=== PATIENT | male | born 1950 ===

== ENCOUNTER 2020-12-25 10:42 | Outpatient (REF) | payer SELFPAY | END 2020-12-25 10:43 | disposition home or self-care (01) | LOC: HO.BBR 10:42 | PROVIDERS: Visit Provider Internal Medicine | DX: Z13.89 Encounter for screening for other disorder (principal) ==

== ENCOUNTER 2021-01-30 08:44 | Outpatient (REF) | payer SELFPAY | END 2021-01-30 08:45 | disposition home or self-care (01) | LOC: HO.BBR 08:44 | PROVIDERS: Visit Provider Internal Medicine | DX: Z13.89 Encounter for screening for other disorder (principal) ==

== ENCOUNTER 2021-02-27 09:21 | Outpatient (REF) | payer SELFPAY | END 2021-02-27 09:22 | disposition home or self-care (01) | LOC: HO.BBR 09:21 | PROVIDERS: Visit Provider Internal Medicine | DX: Z13.89 Encounter for screening for other disorder (principal) ==

== ENCOUNTER 2021-12-29 15:22 | Outpatient (REF) | payer MEDICARE, SELFPAY | END 2021-12-29 15:23 | disposition home or self-care (01) | LOC: HO.BBR 15:22 | PROVIDERS: Visit Provider Internal Medicine | DX: Z13.89 Encounter for screening for other disorder (principal) ==

== ENCOUNTER 2021-12-29 16:43 | Emergency (ER) | payer OTHER, SELFPAY ==
--- NOTE | ~2021-12-29 | CT_ITS ---
EXAMINATION: CT ANGIOGRAM OF THE CHEST WITH AND WITHOUT CONTRAST (CT PULMONARY ANGIOGRAM FOR PE) CLINICAL INFORMATION: Syncope; question pulmonary embolus. COMPARISON: None TECHNIQUE: Prior to contrast administration, noncontrast localization images were obtained. Subsequently, multidetector volumetric imaging was performed from the thoracic inlet to below the diaphragms following the administration of 85 mL Omnipaque 350 intravenous contrast. No contrast reaction reported Sagittal, coronal, and MIP oblique sagittal reformatted images were obtained on the CT workstation, uploaded to PACS, and reviewed. This CT examination was performed using dose optimization techniques as appropriate, variously including the following: *Automated exposure control *Adjustment of mA and/or kV according to patient size (this includes techniques or standardized protocols for targeted exams where dose is matched to indication/reason for exam; i.e. extremities or head) *Use of iterative reconstruction technique Total exam dose-length product 629 mGy-cm FINDINGS: QUALITY OF STUDY/CONTRAST BOLUS: Satisfactory. PULMONARY ARTERIES: No central or segmental pulmonary emboli. THORACIC AORTA: No aneurysm or dissection. LUNG: No focal consolidation, nodules or masses. There are diffuse centrilobular predominant emphysematous change. There is mild bibasilar linear scar/subsegmental atelectasis. There is generalized small airway thickening. The central airways appear patent. PLEURA: No pleural effusion or pneumothorax. MEDIASTINUM: The thyroid is unremarkable. Normal heart size. No significant pericardial effusion. No evidence of septal bowing or right heart strain. There is a mildly enlarged right paratracheal lymph node, with short axis diameter of 1.3 cm (9:199). A right hilar lymph node seen, with short axis diameter of 1.0 cm (9:221). CHEST WALL/AXILLA: No axillary or internal mammary lymphadenopathy. OSSEOUS STRUCTURES: There is multi-level lower cervical and thoracic degenerative disc disease and spondylosis. No acute or aggressive osseous abnormality is seen. UPPER ABDOMEN: Please see accompanying dictation for CT abdomen and pelvis. CT/CT angio chest PE protocol IMPRESSION: 1. No pulmonary embolus is seen. There is no thoracic aortic aneurysm or dissection. 2. There are diffuse emphysematous changes. 3. No pleural effusion is seen. There are mildly enlarged, nonspecific paratracheal and right hilar lymph nodes. Recommend clinical correlation and continued attention on imaging follow-up. 4. There are degenerative changes of the included spine. No acute or aggressive osseous lesion is seen. VTE: negative
--- NOTE | ~2021-12-29 | CT_ITS ---
EXAMINATION: CT ABDOMEN AND PELVIS WITH CONTRAST CLINICAL INFORMATION: Syncope. COMPARISON: None TECHNIQUE: Multidetector volumetric images were obtained from the superior aspect of the liver through the pubic symphysis following administration 85 mL of Omnipaque 350 intravenous contrast. Sagittal and coronal reformatted images were obtained on the technologist's workstation. Oral contrast: No This CT examination was performed using dose optimization techniques as appropriate, variously including the following: *Automated exposure control *Adjustment of mA and/or kV according to patient size (this includes techniques or standardized protocols for targeted exams where dose is matched to indication/reason for exam; i.e. extremities or head) *Use of iterative reconstruction technique DLP: 371 mGy-cm FINDINGS: LUNG BASES: See accompanying report for CTA chest. LIVER, GALLBLADDER, AND BILIARY TREE: The liver is normal in size, shape, and generally diminished in attenuation. Within hepatic segment 7 (16:36), a 1.2 cm simple cyst is seen, with postcontrast Hounsfield value -6.2 units. This is a benign finding, for which no imaging follow-up is recommended. No biliary ductal dilatation is present. The gallbladder is unremarkable with no evidence of radiopaque gallstones, gallbladder wall thickening, or obvious pericholecystic inflammatory changes. PANCREAS: Unremarkable. SPLEEN: Unremarkable. ADRENAL GLANDS: Unremarkable. KIDNEYS AND URETERS: The kidneys are normal in size, shape, and attenuation. No hydronephrosis, hydroureter, or calculi seen. At the upper pole of the right kidney (16:224), a 4.1 cm cyst is seen, with postcontrast Hounsfield value of -4.1 units. This is a benign finding, for which no imaging follow-up is recommended. There is nonspecific bilateral perinephric stranding. BLADDER: A portion of the rightward anterior bladder wall appears partially herniated with a sliding-type right inguinal hernia. No urinary bladder mass or calculus is noted. GASTROINTESTINAL TRACT: There is moderate diverticulosis, without acute diverticulitis. No obstruction, free intraperitoneal air or abscess is seen. There is no focal bowel wall thickening. The vermiform appendix is not seen with certainty; however, there is no finding to suggest acute appendicitis. ABDOMINAL WALL: There is a small fat-containing umbilical hernia. There is a moderate sliding-type right inguinal hernia, containing fat and a portion of the rightward bladder wall. There is a small fat-containing left inguinal hernia. LYMPH NODES: Normal. VASCULAR: There is mild aortoiliac atherosclerotic calcification. No abdominal aortic aneurysm or dissection is seen. PELVIC VISCERA: There is prostatomegaly, with a transverse span of 6.0 cm. The seminal vesicles are unremarkable. OSSEOUS STRUCTURES: There is multi-level thoracolumbar degenerative disc disease, spondylosis and facet arthropathy. Degenerative disc disease is particularly severe at L5-S1, with vacuum phenomenon. No acute or aggressive osseous abnormality is seen. CT/CT abdomen pelvis w IV con IMPRESSION: 1. There is moderate diverticulosis, without acute diverticulitis. No bowel obstruction, free intraperitoneal air or abscess is seen. There is no appendicitis. 2. No abdominopelvic mass, free fluid or lymphadenopathy is seen. 3. There is hepatic steatosis. 4. There is no urinary calculus or obstructive uropathy. 5. There is a moderate sliding-type right inguinal hernia, containing a portion of the anterior rightward bladder wall. Smaller fat-containing left inguinal and umbilical hernia defects are noted. 6. There is prostatomegaly. 7. There are multi-level degenerative changes of the spine. No acute or aggressive osseous findings is seen. Fleischner guidelines were followed.
--- NOTE | ~2021-12-29 | CT_ITS ---
EXAMINATION: NONCONTRAST HEAD CT NONCONTRAST CERVICAL SPINE CT INDICATION INFORMATION: Syncope COMPARISON: None TECHNIQUE: Separate noncontrast CT examinations of the head and cervical spine were performed. Coronal and sagittal images were created for each examination at the technologist workstation. This CT examination was performed using dose optimization techniques as appropriate, variously including the following: *Automated exposure control *Adjustment of mA and/or kV according to patient size (this includes techniques or standardized protocols for targeted exams where dose is matched to indication/reason for exam; i.e. extremities or head) *Use of iterative reconstruction technique DLP: 1585 mGy-cm FINDINGS: HEAD: No intra or extra-axial fluid collection, hemorrhage, or mass. No ventriculomegaly. No midline shift or herniation. Basal cisterns are patent. Montes-white matter differentiation is maintained. No territorial encephalomalacia. Proportional prominence of the ventricles and sulcal spaces is consistent with mild volume loss. Patchy periventricular and deep white matter hypoattenuation is consistent with mild small vessel ischemic changes. No calvarial fracture or soft tissue abnormality. Mild mucosal thickening in the right maxillary antrum. Mastoid air cells normally located. Mild motion artifact from the skull base. CERVICAL SPINE: Alignment: Straightening of the normal cervical lordosis. Minimal anterolisthesis at C4-C5. No additional subluxation. Vertebra: No acute fracture. No prevertebral soft tissue swelling. Degenerative disc disease: Multilevel cervical spondylosis most advanced at C5-C6 and C6-C7 where there is moderate disc height loss, endplate sclerosis and proliferative change. Advanced multilevel bilateral facet arthrosis throughout the cervical and visualized upper thoracic spine. Multilevel uncovertebral spurring. Other findings: Centrilobular emphysema. Visualized lung apices otherwise appear clear allowing for motion artifact. Thyroid gland and major salivary glands unremarkable. No cervical lymphadenopathy. CT/CT cervical spine wo IV con IMPRESSION: 1. No intracranial hemorrhage or calvarial fracture. 2. No traumatic subluxation or acute cervical spine fracture. 3. Mild cerebral atrophy and chronic small vessel ischemic white matter change. 4. Multilevel cervical spondylosis and facet arthrosis.
--- NOTE | 2021-12-29 16:47 | ECG_ITS ---
Test Reason : SYNCOPE Blood Pressure : / mmHG Vent. Rate : 074 BPM Atrial Rate : 000 BPM P-R Int : 000 ms QRS Dur : 086 ms QT Int : 422 ms P-R-T Axes : 000 041 088 degrees QTc Int : 468 ms Normal sinus rhythm short pr Possible Inferior infarct , age undetermined Abnormal ECG No previous ECGs available Referred By: Marco Antonio Nieves Electronically Signed By:BRYAN TRENT MD
[2021-12-29 16:50] VITALS: BP 97/57; PULSE 70; RESP 15; TEMP 36.9; O2SAT 93; BMI 31.1
[2021-12-29 17:03] LABS: Glucose, Whole Blood 137 mg/dL (60-115)
--- NOTE | 2021-12-29 17:11 | ED.GENADULT ---
HPI - General Adult General Chief complaint: Syncope Stated complaint: dizzy Time Seen by Provider: 12/29/21 16:47 Source: patient Mode of arrival: ambulatory Limitations: no limitations History of Present Illness HPI narrative: 71 yold male with hemachromotosis presents to ED for syncopal episodes while having his blood drawned. Patient states he always syncopizes when he has blood blood draws. Nursing stonemason supervisor states patient passed out. She states patient slumped in the chair. Patient presently is asymptomatic. patient states history of hypotension. Related Data Allergies Allergy/AdvReac Type Severity Reaction Status Date / Time No Known Allergies Allergy Verified 12/29/21 16:47 ON LICENSE OF [facility] Social History Social History Advance Directives: No Advance Directives Information Provided: No Physical Exam ED Vital Signs: Vital Signs - 24 hr 12/29/21 16:50 12/29/21 20:43 12/29/21 20:43 Temperature 98.4 F Pulse Rate 70 79 85 Respiratory Rate 15 Blood Pressure 97/57 L 108/68 100/64 Pulse Oximetry 93 Oxygen Delivery Method Room Air 12/29/21 20:45 12/29/21 22:26 Temperature Pulse Rate 93 93 Respiratory Rate 18 Blood Pressure 108/65 108/65 Pulse Oximetry 95 Oxygen Delivery Method Room Air BMI result Body Mass Index 31.1 Const General: cooperative, healthy appearing, comfortable, no acute distress, well developed, alert and awake Orientation/consciousness: oriented to person, oriented to place, oriented to time and patient oriented x3 [facility]: Yes normal to inspection, Yes No palpable skull fracture present, Yes normocephalic, Yes atraumatic and No abrasion Eyes General: appearance normal, both eyes and all related structures Neck Neck: Yes normal visual inspection, Yes full ROM, Yes no lymphadenopathy, Yes no meningeal signs, Yes trachea midline, Yes supple, No anterior neck swelling and No tender Chest Chest palpation & inspection: normal inspection of the chest and normal palpation of entire chest wall Resp Effort & Inspection: normal respiratory effort and able to speak in complete sentences Auscultation: clear to auscultation bilaterally Cardio Jugular venous distension: no JVD Heart sounds: S1 normal heart sound present and S2 normal heart sound present GI Inspection: Yes normal to inspection and No abdominal wall ecchymosis Palpation (GI): Soft to palpation, not firm, nontender, no guarding and not rigid General: No CVA tenderness and Yes no CVA tenderness Back/Spine/Pelvis Back: no CVA tenderness, No CVA tenderness and No back tenderness Skin General skin exam: no rashes or lesions noted and elasticity normal Neuro Other: Negative slight slurred speech. Negative facial droop. Negative pronator drift. All extremities equal strength 5+. Finger to nose rapid hand movement intact. Negative Romberg. General: oriented to person, oriented to place, oriented to time, patient oriented x3, gait normal, tone normal, no meningeal signs, no focal motor deficits and CN's II-XI intact bilaterally Cranial nerves: Yes CN's II-XII intact bilaterally Extrem Other: Lower extremity negative for swelling, pitting edema, calf tenderness General: Yes normal to inspection and Yes full ROM Psych Appearance: grossly normal, well kempt and not disheveled Course Course Course Narrative: EKG, POC, vital signs, patient placed on monitor. Patient this occurs every time his blood drawn probably vasovagal but due to age will do medical workup. Reevaluation(s) Reevaluation #1: Although most likely patient has vasovagal syncopal episode patient was sent for chest CT to make sure there is no PE. Patient has 2 troponins negative. EKG negative STEMI. Head CT cervical spine abdominal CT scan was normal. Orthostatics negative. Patient has normal gait. Patient does not want to be admitted. Patient recommended admission for observation, further evaluatoins and to check for possible arrhythmia but patient refused and states he will follow up with primary care provider. Patient given copy of labs, EKG, and images told to follow up with primary care and given contact formation for senior java architect. Time: 23:04 Medications Administered Discontinued Medications Generic Name Dose Route Start Last Admin Trade Name Rjq PRN Reason Stop Dose Admin Sodium Chloride 1,000 mls @ 999 mls/hr 12/29/21 16:48 12/29/21 18:42 Ns IV 12/29/21 17:48 Infused .Q1H1M STA Infusion Sodium Chloride 1,000 mls @ 999 mls/hr 12/29/21 16:51 12/29/21 21:22 Ns IV 12/29/21 17:51 Infused .Q1H1M STA Infusion Iohexol 100 ml 12/29/21 20:36 12/29/21 20:36 Iohexol 350 Mg/Ml 100 Ml Infus..Btl IV 12/29/21 20:37 85 ml ONCE ONE Administration Medical Decision Making MDM Narrative Medical decision making narrative: syncope. Lab Data Result diagrams: 12/29/21 17:13 12/29/21 17:13 Labs: Lab Results 12/29/21 12/29/21 12/29/21 Range/Units 16:58 17:13 17:13 WBC 7.2 (4.8-10.8) X10*3/uL RBC 4.75 (4.60-5.80) X10*6/uL Hgb 15.0 (14.0-18.0) g/dl Hct 44.7 (42.0-52.0) % MCV 94.1 (80.0-98.0) fL MCH 31.6 (27.0-33.0) pg MCHC 33.6 (31.0-36.0) g/dl RDW 12.8 (11.0-16.0) % Plt Count 172 (160-400) X10*3/uL MPV 9.8 (9.4-12.4) fL Immature Gran % (Auto) 0.3 (0.0-0.4) % Neut % (Auto) 58.6 (45-73) % Lymph % (Auto) 30.6 (20-40) % [place] % (Auto) 8.4 (2-11) % Eos % (Auto) 1.5 (0-4) % Baso % (Auto) 0.6 (0-2) % Lymph # (Auto) 2.2 (1.2-4.9) X10*3/uL [place] # (Auto) 0.6 (0.1-1.2) X10*3/uL Eos # (Auto) 0.1 (0.0-0.4) X10*3/uL Baso # (Auto) 0.0 (0.0-0.2) X10*3/uL Abs Immat Gran (auto) 0.02 (0.00-0.03) X10*3/uL Absolute Neuts (auto) 4.2 (2.0-8.3) x10*3/uL Absolute Nucleated RBC 0.000 (0.0-0.012) X10*3/uL Nucleated RBC % (auto) 0.0 (0.0-0.2) /100WBC PT (10.0-13.1) SEC INR (0.9-1.1) APTT (26.0-36.4) SEC Sodium 142 (135-145) mmol/L Potassium 4.1 (3.3-5.1) mmol/L Chloride 102 (96-108) mmol/L Carbon Dioxide 32 H (22-29) mmol/L Anion Gap 12 (12-20) BUN 16 (9-16) mg/dL Creatinine 0.88 (0.5-1.4) mg/dL Estim Creat Clear Calc 93.3 Estimated GFR > 60 POC Glucose 137 H (60-115) mg/dL Random Glucose 152 H (60-115) mg/dL Calcium 8.8 (8.4-10.2) mg/dL Total Bilirubin 0.3 (0.0-1.0) mg/dL AST 18 (5-37) U/L ALT 30 (0-40) U/L Alkaline Phosphatase 81 (39-117) U/L Troponin I High Sens (<3.5-35.0) ng/L B-Natriuretic Peptide (<100) pg/mL Total Protein 5.8 L (6.5-8.0) g/dL Albumin 3.7 (3.5-5.0) g/dL 12/29/21 12/29/21 12/29/21 Range/Units 17:13 17:13 17:13 WBC (4.8-10.8) X10*3/uL RBC (4.60-5.80) X10*6/uL Hgb (14.0-18.0) g/dl Hct (42.0-52.0) % MCV (80.0-98.0) fL MCH (27.0-33.0) pg MCHC (31.0-36.0) g/dl RDW (11.0-16.0) % Plt Count (160-400) X10*3/uL MPV (9.4-12.4) fL Immature Gran % (Auto) (0.0-0.4) % Neut % (Auto) (45-73) % Lymph % (Auto) (20-40) % [place] % (Auto) (2-11) % Eos % (Auto) (0-4) % Baso % (Auto) (0-2) % Lymph # (Auto) (1.2-4.9) X10*3/uL [place] # (Auto) (0.1-1.2) X10*3/uL Eos # (Auto) (0.0-0.4) X10*3/uL Baso # (Auto) (0.0-0.2) X10*3/uL Abs Immat Gran (auto) (0.00-0.03) X10*3/uL Absolute Neuts (auto) (2.0-8.3) x10*3/uL Absolute Nucleated RBC (0.0-0.012) X10*3/uL Nucleated RBC % (auto) (0.0-0.2) /100WBC PT 11.5 (10.0-13.1) SEC INR 1.0 (0.9-1.1) APTT 25.9 L (26.0-36.4) SEC Sodium (135-145) mmol/L Potassium (3.3-5.1) mmol/L Chloride (96-108) mmol/L Carbon Dioxide (22-29) mmol/L Anion Gap (12-20) BUN (9-16) mg/dL Creatinine (0.5-1.4) mg/dL Estim Creat Clear Calc Estimated GFR POC Glucose (60-115) mg/dL Random Glucose (60-115) mg/dL Calcium (8.4-10.2) mg/dL Total Bilirubin (0.0-1.0) mg/dL AST (5-37) U/L ALT (0-40) U/L Alkaline Phosphatase (39-117) U/L Troponin I High Sens < 3.5 (<3.5-35.0) ng/L B-Natriuretic Peptide 14 (<100) pg/mL Total Protein (6.5-8.0) g/dL Albumin (3.5-5.0) g/dL 12/29/21 Range/Units 20:16 WBC (4.8-10.8) X10*3/uL RBC (4.60-5.80) X10*6/uL Hgb (14.0-18.0) g/dl Hct (42.0-52.0) % MCV (80.0-98.0) fL MCH (27.0-33.0) pg MCHC (31.0-36.0) g/dl RDW (11.0-16.0) % Plt Count (160-400) X10*3/uL MPV (9.4-12.4) fL Immature Gran % (Auto) (0.0-0.4) % Neut % (Auto) (45-73) % Lymph % (Auto) (20-40) % [place] % (Auto) (2-11) % Eos % (Auto) (0-4) % Baso % (Auto) (0-2) % Lymph # (Auto) (1.2-4.9) X10*3/uL [place] # (Auto) (0.1-1.2) X10*3/uL Eos # (Auto) (0.0-0.4) X10*3/uL Baso # (Auto) (0.0-0.2) X10*3/uL Abs Immat Gran (auto) (0.00-0.03) X10*3/uL Absolute Neuts (auto) (2.0-8.3) x10*3/uL Absolute Nucleated RBC (0.0-0.012) X10*3/uL Nucleated RBC % (auto) (0.0-0.2) /100WBC PT (10.0-13.1) SEC INR (0.9-1.1) APTT (26.0-36.4) SEC Sodium (135-145) mmol/L Potassium (3.3-5.1) mmol/L Chloride (96-108) mmol/L Carbon Dioxide (22-29) mmol/L Anion Gap (12-20) BUN (9-16) mg/dL Creatinine (0.5-1.4) mg/dL Estim Creat Clear Calc Estimated GFR POC Glucose (60-115) mg/dL Random Glucose (60-115) mg/dL Calcium (8.4-10.2) mg/dL Total Bilirubin (0.0-1.0) mg/dL AST (5-37) U/L ALT (0-40) U/L Alkaline Phosphatase (39-117) U/L Troponin I High Sens < 3.5 (<3.5-35.0) ng/L B-Natriuretic Peptide (<100) pg/mL Total Protein (6.5-8.0) g/dL Albumin (3.5-5.0) g/dL ECG Data Interpretation: Accelerated junctional rhythm. Ventricular rate 74. QRS 86. QTC 468. Negative STEMI Discharge Plan Discharge Clinical Impression: Syncope Patient Disposition: Home, Self-Care Instructions: Syncope (ED), Syncope in Older Adults (ED) Additional Instructions: please follow-up with primary care provider and senior java architect. Return to the ED for syncopal episode, chest pain, shortness of breath, headache, dizziness, slurred speech, facial droop, paralysis of extremities, dizziness, loss of vision, or any other concerning symptoms. Referrals: [facility] [place] Cardiovascular Services [Provider Group] ( Syncopal episode) Interventions: ED Discharge Assessment Last Done: 12/29/21 23:21 Discharge Date/Time: 12/29/21 23:21 Print Language: Malay
--- OUTSIDE RECORDS SUMMARY | 2021-12-29 17:12 | XMS_ITS | Continuity of Care Document ---
:1950 Author Organization [facility] Care Team Providers Name Role Phone [facility] Unavailable Unavailable Problems Combined list of problems from Department of Defense and Veterans Affairs facilities. It does not include entries that were removed or entered in error. Problem Status Onset Problem Date of Comments Source Date Type Resolution Hemochromatosis Active 02/14/ Condition Mar 29 2 [facility] (SNOMED CT 1995 Entered By: APRYL [id number]) MARIAH TORO Comment: DR EMILIE Hunter at [facility], phlebotomy. Benign prostatic Active Condition [facility] hyperplasia [facility] [place] [facility] Centriacinar Active Condition [facility] emphysema [facility] [place] [facility] Counseling on Active Condition [facility] Sexually [facility] Transmitted [place] Diseases (ICD-9-CM H CS V65.45) Depressive Disorder Active Condition [facility] NEC (ICD-9-CM 311.) [facility] [place] [facility] Elevated Prostate Active Condition [facility] Specific Antigen WST RN (PSA) (ICD-9-CM [place] 790.93) HCS Erectile Active Condition [facility] dysfunction (SNOMED WSTRN [place] 788332145) [place] [facility] Hemochromatosis Active Condition [facility] [place] [facility] History of Active Condition Apr 01, 2010 [facility] colonoscopy Entered By: TRISH PRICE MD Comment: HCS Multihyperplastic polyps rectosigmoid, 3 - 5 yr f/u, Jun 02, 2018 Entered By: VIRA CRUZ Comment: screening colonoscopy was done 2017 Impacted cerumen * Active Condition V A CNTRL (ICD-9-CM 380.4) [facility] [place] [facility] Impaired fasting Active Condition [facility] glucose [facility] [place] [facility] Nicotine dependence Active Condition [facility] (SNOMED CT [facility] 98258069) [place] [facility] Obesity Active Condition [facility] [place] [facility] Open Angle Glaucoma Active Condition [facility] Suspect [facility] [place] [facility] Encounter for Inactive Condition 03/09/2010 [facility] Vocational Therapy [facility] (ICD-9-CM V57.22) [place] [facility] Lack of Housing Inactive Condition 03/09/2010 [facility] [place] [facility] Microscopic Inactive Condition 04/01/2010 [facility] Hematuria [facility] [place] [facility] Diagnosis: Active Diagnosis [facility] ICD-10-CM Z71.9 [facility] N Counseling, [place] unspecifiedwith HCS Provider Comments: Counseling, unspecified Diagnosis: Active Diagnosis [facility] ICD-10-CM J43.2 W[facility] N Centrilobular [place] emphysemawith HCS Provider Comments: Centriacinar emphysema (SCT [id number]) Diagnosis: Active Diagnosis [facility] ICD-10-CM Z71.89 WST RN Other specified [place] counselingwith HCS Provider Comments: Counseling,Other Specified Diagnosis: Active Diagnosis [facility] ICD-10-CM Z23 [facility] Encounter for [place] immunizationwith HCS Provider Comments: Encounter for immunization (ICD-10-CM Z23.) Diagnosis: Active Diagnosis [facility] ICD-10-CM Z23 [facility] Encounter for [place] immunizationwith HCS Provider Comments: Encounter for Immunization Diagnosis: Active Diagnosis [facility] ICD-10-CM J44.9 WSTR N Chronic obstructive [place] pulmonary disease, H CS unspecifiedwith Provider Comments: Chronic Obstructive Pulmonary Disease, unspecified Diagnosis: Active Diagnosis [facility] ICD-10-CM H40.013 WS TRN Open angle with [place] borderline HCS findings, low risk, bilateralwith Provider Comments: Glaucoma Suspect,Low Risk,Bilateral Diagnosis: Active Diagnosis [facility] ICD-10-CM D22.9 WSTR N Melanocytic nevi, [place] unspecifiedwith HCS Provider Comments: Melanocytic Nevi, unspecified Diagnosis: Active Diagnosis [facility] ICD-10-CM Z13.89 WST RN Encounter for [place] screening for other HCS disorderwith Provider Comments: Encounter for Screening for other Disorder Diagnosis: Active Diagnosis [facility] ICD-10-CM E83.118 [facility] TRN Other [place] hemochromatosiswith HCS Provider Comments: Hemochromatosis (SCT [id number]) Medications Combined list of outpatient medications from Department of Defense and Veterans Affairs facilities. Medications provided include 1) outpatient medications from the last 15 months, and 2) patient-reported medications. Medication Details Route Status Patient Prescription Prescription Last Ordering Order Source Instructions Expires Number Dispense Provider Date Date ALBUTEROL INHALE 2 INHALA ACTIVE 05/05/2022 [id number] [facility] [place] 90[place]G/ACTUA PUFFS BY TION 2 AM2021 CNTRL T (CFC-F) MOUTH ORAL JAWED WSTRN INHL,ORAL,8 FOUR [place] .5GM DOSE TIMES SETS COUNTER DAILY HCS NEEDED FOR BREATHIN G AZITHROMYCI TAKE TWO ORAL ACTIVE 01/08/2022 [id number] [facility] [place] [place] 250MG TAB TABLETS 2 AM2021 CNTRL BY MOUTH JAWED [place] ONCE [place] DAILY SETS FOR 1 HCS DAY, THEN TAKE ONE TABLET ONCE DAILY FOR 4 DAYS BUDESONIDE INHALE 2 INHALA DISCONT 09/04/2021 [id number] A [facility] [place] [facility] 160MCG/FORM PUFFS BY TION INUED 1 AM2020 CNTRL OTEROL FUM MOUTH ORAL (EDIT) JAWED WSTRN 4.5MCG/SPRA TWICE [place] Y DAILY - SETS INHL,ORAL,1 RINSE HCS 0.2GM MOUTH AFTER USE FINASTERIDE TAKE ONE ORAL ACTIVE 11/20/2022 [id number] A [facility] [place] 5MG TAB TABLET 2 AMMED 2021 CNTRL BY MOUTH JAWED [place] ONCE [place] DAILY SETS FOR HCS PROSTATE FINASTERIDE TAKE ONE ORAL DISCONT 10/30/2021 [id number] A [facility] [place] 5MG TAB TABLET INUED 1 AM2020 CNTRL BY MOUTH JAWED [place] ONCE [place] DAILY SETS FOR HCS PROSTATE FLUTICASONE INHALE 1 INHALA ACTIVE 11/20/2022 [id number] A [facility] [place] [facility] 250MCG/SALM PUFF BY TION 2 AM2021 CNTRL ETEROL MOUTH ORAL JAWED WSTRN 50MCG TWICE [place] INHL,ORAL,D DAILY SETS ISKUS,60 FOR HCS BREATHIN G - RINSE MOUTH AFTER USE FLUTICASONE INHALE 1 INHALA DISCONT 01/15/2022 [id number] A ED[place] [place]/ [facility] 250MCG/SALM PUFF BY TION INUED 2 AM2020 CNTRL ETEROL MOUTH ORAL JAWED [facility]STR[facility] 50MCG TWICE [place] INHL,ORAL,D DAILY SETS ISKUS,60 FOR HCS BREATHIN G - RINSE MOUTH AFTER USE IBUPROFEN TAKE ONE ORAL ACTIVE 05/05/2022 [id number] [facility] [place] 600MG TAB TABLET 2 AM2021 CNTRL BY MOUTH JAWED WSTR[facility] THREE [place] TIMES A SETS DAY TAKE HCS WITH FOOD; FOR PAIN/INF LAMMATIO N/SWELLI NG PREDNISONE TAKE ORAL ACTIVE 01/08/2022 [id number] [facility] [place] [facility] 10MG TAB FOUR 2 2021 CNTRL TABLETS JAWED [facility] BY MOUTH [place] ONCE SETS DAILY HCS FOR 3 DAYS, THEN TAKE TWO TABLETS ONCE DAILY FOR 3 DAYS, THEN TAKE ONE TABLET ONCE DAILY FOR 3 DAYS SILDENAFIL TAKE ONE ORAL ACTIVE 11/20/2022 [id number] [facility] CITRATE TABLET 2 AM2021 CNTRL 100MG TAB BY MOUTH JAWED WSTRN ONCE A [place] WEEK SETS TAKE 1 HCS HOUR PRIOR TO SEXUAL ACTIVITY (NOTE NEW TABLET STRENGTH ) TAKE AT LEAST 12 HOURS APART FROM TAMULOSI N SILDENAFIL TAKE ONE ORAL DISCONT 05/05/2022 [id number] [facility] [place] TABLET INUED 2 AM2021 CNTRL 100MG TAB BY MOUTH JAWED WSTRN ONCE A [place] WEEK SETS TAKE 1 HCS HOUR PRIOR TO SEXUAL ACTIVITY (NOTE NEW TABLET STRENGTH ) TAKE AT LEAST 12 HOURS APART FROM TAMULOSI N TAMSULOSIN TAKE ONE ORAL ACTIVE 11/20/2022 [id number] [facility] [place] HCL 0.4MG CAPSULE 2 AMMED 2021 CNTRL CAP BY MOUTH JAWED [facility]STR[facility] AT [place] BEDTIME SETS HCS TAMSULOSIN TAKE ONE ORAL DISCONT 10/30/2021 [id number] A [facility] [place]/ [facility] HCL 0.4MG CAPSULE INUED 2 AMMED 2020 CNTRL CAP BY MOUTH JAWED [facility] AT [place] BEDTIME SETS HCS TIOTROPIUM INHALE 2 INHALA ACTIVE 11/20/2022 [id number] AH MED,[facility] 2.5MCG/ACTU PUFFS BY TION 2 AMMED 2021 CNTRL AT MOUTH ORAL JAWED WSTRN INHL,ORAL,6 ONCE [place] 0D,4GM DAILY SETS HCS TIOTROPIUM INHALE 2 INHALA DISCONT 05/05/2022 [id number] A [facility] 2.5MCG/ACTU PUFFS BY TION INUED 2 AMMED 2021 CNTRL AT MOUTH ORAL JAWED WSTRN INHL,ORAL,6 ONCE [place] 0D,4GM DAILY SETS HCS Allergies, Adverse Reactions, Alerts Combined list of allergies from Department of Defense and Veterans Affairs facilities. It does not include entries that were removed or entered in error. Substance Category Reaction Severity Reaction Status Date Comments S ource type Reported CHANTIX Propensity Anxiety Propensity active [facility] to adverse to adverse 0 WS TRN reactions reactions [place] to drug to drug S [facility] (finding) (finding) Immunizations Combined list of available immunizations from the Department of Defense and Veterans Affairs facilities. Immunization Series Date Administered Site Reaction Lot CVX Drug St atus Comments Source Given By Number Code Compliance Review Officer INFLUENZA complet V A VACCINE, 2021 ed CNTRL QUADRIVALENT, [facility]N ADJUVANTED [place] HCS ZOSTER 2 complet [facility] RECOMBINANT 2021 ed CN TRL [facility] [place] [facility] [facility] COVID-19 3 complet MOD; VA (MODERNA), 2020 ed [id number]; CNTRL MRNA, LNP-S, 02 WSTRN PF, 100 MCG 2 [place] [facility] OR 50 MCG SETS DOSE HCS INFLUENZA complet V A VACCINE, 2020 ed CNTRL QUADRIVALENT, [facility] ADJUVANTED [place]CS PNEUMOCOCCAL complet VA POLYSACCHARID 2020 ed [facility]TRL E PPV23 [facility] [place] [facility] [facility] TDAP complet [facility] 2020 ed [facility] [place] [facility] [facility] ZOSTER 1 complet VA RECOMBINANT 2020 ed CN TRL [facility] [place] [facility] HCS COVID-19 2 complet MOD; VA (MODERNA), 2020 ed [id number]; CNTRL MRNA, LNP-S, 02 WSTRN PF, 100 1 [place] MCG/0.5 ML SET S DOSE HCS COVID-19 1 complet MOD; VA (MODERNA), 2020 ed [id number]; CNTRL MRNA, LNP-S, 02 WSTRN PF, 100 1 [place] MCG/0.5 ML SET S DOSE HCS INFLUENZA, complet VA UNSPECIFIED 2019 ed CN TRL FORMULATION WS TRN [place] [facility] PNEUMOCOCCAL complet VA CONJUGATE PCV 2014 ed CNTRL 13 [facility] [place] [facility]CS ZOSTER complet Proximal V A (SHINGLES) 2014 ed Left Arm CNTRL (HISTORICAL) [facility] [place] [facility] [facility] DTAP, complet Site: [facility] UNSPECIFIED 2010 ed Left CN TRL FORMULATION Deltoid [facility] [place] [facility] PNEUMOCOCCAL, 03/18/ KEITH CESAR 109 com plet VA UNSPECIFIED 2005 N D ed CN TRL FORMULATION WS TRN [place] [facility] [facility]CS Results Combined list of recent chemistry, hematology and other laboratory results from Department of Defense and Veterans Affairs, ranging from 15 months to all on record, depending upon the facility. Order Results Value Reference Date Interpretation Specimen Commen ts Source Name Range HEMOGLOBI HEMOGLOBIN 5.8 4.0 - 5.6 10/06 H Specimen Type: BLOOD [facility] N A1C A1C/HEMOGLO /2021 Comment: Va lues obtained from A1C measurements can vary. For typical A1C assays, a reported value of 7.0 could actually be between 6.72 and 7.28 if measured by a reference method. A reported value of 9 WSTRN PANEL BIN.TOTAL .0 could actua lly be between 8.73 and 9.27. Ref: [email or web address]://www.ngsp.org/CAPdata.[email or web address] [place] IN BLOOD BY Ordering Pr ovider: VIRA CRUZ [facility] HPLC Report Released Date/Time: Nov 18, 2021 08:44 PM Reporting Lab: [facility] [place] [place] [address] [address] Performing Lab: [facility] [place] [place] [address] [address] FERRITIN FERRITIN 299.9 20 - 300 10 Specimen Type : SERUM [facility] [MASS/VOLUM /2021 No comment e ntered. WSTRN E] IN SERUM Ordering Pr ovider: VIRA CRUZ JAWED [place] OR PLASMA Report Releas ed Date/Time: Nov 18, 2021 08:49 PM [facility] Reporting Lab: [facility] [place] [address] [address] Performing Lab: [facility] [place] [address] [address] LIPID CHOLESTEROL 158 7 - 199 11/19 Specimen Typ e: SERUM [facility] PANEL [MASS/VOLUM /2021 No comment e ntered. WSTRN FASTING E] IN SERUM Ordering Pr ovider: VIRA CRUZ JAWED [place] OR PLASMA Report Releas ed Date/Time: Nov 18, 2021 08:44 PM [facility] Reporting Lab: [facility] [place] [address] [address] Performing Lab: [facility] [place] [address] [address] LIPID TRIGLYCERID 104 0 - 150 11/19 Specimen Typ e: SERUM [facility] PANEL E /2021 No comment enter ed. WSTRN FASTING [MASS/VOLUM Ordering Pr ovider: VIRA CRUZ JAWED [place] E] IN SERUM Report Rele ased Date/Time: Nov 18, 2021 08:44 PM HCS OR PLASMA Reporting Lab : [facility] [place] [place] [facility] [address] [facility] [address] Performing Lab: [facility] [place] [place] [facility] [address] [facility] [address] LIPID CHOLESTEROL 95 0 - 129 10 Specimen Typ e: SERUM [facility] PANEL IN LDL /2021 No comment enter ed. WSTRN FASTING [MASS/VOLUM Ordering Pr ovider: VIRA CRUZ [place]AWED [place] E] IN SERUM Report Rele ased Date/Time: Nov 18, 2021 08:44 PM TS HCS OR PLASMA Reporting Lab : [facility] [place] [facility] BY [address] [facility] [address] CALCULATION Performing Lab: [facility] [place] [address] [address] LIPID CHOLESTEROL 3.8 11/19 Specimen Typ e: SERUM [facility] PANEL .TOTAL/CHOL /2021 No comment e ntered. WSTRN FASTING ESTEROL IN Ordering Pro vider: VIRA CRUZ JAWED [place] HDL [MASS Report Releas ed Date/Time: Nov 18, 2021 08:44 PM TS HCS RATIO] IN Reporting Lab : [facility] [place] [facility] SERUM OR [address] [facility] [address] PLASMA Performing Lab: [facility] [place] [place] [facility] [address] [facility] [address] LIPID CHOLESTEROL 42 40 - 60 11/19 Specimen Typ e: SERUM [facility] PANEL IN HDL /2021 No comment enter ed. WSTRN FASTING [MASS/VOLUM Ordering Pr ovider: VIRA CRUZ JAWED [place] E] IN SERUM Report Rele ased Date/Time: Nov 18, 2021 08:44 PM TS HCS OR PLASMA Reporting Lab : [facility] [place] [place] [facility] [address] [facility] [address] Performing Lab: [facility] [place] [place] [address] [address] LIVER PROTEIN 6.4 6.0 - 8.3 11/19 Specimen Type: SERUM [facility] FUNCTION [MASS/VOLUM /2021 No comment entered. WSTRN E] IN SERUM Ordering Pr ovider: AHMED,MOHAMMED JAWED [place] OR PLASMA Report Releas ed Date/Time: Nov 18, 2021 08:44 PM TS [facility] Reporting Lab: [facility] [place] [place] [facility] [address] [facility] [address] Performing Lab: [facility] [place] [place] [facility] [address] [facility] [address] LIVER ALBUMIN 3.9 3.5 - 5.0 11/19 Specimen Type: SERUM [facility] FUNCTION [MASS/VOLUM /2021 No comment entered. WSTRN E] IN SERUM Ordering Pr ovider: ANTHONY,HIENED JAWED [place] OR PLASMA Report Releas ed Date/Time: Nov 18, 2021 08:44 PM TS [facility] Reporting Lab: [facility] [place] [place] [facility] [address] [facility] [address] Performing Lab: [facility] [place] [place] [address] [address] LIVER ALKALINE 86 40 - 150 11/19 Specimen Type: SERUM [facility] FUNCTION PHOSPHATASE No comment entered. WSTRN [ENZYMATIC Ordering Pro vider: HIEN CRUZSANTHOSH JAWED [place] ACTIVITY/VO Report Rele ased Date/Time: Nov 18, 2021 08:44 PM TS HCS LUME] IN Reporting Lab: [facility] [place] [place] [facility] SERUM OR [address] [facility] [address] PLASMA Performing Lab: [facility] [place] [place] [address] [address] LIVER ASPARTATE 20 5 - 34 11/19 Specimen Type: SERUM [facility] FUNCTION AMINOTRANSF /2021 No comment entered. WSTRN ERASE Ordering Provid er: VIRA CRUZ JAWED [place] [ENZYMATIC Report Relea sed Date/Time: Nov 18, 2021 08:44 PM TS HCS ACTIVITY/VO Reporting L ab: [facility] [place] [place] [facility] LUME] [place] [address] [place] [address] SERUM OR Performing Lab : [facility] [place] [facility] PLASMA [address] [facility] [address] LIVER ALANINE 31 6 - 55 11/19 Specimen Type: S MARI [facility] FUNCTION AMINOTRANSF /2021 No comment entered. WSTRN ERASE Ordering Provid er: AHMED,MOHAMMED JAWED [place] [ENZYMATIC Report Relea sed Date/Time: Nov 18, 2021 08:44 PM TS HCS ACTIVITY/VO Reporting L ab: [facility] [place] [facility] LUME] [place] [address] [facility] [address] SERUM OR Performing Lab : [facility] [place] [facility] PLASMA [address] [facility] [address] LIVER BILIRUBIN.T 0.9 0.2 - 1.2 11/19 Specimen T ype: SERUM [facility] FUNCTION OTAL /2021 No comment ente red. WSTRN [MASS/VOLUM Ordering Pr ovider: AHMED,MOHAMMED JAWED [place] E] IN SERUM Report Rele ased Date/Time: Nov 18, 2021 08:44 PM TS HCS OR PLASMA Reporting Lab : [facility] [place] [facility] [address] [place] [address] Performing Lab: [facility] [place] [facility] [address] [place] [address] IRON & IRON 246 204 - 475 10/ Specimen Type: SERUM [facility] TIBC BINDING /2021 No comment enter ed. WSTRN PANEL CAPACITY Ordering Provi loco: AHMED,MOHAMMED JAWED [place] [MASS/VOLUM Report Rele ased Date/Time: Nov 18, 2021 08:49 PM TS HCS E] IN SERUM Reporting L ab: [facility] [place] HCS OR PLASMA [address] [facility] [address] Performing Lab: [facility] [place] [facility] [address] [place] [address] IRON & IRON 248 40 - 160 10/ H Specimen Type: SERUM [facility] TIBC [MASS/VOLUM /2021 No comment e ntered. WSTRN PANEL E] IN SERUM Ordering Pr ovider: AHMED,MOHAMMED JAWED [place] OR PLASMA Report Releas ed Date/Time: Nov 18, 2021 08:49 PM TS HCS Reporting Lab: [facility] [place] [facility] [address] [place] [address] Performing Lab: [facility] [place] [facility] [address] [facility] [address] IRON & IRON/IRON 101.0 20.0 - 10/06 H Specimen Type: [facility] TI[facility] BIND[facility] 50.0 /2021 No comment enter ed. WSTRN PANEL CAPACITY.TO Ordering Pr ovider: VIRA CRUZ JAWSANTHOSH [place] KEVIN [MASS Report Releas ed Date/Time: Nov 18, 2021 08:49 PM TS HCS RATIO] IN Reporting Lab : [facility] SER[facility] OR [address] [facility] [address] PLASMA Performing Lab: [facility] [address] [facility] [address] BASIC UREA 18 7 - 25 10 Specimen Type: S MARI [facility] METABOLIC NITROGEN /2021 No comment en tered. WSTRN PANEL [MASS/VOLUM Ordering Pr ovider: VIRA CRUZ JAWED [place] (fasting) E] IN SERUM Report Re leased Date/Time: Nov 18, 2021 08:44 PM TS HCS OR PLASMA Reporting Lab : [facility] [place] [facility] [address] [facility] [address] Performing Lab: [facility] [place] [facility] [address] [facility] [address] BASIC GLUCOSE 117 65 - 100 10/06 H Specimen Type: SERUM [facility] METABOLIC [MASS/VOLUM /2021 No comment entered. WSTRN PANEL E] IN SERUM Ordering Pr ovider: VIRA CRUZ JAWED [place] (fasting) OR PLASMA Report Rele ased Date/Time: Nov 18, 2021 08:44 PM TS HCS Reporting Lab: [facility] [place] [facility] [address] [facility] [address] Performing Lab: [facility] [address] [facility] [address] BASIC SODIUM 140 135 - 145 10 Specimen Type: SERUM [facility] METABOLIC [MOLES/VOLU /2021 No comment entered. WSTRN PANEL ME] IN Ordering Provid er: VIRA CRUZ JAWED [place] (fasting) SERUM OR Report Relea sed Date/Time: Nov 18, 2021 08:44 PM TS [facility] PLASMA Reporting Lab: [facility] [place] [facility] [address] [facility] [address] Performing Lab: [facility] [place] [facility] [address] [facility] [address] BASIC POTASSIUM 4.5 3.5 - 5.0 11/19 Specimen Typ e: SERUM [facility] METABOLIC [MOLES/VOLU /2021 No comment entered. WSTRN PANEL ME] IN Ordering Provid er: DK CRUZSOILAED JAWED [place] (fasting) SERUM OR Report Relea sed Date/Time: Nov 18, 2021 08:44 PM TS [facility] PLASMA Reporting Lab: [facility] [place] [facility] [address] [facility] [address] Performing Lab: [facility] [place] [address] [address] BASIC CHLORIDE 103 100 - 110 11/19 Specimen Type : SERUM [facility] METABOLIC [MOLES/VOLU /2021 No comment entered. WSTRN PANEL ME] IN Ordering Provid er: DK CRUZDAVID JAWED [place] (fasting) SERUM OR Report Relea sed Date/Time: Nov 18, 2021 08:44 PM [facility] PLASMA Reporting Lab: [facility] [place] [address] [address] Performing Lab: [facility] [place] [address] [address] BASIC CARBON 27 20 - 30 11/19 Specimen Type: S MARI [facility] METABOLIC DIOXIDE, No comment en tered. WSTRN PANEL TOTAL Ordering Provid er: DK CRUZSOILASANTHOSH JAWED [place] (fasting) [MOLES/VOLU Report Re leased Date/Time: Nov 18, 2021 08:44 PM [facility] ME] IN Reporting Lab: [facility] [place] [facility] SERUM OR [address] [place] [address] PLASMA Performing Lab: [facility] [place] [address] [address] BASIC CREATININE 0.91 0.50 - 10 Specimen Type : SERUM [facility] METABOLIC [MASS/VOLUM 1.40 /2021 No comment entered. WSTRN PANEL E] IN SERUM Ordering Pr ovider: VIRA CRUZED [place] (fasting) OR PLASMA Report Rele ased Date/Time: Nov 18, 2021 08:44 PM TS HCS Reporting Lab: [facility] [place] [facility] [address] [facility] [address] Performing Lab: [facility] [place] [facility] [address] [facility] [address] BASIC GLOMERULAR 89 60 11/19 Specimen Type : SERUM [facility] METABOLIC FILTRATION /2021 No comment entered. WSTRN PANEL RATE/1.73 Ordering Prov ider: VIRA CRUZ [place] (fasting) SQ Report Releas ed Date/Time: Nov 18, 2021 08:44 PM TS HCS M.PREDICTED Reporting L ab: [facility] [place] [facility] [VOLUME [address] [facility] [address] RATE/AREA] Performing L ab: [facility] [place] [facility] IN SERUM, [address] [facility] [address] PLASMA OR BLOOD BY CREATININE- BASED FORMULA (CKD-EPI) CBC AND LEUKOCYTES 7.38 4.50 - 10 Specimen Type : BLOOD [facility] DIFF [#/VOLUME] 11.00 No comment en tered. WSTRN (AUTO) IN BLOOD BY Ordering Pr ovider: VIRA CRUZ JAWED [place] AUTOMATED Report Releas ed Date/Time: Nov 18, 2021 08:44 PM TS HCS COUNT Reporting Lab: [facility] [place] [facility] [address] [facility] [address] Performing Lab: [facility] [place] [facility] [address] [facility] [address] CBC AND ERYTHROCYTE 5.07 4.23 - 10 Specimen Typ e: BLOOD [facility] DIFF S 5.66 No comment enter ed. WSTRN (AUTO) [#/VOLUME] Ordering Pro vider: VIRA CRUZ JAWED [place] IN BLOOD BY Report Rele ased Date/Time: Nov 18, 2021 08:44 PM TS [facility] AUTOMATED Reporting Lab : [facility] [place] [facility] COUNT [address] [facility] [address] Performing Lab: [facility] [place] [facility] [address] [facility] [address] CBC AND HEMOGLOBIN 15.8 12.8 - 17 11/19 Specimen Ty pe: BLOOD [facility] DIFF [MASS/VOLUM /2021 No comment e ntered. [facility] (AUTO) E] IN BLOOD Ordering Pr ovider: VIRA CRUZ JAWED [place] Report Released Date/Time: Nov 18, 2021 08:44 PM TS [facility] Reporting Lab: [facility] [place] [facility] [address] [facility] [address] Performing Lab: [facility] [place] [facility] [address] [facility] [address] CBC AND HEMATOCRIT 46.6 39.2 - 11/19 Specimen Type : BLOOD [facility] DIFF [VOLUME 50.4 No comment enter ed. [facility] (AUTO) FRACTION] Ordering Prov ider: VIRA CRUZ [place] OF BLOOD BY Report Rele ased Date/Time: Nov 18, 2021 08:44 PM TS [facility] AUTOMATED Reporting Lab : [facility] [place] [facility] COUNT [address] [facility] [address] Performing Lab: [facility] [place] [facility] [address] [facility] [address] CBC AND MCV 91.9 82 - 99 11/19 Specimen Type: B LOOD [facility] DIFF [ENTITIC No comment ente red. [facility] (AUTO) VOLUME] BY Ordering Pro vider: VIRA CRUZ JAWED [place] AUTOMATED Report Releas ed Date/Time: Nov 18, 2021 08:44 PM [facility] COUNT Reporting Lab: [facility] [place] [facility] [address] [facility] [address] Performing Lab: [facility] [place] [facility] [address] [facility] [address] CBC AND MCHC 33.9 30.8 - 10 Specimen Type: B LOOD [facility] DIFF [MASS/VOLUM 35.1 No comment e ntered. WSTRN (AUTO) E] BY Ordering Provid er: VIRA CRUZ JAWED [place] AUTOMATED Report Releas ed Date/Time: Nov 18, 2021 08:44 PM [facility] COUNT Reporting Lab: [facility] [place] [facility] [address] [facility] [address] Performing Lab: [facility] [place] [facility] [address] [facility] [address] CBC AND PLATELETS 179 140 - 360 11/19 Specimen Typ e: BLOOD [facility] DIFF [#/VOLUME] No comment en tered. WSTRN (AUTO) IN BLOOD BY Ordering Pr ovider: VIRA CRUZ JAWED [place] AUTOMATED Report Releas ed Date/Time: Nov 18, 2021 08:44 PM [facility] COUNT Reporting Lab: [facility] [place] [facility] [address] [facility] [address] Performing Lab: [facility] [place] [facility] [address] [facility] [address] CBC AND ERYTHROCYTE 12.2 12.0 - 11/19 Specimen Typ e: BLOOD [facility] DIFF DISTRIBUTIO 16.0 No comment e ntered. WSTRN (AUTO) N WIDTH Ordering Provid er: VIRA CRUZ [place] [RATIO] BY Report Relea sed Date/Time: Nov 18, 2021 08:44 PM TS [facility] AUTOMATED Reporting Lab : [facility] [place] [facility] COUNT [address] [facility] [address] Performing Lab: [facility] [place] [facility] [address] [facility] [address] CBC AND MONOCYTES 0.60 0.30 - 10/06 Specimen Type: BLOOD [facility] DIFF [#/VOLUME] 1.10 No comment en tered. WSTRN (AUTO) IN BLOOD BY Ordering Pr ovider: VIRA CRUZ JAWED [place] AUTOMATED Report Releas ed Date/Time: Nov 18, 2021 08:44 PM TS [facility] COUNT Reporting Lab: [facility] [place] [facility] [address] [facility] [address] Performing Lab: [facility] [place] [facility] [address] [facility] [address] CBC AND MCH 31.2 26.2 - 10 Specimen Type: B LOOD [facility] DIFF [ENTITIC 32.6 /2021 No comment ente red. WSTRN (AUTO) MASS] BY Ordering Provi loco: AHMED,MOHAMMED JAWED [place] AUTOMATED Report Releas ed Date/Time: Nov 18, 2021 08:44 PM TS [facility] COUNT Reporting Lab: [facility] [place] [facility] [address] [facility] [address] Performing Lab: [facility] [place] [facility] [address] [facility] [address] CBC AND NEUTROPHILS 66.0 11/19 Specimen Typ e: BLOOD [facility] DIFF / No comment enter ed. WSTRN (AUTO) LEUKOCYTES Ordering Pro vider: AHMED,MOHAMMED JAWED [place] IN BLOOD BY Report Rele ased Date/Time: Nov 18, 2021 08:44 PM TS [facility] AUTOMATED Reporting Lab : [facility] [place] [facility] COUNT [address] [facility] [address] Performing Lab: [facility] [place] [facility] [address] [facility] [address] CBC AND LYMPHOCYTES 23.7 11/19 Specimen Typ e: BLOOD [facility] DIFF / No comment enter ed. WSTRN (AUTO) LEUKOCYTES Ordering Pro vider: AHMED,MOHAMMED JAWED [place] IN BLOOD BY Report Rele ased Date/Time: Nov 18, 2021 08:44 PM TS [facility] AUTOMATED Reporting Lab : [facility] [place] [facility] COUNT [address] [facility] [address] Performing Lab: [facility] [place] [facility] [address] [facility] [address] CBC AND MONOCYTES/1 8.1 11/19 Specimen Typ e: BLOOD [facility] DIFF No comment enter ed. WSTRN (AUTO) LEUKOCYTES Ordering Pro vider: AHMED,MOHAMMED JAWED [place] IN BLOOD BY Report Rele ased Date/Time: Nov 18, 2021 08:44 PM TS [facility] AUTOMATED Reporting Lab : [facility] [place] [facility] COUNT [address] [facility] [address] Performing Lab: [facility] [place] [facility] [address] [facility] [address] CBC AND EOSINOPHILS 1.4 10 Specimen Typ e: BLOOD [facility] DIFF /100 /2021 No comment enter ed. WSTRN (AUTO) LEUKOCYTES Ordering Pro vider: VIRA CRUZ JAWED [place] IN BLOOD BY Report Rele ased Date/Time: Nov 18, 2021 08:44 PM TS [facility] AUTOMATED Reporting Lab : [facility] [place] [facility] COUNT [address] [facility] [address] Performing Lab: [facility] [place] [facility] [address] [facility] [address] CBC AND BASOPHILS/1 0.7 11/19 Specimen Typ e: BLOOD [facility] DIFF 00 No comment enter ed. WSTRN (AUTO) LEUKOCYTES Ordering Pro vider: VIRA CRUZ JAWED [place] IN BLOOD BY Report Rele ased Date/Time: Nov 18, 2021 08:44 PM TS [facility] AUTOMATED Reporting Lab : [facility] [place] [facility] COUNT [address] [facility] [address] Performing Lab: [facility] [place] [facility] [address] [facility] [address] CBC AND NEUTROPHILS 4.87 2.20 - 11/19 Specimen Typ e: BLOOD [facility] DIFF [#/VOLUME] 7.60 /2021 No comment en tered. WSTRN (AUTO) IN BLOOD BY Ordering Pr ovider: VIRA CRUZ JAWED [place] AUTOMATED Report Releas ed Date/Time: Nov 18, 2021 08:44 PM TS [facility] COUNT Reporting Lab: [facility] [place] [facility] [address] [facility] [address] Performing Lab: [facility] [place] [facility] [address] [facility] [address] CBC AND LYMPHOCYTES 1.75 1.00 - 10 Specimen Typ e: BLOOD [facility] DIFF [#/VOLUME] 3.20 /2021 No comment en tered. WSTRN (AUTO) IN BLOOD BY Ordering Pr ovider: AHMED,MOHAMMED JAWED [place] AUTOMATED Report Releas ed Date/Time: Nov 18, 2021 08:44 PM TS [facility] COUNT Reporting Lab: [facility] [place] [facility] [address] [facility] [address] Performing Lab: [facility] [place] [facility] [address] [facility] [address] CBC AND EOSINOPHILS 0.10 0.03 - 11/19 Specimen Typ e: BLOOD [facility] DIFF [#/VOLUME] 0.44 /2021 No comment en tered. WSTRN (AUTO) IN BLOOD BY Ordering Pr ovider: VIRA CRUZ JAWED [place] AUTOMATED Report Releas ed Date/Time: Nov 18, 2021 08:44 PM TS [facility] COUNT Reporting Lab: [facility] [place] [facility] [address] [facility] [address] Performing Lab: [facility] [place] [facility] [address] [place] [address] CBC AND BASOPHILS 0.05 0.01 - 11/19 Specimen Type: BLOOD [facility] DIFF [#/VOLUME] 0.13 No comment en tered. WSTRN (AUTO) IN BLOOD BY Ordering Pr ovider: VIRA CRUZ JAWED [place] AUTOMATED Report Releas ed Date/Time: Nov 18, 2021 08:44 PM TS [facility] COUNT Reporting Lab: [facility] [place] [facility] [address] [facility] [address] Performing Lab: [facility] [place] [facility] [address] [place] [address] CBC AND IMMATURE 0.1 11/19 Specimen Type: BLOOD [facility] DIFF GRANULOCYTE No comment e ntered. WSTRN (AUTO) S/100 Ordering Provid er: VIRA CRUZ [place] LEUKOCYTES Report Releayaz sed Date/Time: Nov 18, 2021 08:44 PM TS [facility] IN BLOOD BY Reporting L ab: [facility] [place] [facility] AUTOMATED [address] [facility] [address] COUNT Performing Lab: [facility] [place] [facility] [address] [facility] [address] CBC AND IMMATURE 0.01 0.00 - 10/06 Specimen Type: BLOOD [facility] DIFF GRANULOCYTE 0.06 /2021 No comment e ntered. WSTRN (AUTO) S Ordering Provid er: VIRA CRUZ [place] [#/VOLUME] Report Relea sed Date/Time: Nov 18, 2021 08:44 PM TS [facility] IN BLOOD Reporting Lab: [facility] [place] [address] [address] Performing Lab: [facility] [place] [address] [address] LIPID CHOLESTEROL 157 7 - 199 04/29 Specimen Typ e: SERUM [facility] PANEL [MASS/VOLUM /2021 No comment e ntered. WSTRN FASTING E] IN SERUM Ordering Pr ovider: VIRA CRUZ JAWED [place] OR PLASMA Report Releas ed Date/Time: Apr 17, 2021 10:45 AM TS [facility]CS Reporting Lab: [facility] [place] [address] [address] Performing Lab: [facility] [place] [address] [address] LIPID TRIGLYCERID 49 0 - 150 04/29 Specimen Typ e: SERUM [facility] PANEL E No comment enter ed. WSTRN FASTING [MASS/VOLUM Ordering Pr ovider: VIRA CRUZ JAWED [place] E] IN SERUM Report Rele ased Date/Time: Apr 17, 2021 10:45 AM TS [facility]CS OR PLASMA Reporting Lab : [facility] [place] [address] [address] Performing Lab: [facility] [place] [address] [address] LIPID CHOLESTEROL 105 0 - 129 04/29 Specimen Typ e: SERUM [facility] PANEL IN /2021 No comment enter ed. WSTRN FASTING [MASS/VOLUM Ordering Pr ovider: VIRA CRUZ JAWED [place] E] IN SERUM Report Rele ased Date/Time: Apr 17, 2021 10:45 AM TS [facility]CS OR PLASMA Reporting Lab : [facility] [place] [facility] BY [address] [place] [address] CALCULATION Performing Lab: [facility] [place] [facility] [address] [facility] [address] LIPID CHOLESTEROL 3.7 04/29 Specimen Typ e: SERUM [facility] PANEL .TOTAL/CHOL /2021 No comment e ntered. WSTRN FASTING ESTEROL IN Ordering Pro vider: VIRA CRUZ JAWED [place] HDL [MASS Report Releas ed Date/Time: Apr 17, 2021 10:45 AM TS [facility]CS RATIO] IN Reporting Lab : [facility] [place] [facility] SERUM OR [address] [facility] [address] PLASMA Performing Lab: [facility] [place] [facility] [address] [facility] [address] LIPID CHOLESTEROL 42 40 - 60 04/29 Specimen Typ e: SERUM [facility] PANEL IN HDL /2021 No comment enter ed. WSTRN FASTING [MASS/VOLUM Ordering Pr ovider: VIRA CRUZ JAWED [place] E] IN SERUM Report Rele ased Date/Time: Apr 17, 2021 10:45 AM TS [facility]CS OR PLASMA Reporting Lab : [facility] [place] [facility] [address] [facility] [address] Performing Lab: [facility] [place] [facility] [address] [facility] [address] BASIC UREA 15 7 - 25 04/29 Specimen Type: S MARI [facility] METABOLIC NITROGEN /2021 No comment en tered. WSTRN PANEL [MASS/VOLUM Ordering Pr ovider: VIRA CRUZ JAWED [place] (fasting) E] IN SERUM Report Re leased Date/Time: Apr 17, 2021 10:45 AM TS HCS OR PLASMA Reporting Lab : [facility] [place] [facility] [address] [facility] [address] Performing Lab: [facility] [place] [facility] [address] [facility] [address] BASIC GLUCOSE 110 65 - 100 04/29 H Specimen Type: SERUM [facility] METABOLIC [MASS/VOLUM /2021 No comment entered. WSTRN PANEL E] IN SERUM Ordering Pr ovider: VIRA CRUZ JAWED [place] (fasting) OR PLASMA Report Rele ased Date/Time: Apr 17, 2021 10:45 AM HCS Reporting Lab: [facility] [place] [facility] [address] [facility] [address] Performing Lab: [facility] [place] [facility] [address] [facility] [address] BASIC SODIUM 141 135 - 145 04/29 Specimen Type: SERUM [facility] METABOLIC [MOLES/VOLU /2021 No comment entered. WSTRN PANEL ME] IN Ordering Provid er: HIEN CRUZED JAWED [place] (fasting) SERUM OR Report Relea sed Date/Time: Apr 17, 2021 10:45 AM TS [facility] PLASMA Reporting Lab: [facility] [place] [address] [address] [facility]: [facility] [address] [address] BASIC POTASSIUM 4.4 3.5 - 5.0 04/29 Specimen Typ e: SERUM [facility] METABOLIC [MOLES/VOLU /2021 No comment entered. WSTRN PANEL ME] IN Ordering Provid er: VIRA CRUZ JAWED [place] (fasting) SERUM OR Report Relea sed Date/Time: Apr 17, 2021 10:45 AM [facility] PLASMA Reporting Lab: [facility] [place] [facility] [address] [facility] [address] Performing Lab: [facility] [place] [address] [address] BASIC CHLORIDE 104 100 - 110 04/29 Specimen Type : SERUM [facility] METABOLIC [MOLES/VOLU /2021 No comment entered. WSTRN PANEL ME] IN Ordering Provid er: VIRA CRUZ JAWED [place] (fasting) SERUM OR Report Relea sed Date/Time: Apr 17, 2021 10:45 AM TS [facility] PLASMA Reporting Lab: [facility] [place] [address] [address] [facility]: [facility] [address] [address] BASIC CARBON 29 20 - 30 04/29 Specimen Type: S MARI [facility] METABOLIC DIOXIDE, No comment en tered. WSTRN PANEL TOTAL Ordering Provid er: DK CRUZSOILASANTHOSH JAWED [place] (fasting) [MOLES/VOLU Report Re leased Date/Time: Apr 17, 2021 10:45 AM TS [facility] ME] IN Reporting Lab: [facility] [place] [facility] SERUM OR [address] [facility] [address] PLASMA Performing Lab: [facility] [place] [address] [address] BASIC CREATININE 0.93 0.50 - 04/29 Specimen Type : SERUM [facility] METABOLIC [MASS/VOLUM 1.40 /2021 No comment entered. WSTRN PANEL E] IN SERUM Ordering Pr ovider: DK CRUZSOILASANTHOSH JAWED [place] (fasting) OR PLASMA Report Rele ased Date/Time: Apr 17, 2021 10:45 AM [facility] Reporting Lab: [facility] [place] [address] [address] Performing Lab: [facility] [place] [address] [address] BASIC GLOMERULAR 80 60 04/29 Specimen Type : SERUM [facility] METABOLIC FILTRATION /2021 No comment entered. WSTRN PANEL RATE/1.73 Ordering Prov ider: DK CRUZSOILASANTHOSH JAWED [place] (fasting) SQ Report Releas ed Date/Time: Apr 17, 2021 10:45 AM [facility] M.PREDICTED Reporting L ab: [facility] [place] [facility] [VOLUME [address] [facility] [address] RATE/AREA] Performing L ab: [facility] [place] [facility] IN SERUM OR [address] [facility] [address] PLASMA BY CREATININE- BASED FORMULA (MDRD) LIVER PROTEIN 6.3 6.0 - 8.3 04/29 Specimen Type: SERUM [facility] FUNCTION [MASS/VOLUM /2021 No comment entered. WSTRN E] IN SERUM Ordering Pr ovider: ANTHONYDKSOILASANTHOSH JAWED [place] OR PLASMA Report Releas ed Date/Time: Apr 17, 2021 10:45 AM TS [facility] Reporting Lab: [facility] [place] [facility] [address] [facility] [address] Performing Lab: [facility] [place] [facility] [address] [facility] [address] LIVER ALBUMIN 3.8 3.5 - 5.0 04/29 Specimen Type: SERUM [facility] FUNCTION [MASS/VOLUM /2021 No comment entered. WSTRN E] IN SERUM Ordering Pr ovider: VIRA CRUZ JAWED [place] OR PLASMA Report Releas ed Date/Time: Apr 17, 2021 10:45 AM TS [facility] Reporting Lab: [facility] [place] [facility] [address] [facility] [address] Performing Lab: [facility] [place] [facility] [address] [facility] [address] LIVER ALKALINE 86 40 - 150 04/29 Specimen Type: SERUM [facility] FUNCTION PHOSPHATASE No comment entered. WSTRN [ENZYMATIC Ordering Pro vider: VIRA CRUZ JAWED [place] ACTIVITY/VO Report Rele ased Date/Time: Apr 17, 2021 10:45 AM TS [facility]CS LUME] IN Reporting Lab: [facility] [place] [facility] SERUM OR [address] [facility] [address] PLASMA Performing Lab: [facility] [place] [facility] [address] [facility] [address] LIVER ASPARTATE 15 5 - 34 04/29 Specimen Type: SERUM [facility] FUNCTION AMINOTRANSF No comment entered. WSTRN ERASE Ordering Provid er: VIRA CRUZ JAWED [place] [ENZYMATIC Report Relea sed Date/Time: Apr 17, 2021 10:45 AM TS HCS ACTIVITY/VO Reporting L ab: [facility] [place] [facility] [place]] IN [address] [facility] [address] SERUM OR Performing Lab : [facility] [place] [facility] PLASMA [address] [facility] [address] LIVER ALANINE 24 6 - 55 04/29 Specimen Type: S MARI [facility] FUNCTION AMINOTRANSF No comment entered. WSTRN ERASE Ordering Provid er: VIRA CRUZ JAWED [place] [ENZYMATIC Report Relea sed Date/Time: Apr 17, 2021 10:45 AM TS [facility]CS ACTIVITY/VO Reporting L ab: [facility] [place] [facility] [place]] [place] [address] [facility] [address] SERUM OR Performing Lab : [facility] [place] [facility] PLASMA [address] [facility] [address] LIVER BILIRUBIN.T 0.7 0.2 - 1.2 04/29 Specimen T ype: SERUM [facility] FUNCTION OTA No comment ente red. WSTRN [MASS/VOLUM Ordering Pr ovider: VIRA CRUZ JAWED [place] E] IN SERUM Report Rele ased Date/Time: Apr 17, 2021 10:45 AM TS HCS OR PLASMA Reporting Lab : [facility] [place] [facility] [address] [facility] [address] Performing Lab: [facility] [place] [facility] [address] [facility] [address] Vital Signs Combined list of inpatient and outpatient Vital Signs from Department of Defense and Veterans Affairs, ranging from 12 months to all on record, depending upon the facility. Vital Sign Value Date Comments Source SYSTOLIC BLOOD PRESSURE 130 11/19/2021 [facility] [place] [facility] DIASTOLIC BLOOD PRESSURE 77 11/19/2021 [facility] [place] [facility] PULSE OXIMETRY 95% 11/19/2021 [facility] [place] [facility] WEIGHT 234.9 11/19/2021 [facility] [place] [facility] BMI 33kg/m2 11/19/2021 [facility] [place] [facility] PAIN 0 11/19/2021 [facility] [place] [facility] TEMPERATURE 97.5 11/19/2021 [facility] [place] [facility] PULSE 103 11/19/2021 [facility] [place] [facility] RESPIRATION 16 11/19/2021 [facility] [place] [facility] SYSTOLIC BLOOD PRESSURE 145 05/04/2021 [facility] 08[facility] [place] [facility] DIASTOLIC BLOOD PRESSURE 82 05/04/2021 [facility] [place] [facility] PULSE OXIMETRY 95% 05/04/2021 [facility] [place] [facility] WEIGHT 232.2 05/04/2021 [facility] [place] [facility] BMI 32kg/m2 05/04/2021 [facility] [place] [facility] PAIN 0 05/04/2021 [facility] [place] [facility] TEMPERATURE 96.2 05/04/2021 [facility] 08[facility] [place] [facility] PULSE 85 05/04/2021 [facility] 08[facility] [place] [facility] RESPIRATION 16 05/04/2021 [facility] [place] [facility] Encounters Combined list of: 1) Encounters from Department of Veterans Affairs facilities going back up to the last 18 months. 2) Encounters from the Department of Defense facilities going back up to 280 months. Location Location Encounter Encounter Reason Attending ADM DC Stat us Disposition Source Details Type Number For Provider Date Date Visit Outpatient [id number] 08/08 [id number] [place] [facility] Outpatient [id number] 08/19 [facility] En[facility] [id number] [facility] [place] [facility] Outpatient [id number] 08/22 [facility] Encounter [id number] /2021 [facility] [place] [facility] Outpatient [id number] 09/02 [facility] En[facility] [id number] [facility] [place] [facility] Outpatient [id number] 09/12 [facility] En[facility] [id number] [facility] [place] [facility] Outpatient [id number] 10/15 [facility] En[facility] [id number] [facility] [place] [facility] Outpatient [id number] 10/22 [facility] En[facility] [id number] [facility] [place] [facility] [facility] OFF[facility] O/P [id number] Diagnos GORDON CRUZ 10/29 [facility] EST LOW [id number] is: MMED JAWED CN TRL 20-29 MIN ICD-10- [facility] CM [place] E83.118 SETS Other HCS hemochr omatosi s
w ith Provide r Comment s: Hemochr omatosi s (SCT [id number] 06) DERMATOLOG [id number] Diagnos CANDACE VARGAS 11/28 [facility] ICAL [id number] is: ICA A [facility] PROCEDURE ICD-10- [facility] CM [place] Z13.89 SETS Encount HCS er for screeni ng for other disorde r
w ith Provide r Comment s: Encount er for Screeni ng for other Disorde r Outpatient [id number] Diagnos Rajwinder LANDEROS 12/03 [facility] Encounter [id number] is: VICENTE [facility] ICD-10- [facility] CM [place] D22.9 SETS [facility] [facility] ytic nevi, unspeci fied
with Provide r Comment s: [place] ytic Nevi, unspeci fied EYE Diagnos LUDWIG WALTERS 12/22 [facility] EXAM&TX [id number] is: ANH [facility] ESTAB PT ICD-10- WSTRN 1/>VST CM [place] H40.013 SETS Open HCS angle with borderl ine finding s, low risk, bilater al
with Provide r Comment s: [place] a Suspect ,Low Risk,Bi lateral OFFICE O/P [id number] Diagnos LUDWIG WALTERS 12/22 [facility] EST [id number] is: ANH [facility] MINIMAL ICD-10- [facility] PROB CM [place] H40.013 SETS Open HCS angle with borderl ine finding s, low risk, bilater al
with Provide r Comment s: [place] a Suspect ,Low Risk,Bi lateral Outpatient [id number] 12/22 [facility] Encounter [id number] [facility] [place] [facility] 28940-1/09 [facility] En[facility] [id number] [facility] [place] [facility] [id number] 12/25 [facility] Encounter [id number] [facility] [place] [facility] [id number] 01/14 [facility] Encounter [id number] /2021 [facility] [place] [id number] Diagnos KIMO,WILL 01/14 [facility] DIG [id number] is: KEY [facility] ASSMT&MGMT ICD-10- GALINDO WSTR[facility] 5-10 CM [place] J44.9 SETS Chronic HCS obstruc tive pulmona ry disease , unspeci fied
with Provide r Comment s: Chronic Obstruc tive Pulmona ry Disease , unspeci fied OFFICE O/P [id number] Diagnos MYRNA RODAS 01/17 [facility] EST [id number] is: LLE L [facility] MINIMAL ICD-10- [facility] PROB CM Z23 [place] Encount SETS er for HCS immuniz ation<b r/>with Provide r Comment s: Encount er for Immuniz ation Outpatient [id number] 02/27 [facility] Encounter [id number] /2022 [facility] [place] [facility] [id number] 04/24 [facility] Encounter [id number] /2022 [facility] [place] [facility] [facility] [place] [id number] 04/29 [facility] Encounter [id number] /2022 [facility] [place] [facility] [facility] OFF[place] O/P [id number] Diagnos GORDON CRUZ 05/04 [facility] EST MOD [id number] is: MMED JAWED CN TRL 30-39 MIN ICD-10- [facility] CM Z23 [place] Encount SETS er for HCS immuniz ation<b r/>with Provide r Comment s: Encount er for immuniz ation (ICD-10 -CM Z23.) Outpatient [id number] 10/22 [facility] Encounter [id number] /2022 [facility] [place] [facility] [facility] OFF[place] O/P [id number] Diagnos STROGANOW, 10/23 [facility] EST [id number] is: LIZETH A [facility] MINIMAL ICD-10- [facility] PROB CM [place] Z71.89 SETS 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<br/ >with 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
with Provide r Comment s: [facility] emphyse ma (SCT [id number]) Outpatient [id number] 12/09 [facility] En[facility] [id number] /2022 [facility] [place] [facility] HC PRO 16065-9.63 Diagnos STROGAN, 12/09 V A PHONE CALL [id number] is: LIZETH A CNTRL 11-20 MIN ICD-10- WSTRN CM [place] Z71.9 SETS [facility] HCS ing, unspeci fied
with Provide r Comment s: [employer] ing, unspeci fied Social History Combined list of available smoking, tobacco, and other social [facility]. Social History Response Date Comment Source Type Tobacco smoking VA-TOBACCO USER 10/23/2021 [place] [facility] W[facility] status NHIS EVERY DAY [place] [facility] History of VA-TOBACCO DOESNT 10/23/2021 [facility] tobacco use USE WI 30 MIN [place] [facility] History of VA-TOBACCO USER 10/29/2020 [facility] WST RN tobacco use EVERY DAY [place] [facility] History of VA-TOBACCO FORMER 10/10/2019 [facility] W STRN tobacco use USER [place] [facility] History of VA-TOBACCO USE 10/26/2018 [facility] WSTR N tobacco use 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 NO [place] [facility] History of CURRENT SMOKER 08/04/2017 [facility] WSTR N tobacco use [place] [facility] History of QUIT TOBACCO USE IN 01/31/2017 31 days [place] WSTRN tobacco use PAST YEAR [place] [facility] History of CURRENT SMOKER 01/26/2016 [facility] WSTR N tobacco use [place] [facility] History of QUIT TOBACCO USE IN 02/20/2015 [facility] WSTRN tobacco use PAST YEAR [place] [facility] History of CURRENT SMOKER 06/17/2014 [facility] and on [place] [facility] smoker -cigarette s History of CURRENT SMOKER 09/14/2011 less than a pack [facility] WSTRN tobacco use a day [place] [facility] History of CURRENT SMOKER 03/09/2010 1 ppd [facility] WSTR N tobacco use [place] [facility] History of V1-PT DECLINES 09/29/2009 [facility] WSTR N tobacco use TOBACCO CESSATION [place] [facility] History of CURRENT [facility]MO[facility]ER [facility]/29[facility] [place] [facility] History of CURRENT SMOKER 03/17/2005 [facility] [facility] tobacco use [place] [facility] Plan of Care List of future care activities from Department of Veterans Affairs facilities. Additional future care activities may be listed in the Assessment and Plan section. Date/Time Care Activity Care Activity Detail Facility 02/23/2022 AMBULATORY - MEDICINE AMBULATORY - MEDICINE [facility] [place] [facility]
--- OUTSIDE RECORDS SUMMARY | 2021-12-29 17:14 | XMS_ITS ---
:1950 Author Organization [facility] rs Address [address] [place] [id number] Support Name Relationship Address Phone MARIAN CABRERA Unavailable [address] EMILIE MENDES [phone] MARIAN CABRERA Unavailable [address] [place] [address] Insurance Providers: All historical and current Section Date Range: From patient's date of to the date document was created.This section includes the names of all active insurance providers for the patient. Insurance Type of Plan Start of End of Group Member Insurance Policy P atient's Provider Coverage Name Policy Policy Number ID Provider's Ackerman's Relationship Coverage Coverage Telephone Name to Policy Number Ackerman MEDICARE MEDICARE PART Jul 15, PART A [id number] BANG PATIENT (WNR) (M) A 2013 90A 4 BRAD PALACIOS MEDICARE MEDICARE PART Jul 15, PART B [id number] BANG PATIENT (WNR) (M) B [id number] 4 BRAD PALACIOS Selected Encounter This section includes the information on record at [facility] for the Encounter. Date/Time Encounter Type Encounter Description Reason Provider Source Dec 09, 2021 08:31 Outpatient Encounter ADMIN ANAID ACTIVMADELINE AM (MASNONCT) IHE Encounter Template Text not used by [facility] Plan of Treatment: Future Appointments (+ 6 months) and Future Tests (+/- 45 days) The Plan of Treatment section includes future care activities for the patient from all [facility] treatmentfacilities. This section includes future appointments and future orders which are active, pending orscheduled.Future Appointments This section includes appointments that were scheduled to occur 6 months from the date of the Encounter, up to a maximum of 20 appointments. The data comes from all [place] treatment facilities. Appointment Date/Time Appointment Type Appointment Facili ty Name Dec 24, 2021 01:00 PM AMBULATORY - NONE [facility] [place] [facility] Feb 23, 2022 08:30 AM AMBULATORY - MEDICINE [facility] [place] [facility] May 27, 2022 08:30 AM AMBULATORY - MEDICINE [facility] [place] [facility] Lab Results: +/- 30 days of the encounter This section includes the Chemistry and Hematology Lab Results on record with HI for the patient. Radiology Reports and Pathology Reports are provided separately, in subsequent sections.Lab Results This section contains the Chemistry/Hematology Results that were resulted 30 days before or 30 daysafter the date of the Encounter. Date/Time Source Result Type Result - Unit Interpretation Reference Range Comment Nov 19, 2021 [facility] HEMOGLOBIN A1C Specimen Type: BLOOD 09:20 AM [facility] PANEL Comment: Values obtained from A1C measurements can vary. For typical A1C assays, a reported value of 7.0 could actually be between 6.72 and 7.28 if measured by a reference method. A reported value of 9 .0 could actuall y be between 8.73 and 9.27. Ref: http://www.ngsp.org/CAPdata.asp Ordering Provid er: VIRA CRUZ Report Released Date/Time: Nov 18, 2021 08:44 PM Reporting Lab: [facility] [place] [facility] [address] [facility] [address] Performing Lab: [facility] [place] [facility] [address] [facility] [address] HEMOGLOBIN A1C 5.8 H 4.0-5.6 Nov 19, 2021 09:20 AM [facility] [place] FERRITIN Specimen Type: SERUM [facility] No comment enter ed. Ordering Provid er: VIRA CRUZ Report Released Date/Time: Nov 18, 2021 08:49 PM Reporting Lab: [facility] [place] [facility] [address] [facility] [address] Performing Lab: [facility] [place] [facility] [address] [facility] [address] FERRITIN 299.9 20-300 Nov 19, 2021 09:20 [facility] LIVER FUNCTION Specimen Typ e: SERUM AM [place] [facility] No comment enter ed. Ordering Provid er: VIRA CRUZ Report Released Date/Time: Nov 18, 2021 08:44 PM Reporting Lab: [facility] [place] [facility] [address] [facility] [address] Performing Lab: [facility] [place] [facility] [address] [facility] [address] PROTEIN,TOTAL 6.4 6.0-8.3 ALBUMIN 3.9 3.5-5.0 ALKALINE PHOSPHATASE 86 40-150 AST 20 5-34 ALT 31 <6-55 BILIRUBIN, TOTAL 0.9 0.2-1.2 Nov 19, 2021 [facility] BASIC METABOLIC Specimen Type: SERUM 09:20 AM [place] [facility] PANEL (fasting) No comment enter ed. Ordering Provid er: VIRA CRUZ Report Released Date/Time: Nov 18, 2021 08:44 PM Reporting Lab: [facility] [place] [facility] [address] [facility] [address] Performing Lab: [facility] [place] [facility] [address] [facility] [address] UREA NITROGEN 18 7-25 GLUCOSE 117 H 65-100 SODIUM 140 135-145 POTASSIUM 4.5 3.5-5.0 CHLORIDE 103 100-110 CO2 27 20-30 CREATININE, Serum 0.91 0.50-1.40 eGFR(CKD-EPI 2020) 89 >60 Nov 19, 2021 [facility] LIPID PANEL FASTING Specimen Ty pe: SERUM 09:20 AM [place] [facility] No comment enter ed. Ordering Provid er: VIRA CRUZ Report Released Date/Time: Nov 18, 2021 08:44 PM Reporting Lab: [facility] [place] [facility] [address] [facility] [address] Performing Lab: [facility] [place] [facility] [address] [facility] [address] CHOLESTEROL 158 <7-199 TRIGLYCERIDE 104 0-150 LDL calculated 95 0-129 CHOL/HDL 3.8 HDL CHOLESTEROL 42 40-60 Nov 19, 2021 09:20 [facility] IRON & TIBC PANEL Specimen T ype: SERUM AM [place] [facility] No comment enter ed. Ordering Provid er: VIRA CRUZ Report Released Date/Time: Nov 18, 2021 08:49 PM Reporting Lab: [facility] [place] [facility] [address] [facility] [address] Performing Lab: [facility] [place] [facility] [address] [facility] [address] TIBC 246 204-475 IRON 248 H 40-160 Transferrin Saturation 101.0 H 20.0-50 .0 Nov 19, 2021 09:20 [facility] CBC AND DIFF Specimen Typ e: BLOOD AM [facility] (AUTO[facility] No comment enter ed. Ordering Provid er: VIRA CRUZ Report Released Date/Time: Nov 18, 2021 08:44 PM Reporting Lab: [facility] [place] [facility] [address] [facility] [address] Performing Lab: [facility] [address] [facility] [address] WBC 7.38 4.50-11.00 RBC 5.07 4.23-5.66 HGB 15.8 12.8-17 HCT 46.6 39.2-50.4 MCV 91.9 82-99 MCHC 33.9 30.8-35.1 PLT 179 140-360 RDW-CV 12.2 12.0-16.0 Pleasants, Abs 0.60 0.30-1.10 MCH 31.2 26.2-32.6 Neut % 66.0 Lymph % 23.7 Pleasants % 8.1 Eos % 1.4 Baso % 0.7 Neut, Abs 4.87 2.20-7.60 Lymph, Abs 1.75 1.00-3.20 Eos, Abs 0.10 0.03-0.44 Baso, Abs 0.05 0.01-0.13 Immature Gran % 0.1 Immature Gran, Abs 0.01 0.00-0.06 Social History: Smoking Status (Most current) and Tobacco Use (All prior to encounter date) This section includes the most current, and the historical, smoking and tobacco-related health factors from the [facility] facility where the Encounter took place.Current Smoking Status This section includes the most current smoking, or tobacco-related health factor, from the [facility] facility where the Encounter took place. Date/Time Current Smoking Status Comment Facility Oct 23, 2021 08:00 AM VA-TOBACCO USER EVERY DAY [facility] [place] [facility] Tobacco Use History This section includes a history of the smoking, or tobacco- related health factors, that were collected on or before the date of the Encounter. The data comes from the [facility] facility where the Encounter took place. Date/Time Smoking Status/Tobacco Comment Facility Use Oct 23, 2021 08:00 VA-TOBACCO USE 30 YEARS [facility] AM OR MORE [place] [facility] Oct 23, 2021 08:00 VA-TOBACCO USE ADVICE [facility] [place] [facility] Oct 23, 2021 08:00 VA-TOBACCO USE ADMINISTRATION DEAN NO [facility] [place] [facility] Oct 23, 2021 08:00 VA-TOBACCO USE MED NO [facility] [place] [facility] Oct 23, 2021 08:00 VA-TOBACCO USER EVERY DAY [facility] [place] [facility] Oct 29, 2020 10:00 VA-TOBACCO DOESNT USE WI [facility] C [facility] AM 30 MIN WA[place]UP [place] [facility] Oct 29, 2020 10:00 VA-TOBACCO USE 30 YEARS [facility] AM OR MORE [place] [facility] Oct 29, 2020 10:00 VA-TOBACCO USE ADVICE [facility] [place] [facility] Oct 29, 2020 10:00 VA-TOBACCO USE ADMINISTRATION DEAN [facility] AM YES [place] [facility] Oct 29, 2020 10:00 VA-TOBACCO USE MED NOTIFY [facility] [place] PROVIDER [place] [facility] Oct 29, 2020 10:00 VA-TOBACCO USER EVERY DAY [facility] [place] [facility] Oct 10, 2019 11:00 VA-TOBACCO FORMER USER [facility] [place] [facility] Oct 10, 2019 11:00 VA-TOBACCO QUIT < 1 YEAR [facility] [place] [facility] Oct 26, 2018 07:55 VA-TOBACCO USE > 15 LESS VA C NTRL W[facility] AM THAN 30 YEARS [facility] Oct 26, 2018 07:55 VA-TOBACCO USE ADVICE [facility] [place] [facility] Oct 26, 2018 07:55 VA-TOBACCO USE ADMINISTRATION DEAN NO [facility] Oct 26, 2018 07:55 VA-TOBACCO USE MED NO [facility] [place] [facility] Oct 26, 2018 07:55 VA-TOBACCO USE WI 30 MIN VA C N[facility]L [facility] AM OF WAKEUP [facility] Oct 26, 2018 07:55 VA-TOBACCO USER EVERY DAY [facility] Aug 04, 2017 08:53 CURRENT SMOKER [facility] [place] [facility] Aug 04, 2017 08:53 V1-PT DECLINES REF TO [facility] AM TOBACCO CESS [facility] Aug 04, 2017 08:53 V1-PT DECLINES TOBACCO [facility] AM CESSATION MEDS [facility] Aug 04, 2017 08:53 V1-PT THINKING ABOUT QUIT [facility] AM TOBACCO USE [facility] Jan 31, 2017 09:51 QUIT TOBACCO USE IN PAST VA C NTRL W[facility]N AM YEAR 31 days [facility] Jan 26, 2016 08:36 CURRENT SMOKER [facility] [place] [facility] Jan 26, 2016 08:36 V1-PT DECLINES REF TO [facility] AM TOBACCO CESS [facility] Jan 26, 2016 08:36 V1-PT DECLINES TOBACCO [facility] AM CESSATION MEDS [facility] Jan 26, 2016 08:36 V1-PT THINKING ABOUT QUIT [facility] AM TOBACCO USE [facility] Feb 20, 2015 10:25 QUIT TOBACCO USE IN PAST VA C NTRL WSTRN AM YEAR [facility] June 17, 2014 07:37 CURRENT SMOKER [facility] AM Reports being an off and on smo ker -cigarettes [facility] June 17, 2014 07:37 V1-PT DECLINES REF TO [facility] AM TOBACCO CESS [facility] June 17, 2014 07:37 V1-PT DECLINES TOBACCO [facility] AM CESSATION MEDS [place] [facility] June 17, 2014 07:37 V1-PT THINKING ABOUT QUIT [facility] [place] TOBACCO USE [place] [facility] Sep 14, 2011 09:51 CURRENT SMOKER [facility] AM less than a pack a day [place] [facility] Sep 14, 2011 09:51 V1-PT DECLINES REF TO [facility] AM TOBACCO CESS PRGM [place] Sep 14, 2011 09:51 V1-PT DECLINES TOBACCO [facility] AM CESSATION MEDS [place] [facility] Sep 14, 2011 09:51 V1-PT THINKING ABOUT QUIT [facility] AM TOBACCO USE [place] [facility] Mar 09, 2010 09:32 CURRENT SMOKER [facility] AM 1 ppd [place] [facility] Mar 09, 2010 09:32 V1-PT DECLINES TOBACCO [facility] AM CESSATION MEDS [place] [facility] Mar 09, 2010 09:32 V1-PT REF TO NON-VA [facility] AM TOBACCO CESS [facility] [place] Mar 09, 2010 09:32 V1-PT THINKING ABOUT QUIT [facility] AM TOBACCO USE [place] [facility] Sep 29, 2009 02:07 V1-PT DECLINES REF TO [facility] PM TOBACCO CESS [facility] [place] [facility] Sep 29, 2009 02:07 V1-PT DECLINES TOBACCO [facility] PM CESSATION MEDS [place] [facility] Sep 29, 2009 02:07 V1-PT NOT INTERESTED IN [facility] PM QUIT TOBACCO USE [place] [facility] Jan 29, 2009 11:00 CURRENT SMOKER [facility] AM 1 ppd [place] [facility] Jan 29, 2009 11:00 V1-PT DECLINES TOBACCO VA [facility] AM CESSATION MEDS [place] [facility] Jan 29, 2009 11:00 V1-PT READY TO QUIT [facility] AM TOBACCO USE [place] [facility] Mar 17, 2005 08:36 CURRENT SMOKER [facility] [place] [facility] Radiology Reports: +/- 30 days of the encounter Radiology Reports For cases when an order for radiology services may have been completed prior to the date of the Encounter, the report list includes the Radiology Reports that were completed up to 30 days before date of the Encounter. For cases when an order for radiology services may have been completed after the date of the Encounter, the report list also includes the Radiology Reports that were completed up to 30days after date of the Encounter. The data comes from all [place] treatment facilities. Date/Time Radiology Report Provider Source Dec 24, 2021 12:49 CT THORAX W/O CONT: RADIOLOGY,OUTSIDE [facility] PM BRAD CUENCA [id number] -[birth year], [phone] [facility] Ex Date: DEC 24, 2021@12:49 Req Phys: JANETTMARGODKDAVID JAWED Pat Loc: CWM/NO/P ACT 1 (Req'g Loc) Img Loc: NHM/CT Service: Unknown (Case [id number] COMPLETE) CT THORAX W/O CONT (CT Detai led) CPT:70306 Reason for Study: CT chest Clinical History: Smoking and emphysema patient said he has been using albuterol, Wixela, Spiriva on regular basis his last CT sc an was done December 2020 and there was Intervale clearing of previously seen 3 mm right upper lobe nodule. There were other chronic small nodules mild to moderate emphysema recommendati on was to repeat his CT scan in 1 year which is due now I would request CT of the chest Report Status: Verified Date Reported: DEC 25, 2021 Date Verified: DEC 25, 2021 Food Cart Attendant E-Sig: Report: CT THORAX W/O CONT HISTORY: CT chest COMPARISON: Chest CT December 22, 2020 TECHNIQUE: Volumetric CT acquisition through e chest, with axial, coronal and sagittal reformats, was perf ormed at the local [place] facility. 1079 images were received by the [facility] National Teleradiology Program (NTP) for interpretation. RADIATION DOSE (mGy*cm): 110.4 IV CONTRAST: None administered. FINDINGS: Mild to moderate centrilobular and paraseptal e mphysematous changes are noted. There is mild bronchial wall thickening. No focal endotracheal or endobronchial lesions are seen. Areas of minimal parenchymal scarring are noted in the l ungs. A 1-2 mm calcified granuloma is seen in the right lower lobe on image 202 of series 8. No other significant nodules are s een. No infiltrates or mass lesions or pleural fluid collections are seen. There is some mild pleural thickening at the left lung apex. The thyroid gland is intact. No hilar or mediastinal lymphadenopathy is seen. No esophageal lesions are seen. The heart size is normal. Coronary artery calci fication is present. There is no abnormal dilatation of the thoracic aorta. A small low-attenuation area seen in the right lobe of the liver consistent with a cyst. A partially visualized cyst is seen in the left kidney that may have a tiny calcificat ion along its margin. No acute lesions are seen in the upper abdomen Impression: 1. Stable changes of mild/moderate chronic lung disease with a stable 1-2 mm calcified granuloma in the right lower lobe 2. Presence of a partially visualized right renal cyst that may have a small calcification along its margin 3. Recom mend follow-up chest CT as determined by the patient's clinica l history and clinical findings READING PHYSICIAN: Ron Underwood M.D. [phone] 12/25/2021 11:45 [facility] Noquo Teleradiology Program [phone] (For Medical Practitioner Use Only ) Attention Patients / Veterans: If you have ques tions or concerns about these test results, please contact your [facility] provider or primary care team. Primary Diagnostic Code: NO ALERT REQUIRED Primary Interpreting Staff: RADIOLOGY,OUTSIDE SERVICE, Staff Physician / Encounter Notes: All associated encounter notes This section contains the clinical notes associated to the Encounter. Date/Time Encounter Note(s) Provider Source Dec 09, 2021 08:31 AM ADMINISTRATIVE NOTE: MITCHELL FALCON [facility] LOCAL TITLE: CCC: SCHEDULING ADMINISTRATION [facility] STANDARD TITLE: ADMINISTRATIVE NOTE DATE OF NOTE: DEC 09, 2021@08:31:29 ENTRY DATE: DEC 09, 2021@08:41:52 AUTHOR: MITCHELL FALCON EXP COSIGNER: URGENCY: STATUS: COMPLETED Type of call: ADMINISTRATIVE. PCMM Provider Info: LOCAL [facility] CNTRL WSTRN [employer] [facility] ([id number]) PACT: NO PACT 1 (Focus: Primary Care Only) Primary Care Provider: VIRA CRUZ MD PHONE:[phone] Death Claim Clerk: LIZETH LOVE PHONE:[phone] Clinical Associate: YOHANNES LEDEZMA PHONE:[phone] Powder Shoveler: JENN HORAN PHON E:[phone] Clinical POC: Death Claim Clerk LIZETH LOVE PHONE:[phone] Administrative POC: Powder Shoveler HORANJENN PHONE:[phone] *PATIENT called in for BANGBRAD BATSHEVA ([phone]) . Contact Caller Response: ADM CALL RESOLVED Caller Area: *NAPLES Comments: PT WENT TO [facility] ER ON Tuesday12/07/21 FOR AN UPPER RESPIRATORY INFECTION, HOWEVER HE LEFT THE HOSPITAL BEFORE BEIN G SEEN. HE HAD AN EKG , LABS AND XRAYS DONE AND THAT WAS EMAILED YESTERDAY TO PCP. PT S TATES HE HAS THE DISK OF THE CHEST XRAY THEY TOOK. PT IS REQUESTING AN ANTIBI OTIC TO HELP WITH HIS UPPER RESPIRATORY SYMPTOMS. PT DECLINED TRIAGE LINE. NOTE SENT TO RN/GROUNDS MAINTENANCE MANAGER Author: MITCHELL FALCON Evaluation/Management Code: HC PRO PHONE CALL [phone] MIN ([phone]). Starting at: 12/09/2021 @ 8:31:29 AM Ending at: 12/09/2021 @ 8:41:05 AM Length: 9 minutes. Chief Complaint: Not applicable to call. Class Code: Other specified counseling. /es/ MITCHELL EZEKIEL VISN1 CCC AMSA Signed: 12/09/2021 08:41 Receipt Acknowledged By: * AWAITING SIGNATURE * LIZETH LOVE * AWAITING SIGNATURE * YOHANNES LEDEZMA
--- OUTSIDE RECORDS SUMMARY | 2021-12-29 17:15 | XMS_ITS | Encounter Summary ---
:1950 Author Organization [facility] rs Address [address] [place] [id number] Support Name Relationship Address Phone MARIAN CABRERA Unavailable [address] [place] [address] MARIAN CABRERA Unavailable [address] [place] [address] Insurance Providers: All historical and current Section [...] [place] MEDICARE MEDICARE PART Jul 15, PART B [id number] BANG PATIENT (WNR) (M) B 2013 90A 4 BRAD PALACIOS MEDICARE MEDICARE PART Jul 15, PART A [id number] BANG PATIENT (WNR) (M) A 2013A 4 BRAD PALACIOS Selected Encounter This section includes the information on record at [place] for the Encounter. Date/Time Encounter Type Encounter Description Reason Provider Source Oct 22, 2021 09:03 Outpatient Encounter ADMIN ANAID ACTIVMADELINE AM (MASNONCT) IHE Encounter Template Text not used by [place] Plan of Treatment: Future Appointments (+ 6 [...] 20 appointments. The data comes from all [place] treatment facilities. Appointment Date/Time Appointment Type Appointment Facili ty Name Oct 23, 2021 08:00 AM AMBULATORY - MEDICINE [facility] [place] [facility] Oct 26, 2021 01:00 PM AMBULATORY - MEDICINE [facility] [place] [facility] Nov 19, 2021 08:30 AM AMBULATORY - MEDICINE [facility] [place] [facility] Dec 24, 2021 01:00 PM AMBULATORY - NONE [facility] [place] [facility] Feb 23, 2022 08:30 AM AMBULATORY - MEDICINE [facility] [place] [facility] Lab Results: +/- 30 days of the encounter This section includes the Chemistry and Hematology Lab Results on record with [place] for the patient. Radiology Reports and Pathology Reports are provided separately, in subsequent sections.Lab Results This section contains the Chemistry/Hematology Results that were resulted 30 days before or 30 daysafter the date of the Encounter. Date/Time Source Result Type Result - Unit Interpretation Reference Range Comment Nov 19, 2021 [facility] HEMOGLOBIN A1C Specimen Type: BLOOD 09:20 AM [facility] Comment: Values obtained from A1C measurements can vary. For typical A1C assays, a reported value of 7.0 could actually be between 6.72 and 7.28 if measured by a reference method. A reported value of 9 .0 could actuall y be between 8.73 and 9.27. Ref: http://www.ngsp.org/CAPdata.asp Ordering Provid er: VIRA CRUZ Report Released Date/Time: Nov 18, 2021 08:44 PM Reporting Lab: [facility] [place] [facility] [address] [address] Performing Lab: [facility] [place] [facility] [address] [address] HEMOGLOBIN A1C 5.8 H 4.0-5.6 Nov 19, 2021 09:20 AM [place] [facility] [place] FERRITIN Specimen Type: SERUM [facility] No comment enter ed. Ordering Provid er: VIRA CRUZ Report Released Date/Time: Nov 18, 2021 08:49 PM Reporting Lab: [place] [facility] [place] [facility] [address] [address] Performing Lab: [place] [facility] [place] [facility] [address] [address] FERRITIN 299.9 20-300 Nov 19, 2021 [facility] LIPID PANEL FASTING Specimen Ty pe: SERUM 09:20 AM [place] [facility] No comment enter ed. Ordering Provid er: VIRA CRUZ Report Released Date/Time: Nov 18, 2021 08:44 PM Reporting Lab: [facility] [place] [facility] [address] [address] Performing Lab: [place] [facility] [place] [facility] [address] [address] CHOLESTEROL 158 <7-199 TRIGLYCERIDE 104 0-150 LDL calculated 95 0-129 CHOL/HDL 3.8 HDL CHOLESTEROL 42 40-60 Nov 19, 2021 09:20 [facility] LIVER FUNCTION Specimen Typ e: SERUM AM [place] [facility] No comment enter ed. Ordering Provid er: VIRA CRUZ Report Released Date/Time: Nov 18, 2021 08:44 PM Reporting Lab: [facility] [place] [facility] [address] [address] Performing Lab: [place] [facility] [place] [facility] [address] [address] PROTEIN,TOTAL 6.4 6.0-8.3 ALBUMIN 3.9 3.5-5.0 ALKALINE PHOSPHATASE 86 40-150 AST 20 5-34 ALT 31 <6-55 BILIRUBIN, TOTAL 0.9 0.2-1.2 Nov 19, 2021 [facility] BASIC METABOLIC Specimen Type: SERUM 09:20 AM [place] [facility] PANEL (fasting) No comment enter ed. Ordering Provid er: VIRA CRUZ Report Released Date/Time: Nov 18, 2021 08:44 PM Reporting Lab: [facility] [place] [facility] [address] [address] Performing Lab: [place] [facility] [place] [facility] [address] [address] UREA NITROGEN 18 7-25 GLUCOSE 117 H 65-100 SODIUM 140 135-145 POTASSIUM 4.5 3.5-5.0 CHLORIDE 103 100-110 CO2 27 20-30 CREATININE, Serum 0.91 0.50-1.40 eGFR(CKD-EPI 2020) 89 >60 Nov 19, 2021 09:20 [facility] TIBC [facility] Specimen T ype: SERUM AM [place] [facility] No comment enter ed. Ordering Provid er: VIRA CRUZ Report Released Date/Time: Nov 18, 2021 08:49 PM Reporting Lab: [facility] [place] [facility] [address] [address] Performing Lab: [facility] [address] [address] TIBC 246 204-475 IRON 248 H 40-160 Transferrin Saturation 101.0 H 20.0-50 .0 Nov 19, 2021 09:20 [facility] CBC AND DIFF Specimen Typ e: BLOOD AM [facility] (AUTO) No comment enter ed. Ordering Provid er: VIRA CRUZ Report Released Date/Time: Nov 18, 2021 08:44 PM Reporting Lab: [facility] [place] [facility] [address] [address] Performing Lab: [facility] ENTERPRISETRN [place] [facility] [address] [address] WBC 7.38 4.50-11.00 RBC 5.07 4.23-5.66 HGB 15.8 12.8-17 HCT 46.6 39.2-50.4 MCV 91.9 82-99 MCHC 33.9 30.8-35.1 PLT 179 140-360 RDW-CV 12.2 12.0-16.0 Hemphill, Abs 0.60 0.30-1.10 MCH 31.2 26.2-32.6 Neut % 66.0 Lymph % 23.7 Hemphill % 8.1 Eos % 1.4 Baso % 0.7 Neut, Abs 4.87 2.20-7.60 Lymph, Abs 1.75 1.00-3.20 Eos, Abs 0.10 0.03-0.44 Baso, Abs 0.05 0.01-0.13 Immature Gran % 0.1 Immature Gran, Abs 0.01 0.00-0.06 Social History: Smoking Status (Most current) and Tobacco Use (All prior to encounter date) This section includes the most current, and the historical, smoking and tobacco-related health factors from the [place] facility where the Encounter took place.Current Smoking Status This section includes the most current smoking, or tobacco-related health factor, from the [place] facility where the Encounter took place. Date/Time Current Smoking Status Comment Facility Oct 29, 2020 10:00 AM VA-TOBACCO DOESNT USE WI V A [facility] [place] 30 MIN [facility] Tobacco Use History This section includes a history of the smoking, or tobacco- related health factors, that were collected on or before the date of the Encounter. The data comes from the [place] facility where the Encounter took place. 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 [facility] YES [place] [facility] Oct 29, 2020 10:00 VA-TOBACCO USE MED NOTIFY [facility] PROVIDER [place] [facility] Oct 29, 2020 10:00 VA-TOBACCO USER EVERY DAY [facility] [place] [facility] Oct 10, 2019 11:00 VA-TOBACCO FORMER USER [facility] AM [place] [facility] Oct 10, 2019 11:00 VA-TOBACCO QUIT < 1 YEAR VA C [facility] AM [place] [facility] Oct 26, 2018 07:55 VA-TOBACCO USE > 15 LESS VA C NTRL W[facility] AM THAN 30 YEARS [place] [facility] Oct 26, 2018 07:55 VA-TOBACCO USE ADVICE [facility] [place] [facility] Oct 26, 2018 07:55 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 NO [facility] [place] [facility] Oct 26, 2018 07:55 VA-TOBACCO USE MED NO [facility] [place] [facility] Oct 26, 2018 07:55 VA-TOBACCO USE WI 30 MIN VA C [facility] AM OF [place] [facility] Oct 26, 2018 07:55 VA-TOBACCO USER EVERY DAY [facility] [place] [facility] Aug 04, 2017 08:53 CURRENT SMOKER [facility] [place] [facility] Aug 04, 2017 08:53 V1-PT DECLINES REF TO [facility] TOBACCO CESS PRGM [place] [facility] Aug 04, 2017 08:53 V1-PT DECLINES TOBACCO [facility] CESSATION MEDS [place] [facility] Aug 04, 2017 08:53 V1-PT THINKING ABOUT QUIT [facility] TOBACCO USE [place] [facility] Jan 31, 2017 09:51 QUIT TOBACCO USE IN PAST VA C N[facility]L [facility] AM YEAR 31 days [place] [facility] Jan 26, 2016 08:36 CURRENT SMOKER [facility] [place] [facility] Jan 26, 2016 08:36 V1-PT DECLINES REF TO [facility] TOBACCO CESS [facility] [place] [facility] Jan 26, 2016 08:36 V1-PT DECLINES TOBACCO [facility] AM CESSATION MEDS [place] [facility] Jan 26, 2016 08:36 V1-PT THINKING ABOUT QUIT [facility] TOBACCO USE [place] [facility] Feb 20, 2015 10:25 QUIT TOBACCO USE IN PAST VA C [facility] AM YEAR [place] [facility] June 17, 2014 07:37 CURRENT SMOKER [facility] AM Reports being an off and on smo ker -cigarettes [facility] June 17, 2014 07:37 V1-PT DECLINES REF TO [facility] TOBACCO CESS [facility] [place] [facility] June 17, 2014 07:37 V1-PT DECLINES TOBACCO [facility] AM CESSATION MEDS [place] [facility] June 17, 2014 07:37 V1-PT THINKING ABOUT QUIT [facility] TOBACCO USE [place] [facility] Sep 14, 2011 09:51 CURRENT SMOKER [facility] AM less than a pack a day [facility] Sep 14, 2011 09:51 V1-PT DECLINES REF TO [facility] TOBACCO CESS [facility]GM [place] [facility] Sep 14, 2011 09:51 V1-PT DECLINES TOBACCO [facility] AM CESSATION MEDS [place] [facility] Sep 14, 2011 09:51 V1-PT THINKING ABOUT QUIT [facility] AM TOBACCO USE [place] [facility] Mar 09, 2010 09:32 CURRENT SMOKER [facility] AM 1 ppd [place] [facility] Mar 09, 2010 09:32 V1-PT DECLINES TOBACCO [facility] AM CESSATION MEDS [place] [facility] Mar 09, 2010 09:32 V1-PT REF TO NON-VA [facility] TOBACCO CESS PRGM [place] Mar 09, 2010 09:32 V1-PT THINKING ABOUT QUIT [facility] AM TOBACCO USE [place] [facility] Sep 29, 2009 02:07 V1-PT DECLINES REF TO [facility] PM TOBACCO CESS PRGM [place] Sep 29, 2009 02:07 V1-PT DECLINES TOBACCO [facility] PM CESSATION MEDS [place] [facility] Sep 29, 2009 02:07 V1-PT NOT INTERESTED IN [facility] PM QUIT TOBACCO USE [place] [facility] Jan 29, 2009 11:00 CURRENT SMOKER [facility] AM 1 ppd [place] [facility] Jan 29, 2009 11:00 V1-PT DECLINES TOBACCO [facility] AM CESSATION MEDS [place] [facility] Jan 29, 2009 11:00 V1-PT READY TO QUIT [facility] AM TOBACCO USE [place] [facility] Mar 17, 2005 08:36 CURRENT SMOKER [facility] AM [place] [facility] Encounter Notes: All associated encounter notes This section contains the clinical notes associated to the Encounter. Date/Time Encounter Note(s) Provider Source Oct 22, 2021 09:03 AM ADMINISTRATIVE NOTE: JALYN SIMMS [facility] LOCAL TITLE: CCC: SCHEDULING ADMINISTRATION [facility] TITLE: ADMINISTRATIVE NOTE DATE OF NOTE: OCT 22, 2021@09:03:33 ENTRY DATE: OCT 22, 2021@09:05:10 AUTHOR: JALYN SIMMS EXP COSIGNER: URGENCY: STATUS: COMPLETED CCC: SCHEDULING ADMINISTRATION Has ADDENDA Type of call: SCHEDULING. PCMM Provider Info: LOCAL - [facility] [place] [facility] ([id number]) PACT: NO PACT 1 (Focus: Primary Care Only) Primary Care Provider: VIRA CRUZ MD PHONE:[phone] Spring Former Machine: LIZETH LOVE PHONE:[phone] Clinical Associate: YOHANNES LEDEZMA PHONE:[phone] Socket Puller: Clinical POC: Spring Former Machine LIZETH LOVE PHONE:[phone] Administrative POC: *PATIENT called in for BRAD CUENCA ([phone]) . The following identifiers were used to verify th is patient: . SSN. Contact Phone Number: Caller Response: ADM CALL RESOLVED Caller Area: [place] Imported Information: Vandiver requesting to schedule ear lavage appoin tment. Vet phone is [phone] Author: JALYN SIMMS Evaluation/Management Code: HC PRO PHONE CALL 5- 10 MIN ([phone]). Starting at: 10/22/2021 @ 9:03:33 AM Ending at: 10/22/2021 @ 9:05:03 AM Length: 1 minutes. Chief Complaint: Not applicable to call. Class Code: Other specified counseling. /natalie/ JALYN SIMMS VISN 1 [facility] AMSA Signed: 10/22/2021 09:05 Receipt Acknowledged By: 10/22/2021 10:30 /natalie/ LIZETH LOVE Registered Nurse 10/22/2021 ADDENDUM STATUS: COMPLETED appt made for 10/23@0800 /avani LOVE Registered Nurse Signed: 10/22/2021 10:34
--- OUTSIDE RECORDS SUMMARY | 2021-12-29 17:15 | XMS_ITS ---
:1950 Author Organization Department [facility] Address [address] [place] [id number] Support Name Relationship Address Phone MARIAN CABRERA Unavailable [address] [place] [phone] MARIAN CABRERA Unavailable [address] [place] [phone] Insurance Providers: All historical and current Section [...] MEDICARE MEDICARE PART Jul 15, PART A [id number] BANG PATIENT (WNR) (M) A 2013 90A 4 BRAD PALACIOS MEDICARE MEDICARE PART Jul 15, PART B [id number] BANG PATIENT (WNR) (M) B 2013A 4 BRAD PALACIOS Selected Encounter This section includes the information on record at [place] for the Encounter. Date/Time Encounter Type Encounter Reason Provider Source Description Dec 09, 2021 HC PRO PHONE TELEPHONE PRIMARY ICD-10-CM Z71.9 MADAY LOVE 09:19 AM CALL 11-20 MIN CARE Counseling, SSA A unspecified with Provider Comments: Counseling, unspecified IHE Encounter Template Text not used by [place] Assessments - Encounter Diagnoses This section includes the primary and secondary diagnoses documented for the Encounter. Date/Time Primary/Secondary Diagnosis Name Provider Source Diagnosis Dec 09, 2021 PRIMARY Counseling, MADAY LOVE [facility] AM unspecified SSA A [place] [facility] Plan of Treatment: Future Appointments (+ 6 months) and Future Tests (+/- 45 days) The Plan of Treatment section includes future care activities for the patient from all [place] treatmentfacilities. This section includes future appointments and future orders which are active, pending orscheduled.Future Appointments This section includes appointments that were scheduled to occur 6 months from the date of the Encounter, up to a maximum of 20 appointments. The data comes from all [place] treatment facilities. Appointment Date/Time Appointment Type Appointment Facili ty Name Dec 24, 2021 01:00 PM [facility] [place] [facility] Feb 23, 2022 08:30 AM AMBULATORY - MEDICINE [facility] May 27, 2022 08:30 AM AMBULATORY - MEDICINE [facility] Lab Results: +/- 30 days of the encounter This section includes the Chemistry and Hematology Lab Results on record with SD for the patient. Radiology Reports and Pathology Reports are provided separately, in subsequent sections.Lab Results This section contains the Chemistry/Hematology Results that were resulted 30 days before or 30 daysafter the date of the Encounter. Date/Time Source Result Type Result - Unit Interpretation Reference Range Comment Nov 19, 2021 09:20 AM [facility] Specimen Type: SERUM [facility] No comment enter ed. Ordering Provid er: VIRA ROBLERO Report Released Date/Time: Nov 18, 2021 08:49 PM Reporting Lab: [facility] [place] [address] [facility] [address] Performing Lab: [facility] [place] [address] [facility] [address] FERRITIN 299.9 20-300 Nov 19, 2021 [facility] HEMOGLOBIN A1C Specimen Type: BLOOD 09:20 AM [facility] PANEL Comment: Values obtained from A1C measurements can vary. For typical A1C assays, a reported value of 7.0 could actually be between 6.72 and 7.28 if measured by a reference method. A reported value of 9 .0 could actuall y be between 8.73 and 9.27. Ref: http://www.ngsp.org/CAPdata.asp Ordering Provid er: VIRA ROBLERO Report Released Date/Time: Nov 18, 2021 08:44 PM Reporting Lab: [facility] [place] [facility] [address] [facility] [address] Performing Lab: [facility] [place] [facility] [address] [facility] [address] HEMOGLOBIN A1C 5.8 H 4.0-5.6 Nov 19, 2021 [facility] LIPID PANEL FASTING Specimen Ty pe: SERUM 09:20 AM [place] [facility] No comment enter ed. Ordering Provid er: VIRA ROBLERO Report Released Date/Time: Nov 18, 2021 08:44 PM Reporting Lab: [facility] [place] [facility] [address] [facility] [address] Performing Lab: [facility] [place] [facility] [address] [facility] [address] CHOLESTEROL 158 <7-199 TRIGLYCERIDE 104 0-150 LDL calculated 95 0-129 CHOL/HDL 3.8 HDL CHOLESTEROL 42 40-60 Nov 19, 2021 09:20 [facility] LIVER FUNCTION Specimen Typ e: SERUM AM [place] [facility] No comment enter ed. Ordering Provid er: VIRA ROBLERO Report Released Date/Time: Nov 18, 2021 08:44 PM Reporting Lab: [facility] [place] [facility] [address] [facility] [address] Performing Lab[facility] [place] [facility] [address] [facility] [address] PROTEIN,TOTAL 6.4 6.0-8.3 ALBUMIN 3.9 3.5-5.0 ALKALINE PHOSPHATASE 86 40-150 AST 20 5-34 ALT 31 <6-55 BILIRUBIN, TOTAL 0.9 0.2-1.2 Nov 19, 2021 [facility] BASIC METABOLIC Specimen Type: SERUM 09:20 AM [place] [facility] PANEL (fasting) No comment enter ed. Ordering Provid er: VIRA ROBLERO Report Released Date/Time: Nov 18, 2021 08:44 PM Reporting Lab: [facility] [place] [facility] [address] [facility] [address] Performing Lab: [facility] [place] [facility] [address] [facility] [address] UREA NITROGEN 18 7-25 GLUCOSE 117 H 65-100 SODIUM 140 135-145 POTASSIUM 4.5 3.5-5.0 CHLORIDE 103 100-110 CO2 27 20-30 CREATININE, Serum 0.91 0.50-1.40 eGFR(CKD-EPI 2020) 89 >60 Nov 19, 2021 09:20 [facility] IRON & TIBC PANEL Specimen T ype: SERUM AM [place] [facility] No comment enter ed. Ordering Provid er: VIRA ROBLERO Report Released Date/Time: Nov 18, 2021 08:49 PM Reporting Lab: [facility] [place] [facility] [address] [facility] [address] Performing Lab: [facility] [address] [facility] [address] TIBC 246 204-475 IRON 248 H 40-160 Transferrin Saturation 101.0 H 20.0-50 .0 Nov 19, 2021 09:20 [facility] CBC AND DIFF Specimen Typ e: BLOOD AM [place] [facility] (AUTO) No comment enter ed. Ordering Provid er: VIRA ROBLERO Report Released Date/Time: Nov 18, 2021 08:44 PM Reporting Lab: [facility] [place] [facility] [address] [facility] [address] Performing Lab: [facility] [place] [facility] [address] [facility] [address] WBC 7.38 4.50-11.00 RBC 5.07 4.23-5.66 HGB 15.8 12.8-17 HCT 46.6 39.2-50.4 MCV 91.9 82-99 MCHC 33.9 30.8-35.1 PLT 179 140-360 RDW-CV 12.2 12.0-16.0 Chicot, Abs 0.60 0.30-1.10 MCH 31.2 26.2-32.6 Neut % 66.0 Lymph % 23.7 Chicot % 8.1 Eos % 1.4 Baso % 0.7 Neut, Abs 4.87 2.20-7.60 Lymph, Abs 1.75 1.00-3.20 Eos, Abs 0.10 0.03-0.44 Baso, Abs 0.05 0.01-0.13 Immature Gran % 0.1 Immature Gran, Abs 0.01 0.00-0.06 Social History: Smoking Status (Most current) and Tobacco Use (All prior to encounter date) This section includes the most current, and the historical, smoking and tobacco-related health factors from the [place] facility where the Encounter took place.Current Smoking Status This section includes the most current smoking, or tobacco-related health factor, from the [place] facility where the Encounter took place. Date/Time Current Smoking Status Comment Facility Oct 23, 2021 08:00 AM VA-TOBACCO USER EVERY DAY [facility] [place] [facility] Tobacco Use History This section includes a history of the smoking, or tobacco- related health factors, that were collected on or before the date of the Encounter. The data comes from the [place] facility where the Encounter took place. Date/Time Smoking Status/Tobacco Comment Facility Use Oct 23, 2021 08:00 VA-TOBACCO USE 30 YEARS [facility] T[facility] AM OR MORE [place] [facility] Oct 23, 2021 08:00 VA-TOBACCO USE ADVICE [facility] [place] [facility] Oct 23, 2021 08:00 VA-TOBACCO USE FIELD HAND NO [facility] [place] [facility] Oct 23, 2021 08:00 VA-TOBACCO USE MED NO [facility] [place] [facility] Oct 23, 2021 08:00 VA-TOBACCO USER EVERY DAY [facility] [place] [facility] Oct 29, 2020 10:00 VA-TOBACCO DOESNT USE WI [facility] AM 30 MIN WAKEUP [place] [facility] Oct 29, 2020 10:00 VA-TOBACCO USE 30 YEARS [facility] AM OR MORE [place] [facility] Oct 29, 2020 10:00 VA-TOBACCO USE ADVICE [facility] [place] [facility] Oct 29, 2020 10:00 VA-TOBACCO USE FIELD HAND [facility] AM YES [place] [facility] Oct 29, 2020 10:00 VA-TOBACCO USE MED NOTIFY [facility] PROVIDER [place] [facility] Oct 29, 2020 10:00 VA-TOBACCO USER EVERY DAY [facility] [place] [facility] Oct 10, 2019 11:00 VA-TOBACCO FORMER USER [facility] AM [place] [facility] Oct 10, 2019 11:00 VA-TOBACCO QUIT < 1 YEAR [facility] [place] [facility] Oct 26, 2018 07:55 VA-TOBACCO USE > 15 LESS [facility] THAN [address] [facility] Oct 26, 2018 07:55 VA-TOBACCO USE ADVICE [facility] [place] [facility] Oct 26, 2018 07:55 VA-TOBACCO USE FIELD HAND NO [facility] [place] [facility] Oct 26, 2018 07:55 VA-TOBACCO USE MED NO [facility] [place] [facility] Oct 26, 2018 07:55 VA-TOBACCO USE WI 30 MIN [facility] Oct 26, 2018 07:55 VA-TOBACCO USER EVERY DAY [facility] [place] [facility] Aug 04, 2017 08:53 CURRENT SMOKER [facility] [place] [facility] Aug 04, 2017 08:53 V1-PT DECLINES REF TO [facility] TOBACCO CESS PRGM [place] [facility] Aug 04, 2017 08:53 V1-PT DECLINES TOBACCO [facility] CESSATION MED[facility] Aug 04, 2017 08:53 V1-PT THINKING ABOUT QUIT [facility] AM TOBACCO USE [place] [facility] Jan 31, 2017 09:51 QUIT TOBACCO USE IN PAST VA C NTRL WSTR[facility] AM YEAR 31 days [place] [facility] Jan 26, 2016 08:36 CURRENT SMOKER [facility] [place] [facility] Jan 26, 2016 08:36 V1-PT DECLINES REF TO [facility] AM TOBACCO CESS PRGM [place] [facility] Jan 26, 2016 08:36 V1-PT DECLINES TOBACCO [facility] AM CESSATION MEDS [place] [facility] Jan 26, 2016 08:36 V1-PT THINKING ABOUT QUIT [facility] TOBACCO USE [place] [facility] Feb 20, 2015 10:25 QUIT TOBACCO USE IN PAST VA C NTRL W[facility] AM YEAR [place] [facility] June 17, 2014 07:37 CURRENT SMOKER [facility] N AM Reports being an off and on smo ker -cigarettes [facility] June 17, 2014 07:37 V1-PT DECLINES REF TO [facility] AM TOBACCO CESS PRGM [place] June 17, 2014 07:37 V1-PT DECLINES TOBACCO [facility] AM CESSATION MEDS [place] [facility] June 17, 2014 07:37 V1-PT THINKING ABOUT QUIT [facility] TOBACCO USE [place] [facility] Sep 14, 2011 09:51 CURRENT SMOKER [facility] AM less than a pack a day [place] [facility] Sep 14, 2011 09:51 V1-PT DECLINES REF TO [facility] AM TOBACCO CESS PRGM [place] Sep 14, 2011 09:51 V1-PT DECLINES TOBACCO [facility] AM CESSATION MEDS [place] [facility] Sep 14, 2011 09:51 V1-PT THINKING ABOUT QUIT [facility] AM TOBACCO USE [place] [facility] Mar 09, 2010 09:32 CURRENT SMOKER [facility] AM 1 ppd [place] [facility] Mar 09, 2010 09:32 V1-PT DECLINES TOBACCO [facility] AM CESSATION MEDS [place] [facility] Mar 09, 2010 09:32 V1-PT REF TO NON-VA [facility]ACCO CESS [facility] Mar 09, 2010 09:32 V1-PT THINKING ABOUT QUIT [facility] [place] TOBACCO USE [place] [facility] Sep 29, 2009 02:07 V1-PT DECLINES REF TO [facility] PM TOBACCO CESS PRGM [place] Sep 29, 2009 02:07 V1-PT DECLINES TOBACCO [facility] PM CESSATION MEDS [place] [facility] Sep 29, 2009 02:07 V1-PT NOT INTERESTED IN [facility] PM QUIT TOBACCO USE [place] [facility] Jan 29, 2009 11:00 CURRENT SMOKER [facility] AM 1 ppd [place] [facility] Jan 29, 2009 11:00 V1-PT DECLINES TOBACCO [facility] AM CESSATION MEDS [place] [facility] Jan 29, 2009 11:00 V1-PT READY TO QUIT [facility] AM TOBACCO USE [facility] Mar 17, 2005 08:36 CURRENT SMOKER [facility] Radiology Reports: +/- 30 days of the [...] the Encounter. The data comes from all [place] treatment facilities. Date/Time Radiology Report Provider Source Dec 24, 2021 12:49 CT THORAX W/O CONT: RADIOLOGY,OUTSIDE [facility] L W[facility] PM BRAD CUENCA [id number] -[birth year] 7 M SERVICE [facility] Exm Date: DEC 24, 2021@12:49 Req Phys: VIRA ROBLERO Pat Loc: CWM/NO/P ACT 1 (Req'g Loc) Img Loc: NHM/CT Service: Unknown (Case [id number] COMPLETE) CT THORAX W/O CONT (CT Detai led) CPT:12536 Reason for Study: CT chest Clinical History: [...] 25, 2021 Date Verified: DEC 25, 2021 Sustainability Coordinator E-Sig: Report: CT THORAX W/O CONT HISTORY: CT chest COMPARISON: Chest CT December 22, 2020 TECHNIQUE: Volumetric CT acquisition through chest, with axial, coronal and sagittal reformats, was perf ormed at the local [place] facility. 1079 images were received by the A National Teleradiology Program (NTP) for interpretation. [...] clinical findings READING PHYSICIAN: Ron Underwood M.D. [phone] 12/25/2021 11:45 [facility] National Teleradiology Program [phone] (For Medical Practitioner Use Only ) Attention Patients / Veterans: If you have ques tions or concerns about these test results, please contact your [facility] provider or primary care team. Primary Diagnostic Code: NO ALERT REQUIRED Primary Interpreting Staff: RADIOLOGY,OUTSIDE SERVICE, Staff Physician / Encounter Notes: All associated encounter notes This section contains the clinical notes associated to the Encounter. Date/Time Encounter Note(s) Provider Source Dec 09, 2021 09:19 NURSING NOTE: LIZETH LOVE CNTRL WS TRN AM LOCAL TITLE: NURSING/TELEPHONE A [facility] STANDARD TITLE: NURSING NOTE DATE OF NOTE: DEC 09, 2021@09:19 ENTRY DATE: DEC 09, 2021@09:19:45 AUTHOR: LIZETH LOVE EXP COSIGNER: URGENCY: STATUS: COMPLETED NURSING/TELEPHONE Has ADDENDA F: Upper respiratory illness D/A: States he has congestion times 12 days. SOB , coughing up phlegm light in color. States he went to the pharmacy and got dayquil/nightquil to help. Clementon states that the SOB is not s topping him from his ADL's. He states the congestion is more troublesome than any of the other symtom s. Denies headache, n/v/d, fever. Reji [place] [facility] [place]. Chest Xray impr ession reads: mild hyperinflation and bronchial wall thickening whi ch could be seen with COPD or asthma. No pneumonia or CHF. left ED AMA due to wait time. Clementon is requesting either an Antibiotic or so mething to help with the symptoms. Clementon educated that typicall y antibiotics are not prescribed for a viral illness, but there may be circumstances in which Dr. Roblero feels it is appropriate. This request will be sent t o Dr. Roblero and any recommendations or orders will be communitcated to him. R: Reji was grateful for the call. /natalie/ LIZETH LOVE Registered Nurse Signed: 12/09/2021 09:32 Receipt Acknowledged By: 12/09/2021 09:35 /natalie/ VIRA ROBLERO MD STAFF PHYSICIAN 12/09/2021 ADDENDUM STATUS: COMPLETED I would treat for COPD exace rbation with Zithromax and prednisone requested for pickup /avani ROBLERO MD STAFF PHYSICIAN Signed: 12/09/2021 09:40 Receipt Acknowledged By: * AWAITING SIGNATURE * LIZETH LOVE
--- OUTSIDE RECORDS SUMMARY | 2021-12-29 17:15 | XMS_ITS ---
:1950 Author Organization Department [facility] rs Address [address] [place] [id number] Support Name Relationship Address Phone MARIAN CABRERA Unavailable [address] [place] [phone] MARIAN CABRERA Unavailable [address] [place] [phone] Insurance Providers: All historical and current Section [...] MEDICARE MEDICARE PART Jul 15, PART A [id number] BANG PATIENT (WNR) (M) A 2013 90A 4 BRAD PALACIOS MEDICARE MEDICARE PART Jul 15, PART B [id number] BANG PATIENT (WNR) (M) B 2013A 4 BRAD PALACIOS Selected Encounter This section includes the information on record at [facility] for the Encounter. Date/Time Encounter Type Encounter Description Reason Provider Source Oct 30, 2021 11:34 Outpatient Encounter PRIMARY CARE/MEDICINE AM [facility] Encounter Template Text not used by [facility] Plan of Treatment: Future Appointments (+ 6 months) and Future Tests (+/- 45 days) The Plan of Treatment section includes future care activities for the patient from all [facility] treatmentfacilities. This section includes future appointments and future orders which are active, pending orscheduled.Future Appointments This section includes appointments that were scheduled to occur 6 months from the date of the Encounter, up to a maximum of 20 appointments. The data comes from all [facility] treatment facilities. Appointment Date/Time Appointment Type Appointment Facili ty Name Nov 19, 2021 08:30 AM AMBULATORY - MEDICINE [facility] Dec 24, 2021 01:00 PM AMBULATORY - NONE [facility] [place] Feb 23, 2022 08:30 AM AMBULATORY - MEDICINE [facility] Lab Results: +/- 30 days of the encounter This section includes the Chemistry and Hematology Lab Results on record with [facility] for the patient. Radiology Reports and Pathology Reports are provided separately, in subsequent sections.Lab Results This section contains the Chemistry/Hematology Results that were resulted 30 days before or 30 daysafter the date of the Encounter. Date/Time Source Result Type Result - Unit Interpretation Reference Range Comment Nov 19, 2021 09:20 AM [facility] [place] F[facility]ITIN Specimen Type: SERUM HCS No comment enter ed. Ordering Provid er: VIRA CRUZ Report Released Date/Time: Nov 18, 2021 08:49 PM Reporting Lab: [facility] [place] [facility] [address] [facility] [address] Performing Lab: [facility] [place] [facility] [address] [facility] [address] FERRITIN 299.9 20-300 Nov 19, 2021 [facility] HEMOGLOBIN A1C Specimen Type: BLOOD 09:20 AM [facility] PANEL Comment: Values obtained from A1C measurements can vary. For typical A1C assays, a reported value of 7.0 could actually be between 6.72 and 7.28 if measured by a reference method. A reported value of 9 .0 could actuall y be between 8.73 and 9.27. Ref: http://www.ngsp.org/CAPdata.asp Ordering Provid er: VIRA CRUZ Report Released Date/Time: Nov 18, 2021 08:44 PM Reporting Lab: [facility] [place] [facility] [address] [facility] [address] Performing Lab: [facility] [facility] [address] [facility] [address] HEMOGLOBIN A1C 5.8 H 4.0-5.6 Nov 19, 2021 [facility] LIPID PANEL FASTING Specimen Ty pe: SERUM 09:[address] [place] [facility] No comment enter ed. Ordering Provid er: VIRA CRUZ Report Released Date/Time: Nov 18, 2021 08:44 PM Reporting Lab: [facility] [place] [facility] [address] [facility] [address] Performing Lab: [facility] [place] [facility] [address] [facility] [address] CHOLESTEROL 158 <7-199 TRIGLYCERIDE 104 0-150 LDL calculated 95 0-129 CHOL/HDL 3.8 HDL CHOLESTEROL 42 40-60 Nov 19, 2021 09:20 [facility] LIVER FUNCTION Specimen Typ e: SERUM [place] [facility] No comment enter ed. Ordering Provid er: VIRA CRUZ Report Released Date/Time: Nov 18, 2021 08:44 PM Reporting Lab: [facility] [place] [facility] [address] [facility] [address] Performing Lab: [facility] [address] [facility] [address] PROTEIN,TOTAL 6.4 6.0-8.3 ALBUMIN 3.9 3.5-5.0 ALKALINE PHOSPHATASE 86 40-150 AST 20 5-34 ALT 31 <6-55 BILIRUBIN, TOTAL 0.9 0.2-1.2 Nov 19, 2021 [facility] BASIC METABOLIC Specimen Type: SERUM 09:[address] [place] [facility] PANEL (fasting) No comment enter ed. Ordering Provid er: VIRA CRUZ Report Released Date/Time: Nov 18, 2021 08:44 PM Reporting Lab: [facility] [place] [facility] [address] [facility] [address] Performing Lab: [facility] [place] [facility] [address] [facility] [address] UREA NITROGEN 18 7-25 GLUCOSE 117 H 65-100 SODIUM 140 135-145 POTASSIUM 4.5 3.5-5.0 CHLORIDE 103 100-110 CO2 27 20-30 CREATININE, Serum 0.91 0.50-1.40 eGFR(CKD-EPI 2020) 89 >60 Nov 19, 2021 09:20 [facility] IRON & TIBC PANEL Specimen T ype: SERUM [place] [facility] No comment enter ed. Ordering Provid er: VIRA CRUZ Report Released Date/Time: Nov 18, 2021 08:49 PM Reporting Lab: [facility] [address] [facility] [address] Performing Lab: [facility] [address] [facility] [address] TIBC 246 204-475 IRON 248 H 40-160 Transferrin Saturation 101.0 H 20.0-50 .0 Nov 19, 2021 09:20 [facility]TRN CBC AND DIFF Specimen Typ e: BLOOD AM [facility]USE[facility] (AUTO) No comment enter ed. Ordering Provid er: VIRA CRUZ Report Released Date/Time: Nov 18, 2021 08:44 PM Reporting Lab: [facility] [address] [facility] [address] Performing Lab: [facility]TRN [facility] [address] [facility] [address] WBC 7.38 4.50-11.00 RBC 5.07 4.23-5.66 HGB 15.8 12.8-17 HCT 46.6 39.2-50.4 MCV 91.9 82-99 MCHC 33.9 30.8-35.1 PLT 179 140-360 RDW-CV 12.2 12.0-16.0 [place], Abs 0.60 0.30-1.10 MCH 31.2 26.2-32.6 Neut % 66.0 Lymph % 23.7 [place] % 8.1 Eos % 1.4 Baso % 0.7 Neut, Abs 4.87 2.20-7.60 Lymph, Abs 1.75 1.00-3.20 Eos, Abs 0.10 0.03-0.44 Baso, Abs 0.05 0.01-0.13 Immature Gran % 0.1 Immature Gran, Abs 0.01 0.00-0.06 Social History: Smoking Status (Most current) and Tobacco Use (All prior to encounter date) This section includes the most current, and the historical, smoking and tobacco-related health factors from the [facility] facility where the Encounter took place.Current Smoking Status This section includes the most current smoking, or tobacco-related health factor, from the [facility] facility where the Encounter took place. Date/Time Current Smoking Status Comment Facility Oct 23, 2021 08:00 AM VA-TOBACCO USER EVERY DAY [facility] [place] [facility] Tobacco Use History This section includes a history of the smoking, or tobacco- related health factors, that were collected on or before the date of the Encounter. The data comes from the [facility] facility where the Encounter took place. Date/Time Smoking Status/Tobacco Comment Facility Use Oct 23, 2021 08:00 VA-TOBACCO USE 30 YEARS [facility] AM [place] [facility] Oct 23, 2021 08:00 VA-TOBACCO USE ADVICE [facility] [place] 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 Oct 23, 2021 08:00 VA-TOBACCO USE MED NO [facility] [place] [facility] Oct 23, 2021 08:00 VA-TOBACCO USER EVERY DAY [facility] [place] [facility] Oct 29, 2020 10:00 VA-TOBACCO DOESNT USE WI [facility] AM 30 MIN [address] [place] [facility] Oct 29, 2020 10:00 VA-TOBACCO USE 30 YEARS [facility] AM [place] [facility] Oct 29, 2020 10:00 VA-TOBACCO USE ADVICE [facility] [place] 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 Oct 29, 2020 10:00 VA-TOBACCO USE MED NOTIFY [facility] [place] PROVIDER [place] [facility] Oct 29, 2020 10:00 VA-TOBACCO USER EVERY DAY [facility] [place] [facility] Oct 10, 2019 11:00 VA-TOBACCO FORMER USER [facility] [place] [facility] Oct 10, 2019 11:00 VA-TOBACCO QUIT < 1 YEAR [facility] [place] [facility] Oct 26, 2018 07:55 VA-TOBACCO USE > 15 LESS VA C N[facility]L [facility] AM THAN 30 YEARS [facility] Oct 26, 2018 07:55 VA-TOBACCO USE ADVICE [facility] [place] 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 Oct 26, 2018 07:55 VA-TOBACCO USE MED NO [facility] [place] [facility] Oct 26, 2018 07:55 VA-TOBACCO USE WI 30 MIN VA C N[facility] AM OF WAKEUP [facility] Oct 26, 2018 07:55 VA-TOBACCO USER EVERY DAY [facility] AM [facility] Aug 04, 2017 08:53 CURRENT SMOKER [facility] [place] [facility] Aug 04, 2017 08:53 V1-PT DECLINES REF TO [facility] AM TOBACCO CESS PRGM [facility] Aug 04, 2017 08:53 V1-PT DECLINES TOBACCO [facility] AM CESSATION MEDS [facility] Aug 04, 2017 08:53 V1-PT THINKING ABOUT QUIT [facility] [place] [facility] Jan 31, 2017 09:51 QUIT TOBACCO USE IN PAST VA C NTRL WSTRN AM YEAR 31 days [facility] Jan 26, 2016 08:36 CURRENT SMOKER [facility] [place] [facility] Jan 26, 2016 08:36 V1-PT DECLINES REF TO [facility] AM TOBACCO CESS PRGM [facility] Jan 26, 2016 08:36 V1-PT DECLINES TOBACCO [facility] [place] CESSATION MEDS [place] [facility] Jan 26, 2016 08:36 V1-PT THINKING ABOUT QUIT [facility] AM TOBACCO USE [facility] Feb 20, 2015 10:25 QUIT TOBACCO USE IN PAST VA C [facility] [place] YEAR [place] [facility] June 17, 2014 07:37 CURRENT SMOKER [facility] AM Reports being an off and on smo ker -cigarettes [facility] June 17, 2014 07:37 V1-PT DECLINES REF TO [facility] AM TOBACCO CESS PRGM [facility] June 17, 2014 07:37 V1-PT DECLINES TOBACCO [facility] [place] CESSATION MEDS [place] [facility] June 17, 2014 07:37 V1-PT THINKING ABOUT QUIT [facility] [place]AC[place] [facility] Sep 14, 2011 09:51 CURRENT SMOKER [facility] AM less than a pack a day [place] [facility] Sep 14, 2011 09:51 V1-PT DECLINES REF TO [facility] AM TOBACCO CESS PRGM [place] [facility] Sep 14, 2011 09:51 V1-PT DECLINES TOBACCO [facility] AM CESSATION MEDS [place] [facility] Sep 14, 2011 09:51 V1-PT THINKING ABOUT QUIT [facility] [place]ACCO [place] [facility] Mar 09, 2010 09:32 CURRENT SMOKER [facility] AM [address] [place] [facility] Mar 09, 2010 09:32 V1-PT DECLINES TOBACCO [facility] AM CESSATION MEDS [place] [facility] Mar 09, 2010 09:32 V1-PT REF TO NON-VA [facility] AM TOBACCO CESS PRGM [place] Mar 09, 2010 09:32 V1-PT THINKING ABOUT QUIT [facility] [place]AC[place] [facility] Sep 29, 2009 02:07 V1-PT DECLINES REF TO [facility] PM TOBACCO CESS PRGM [place] Sep 29, 2009 02:07 V1-PT DECLINES TOBACCO [facility] PM CESSATION MEDS [place] [facility] Sep 29, 2009 02:07 V1-PT NOT INTERESTED IN [facility] PM QUIT TOBACCO [place] [facility] Jan 29, 2009 11:00 CURRENT SMOKER [facility] AM [address] [place] [facility] Jan 29, 2009 11:00 V1-PT DECLINES TOBACCO VA [facility] AM CESSATION MEDS [place] [facility] Jan 29, 2009 11:00 V1-PT READY TO QUIT [facility] AM [place]BACCO [place] [facility] Mar 17, 2005 08:36 CURRENT SMOKER [facility] [place] [facility] Encounter Notes: All associated encounter notes This section contains the clinical notes associated to the Encounter. Date/Time Encounter Note(s) Provider Source Oct 30, 2021 11:34 AM ADMINISTRATIVE NOTE: JENN HORAN [facility] LOCAL TITLE: ADMINISTRATIVE NOTE [place] [facility] STANDARD TITLE: ADMINISTRATIVE NOTE DATE OF NOTE: OCT 30, 2021@11:34 ENTRY DATE: OCT 30, 2021@11:34:33 AUTHOR: JENN HORAN EXP COSIGNER: URGENCY: STATUS: COMPLETED Reminder call for your upcoming Primary Care I[place] ointment and the need for preparations prior to your upco himanshu appt. 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
--- OUTSIDE RECORDS SUMMARY | 2021-12-29 17:15 | XMS_ITS ---
:1950 Author Organization [facility] rs Address [address] [place] [address] Support Name Relationship Address Phone MARIAN CABRERA Unavailable [address] [place] [address] MARIAN CABRERA Unavailable [address] [place] [address] Insurance Providers: All historical and current Section [...] MEDICARE MEDICARE PART Jul 15, PART A [id number] BANG PATIENT (WNR) (M) A 2013 90A 4 BRAD PALACIOS MEDICARE MEDICARE PART Jul 15, PART B [id number] BANG PATIENT (WNR) (M) B 2013A 4 BRAD PALACIOS Selected Encounter This section includes the information on record at ME for the Encounter. Date/Time Encounter Type Encounter Reason Provider Source Description Nov 19, 2021 OFFICE O/P EST PRIMARY ICD-10-CM J43.2 BA CRUZ 08:30 AM MOD 30-39 MIN CARE/MEDICINE Centrilobular D JAWED emphysema with Provider Comments: Centriacinar emphysema (SCT [id number]) IHE Encounter Template Text not used by [facility] Assessments - Encounter Diagnoses This section includes the primary and secondary diagnoses documented for the Encounter. Date/Time Primary/Secondary Diagnosis Name Provider Source Diagnosis Nov 19, 2021 PRIMARY Centrilobular BA CRUZ [facility] CN[facility] WSTR N 09:03 AM emphysema [facility] Nov 19, 2021 SECONDARY Benign prostatic BA CRUZ [facility] W STRN 09:03 AM hyperplasia without [facility] lower urinry tract symp Nov 19, 2021 SECONDARY Impaired fasting BA CRUZ [facility] 09:03 AM glucose D [facility] Nov 19, 2021 SECONDARY Nicotine dependence, BA CRUZ ME CNT RL WSTRN 09:03 AM unsp, w oth D [facility] nicotine-induced disorders Nov 19, 2021 SECONDARY Other [facility] 09:03 AM hemochromatosis [facility] Nov 19, 2021 SECONDARY Other obesity BA CRUZ [facility] N 09:03 AM D [facility] Plan of Treatment: Future Appointments (+ 6 months) and Future Tests (+/- 45 days) The Plan of Treatment section includes future care activities for the patient from all ME treatmentfacilities. This section includes future appointments and future orders which are active, pending orscheduled.Future Appointments This section includes appointments that were scheduled to occur 6 months from the date of the Encounter, up to a maximum of 20 appointments. The data comes from all ME treatment facilities. Appointment Date/Time Appointment Type Appointment Facili ty Name Dec 24, 2021 01:00 PM [facility] [place] [facility] Feb 23, 2022 08:30 AM AMBUL[facility]ORY - MEDICINE [facility] [place] [facility] Lab Results: +/- 30 days of the encounter This section includes the Chemistry and Hematology Lab Results on record with ME for the patient. Radiology Reports and Pathology Reports are provided separately, in subsequent sections.Lab Results This section contains the Chemistry/Hematology Results that were resulted 30 days before or 30 daysafter the date of the Encounter. Date/Time Source Result Type Result - Unit Interpretation Reference Range Comment Nov 19, 2021 [facility] Specimen Type: BLOOD 09:20 AM [...] PM Reporting Lab: [facility] [address] [facility] [address] Performing Lab: [facility] [address] [facility] [address] HEMOGLOBIN A1C 5.8 H 4.0-5.6 Nov 19, 2021 09:20 AM [facility] [place] FERRITIN Specimen Type: [facility] No comment enter ed. Ordering Provid er: VIRA CRUZ Report Released Date/Time: Nov 18, 2021 08:49 PM Reporting Lab: [facility] [address] [facility] [address] Performing Lab: [facility] [place] [facility] [address] [facility] [address] FERRITIN 299.9 20-300 Nov 19, 2021 [facility] LIPID PANEL FASTING Specimen Ty pe: SERUM 09:20 AM [place] [facility] No comment enter ed. Ordering Provid er: VIRA CRUZ Report Released Date/Time: Nov 18, 2021 08:44 PM Reporting Lab: [facility] [address] [facility] [address] Performing Lab: [facility] [address] [facility] [address] CHOLESTEROL 158 <7-199 TRIGLYCERIDE 104 0-150 LDL calculated 95 0-129 CHOL/HDL 3.8 HDL CHOLESTEROL 42 40-60 Nov 19, 2021 09:20 [facility] LIVER FUNCTION Specimen Typ e: SERUM AM [place] [facility] No comment enter ed. Ordering Provid er: VIRA CRUZ Report Released Date/Time: Nov 18, 2021 08:44 PM Reporting Lab: [facility] [address] [facility] [address] Performing Lab: [facility] [place] [facility] [address] [facility] [address] PROTEIN,TOTAL 6.4 6.0-8.3 ALBUMIN 3.9 3.5-5.0 ALKALINE PHOSPHATASE 86 40-150 AST 20 5-34 ALT 31 <6-55 BILIRUBIN, TOTAL 0.9 0.2-1.2 Nov 19, 2021 [facility] BASIC METABOLIC Specimen Type: SERUM 09:20 AM [place] [facility] PANEL (fasting) No comment enter ed. Ordering Provid er: VIRA CRUZ Report Released Date/Time: Nov 18, 2021 08:44 PM Reporting Lab: [facility] [place] [facility] [address] [facility] [address] Performing Lab: [facility] [address] [facility] [address] UREA NITROGEN 18 7-25 GLUCOSE 117 H 65-100 SODIUM 140 135-145 POTASSIUM 4.5 3.5-5.0 CHLORIDE 103 100-110 CO2 27 20-30 CREATININE, Serum 0.91 0.50-1.40 eGFR(CKD-EPI 2020) 89 >60 Nov 19, 2021 09:20 [facility] IRON & TIBC PANEL Specimen T ype: SERUM AM [place] [facility] No comment enter ed. Ordering Provid er: VIRA CRUZ Report Released Date/Time: Nov 18, 2021 08:49 PM Reporting Lab: [facility] [place] [facility] [address] [facility] [address] Performing Lab: [facility] [place] [facility] [address] [facility] [address] TIBC 246 204-475 IRON 248 H 40-160 Transferrin Saturation 101.0 H 20.0-50 .0 Nov 19, 2021 09:20 [facility] CBC AND DIFF Specimen Typ e: BLOOD AM [place] [facility] (AUTO) No comment enter ed. Ordering Provid er: VIRA CRUZ Report Released Date/Time: Nov 18, 2021 08:44 PM Reporting Lab: [facility] [address] [facility] [address] Performing Lab: [facility] [address] [facility] [address] WBC 7.38 4.50-11.00 RBC 5.07 4.23-5.66 HGB 15.8 12.8-17 HCT 46.6 39.2-50.4 MCV 91.9 82-99 MCHC 33.9 30.8-35.1 PLT 179 140-360 RDW-CV 12.2 12.0-16.0 Pope, Abs 0.60 0.30-1.10 MCH 31.2 26.2-32.6 Neut % 66.0 Lymph % 23.7 Pope % 8.1 Eos % 1.4 Baso % 0.7 Neut, Abs 4.87 2.20-7.60 Lymph, Abs 1.75 1.00-3.20 Eos, Abs 0.10 0.03-0.44 Baso, Abs 0.05 0.01-0.13 Immature Gran % 0.1 Immature Gran, Abs 0.01 0.00-0.06 Vital Signs: All taken on the encounter date This section contains inpatient and outpatient Vital Signs collected on the date of the Encounter. Date/Time Temperature Pulse Blood Respiratory SP02 Pain Height Weight Luis dy Source Pressure Rate Mass Index Nov 19, 97.5 F 103 130/77 16 /min 95 % 0 234.9 33 [place] 2021 08:23 /min mm[Hg] lb CNTRL AM [facility] Social History: Smoking Status (Most current) and Tobacco Use (All prior to encounter date) This section includes the most current, and the historical, smoking and tobacco-related health factors from the ME facility where the Encounter took place.Current Smoking Status This section includes the most current smoking, or tobacco-related health factor, from the ME facility where the Encounter took place. Date/Time Current Smoking Status Comment Facility Oct 23, 2021 08:00 AM VA-TOBACCO USER EVERY DAY [facility] Tobacco Use History This section includes a history of the smoking, or tobacco- related health factors, that were collected on or before the date of the Encounter. The data comes from the ME facility where the Encounter took place. 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 [facility] [place] [facility] Oct 23, 2021 08:00 VA-TOBACCO USE MED NO [facility] AM [place] [facility] Oct 23, 2021 08:00 VA-TOBACCO USER EVERY DAY [facility] [place] [facility] Oct 29, 2020 10:00 VA-TOBACCO DOESNT USE WI VA C NTRL WSTRN AM 30 MIN WAKEUP [place] [facility] Oct 29, 2020 10:00 VA-TOBACCO USE 30 YEARS VA CN TRL [facility]STR[facility] AM OR MORE [place] [facility] Oct 29, 2020 10:00 VA-TOBACCO USE ADVICE [facility] AM [place] [facility] Oct 29, 2020 10:00 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 VA CNT RL WSTRN AM YES [facility] Oct 29, 2020 10:00 VA-TOBACCO USE MED NOTIFY [facility] Oct 29, 2020 10:00 VA-TOBACCO USER EVERY DAY [facility] AM [place] [facility] Oct 10, 2019 11:00 VA-TOBACCO FORMER USER VA CNT RL [facility]STRN AM [place] [facility] Oct 10, 2019 11:00 VA-TOBACCO QUIT < 1 YEAR VA C NTRL WSTR[facility] AM [place] [facility] Oct 26, 2018 07:55 VA-TOBACCO USE > 15 LESS VA C NTRL WSTRN AM THAN 30 YEARS [place] [facility] Oct 26, 2018 07:55 VA-TOBACCO USE ADVICE [facility] AM [place] [facility] Oct 26, 2018 07:55 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 [facility] AM [place] [facility] Oct 26, 2018 07:55 VA-TOBACCO USE MED NO [facility] AM [place] [facility] Oct 26, 2018 07:55 VA-TOBACCO USE WI 30 MIN VA C NTRL WSTRN AM OF WAKEUP [place] [facility] Oct 26, 2018 07:55 VA-TOBACCO USER EVERY DAY [facility] [place] [facility] Aug 04, 2017 08:53 CURRENT SMOKER [facility] N AM [place] [facility] Aug 04, 2017 08:53 V1-PT DECLINES REF TO [facility] CN[facility] AM TOBACCO CESS PRGM [place] Aug 04, 2017 08:53 V1-PT DECLINES TOBACCO VA CNT RL [facility]N AM CESSATION MEDS [place] [facility] Aug 04, 2017 08:53 V1-PT THINKING ABOUT QUIT [facility] AM TOBACCO USE [place] [facility] Jan 31, 2017 09:51 QUIT TOBACCO USE IN PAST VA C NTRL WSTRN AM YEAR 31 days [place] [facility] Jan 26, 2016 08:36 CURRENT SMOKER [facility] N AM [place] [facility] Jan 26, 2016 08:36 V1-PT DECLINES REF TO VA CNTR L [facility] AM TOBACCO CESS [facility] [place] [facility] Jan 26, 2016 08:36 V1-PT DECLINES TOBACCO VA CNT RL [facility] AM CESSATION MEDS [place] [facility] Jan 26, 2016 08:36 V1-PT THINKING ABOUT QUIT [facility] AM TOBACCO USE [place] [facility] Feb 20, 2015 10:25 QUIT TOBACCO USE IN PAST VA C NTRL WSTRN AM YEAR [place] [facility] June 17, 2014 07:37 CURRENT SMOKER [facility] N AM Reports being an off and on smo ker -cigarettes [facility] June 17, 2014 07:37 V1-PT DECLINES REF TO VA CNTR L [facility] AM TOBACCO CESS [facility]GM [place] [facility] June 17, 2014 07:37 V1-PT DECLINES TOBACCO VA CNT RL [facility] AM CESSATION MEDS [place] [facility] June 17, 2014 07:37 V1-PT THINKING ABOUT QUIT [facility] AM TOBACCO USE [place] [facility] Sep 14, 2011 09:51 CURRENT SMOKER [facility] AM less than a pack a day [place] [facility] Sep 14, 2011 09:51 V1-PT DECLINES REF TO VA CNTR L [facility] AM TOBACCO CESS [facility]GM [place] [facility] Sep 14, 2011 09:51 V1-PT DECLINES TOBACCO VA CNT RL [facility] AM CESSATION MEDS [place] [facility] Sep 14, 2011 09:51 V1-PT THINKING ABOUT QUIT [facility] AM TOBACCO USE [place] [facility] Mar 09, 2010 09:32 CURRENT SMOKER VA CN[facility] N AM 1 ppd [place] [facility] Mar 09, 2010 09:32 V1-PT DECLINES TOBACCO VA CNT RL [facility]STRN AM CESSATION MEDS [place] [facility] Mar 09, 2010 09:32 V1-PT REF TO NON-VA [facility] AM TOBACCO CESS [facility] [place] [facility] Mar 09, 2010 09:32 V1-PT THINKING ABOUT QUIT VA CN[facility] AM TOBACCO USE [place] [facility] Sep 29, 2009 02:07 V1-PT DECLINES REF TO VA CNTR L [facility] PM TOBACCO CESS [facility] [place] [facility] Sep 29, 2009 02:07 V1-PT DECLINES TOBACCO VA CNT RL [facility]STRN PM CESSATION MEDS [place] [facility] Sep 29, 2009 02:07 V1-PT NOT INTERESTED IN VA CN TRL WSTRN PM QUIT TOBACCO USE [place] [facility] Jan 29, 2009 11:00 CURRENT SMOKER VA CN[facility]L WSTR N AM 1 ppd [place] [facility] Jan 29, 2009 11:00 V1-PT DECLINES TOBACCO VA CNT RL [facility]STR[facility] AM CESSATION MEDS [place] [facility] Jan 29, 2009 11:00 V1-PT READY TO QUIT VA CN[facility] AM TOBACCO USE [place] [facility] Mar 17, 2005 08:36 CURRENT SMOKER VA CN[facility]STR N AM [place] [facility] Encounter Notes: All associated encounter notes This section contains the clinical notes associated to the Encounter. Date/Time Encounter Note(s) Provider Source Dec 28, 2021 09:14 LETTERS: VIRA CRUZ [facility] N AM [facility] TITLE: PATIENT LETTER (T) [facility] [place] [facility] STANDARD TITLE: LETTERS DATE OF NOTE: DEC 28, 2021@09:14 ENTRY DATE: DEC 28, 2021@09:14:24 AUTHOR: VIRA CRUZ EXP COSIGNER: URGENCY: STATUS: COMPLETED [facility] Toll Free Number Primary Care Telephone Assistance can be reached at extension [phone] [facility] scheduling can be reac hed at extension [phone] [facility] scheduling can be lyla ched at ext [phone] BRAD CUENCA [address] [place], [place], [address] Dear , Primary care team reviewed your recent CT chest. 1. Stable changes of mild/moderate chronic lung disease with a stable 1-2 mm calcified granuloma in the right lower lobe 2. Presence of a partially visualized right sepideh l cyst that may have a small calcification along its margin 3. Recommend follow-up chest CT as determined by the patient's clinica l history and clinical findings This is a copy for your own information and also to share with any other provider involved in your care. Sincerely, Your Primary Care Team [facility] [address] [facility] [address] [place] [address] [place] [address] [facility] [address] [place] [address] [place] [address] [facility] [address] [facility] [place] [id number] [place] [address] [phone] Nov 19, 2021 10:17 LETTERS: VIRA CRUZ CNTRL WSTR N [facility] TITLE: PATIENT LETTER (T) [facility] STANDARD TITLE: LETTERS DATE OF NOTE: NOV 19, 2021@10:17 ENTRY DATE: NOV 19, 2021@10:17:09 AUTHOR: VIRA CRUZ EXP COSIGNER: URGENCY: STATUS: COMPLETED [facility] Toll Free Number Primary Care Telephone Assistance can be reached at extension [phone] [facility] scheduling can be reac hed at extension [phone] [facility] scheduling can be lyla ched at ext [phone] BRAD CUENCA [address] [place], [place], [address] Dear , Primary care team reviewed your recent test Hemoglobin A1c was 5.8 that means your sugar has been under good control. Complete blood count was within normal range. Your ferritin level was elevated at 299 it shoul d be between 25 and 50 you should schedule an appointment for phlebotomy at [facility]. Here total cholesterol was 158 LDL 95 HDL was 42 which is good. This is a copy for your own information and also to share with any other provider involved in your care. Sincerely, Your Primary Care Team [facility] [address] [facility] [address] [place] [address] [place] [address] [phone] [facility] [address] [place] [address] [place] [address] [phone] [facility] [address] [facility],[address] [place] [phone] [place] [address] Nov 19, 2021 08:38 PHYSICIAN NOTE: VIRA CRUZ CNTRL WSTR N LOCAL TITLE: MD DIANN Juárez [facility] STANDARD TITLE: PHYSICIAN NOTE DATE OF NOTE: NOV 19, 2021@08:38 ENTRY DATE: NOV 19, 2021@08:38:36 AUTHOR: VIRA CRUZ EXP COSIGNER: URGENCY: STATUS: COMPLETED Patient Name: BRAD CUENCA VITALS: Patient temperature: 97.5 F [36.4 C] (11/19/2021 08:23) Blood pressure: 130/77 (11/19/2021 08:23) Patient height: 71 in [180.3 cm] (06/17/2014 07: 32) Patient weight: 234.9 lb [106.55 kg] (11/19/2021 08:23) Patient BMI: BMI: 32.8 Patient pulse: 103 (11/19/2021 08:23) Patient respiration: 16 (11/19/2021 08:23) Pain Ratin (11/19/2021 08:23) Active VA Medications: Active Outpatient Medicat ions (including Supplies): Active Outpatient Medications Status 1) ALBUTEROL 90MCG (CFC-F) 200D ORAL INHL INHALE 2 PUFFS ACTIVE BY MOUTH FOUR TIMES DAILY NEEDED FOR BREATHI NG 2) FLUTICAS 250/SALMETEROL 50 INHL DISK 60 INHAL E 1 PUFF ACTIVE BY MOUTH TWICE DAILY FOR BREATHING - RINSE MOUT H AFTER USE 3) IBUPROFEN 600MG TAB TAKE ONE TABLET BY MOUTH THREE ACTIVE TIMES A DAY TAKE WITH FOOD; FOR PAIN/INFLAMMATION/SWELLING 4) SILDENAFIL CITRATE 100MG TAB TAKE ONE TABLET BY MOUTH ACTIVE ONCE A WEEK TAKE 1 HOUR PRIOR TO SEXUAL ACTIVITY (NOTE NEW TABLET STRENGTH) TAKE AT LEAST 12 HOURS APART FROM TAMULOSIN 5) TIOTROPIUM 2.5MCG/ACTUAT 60D ORAL INHL INHALE 2 PUFFS ACTIVE BY MOUTH ONCE DAILY Remote Medications: No Active Remote Medications for this patient HPI: 71-year-old patient with history of smoking , emphysema, BPH, obesity, hemochromatosis came today for his 6-month [facility] w-up appointment. 1. Smoking and emphysema patient said he has bee n using albuterol, Wixela, Spiriva on regular basis his last CT sca n was done December 2020 and there was Intervale clearing of previously seen 3 mm right upper lobe nodule. There were other chronic sma ll nodules mild to moderate emphysema recommendation was to repeat his CT scan in 1 year whic h is due now I would request CT of the chest Again was counseled to quit the smoking patient notes not ready. 2. BPH patient has been prescribed finasteride b ut he stopped taking it have frequent urination. 3. Erectile dysfunction he is happy with sildena arlene. 4. Hemochromatosis patient has not had phlebotom y his last ferritin was in April and was 135. Going for lab work today. 5. Obesity with BMI of 32.8 and impaired fasting glucose recent lab work pending Review of system denies any chest pain or chest discomfort. No significant changes breathing. No significant GI issues Urinary issues including frequency. On examination: patient is a lert and oriented X3 vitals are stable, He is in no apparent distress. CVS: regular rate and rhythm Lungs: clear to auscultation ABD: Benign EXT: no edema. Assessment/plan: 1. Emphysema and contin uous smoking continue all the inhalers was counseled to completely quit smoking CT scan was requested 2. BPH I have prescribed finasteride and was dexter d to continue for at least 6 months also tamsulosin is being renewed. 3. Erectile dysfunction using Viagra and doing o javier. 4. Obesity no significant change in his weight was counseled for low-carb diet and exercise. 5. Hemochromatosis patient is going for lab work today that include ferritin phlebotomy was recommended he is going to [facility]. Follow-up in 6 months Medication Reconciliation: Outpatient: Has the patient been taking medications as docu mented in the EMLR? YES: The patient has been taking medications as documented in the EMLR. Essential Medication List for Review used to co mplete this medication reconciliation. INCLUDED IN THIS LIST: Alphabetical list of act alonso outpatient prescriptions dispensed from this ME (local) an d dispensed from another ME or [facility] facility (remote) as well as inpatien t orders (local, pending and active), local clinic medications, locally documented non-VA medications, and local prescriptions that have or been discontinued in the past 90 days. - All changes in medications, including all non -VA/Herbal/OTC medications were entered into CPRS. - If there were any medications the patient qasim uld no longer take, they were discontinued. - The patient/caregiver was instructed to updat e this list, discard old lists, and take this list to the next appointme nt, whether with a VA or non-VA provider. /natalie/ VIRA CRUZ MD STAFF PHYSICIAN Signed: 11/19/2021 09:04 Nov 19, 2021 08:26 PREVENTIVE MEDICINE NURSING NOTE: RAFAEL LEDEZMA ME CNTRL WSTRN AM LOCAL TITLE: CLINICAL REMINDERS/NURSING [place] [facility] STANDARD TITLE: PREVENTIVE MEDICINE NURSING NOTE DATE OF NOTE: NOV 19, 2021@08:26 ENTRY DATE: NOV 19, 2021@08:26:08 AUTHOR: YOHANNES LEDEZMA EXP COSIGNER: URGENCY: STATUS: COMPLETED Advance Directive Screen: Patient does not have a completed advance direc tive on file at any facility, VA or outside. S/he is not interested in completing one at this time. The patient received education about Advance Di rectives and written notification of his/her rights. Depression Screening: Perform PHQ-2 A PHQ-2 screen was performed. The score was 2 w hich is a negative screen for depression. Over the past two weeks, how often have you bee n bothered by the following problems? 1. Little interest or pleasure in doing things Several days 2. Feeling down, depressed, or hopeless Several days Relationship Health & Safety Screen: Environment is safe to proceed INFORMED CONSENT TO SCREEN & DOCUMENT: Individual consents to documentation? Yes Individual consents to proceed with screening? Yes PRIMARY SCREEN: In the past 12 months, how often did a current or former intimate partner (e.g., boyfriend, girlfriend, , , se xual partner): Scream or curse at you: Never Insult or talk down to you: Never Threaten you with harm: Never Physically hurt you: Never In the past 12 months, how often did a current or former intimate partner force or pressure you to have sexual co ntact against your will, or when you were unable to say no? Never PRIMARY SCREEN RESULTS: The individual denied all forms of IPV above (i .e., answered never to all 5 items above). ??The HITS tool is US copyright protected by Cem Cantu MD, and the user has full rights to use it throughout the [employer] system. DISPOSITION: Provided general IPV education. Sexual Orientation: The patient thinks of their sexual orientation as: Straight or Heterosexual /es/ YOHANNES LEDEZMA LPN LICENSED PRACTICAL NURSE Signed: 11/19/2021 08:31
--- OUTSIDE RECORDS SUMMARY | 2021-12-29 17:15 | XMS_ITS | Encounter Summary ---
:1950 Author Organization [facility] rs Address [address] [place] [address] Support Name Relationship Address Phone MARIAN CABRERA Unavailable [address] [place]ES [phone] MARIAN CABRERA Unavailable [address] [place] [address] Insurance Providers: All historical and current Section [...] MEDICARE MEDICARE PART Jul 15, PART A [id number] BANG PATIENT (WNR) (M) A 2013 90A 4 BRAD PALACIOS MEDICARE MEDICARE PART Jul 15, PART B [id number] BANG PATIENT (WNR) (M) B 2013A 4 BRAD PALACIOS Selected Encounter This section includes the information on record at [facility] for the Encounter. Date/Time Encounter Type Encounter Reason Provider Source Description Oct 23, 2021 OFFICE O/P EST PRIMARY ICD-10-CM Z71.89 CORIN LOVE I 08:00 AM MINIMAL PROB CARE/MEDICINE Other specified SSA A counseling with Provider Comments: Counseling,Other Specified IHE Encounter Template Text not used by ME Assessments - Encounter Diagnoses This section includes the primary and secondary diagnoses documented for the Encounter. Date/Time Primary/Secondary Diagnosis Name Provider Source Diagnosis Oct 23, 2021 PRIMARY Other specified CORIN LOVE [facility] TRN 08:56 AM counseling RC A [place] [facility] Oct 23, 2021 SECONDARY Encounter for CORIN LOVE [facility] N 08:56 AM immunization RC A [facility] Plan of Treatment: Future Appointments (+ 6 [...] Appointment Type Appointment Facili ty Name Oct 26, 2021 01:00 PM AMBULATORY [facility] Nov 19, 2021 08:30 [facility] Dec 24, 2021 01:00 PM AMBULATORY - NONE [facility] Feb 23, 2022 08:30 AM AM[facility]IC[facility] Lab Results: +/- 30 days of [...] Interpretation Reference Range Comment Nov 19, 2021 [facility] HEMOGLOBIN A1C Specimen Type: BLOOD 09:20 AM [facility] PANEL Comment: Values obtained from [...] Nov 18, 2021 08:44 PM Reporting Lab: [address] [address] Performing Lab: [address] [place] [address] HEMOGLOBIN A1C 5.8 H 4.0-5.6 Nov 19, 2021 09:20 AM [facility] [place] FERRITIN Specimen Type: [facility] No comment enter ed. Ordering Provid er: VIRA CRUZ Report Released Date/Time: Nov 18, 2021 08:49 PM Reporting Lab: [facility] [place] [facility] [address] [facility] [address] Performing Lab: [facility] [place] [facility] [address] [facility] [address] FERRITIN 299.9 20-300 Nov 19, 2021 [facility] LIPID PANEL FASTING Specimen Ty pe: SERUM 09:20 AM [place] [facility] No comment enter ed. Ordering Provid er: VIRA CRUZ Report Released Date/Time: Nov 18, 2021 08:44 PM Reporting Lab: [facility] [place] [facility] [address] [facility] [address] Performing Lab: [facility] [place] [facility] [address] [facility] [address] CHOLESTEROL 158 <7-199 TRIGLYCERIDE 104 0-150 LDL calculated 95 0-129 CHOL/HDL 3.8 HDL CHOLESTEROL 42 40-60 Nov 19, 2021 09:20 [facility] LIVER FUNCTION Specimen Typ e: SERUM AM [place] [facility] No comment enter ed. Ordering Provid er: VIRA CRUZ Report Released Date/Time: Nov 18, 2021 08:44 PM Reporting Lab: [facility] [place] [facility] [address] [facility] [address] Performing Lab: [facility] [place] [facility] [address] [facility] [address] PROTEIN,TOTAL 6.4 6.0-8.3 ALBUMIN 3.9 3.5-5.0 ALKALINE PHOSPHATASE 86 40-150 AST 20 5-34 ALT 31 <6-55 BILIRUBIN, TOTAL 0.9 0.2-1.2 Nov 19, 2021 [facility] BASIC METABOLIC Specimen Type: SERUM 09:20 AM [place] [facility] PANEL (fasting) No comment enter ed. Ordering Provid er: [email or web address] Report Released Date/Time: Nov 18, 2021 08:44 PM Reporting [facility] [place] [facility] [address] [facility] [address] Performing Lab: [facility] [place] [facility] [address] [facility] [address] UREA NITROGEN 18 7-25 GLUCOSE 117 H 65-100 SODIUM 140 135-145 POTASSIUM 4.5 3.5-5.0 CHLORIDE 103 100-110 CO2 27 20-30 CREATININE, Serum 0.91 0.50-1.40 eGFR(CKD-EPI 2020) 89 >60 Nov 19, 2021 09:20 [facility] IRON & TIBC PANEL Specimen T ype: SERUM AM [place] [facility] No comment enter ed. Ordering Provid er: [email or web address] Report Released Date/Time: Nov 18, 2021 08:49 PM Reporting Lab: [facility] [place] [facility] [address] [facility] [address] Performing Lab: [facility] [place] [facility] [address] [facility] [address] TIBC 246 204-475 IRON 248 H 40-160 Transferrin Saturation 101.0 H 20.0-50 .0 Nov 19, 2021 09:20 [facility] CBC AND DIFF Specimen Typ e: BLOOD AM [place] [facility] (AUTO) No comment enter ed. Ordering Provid er: VIRA CRUZ Report Released Date/Time: Nov 18, 2021 08:44 PM Reporting Lab: [facility] [place] [facility] [address] [facility] [address] Performing Lab: [facility] [place] [facility] [address] [facility] [address] WBC 7.38 4.50-11.00 RBC 5.07 4.23-5.66 HGB 15.8 12.8-17 HCT 46.6 39.2-50.4 MCV 91.9 82-99 MCHC 33.9 30.8-35.1 PLT 179 140-360 RDW-CV 12.2 12.0-16.0 Webster, Abs 0.60 0.30-1.10 MCH 31.2 26.2-32.6 Neut % 66.0 Lymph % 23.7 Webster % 8.1 Eos % 1.4 Baso % 0.7 Neut, Abs 4.87 2.20-7.60 Lymph, Abs 1.75 1.00-3.20 Eos, Abs 0.10 0.03-0.44 Baso, Abs 0.05 0.01-0.13 Immature Gran % 0.1 Immature Gran, Abs 0.01 0.00-0.06 Immunizations: All administered on the encounter date This section contains immunizations associated to the Encounter. Immunization Series Date Issued Reaction Comments INFLUENZA VACCINE, QUADRIVALENT, ADJUVANTED Oct 23 Social History: Smoking Status (Most current) and [...] Facility Oct 23, 2021 08:00 AM VA-TOBACCO DOESNT USE WI V A CN[facility]L [facility] [place] 30 MIN [facility] Tobacco Use History This section includes a history of the smoking, or tobacco- related health factors, that were collected on or before the date of the Encounter. The data comes from the [place] facility where the Encounter took place. Date/Time Smoking Status/Tobacco Comment Facility Use Oct 23, 2021 08:00 VA-TOBACCO USE 30 YEARS [facility] CN T[facility] AM OR MORE [place] [facility] Oct 23, 2021 08:00 VA-TOBACCO USE ADVICE [facility] AM [place] [facility] Oct 23, 2021 08:00 VA-TOBACCO USE REPAIR MECHANIC NO [facility] [place] [facility] Oct 23, 2021 08:00 VA-TOBACCO USE MED NO [facility] [place] [facility] Oct 23, 2021 08:00 VA-TOBACCO USER EVERY DAY [facility] [place] [facility] Oct 29, 2020 10:00 VA-TOBACCO DOESNT USE WI VA C N[facility]L [facility] AM 30 MIN [place] [facility] Oct 29, 2020 10:00 VA-TOBACCO USE 30 YEARS VA CN T[facility] AM OR [facility] Oct 29, 2020 10:00 VA-TOBACCO USE ADVICE [facility] AM [place] [facility] Oct 29, 2020 10:00 VA-TOBACCO USE REPAIR MECHANIC [facility] AM YES [facility] Oct 29, 2020 10:00 VA-TOBACCO USE MED NOTIFY [facility] AM PROVIDER [facility] Oct 29, 2020 10:00 VA-TOBACCO USER EVERY DAY [facility] [place] [facility] Oct 10, 2019 11:00 VA-TOBACCO FORMER USER [facility] Oct 10, 2019 11:00 VA-TOBACCO QUIT < 1 YEAR VA C [facility] AM [place] [facility] Oct 26, 2018 07:55 VA-TOBACCO USE > 15 LESS VA C NTRL WSTRN AM THAN 30 YEARS [facility] Oct 26, 2018 07:55 VA-TOBACCO USE ADVICE [facility] AM [place] [facility] Oct 26, 2018 07:55 VA-TOBACCO USE REPAIR MECHANIC NO [facility] AM [facility] Oct 26, 2018 07:55 VA-TOBACCO USE MED NO [facility] AM [place] [facility] Oct 26, 2018 07:55 VA-TOBACCO USE WI 30 MIN VA C N[facility]L [facility] AM OF [facility] [facility] Oct 26, 2018 07:55 VA-TOBACCO USER EVERY DAY [facility] AM [place] [facility] Aug 04, 2017 08:53 CURRENT SMOKER [facility] AM [place] [facility] Aug 04, 2017 08:53 V1-PT DECLINES REF TO [facility] AM TOBACCO CESS PRGM [facility] Aug 04, 2017 08:53 V1-PT DECLINES TOBACCO [facility] AM CESSATION MEDS [facility] Aug 04, 2017 08:53 V1-PT THINKING ABOUT QUIT [facility] AM TOBACCO USE [place] [facility] Jan 31, 2017 09:51 QUIT TOBACCO USE IN PAST VA C NTRL WSTRN AM YEAR 31 days [facility] Jan 26, 2016 08:36 CURRENT SMOKER [facility] AM [place] [facility] Jan 26, 2016 08:36 V1-PT DECLINES REF TO [facility] AM TOBACCO CESS PRGM [place] Jan 26, 2016 08:36 V1-PT DECLINES TOBACCO VA CNT [facility] AM CESSATION MEDS [place] [facility] Jan 26, 2016 08:36 V1-PT THINKING ABOUT QUIT [facility] AM TOBACCO USE [place] [facility] Feb 20, 2015 10:25 QUIT TOBACCO USE IN PAST VA C NTRL W[facility]N AM YEAR [place] [facility] June 17, 2014 07:37 CURRENT SMOKER [facility] N AM Reports being an off and on smo ker -cigarettes [place] [facility] June 17, 2014 07:37 V1-PT DECLINES REF TO [facility] AM TOBACCO CESS PRGM [place] [facility] June 17, 2014 07:37 V1-PT DECLINES TOBACCO VA CNT [facility] AM CESSATION MEDS [place] [facility] June 17, 2014 07:37 V1-PT THINKING ABOUT QUIT [facility] AM TOBACCO USE [place] [facility] Sep 14, 2011 09:51 CURRENT SMOKER [facility] AM less than a pack a day [place] [facility] Sep 14, 2011 09:51 V1-PT DECLINES REF TO [facility] AM TOBACCO CESS PRGM [place] [facility] Sep 14, 2011 09:51 V1-PT DECLINES TOBACCO VA CNT [facility] AM CESSATION MEDS [place] [facility] Sep 14, 2011 09:51 V1-PT THINKING ABOUT QUIT [facility] AM TOBACCO USE [place] [facility] Mar 09, 2010 09:32 CURRENT SMOKER [facility] N AM 1 ppd [place] [facility] Mar 09, 2010 09:32 V1-PT DECLINES TOBACCO VA CNT [facility] AM CESSATION MEDS [place] [facility] Mar 09, 2010 09:32 V1-PT REF TO NON-VA [facility] AM TOBACCO CESS PRGM [place] [facility] Mar 09, 2010 09:32 V1-PT THINKING ABOUT QUIT [facility] AM TOBACCO USE [place] [facility] Sep 29, 2009 02:07 V1-PT DECLINES REF TO [facility] PM TOBACCO CESS PRGM [place] [facility] Sep 29, 2009 02:07 V1-PT DECLINES TOBACCO VA CNT [facility] PM CESSATION MEDS [place] [facility] Sep 29, 2009 02:07 V1-PT NOT INTERESTED IN VA CN TRL [facility] PM QUIT TOBACCO USE [place] [facility] Jan 29, 2009 11:00 CURRENT SMOKER VA [facility] N AM 1 ppd [place] [facility] Jan 29, 2009 11:00 V1-PT DECLINES TOBACCO VA [facility] AM CESSATION MEDS [place] [facility] Jan 29, 2009 11:00 V1-PT READY TO QUIT [facility] AM TOBACCO USE [place] [facility] Mar 17, 2005 08:36 CURRENT SMOKER ME CN[facility] N AM [place] [facility] Encounter Notes: All associated encounter notes This section contains the clinical notes associated to the Encounter. Date/Time Encounter Note(s) Provider Source Oct 23, 2021 08:17 AM PRIMARY CARE OUTPATIENT NOTE: [facility] MARYA LOVE [facility] LOCAL TITLE: AMBULATORY/OUTPATIENT CARE NOTE [facility] STANDARD TITLE: PRIMARY CARE OUTPATIENT NOTE DATE OF NOTE: OCT 23, 2021@08:17 ENTRY DATE: OCT 23, 2021@08:18:03 AUTHOR: LIZETH LOVE EXP COSIGNER: URGENCY: STATUS: COMPLETED F: Nursing visit: Ear Irrigation D: here for bilateral ear irrigation per PCP Anthony. has been using ear drops/he had at home. Upon examination of both ears-large amts of soft cerumen noted. A: Both ears irrigated with warm tap water via s yringe. Small amounts were removed from both ears. Both ear drums still covered by dark yellow/ines shiny cerumen. started to fill lightheaded. Irrigation stopped. reclined in chair. Vitals taken. BP 147/93, HR 73 RR 18 O2 9 6%. After a few minites states he felt edis r. offered water. told that we could t ry again next week. [place] will return on Tuesday. left primary care ad rosita. Hepatitis B Serology/Immunization: The patient declines to have HBV serology done. Reason: refused The patient declines to receive HBV immunizatio n. Reason: refused Tobacco Use Screening: The patient uses tobacco every day. The patient does not use tobacco within 30 magda ismael of waking up. The patient has been smoking or using tobacco f or thirty years or more. Patient was advised to quit smoking and/or usin g tobacco. Discussion with patient included: - Quitting smoking or tobacco use is one of the most important things you can do to protect and improve your h ealth and [place] has the resources to support you. - Set a quit date when you are ready to quit. - Get support from your family and friends. - Review any past quit attempts- What helped? W hat didn't? - On the day you plan to quit, get rid of all c igarettes and tobacco products from your home, car or work. - Using a combination of behavioral counseling or other support strategies and FDA-approved cessation medicatio ns is the most effective way to ensure success in quitting. Patient was offered Behavioral Counseling and o ther support strategies to assist with quitting. Discussion with patient i ncluded: - Behavioral counseling or other support max dominguez greatly increases your chances of successfully quitting smoking or tobacco use by helping you develop a quit plan and providing support and other strategies to make behavioral changes to help you quit. - [facility] has a number of behavioral counseling opti ons to help you with quitting, including: * Provide information about the facility smokin g or tobacco use treatment options or clinics * [facility]'s national quitline, 0-247-PKYC-VET, with counseling available Tuesday-Tuesday The patient was not interested in receiving add itional information about how to use the treatment options oresets chinchilla Patient was offered FDA-approved cessation medi cations. Discussion with patient included: - Medications for Nicotine replacement therapy such as the patch, gum or lozenge, and other medications cotto ch as varenicline or bupropion, can play an important role in the initial weeks and months after you quit smoking or tobacco us e. - Medications help with cravings and withdrawal symptoms and they greatly increase your chances of successfully q uitting. The patient was not interested in a prescriptio n for tobacco cessation medications. Influenza Immunization: The patient was given the influenza VIS which l ists the benefits and side effects of the vaccine and which reviews the ri sks of not receiving the flu vaccine. The VIS was reviewed with the patient and they were given an opportunity to ask questions. The patient was p rovided education on how to decrease the risk of influenza infection [facility] distancing and use of good hand hygiene. The patient denied an y prior severe reaction to the flu vaccine or its components. The patient gave verbal consent to receive the vaccine. The seasonal influenza vaccine VIS given to the patient: VIS version date Sep. The patient received seasonal influenza vaccine today - Influenza, Quadrivalent, Adjuvanted (Fluad) 0.5 ml IM toda y in Left Deltoid. 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
--- OUTSIDE RECORDS SUMMARY | 2021-12-29 17:15 | XMS_ITS ---
:1950 Author Organization Department [facility] rs Address [address] [place] [id number] Support Name Relationship Address Phone MARIAN CABRERA Unavailable [address] [place] [address] MARIAN CABRERA Unavailable [address] [place] [address] Insurance Providers: All historical and current Section [...] MEDICARE MEDICARE PART Jul 15, PART A [id number] BANG PATIENT (WNR) (M) A 2013 90A 4 BRAD PALACIOS MEDICARE MEDICARE PART Jul 15, PART B [id number] BANG PATIENT (WNR) (M) B [id number] 4 BRAD PALACIOS Selected Encounter This section includes the information on record at [place] for the Encounter. Date/Time Encounter Type Encounter Reason Provider Source Description Oct 26, 2021 OFFICE O/P EST PRIMARY ICD-10-CM Z71.89 COIRN LOVE I 01:00 PM MINIMAL PROB CARE/MEDICINE Other specified SSA A counseling with Provider Comments: Counseling,Other Specified IHE Encounter Template Text not used by [place] Assessments - Encounter Diagnoses This section includes the primary and secondary diagnoses documented for the Encounter. Date/Time Primary/Secondary Diagnosis Name Provider Source Diagnosis Oct 26, 2021 PRIMARY Other specified MADAY LOVE [place] [facility] 01:49 PM [facility] Plan of Treatment: Future Appointments (+ 6 months) and Future Tests (+/- 45 days) The Plan of Treatment section includes future care activities for the patient from all [place] treatmentfacilities. This section includes future appointments and future orders which are active, pending orscheduled.Future Appointments This section includes appointments that were scheduled to occur 6 months from the date of the Encounter, up to a maximum of 20 appointments. The data comes from all [place] treatment facilities. Appointment Date/Time Appointment Type Appointment Facili ty Name Nov 19, 2021 08:30 AM [facility] Dec 24, 2021 01:00 PM [facility] Feb 23, 2022 08:30 AM AMBULATORY - MEDICINE [facility] Lab Results: +/- 30 days of the encounter This section includes the Chemistry and Hematology Lab Results on record with [place] for the patient. Radiology Reports and Pathology Reports are provided separately, in subsequent sections.Lab Results This section contains the Chemistry/Hematology Results that were resulted 30 days before or 30 daysafter the date of the Encounter. Date/Time Source Result Type Result - Unit Interpretation Reference Range Comment Nov 19, 2021 [facility] HEMOGLOBIN A1C Specimen Type: BLOOD 09:20 AM [facility] PANEL Comment: Values obtained from A1C measurements can vary. For typical A1C assays, a reported value of 7.0 could actually be between 6.72 and 7.28 if measured by a reference method. A reported value of 9 .0 could actuall y be between 8.73 and 9.27. Ref: http://www.ngsp.org/CAPdata.asp Ordering Provid er: VIRA CRUZ Report Released Date/Time: Nov 18, 2021 08:44 PM Reporting Lab: [facility] [address] [address] Performing Lab: [facility] [address] [address] HEMOGLOBIN A1C 5.8 H 4.0-5.6 Nov 19, 2021 09:20 AM [facility] FERRITIN Specimen Type: [facility] No comment enter ed. Ordering Provid er: VIRA CRUZ Report Released Date/Time: Nov 18, 2021 08:49 PM Reporting Lab: [facility] [address] [address] Performing Lab: [facility] [address] [address] FERRITIN 299.9 20-300 Nov 19, 2021 [facility] LIPID PANEL FASTING Specimen Ty pe: [facility] 09:20 AM [facility] No comment enter ed. Ordering Provid er: VIRA CRUZ Report Released Date/Time: Nov 18, 2021 08:44 PM Reporting Lab: [place] [facility] [place] [facility] [address] [address] Performing Lab: [place] [facility] [place] [facility] [address] [address] CHOLESTEROL 158 <7-199 TRIGLYCERIDE 104 0-150 LDL calculated 95 0-129 CHOL/HDL 3.8 HDL CHOLESTEROL 42 40-60 Nov 19, 2021 09:20 [facility] LIVER FUNCTION Specimen Typ e: [facility] No comment enter ed. Ordering Provid er: VIRA CRUZ Report Released Date/Time: Nov 18, 2021 08:44 PM Reporting Lab: [facility] [address] [address] Per[facility] Lab: [facility] [place] [facility] [address] [address] PROTEIN,TOTAL 6.4 6.0-8.3 ALBUMIN 3.9 3.5-5.0 ALKALINE PHOSPHATASE 86 40-150 AST 20 5-34 ALT 31 <6-55 BILIRUBIN, TOTAL 0.9 0.2-1.2 Nov 19, 2021 [facility] BASIC METABOLIC Specimen Type: [facility] 09:20 AM [facility] PANEL (fasting) No comment enter ed. Ordering Provid er: VIRA CRUZ Report Released Date/Time: Nov 18, 2021 08:44 PM Reporting Lab: [place] [facility] [place] [facility] [address] [address] Performing Lab: [facility] [place] [facility] [address] [address] UREA NITROGEN 18 7-25 GLUCOSE 117 H 65-100 SODIUM 140 135-145 POTASSIUM 4.5 3.5-5.0 CHLORIDE 103 100-110 CO2 27 20-30 CREATININE, Serum 0.91 0.50-1.40 eGFR(CKD-EPI 2020) 89 >60 Nov 19, 2021 09:20 [facility] IRON & TIBC PANEL Specimen T ype: [facility] [place] [facility] No comment enter ed. Ordering Provid er: VIRA CRUZ Report Released Date/Time: Nov 18, 2021 08:49 PM Reporting Lab: [facility] [place] [facility] [address] [address] Performing Lab: [facility] [place] [facility] [address] [address] TIBC 246 204-475 IRON 248 H 40-160 Transferrin Saturation 101.0 H 20.0-50 .0 Nov 19, 2021 09:20 [facility] CBC AND DIFF Specimen Typ e: BLOOD AM [place] [facility] (AUTO) No comment enter ed. Ordering Provid er: VIRA CRUZ Report Released Date/Time: Nov 18, 2021 08:44 PM Reporting Lab: [facility] [place] [facility] [address] [address] Performing Lab: [facility] [place] [facility] [address] [address] WBC 7.38 4.50-11.00 RBC 5.07 4.23-5.66 HGB 15.8 12.8-17 HCT 46.6 39.2-50.4 MCV 91.9 82-99 MCHC 33.9 30.8-35.1 PLT 179 140-360 RDW-CV 12.2 12.0-16.0 [place], Abs 0.60 0.30-1.10 MCH 31.2 26.2-32.6 Neut % 66.0 Lymph % 23.7 [place] % 8.1 Eos % 1.4 Baso % 0.7 Neut, Abs 4.87 2.20-7.60 Lymph, Abs 1.75 1.00-3.20 Eos, Abs 0.10 0.03-0.44 Baso, Abs 0.05 0.01-0.13 Immature Gran % 0.1 Immature Gran, Abs 0.01 0.00-0.06 Social History: Smoking Status (Most current) and Tobacco Use (All prior to encounter date) This section includes the most current, and the historical, smoking and tobacco-related health factors from the [place] facility where the Encounter took place.Current Smoking Status This section includes the most current smoking, or tobacco-related health factor, from the [place] facility where the Encounter took place. Date/Time Current Smoking Status Comment Facility Oct 23, 2021 08:00 AM VA-TOBACCO USER EVERY DAY [place] [facility] [place] [facility] Tobacco Use History This section includes a history of the smoking, or tobacco- related health factors, that were collected on or before the date of the Encounter. The data comes from the [place] facility where the Encounter took place. 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 [facility] [place] [facility] Oct 23, 2021 08:00 VA-TOBACCO USE MED NO [facility] [place] [facility] Oct 23, 2021 08:00 VA-TOBACCO USER EVERY DAY [facility] [place] [facility] Oct 29, 2020 10:00 VA-TOBACCO DOESNT USE WI [facility] AM 30 MIN WAKEUP [place] [facility] Oct 29, 2020 10:00 VA-TOBACCO USE 30 YEARS [facility] AM OR MORE [place] [facility] Oct 29, 2020 10:00 VA-TOBACCO USE ADVICE [facility] [place] [facility] Oct 29, 2020 10:00 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 [facility] YES [place] [facility] Oct 29, 2020 10:00 VA-TOBACCO USE MED NOTIFY [facility] PROVIDER [place] [facility] Oct 29, 2020 10:00 VA-TOBACCO USER EVERY DAY [facility] Oct 10, 2019 11:00 VA-TOBACCO FORMER USER [facility] [place] [facility] Oct 10, 2019 11:00 VA-TOBACCO QUIT < 1 YEAR [facility] Oct 26, 2018 07:55 VA-TOBACCO USE > 15 LESS [facility] AM THAN 30 YEARS [facility] Oct 26, 2018 07:55 VA-TOBACCO USE ADVICE [facility] [place] [facility] Oct 26, 2018 07:55 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 [facility] Oct 26, 2018 07:55 VA-TOBACCO USE MED NO [facility] [place] [facility] Oct 26, 2018 07:55 VA-TOBACCO USE WI 30 MIN [facility] AM OF [facility] Oct 26, 2018 07:55 VA-TOBACCO USER EVERY DAY [facility] [place] [facility] Aug 04, 2017 08:53 CURRENT SMOKER [facility] Aug 04, 2017 08:53 V1-PT DECLINES REF TO [facility]ACCO [facility]ESS [facility] Aug 04, 2017 08:53 V1-PT DECLINES TOBACCO [facility] AM CESSATION MEDS [facility] Aug 04, 2017 08:53 V1-PT THINKING ABOUT QUIT [facility] TOBACCO USE [place] [facility] Jan 31, 2017 09:51 QUIT TOBACCO USE IN PAST VA C N[facility] AM YEAR 31 days [place] [facility] Jan 26, 2016 08:36 CURRENT SMOKER [facility] [place] [facility] Jan 26, 2016 08:36 V1-PT DECLINES REF TO [facility] Jan 26, 2016 08:36 V1-PT DECLINES TOBACCO [facility] Jan 26, 2016 08:36 V1-PT THINKING ABOUT QUIT [facility] TOBACCO USE [place] [facility] Feb 20, 2015 10:25 QUIT TOBACCO USE IN PAST VA C [facility] AM YEAR [place] [facility] June 17, 2014 07:37 CURRENT SMOKER [facility] AM Reports being an off and on smo ker -cigarettes [place] [facility] June 17, 2014 07:37 V1-PT DECLINES REF TO [facility] TOBACCO CESS PRGM [place] June 17, 2014 07:37 V1-PT DECLINES TOBACCO [facility] AM CESSATION MEDS [place] [facility] June 17, 2014 07:37 V1-PT THINKING ABOUT QUIT [facility] TOBACCO USE [place] [facility] Sep 14, 2011 09:51 CURRENT SMOKER [facility] AM less than a pack a day [place] [facility] Sep 14, 2011 09:51 V1-PT DECLINES REF TO [facility] TOBACCO CESS PRGM [place] Sep 14, 2011 09:51 V1-PT DECLINES TOBACCO [facility] AM CESSATION MEDS [place] [facility] Sep 14, 2011 09:51 V1-PT THINKING ABOUT QUIT [facility] TOBACCO USE [place] [facility] Mar 09, 2010 09:32 CURRENT SMOKER [facility] AM 1 ppd [place] [facility] Mar 09, 2010 09:32 V1-PT DECLINES TOBACCO [facility] AM CESSATION MEDS [place] [facility] Mar 09, 2010 09:32 V1-PT REF TO NON-VA [facility] TOBACCO CESS PRGM [place] [facility] Mar 09, 2010 09:32 V1-PT THINKING ABOUT QUIT [facility] [place] TOBACCO USE [place] [facility] Sep 29, 2009 02:07 V1-PT DECLINES REF TO [facility] PM TOBACCO CESS PRGM [place] Sep 29, 2009 02:07 V1-PT DECLINES TOBACCO [facility] PM CESSATION MEDS [place] [facility] Sep 29, 2009 02:07 V1-PT NOT INTERESTED IN [facility] PM QUIT TOBACCO USE [place] [facility] Jan 29, 2009 11:00 CURRENT SMOKER [facility] AM 1 ppd [place] [facility] Jan 29, 2009 11:00 V1-PT DECLINES TOBACCO [facility] AM CESSATION MEDS [place] [facility] Jan 29, 2009 11:00 V1-PT [facility] USE [facility] Mar 17, 2005 08:36 CURRENT SMOKER [facility]TR N AM [facility] Encounter Notes: All associated encounter notes This section contains the clinical notes associated to the Encounter. Date/Time Encounter Note(s) Provider Source Oct 26, 2021 01:48 PM NURSING NOTE: LIZETH LOVE [facility] LOCAL TITLE: NURSING NOTE [facility] STANDARD TITLE: NURSING NOTE DATE OF NOTE: OCT 26, 2021@13:48 ENTRY DATE: OCT 26, 2021@13:48:26 AUTHOR: LIZETH LOVE EXP COSIGNER: URGENCY: STATUS: COMPLETED F: Nursing visit: Ear Irrigation D: [facility] here for bilateral ear irrigation per PCP Annika. has been using ear drops/he had at home. Upon examination of both ears-moderate amts of soft cerumen noted. A: Both ears irrigated with warm tap water via s yringe until clear. Outer ear drums visible. left primary care ad rosita. /natalie/ LIZETH LOVE Registered Nurse Signed: 10/26/2021 13:49
--- OUTSIDE RECORDS SUMMARY | 2021-12-29 17:16 | XMS_ITS ---
:1950 Author Organization [facility] rs Address [address] [place] [id number] Support Name Relationship Address Phone MARIAN CABRERA Unavailable [address] [place] [phone] MARIAN CABRERA Unavailable [address] [place] [id number] Insurance Providers: All historical and current Section [...] MEDICARE MEDICARE PART Jul 15, PART B [id number] BANG PATIENT (WNR) (M) B 2013 90A 4 BRAD PALACIOS MEDICARE MEDICARE PART Jul 15, PART A [id number] BANG PATIENT (WNR) (M) A 2013A 4 BRAD PALACIOS Selected Encounter This section includes the information on record at [place] for the Encounter. Date/Time Encounter Type Encounter Reason Provider Source Description Jan 14, 2021 [facility] ICD-10-CM J44.9 COLLEEN MALIN KEY 09:29 AM ASSMT&MGMT 5-10 Chronic GALINDO obstructive pulmonary disease, unspecified with Provider Comments: Chronic Obstructive Pulmonary Disease, unspecified IHE Encounter Template Text not used by [place] Assessments - Encounter Diagnoses This section includes the primary and secondary diagnoses documented for the Encounter. Date/Time Primary/Secondary Diagnosis Name Provider Source Diagnosis Jan 14, 2021 PRIMARY Chronic NAEEM MALIN [facility]N 09:31 AM obstructive GALINDO [place] [facility] pulmonary disease, unspecified Plan of Treatment: Future Appointments (+ 6 months) and Future Tests (+/- 45 days) The Plan of Treatment section includes future care activities for the patient from all [place] treatmentfacilities. This section includes future appointments and future orders which are active, pending orscheduled.Future Appointments This section includes appointments that were scheduled to occur 6 months from the date of the Encounter, up to a maximum of 20 appointments. The data comes from all [place] treatment facilities. Appointment Date/Time Appointment Type Appointment Facili ty Name Jan 17, 2021 09:45 AM AMBULATORY - [place]ICINE [place] [facility] [place] [facility] May 04, 2021 09:00 AM AMBULATORY - [place]ICINE [place] [facility] [facility] Social History: Smoking Status (Most current) and Tobacco Use (All prior to encounter date) This section includes the most current, and the historical, smoking and tobacco-related health factors from the [place] facility where the Encounter took place.Current Smoking Status This section includes the most current smoking, or tobacco-related health factor, from the [place] facility where the Encounter took place. Date/Time Current Smoking Status Comment Facility Oct 29, 2020 10:00 AM VA-TOBACCO USER EVERY DAY [place] [facility] Tobacco Use History This section includes a history of the smoking, or tobacco- related health factors, that were collected on or before the date of the Encounter. The data comes from the [place] facility where the Encounter took place. 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 [place] [facility] Oct 29, 2020 10:00 VA-TOBACCO USE MED NOTIFY [place] [facility] AM PROVIDER [place] [facility] Oct 29, 2020 10:00 VA-TOBACCO USER EVERY DAY [place] [facility] [place] AM [place] [facility] Oct 10, 2019 11:00 VA-TOBACCO FORMER USER [place] RL [place] AM [place] [facility] Oct 10, 2019 11:00 VA-TOBACCO QUIT < 1 YEAR VA C NTRL [facility] AM [place] [facility] Oct 26, 2018 07:55 VA-TOBACCO USE > 15 LESS VA C NTRL WSTRN AM THAN 30 YEARS [facility] Oct 26, 2018 07:55 VA-TOBACCO USE ADVICE [place] [facility] AM [place] [facility] Oct 26, 2018 07:55 VA-TOBACCO USE 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 [facility] AM [place] [facility] Oct 26, 2018 07:55 VA-TOBACCO USE MED NO [place] [facility] AM [place] [facility] Oct 26, 2018 07:55 VA-TOBACCO USE WI 30 MIN VA C NTRL W[facility] AM OF [place] [facility] Oct 26, 2018 07:55 VA-TOBACCO USER EVERY DAY [facility] AM [place] [facility] Aug 04, 2017 08:53 CURRENT SMOKER [facility] N AM [place] [facility] Aug 04, 2017 08:53 V1-PT DECLINES REF TO [facility] CNTR L [facility] AM TOBACCO CESS [facility] Aug 04, 2017 08:53 V1-PT DECLINES TOBACCO [place] CNT [facility] AM CESSATION MEDS [facility] Aug 04, 2017 08:53 V1-PT THINKING ABOUT QUIT [facility] AM TOBACCO USE [facility] Jan 31, 2017 09:51 QUIT TOBACCO USE IN PAST VA C NTRL WSTRN AM YEAR 31 days [facility] Jan 26, 2016 08:36 CURRENT SMOKER [facility] AM [place] [facility] Jan 26, 2016 08:36 V1-PT DECLINES REF TO [facility] CN[facility] L [facility] AM [facility]BACCO [facility]ESS [facility] Jan 26, 2016 08:36 V1-PT DECLINES TOBACCO [facility] AM C[facility]ATION MEDS [facility] Jan 26, 2016 08:36 V1-PT THINKING ABOUT QUIT [facility] AM TOBACCO USE [facility] Feb 20, 2015 10:25 QUIT TOBACCO USE IN PAST VA C NTRL WSTRN AM YE[facility] June 17, 2014 07:37 CURRENT SMOKER VA CNTRL WSTR N AM Reports being an off and on smo ker -cigarettes [facility] June 17, 2014 07:37 V1-PT DECLINES REF TO [facility] CNTR L [facility] AM TOBACCO CESS [facility] [place] [facility] June 17, 2014 07:37 V1-PT DECLINES TOBACCO VA CNT RL [facility]N AM CESSATION MEDS [place] [facility] June 17, 2014 07:37 V1-PT THINKING ABOUT QUIT [facility] AM TOBACCO USE [place] [facility] Sep 14, 2011 09:51 CURRENT SMOKER VA CN[facility] N AM less than a pack a day [place] [facility] Sep 14, 2011 09:51 V1-PT DECLINES REF TO [facility] CNTR L [facility] AM TOBACCO CESS [place]GM [place] Sep 14, 2011 09:51 V1-PT DECLINES TOBACCO VA CNT RL WSTRN AM CESSATION MEDS [place] [facility] Sep 14, 2011 09:51 V1-PT THINKING ABOUT QUIT [facility] AM TOBACCO USE [place] [facility] Mar 09, 2010 09:32 CURRENT SMOKER VA CNTRL WSTR N AM 1 ppd [place] [facility] Mar 09, 2010 09:32 V1-PT DECLINES TOBACCO VA CNT RL WSTRN AM CESSATION MEDS [place] [facility] Mar 09, 2010 09:32 V1-PT REF TO NON-VA [facility] AM TOBACCO CESS PRGM [place] Mar 09, 2010 09:32 V1-PT THINKING ABOUT QUIT [facility] AM TOBACCO USE [place] [facility] Sep 29, 2009 02:07 V1-PT DECLINES REF TO VA CNTR L W[facility] PM TOBACCO CESS PRGM [place] Sep 29, 2009 02:07 V1-PT DECLINES TOBACCO VA CNT RL W[facility]N PM CESSATION MEDS [place] [facility] Sep 29, 2009 02:07 V1-PT NOT INTERESTED IN VA CN TRL WSTRN PM QUIT TOBACCO USE [place] [facility] Jan 29, 2009 11:00 CURRENT SMOKER VA CNTRL WSTR N AM 1 ppd [place] [facility] Jan 29, 2009 11:00 V1-PT DECLINES TOBACCO VA CNT RL WSTRN AM CESSATION MEDS [place] [facility] Jan 29, 2009 11:00 V1-PT READY TO QUIT [facility] AM TOBACCO USE [place] [facility] Mar 17, 2005 08:36 CURRENT SMOKER VA CNTRL WSTR N AM [place] [facility] Radiology Reports: +/- 30 days of the [...] the Encounter. The data comes from all [place] treatment facilities. Date/Time Radiology Report Provider Source Dec 22, 2020 01:[address] THORAX W/O CONT: LAURA BANGURA [place] CNT [place] APRYL BRAD CUENCA [id number] -[birth year] 9 M [facility] Exm Date: DEC 22, 2020@13:48 Req Phys: VIRA CRUZ Pat Loc: CWM/NO/P ACT 1 (Req'g Loc) Img Loc: NHM/CT Service: Unknown (Case [id number] COMPLETE) CT THORAX W/O CONT (CT Detail ed) CPT:38600 Reason for Study: CT chest Clinical History: 1. New 3 mm right upper lobe pulmonary nodule. Recommendation: Surveillance noncontrast chest CT in one year. 2. Moderately advanced emphysematous changes. Report Status: Verified Date Reported: DEC 22, 2020 Date Verified: DEC 22, 2020 Guard Lieutenant E-Sig:/ES/Laura Bangura MD Report: EXAM: CT chest without contrast HISTORY: New right upper lobe nodule follow-up COMPARISON: 11/01/2019 TECHNIQUE: Helical CT thorax from the thoracic inlet to the upper abdomen. Multiplanar reformats were included. T he tomogram was reviewed. DOSE: 6.3 CTDI vol (mGy) FINDINGS: LUNGS: The central airways are patent. Mild to moderate emphysematous changes. No cons olidation. Interval clearing of the previously seen 3 mm r ight upper lobe nodule prior exam image 8-61. Stable 1 to 2 mm right lower lobe nodules image 9-38 prior 9. Other 1-2 mm nod ule in the left lower lobe image 9-94, unchanged on current franches[place] dy image 9-47. PLEURAL SPACES: No pleural effusion. No pneumot horax. MEDIASTINUM: Normal heart size.No significant pericardial ef fusion.. Normal caliber great vessels. No suspicious mediastinal, hilar, or axillary l ymphadenopathy. LIMITED ASSESSMENT OF THE UPPER ABDOMEN: ADRENALS: No suspicious abnormality. INCIDENTAL: Right renal upper pole partially vi sualized cyst is noted. There is a 9 mm hypoattenuating focus in the right hepatic lobe image which is statistically most likely a cyst. BONES: No acute changes. Impression: Interval clearing of previously seen 3 mm right upper lobe new nodule. Other chronic small nodules noted. Mild to moderate emphysema. Recommendation: Consider surveillanc e chest CT in one year as clinically indicated. Primary Diagnostic Code: No immediate attention required Primary Interpreting Staff: Laura Bangura MD, Chief of Imaging (Guard Lieutenant ) /formerly [facility] Encounter Notes: All associated encounter notes This section contains the clinical notes associated to the Encounter. Date/Time Encounter Note(s) Provider Source Jan 14, 2021 09:29 AM PHARMACY OUTPATIENT MEDICATION MGT NOTE: NAEEM ENAMORADO CNTRL WSTRN LOCAL TITLE: PHARMACY OUTPATIENT MEDICATION NOT E GALINDO [place] [facility] STANDARD TITLE: PHARMACY OUTPATIENT MEDICATION M GT NOTE DATE OF NOTE: JAN 14, 2021@09:29 ENTRY DATE: JAN 14, 2021@09:29:28 AUTHOR: NAEEM MALIN EXP COSIGNER: URGENCY: STATUS: COMPLETED NOTIFICATION OF MEDICATION CONVERSION: FLUTICASONE/SALMETEROL (WIXELA) INHL,ORAL is the [place] first line combination inhaled corticosteroid/long-acting beta agonist inhaler. Pharmacy is notifying PCP and/or ordering provid er via this note that this patient is being converted by pharmacy protocol from BUDESONIDE/FORMOTEROL INHL,ORAL (Symbicort??) to FLUTICASONE/SALMETERO L (WIXELA) INHL,ORAL DOSING: For COPD, the approved maintenance dose of FLUTI CASONE/SALMETEROL (WIXELA) INHL,ORAL is 250/50mcg, one inhalation twice lizz ly. *COPD diagnosis noted in 01/31/17 MD Note. This patient will receive a letter in the mail informing them of this conversion with detailed instructions on how to use the new inhaler device. Please contact the Pharmacy Department with any questions. /natalie/ Naeem Malin, Pharm.D. Clinical Clay Miller Signed: 01/14/2021 09:31 Receipt Acknowledged By: * AWAITING SIGNATURE * VIRA CRUZ 01/14/2021 09:36 /es/ JOCELYN WILSON CPHT Clinical Signals Intelligence Analysis Manager
--- OUTSIDE RECORDS SUMMARY | 2021-12-29 17:16 | XMS_ITS | Encounter Summary ---
:1950 Author Organization Department [facility] rs Address [address] [place] [id number] Support Name Relationship Address Phone MARIAN CABRERA Unavailable [address] [place] [address] MARIAN CABRERA Unavailable [address] [place] [address] Insurance Providers: All historical and current Section [...] MEDICARE MEDICARE PART Jul 15, PART A [id number] BANG PATIENT (WNR) (M) A 2013 90A 4 BRAD PALACIOS MEDICARE MEDICARE PART Jul 15, PART B [id number] BANG PATIENT (WNR) (M) B 2013 4 BRAD PALACIOS Selected Encounter This section includes the information on record at [place] for the Encounter. Date/Time Encounter Type Encounter Description Reason Provider Source Feb 27, 2021 12:00 Outpatient Encounter EVENT (HISTORICAL) AM IHE Encounter Template Text not used by [place] Plan of Treatment: Future Appointments (+ 6 [...] 20 appointments. The data comes from all [place] treatment facilities. Appointment Date/Time Appointment Type Appointment Facili ty Name May 04, 2021 09:00 AM AMBULATORY - MEDICINE [place] [facility] [place] [facility] Social History: Smoking Status (Most current) and Tobacco Use (All prior to encounter date) This section includes the most current, and the historical, smoking and tobacco-related health factors from the [place] facility where the Encounter took place.Current Smoking Status This section includes the most current smoking, or tobacco-related health factor, from the [place] facility where the Encounter took place. Date/Time Current Smoking Status Comment Facility Oct 29, 2020 10:00 AM VA-TOBACCO USER EVERY DAY [place] [facility] Tobacco Use History This section includes a history of the smoking, or tobacco- related health factors, that were collected on or before the date of the Encounter. The data comes from the [place] facility where the Encounter took place. 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 [facility] Oct 29, 2020 10:00 VA-TOBACCO USE MED NOTIFY VA CNTRL [facility] AM PROVIDER [place] [facility] Oct 29, 2020 10:00 VA-TOBACCO USER EVERY DAY VA CN[facility] AM [place] [facility] Oct 10, 2019 11:00 VA-TOBACCO FORMER USER VA CNT RL WSTRN AM [place] [facility] Oct 10, 2019 11:00 VA-TOBACCO QUIT < 1 YEAR VA C NTRL W[facility] AM [place] [facility] Oct 26, 2018 07:55 VA-TOBACCO USE > 15 LESS VA C NTRL WSTRN AM THAN 30 YEARS [place] [facility] Oct 26, 2018 07:55 VA-TOBACCO USE ADVICE VA CNTR L [facility] AM [place] [facility] Oct 26, 2018 07:55 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 [facility] AM [place] [facility] Oct 26, 2018 07:55 VA-TOBACCO USE MED NO [facility] CNTR L [facility] AM [place] [facility] Oct 26, 2018 07:55 VA-TOBACCO USE WI 30 MIN VA C NTRL WSTRN AM OF [place] [facility] Oct 26, 2018 07:55 VA-TOBACCO USER EVERY DAY VA CN[facility] AM [place] [facility] Aug 04, 2017 08:53 CURRENT SMOKER VA CNTRL WSTR N AM [place] [facility] Aug 04, 2017 08:53 V1-PT DECLINES REF TO VA CNTR L [facility] AM TOBACCO CESS PRGM [place] [facility] Aug 04, 2017 08:53 V1-PT DECLINES TOBACCO VA CNT RL WSTRN AM CESSATION MEDS [place] [facility] Aug 04, 2017 08:53 V1-PT THINKING ABOUT QUIT VA CN[facility] AM TOBACCO USE [place] [facility] Jan 31, 2017 09:51 QUIT TOBACCO USE IN PAST VA C NTRL WSTRN AM YEAR 31 days [place] [facility] Jan 26, 2016 08:36 CURRENT SMOKER VA CN[facility] WSTR N AM [place] [facility] Jan 26, 2016 08:36 V1-PT DECLINES REF TO VA CNTR L [facility] AM TOBACCO CESS PRGM [place] [facility] Jan 26, 2016 08:36 V1-PT DECLINES TOBACCO VA CNT RL WSTRN AM CESSATION MEDS [place] [facility] Jan 26, 2016 08:36 V1-PT THINKING ABOUT QUIT VA CN[facility] AM TOBACCO USE [place] [facility] Feb 20, 2015 10:25 QUIT TOBACCO USE IN PAST VA C NTRL WSTRN AM YEAR [place] [facility] June 17, 2014 07:37 CURRENT SMOKER VA CNTRL WSTR N AM Reports being an off and on smo ker -cigarettes [facility] June 17, 2014 07:37 V1-PT DECLINES REF TO VA CNTR L [facility] AM TOBACCO CESS PRGM [place] [facility] June 17, 2014 07:37 V1-PT DECLINES TOBACCO VA CNT RL WSTRN AM CESSATION MEDS [place] [facility] June 17, 2014 07:37 V1-PT THINKING ABOUT QUIT VA CN[facility]L [facility] AM TOBACCO USE [place] [facility] Sep 14, 2011 09:51 CURRENT SMOKER VA CN[facility] W[facility] N AM less than a pack a day [place] [facility] Sep 14, 2011 09:51 V1-PT DECLINES REF TO VA CNTR L [facility] AM TOBACCO CESS PRGM [place] [facility] Sep 14, 2011 09:51 V1-PT DECLINES TOBACCO VA CNT RL WSTRN AM CESSATION MEDS [place] [facility] Sep 14, 2011 09:51 V1-PT THINKING ABOUT QUIT [facility] CN[facility]L [facility] AM TOBACCO USE [place] [facility] Mar 09, 2010 09:32 CURRENT SMOKER VA CNTRL WSTR N AM 1 ppd [place] [facility] Mar 09, 2010 09:32 V1-PT DECLINES TOBACCO VA CNT RL WSTRN AM CESSATION MEDS [place] [facility] Mar 09, 2010 09:32 V1-PT REF TO NON-VA [facility] CN[facility]L [facility] AM TOBACCO CESS PRGM [place] Mar 09, 2010 09:32 V1-PT THINKING ABOUT QUIT [facility] CN[facility]L [facility] AM TOBACCO USE [place] [facility] Sep 29, 2009 02:07 V1-PT DECLINES REF TO VA CNTR L [facility] PM TOBACCO CESS PRGM [place] Sep 29, 2009 02:07 V1-PT DECLINES TOBACCO VA CNT RL WSTRN PM CESSATION MEDS [place] [facility] Sep 29, 2009 02:07 V1-PT NOT INTERESTED IN VA CN TRL WSTRN PM QUIT TOBACCO USE [place] [facility] Jan 29, 2009 11:00 CURRENT SMOKER VA CNTRL WSTR N AM 1 ppd [place] [facility] Jan 29, 2009 11:00 V1-PT DECLINES TOBACCO VA CNT RL WSTRN AM CESSATION MEDS [place] [facility] Jan 29, 2009 11:00 V1-PT READY TO QUIT VA CN[facility]L W[facility]N AM TOBACCO USE [place] [facility] Mar 17, 2005 08:36 CURRENT SMOKER VA CN[facility]L WSTR N AM [place] [facility] Encounter Notes: All associated encounter notes This section contains the clinical notes associated to the Encounter. Date/Time Encounter Note(s) Provider Source Feb 27, 2021 12:00 AM NONVA DIAGNOSTIC STUDY REPORT: [facility] LOCAL TITLE: NON-VA DIAGNOSTICS [place] [facility] STANDARD TITLE: NONVA DIAGNOSTIC STUDY REPORT DATE OF NOTE: FEB 27, 2021 ENTRY DATE: MAR 27 022@09:03:42 AUTHOR: CAN GALLEGOS EXP COSIGNER: URGENCY: STATUS: COMPLETED VistA Imaging - Scanned Document SCANNED DOCUMENT SIGNATURE NOT REQUIRED Electronically Filed: 03/27/2021 by: CAN GALLEGOS INBOUND TELEMARKETER (COLLATOR HAND)
--- OUTSIDE RECORDS SUMMARY | 2021-12-29 17:16 | XMS_ITS | Encounter Summary ---
:1950 Author Organization Department [facility] rs Address [address] [place] [id number] Support Name Relationship Address Phone MARIAN CABRERA Unavailable [address] [place] [address] MARIAN CABRERA Unavailable [address] [place] [phone] Insurance Providers: All historical and current Section [...] MEDICARE MEDICARE PART Jul 15, PART A [id number] BANG PATIENT (WNR) (M) A 2013 [id number] MEDICARE MEDICARE PART Jul 15, PART B [id number] BANG PATIENT (WNR) (M) B [id number] 4 BRAD PALACIOS Selected Encounter This section includes the information on record at [place] for the Encounter. Date/Time Encounter Type Encounter Description Reason Provider Source Apr 29, 2021 06:46 Outpatient Encounter OPTOMETRY PM IHE Encounter Template Text not used by [place] Plan of Treatment: Future Appointments (+ 6 [...] 20 appointments. The data comes from all [place] treatment facilities. Appointment Date/Time Appointment Type Appointment Facili ty Name May 04, 2021 09:00 AM AMBULATORY [place]ICINE [facility] [place] [facility] Oct 23, 2021 08:00 AM AMBULATORY - MEDICINE [facility] [place] [facility] Oct 26, 2021 01:00 PM [facility] Lab Results: +/- 30 days of the encounter This section includes the Chemistry and Hematology Lab Results on record with [place] for the patient. Radiology Reports and Pathology Reports are provided separately, in subsequent sections.Lab Results This section contains the Chemistry/Hematology Results that were resulted 30 days before or 30 daysafter the date of the Encounter. Date/Time Source Result Type Result - Unit Interpretation Reference Range Comment Apr 29, 2021 [facility] BASIC METABOLIC Specimen Type: SERUM 07:41 AM [facility] [facility] PANEL (fasting) No comment enter ed. Ordering Provid er: VIRA CRUZ Report Released Date/Time: Apr 17, 2021 10:45 AM Reporting [facility] [place] [facility] [address] [facility] [facility] [address] Performing Lab: [facility] [place] [facility] [address] [facility] [address] UREA NITROGEN 15 7-25 GLUCOSE 110 H 65-100 SODIUM 141 135-145 POTASSIUM 4.4 3.5-5.0 CHLORIDE 104 100-110 CO2 29 20-30 CREATININE, Serum 0.93 0.50-1.40 eGFR (IDMS) 80 >60 Apr 29, 2021 [facility] LIP[facility]EL FASTING Specimen Ty pe: SERUM 07:41 AM [facility] No comment enter ed. Ordering Provid er: VIRA CRUZ Report Released Date/Time: Apr 17, 2021 10:45 AM Reporting Lab: [facility] [place] [facility] [address] [facility] [facility] [address] Performing [facility] [place] [facility] [address] [facility] [facility] [address] CHOLESTEROL 157 <7-199 TRIGLYCERIDE 49 0-150 LDL calculated 105 0-129 CHOL/HDL 3.7 HDL CHOLESTEROL 42 40-60 Apr 29, 2021 07:41 AM [facility] [place] FERRITIN Specimen Type: [facility] No comment enter ed. Ordering Provid er: VIRA CRUZ Report Released Date/Time: Apr 17, 2021 10:45 AM Reporting Lab: [facility] [place] [facility] [address] [facility] [address] Performing Lab: [facility] [facility] [address] [facility] [address] FERRITIN 135.5 20-300 Apr 29, 2021 07:41 [facility] LIVER FUNCTION Specimen Typ e: SERUM AM [facility] [facility] No comment enter ed. Ordering Provid er: VIRA CRUZ Report Released Date/Time: Apr 17, 2021 10:45 AM Reporting Lab: [facility] [facility] [address] [facility] [address] Performing Lab: [facility] [facility] [address] [facility] [address] PROTEIN,TOTAL 6.3 6.0-8.3 ALBUMIN 3.8 3.5-5.0 ALKALINE PHOSPHATASE 86 40-150 AST 15 5-34 ALT 24 <6-55 BILIRUBIN, TOTAL 0.7 0.2-1.2 Apr 29, 2021 07:41 [facility] CBC AND DIFF Specimen Typ e: BLOOD AM [facility] [facility] (AUTO) No comment enter ed. Ordering Provid er: VIRA CRUZ Report Released Date/Time: Apr 17, 2021 10:45 AM Reporting Lab: [facility] [place] [facility] [address] [facility] [address] Performing Lab: [facility] [place] [facility] [address] [facility] [address] WBC 7.36 4.50-11.00 RBC 5.20 4.23-5.66 HGB 16.4 12.8-17 HCT 49.4 39.2-50.4 MCV 95.0 82-99 MCHC 33.2 30.8-35.1 PLT 173 140-360 RDW-CV 11.9 L 12.0-16.0 [place], Abs 0.59 0.30-1.10 MCH 31.5 26.2-32.6 Neut % 68.0 Lymph % 21.7 [place] % 8.0 Eos % 1.2 Baso % 0.7 Neut, Abs 5.00 2.20-7.60 Lymph, Abs 1.60 1.00-3.20 Eos, Abs 0.09 0.03-0.44 Baso, Abs 0.05 0.01-0.13 Immature Gran % 0.4 Immature Gran, Abs 0.03 0.00-0.06 Social History: Smoking Status (Most current) and Tobacco Use (All prior to encounter date) This section includes the most current, and the historical, smoking and tobacco-related health factors from the [place] facility where the Encounter took place.Current Smoking Status This section includes the most current smoking, or tobacco-related health factor, from the [place] facility where the Encounter took place. Date/Time Current Smoking Status Comment Facility Oct 29, 2020 10:00 AM VA-TOBACCO USER EVERY DAY [place] [facility] Tobacco Use History This section includes a history of the smoking, or tobacco- related health factors, that were collected on or before the date of the Encounter. The data comes from the [place] facility where the Encounter took place. 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 [facility] Oct 29, 2020 10:00 VA-TOBACCO USE MED NOTIFY [facility] PROVIDER [place] [facility] Oct 29, 2020 10:00 VA-TOBACCO USER EVERY DAY [facility] [place] [facility] Oct 10, 2019 11:00 VA-TOBACCO FORMER USER [facility] [place] [facility] Oct 10, 2019 11:00 VA-TOBACCO QUIT < 1 YEAR [facility] [place] [facility] Oct 26, 2018 07:55 VA-TOBACCO USE > 15 LESS [facility] AM THAN 30 YEARS [facility] Oct 26, 2018 07:55 VA-TOBACCO USE ADVICE [facility] [place] [facility] Oct 26, 2018 07:55 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 [facility] [place] [facility] Oct 26, 2018 07:55 VA-TOBACCO USE MED NO [facility] [place] [facility] Oct 26, 2018 07:55 VA-TOBACCO USE WI 30 MIN [facility] AM [place] [facility] Oct 26, 2018 07:55 VA-TOBACCO USER EVERY DAY [facility] [place] [facility] Aug 04, 2017 08:53 CURRENT SMOKER [facility] [place] [facility] Aug 04, 2017 08:53 V1-PT DECLINES REF TO [facility] TOBACCO CESS [facility]GM [place] [facility] Aug 04, 2017 08:53 V1-PT DECLINES TOBACCO [facility] Aug 04, 2017 08:53 V1-PT THINKING ABOUT QUIT [facility] TOBACCO USE [place] [facility] Jan 31, 2017 09:51 QUIT TOBACCO USE IN PAST VA C N[facility] W[facility] AM YEAR 31 days [place] [facility] Jan 26, 2016 08:36 CURRENT SMOKER [facility] [place] [facility] Jan 26, 2016 08:36 V1-PT DECLINES REF TO [facility]ACCO [facility] Jan 26, 2016 08:36 V1-PT DECLINES TOBACCO [facility] CESSATION [facility]S [place] [facility] Jan 26, 2016 08:36 V1-PT THINKING ABOUT QUIT [facility] TOBACCO USE [place] [facility] Feb 20, 2015 10:25 QUIT TOBACCO USE IN PAST VA C [facility] AM YEAR [place] [facility] June 17, 2014 07:37 CURRENT SMOKER [facility] AM Reports being an off and on smo ker -cigarettes [facility] June 17, 2014 07:37 V1-PT DECLINES REF TO [facility] TOBACCO CESS [facility] June 17, 2014 07:37 V1-PT DECLINES TOBACCO [facility] CESSATION MEDS [place] [facility] June 17, 2014 07:37 V1-PT THINKING ABOUT QUIT [facility] TOBACCO USE [place] [facility] Sep 14, 2011 09:51 CURRENT SMOKER [facility] AM less than a pack a day [place] [facility] Sep 14, 2011 09:51 V1-PT DECLINES REF TO [facility] TOBACCO CESS [facility] [place] [facility] Sep 14, 2011 09:51 V1-PT DECLINES TOBACCO [facility] CESSATION [facility]S [place] [facility] Sep 14, 2011 09:51 V1-PT THINKING ABOUT QUIT [facility] AM TOBACCO USE [place] [facility] Mar 09, 2010 09:32 CURRENT SMOKER [facility] AM 1 ppd [place] [facility] Mar 09, 2010 09:32 V1-PT DECLINES TOBACCO [facility] CESSATION [facility]S [place] [facility] Mar 09, 2010 09:32 V1-PT REF TO NON-VA [facility] TOBACCO CESS PRGM [place] [facility] Mar 09, 2010 09:32 V1-PT THINKING ABOUT QUIT [facility] AM TOBACCO USE [place] [facility] Sep 29, 2009 02:07 V1-PT DECLINES REF TO [facility] PM TOBACCO CESS PRGM [place] [facility] Sep 29, 2009 02:07 V1-PT DECLINES TOBACCO [facility] PM CESSATION MEDS [place] [facility] Sep 29, 2009 02:07 V1-PT NOT INTERESTED IN [facility] PM QUIT TOBACCO USE [place] [facility] Jan 29, 2009 11:00 CURRENT SMOKER [facility] AM 1 ppd [place] [facility] Jan 29, 2009 11:00 V1-PT DECLINES TOBACCO [facility] AM CESSATION MEDS [place] [facility] Jan 29, 2009 11:00 V1-PT READY TO QUIT [facility] AM TOBACCO USE [place] [facility] Mar 17, 2005 08:36 CURRENT SMOKER [facility] [place] [facility] Encounter Notes: All associated encounter notes This section contains the clinical notes associated to the Encounter. Date/Time Encounter Note(s) Provider Source Apr 29, 2021 06:47 PM ADMINISTRATIVE NOTE: BRUNO BACH [facility] LOCAL TITLE: ADMINISTRATIVE NOTE [place] [facility] STANDARD TITLE: ADMINISTRATIVE NOTE DATE OF NOTE: APR 29, 2021@18:47 ENTRY DATE: APR 29, 2021@18:47:08 AUTHOR: BRUNO BACH EXP COSIGNER: URGENCY: STATUS: COMPLETED ADMINISTRATIVE NOTE Has ADDENDA TELEPHONE CALL: CALLED ON Apr@18 :47 PHONE NUMBER [[email or web address]] - Appointment was scheduled fo r: Dec@09:00 with CWM/NO/OPTOMETRY/PROVIDER K and is CANCELLED BY CLINIC (PROVIDER ON APPROV ED LEAVE) SPOKE With He/She Rebooked Appointment Per Below (X) Left Voice Mail Unable To Speak Or Leave Voice Message (X) Letter Sent To Mailing Address On File Comments: can call the clinic at [phone] Upcoming Appointments: 05/04/2021 09:00 CWM/NO/PACT 1 /es/ Bruno Bach Lead [facility], [facility] Signed: 04/29/2021 18:47 05/13/2021 ADDENDUM STATUS: COMPLETED PUTTING OPTOMETRY RTC PID 12/25/2021 INTO [facility] DUE TO [employer] FAILURE TO RESPOND /es/ VIRI CRAWFORD Signed: 05/13/2021 09:07
--- OUTSIDE RECORDS SUMMARY | 2021-12-29 17:16 | XMS_ITS | Encounter Summary ---
:1950 Author Organization [facility] rs Address [address] [place] [address] Support Name Relationship Address Phone MARIAN CABRERA Unavailable [address] [place] [id number] MARIAN CABRERA Unavailable [address] [facility] [place] [address] Insurance Providers: All historical and current Section [...] MEDICARE MEDICARE PART Jul 15, PART A [id number] BANG PATIENT (WNR) (M) A 2013 90A 4 BRAD PALACIOS MEDICARE MEDICARE PART Jul 15, PART B [id number] BANG PATIENT (WNR) (M) B 2013A 4 BRAD PALACIOS Selected Encounter This section includes the information on record at [place] for the Encounter. Date/Time Encounter Type Encounter Reason Provider Source Description May 04, 2021 OFFICE O/P EST PRIMARY ICD-10-CM Z23 BA CRUZ 09:00 AM MOD 30-39 MIN CARE/MEDICINE Encounter for D JAWED immunization with Provider Comments: Encounter for immunization (ICD-10-CM Z23.) IHE Encounter Template Text not used by [place] Assessments - Encounter Diagnoses This section includes the primary and secondary diagnoses documented for the Encounter. Date/Time Primary/Secondary Diagnosis Name Provider Source Diagnosis May 04, 2021 PRIMARY Encounter for BA CRUZ [facility] 09:46 AM immunization [facility] May 04, 2021 SECONDARY Benign prostatic BA CRUZ [facility] 09:46 AM hyperplasia without [facility] lower urinry tract symp May 04, 2021 SECONDARY Centrilobular BA CRUZ [facility] 09:46 AM emphysema D [facility]ED [facility] May 04, 2021 SECONDARY Nicotine dependence, BA CRUZ [facility] 09:46 AM unsp, w oth D [facility]ED [facility] nicotine-induced disorders May 04, 2021 SECONDARY Other JANETTMEDBA [facility] 09:46 AM hemochromatosis D JAWED [facility] May 04, 2021 SECONDARY Other obesity BA CRUZ [facility] 09:46 AM [facility]ED [facility] Plan of Treatment: Future Appointments (+ 6 months) and Future Tests (+/- 45 days) The Plan of Treatment section includes future care activities for the patient from all [facility] This section includes future appointments and future orders which are active, pending orscheduled.Future Appointments This section includes appointments that were scheduled to occur 6 months from the date of the Encounter, up to a maximum of 20 appointments. The data comes from all [place] treatment facilities. Appointment Date/Time Appointment Type Appointment Facili ty Name Oct 23, 2021 08:00 AM AMBULATORY - MEDICINE [facility] Oct 26, 2021 01:00 PM [facility] Lab Results: +/- 30 days of the encounter This section includes the Chemistry and Hematology Lab Results on record with [place] for the patient. Radiology Reports and Pathology Reports are provided separately, in subsequent sections.Lab Results This section contains the Chemistry/Hematology Results that were resulted 30 days before or 30 daysafter the date of the Encounter. Date/Time Source Result Type Result - Unit Interpretation Reference Range Comment Apr 29, 2021 [facility] FASTING Specimen Ty pe: SERUM 07:41 AM [facility] No comment enter ed. Ordering Provid er: VIRA CRUZ Report Released Date/Time: Apr 17, 2021 10:45 AM Reporting Lab: [facility] [address] [facility] [facility] [address] Performing Lab: [facility] [address] [address] CHOLESTEROL 157 <7-199 TRIGLYCERIDE 49 0-150 LDL calculated 105 0-129 CHOL/HDL 3.7 HDL CHOLESTEROL 42 40-60 Apr 29, 2021 [facility] BASIC METABOLIC Specimen Type: SERUM 07:41 AM [facility] PANEL (fasting) No comment enter ed. Ordering Provid er: VIRA CRUZ Report Released Date/Time: Apr 17, 2021 10:45 AM Reporting Lab: [facility] [address] [facility] [facility] [address] Performing Lab: [facility] [address] [facility] [facility] [address] UREA NITROGEN 15 7-25 GLUCOSE 110 H 65-100 SODIUM 141 135-145 POTASSIUM 4.4 3.5-5.0 CHLORIDE 104 100-110 CO2 29 20-30 CREATININE, Serum 0.93 0.50-1.40 eGFR (IDMS) 80 >60 Apr 29, 2021 07:41 AM [facility] [place] FERRITIN Specimen Type: [facility] No comment enter ed. Ordering Provid er: VIRA CRUZ Report Released Date/Time: Apr 17, 2021 10:45 AM Reporting Lab: [facility] [address] [facility] [facility] [address] Performing Lab: [facility] [address] [facility] [address] FERRITIN 135.5 20-300 Apr 29, 2021 07:41 [facility] LIVER FUNCTION Specimen Typ e: SERUM AM [facility] No comment enter ed. Ordering Provid er: VIRA CRUZ Report Released Date/Time: Apr 17, 2021 10:45 AM Reporting Lab: [facility] [address] [facility] [facility] [address] Performing Lab: [facility] [address] [facility] [facility] [address] PROTEIN,TOTAL 6.3 6.0-8.3 ALBUMIN 3.8 3.5-5.0 ALKALINE PHOSPHATASE 86 40-150 AST 15 5-34 ALT 24 <6-55 BILIRUBIN, TOTAL 0.7 0.2-1.2 Apr 29, 2021 07:41 [facility] CBC AND DIFF Specimen Typ e: BLOOD AM [facility] (AUTO) No comment enter ed. Ordering Provid er: VIRA CRUZ Report Released Date/Time: Apr 17, 2021 10:45 AM Reporting Lab: [facility] [address] [address] Performing Lab: [place] [facility] [address] [address] WBC 7.36 4.50-11.00 RBC 5.20 4.23-5.66 HGB 16.4 12.8-17 HCT 49.4 39.2-50.4 MCV 95.0 82-99 MCHC 33.2 30.8-35.1 PLT 173 140-360 RDW-CV 11.9 L 12.0-16.0 Alpine, Abs 0.59 0.30-1.10 MCH 31.5 26.2-32.6 Neut % 68.0 Lymph % 21.7 Alpine % 8.0 Eos % 1.2 Baso % 0.7 Neut, Abs 5.00 2.20-7.60 Lymph, Abs 1.60 1.00-3.20 Eos, Abs 0.09 0.03-0.44 Baso, Abs 0.05 0.01-0.13 Immature Gran % 0.4 Immature Gran, Abs 0.03 0.00-0.06 Vital Signs: All taken on the encounter date This section contains inpatient and outpatient Vital Signs collected on the date of the Encounter. Date/Time Temperature Pulse Blood Respiratory SP02 Pain Height Weight Luis dy Source Pressure Rate Mass Index May 04, 125/74 [facility] 2021 08:58 mm[Hg] [facility] AM [facility] May 04, 96.2 F 85 145/82 16 /min 95 % 0 232.2 32 2021 08:55 /min mm[Hg] lb [facility]TRL AM [facility] Immunizations: All administered on the encounter date This section contains immunizations associated to the Encounter. Immunization Series Date Issued Reaction Comments ZOSTER RECOMBINANT 2 May 04, 2021 Social History: Smoking Status (Most current) and Tobacco Use (All prior to encounter date) This section includes the most current, and the historical, smoking and tobacco-related health factors from the [place] facility where the Encounter took place.Current Smoking Status This section includes the most current smoking, or tobacco-related health factor, from the [place] facility where the Encounter took place. Date/Time Current Smoking Status Comment Facility Oct 29, 2020 10:00 AM VA-TOBACCO USER EVERY DAY [facility] [place] [facility] Tobacco Use History This section includes a history of the smoking, or tobacco- related health factors, that were collected on or before the date of the Encounter. The data comes from the [place] facility where the Encounter took place. 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 [facility] AM YES [place] [facility] Oct 29, 2020 10:00 VA-TOBACCO USE MED NOTIFY [facility] PROVIDER [place] [facility] Oct 29, 2020 10:00 VA-TOBACCO USER EVERY DAY [facility] AM [place] [facility] Oct 10, 2019 11:00 VA-TOBACCO FORMER USER [facility] AM [place] [facility] Oct 10, 2019 11:00 VA-TOBACCO QUIT < 1 YEAR [facility] C [facility]L [facility] AM [place] [facility] Oct 26, 2018 07:55 VA-TOBACCO USE > 15 LESS [facility] C N[facility]L W[facility] AM THAN 30 YEARS [place] [facility] Oct 26, 2018 07:55 VA-TOBACCO USE ADVICE [facility] AM [place] [facility] Oct 26, 2018 07:55 VA-TOBACCO USE 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 NO [facility] [place] [facility] Oct 26, 2018 07:55 VA-TOBACCO USE MED NO [facility] AM [place] [facility] Oct 26, 2018 07:55 VA-TOBACCO USE WI 30 MIN [facility] C N[facility]L W[facility] AM OF [place] [facility] Oct 26, 2018 07:55 VA-TOBACCO USER EVERY DAY [facility] [place] [facility] Aug 04, 2017 08:53 CURRENT SMOKER [facility] [place] [facility] Aug 04, 2017 08:53 V1-PT DECLINES REF TO [facility] AM TOBACCO CESS PRGM [place] [facility] Aug 04, 2017 08:53 V1-PT DECLINES TOBACCO [facility] AM CESSATION MEDS [place] [facility] Aug 04, 2017 08:53 V1-PT THINKING ABOUT QUIT [facility] TOBACCO USE [place] [facility] Jan 31, 2017 09:51 QUIT TOBACCO USE IN PAST VA C NTRL WSTR[facility] AM YEAR 31 days [place] [facility] Jan 26, 2016 08:36 CURRENT SMOKER [facility] AM [place] [facility] Jan 26, 2016 08:36 V1-PT DECLINES REF TO [facility] TOBACCO CESS [facility]GM [place] [facility] Jan 26, 2016 08:36 V1-PT DECLINES TOBACCO [facility] AM CESSATION MEDS [place] [facility] Jan 26, 2016 08:36 V1-PT THINKING ABOUT QUIT [facility] TOBACCO USE [place] [facility] Feb 20, 2015 10:25 QUIT TOBACCO USE IN PAST VA C NTRL WSTR[facility] AM YEAR [place] [facility] June 17, 2014 07:37 CURRENT SMOKER [facility] AM Reports being an off and on smo ker -[facility] June 17, 2014 07:37 V1-PT DECLINES REF TO [facility] AM TOBACCO CESS [facility]GM [place] [facility] June 17, 2014 07:37 V1-PT DECLINES TOBACCO [facility] AM CESSATION MEDS [place] [facility] June 17, 2014 07:37 V1-PT THINKING ABOUT QUIT [facility] TOBACCO USE [place] [facility] Sep 14, 2011 09:51 CURRENT SMOKER [facility] AM less than a pack a day [place] [facility] Sep 14, 2011 09:51 V1-PT DECLINES REF TO [facility] AM TOBACCO CESS [facility] [place] [facility] Sep 14, 2011 09:51 V1-PT DECLINES TOBACCO [facility] AM CESSATION MEDS [place] [facility] Sep 14, 2011 09:51 V1-PT THINKING ABOUT QUIT [facility] AM TOBACCO USE [place] [facility] Mar 09, 2010 09:32 CURRENT SMOKER [facility] AM 1 ppd [place] [facility] Mar 09, 2010 09:32 V1-PT DECLINES TOBACCO [facility] AM CESSATION MEDS [place] [facility] Mar 09, 2010 09:32 V1-PT REF TO NON-VA [facility] AM TOBACCO CESS PRGM [place] [facility] Mar 09, 2010 09:32 V1-PT THINKING ABOUT QUIT [facility] AM TOBACCO USE [place] [facility] Sep 29, 2009 02:07 V1-PT DECLINES REF TO [facility] PM TOBACCO CESS PRGM [place] [facility] Sep 29, 2009 02:07 V1-PT DECLINES TOBACCO [facility] PM CESSATION MEDS [place] [facility] Sep 29, 2009 02:07 V1-PT NOT INTERESTED IN [facility] PM QUIT TOBACCO USE [place] [facility] Jan 29, 2009 11:00 CURRENT SMOKER [facility] AM 1 ppd [place] [facility] Jan 29, 2009 11:00 V1-PT DECLINES TOBACCO [facility] AM CESSATION MEDS [place] [facility] Jan 29, 2009 11:00 V1-PT READY TO QUIT [facility] AM TOBACCO USE [place] [facility] Mar 17, 2005 08:36 CURRENT SMOKER [facility] AM [place] [facility] Encounter Notes: All associated encounter notes This section contains the clinical notes associated to the Encounter. Date/Time Encounter Note(s) Provider Source May 04, 2021 09:36 PHYSICIAN NOTE: VIRA CRUZ [facility] AM LOCAL TITLE: MD DIANN LAMB [facility] STANDARD TITLE: PHYSICIAN NOTE DATE OF NOTE: MAY 04, 2021@09:36 ENTRY DATE: MAY 04, 2021@09:36:11 AUTHOR: VIRA CRUZ EXP COSIGNER: URGENCY: STATUS: COMPLETED Patient Name: BRAD CUENCA VITALS: Patient temperature: 96.2 F [35.7 C] (05/04/2021 08:55) Blood pressure: 125/74 (05/04/2021 08:58) Patient height: 71 in [180.3 cm] (06/17/2014 07: 32) Patient weight: 232.2 lb [105.32 kg] (05/04/2021 08:55) Patient BMI: BMI: 32.5 Patient pulse: 85 (05/04/2021 08:55) Patient respiration: 16 (05/04/2021 08:55) Pain Ratin (05/04/2021 08:55) Active [facility] Medications: Active Outpatient Medicat ions (including Supplies): Active Outpatient Medications Status 1) FINASTERIDE 5MG TAB TAKE ONE TABLET BY MOUTH ONCE ACTIVE DAILY FOR PROSTATE 2) FLUTICAS 250/SALMETEROL 50 INHL DISK 60 INHAL E 1 PUFF ACTIVE (S) BY MOUTH TWICE DAILY FOR BREATHING - RINSE MOUT H AFTER USE 3) TAMSULOSIN HCL 0.4MG CAP TAKE ONE CAPSULE BY MOUTH AT ACTIVE BEDTIME 4) TIOTROPIUM 2.5MCG/ACTUAT 60D ORAL INHL INHALE 2 PUFFS ACTIVE BY MOUTH ONCE DAILY Pending Outpatient Medications Status 1) ALBUTEROL 90MCG (CFC-F) 200D ORAL INHL INHALE 2 PUFFS PENDING BY MOUTH FOUR TIMES DAILY NEEDED FOR BREATHI NG 2) IBUPROFEN 600MG TAB TAKE ONE TABLET BY MOUTH THREE PENDING TIMES A DAY TAKE WITH FOOD; FOR PAIN/INFLAMMATION/SWELLING 3) SILDENAFIL CITRATE 100MG TAB TAKE ONE TABLET BY MOUTH PENDING ONCE A WEEK TAKE 1 HOUR PRIOR TO SEXUAL ACTIVITY (NOTE NEW TABLET STRENGTH) TAKE AT LEAST 12 HOURS APART FROM TAMULOSIN 4) TIOTROPIUM 2.5MCG/ACTUAT 60D ORAL INHL INHALE 2 PUFFS PENDING BY MOUTH ONCE DAILY 8 Total Medications Remote Medications: No Active Remote Medications for this patient CC: Came today for his 6-tue follow-up appointment last visit was in October 2020. HPI: 70-year-old patient who has 1. Emphysema/continuous smoking--patient has been using all his inhaler but he continues to smoke his last CT of the ch est was done in December 2020 plan was to repeat in 1 year which would be due sometime December 2021. 2. BPH last October he was prescribed finaster marika along with tamsulosin but patient has not started taking that he still hav e feeling that his bladder is not completely emptied he has been seen by urolo gist 1 time but did have no follow-up 3. Erectile dysfunction patient is requesting si ldenafil to be renewed 4. Obesity his BMI is just above 32 he was couns eled on weight loss 5. Hemochromatosis patient said his last phlebotomy was 2 months ago he missed last month his ferritin level is 135. Review of system. CVS-Denies any chest pain or discomfort. Respiratory-denies any sob- no changes in his [facility] respiratory status. GI-no Gi complains-like nausea and vomiting, abd ominal pain or acid reflux, blood in stool, diarrhea. -denies any frequency, urgency, dysuria On examination: patient is a lert and oriented X3 vitals are stable, He is in no apparent distress. CVS: regular rate and rhythm Lungs: clear to auscultation ABD: Benign EXT: no edema. A/P: 1. Emphysema/continuous smoking--continue all in haler, was counseled to quit smoking, was offered nicotine replacement he dec lined, was counseled for breathing exercises 2. BPH-was advised to start taking finasteride a long with tamsulosin and will monitor in 6-month if symptoms improve or not 3. Erectile dysfunction continue sildenafil 4. Obesity was counseled for weight loss by diet and exercise 5. Hemochromatosis continue phlebotomy 6. Seborrheic/actinic keratoses/nevi there was a Tele dermatology in November will consider dermatology next visit. Follow-up in 6 months. Medication Reconciliation: Outpatient: Has the patient been taking medications as docu mented in the EMLR? YES: The patient has been taking medications as documented in the EMLR. Essential Medication List for Review used to co mplete this medication reconciliation. INCLUDED IN THIS LIST: Alphabetical list of act alonso outpatient prescriptions dispensed from this [facility] (local) an d dispensed from another [facility] or [facility] facility (remote) as well as inpatien t [...] whether with a VA or non-VA provider. /es/ VIRA CRUZ MD STAFF PHYSICIAN Signed: 05/04/2021 09:47 May 04, 2021 08:57 PREVENTIVE MEDICINE NURSING NOTE: RAFAEL LEDEZMA [place] [facility] LOCAL TITLE: CLINICAL REMINDERS/NURSING [facility] [facility] STANDARD TITLE: PREVENTIVE MEDICINE NURSING NOTE DATE OF NOTE: MAY 04, 2021@08:57 ENTRY DATE: MAY 04, 2021@08:57:03 AUTHOR: YOHANNES LEDEZMA EXP COSIGNER: URGENCY: STATUS: COMPLETED Homelessness/Food Insecurity Screen: In the past 2 months, have you been living in s table housing that you own, rent, or stay in as part of a household? Y es - Living in stable housing. Are you worried or concerned that in the next 2 months you may NOT have stable housing that you own, rent, or stay in a s part of a household? No - Not worried about housing near future The reports the following: Within the past 12 months, you worried whether your food would run out before you got money to buy more. Never true Within the past 12 months, the food you bought just didn't last and you didn't have money to get more. Never true Suicide Screen: C-SSRS Screening [place] Suicide Severity Rating Scale (C-SSRS) screener 1. Over the past month, have you wished you wer e or wished you could go to sleep and not wake up? No 2. Over the past month, have you had any actual thoughts of killing yourself? No 3. Over the past month, have you been thinking about how you might do this? Response not required due to responses to other questions. 4. Over the past month, have you had these thou ghts and had some intention of acting on them? Response not required due to responses to other questions. 5. Over the past month, have you started to wor k out or worked out the details of how to kill yourself? Response not required due to responses to other questions. 6. If yes, at any time in the past month did yo u intend to carry out this plan? Response not required due to responses to other questions. 7. In your lifetime, have you ever done anythin g, started to do anything, or prepared to do anything to end you r life (for example, collected pills, obtained a gun, gave away valu conor, went to the roof but didn't jump)? No 8. If YES, was this within the past 3 months? Response not required due to responses to other questions. Alcohol Use Screen (AUDIT-C): Alcohol Screen: SCREEN FOR ALCOHOL (AUDIT-C) An alcohol screening test (AUDIT-C) was negativ e (score=1). 1. How often did you have a drink containing al cohol in the past year? Monthly or less 2. How many drinks containing alcohol did you h ave on a typical day when you were drinking in the past year? One or two drinks 3. How often did you have six or more drinks on one occasion in the past year? Never Zoster Vaccine (Shingrix): The patient received recombinant zoster vaccine (RZV) 0.5 ml IM in Right deltoid. 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 /natalie/ YOHANNES LEDEZMA LPN LICENSED PRACTICAL NURSE Signed: 05/04/2021 09:06
--- OUTSIDE RECORDS SUMMARY | 2021-12-29 17:16 | XMS_ITS ---
:1950 Author Organization Department [facility] rs Address [address] [place] [id number] Support Name Relationship Address Phone MARIAN CABRERA Unavailable [address] EMILIE MENDES [phone] MARIAN CABRERA Unavailable [address] [place]ENDES [phone] Insurance Providers: All historical and current Section [...] MEDICARE MEDICARE PART Jul 15, PART B [id number] BANG PATIENT (WNR) (M) B 2013A 4 BRAD PALACIOS MEDICARE MEDICARE PART Jul 15, PART A [id number] BANG PATIENT (WNR) (M) A 2013A 4 BRAD PALACIOS Selected Encounter This section includes the information on record at [place] for the Encounter. Date/Time Encounter Type Encounter Description Reason Provider Source Jan 14, 2021 08:16 Outpatient Encounter PRIMARY CARE/MEDICINE AM IHE Encounter Template Text not used by [place] Plan of Treatment: Future Appointments (+ 6 [...] 17, 2021 09:45 AM AMBULATORY - MEDICINE [place] [facility] May 04, 2021 09:00 AM AMBULATORY - MEDICINE [place] [facility] Social History: Smoking Status (Most current) and Tobacco Use (All prior to encounter date) This section includes the most current, and the historical, smoking and tobacco-related health factors from the [facility] facility where the Encounter took place.Current Smoking Status This section includes the most current smoking, or tobacco-related health factor, from the VA facility where the Encounter took place. Date/Time Current Smoking Status Comment Facility Oct 29, 2020 10:00 AM VA-TOBACCO USER EVERY DAY [facility] Tobacco Use History This section includes a history of the smoking, or tobacco- related health factors, that were collected on or before the date of the Encounter. The data comes from the [place] facility where the Encounter took place. 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 VA CNT RL [facility]N AM YES [place] [facility] Oct 29, 2020 10:00 VA-TOBACCO USE MED NOTIFY [facility] AM PROVIDER [place] [facility] Oct 29, 2020 10:00 VA-TOBACCO USER EVERY DAY [place] [facility] [place] [facility] Oct 10, 2019 11:00 VA-TOBACCO FORMER USER [place] CNT RL [place] AM [place] [facility] Oct 10, 2019 11:00 VA-TOBACCO QUIT < 1 YEAR [facility] [place] [place] [facility] Oct 26, 2018 07:55 VA-TOBACCO USE > 15 LESS VA C NTRL WSTRN AM THAN 30 YEARS [place] [facility] Oct 26, 2018 07:55 VA-TOBACCO USE ADVICE [place] [facility] [place] [facility] Oct 26, 2018 07:55 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 [facility] [place] [facility] Oct 26, 2018 07:55 VA-TOBACCO USE MED NO [place] [facility] [place] [facility] Oct 26, 2018 07:55 VA-TOBACCO USE WI 30 MIN VA C NTRL W[place] AM OF WAKEUP [place] [facility] Oct 26, 2018 07:55 VA-TOBACCO USER EVERY DAY [facility] [place] [facility] Aug 04, 2017 08:53 CURRENT SMOKER [facility]L WSTR N [place] [facility] Aug 04, 2017 08:53 V1-PT DECLINES REF TO [facility] CNTR L [facility] AM TOBACCO CESS PRGM [place] Aug 04, 2017 08:53 V1-PT DECLINES TOBACCO VA CNT RL W[facility]N AM CESSATION MEDS [place] [facility] Aug 04, 2017 08:53 V1-PT THINKING ABOUT QUIT [facility] CN[facility] [place]ACCO USE [place] [facility] Jan 31, 2017 09:51 QUIT TOBACCO USE IN PAST VA C NTRL WSTRN AM YEAR 31 days [facility] Jan 26, 2016 08:36 CURRENT SMOKER [place] [facility] [place] N [place] [facility] Jan 26, 2016 08:36 V1-PT DECLINES REF TO VA CNTR L W[facility] AM TOBACCO CESS [facility] Jan 26, 2016 08:36 V1-PT DECLINES TOBACCO VA CNT RL [facility] AM CESSATION MEDS [place] [facility] Jan 26, 2016 08:36 V1-PT THINKING ABOUT QUIT [facility] Feb 20, 2015 10:25 QUIT TOBACCO USE IN PAST VA C NTRL W[place]N AM YEAR [place] [facility] June 17, 2014 07:37 CURRENT SMOKER VA CNTRL WSTR N AM Reports being an off and on smo ker -cigarettes [facility] June 17, 2014 07:37 V1-PT DECLINES REF TO VA CNTR L WSTRN AM TOBACCO CESS PR[facility] June 17, 2014 07:37 V1-PT DECLINES TOBACCO VA CNT RL WSTRN AM CESSATION MEDS [place] [facility] June 17, 2014 07:37 V1-PT THINKING ABOUT QUIT VA CNTRL WSTRN AM TOBACCO USE [facility] Sep 14, 2011 09:51 CURRENT SMOKER VA CNTRL WSTR N AM less than a pack a day [place] [facility] Sep 14, 2011 09:51 V1-PT DECLINES REF TO [facility] CNTR L [facility] AM TOBACCO CESS [facility]GM [place] [facility] Sep 14, 2011 09:51 V1-PT DECLINES TOBACCO VA CNT RL WSTRN AM CESSATION MEDS [place] [facility] Sep 14, 2011 09:51 V1-PT THINKING ABOUT QUIT VA CNTRL W[facility] AM TOBACCO USE [place] [facility] Mar 09, 2010 09:32 CURRENT SMOKER VA CNTRL WSTR N AM 1 ppd [place] [facility] Mar 09, 2010 09:32 V1-PT DECLINES TOBACCO VA CNT RL WSTRN AM CESSATION MEDS [place] [facility] Mar 09, 2010 09:32 V1-PT REF TO NON-VA VA CNTRL WSTRN AM TOBACCO CESS PRGM [place] Mar 09, 2010 09:32 V1-PT THINKING ABOUT QUIT VA CNTRL W[facility] AM TOBACCO USE [place] [facility] Sep 29, 2009 02:07 V1-PT DECLINES REF TO VA CNTR L WSTRN PM TOBACCO CESS PRGM [place] Sep 29, 2009 02:07 V1-PT DECLINES TOBACCO VA CNT RL WSTRN PM CESSATION MEDS [place] [facility] Sep 29, 2009 02:07 V1-PT NOT INTERESTED IN VA CN TRL WSTRN PM QUIT TOBACCO USE [place] [facility] Jan 29, 2009 11:00 CURRENT SMOKER VA CNTRL WSTR N AM 1 ppd [place] [facility] Jan 29, 2009 11:00 V1-PT DECLINES TOBACCO VA CNT RL WSTRN AM CESSATION MEDS [place] [facility] Jan 29, 2009 11:00 V1-PT READY TO QUIT VA CNTRL W[facility]N AM TOBACCO USE [place] [facility] Mar 17, 2005 08:36 CURRENT SMOKER VA CNTRL WSTR N [place] [facility] Radiology Reports: +/- 30 days of the [...] the Encounter. The data comes from all [place] treatment facilities. Date/Time Radiology Report Provider Source Dec 22, 2020 01:[address] THORAX W/O CONT: LAURA BANGURA CNT RL WSTRN BRAD CUENCA [id number] -[birth year], [birth year] [facility] Ex Date: DEC 22, 2020@13:48 Req Phys: VIRA CRUZ Pat Loc: CWM/NO/P ACT 1 (Req'g Loc) Img Loc: [place]/CT Service: Unknown (Case [id number] COMPLETE) CT THORAX W/O CONT (CT Detail ed) CPT:70919 Reason for Study: CT chest Clinical History: 1. New 3 mm right upper lobe pulmonary nodule. Recommendation: Surveillance noncontrast chest CT in one year. 2. Moderately advanced emphysematous changes. Report Status: Verified Date Reported: DEC 22, 2020 Date Verified: DEC 22, 2020 Associate Professor Of Kinesiology E-Sig:/ES/Laura Bangura MD Report: EXAM: CT chest [...] right lower lobe nodules image 9-38 prior 9-75. Other 1-2 mm nod ule in the [...] Staff: Laura Bangura MD, Chief of Imaging (Associate Professor Of Kinesiology ) /[facility] Encounter Notes: All associated encounter notes This section contains the clinical notes associated to the Encounter. Date/Time Encounter Note(s) Provider Source Jan 14, 2021 08:16 ADMINISTRATIVE NOTE: ASHLEY NOLASCO ME CN TRL WSTRN AM [facility] TITLE: ADMINISTRATIVE NOTE [facility] TITLE: ADMINISTRATIVE NOTE DATE OF NOTE: JAN 14, 2021@08:16 ENTRY DATE: JAN 14, 2021@08:16:35 AUTHOR: ASHLEY NOLASCO EXP COSIGNER: URGENCY: STATUS: COMPLETED AMSA LEFT MESSAGE FOR TO REMIND HIM OF S CHEDULED COVID BOOSTER ON 01/17/21. /natalie/ ASHLEY NOLASCO ADVANCED INSURANCE VERIFICATION SPECIALIST Signed: 01/14/2021 08:17
--- OUTSIDE RECORDS SUMMARY | 2021-12-29 17:16 | XMS_ITS ---
:1950 Author Organization Department [facility] rs Address [address] [place] [id number] Support Name Relationship Address Phone MARIAN CABRERA Unavailable [address] [place] [phone] MARIAN CABRERA Unavailable [address] [place] [phone] Insurance Providers: All historical and current Section [...] MEDICARE MEDICARE PART Jul 15, PART A [id number] BANG PATIENT (WNR) (M) A 2013 90A 4 BRAD PALACIOS MEDICARE MEDICARE PART Jul 15, PART B [id number] BANG PATIENT (WNR) (M) B 2013A 4 BRAD PALACIOS Selected Encounter This section includes the information on record at [place] for the Encounter. Date/Time Encounter Type Encounter Description Reason Provider Source Apr 24, 2021 09:40 Outpatient Encounter PRIMARY CARE/MEDICINE AM IHE Encounter Template Text not used by [place] Plan of Treatment: Future Appointments (+ 6 months) and Future Tests (+/- 45 days) The Plan of Treatment section includes future care activities for the patient from all [place] treatmentfacilities. This section includes future appointments and future orders which are active, pending orscheduled.Future Appointments This section includes appointments that were scheduled to occur 6 months from the date of the Encounter, up to a maximum of 20 appointments. The data comes from all [place] treatment facilities. Appointment Date/Time Appointment Type Appointment Facili ty Name May 04, 2021 09:00 AM AMBULATORY - MEDICINE [place] [facility] Oct 23, 2021 08:00 AM AMBULATORY - MEDICINE [place] [facility] [place] [facility] Lab Results: +/- 30 days of the encounter This section includes the Chemistry and Hematology Lab Results on record with [place] for the patient. Radiology Reports and Pathology Reports are provided separately, in subsequent sections.Lab Results This section contains the Chemistry/Hematology Results that were resulted 30 days before or 30 daysafter the date of the Encounter. Date/Time Source Result Type Result - Unit Interpretation Reference Range Comment Apr 29, 2021 [place] CN[facility] LIPID PANEL FASTING Specimen Ty pe: SERUM 07:41 AM [place] [facility] No comment enter ed. Ordering Provid er: VIRA CRUZ Report Released Date/Time: Apr 17, 2021 10:45 AM Reporting Lab: [place] [facility] [place] [facility] [address] [facility] [address] Performing Lab: [place] [facility] [place] [facility] [address] [facility] [address] CHOLESTEROL 157 <7-199 TRIGLYCERIDE 49 0-150 LDL calculated 105 0-129 CHOL/HDL 3.7 HDL CHOLESTEROL 42 40-60 Apr 29, 2021 07:41 [facility] CN[facility] W[facility] LIVER FUNCTION Specimen Typ e: SERUM AM [place] [facility] No comment enter ed. Ordering Provid er: VIAR CRUZ Report Released Date/Time: Apr 17, 2021 10:45 AM Reporting Lab: [place] [facility] [place] [facility] [address] [facility] [address] Performing Lab: [place] [facility] [facility] [address] [facility] [address] PROTEIN,TOTAL 6.3 6.0-8.3 ALBUMIN 3.8 3.5-5.0 ALKALINE PHOSPHATASE 86 40-150 AST 15 5-34 ALT 24 <6-55 BILIRUBIN, TOTAL 0.7 0.2-1.2 Apr 29, 2021 07:41 AM [place] [facility] [place] FERRITIN Specimen Type: [facility] No comment enter ed. Ordering Provid er: VIRA CRUZ Report Released Date/Time: Apr 17, 2021 10:45 AM Reporting Lab: [facility] [place] [facility] [address] [facility] [address] Performing Lab: [facility] [place] [facility] [address] [facility] [address] FERRITIN 135.5 20-300 Apr 29, 2021 [facility] BASIC METABOLIC Specimen Type: SERUM 07:41 AM [place] [facility] PANEL (fasting) No comment enter ed. Ordering Provid er: VIRA CRUZ Report Released Date/Time: Apr 17, 2021 10:45 AM Reporting Lab: [facility] [place] [facility] [address] [facility] [address] Performing Lab: [facility] [place] [facility] [address] [facility] [address] UREA NITROGEN 15 7-25 GLUCOSE 110 H 65-100 SODIUM 141 135-145 POTASSIUM 4.4 3.5-5.0 CHLORIDE 104 100-110 CO2 29 20-30 CREATININE, Serum 0.93 0.50-1.40 eGFR (IDMS) 80 >60 Apr 29, 2021 07:41 [facility] CN[facility] W[facility] CBC AND DIFF Specimen Typ e: BLOOD AM [place] [facility] (AUTO) No comment enter ed. Ordering Provid er: VIRA CRUZ Report Released Date/Time: Apr 17, 2021 10:45 AM Reporting Lab: [facility] [place] [facility] [address] [facility] [address] Performing Lab: [facility] [place] [facility] [address] [facility] [address] WBC 7.36 4.50-11.00 RBC 5.20 4.23-5.66 HGB 16.4 12.8-17 HCT 49.4 39.2-50.4 MCV 95.0 82-99 MCHC 33.2 30.8-35.1 PLT 173 140-360 RDW-CV 11.9 L 12.0-16.0 Reagan, Abs 0.59 0.30-1.10 MCH 31.5 26.2-32.6 Neut % 68.0 Lymph % 21.7 Reagan % 8.0 Eos % 1.2 Baso % 0.7 Neut, Abs 5.00 2.20-7.60 Lymph, Abs 1.60 1.00-3.20 Eos, Abs 0.09 0.03-0.44 Baso, Abs 0.05 0.01-0.13 Immature Gran % 0.4 Immature Gran, Abs 0.03 0.00-0.06 Social History: Smoking Status (Most current) and Tobacco Use (All prior to encounter date) This section includes the most current, and the historical, smoking and tobacco-related health factors from the [place] facility where the Encounter took place.Current Smoking Status This section includes the most current smoking, or tobacco-related health factor, from the [place] facility where the Encounter took place. Date/Time Current Smoking Status Comment Facility Oct 29, 2020 10:00 AM VA-TOBACCO USER EVERY DAY [facility] Tobacco Use History This section includes a history of the smoking, or tobacco- related health factors, that were collected on or before the date of the Encounter. The data comes from the [place] facility where the Encounter took place. 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 [facility] [place] [facility] Oct 26, 2018 07:55 VA-TOBACCO USE MED NO [place] CNTR L [place] [facility] Oct 26, 2018 07:55 VA-TOBACCO USE WI 30 MIN VA C NTRL WSTRN AM [facility] Oct 26, 2018 07:55 VA-TOBACCO USER EVERY DAY [facility] [place] [facility] Aug 04, 2017 08:53 CURRENT SMOKER VA CNTRL WSTR N [place] [facility] Aug 04, 2017 08:53 V1-PT DECLINES REF TO VA CNTR L WSTR[facility] AM TOBACCO CESS [facility] Aug 04, 2017 08:53 V1-PT DECLINES TOBACCO VA CNT RL WSTRN AM CESSATION MEDS [facility] Aug 04, 2017 08:53 V1-PT THINKING ABOUT QUIT [facility] Jan 31, 2017 09:51 QUIT TOBACCO USE IN PAST VA C NTRL WSTRN AM YEAR 31 days [facility] Jan 26, 2016 08:36 CURRENT SMOKER [place]L W[place] [facility] Jan 26, 2016 08:36 V1-PT DECLINES REF TO VA CNTR L WSTR[facility] AM TOBACCO CESS PR[facility] Jan 26, 2016 08:36 V1-PT DECLINES TOBACCO VA CNT RL WSTRN AM [facility]ESSATION MEDS [facility] Jan 26, 2016 08:36 V1-PT THINKING ABOUT QUIT [facility] CNTRL [facility] AM [place]ACCO USE [place] [facility] Feb 20, 2015 10:25 QUIT TOBACCO USE IN PAST VA C NTRL W[place] AM YEAR [place] [facility] June 17, 2014 07:37 CURRENT SMOKER VA CNTRL WSTR N AM Reports being an off and on smo ker -cigarettes [facility] June 17, 2014 07:37 V1-PT DECLINES REF TO VA CNTR L WSTR[facility] AM TOBACCO CESS [facility] June 17, 2014 07:37 V1-PT DECLINES TOBACCO VA CNT RL WSTRN AM [facility] MED[facility] June 17, 2014 07:37 V1-PT THINKING ABOUT QUIT VA CNTRL [facility] AM TO[place]ACCO USE [place] [facility] Sep 14, 2011 09:51 CURRENT SMOKER VA CNTRL WSTR N AM less than a pack a day [place] [facility] Sep 14, 2011 09:51 V1-PT DECLINES REF TO VA CNTR L WSTR[facility] AM TOBACCO CESS [facility] [place] [facility] Sep 14, 2011 09:51 V1-PT DECLINES TOBACCO VA CNT RL WSTRN AM CESSATION MEDS [place] [facility] Sep 14, 2011 09:51 V1-PT THINKING ABOUT QUIT VA CNTRL W[facility] AM TOBACCO USE [place] [facility] Mar 09, 2010 09:32 CURRENT SMOKER VA CNTRL WSTR N AM 1 ppd [place] [facility] Mar 09, 2010 09:32 V1-PT DECLINES TOBACCO VA CNT RL WSTRN AM CESSATION MEDS [place] [facility] Mar 09, 2010 09:32 V1-PT REF TO NON-VA [facility] CNTRL WSTR[facility] AM TOBACCO CESS PRGM [place] Mar 09, 2010 09:32 V1-PT THINKING ABOUT QUIT VA CNTRL W[facility] AM TO[place]ACCO USE [place] [facility] Sep 29, 2009 02:07 V1-PT DECLINES REF TO VA CNTR L WSTR[facility] PM TOBACCO CESS PRGM [place] Sep 29, 2009 02:07 V1-PT DECLINES TOBACCO VA CNT RL WSTRN PM CESSATION MEDS [place] [facility] Sep 29, 2009 02:07 V1-PT NOT INTERESTED IN VA CN TRL WSTRN PM QUIT TOBACCO USE [place] [facility] Jan 29, 2009 11:00 CURRENT SMOKER VA CNTRL WSTR N AM 1 ppd [place] [facility] Jan 29, 2009 11:00 V1-PT DECLINES TOBACCO VA CNT RL WSTRN AM CESSATION MEDS [place] [facility] Jan 29, 2009 11:00 V1-PT READY TO QUIT VA CNTRL W[facility] AM TOBACCO USE [place] [facility] Mar 17, 2005 08:36 CURRENT SMOKER [facility] CNTRL WSTR N [place] [facility] Encounter Notes: All associated encounter notes This section contains the clinical notes associated to the Encounter. Date/Time Encounter Note(s) Provider Source Apr 24, 2021 09:40 AM ADMINISTRATIVE NOTE: RANDI HANSON [facility] C NTRL WSTRN LOCAL TITLE: ADMINISTRATIVE NOTE [facility] STANDARD TITLE: ADMINISTRATIVE NOTE DATE OF NOTE: APR 24, 2021@09:40 ENTRY DATE: APR 24, 2021@09:40:52 AUTHOR: RANDI HANSON EXP COSIGNER: URGENCY: STATUS: COMPLETED AMSA left voicemail for to remind him of his upcoming appointment in Primary Care on TuesdayMay 04 @ 9:00am. Writ er let [place] know about Primary Care being in the [facility] building (building [address]) and that there is parking behind the Chapel. Freight Forwarder also let know about fasting labs to be done the week prior to appointment. Freight Forwarder as ked to please call back if has any questions or if this appointment needs to be changed. /natalie/ RANDI HANSON ADVANCED ELEMENTARY READING TUTOR Signed: 04/24/2021 09:41
--- OUTSIDE RECORDS SUMMARY | 2021-12-29 17:16 | XMS_ITS ---
:1950 Author Organization Department [facility] rs Address [address] [place] [id number] Support Name Relationship Address Phone MARINA CABRERA Unavailable [address] EMILIE MENDES [phone] MARIAN CABRERA Unavailable [address] MENDES [address] Insurance Providers: All historical and current Section [...] MEDICARE MEDICARE PART Jul 15, PART A [id number] BANG PATIENT (WNR) (M) A 2013 90A 4 BRAD PALACIOS MEDICARE MEDICARE PART Jul 15, PART B [id number] BANG PATIENT (WNR) (M) B 2013A 4 BRAD PALACIOS Selected Encounter This section includes the information on record at [place] for the Encounter. Date/Time Encounter Type Encounter Reason Provider Source Description Jan 17, 2021 OFFICE O/P EST PRIMARY ICD-10-CM Z23 ADRIANNAZENON GALLEGOS 09:45 AM MINIMAL PROB CARE/MEDICINE Encounter for L immunization with Provider Comments: Encounter for Immunization IHE Encounter Template Text not used by [place] Assessments - Encounter Diagnoses This section includes the primary and secondary diagnoses documented for the Encounter. Date/Time Primary/Secondary Diagnosis Name Provider Source Diagnosis Jan 17, 2021 PRIMARY Encounter for ADRIANNAZENON GALLEGOS [facility] 09:24 AM immunization L [place] [facility] Plan of Treatment: Future Appointments (+ 6 months) and Future Tests (+/- 45 days) The Plan of Treatment section includes future care activities for the patient from all [place] treatmentfacilities. This section includes future appointments and future orders which are active, pending orscheduled.Future Appointments This section includes appointments that were scheduled to occur 6 months from the date of the Encounter, up to a maximum of 20 appointments. The data comes from all [place] treatment facilities. Appointment Date/Time Appointment Type Appointment Facili ty Name May 04, 2021 09:00 AM AMBULATORY - MEDICINE [place] [facility] [place] [facility] Immunizations: All administered on the encounter date This section contains immunizations associated to the Encounter. Immunization Series Date Issued Reaction Comments COVID-19 (MODERNA), MRNA, 3 Jan 17, 2021 MO D; [id number]; 05/09/2021 LNP-S, PF, 100 MCG OR 50 MCG DOSE Social History: Smoking Status (Most current) and [...] 2020 10:00 AM VA-TOBACCO USER EVERY DAY [place] [facility] [place] [facility] Tobacco Use History This section includes a history of the smoking, or tobacco- related health factors, that were collected on or before the date of the Encounter. The data comes from the [place] facility where the Encounter took place. 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 [place] [facility] [place] YES [place] [facility] Oct 29, 2020 10:00 VA-TOBACCO USE MED NOTIFY [place] [facility] [place] PROVIDER [place] [facility] Oct 29, 2020 10:00 VA-TOBACCO USER EVERY DAY [place] [facility] [place] [facility] Oct 10, 2019 11:00 VA-TOBACCO FORMER USER [facility] [place] [facility] Oct 10, 2019 11:00 VA-TOBACCO QUIT < 1 YEAR [facility] C [facility] [place] [facility] Oct 26, 2018 07:55 VA-TOBACCO USE > 15 LESS VA C [facility] AM THAN 30 YEARS [place] [facility] Oct 26, 2018 07:55 VA-TOBACCO USE ADVICE [facility] [place] [facility] Oct 26, 2018 07:55 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 NO [facility] [place] [facility] Oct 26, 2018 07:55 VA-TOBACCO USE MED NO [facility] [place] [facility] Oct 26, 2018 07:55 VA-TOBACCO USE WI 30 MIN [facility] Oct 26, 2018 07:55 VA-TOBACCO USER EVERY DAY [facility] [place] [facility] Aug 04, 2017 08:53 CURRENT SMOKER [facility] [place] [facility] Aug 04, 2017 08:53 V1-PT DECLINES REF TO [facility] TOBACCO CESS PRGM [place] Aug 04, 2017 08:53 V1-PT DECLINES TOBACCO [facility] CESSATION MEDS [place] [facility] Aug 04, 2017 08:53 V1-PT THINKING ABOUT QUIT [facility] TOBACCO USE [place] [facility] Jan 31, 2017 09:51 QUIT TOBACCO USE IN PAST [facility] Jan 26, 2016 08:36 CURRENT SMOKER [facility] [place] [facility] Jan 26, 2016 08:36 V1-PT DECLINES REF TO [facility] TOBACCO CESS [facility] [place] Jan 26, 2016 08:36 V1-PT DECLINES TOBACCO [facility] AM CESSATION MEDS [place] [facility] Jan 26, 2016 08:36 V1-PT THINKING ABOUT QUIT [facility] AM TOBACCO USE [place] [facility] Feb 20, 2015 10:25 QUIT TOBACCO USE IN PAST VA C NTRL WSTRN AM YEAR [place] [facility] June 17, 2014 07:37 CURRENT SMOKER [facility] AM Reports being an off and on smo ker -cigarettes [place] [facility] June 17, 2014 07:37 V1-PT DECLINES REF TO [facility] TOBACCO CESS [facility] [place] [facility] June 17, 2014 07:37 V1-PT DECLINES TOBACCO [facility] AM CESSATION MEDS [place] [facility] June 17, 2014 07:37 V1-PT THINKING ABOUT QUIT [facility] TOBACCO USE [place] [facility] Sep 14, 2011 09:51 CURRENT SMOKER [facility] AM less than a pack a day [place] [facility] Sep 14, 2011 09:51 V1-PT DECLINES REF TO [facility] TOBACCO CESS PRGM [place] Sep 14, 2011 09:51 V1-PT DECLINES TOBACCO [facility] AM CESSATION MEDS [place] [facility] Sep 14, 2011 09:51 V1-PT THINKING ABOUT QUIT [facility] AM TOBACCO USE [place] [facility] Mar 09, 2010 09:32 CURRENT SMOKER [facility] AM 1 ppd [place] [facility] Mar 09, 2010 09:32 V1-PT DECLINES TOBACCO [facility] AM CESSATION MEDS [place] [facility] Mar 09, 2010 09:32 V1-PT REF TO NON-VA [facility] TOBACCO CESS PRGM [place] [facility] Mar 09, 2010 09:32 V1-PT THINKING ABOUT QUIT [facility] AM TOBACCO USE [place] [facility] Sep 29, 2009 02:07 V1-PT DECLINES REF TO [facility] PM TOBACCO CESS PRGM [place] Sep 29, 2009 02:07 V1-PT DECLINES TOBACCO VA [facility] PM CESSATION MEDS [place] [facility] Sep 29, 2009 02:07 V1-PT NOT INTERESTED IN [facility] CN T[facility] PM QUIT TOBACCO USE [place] [facility] Jan 29, 2009 11:00 CURRENT SMOKER VA [facility] N AM 1 ppd [place] [facility] Jan 29, 2009 11:00 V1-PT DECLINES TOBACCO VA [facility] AM CESSATION MEDS [place] [facility] Jan 29, 2009 11:00 V1-PT READY TO QUIT [facility] AM TOBACCO USE [place] [facility] Mar 17, 2005 08:36 CURRENT SMOKER VA [facility] N AM [facility] Radiology Reports: +/- 30 days of [...] the Encounter. The data comes from all [place] treatment facilities. Date/Time Radiology Report Provider Source Dec 22, 2020 01:[address] THORAX W/O CONT: LAURA BANGURA [place] [facility] BRAD CUENCA [id number] -[birth year], [phone] M [facility] Exm Date: DEC 22, 2020@13:48 Req Phys: ANTHONYVIRA JAWSANTHOSH Pat Loc: CWM/NO/P ACT 1 (Req'g Loc) Img Loc: NHM/CT Service: Unknown (Case [id number] COMPLETE) CT THORAX W/O CONT (CT Detail ed) CPT:21291 Reason for Study: CT chest Clinical History: 1. New 3 mm right upper lobe pulmonary nodule. Recommendation: Surveillance noncontrast chest CT in one year. 2. Moderately advanced emphysematous changes. Report Status: Verified Date Reported: DEC 22, 2020 Date Verified: DEC 22, 2020 Sports Athletic Trainer E-Sig:/ES/Laura Bangura MD Report: EXAM: CT chest [...] Staff: Laura Bangura MD, Chief of Imaging (Sports Athletic Trainer ) /[facility] Encounter Notes: All associated encounter notes This section contains the clinical notes associated to the Encounter. Date/Time Encounter Note(s) Provider Source Jan 17, 2021 09:24 AM PREVENTIVE MEDICINE NURSING NOTE: SHAY RODAS [place] [facility] LOCAL TITLE: CLINICAL REMINDERS/NURSING [place] [facility] STANDARD TITLE: PREVENTIVE MEDICINE NURSING NOTE DATE OF NOTE: JAN 17, 2021@09:24 ENTRY DATE: JAN 17, 2021@09:24:14 AUTHOR: ZENON RODAS EXP COSIGNER: URGENCY: STATUS: COMPLETED COVID-19 Immunization: The patient was given the EUA fact sheet for th is vaccine which lists the benefits and side effects of the vaccine and [facility] reviews the risks of the vaccine. The fact sheet was reviewed with the p atient and they were given an opportunity to ask questions. The patient de nied any prior severe reaction to this vaccine or its components or a severe allergic reaction such as anaphylaxis to any vaccine or to any in jectable therapy. The patient gave verbal consent to receive the vacc ine. The patient received Moderna COVID-19 Vaccine 0 .25 ml IM. Series: Series 3 MVX (Manuf); Lot#; Exp Date: MOD; [id number]; 04/15 Administration Anatomic site: Left Deltoid Vaccine administered without complications. The patient was advised to remain in the facility for 15 minute s post vaccination. The patient was given a completed COVID-19 vacc ination record card, a copy of the [place] Side Effects and Adverse Event s Reporting Fact Sheet and instructed on how to report any adver se reactions. /natalie/ SAMUEL GARCIA, RN, CNL PRIMARY CARE TEAM NURSE Signed: 01/17/2021 09:25
[2021-12-29 17:17] LABS: MANUAL DIFF FLAG NO
[2021-12-29 17:19] LABS: Basophils Percent Auto 0.6 % (0-2); Eosinophils Absolute Auto 0.1 X10*3/uL (0.0-0.4); Eosinophils Percent Auto 1.5 % (0-4); Hematocrit 44.7 % (42.0-52.0); Imm Gran Abs Auto 0.02 X10*3/uL (0.00-0.03); Imm Gran Pct Auto 0.3 % (0.0-0.4); Lymphocytes Absolute Auto 2.2 X10*3/uL (1.2-4.9); Lymphocytes Percent Auto 30.6 % (20-40); Mean Corpuscular HGB Conc 33.6 g/dl (31.0-36.0); Mean Corpuscular Hemoglobin 31.6 pg (27.0-33.0); Mean Corpuscular Volume 94.1 fL (80.0-98.0); Mean Platelet Volume 9.8 fL (9.4-12.4); Monocytes Absolute Auto 0.6 X10*3/uL (0.1-1.2); Monocytes Percent Auto 8.4 % (2-11); Neutrophils Absolute Auto 4.2 x10*3/uL (2.0-8.3); Neutrophils Percent Auto 58.6 % (45-73); Platelet Count 172 X10*3/uL (160-400); Red Blood Count 4.75 X10*6/uL (4.60-5.80); Red Cell Distribution Width 12.8 % (11.0-16.0); White Blood Count 7.2 X10*3/uL (4.8-10.8)
[2021-12-29] MEDS: 0.9 % Sodium Chloride 1,000 ML 999 ML IV ×2 (17:19→17:45)
[2021-12-29 17:42] LABS: Alanine Aminotransferase 30 U/L (0-40); Albumin Level 3.7 g/dL (3.5-5.0); Alkaline Phosphatase 81 U/L (39-117); Anion Gap 12 (12-20); Aspartate Amino Transferase 18 U/L (5-37); Bilirubin Total 0.3 mg/dL (0.0-1.0); Blood Urea Nitrogen 16 mg/dL (9-16); Calcium 8.8 mg/dL (8.4-10.2); Carbon Dioxide 32 mmol/L (22-29); Chloride 102 mmol/L (96-108); Creatinine Clr Calc Pharmacy 93.3; Estimated Glomerular Filt Rate > 60; Glucose Random 152 mg/dL (60-115); Potassium 4.1 mmol/L (3.3-5.1); Prothrombin Time 11.5 SEC (10.0-13.1); Sodium 142 mmol/L (135-145); Total Protein 5.8 g/dL (6.5-8.0)
[2021-12-29 17:44] LABS: Partial Thromboplastin Time 25.9 SEC (26.0-36.4)
[2021-12-29 17:48] LABS: B Type Natriuretic Peptide 14 pg/mL (<100); Troponin-I High Sensitivity < 3.5 ng/L (<3.5-35.0)
[2021-12-29] MEDS: iohexoL 350 MG/ML 100 ML INFUS..BTL IV (20:36)
[2021-12-29 20:43] VITALS: BP 100/64; BP 108/68; PULSE 79; PULSE 85
[2021-12-29 20:45] VITALS: BP 108/65; PULSE 93
[2021-12-29 21:49] LABS: Troponin-I High Sensitivity < 3.5 ng/L (<3.5-35.0)
[2021-12-29 22:26] VITALS: BP 108/65; PULSE 93; RESP 18; O2SAT 95
--- NOTE | 2021-12-29 23:20 | PC.NURSE ---
pt ambulatory at time of discharge. iv removed. pt denies pain at this time. discharge packet provided to pt. pt verbalized understanding of discharge plan
== END 2021-12-29 23:21 | disposition home or self-care (01) ==
PROVIDERS: Physician Assistant; Emergency Provider Internal Medicine; PCP Obstetrics & Gynecology
DX: R55 Syncope and collapse (principal); R51.9 Headache, unspecified; M54.2 Cervicalgia; R10.9 Unspecified abdominal pain; R06.02 Shortness of breath; Z79.899 Other long term (current) drug therapy
CPT/HCPCS: 36415; 70450; 71275; 72125; 74177; 80053; 82947; 83880; 84484; 85025; 85610; 85730; 93005; 96360; 96361; 99284; Q9967

== ENCOUNTER 2022-04-02 08:57 | Outpatient (REF) | payer MEDICARE, SELFPAY | END 2022-04-02 08:58 | disposition home or self-care (01) | LOC: HO.BBR 08:57 | PROVIDERS: Visit Provider Internal Medicine | DX: Z13.89 Encounter for screening for other disorder (principal) ==

== ENCOUNTER 2022-05-07 08:57 | Outpatient (REF) | payer MEDICARE, SELFPAY | END 2022-05-07 08:58 | disposition home or self-care (01) | LOC: HO.BBR 08:57 | PROVIDERS: Visit Provider Internal Medicine | DX: Z13.89 Encounter for screening for other disorder (principal) ==

== ENCOUNTER 2022-08-27 07:56 | Outpatient (REF) | payer MEDICARE, SELFPAY | END 2022-08-27 07:57 | disposition home or self-care (01) | LOC: HO.BBR 07:56 | PROVIDERS: Visit Provider Internal Medicine | DX: Z13.89 Encounter for screening for other disorder (principal) ==

== ENCOUNTER 2023-03-17 13:43 | Outpatient (REF) | payer OTHER, SELFPAY | END 2023-03-17 13:44 | disposition home or self-care (01) | LOC: HO.BBR 13:43 | PROVIDERS: Visit Provider Internal Medicine | DX: Z13.89 Encounter for screening for other disorder (principal) ==

== ENCOUNTER 2023-04-06 09:28 | Outpatient (AMB) | payer OTHER, SELFPAY ==
[2023-04-06 09:42] VITALS: BP 128/87; PULSE 93; O2SAT 92; BMI 33.4
--- NOTE | 2023-04-06 09:42 | MHC.OFFVIS ---
Intake Vital Signs 04/06/23 09:42 Height 6 ft Weight 246 lb BMI 33.4 BP 128/87 Blood Pressure Location Lt brachial Position Sitting Pulse 93 Pulse Source Doppler Pulse Oximetry (%) 92 Oxygen Delivery Method Room Air Intake Visit Reasons: emphysema Allergies No Known Allergies Allergy (Verified 04/06/23 09:46) HPI emphysema HPI Details 72-year-old gentleman, recent 60 pack-year smoker, also underlying history of hemochromatosis on phlebotomy referred for evaluation of his pulmonary concerns. Patient states that he has been using Wixela and Spiriva together with albuterol MDI for underlying emphysema. Though, with suboptimal control of his symptoms. He never had pulmonary function testing. He does have recent CT chest from October of 2022 showing a new 7 mm nodule and he has a follow-up scan ordered for April of 2023 [facility]. He denies prior personal history of lung disease. He denies exposure to industrial dusts. [facility] Social History (Updated 04/06/23 @ 09:48 by Charley Galan Jovan) Patient Tobacco Use Status: Former Tobacco user Tobacco use type: Cigarette Years Smoked: smoked for 60 years 1PPD, quit a few days ago. started at 11 Review of Systems Const Denies daytime sleepiness, Denies excessive sweating, Denies fatigue, Denies fever(s), Denies lethargy, Denies malaise, Denies night sweats, Denies snoring and Denies weight loss Eyes Denies blurry vision and Denies itchy eyes ENT Denies nasal congestion, Denies post nasal drip, Denies sinus pain, Denies sinus pressure and Denies other ( Thrush) Card Denies chest pain, Denies pedal edema, Denies dyspnea, Reports dyspnea on exertion, Denies orthopnea and Denies paroxysmal nocturnal dyspnea Resp Denies cough, Denies hemoptysis, Denies excessive phlegm production, Denies dyspnea, Reports dyspnea on exertion, Denies snoring and Denies wheezing GI Denies abdominal pain and Denies heartburn Musc Denies myalgias, Denies arthralgias and Denies joint swelling Skin/Breast Denies rash Neuro Denies memory loss and Denies seizure-like activity Psych Denies abnormal sleep pattern, Denies anxiety and Denies memory loss Endo Denies excessive sweating, Denies fatigue and Denies heat intolerance Colton/Lymph Denies easy bruising Aller/Immun Denies itchy eyes, Denies seasonal rhinorrhea and Denies wheezing Physical Exam Vital Signs: Last Vital Signs Pulse 93 04/06/23 09:42 BP 128/87 04/06/23 09:42 Pulse Ox 92 04/06/23 09:42 Oxygen Delivery Method Room Air 04/06/23 09:42 BMI result Body Mass Index 33.4 Const General: no acute distress and alert Nutritional Appearance: obese Orientation/consciousness: Other orientation findings ( oriented) HEENT Head: Yes atraumatic Eyes General: appearance normal, both eyes and all related structures Sclerae: sclerae normal EOM: EOMs intact bilaterally Neck Neck: Yes supple Lymphatic: no lymphadenopathy noted Resp Effort & Inspection: normal respiratory effort and no use of accessory muscles Auscultation: clear to auscultation bilaterally Cardio Rate: regular rate Rhythm: regular rhythm Heart sounds: no gallops, no murmurs and no rubs Skin General skin exam: other ( warm) Extrem General: No clubbing, No cyanosis and No edema Assessment & Plan Assessment & Plan (1) COPD (chronic obstructive pulmonary disease): Code(s): J44.9 - Chronic obstructive pulmonary disease, unspecified Plan: Suboptimal control on Wixela, Spiriva, and albuterol MDI. Will add theophylline. Will obtain full PFT. (2) Pulmonary nodules: Code(s): R91.8 - Other nonspecific abnormal finding of lung field Plan: New 7 mm nodule noted on CT chest in October of 2022, [facility]. Orders: Orders PFT pulmonary function test Today J44.9 - Chronic obstructive pulmonary disease, unspecified Medications: New theophylline ER 400 mg PO DAILY 30 tabs 6RF 30 days J44.9 - Chronic obstructive pulmonary disease, unspecified Coding Level of Care Code New Pt Level 4 (51400) Diagnoses COPD (chronic obstructive pulmonary disease) J44.9 Pulmonary nodules R91.8
== END 2023-04-06 10:07 | disposition home or self-care (01) ==
PROVIDERS: PCP Obstetrics & Gynecology; Visit Provider Internal Medicine Pulmonary Disease
DX: J44.9 Chronic obstructive pulmonary disease, unspecified (principal); R91.8 Other nonspecific abnormal finding of lung field
CPT/HCPCS: 99204

== ENCOUNTER → 2023-04-06 09:28 | Outpatient (BNVA) | payer OTHER, SELFPAY | PROVIDERS: PCP Obstetrics & Gynecology; Visit Provider Internal Medicine Pulmonary Disease | DX: J44.9 Chronic obstructive pulmonary disease, unspecified (principal); R91.8 Other nonspecific abnormal finding of lung field | CPT/HCPCS: 99202 ==

== ENCOUNTER 2023-04-14 10:51 | Outpatient (REF) | payer OTHER, SELFPAY ==
--- NOTE | 2023-04-14 13:07 | PFT_ITS ---
Flows: FEV1: 60 % of predicted at 1.94 L FVC: 76 % of predicted at 3.30 L FEV1/FVC: 59 % Bronchodilator response: Absent Volumes: No lung volume measurements available secondary to a technical issue. Diffusion capacity: Normal Impression: Moderate obstructive ventilatory defect with no bronchodilator response. No lung volume measurements available secondary to a technical issue. MTDD
[2023-04-15 09:29] VITALS: PULSE 82; RESP 16; O2SAT 96
== END 2023-04-14 10:52 | disposition home or self-care (01) ==
LOC: HO.RESP 10:51
PROVIDERS: PCP Obstetrics & Gynecology; Visit Provider Internal Medicine Pulmonary Disease
DX: J44.9 Chronic obstructive pulmonary disease, unspecified (principal)
CPT/HCPCS: 94010; 94618; 94640; 94727; 94729

== ENCOUNTER 2023-04-14 11:44 | Outpatient (AMB) | payer OTHER, SELFPAY ==
--- NOTE | 2023-04-14 11:45 | AM.OFFVISNUR ---
Intake Intake Visit Reasons: 6MW Allergies No Known Allergies Allergy (Verified 04/06/23 09:46) Office Procedures 6 Minute Walk Time:: 11:35 SPO2 % at rest: 93 Pulse at rest: 88 SPO2 % during excercise: 92 Pulse during excercise: 110 SPO2 % after excercise: 93 Pulse after excercise: 104 Distance in yards walked: 500 Rohan Score: 5 6 Minute Walk (with oxygen) Performance Observations: Patient ambulated on level ground on R/A, patient had no complaints no dyspnea noted, no supplemental O2 required for exertion. [address]187 - 6 Minute Walk Coding CPT Codes Coding ([id number])
[2023-04-14 11:48] VITALS: PULSE 88; O2SAT 93
== END 2023-04-14 11:49 | disposition home or self-care (01) ==
LOC: HO.HPS 11:46
PROVIDERS: PCP Obstetrics & Gynecology; Referring Provider Internal Medicine; Visit Provider Internal Medicine Pulmonary Disease
DX: J44.9 Chronic obstructive pulmonary disease, unspecified (principal)
CPT/HCPCS: 94060; 94618; 94729

== ENCOUNTER 2023-04-21 09:52 | Outpatient (REF) | payer OTHER, SELFPAY | END 2023-04-21 09:53 | disposition home or self-care (01) | LOC: HO.BBR 09:52 | PROVIDERS: PCP Internal Medicine; Visit Provider Internal Medicine | DX: Z13.89 Encounter for screening for other disorder (principal) ==

== ENCOUNTER 2023-05-24 09:07 | Outpatient (AMB) | payer OTHER, SELFPAY ==
[2023-05-24 09:09] VITALS: BP 124/72; PULSE 97; O2SAT 90; BMI 33.9
--- NOTE | 2023-05-24 09:09 | MHC.OFFVIS ---
Intake Vital Signs 05/24/23 09:09 Height 6 ft Weight 250 lb 3.594 oz BMI 33.9 BP 124/72 Blood Pressure Location Lt brachial Position Sitting Pulse 97 Pulse Source Doppler Pulse Oximetry (%) 90 L Oxygen Delivery Method Room Air Intake Visit Reasons: PFT Follow Up/Emphysema Allergies No Known Allergies Allergy (Verified 05/24/23 09:13) HPI PFT Follow Up/Emphysema HPI Details 72-year-old gentleman, recent 60 pack-year smoker, also underlying history of hemochromatosis on phlebotomy now followed for moderate COPD. He has been using Wixela, theophylline, and Spiriva together with albuterol MDI for underlying emphysema with reasonable control. Patient had a follow-up CT chest that per his report shows a decreasing pulmonary nodule. He denies any recent exacerbations. [facility] Social History (Updated 05/24/23 @ 09:15 by Charley Galan Jovan) Patient Tobacco Use Status: Current someday Tobacco user Tobacco use type: Cigarette Years Smoked: smoked for 60 years 1PPD, quit a few days ago. started at 11 Review of Systems Const Denies daytime sleepiness, Denies excessive sweating, Denies fatigue, Denies fever(s), Denies lethargy, Denies malaise, Denies night sweats, Denies snoring and Denies weight loss Eyes Denies blurry vision and Denies itchy eyes ENT Denies nasal congestion, Denies post nasal drip, Denies sinus pain, Denies sinus pressure and Denies other ( Thrush) Card Denies chest pain, Denies pedal edema, Denies dyspnea, Denies orthopnea and Denies paroxysmal nocturnal dyspnea Resp Denies cough, Denies hemoptysis, Denies excessive phlegm production, Denies dyspnea, Denies snoring and Denies wheezing GI Denies abdominal pain and Denies heartburn Musc Denies myalgias, Denies arthralgias and Denies joint swelling Skin/Breast Denies rash Neuro Denies memory loss and Denies seizure-like activity Psych Denies abnormal sleep pattern, Denies anxiety and Denies memory loss Endo Denies excessive sweating, Denies fatigue and Denies heat intolerance Colton/Lymph Denies easy bruising Aller/Immun Denies itchy eyes, Denies seasonal rhinorrhea and Denies wheezing Physical Exam Vital Signs: Last Vital Signs Pulse 97 05/24/23 09:09 BP 124/72 04/09/24 09:09 Pulse Ox 90 L 05/24/23 09:09 Oxygen Delivery Method Room Air 05/24/23 09:09 BMI result Body Mass Index 33.9 Const General: no acute distress and alert Nutritional Appearance: obese Orientation/consciousness: Other orientation findings ( oriented) HEENT Head: Yes atraumatic Eyes General: appearance normal, both eyes and all related structures Sclerae: sclerae normal EOM: EOMs intact bilaterally Neck Neck: Yes supple Lymphatic: no lymphadenopathy noted Resp Effort & Inspection: normal respiratory effort and no use of accessory muscles Auscultation: clear to auscultation bilaterally Cardio Rate: regular rate Rhythm: regular rhythm Heart sounds: no gallops, no murmurs and no rubs Skin General skin exam: other ( warm) Extrem General: No clubbing, No cyanosis and No edema Assessment & Plan Assessment & Plan (1) COPD (chronic obstructive pulmonary disease): Code(s): J44.9 - Chronic obstructive pulmonary disease, unspecified Plan: Results of pulmonary function test reviewed, underlying moderate COPD now well controlled on Spiriva, Wixela, theophylline, and albuterol MDI. Continue current regimen. (2) Pulmonary nodules: Code(s): R91.8 - Other nonspecific abnormal finding of lung field Plan: Patient had a follow-up CT chest for his previously not 7 mm pulmonary nodule at [place]. official read is not available for this appointment. Patient states that read shows decreasing pulmonary nodule. Will request results. If nodule indeed is not increasing, will repeat CT chest in 12 months. Coding Level of Care Code Est Pt Level 4 (08951) Diagnoses COPD (chronic obstructive pulmonary disease) J44.9 Pulmonary nodules R91.8
== END 2023-05-24 09:27 | disposition home or self-care (01) ==
PROVIDERS: PCP Obstetrics & Gynecology; Referring Provider Internal Medicine; Visit Provider Internal Medicine Pulmonary Disease
DX: J44.9 Chronic obstructive pulmonary disease, unspecified (principal); R91.8 Other nonspecific abnormal finding of lung field
CPT/HCPCS: 99214

== ENCOUNTER → 2023-05-24 09:07 | Outpatient (BNVA) | payer OTHER, SELFPAY | PROVIDERS: PCP Obstetrics & Gynecology; Visit Provider Internal Medicine Pulmonary Disease | DX: J44.9 Chronic obstructive pulmonary disease, unspecified (principal); R91.8 Other nonspecific abnormal finding of lung field | CPT/HCPCS: 99212 ==

== ENCOUNTER 2023-07-26 08:49 | Outpatient (REF) | payer OTHER, SELFPAY | END 2023-07-26 08:50 | disposition home or self-care (01) | LOC: HO.BBR 08:49 | PROVIDERS: PCP Internal Medicine; Visit Provider Internal Medicine | DX: Z13.89 Encounter for screening for other disorder (principal) ==

== ENCOUNTER 2023-08-30 09:09 | Outpatient (REF) | payer OTHER, SELFPAY | END 2023-08-30 09:10 | disposition home or self-care (01) | LOC: HO.BBR 09:09 | PROVIDERS: PCP Internal Medicine; Visit Provider Internal Medicine | DX: Z13.89 Encounter for screening for other disorder (principal) ==

== ENCOUNTER 2023-09-29 08:47 | Outpatient (REF) | payer OTHER, SELFPAY | END 2023-09-29 08:48 | disposition home or self-care (01) | LOC: HO.BBR 08:47 | PROVIDERS: PCP Internal Medicine; Visit Provider Internal Medicine | DX: Z13.89 Encounter for screening for other disorder (principal) ==

== ENCOUNTER 2023-11-07 09:15 | Outpatient (REF) | payer OTHER, SELFPAY | END 2023-11-07 09:16 | disposition home or self-care (01) | LOC: HO.BBR 09:15 | PROVIDERS: Visit Provider Internal Medicine | DX: Z13.89 Encounter for screening for other disorder (principal) ==

== ENCOUNTER 2023-11-25 09:24 | Outpatient (AMB) | payer OTHER, SELFPAY ==
[2023-11-25 09:34] VITALS: BP 122/78; PULSE 100; O2SAT 93; BMI 35.4
--- NOTE | 2023-11-25 09:34 | MHC.OFFVIS ---
Vital Signs 11/25/23 09:34 Height 6 ft Weight 261 lb 3.964 oz BMI 35.4 BP 122/78 Blood Pressure Location Rt brachial Position Sitting Pulse 100 Pulse Source Doppler Pulse Oximetry (%) 93 Oxygen Delivery Method Room Air Intake Visit Reasons: Emphysema Allergies No Known Allergies Allergy (Verified 05/24/23 09:13) HPI HPI Emphysema: Details: 73-year-old gentleman, recent 60 pack-year smoker, also underlying history of hemochromatosis on phlebotomy now followed for moderate COPD. He has been using Wixela and Spiriva together with albuterol MDI for underlying emphysema with reasonable control. He was tried on theophylline, however he did not have any symptomatic benefit. Patient had a follow-up CT chest at [facility] in April of 2023 that showed decreasing pulmonary nodule. He denies any recent exacerbations. [facility] Medical History (Updated 11/25/23 @ 09:50 by Juana Umanzor PA-C) Hemochromatosis Pulmonary nodules COPD (chronic obstructive pulmonary disease) Personal history of nicotine dependence BPH (benign prostatic hyperplasia) Erectile dysfunction Social History (Updated 05/24/23 @ 09:15 by Charley Galan [facility]) Patient Tobacco Use Status: Current someday Tobacco user Tobacco use type: Cigarette Years Smoked: smoked for 60 years 1PPD, quit a few days ago. started at 11 Review of Systems Const Denies daytime sleepiness, Denies excessive sweating, Denies fatigue, Denies fever(s), Denies lethargy, Denies malaise, Denies night sweats, Denies snoring and Denies weight loss Eyes Denies blurry vision and Denies itchy eyes ENT Denies nasal congestion, Denies post nasal drip, Denies sinus pain, Denies sinus pressure and Denies other ( Thrush) Card Denies chest pain, Denies pedal edema, Denies dyspnea, Reports dyspnea on exertion, Denies orthopnea and Denies paroxysmal nocturnal dyspnea Resp Denies cough, Denies hemoptysis, Denies excessive phlegm production, Denies dyspnea, Reports dyspnea on exertion, Denies snoring and Denies wheezing GI Denies abdominal pain and Denies heartburn Musc Denies myalgias, Denies arthralgias and Denies joint swelling Skin/Breast Denies rash Neuro Denies memory loss and Denies seizure-like activity Psych Denies abnormal sleep pattern, Denies anxiety and Denies memory loss Endo Denies excessive sweating, Denies fatigue and Denies heat intolerance Colton/Lymph Denies easy bruising Aller/Immun Denies itchy eyes, Denies seasonal rhinorrhea and Denies wheezing Physical Exam Vital Signs: Last Vital Signs Pulse 100 11/25/23 09:34 BP 122/78 11/25/23 09:34 Pulse Ox 93 11/25/23 09:34 Oxygen Delivery Method Room Air 11/25/23 09:34 BMI result Body Mass Index 35.4 Const General: no acute distress and alert Nutritional Appearance: obese Orientation/consciousness: Other orientation findings ( oriented) HEENT Head: Yes atraumatic Eyes General: appearance normal, both eyes and all related structures Sclerae: sclerae normal EOM: EOMs intact bilaterally Neck Neck: Yes supple Lymphatic: no lymphadenopathy noted Resp Effort & Inspection: normal respiratory effort and no use of accessory muscles Auscultation: clear to auscultation bilaterally Cardio Rate: regular rate Rhythm: regular rhythm Heart sounds: no gallops, no murmurs and no rubs Skin General skin exam: other ( warm) Extrem General: No clubbing, No cyanosis and No edema Assessment & Plan Assessment & Plan (1) COPD (chronic obstructive pulmonary disease): Code(s): J44.9 - Chronic obstructive pulmonary disease, unspecified Category: Medical Plan: Reasonable control on current regimen of Wixela, albuterol MDI, and Spiriva. Continue current regimen. Will refer to Pulmonary Rehab. (2) Personal history of nicotine dependence: Comment: (onset 11yo, 1ppd x 60yrs - recently quitting 2023 - does [facility]) Code(s): Z87.891 - Personal history of nicotine dependence Category: Medical Plan: Results of CT scan from April of 2023 reviewed, decreasing pulmonary nodules. Continue with yearly screening, next in April of 2024. Orders: Orders Pulmonary Rehab Today J44.9 - Chronic obstructive pulmonary disease, unspecified Coding Level of Care Code Est Pt Level 4 (48816) Diagnoses COPD (chronic obstructive pulmonary disease) J44.9 Personal history of nicotine dependence Z87.891
== END 2023-11-25 09:55 | disposition home or self-care (01) ==
PROVIDERS: PCP Obstetrics & Gynecology; Referring Provider Internal Medicine; Visit Provider Internal Medicine Pulmonary Disease
DX: J44.9 Chronic obstructive pulmonary disease, unspecified (principal); Z87.891 Personal history of nicotine dependence
CPT/HCPCS: 99214

== ENCOUNTER → 2023-11-25 09:24 | Outpatient (BNVA) | payer OTHER, SELFPAY | PROVIDERS: PCP Obstetrics & Gynecology; Visit Provider Internal Medicine Pulmonary Disease | DX: J43.9 Emphysema, unspecified (principal); Z87.891 Personal history of nicotine dependence | CPT/HCPCS: 99212 ==

== ENCOUNTER 2023-12-07 08:57 | Outpatient (REF) | payer OTHER, SELFPAY | END 2023-12-07 08:58 | disposition home or self-care (01) | LOC: HO.BBR 08:57 | PROVIDERS: Visit Provider Internal Medicine | DX: Z13.89 Encounter for screening for other disorder (principal) ==

== ENCOUNTER 2024-02-13 12:57 | Outpatient (REF) | payer OTHER, SELFPAY ==
--- OUTSIDE RECORDS SUMMARY | 2024-02-13 13:01 | XMS_ITS | Continuity of Care Document ---
Author Name [facility] Organization [facility] Care Team Providers Care Government Teacher Name Role Phone [facility] Unavailable Unavailable Problems Combined list of problems from Department of Defense and Veterans Affairs facilities. It does not include entries that were removed or entered in error. Problem Status Onset Date Problem Type Date of Resolution Comments Source Hemochromatosis (SNOMED [place] 434069846) Active 02/14/18 96 Condition Nov 11, 2023 Entered By: PRINCESS RAMON Comment: keep HCT <16, ferritin <200. phlebotomy at [facility] changed to every other month, 450cc [facility] Benign prostatic hyperplasia Active Condition [facility] Centriacinar emphysema Active Condition [facility] Depressive Disorder NEC (ICD-9-CM 311.) Active Condition [facility] Elevated Prostate Specific Antigen (PSA) (ICD-9-CM 790.93) Active Condition [facility] Erectile dysfunction (SNOMED CT 345694146) Active Condition [facility] Hemochromatosis Active Condition [facility] Impacted cerumen * (ICD-9-CM 380.4) Active Condition [facility] Impaired fasting glucose Active Condition [facility] Nicotine dependence (SNOMED CT 74845253) Active Condition [facility]esity Active Condition [facility] 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 [facility] Encounter for Vocational Therapy (ICD-9-CM V57.22) Inactive Condition 03/09/2010 [facility] Lack of Housing Inactive Condition 03/09/2010 [facility] Microscopic Hematuria Inactive Condition 04/01/2010 [facility] Diagnosis: ICD-10-CM L57.0 Actinic keratosis Active Diagnosis [facility] Diagnosis: ICD-10-CM J43.2 Centrilobular emphysema Active Diagnosis [facility] Diagnosis: ICD-10-CM R91.1 Solitary pulmonary nodule Active Diagnosis [facility] Diagnosis: ICD-10-CM Z46.0 Encounter for fit/adjst of spectacles and contact lenses Active Diagnosis [facility] Diagnosis: ICD-10-CM 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 Medication Details Route Status Patient Instructions Prescription Expires Prescription Number Last Dispense Date Ordering Provider Order Date Order Qty Source ALBUTEROL 90MCG/ACTUA T (CFC-F) INHL,ORAL,8 .5GM DOSE COUNTER INHALE 2 PUFFS BY MOUTH FOUR TIMES DAILY NEEDED FOR BREATHIN G RESPIR ATORY (INHAL ATION) ACTIVE 11/25/2024 [id number] 4 FURCOLO,T PATY 2023 3 [facility] ALBUTEROL 90MCG/ACTUA T (CFC-F) INHL,ORAL,8 .5GM DOSE COUNTER INHALE 2 PUFFS BY MOUTH FOUR TIMES DAILY NEEDED FOR BREATHIN G RESPIR ATORY (INHAL ATION) DISCONT INUED 08/16/2024 [id number] 4 FURCOLO,T PATY 2023 1 [facility] ALBUTEROL 90MCG/ACTUA T (CFC-F) INHL,ORAL,8 .5GM DOSE COUNTER INHALE 2 PUFFS BY MOUTH FOUR TIMES DAILY NEEDED FOR BREATHIN G RESPIR ATORY (INHAL ATION) DISCONT INUED 07/06/2023 [id number] 4 [facility] JAWED 2022 1 [facility] CARBOXYMETH YLCELLULOSE NA 0.5% SOLN,OPH INSTILL 1 DROP INTO EACH EYE FOUR TIMES DAILY NEEDED FOR DRY EYE OPHTHA LMIC ACTIVE 03/01/2024 [id number] Jas CAMARA ICHELE 2023 45 [facility] FINASTERIDE 5MG TAB TAKE ONE TABLET BY MOUTH ONCE DAILY FOR PROSTATE ORAL 01/13/2024 [id number] 4 [facility] JAW[facility] 2022 90 [facility] FLUTICASONE 250MCG/SALM ETEROL 50MCG INHL,ORAL,D ISKUS,60 INHALE 1 PUFF BY MOUTH TWICE DAILY FOR BREATHIN G - RINSE MOUTH AFTER USE RESPIR ATORY (INHAL ATION) ACTIVE 08/16/2024 [id number] 4 FURCOLO,T PATY 2023 1 [facility] FLUTICASONE 250MCG/SALM ETEROL 50MCG INHL,ORAL,D ISKUS,60 INHALE 1 PUFF BY MOUTH TWICE DAILY FOR BREATHIN G - RINSE MOUTH AFTER USE RESPIR ATORY (INHAL ATION) DISCONT INUED 01/13/2024 [id number] 4 [facility] JAW[facility] 2022 1 [facility] LIDOCAINE 5% PATCH APPLY 1 PATCH TOPICALL Y ONCE DAILY FOR NERVE PAIN (LEAVE PATCH ON FOR 12 HOURS, THEN REMOVE PATCH) TOPICA L ACTIVE 11/11/2024 [id number] 4 FURCOLO,T PATY 2023 90 [facility] TAMSULOSIN HCL 0.4MG CAP TAKE ONE CAPSULE BY MOUTH AT BEDTIME ORAL ACTIVE 08/16/2024 [id number] 4 FURCOLO,T PATY 2023 90 [facility] TAMSULOSIN HCL 0.4MG CAP TAKE ONE CAPSULE BY MOUTH AT BEDTIME ORAL DISCONT INUED 01/13/2024 [id number] 4 [facility] CR[facility] AMMED [facility] 2022 [facility] THEOPHYLLIN E 400MG 24HR TAB,SA TAKE ONE TABLET BY MOUTH ONCE DAILY ORAL DISCONT INUED BY PROVIDE R 04/06/2024 [id number] LAMONT,AN BARBARA 2023 30 [facility] TIOTROPIUM 2.5MCG/ACTU AT INHL,ORAL,6 0D,4GM INHALE 2 PUFFS BY MOUTH ONCE DAILY RESPIR ATORY (INHAL ATION) ACTIVE 08/16/2024 [id number] 4 FURCOLO,T PATY 2023 1 [facility] TIOTROPIUM 2.5MCG/ACTU AT INHL,ORAL,6 0D,4GM INHALE 2 PUFFS BY MOUTH ONCE DAILY RESPIR ATORY (INHAL ATION) DISCONT INUED 01/13/2024 [id number] 4 [facility] 2022 1 [facility] Allergies, Adverse Reactions, Alerts Combined list of allergies from Department of Defense and Veterans Affairs facilities. It does not include entries that were removed or entered in error. Substance Category Reaction Severity Reaction type Status Date Reported Comments Source CHANTIX Propensity to adverse reactions to drug (finding) Anxiety active 0 [facility] Immunizations Combined list of available immunizations from the Department of Defense and Veterans Affairs facilities. Immunization Series Date Given Administered By Site Reaction Lot Number CVX Code Drug Supervisor Computer Operations Status Comments Source INFLUENZA, HIGH-DOSE, QUADRIVALENT 2022 PELON ESPINOSA LEFT DELTO ID [id number] 197 complet ed [facility] INFLUENZA VACCINE, QUADRIVALENT, ADJUVANTED 2021 205 complet ed [facility] ZOSTER RECOMBINANT 2 2021 187 complet ed [facility] COVID-19 (MODERNA), MRNA, LNP-S, PF, 100 MCG OR 50 MCG DOSE 3 2020 207 complet ed MOD; [id number]; 2 [facility] INFLUENZA VACCINE, QUADRIVALENT, ADJUVANTED 2020 205 complet ed [facility] PNEUMOCOCCAL POLYSACCHARID E PPV23 2020 33 complet ed [facility] TDAP 2020 115 complet ed [facility] ZOSTER RECOMBINANT 1 2020 187 complet ed [facility] COVID-19 (MODERNA), MRNA, LNP-S, PF, 100 MCG/0.5 ML DOSE 2 2020 207 complet ed MOD; [id number]; 1 [facility] COVID-19 (MODERNA), MRNA, LNP-S, PF, 100 MCG/0.5 ML DOSE 1 2020 207 complet ed MOD; [id number]; 1 [facility] INFLUENZA, UNSPECIFIED FORMULATION 2019 88 complet ed [facility] PNEUMOCOCCAL CONJUGATE PCV 13 2014 133 complet ed [facility] ZOSTER (SHINGLES) (HISTORICAL) 2014 121 complet ed Proximal Left Arm [facility] DTAP, UNSPECIFIED FORMULATION 2010 107 complet ed Site: Left Deltoid [facility] PNEUMOCOCCAL, UNSPECIFIED FORMULATION 2005 KEITH CESAR 109 complet ed [facility] Results Combined list of recent chemistry, hematology and other laboratory results from Department of Defense and Veterans Affairs, ranging from 15 months to all on record, depending upon the facility. Order Name Results Value Reference Range Date Interpretation Specimen Comments Source FERRITIN FERRITIN [MASS/VOLUM E] IN SERUM OR PLASMA 144 ng/mL 20 - 300 11/02 Specimen Type: SERUM No comment entered. Ordering Provider: RADHA RAMON Report Released Date/Time: Nov 01, 2023 12:47 PM Reporting Lab: [facility] [address] [facility] [address] Performing Lab[facility] [facility] [address] [facility] [address] [facility] IRON & TIBC PANEL IRON BINDING CAPACITY [MASS/VOLUM E] IN SERUM OR PLASMA 268 ug/dL 204 - 475 11/02 Specimen Type: SERUM No comment entered. Ordering Provider: RADHA RAMON Report Released Date/Time: Nov 01, 2023 12:47 PM Reporting Lab: [facility] [facility] [address] [facility] [address] Performing Lab: [facility] [place] [facility] [address] [facility] [address] [facility] IRON & TIBC PANEL IRON [MASS/VOLUM E] IN SERUM OR PLASMA 195 ug/dL 40 - 160 11/02 H Specimen Type: SERUM No comment entered. Ordering Provider: RADHA RAMON Report Released Date/Time: Nov 01, 2023 12:47 PM Reporting Lab: [facility] [place] [facility] [address] [facility] [address] Performing Lab: [facility] [place] [facility] [address] [facility] [address] [facility] IRON & TIBC PANEL IRON/IRON BINDING CAPACITY.TO KEVIN [MASS RATIO] IN SERUM OR PLASMA 72.8 20.0 - 50.0 11/02 H Specimen Type: SERUM No comment entered. Ordering Provider: RADHA RAMON Report Released Date/Time: Nov 01, 2023 12:47 PM Reporting Lab: [facility] [place] [facility] [address] [facility] [address] Performing Lab: [facility] [place] [facility] [address] [facility] [address] [facility] [facility] IRON & TIBC PANEL TRANSFERRIN [MASS/VOLUM E] IN SERUM OR PLASMA 203 mg/dL 200 - 360 11/02 Specimen Type: SERUM No comment entered. Ordering Provider: RADHA RAMON Report Released Date/Time: Nov 01, 2023 12:47 PM Reporting Lab: [facility] [place] [facility] [address] [facility] [address] Performing Lab: [facility] [place] [facility] [address] [facility] [address] [facility] [place] [facility] LIVER FUNCTION PROTEIN [MASS/VOLUM E] IN SERUM OR PLASMA 6.4 g/dL 6.0 - 8.3 11/02 Specimen Type: SERUM No comment entered. Ordering Provider: RADHA RAMON Report Released Date/Time: Nov 01, 2023 12:47 PM Reporting Lab: [facility] [place] [facility] [address] [facility] [address] Performing Lab: [facility] [place] [facility] [address] [facility] [address] [facility] [place] [facility] LIVER FUNCTION ALBUMIN [MASS/VOLUM E] IN SERUM OR PLASMA 4.1 g/dL 3.5 - 5.0 11/02 Specimen Type: SERUM No comment entered. Ordering Provider: RADHA RAMON Report Released Date/Time: Nov 01, 2023 12:47 PM Reporting Lab: [facility] [place] [facility] [address] [facility] [address] Performing Lab: [facility] [place] [facility] [address] [facility] [address] [facility] [place] [facility] LIVER FUNCTION ALKALINE PHOSPHATASE [ENZYMATIC ACTIVITY/VO LUME] IN SERUM OR PLASMA 75 U/L 40 - 150 11/02 Specimen Type: SERUM No comment entered. Ordering Provider: RADHA RAMON Report Released Date/Time: Nov 01, 2023 12:47 PM Reporting Lab: [facility] [place] [facility] [address] [facility] [address] Performing Lab: [facility] [place] [facility] [address] [facility] [address] [facility] LIVER FUNCTION ASPARTATE AMINOTRANSF ERASE [ENZYMATIC ACTIVITY/VO LUME] IN SERUM OR PLASMA 22 U/L 5 - 34 11/02 Specimen Type: SERUM No comment entered. Ordering Provider: RADHA RAMON Report Released Date/Time: Nov 01, 2023 12:47 PM Reporting Lab: [facility] [place] [facility] [address] [facility] [address] Performing Lab: [facility] [place] [facility] [address] [facility] [address] [facility] [place] [facility] LIVER FUNCTION ALANINE AMINOTRANSF ERASE [ENZYMATIC ACTIVITY/VO LUME] IN SERUM OR PLASMA 35 U/L 11/02 Specimen Type: SERUM No comment entered. Ordering Provider: RADHA RAMON Report Released Date/Time: Nov 01, 2023 12:47 PM Reporting Lab: [facility] [place] [facility] [address] [facility] [address] Performing Lab: [facility] [place] [facility] [address] [facility] [address] [facility] LIVER FUNCTION BILIRUBIN.T OTAL [MASS/VOLUM E] IN SERUM OR PLASMA 0.6 mg/dL 0.2 - 1.2 11/02 Specimen Type: SERUM No comment entered. Ordering Provider: RADHA RAMON Report Released Date/Time: Nov 01, 2023 12:47 PM Reporting Lab: [facility] [place] [facility] [address] [facility] [address] Performing Lab: [facility] [place] [facility] [address] [facility] [address] [facility] CBC LEUKOCYTES [#/VOLUME] IN BLOOD BY AUTOMATED COUNT 7.31 10*3/u L 4.50 - 11.00 11/02 Specimen Type: BLOOD No comment entered. Ordering Provider: FURCOLO,TIN A Report Released Date/Time: Nov 01, 2023 12:47 PM Reporting Lab: [facility] [place] [facility] [address] [facility] [address] Performing Lab: [facility] [address] [facility] [address] [facility] CBC ERYTHROCYTE S [#/VOLUME] IN BLOOD BY AUTOMATED COUNT 5.14 10*6/u L 4.23 - 5.66 11/02 Specimen Type: BLOOD No comment entered. Ordering Provider: RADHA RAMON Report Released Date/Time: Nov 01, 2023 12:47 PM Reporting Lab: [facility] [place] [facility] [address] [facility] [address] Performing Lab: [facility] [place] [facility] [address] [facility] [address] [facility] CBC HEMOGLOBIN [MASS/VOLUM E] IN BLOOD 16.5 g/dL 12.8 - 17 11/02 Specimen Type: BLOOD No comment entered. Ordering Provider: RADHA RAMON Report Released Date/Time: Nov 01, 2023 12:47 PM Reporting Lab: [facility] [place] [facility] [address] [facility] [address] Performing Lab: [facility] [place] [facility] [address] [facility] [address] [facility] CBC HEMATOCRIT [VOLUME FRACTION] OF BLOOD BY AUTOMATED COUNT 49.0 39.2 - 50.4 11/02 Specimen Type: BLOOD No comment entered. Ordering Provider: RADHA RAMON Report Released Date/Time: Nov 01, 2023 12:47 PM Reporting Lab: [facility] [place] [facility] [address] [facility] [address] Performing Lab: [facility] [place] [facility] [address] [facility] [address] [facility] CBC MCV [ENTITIC VOLUME] BY AUTOMATED COUNT 95.3 fL 82 - 99 11/02 Specimen Type: BLOOD No comment entered. Ordering Provider: RADHA RAMON Report Released Date/Time: Nov 01, 2023 12:47 PM Reporting Lab: [facility] [address] [facility] [address] Performing Lab: [facility] [address] [facility] [address] [facility] CBC MCHC [MASS/VOLUM E] BY AUTOMATED COUNT 33.7 g/dL 30.8 - 35.1 11/02 Specimen Type: BLOOD No comment entered. Ordering Provider: RADHA RAMON Report Released Date/Time: Nov 01, 2023 12:47 PM Reporting Lab: [facility] [place] [facility] [address] [facility] [address] Performing Lab: [facility] [place] [facility] [address] [facility] [address] [facility] CBC PLATELETS [#/VOLUME] IN BLOOD BY AUTOMATED COUNT 182 10*3/u L 140 - 360 11/02 Specimen Type: BLOOD No comment entered. Ordering Provider: RADHA RAMON Report Released Date/Time: Nov 01, 2023 12:47 PM Reporting Lab: [facility] [place] [facility] [address] [facility] [address] Performing Lab: [facility] [place] [facility] [address] [facility] [address] [facility] CBC ERYTHROCYTE DISTRIBUTIO N WIDTH [RATIO] BY AUTOMATED COUNT 12.3 12.0 - 16.0 11/02 Specimen Type: BLOOD No comment entered. Ordering Provider: RADHA RAMON Report Released Date/Time: Nov 01, 2023 12:47 PM Reporting Lab: [facility] [place] [facility] [address] [facility] [address] Performing Lab: [facility] [place] [facility] [address] [facility] [address] [facility] CBC MCH [ENTITIC MASS] BY AUTOMATED COUNT 32.1 pg 26.2 - 32.6 11/02 Specimen Type: BLOOD No comment entered. Ordering Provider: RADHA RAMON Report Released Date/Time: Nov 01, 2023 12:47 PM Reporting Lab: [facility] [place] [facility] [address] [facility] [address] Performing Lab: [facility] [address] [facility] [address] [facility] FERRITIN FERRITIN [MASS/VOLUM E] IN SERUM OR PLASMA 205 ng/mL 20 - 300 01/04 Specimen Type: SERUM No comment entered. Ordering Provider: MAGUE CRUZ Report Released Date/Time: July 05, 2022 10:31 AM Reporting Lab: [facility] [place] [facility] [address] [facility] [address] Performing Lab: [facility] [place] [facility] [address] [facility] [address] [facility] LIPID PANEL FASTING CHOLESTEROL [MASS/VOLUM E] IN SERUM OR PLASMA 169 mg/dL 01/04 Specimen Type: SERUM No comment entered. Ordering Provider: MAGUE CRUZ Report Released Date/Time: July 05, 2022 10:31 AM Reporting Lab: [facility] [place] [facility] [address] [facility] [address] Performing Lab: [facility] [place] [facility] [address] [facility] [address] [facility] LIPID PANEL FASTING TRIGLYCERID E [MASS/VOLUM E] IN SERUM OR PLASMA 92 mg/dL 0 - 150 01/04 Specimen Type: SERUM No comment entered. Ordering Provider: MAGUE CRUZ Report Released Date/Time: July 05, 2022 10:31 AM Reporting Lab: [facility] [place] [facility] [address] [facility] [address] Performing Lab: [facility] [place] [facility] [address] [facility] [address] [facility] LIPID PANEL FASTING CHOLESTEROL IN LDL [MASS/VOLUM E] IN SERUM OR PLASMA BY CALCULATION 105 mg/dL 0 - 129 01/04 Specimen Type: SERUM No comment entered. Ordering Provider: MAGUE CRUZ Report Released Date/Time: July 05, 2022 10:31 AM Reporting Lab: [facility] [place] [facility] [address] [facility] [address] Performing Lab: [facility] [place] [facility] [address] [facility] [address] [facility] LIPID PANEL FASTING CHOLESTEROL .TOTAL/CHOL ESTEROL IN HDL [MASS RATIO] IN SERUM OR PLASMA 3.7 01/04 Specimen Type: SERUM No comment entered. Ordering Provider: MAGUE CRUZ Report Released Date/Time: July 05, 2022 10:31 AM Reporting Lab: [facility] [place] [facility] [address] [facility] [address] Performing Lab: [facility] [place] [facility] [address] [facility] [address] [facility] LIPID PANEL FASTING CHOLESTEROL IN HDL [MASS/VOLUM E] IN SERUM OR PLASMA 46 mg/dL 40 - 60 01/04 Specimen Type: SERUM No comment entered. Ordering Provider: MAGUE CRUZ Report Released Date/Time: July 05, 2022 10:31 AM Reporting Lab: [facility] [place] [facility] [address] [facility] [address] Performing Lab: [facility] [place] [facility] [address] [facility] [address] [facility] LIVER FUNCTION PROTEIN [MASS/VOLUM E] IN SERUM OR PLASMA 6.4 g/dL 6.0 - 8.3 01/04 Specimen Type: SERUM No comment entered. Ordering Provider: MAGUE CRUZ Report Released Date/Time: July 05, 2022 10:31 AM Reporting Lab: [facility] [place] [facility] [address] [facility] [address] Performing Lab: [facility] [place] [facility] [address] [facility] [address] [facility] LIVER FUNCTION ALBUMIN [MASS/VOLUM E] IN SERUM OR PLASMA 4.0 g/dL 3.5 - 5.0 01/04 Specimen Type: SERUM No comment entered. Ordering Provider: MAGUE CRUZ Report Released Date/Time: July 05, 2022 10:31 AM Reporting Lab: [facility] [place] [facility] [address] [facility] [address] Performing Lab: [facility] [place] [facility] [address] [facility] [address] [facility] LIVER FUNCTION ALKALINE PHOSPHATASE [ENZYMATIC ACTIVITY/VO LUME] IN SERUM OR PLASMA 71 U/L 40 - 150 01/04 Specimen Type: SERUM No comment entered. Ordering Provider: MAGUE CRUZ Report Released Date/Time: July 05, 2022 10:31 AM Reporting Lab: [facility] [place] [facility] [address] [facility] [id number] Performing Lab: [facility] [place] [facility] [address] [facility] [address] [facility] [place] [facility] LIVER FUNCTION ASPARTATE AMINOTRANSF ERASE [ENZYMATIC ACTIVITY/VO LUME] IN SERUM OR PLASMA 22 U/L 5 - 34 01/04 Specimen Type: SERUM No comment entered. Ordering Provider: MAGUE CRUZ Report Released Date/Time: July 05, 2022 10:31 AM Reporting Lab: [facility] [place] [facility] [address] [facility] [address] Performing Lab: [facility] [place] [facility] [address] [facility] [address] [facility] [place] [facility] LIVER FUNCTION ALANINE AMINOTRANSF ERASE [ENZYMATIC ACTIVITY/VO LUME] IN SERUM OR PLASMA 37 U/L 01/04 Specimen Type: SERUM No comment entered. Ordering Provider: MAGUE CRUZ Report Released Date/Time: July 05, 2022 10:31 AM Reporting Lab: [facility] [place] [facility] [address] [facility] [address] Performing Lab: [facility] [facility] [address] [facility] [address] [facility] [place] [facility] LIVER FUNCTION BILIRUBIN.T OTAL [MASS/VOLUM E] IN SERUM OR PLASMA 0.6 mg/dL 0.2 - 1.2 01/04 Specimen Type: SERUM No comment entered. Ordering Provider: MAGUE CRUZ Report Released Date/Time: July 05, 2022 10:31 AM Reporting Lab: [facility] [place] [facility] [address] [facility] [address] Performing Lab: [facility] [place] [facility] [address] [facility] [address] [place] [facility] [place] [facility] BASIC METABOLIC PANEL (fasting) UREA NITROGEN [MASS/VOLUM E] IN SERUM OR PLASMA 14 mg/dL 7 - 25 01/04 Specimen Type: SERUM No comment entered. Ordering Provider: MAGUE CRUZ Report Released Date/Time: July 05, 2022 10:31 AM Reporting Lab: [facility] [address] [facility] [address] Performing Lab: [facility] [address] [address] [facility] BASIC METABOLIC PANEL (fasting) GLUCOSE [MASS/VOLUM E] IN SERUM OR PLASMA 108 mg/dL 65 - 100 01/04 H Specimen Type: SERUM No comment entered. Ordering Provider: MAGUE CRUZ Report Released Date/Time: July 05, 2022 10:31 AM Reporting Lab: [facility] [address] [facility] [address] Performing Lab: [facility] [address] [facility] [address] [facility] BASIC METABOLIC PANEL (fasting) SODIUM [MOLES/VOLU ME] IN SERUM OR PLASMA 142 mmol/L 135 - 145 01/04 Specimen Type: SERUM No comment entered. Ordering Provider: MAGUE CRUZ Report Released Date/Time: July 05, 2022 10:31 AM Reporting Lab: [facility] [address] [facility] [address] Performing Lab: [facility] [address] [facility] [address] [facility] BASIC METABOLIC PANEL (fasting) POTASSIUM [MOLES/VOLU ME] IN SERUM OR PLASMA 4.3 mmol/L 3.5 - 5.0 01/04 Specimen Type: SERUM No comment entered. Ordering Provider: MAGUE CRUZ Report Released Date/Time: July 05, 2022 10:31 AM Reporting Lab: [facility] [address] [facility] [address] Performing Lab: [facility] [address] [facility] [address] [facility] BASIC METABOLIC PANEL (fasting) CHLORIDE [MOLES/VOLU ME] IN SERUM OR PLASMA 103 mmol/L 100 - 110 01/04 Specimen Type: SERUM No comment entered. Ordering Provider: MAGUE CRUZ Report Released Date/Time: July 05, 2022 10:31 AM Reporting Lab: [facility] [address] [facility] [address] Performing Lab: [facility] [address] [facility] [address] [facility] BASIC METABOLIC PANEL (fasting) CARBON DIOXIDE, TOTAL [MOLES/VOLU ME] IN SERUM OR PLASMA 31 meq/L 20 - 30 01/04 H Specimen Type: SERUM No comment entered. Ordering Provider: MAGUE CRUZ Report Released Date/Time: July 05, 2022 10:31 AM Reporting Lab: [facility] [facility] [address] [facility] [address] Performing Lab: [facility] [facility] [address] [facility] [address] [facility] BASIC METABOLIC PANEL (fasting) CREATININE [MASS/VOLUM E] IN SERUM OR PLASMA 0.95 mg/dL 0.50 - 1.40 01/04 Specimen Type: SERUM No comment entered. Ordering Provider: MAGUE CRUZ Report Released Date/Time: July 05, 2022 10:31 AM Reporting Lab: [facility] [address] [facility] [address] Performing Lab: [facility] [place] [facility] [address] [facility] [address] [facility] BASIC METABOLIC PANEL (fasting) GLOMERULAR FILTRATION RATE/1.73 SQ M.PREDICTED [VOLUME RATE/AREA] IN SERUM, PLASMA OR BLOOD BY CREATININE- BASED FORMULA (CKD-EPI 2020) 84 mL/min 60 01/04 Specimen Type: SERUM No comment entered. Ordering Provider: MAGUE CRUZ Report Released Date/Time: July 05, 2022 10:31 AM Reporting Lab: [facility] [facility] [address] [facility] [address] Performing Lab: [facility] [facility] [address] [facility] [address] [facility] CBC AND DIFF (AUTO) LEUKOCYTES [#/VOLUME] IN BLOOD BY AUTOMATED COUNT 6.59 10*3/u L 4.50 - 11.00 01/04 Specimen Type: BLOOD No comment entered. Ordering Provider: MAGUE CRUZ Report Released Date/Time: July 05, 2022 10:31 AM Reporting Lab: [facility] [facility] [address] [facility] [address] Performing Lab: [facility] [facility] [address] [facility] [address] [facility] CBC AND DIFF (AUTO) ERYTHROCYTE S [#/VOLUME] IN BLOOD BY AUTOMATED COUNT 5.31 10*6/u L 4.23 - 5.66 01/04 Specimen Type: BLOOD No comment entered. Ordering Provider: MAGUE CRUZ Report Released Date/Time: July 05, 2022 10:31 AM Reporting Lab: [facility] [address] [facility] [address] Performing Lab: [facility] [address] [address] [facility] CBC AND DIFF (AUTO) HEMOGLOBIN [MASS/VOLUM E] IN BLOOD 16.6 g/dL 12.8 - 17 01/04 Specimen Type: BLOOD No comment entered. Ordering Provider: MAGUE CRUZ Report Released Date/Time: July 05, 2022 10:31 AM Reporting Lab: [facility] [address] [facility] [address] Performing Lab: [facility] [address] [facility] [address] [facility] CBC AND DIFF (AUTO) HEMATOCRIT [VOLUME FRACTION] OF BLOOD BY AUTOMATED COUNT 50.5 39.2 - 50.4 01/04 H Specimen Type: BLOOD No comment entered. Ordering Provider: MAGUE CRUZ Report Released Date/Time: July 05, 2022 10:31 AM Reporting Lab: [facility] [address] [facility] [address] Performing Lab: [facility] [address] [facility] [address] [facility] CBC AND DIFF (AUTO) MCV [ENTITIC VOLUME] BY AUTOMATED COUNT 95.1 fL 82 - 99 01/04 Specimen Type: BLOOD No comment entered. Ordering Provider: MAGUE CRUZ Report Released Date/Time: July 05, 2022 10:31 AM Reporting Lab: [facility] [address] [facility] [address] Performing Lab: [facility] [address] [facility] [address] [facility] CBC AND DIFF (AUTO) MCHC [MASS/VOLUM E] BY AUTOMATED COUNT 32.9 g/dL 30.8 - 35.1 01/04 Specimen Type: BLOOD No comment entered. Ordering Provider: MAGUE CRUZ Report Released Date/Time: July 05, 2022 10:31 AM Reporting Lab: [facility] [address] [facility] [address] Performing Lab: [facility] [address] [facility] [address] [facility] CBC AND DIFF (AUTO) PLATELETS [#/VOLUME] IN BLOOD BY AUTOMATED COUNT 173 10*3/u L 140 - 360 01/04 Specimen Type: BLOOD No comment entered. Ordering Provider: MAGUE CRUZ Report Released Date/Time: July 05, 2022 10:31 AM Reporting Lab: [facility] [address] [facility] [address] Performing Lab: [facility] [address] [facility] [address] [facility] CBC AND DIFF (AUTO) ERYTHROCYTE DISTRIBUTIO N WIDTH [RATIO] BY AUTOMATED COUNT 12.3 12.0 - 16.0 01/04 Specimen Type: BLOOD No comment entered. Ordering Provider: MAGUE CRUZ Report Released Date/Time: July 05, 2022 10:31 AM Reporting Lab: [facility] [address] [facility] [address] Performing Lab: [facility] [facility] [address] [facility] [address] [facility] CBC AND DIFF (AUTO) MONOCYTES [#/VOLUME] IN BLOOD BY AUTOMATED COUNT 0.55 10*3/u L 0.30 - 1.10 01/04 Specimen Type: BLOOD No comment entered. Ordering Provider: MAGUE CRUZ Report Released Date/Time: July 05, 2022 10:31 AM Reporting Lab: [facility] [facility] [address] [facility] [address] Performing Lab: [facility] [facility] [address] [facility] [address] [facility] CBC AND DIFF (AUTO) MCH [ENTITIC MASS] BY AUTOMATED COUNT 31.3 pg 26.2 - 32.6 01/04 Specimen Type: BLOOD No comment entered. Ordering Provider: MAGUE CRUZ Report Released Date/Time: July 05, 2022 10:31 AM Reporting Lab: [facility] [address] [facility] [address] Performing Lab: [facility] [address] [facility] [address] [facility] CBC AND DIFF (AUTO) NEUTROPHILS /100 LEUKOCYTES IN BLOOD BY AUTOMATED COUNT 63.8 43.7 - 75.8 01/04 Specimen Type: BLOOD No comment entered. Ordering Provider: MAGUE CRUZ Report Released Date/Time: July 05, 2022 10:31 AM Reporting Lab: [facility] [address] [facility] [address] Performing Lab: [facility] [address] [facility] [address] [facility] CBC AND DIFF (AUTO) LYMPHOCYTES /100 LEUKOCYTES IN BLOOD BY AUTOMATED COUNT 25.6 14.0 - 42.3 01/04 Specimen Type: BLOOD No comment entered. Ordering Provider: MAGUE CRUZ Report Released Date/Time: July 05, 2022 10:31 AM Reporting Lab: [facility] [address] [facility] [address] Performing Lab: [facility] [address] [facility] [address] [facility] CBC AND DIFF (AUTO) MONOCYTES/1 00 LEUKOCYTES IN BLOOD BY AUTOMATED COUNT 8.3 5.1 - 13.7 01/04 Specimen Type: BLOOD No comment entered. Ordering Provider: MAGUE CRUZ Report Released Date/Time: July 05, 2022 10:31 AM Reporting Lab: [facility] [address] [facility] [address] Performing Lab: [facility] [address] [facility] [address] [facility] CBC AND DIFF (AUTO) EOSINOPHILS /100 LEUKOCYTES IN BLOOD BY AUTOMATED COUNT 1.4 0.4 - 6.8 11/21 /2023 Specimen Type: BLOOD No comment entered. Ordering Provider: MAGUE CRUZ Report Released Date/Time: July 05, 2022 10:31 AM Reporting Lab: [facility] [address] [facility] [address] Performing Lab: [facility] [place] [facility] [address] [facility] [address] [facility] CBC AND DIFF (AUTO) BASOPHILS/1 00 LEUKOCYTES IN BLOOD BY AUTOMATED COUNT 0.6 0.1 - 2.0 01/04 Specimen Type: BLOOD No comment entered. Ordering Provider: MAGUE CRUZ Report Released Date/Time: July 05, 2022 10:31 AM Reporting Lab: [facility] [place] [facility] [address] [facility] [address] Performing Lab: [facility] [place] [facility] [address] [facility] [address] [facility] CBC AND DIFF (AUTO) NEUTROPHILS [#/VOLUME] IN BLOOD BY AUTOMATED COUNT 4.20 10*3/u L 2.20 - 7.60 01/04 Specimen Type: BLOOD No comment entered. Ordering Provider: MAGUE CRUZ Report Released Date/Time: July 05, 2022 10:31 AM Reporting Lab: [facility] [place] [facility] [address] [facility] [address] Performing Lab: [facility] [address] [facility] [address] [facility] CBC AND DIFF (AUTO) LYMPHOCYTES [#/VOLUME] IN BLOOD BY AUTOMATED COUNT 1.69 10*3/u L 1.00 - 3.20 01/04 Specimen Type: BLOOD No comment entered. Ordering Provider: MAGUE CRUZ Report Released Date/Time: July 05, 2022 10:31 AM Reporting Lab: [facility] [place] [facility] [address] [facility] [address] Performing Lab: [facility] [address] [facility] [address] [facility] CBC AND DIFF (AUTO) EOSINOPHILS [#/VOLUME] IN BLOOD BY AUTOMATED COUNT 0.09 10*3/u L 0.03 - 0.44 01/04 Specimen Type: BLOOD No comment entered. Ordering Provider: MAGUE CRUZ Report Released Date/Time: July 05, 2022 10:31 AM Reporting Lab: [facility] [address] [facility] [address] Performing Lab: [facility] [place] [facility] [address] [facility] [address] [facility] CBC AND DIFF (AUTO) BASOPHILS [#/VOLUME] IN BLOOD BY AUTOMATED COUNT 0.04 10*3/u L 0.01 - 0.13 01/04 Specimen Type: BLOOD No comment entered. Ordering Provider: MAGUE CRUZ Report Released Date/Time: July 05, 2022 10:31 AM Reporting Lab: [facility] [address] [facility] [address] Performing Lab: [facility] [place] [facility] [address] [facility] [address] [facility] CBC AND DIFF (AUTO) IMMATURE GRANULOCYTE S/100 LEUKOCYTES IN BLOOD BY AUTOMATED COUNT 0.3 0.0 - 0.7 01/04 Specimen Type: BLOOD No comment entered. Ordering Provider: MAGUE CRUZ Report Released Date/Time: July 05, 2022 10:31 AM Reporting Lab: [facility] [address] [facility] [address] Performing Lab: [facility] [address] [facility] [address] [facility] CBC AND DIFF (AUTO) IMMATURE GRANULOCYTE S [#/VOLUME] IN BLOOD 0.02 10*3/u L 0.00 - 0.06 01/04 Specimen Type: BLOOD No comment entered. Ordering Provider: MAGUE CRUZ Report Released Date/Time: July 05, 2022 10:31 AM Reporting Lab: [facility] [place] [facility] [address] [facility] [address] Performing Lab: [facility] [place] [facility] [address] [facility] [address] [facility] LIPID PANEL FASTING CHOLESTEROL [MASS/VOLUM E] IN SERUM OR PLASMA 167 mg/dL 7 - 199 06/30 Specimen Type: SERUM No comment entered. Ordering Provider: MAGUE CRUZ Report Released Date/Time: May 07, 2022 09:34 AM Reporting Lab: [facility] [facility] [address] [facility] [address] Performing Lab: [facility] [place] [facility] [address] [facility] [address] [facility] LIPID PANEL FASTING TRIGLYCERID E [MASS/VOLUM E] IN SERUM OR PLASMA 85 mg/dL 0 - 150 06/30 Specimen Type: SERUM No comment entered. Ordering Provider: MAGUE CRUZ Report Released Date/Time: May 07, 2022 09:34 AM Reporting Lab: [facility] [place] [facility] [address] [facility] [address] Performing Lab: [facility] [place] [facility] [address] [facility] [address] [facility] LIPID PANEL FASTING CHOLESTEROL IN LDL [MASS/VOLUM E] IN SERUM OR PLASMA BY CALCULATION 108 mg/dL 0 - 129 06/30 Specimen Type: SERUM No comment entered. Ordering Provider: MAGUE CRUZ Report Released Date/Time: May 07, 2022 09:34 AM Reporting Lab: [facility] [facility] [address] [facility] [address] Performing Lab: [facility] [place] [facility] [address] [facility] [address] [facility] LIPID PANEL FASTING CHOLESTEROL .TOTAL/CHOL ESTEROL IN HDL [MASS RATIO] IN SERUM OR PLASMA 4.0 06/30 Specimen Type: SERUM No comment entered. Ordering Provider: MAGUE CRUZ Report Released Date/Time: May 07, 2022 09:34 AM Reporting Lab: [facility] [address] [facility] [address] Performing Lab: [facility] [address] [facility] [address] [facility] LIPID PANEL FASTING CHOLESTEROL IN HDL [MASS/VOLUM E] IN SERUM OR PLASMA 42 mg/dL 40 - 60 06/30 Specimen Type: SERUM No comment entered. Ordering Provider: MAGUE CRUZ Report Released Date/Time: May 07, 2022 09:34 AM Reporting Lab: [facility] [address] [facility] [address] Performing Lab: [facility] [facility] [address] [facility] [address] [facility] Vital Signs Combined list of inpatient and outpatient Vital Signs from Department of Defense and Veterans Affairs, ranging from 12 months to all on record, depending upon the facility. Vital Sign Value Date Comments Source SYSTOLIC BLOOD PRESSURE 154 11/11/19 24 09:02:37 [facility] DIASTOLIC BLOOD PRESSURE 90 024 09:02:37 [facility] PULSE OXIMETRY 90 11/11/2023 09:02:37 [facility] WEIGHT 265 11/11/2023 09:02:37 [facility] BMI 37kg/m2 11/11/2023 09:02:37 [facility] PAIN 0 11/11/2023 09:02:37 [facility] TEMPERATURE 98.7 11/11/2023 09:02:37 [facility] PULSE 107 11/11/2023 09:02:37 [facility] RESPIRATION 16 11/11/2023 09:02:37 [facility] SYSTOLIC BLOOD PRESSURE 142 05/12/19 24 11:17:47 [facility] DIASTOLIC BLOOD PRESSURE 86 05/11/ 024 11:17:47 [facility] PULSE OXIMETRY 94 05/12/2023 11:17:47 [facility] WEIGHT 250 05/12/2023 11:17:47 [facility] BMI 35kg/m2 05/12/2023 11:17:47 [facility] PAIN 0 05/12/2023 11:17:47 [facility] TEMPERATURE 97.9 05/12/2023 11:17:47 [facility] PULSE 90 05/12/2023 11[facility]17:47 [facility] RESPIRATION 16 05/12/2023 11:17:47 [facility] Encounters Combined list of: 1) Encounters from Department of Veterans Affairs facilities going back up to thelast 18 months. 2) Encounters from the Department of Defense facilities going back up to 280 months. Location Location Details Encounter Type Encounter Number Reason For Visit Attending Provider ADM Date DC Date Status Disposition Source [facility] Out[facility]counter [id number] 08/27 [facility]counter [id number] 08/27 [facility] Out[facility]counter [id number] 01/05 [facility] OFFICE O/P EST MOD 30-39 MIN [id number] Diagnos is: ICD-10- CM J43.2 Centril obular emphyse ma
GORDON CRUZ MMED JAWED 01/12 [facility] [id number] 01/13 [facility] Encounter [id number] 01/14 [facility] Outpatient Encounter [id number] Diagnos is: ICD-10- CM R91.8 Other nonspec ific abnorma l finding of lung field<b r/> KARLA MCKAY YN 01/14 [facility] Out[facility] Encounter [id number] 01/14 [facility] CMPTR OPHTH IMG OPTIC NERVE [id number] Diagnos is: ICD-10- CM H40.013 Open angle with borderl ine finding s, low risk, bilater al
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
CLAUDIA CAMARA 03/01 [facility] FIT SPECTACLES MULTIFOCAL [id number] Diagnos is: ICD-10- CM Z46.0 Encount er for fit/adj st of spectac les and contact lenses< br/> CLAUDIA CAAMRA 03/01 [facility] Out[facility] Encounter [id number] 03/17 [facility]counter [id number] 03/22 [facility] Out[facility] Encounter [id number] 03/23 [facility] Out[facility] Encounter [id number] 04/06 [facility] Out[facility] Encounter [id number] 05/11 [facility] OFFICE O/P EST MOD 30 MIN [id number] Diagnos is: ICD-10- CM J43.2 Centril obular emphyse ma
GORDON CRUZ MMED JAWED 05/11 [facility] QNHP OL DIG ASSMT&MGMT 01-03 [id number] Diagnos is: ICD-10- CM R91.1 Solitar y pulmona ry nodule< br/> SIGIFREDO GOMEZCA L 05/11 [facility] Out[facility] Encounter [id number] 07/25 [facility] Out[facility]counter [id number] 07/26 [facility] Out[facility]counter [id number] 08/14 [facility] Out[facility] Encounter [id number] 08/29 [facility] Out[facility]counter [id number] 09/04 [facility] Out[facility]counter [id number] 09/28 [facility]counter [id number] 10/27 [facility]counter [id number] 10/30 [facility]counter [id number] 10/31 [facility]counter [id number] 11/06 [facility] OFFICE O/P EST HI 40 MIN [id number] 1. Diagnos is: ICD-10- CM J43.2 Centril obular emphyse ma
FURCOLO,TI NA 11/10 [facility] En[facility] [id number] 11/10 [facility] [id number] 1.11/15 [facility] [id number] [facility] En[facility] [id number] 1.11/24 [facility] OFFICE O/P NEW MOD 45 MIN [id number] Diagnos is: ICD-10- CM L57.0 Actinic keratos is
ALECIA ESTEBAN 11/28 [facility] En[facility] [id number] 1.12/06 [facility] En[facility] [id number] 1.01/03 [facility] [id number] 01/18 [facility] [id number] 02/12 [facility] Social History Combined list of available smoking, tobacco, and other social history from [facility] and [facility] facilities. Social History Type Response Date Comment Source Tobacco smoking status INIS VA-TOBACCO USER EVERY DAY 01/12/2023 [facility] History of tobacco use VA-TOBACCO DOESNT USE WI 30 MIN WAKEUP 01/12/2023 [facility] History of tobacco use VA-TOBACCO USER EVERY DAY 10/23/2021 [facility] History of tobacco use VA-TOBACCO DOESNT USE WI 30 MIN WAKEUP 10/29/2020 [facility] History [facility] tobacco use VA-TOBACCO FORMER USER 10/10/2019 [facility] History of tobacco use VA-TOBACCO USE MED NO [facility]26[facility] tobacco use CURRENT SMOKER 08/04/2017 [facility] tobacco use QUIT TOBACCO USE IN PAST YEAR 01/31/2017 31 days [facility] History [facility] tobacco use CURRENT SMOKER 01/26/2016 [facility] History of tobacco use QUIT TOBACCO USE IN PAST YEAR 02/20/2015 [facility] History of tobacco use CURRENT SMOKER 06/17/2014 Reports being an off and on smoker -cigarette s [facility] [facility] History of tobacco use CURRENT SMOKER 09/14/2011 less than a pack a day [facility] History of tobacco use CURRENT SMOKER 03/09/2010 1 ppd [employer] History of tobacco use V1-PT DECLINES TOBACCO CESSATION MEDS 09/29/2009 [employer] History of tobacco use CURRENT SMOKER 01/29/2009 1 ppd [facility] History of tobacco use CURRENT SMOKER 03/17/2005 [employer] [facility] [facility] Plan of Care List of future care activities from [facility] Affairs facilities. Additional future care activities may be listed in the Assessment and Plan section. Date/Time Care Activity Care Activity Detail Facili ty 02/21/2024 AMBULATORY - MEDICINE [facility] [place] [facility] 02/27/2024 AMBULATORY - MEDICINE [facility] [place] [facility] 03/20/2024 AMBULATORY - MEDICINE [facility]/10[facility]24 [facility]BULAT[facility] - NONE [facility] 05/10/2024 AMBULATORY - MEDICINE [facility] [place] [facility] 01/05/2024 Consult Order COMMUNITY CARE-P ULMONARY REHAB Cons Calender Operator's Choice [employer] [facility] Advance Directives List of completed, amended, or rescinded Advance Directives on record at Department of [facility] facilities. An actual copy of the Directive is not included. Date Advance Directive Provider Source 11/11/2023 ADVANCE DIRECTIVE JACOB DEL TORO [place] Macey [facility]L [facility]
--- OUTSIDE RECORDS SUMMARY | 2024-02-13 13:01 | XMS_ITS ---
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 This section includes the names of all active insurance providers for the patient. Insurance Provider Type of Coverage Plan Name Start of Policy Coverage End of Policy Coverage Group Number Member ID Insurance Provider's Telephone Number Policy Ackerman's Name Patient's Relationship to Policy Ackerman MEDICARE (WNR) MEDICARE (M) PART A Jul 15, 2013 PART A [id number] [facility] [phone] BRAD CUENCA JR PATIENT MEDICARE (WNR) MEDICARE (M) PART B Jul 15, 2013 PART B [id number] BRAD CUENCA JR PATIENT Selected Encounter This section includes the information on record at [place] for the Encounter. Date/Time Encounter Type Encounter Description Reason Provider Source Mar 01, 2023 09:15 AM [facility] OPTIC NERVE OPTOMETRY ICD-10-CM H40.013 Open angle with borderline findings, low risk, bilateral PROMISE CAMARA Encounter Template Text not used by [place] Assessments - Encounter Diagnoses This section includes the primary and secondary diagnoses documented for the Encounter. Date/Time Primary/Secondary Diagnosis Diagnosis Name Provider Source Mar 02, 2023 01:11 PM PRIMARY Open angle with borderline findings, low risk, bilateral PROMISE CAMARA [facility] Plan of Treatment: Future Appointments (+ 6 months) and Future Tests (+/- 45 days) The Plan of Treatment section includes future care activities for the patient from all [place] [facility]. This section includes future appointments and future orders which are active, pending or scheduled. Future Appointments This section includes appointments that were scheduled to occur 6 months from the date of the Encounter, up to a maximum of 20 appointments. The data comes from all [place] treatment facilities. Appointment Date/Time Appointment Type Appointme nt Facility Name Apr 06, 2023 09:45 AM [facility] May 12, 2023 09:30 AM [facility] May 12, 2023 11:30 AM [facility] Social History: Smoking Status (Most current) and Tobacco Use (All prior to encounter date) This section includes the most current, and the historical, smoking and tobacco- related health factors from the [place] facility where the Encounter took place. Current Smoking Status This section includes the most current smoking, or tobacco-related health factor, from the [place] facility where the Encounter took place. Date/Time Current Smoking Status Comment [facility] Jan 12, 2023 09:00 AM VA-TOBACCO USER EVERY DAY [facility] Tobacco Use History This section includes a history of the smoking, or tobacco-related health factors, that were collected on or before the date of the Encounter. The data comes from the [place] facility where the Encounter took place. 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 Jan 12, 2023 09:00 AM VA-TOBACCO USE MED NO [facility] [place] [facility] Jan 12, 2023 09:00 AM VA-TOBACCO USER EVERY DAY [facility] [place] [facility] Oct 23, 2021 08:00 AM VA-TOBACCO DOESNT USE WI 30 MIN WAKEUP [facility] [place] [facility] Oct 23, 2021 08:00 AM VA-TOBACCO USE 30 YEARS OR MORE [facility] [place] [facility] Oct 23, 2021 08:00 AM VA-TOBACCO USE ADVICE [facility] [place] [facility] Oct 23, 2021 08:00 AM 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 USE 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 NO [facility] [place] [facility] Oct 23, 2021 08:00 AM VA-TOBACCO USE MED NO [facility] [place] [facility] Oct 23, 2021 08:00 AM VA-TOBACCO USER EVERY DAY [facility] [place] [facility] Oct 29, 2020 10:00 AM VA-TOBACCO DOESNT USE [place] 30 MIN WAKEUP [place] [facility] [facility] Oct 29, 2020 10:00 AM VA-TOBACCO USE 30 YEARS OR MORE [place] [facility] [facility] Oct 29, 2020 10:00 AM VA-TOBACCO USE ADVICE [place] [facility] [facility] [facility] Oct 29, 2020 10:00 AM 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 USE 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 YES [place] [facility] [facility] Oct 29, 2020 10:00 AM VA-TOBACCO USE MED NOTIFY PROVIDER [place] [facility] [facility] [facility] Oct 29, 2020 10:00 AM VA-TOBACCO USER EVERY DAY [place] [facility] [facility] Oct 10, 2019 11:00 AM VA-TOBACCO FORMER USER [facility] [place] [facility] Oct 10, 2019 11:00 AM VA-TOBACCO QUIT < 1 YEAR [facility] [place] [facility] Oct 26, 2018 07:55 AM VA-TOBACCO USE > 15 LESS THAN 30 YEARS [facility] [place] [facility] Oct 26, 2018 07:55 AM VA-TOBACCO USE ADVICE [facility] [place] [facility] Oct 26, 2018 07:55 AM VA-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 USE 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 NO [facility] [place] [facility] Oct 26, 2018 07:55 AM VA-TOBACCO USE MED NO [place] [facility] [facility] Oct 26, 2018 07:55 AM VA-TOBACCO USE [place] 30 MIN [place] WAKEUP [place] [facility] [facility] [facility] Oct 26, 2018 07:55 AM VA-TOBACCO USER EVERY DAY [facility] [place] [facility] Aug 04, 2017 08:53 AM CURRENT SMOKER [facility] [place] [facility] Aug 04, 2017 08:53 AM V1-PT DECLINES REF TO TOBACCO CESS PRGM [facility] [place] [facility] Aug 04, 2017 08:53 AM V1-PT DECLINES TOBACCO CESSATION MEDS [facility] [place] [facility] Aug 04, 2017 08:53 AM V1-PT THINKING ABOUT QUIT TOBACCO USE [facility] [place] [facility] Jan 31, 2017 09:51 AM QUIT TOBACCO USE IN PAST YEAR 31 days [facility] [place] [facility] Jan 26, 2016 08:36 AM CURRENT SMOKER [facility] [place] [facility] Jan 26, 2016 08:36 AM V1-PT DECLINES REF TO TOBACCO CESS PRGM [facility] [place] [facility] Jan 26, 2016 08:36 AM V1-PT DECLINES TOBACCO CESSATION MEDS [facility] [place] [facility] Jan 26, 2016 08:36 AM V1-PT THINKING ABOUT QUIT TOBACCO USE [facility] [place] [facility] Feb 20, 2015 10:25 AM QUIT TOBACCO USE IN PAST YEAR [facility] [place] [facility] June 17, 2014 07:37 AM CURRENT SMOKER Reports being an off and on smoker -cigarettes [facility] [place] [facility] June 17, 2014 07:37 AM V1-PT DECLINES REF TO TOBACCO CESS PRGM [place] [facility] [facility] June 17, 2014 07:37 AM V1-PT DECLINES TOBACCO CESSATION MEDS [facility] [place] [facility] June 17, 2014 07:37 AM V1-PT THINKING ABOUT QUIT TOBACCO USE [facility] [place] [facility] Sep 14, 2011 09:51 AM CURRENT SMOKER less than a pack a day [facility] [place] [facility] Sep 14, 2011 09:51 AM V1-PT DECLINES REF TO TOBACCO CESS PRGM [facility] Sep 14, 2011 09:51 AM V1-PT DECLINES TOBACCO CESSATION MEDS [facility] Sep 14, 2011 09:51 AM V1-PT THINKING ABOUT QUIT TOBACCO USE [facility] Mar 09, 2010 09:32 AM CURRENT SMOKER 1 ppd [facility] Mar 09, 2010 09:32 AM V1-PT DECLINES TOBACCO CESSATION MEDS [facility] Mar 09, 2010 09:32 AM V1-PT REF TO NON-VA TOBACCO CESS PRGM [facility] Mar 09, 2010 09:32 AM V1-PT THINKING ABOUT QUIT TOBACCO USE [facility] Sep 29, 2009 02:07 PM V1-PT DECLINES REF TO TOBACCO CESS PRGM [facility] Sep 29, 2009 02:07 PM V1-PT DECLINES TOBACCO CESSATION MEDS [facility] Sep 29, 2009 02:07 PM V1-PT NOT INTERESTED IN QUIT TOBACCO USE [facility] Jan 29, 2009 11:00 AM CURRENT SMOKER 1 ppd [facility] Jan 29, 2009 11:00 AM V1-PT DECLINES TOBACCO CESSATION MEDS [facility] Jan 29, 2009 11:00 AM V1-PT READY TO QUIT TOBACCO USE [facility] Mar 17, 2005 08:36 AM [facility] Advance Directives: All historical and current Section Date Range: From patient's date of to the date document was created. This section includes ALL of a patient's completed or amended [place] Advance and Rescinded Directives. The entries below indicate that a directive exists for the patient, but an actual copy is not included with this document. The data comes from all [place] facilities. Date Advance Directives Provider Source Nov 11, 2023 ADVANCE DIRECTIVE JACOB DEL TORO [facility] Encounter Notes: All associated encounter notes This section contains the clinical notes associated to the Encounter. Date/Time Encounter Note(s) Provider Source Mar 01, 2023 10:27 AM OPTOMETRY CONSULT: LOCAL TITLE: CONSULT REPORT/OPTOMETRY OCT STANDARD TITLE: OPTOMETRY CONSULT DATE OF NOTE: MAR 01, 2023@10:27 ENTRY DATE: MAR 01, 2023@10:27:26 AUTHOR: MARILIN FANG COSIGNER: JESSA CAMARA URGENCY: STATUS: COMPLETED CONSULT REPORT/OPTOMETRY OCT Has ADDENDA OPTIC NERVE OCT REPORT: OCT of optic nerve obtained for patient with: Large asymmetric optic nerve head with respectful large asymmetric physiological cupping OU === OD: Signal Strength 8/10 Average RNFL Thickness: 91 Disc Area: 2.76 vertical C/D 0.69 SECTORS: normal all sectors OS: Signal Strength 7/10 Average RNFL Thickness: 94 Disc Area: 2.32 vertical C/D 0.55 SECTORS: normal all sectors Compared to Previous/Baseline OCT, findings appear stable with no sign of RNFL thinning. === ASSESSMENT/PLAN: 1. 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 After evaluating findings, ocular health seemed stable with no visually significant issues. IOPs were within normal range. Monitor progression during next CEE with annual OCT due to difficulty performing tonometry on patient. 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 Large asymmetric disc size right greater than left eye with corresponding asymmetric cupping. Overall OCT appears consistent with previous imaging studies without evidence of glaucomatous progression either eye. Will monitor in the future as physiological cupping with plan for repeat exam in 12 months and will defer repeat OCT then unless there is concerning changes to disc appearance, elevation in intraocular pressure or other physical signs concerning for possible glaucomatous progression. /natalie/ Jessa Camara OD CHIEF OF OPTOMETRY Signed: 03/02/2023 13:11 RAJ [facility]
--- OUTSIDE RECORDS SUMMARY | 2024-02-13 13:01 | XMS_ITS | Encounter Summary ---
Author Name [facility] [place] [facility] [place] Address [address] [place] [address] Care Team Providers Care Label Cutter Name Role Phone PRINCESS RAMON Primary Care [...] PART A Jul 15, 2013 PART A [id number] [facility] BRAD CUENCA JR PATIENT MEDICARE (WNR) MEDICARE (M) PART B Jul 15, 2013 PART B [id number] BRAD CUENCA JR PATIENT Selected Encounter This section includes the information on record at [place] for the Encounter. Date/Time Encounter Type Encounter Description Reason Provider Source Mar 01, 2023 09:30 AM COMPRE OPH EXAM EST PT 1/> OPTOMETRY ICD-10-CM H02.88B Meibomian gland dysfnct left eye, upper and lower eyelids PROMISE CAMARA Encounter Template Text not used by VA Assessments - Encounter Diagnoses This section includes the primary and secondary diagnoses documented for the Encounter. Date/Time Primary/Secondary Diagnosis Diagnosis Name Provider Source Mar 02, 2023 11:07 AM PRIMARY Meibomian gland dysfnct left eye, upper and lower eyelids PROMISE CAMARA [facility] [place] [facility] Mar 02, 2023 11:07 AM SECONDARY Combined forms of age-related cataract, bilateral PROMISE CAMARA [facility] [place] [facility] Mar 02, 2023 11:07 AM SECONDARY Dry eye syndrome of bilateral lacrimal glands PROMISE CAMARA [facility] [place] [facility] Mar 02, 2023 11:07 AM SECONDARY Meibomian gland dysfnct right eye, upper and lower eyelids PROMISE CAMARA [facility] [place] [facility] Mar 02, 2023 11:07 AM SECONDARY Open angle with borderline findings, low risk, bilateral PROMISE CAMARA [facility] [place] [facility] Plan of Treatment: Future Appointments (+ 6 months) and Future Tests (+/- 45 days) The Plan of Treatment section includes future care activities for the patient from all [place] [facility]. This section includes future appointments and future orders which are active, pending or scheduled. Future Appointments This section includes appointments that were scheduled to occur 6 months from the date of the Encounter, up to a maximum of 20 appointments. The data comes from all [place] treatment facilities. Appointment Date/Time Appointment Type Appointme nt Facility Name Apr 06, 2023 09:45 AM [facility] May 12, 2023 09:30 AM AMBUL[facility] - NONE [facility] May 12, 2023 11:30 AM [facility] Social History: Smoking Status (Most current) and Tobacco Use (All prior to encounter date) This section includes the most current, and the historical, smoking and tobacco- related health factors from the VA facility where the Encounter took place. Current Smoking Status This section includes the most current smoking, or tobacco-related health factor, from the VA facility where the Encounter took place. Date/Time Current Smoking Status Comment Shanell gale Jan 12, 2023 09:00 AM VA-TOBACCO USER EVERY DAY [facility] [place] [facility] Tobacco Use History This section includes a history of the smoking, or tobacco-related health factors, that were collected on or before the date of the Encounter. The data comes from the [facility] where the Encounter took place. Date/Time Smoking Status/Tobac co Use Comment Facility Jan 12, 2023 09:00 AM VA-TOBACCO USE 30 YEARS OR MORE [facility] [place] [facility] Jan 12, 2023 09:00 AM VA-TOBACCO USE ADVICE [facility] [place] [facility] Jan 12, 2023 09:00 AM VA-TOBACCO USE INCIDENT MANAGER NO [facility] [place] [facility] Jan 12, 2023 09:00 AM VA-TOBACCO USE MED NO [facility] [place] [facility] Jan 12, 2023 09:00 AM VA-TOBACCO USER EVERY DAY [facility] [place] [facility] Oct 23, 2021 08:00 AM VA-TOBACCO DOESNT USE WI 30 MIN WAKEUP [facility] [place] [facility] Oct 23, 2021 08:00 AM VA-TOBACCO USE 30 YEARS OR MORE [facility] [place] [facility] Oct 23, 2021 08:00 AM VA-TOBACCO USE ADVICE [facility] [place] [facility] Oct 23, 2021 08:00 AM VA-TOBACCO USE INCIDENT MANAGER NO [facility] [place] [facility] Oct 23, 2021 08:00 AM VA-TOBACCO USE MED NO [facility] [place] [facility] Oct 23, 2021 08:00 AM VA-TOBACCO USER EVERY DAY [facility] [place] [facility] Oct 29, 2020 10:00 AM VA-TOBACCO DOESNT USE WI 30 MIN WAKEUP [facility] [place] [facility] Oct 29, 2020 10:00 AM VA-TOBACCO USE 30 YEARS OR MORE [facility] [place] [facility] Oct 29, 2020 10:00 AM VA-TOBACCO USE ADVICE [facility] [place] [facility] Oct 29, 2020 10:00 AM VA-TOBACCO USE INCIDENT MANAGER YES [facility] [place] [facility] Oct 29, 2020 10:00 AM VA-TOBACCO USE MED NOTIFY PROVIDER [facility] [place] [facility] Oct 29, 2020 10:00 AM VA-TOBACCO USER EVERY DAY [facility] [place] [facility] Oct 10, 2019 11:00 AM VA-TOBACCO FORMER USER [facility] [place] [facility] Oct 10, 2019 11:00 AM VA-TOBACCO QUIT < 1 YEAR [facility] [place] [facility] Oct 26, 2018 07:55 AM VA-TOBACCO USE > 15 LESS THAN 30 YEARS [facility] [place] [facility] Oct 26, 2018 07:55 AM VA-TOBACCO USE ADVICE [facility] [place] [facility] Oct 26, 2018 07:55 AM VA-TOBACCO USE INCIDENT MANAGER NO [facility] [place] [facility] Oct 26, 2018 07:55 AM VA-TOBACCO USE MED NO [facility] [place] [facility] Oct 26, 2018 07:55 AM VA-TOBACCO USE WI 30 MIN [facility] [place] [facility] Oct 26, 2018 07:55 AM VA-TOBACCO USER EVERY DAY [facility] [place] [facility] Aug 04, 2017 08:53 AM CURRENT SMOKER [facility] [place] [facility] Aug 04, 2017 08:53 AM V1-PT DECLINES REF TO TOBACCO CESS PRGM [facility] [place] [facility] Aug 04, 2017 08:53 AM V1-PT DECLINES TOBACCO CESSATION MEDS [facility] [place] [facility] Aug 04, 2017 08:53 AM V1-PT THINKING ABOUT QUIT TOBACCO USE [facility] [place] [facility] Jan 31, 2017 09:51 AM QUIT TOBACCO USE IN PAST YEAR 31 days [facility] [place] [facility] Jan 26, 2016 08:36 AM CURRENT SMOKER [facility] [place] [facility] Jan 26, 2016 08:36 AM V1-PT DECLINES REF TO TOBACCO CESS PRGM [facility] [place] [facility] Jan 26, 2016 08:36 AM V1-PT DECLINES TOBACCO CESSATION MEDS [facility] [place] [facility] Jan 26, 2016 08:36 AM V1-PT THINKING ABOUT QUIT TOBACCO USE [facility] [place] [facility] Feb 20, 2015 10:25 AM QUIT TOBACCO USE IN PAST YEAR [facility] [place] [facility] June 17, 2014 07:37 AM CURRENT SMOKER Reports being an off and on smoker -cigarettes [facility] [place] [facility] June 17, 2014 07:37 AM V1-PT DECLINES REF TO TOBACCO CESS [facility] [place] [facility] June 17, 2014 07:37 AM V1-PT DECLINES TOBACCO CESSATION MEDS [facility] [place] [facility] June 17, 2014 07:37 AM V1-PT THINKING ABOUT QUIT TOBACCO USE [facility] [place] [facility] Sep 14, 2011 09:51 AM CURRENT SMOKER less than a pack a day [facility] [place] [facility] Sep 14, 2011 09:51 AM V1-PT DECLINES REF TO TOBACCO CESS PRGM [facility] [place] [facility] Sep 14, 2011 09:51 AM V1-PT DECLINES TOBACCO CESSATION MEDS [facility] [place] [facility] Sep 14, 2011 09:51 AM V1-PT THINKING ABOUT QUIT TOBACCO USE [facility] [place] [facility] Mar 09, 2010 09:32 AM CURRENT SMOKER 1 ppd [facility] [place] [facility] Mar 09, 2010 09:32 AM V1-PT DECLINES TOBACCO CESSATION MEDS [facility] [place] [facility] Mar 09, 2010 09:32 AM V1-PT REF TO NON-VA TOBACCO CESS PRGM [facility] Mar 09, 2010 09:32 AM V1-PT THINKING ABOUT QUIT TOBACCO USE [facility] [place] [facility] Sep 29, 2009 02:07 PM V1-PT DECLINES REF TO TOBACCO CESS PRGM [facility] [place] [facility] Sep 29, 2009 02:07 PM V1-PT DECLINES TOBACCO CESSATION MEDS [facility] [place] [facility] Sep 29, 2009 02:07 PM V1-PT NOT INTERESTED IN QUIT TOBACCO USE [facility] [place] [facility] Jan 29, 2009 11:00 AM CURRENT SMOKER 1 ppd [facility] [place] [facility] Jan 29, 2009 11:00 AM V1-PT DECLINES TOBACCO CESSATION MEDS [facility] [place] [facility] Jan 29, 2009 11:00 AM V1-PT READY TO QUIT TOBACCO USE [facility] Mar 17, 2005 08:36 AM CURRENT SMOKER [facility] Advance Directives: All historical and current Section Date Range: From patient's date of to the date document was created. This section includes ALL of a patient's completed or amended VA Advance and Rescinded Directives. The entries below indicate that a directive exists for the patient, but an actual copy is not included with this document. The data comes from all [place] facilities. Date Advance Directives Provider Source Nov 11, 2023 ADVANCE DIRECTIVE JACOB DEL TORO [facility] Encounter Notes: All associated encounter notes This section contains the clinical notes associated to the Encounter. Date/Time Encounter Note(s) Provider Source Mar 01, 2023 10:24 AM OPTOMETRY NOTE: LOCAL TITLE: OPTOMETRY NOTE STANDARD TITLE: OPTOMETRY NOTE DATE OF NOTE: MAR 01, 2023@10:24 ENTRY DATE: MAR 01, 2023@10:24:25 AUTHOR: ADONIS CAMARA COSIGNER: URGENCY: STATUS: COMPLETED I saw this patient in conjunction with the student and agree with stated findings and plan as noted below after reviewing both the history and repeating pitts elements of the physical exam now. Patient last seen here February 23, 2022 returns today for comprehensive eye examination. He is struggled with tonometry installation of dilating drops in the past with retinal photos taken at his last visit as we are unable to instill dilating drops. Anterior segment evaluation shows rosacea facies with meibomian gland dysfunction all 4 lids and mild bilateral dry eye disease for which he is somewhat symptomatic and requesting lubricating drops today. There is no evidence of corneal staining noted but tear break-up time is reduced. Early lateral nuclear sclerotic cataracts not visually significant at present. Update glasses today. Bilateral low risk glaucoma suspect with larger asymmetric disc size and corresponding larger asymmetric cupping right greater than left eye consistent with prior exam and retinal photos. Optic nerve OCT obtained today with no evidence of glaucomatous loss or defect noted in either eye. Pachymetry slightly thinner than average each eye (534 ??m right eye 540 ??m left eye). Follow as physiological cupping moving forward and defer repeat imaging unless there are concerning changes at future visits with regard to disc appearance, elevation in intraocular pressure or other physical signs concerning for possible glaucomatous progression either eye. Stable choroidal nevus superior quadrant left eye as previously noted and without high risk characteristics(no subretinal fluid, no elevation, no overlying lipofuscin. Plan: Patient education as noted above Reviewed exam and imaging findings now. Renew lubricating drops for mail out as requested. Update glasses today. Return in 12 months for repeat exam or sooner if need be. Ophthalmic medication reconciliation: The patient is prescribed lubricating drops to be used up to 4 times a day as needed for dry eye disease. Medication Reconciliation: Outpatient: Has the patient been taking medications as documented in the EMLR? YES: The patient has been taking medications as documented in the EMLR. Essential Medication List for Review used to complete this medication reconciliation. INCLUDED IN THIS LIST: Alphabetical list of active outpatient prescriptions dispensed from this VA (local) and dispensed from another [place] or [facility] facility (remote) as well as inpatient orders (local, pending and active), local clinic medications, locally documented non-VA medications, and local prescriptions that have or been discontinued in the past 90 days. - All changes in medications, including all non-VA/Herbal/OTC medications were entered into CPRS. - If there were any medications the patient should no longer take, they were discontinued. - The patient/caregiver was instructed to update this list, discard old lists, and take this list to the next appointment, whether with a VA or non-VA provider. Medication List: JLV Link Data on this list may not be complete. Please check JLV. Allergies/ADRs (Tool #5) FACILITY ALLERGY/ADR -------- No Remote Allergy/ADR Data available for this patient [facility]. Reconciliation (Tool #1) INCLUDED IN THIS LIST: Alphabetical list of active outpatient prescriptions dispensed from this VA (local) and dispensed from another [place] or [facility] facility (remote) as well as inpatient orders (local pending and active), local clinic medications, locally documented non-VA medications, and local prescriptions that have or been discontinued in the past 90 days. Non-VA Meds Last Documented On: Data not found NOTE The display of VA prescriptions dispensed from another [place] or [facility] facility (remote) is limited to active outpatient prescription entries matched to National Drug File at the originating site and may not include some items such as investigational drugs, compounds, etc. NOT INCLUDED IN THIS LIST: Medications self-entered by the patient into personal health records (i.e. Inveni) are NOT included in this list. Non-VA medications documented outside this [place], remote inpatient orders (regardless of status) and remote clinic medications are NOT included in this list. The patient and provider must always discuss medications the patient is taking, regardless of where the medication was dispensed or obtained. OUTPT ALBUTEROL 90MCG (CFC-F) 200D ORAL INHL (Status = Active) INHALE 2 PUFFS BY MOUTH FOUR TIMES DAILY NEEDED FOR BREATHING Rx# [id number] Last Released: 07/08/22 Qty/Days Supply: 03/15 Rx Expiration Date: 07/06/23 Refills Remainin OUTPT CARBOXYMETHYLCELLULOSE NA 0.5% OPH SOLN (Status = Active) INSTILL 1 DROP INTO EACH EYE FOUR TIMES DAILY NEEDED FOR DRY EYE Rx# [id number] Last Released: Qt/Days Supply: Rx Expiration Date: 03/01/24 Refills Remainin Indication: FOR DRY EYE OUTPT FINASTERIDE 5MG TAB (Status = Active) TAKE ONE TABLET BY MOUTH ONCE DAILY FOR PROSTATE Rx# [id number] Last Released: 01/20/23 Qty/Days Supply: Rx Expiration Date: 01/13/24 Refills Remainin OUTPT FLUTICAS 250/SALMETEROL 50 INHL DISK 60 (Status = Active) INHALE 1 PUFF BY MOUTH TWICE DAILY FOR BREATHING - RINSE MOUTH AFTER USE Rx# [id number] Last Released: 01/20/23 Qty/Days Supply: 03/15 Rx Expiration Date: 01/13/24 Refills Remainin OUTPT SILDENAFIL CITRATE 100MG TAB (Status = Active) TAKE ONE TABLET BY MOUTH ONCE A WEEK TAKE 1 HOUR PRIOR TO SEXUAL ACTIVITY (NOTE NEW TABLET STRENGTH) TAKE AT LEAST 12 HOURS APART FROM TAMULOSIN Rx# [id number] Last Released: 07/08/22 Qty/Days Supply: 08/13 Rx Expiration Date: 07/06/23 Refills Remainin Indication: FOR ERECTILE DYSFUNCTION OUTPT TAMSULOSIN HCL 0.4MG CAP (Status = Discontinued) TAKE ONE CAPSULE BY MOUTH AT BEDTIME Rx# [id number] Last Released: 07/30/22 Qty/Days Supply: Rx Expiration Date: 07/06/23 Refills Remainin OUTPT TAMSULOSIN HCL 0.4MG CAP (Status = Active) TAKE ONE CAPSULE BY MOUTH AT BEDTIME Rx# [id number] Last Released: 01/20/23 Qty/Days Supply: Rx Expiration Date: 01/13/24 Refills Remainin OUTPT TIOTROPIUM 2.5MCG/ACTUAT 60D ORAL INHL (Status = Active) INHALE 2 PUFFS BY MOUTH ONCE DAILY Rx# [id number] Last Released: 01/20/23 Qty/Days Supply: 03/15 Rx Expiration Date: 01/13/24 Refills Remainin SUPPLIES PHARMACY TERMS AND POSSIBLE PATIENT ACTIONS INPT = [place] inpatient order IV = [place] intravenous medication OUTPT = [place] outpatient prescription PHARMACY POSSIBLE PATIENT TERMS EXPLANATION ACTIONS -------- - ACTIVE A prescription that can be If you have refills, filled at the local [place] pharmacy. you may request a refill of this prescription from your VA pharmacy. CLINIC A medication you received during If you have questions a visit to a VA clinic or about this medication emergency department. contact your [place] healthcare team. DISCONTINUED A prescription your provider has Contact your VA stopped. It is no longer healthcare team if you available to be sent to you or need more of this picked up at the [place] pharmacy medication. window. A prescription which is too old Contact your VA to fill. This does not refer to healthcare team if you the expiration date of the need more of this medication in the container. medication. NON-VA A medication that came from If this medication someplace other than a VA information is pharmacy. This may be a incorrect or out of prescription from either the VA date, please tell your or non VA providers that was VA healthcare team. filled outside the VA. Or, it may be an iyjm-yvu-ltpyack (OTC), herbal, dietary supplements or sample medication. ON HOLD An active prescription that will Contact your VA not be filled until pharmacy pharmacy when you need resolves the issue. more of this medication. PARKED An active prescription that will Contact your VA not be filled until the patient pharmacy when you need requests it. this medication. PENDING This prescription order has been If you have been sent to the pharmacy for review instructed to start and is not ready yet. this medication now, contact your VA pharmacy. SUSPENDED An active prescription that is Contact your [place] not scheduled to be filled yet. pharmacy if you need You should receive it before this medication now. you run out. ==== Signs printed copy of medication list now. /natalie/ Adonis Camara OD CHIEF OF OPTOMETRY Signed: 03/02/2023 11:08 ADONIS CAMARA [facility] [place] [facility] Mar 01, 2023 09:13 AM OPTOMETRY NOTE: LOCAL TITLE: OPTOMETRY NOTE STANDARD TITLE: OPTOMETRY NOTE DATE OF NOTE: MAR 01, 2023@09:13 ENTRY DATE: MAR 01, 2023@09:14:03 AUTHOR: MARILIN FANG COSIGNER: ADONIS CAMARA URGENCY: STATUS: COMPLETED Active problems - Computerized Problem List is the source for the followin. Centriacinar emphysema 2. Impaired fasting glucose 3. Benign prostatic hyperplasia 4. Obesity 5. Open Angle Glaucoma Suspect 6. Counseling on Sexually Transmitted Diseases 7. History of colonoscopy 8. Erectile dysfunction (SNOMED CT 723429551) 9. Elevated Prostate Specific Antigen (PSA) 10. Impacted cerumen * 11. Depressive Disorder NEC 12. Nicotine dependence (SNOMED CT 59170108) 13. Hemochromatosis (SNOMED CT 461613640) Active Outpatient Medications (including Supplies): Active Outpatient Medications Status 1) ALBUTEROL 90MCG (CFC-F) 200D ORAL INHL INHALE 2 PUFFS ACTIVE BY MOUTH FOUR TIMES DAILY NEEDED FOR BREATHING 2) FINASTERIDE 5MG TAB TAKE ONE TABLET BY MOUTH ONCE ACTIVE DAILY FOR PROSTATE 3) FLUTICAS 250/SALMETEROL 50 INHL DISK 60 INHALE 1 PUFF ACTIVE BY MOUTH TWICE DAILY FOR BREATHING - RINSE MOUTH AFTER USE 4) SILDENAFIL CITRATE 100MG TAB TAKE ONE TABLET BY MOUTH ACTIVE ONCE A WEEK TAKE 1 HOUR PRIOR TO SEXUAL ACTIVITY (NOTE NEW TABLET STRENGTH) TAKE AT LEAST 12 HOURS APART FROM TAMULOSIN 5) TAMSULOSIN HCL 0.4MG CAP TAKE ONE CAPSULE BY MOUTH AT ACTIVE BEDTIME 6) TIOTROPIUM 2.5MCG/ACTUAT 60D ORAL INHL INHALE 2 PUFFS ACTIVE BY MOUTH ONCE DAILY Allergies: CHANTIX All medications including those prescribed by outside VA's, community providers, and all OTC meds were reviewed and reconciled with patient to the best of their abilities. This 72 year old MALE is seen today for routine eye exam. Chief Complaint: Came for a comprehensive eye exam. Eyes get itchy sometimes, gets better when he scratches them, does not uses any drops. Last Eye Exam: February 2022 OHx: 1. Low risk suspect for open angle glaucoma OU secondary to large ONH cupping 2. Benign choroidal nevus OS 3. ROSIO OU 4. RE and presbyopia OU (-) Pain: (-) HEREDIA: (-) Diplopia: (-) Flashes: (-) Floaters: (-) Amaurosis Fugax/Tia's: (-) Eye Injury: (-) Eye Surgery: (-) TBI FOHx: (-) Glaucoma/ARMD/Blindness Social Hx: (-) Smoker/Length of Time/PPD: 1-2 a day, in the process of quitting. Pupils: PERRL (-)APD EOMs: SAFE OU, (-)Pain/Diplopia CVF (facial, peripheral): FTFC OU Current Rx with last BCVA: OD: +2.75 -0.50 x 105 20/20 OS: +4.25 -1.00 x085 20/20-1 Add: +2.50 DVA ( )sc ( x )cc OD: 20/20-1 OS: 20/20-1 Subjective Refraction: BCVA: OD: +3.00 -0.50 x 105 20/20 OS: +4.50 -1.00 x085 20/20-1 Add: +2.50 All the above performed by student, reviewed by attending Anterior segment: Performed by student, repeated by attending Lids: dermatochalasis, chronic MGD OU Conj: hyperimia +2 OU Sclera: white OU Cornea: clear OU AC: 3x3 OU deep & quiet OU Iris: flat and clear OU Lens: NS +1 and trace ACC OU (-)PXF OU Tonometry: icare Performed by student, reviewed by attending OD 19 mmHg OS 19 mmHg Time: 9:55 am Pachymetry OD: 534 OS: 540 Fundus exam: Dilated: x Non dilated: Dilating Drops: 1GTT 1 % Tropicamide OU (Pt. ed. on side effects, dilation warning given and verbal consent obtained) Patient advised not to drive if they feel they have any symptoms which could affect their ability to drive safely. Patient advised not to engage in any activities which could put themselves or others at risk if they feel they have any symptoms which could affect their ability to perform those activities safely. Performed by student, repeated by attending Vit: clear OU C/D: 0.65/0.65 OD, 0.60/0.60 OS rim tissue is pink and healthy OU (-)drance hemes/notching OU Macula: flat and clear OU PPole: clear A/V: 2/3 OU Vessels: normal caliber OU Periph: flat and intact OU benign choridal nevus in superior quadrant OS (-) elevation and orange pigment (-) holes/tears/detachments 360 OU Assesment and Plan: 1. 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 After evaluating findings, ocular health seemed stable with no visually significant issues. IOPs were within normal range. Monitor progression during next CEE with annual OCT due to difficulty performing tonometry on patient. 2. Benign choroidal nevus OS Patient was educated on diagnosis. Findings appear stable with no elevation or orange pigmentation on nevus. Continue monitoring during next CEE. 3. Dry eye syndrome OU Patient was educated and understanding on findings. Currently asymptomatic therefore, the use of lubricating drops BID-QID OU, warm compresses and lid hygiene were recommended. Monitor during next CEE. 4. Combined cataracts OU Patient was educated and understanding on findings. Cataracts were not visually significant, but he was recommended to use UV protection to avoid rapid progression. Monitor yearly. 5. Hypermetropia, astigmatism and presbyopia OU Patient was educated on diagnosis. New Rx was order. Monitor yearly. Return to Clinic 1 year or earlier PRN /natalie/ RAJ BRAVO OPTOMETRY STUDENT Signed: 03/01/2023 14:50 /natalie/ Adonis Camara OD CHIEF OF OPTOMETRY Cosigned: 03/02/2023 11:28 RAJ FANG [facility]
--- OUTSIDE RECORDS SUMMARY | 2024-02-13 13:01 | XMS_ITS | Encounter Summary ---
Author Name [facility] [facility] [place] Address [address] [place] [address] Care Team Providers Care Advertising Associate Name Role Phone PRINCESS RAMON Primary Care Provider Unavailmely e Insurance Providers: All historical and current Section [...] Policy Ackerman MEDICARE (WNR) MEDICARE (M) PART B Jul 15, 2013 PART B [id number] [facility] [id number] BRAD CUENCA JR PATIENT MEDICARE (WNR) MEDICARE (M) PART A Jul 15, 2013 PART A [id number] BRAD CUENCA JR PATIENT Selected Encounter This section includes the information on record at [place] for the Encounter. Date/Time Encounter Type Encounter Description Reason Provider Source Mar 01, 2023 11:20 AM FIT SPECTACLES MULTIFOCAL OPTOMETRY ICD-10-CM Z46.0 Encounter for fit/adjst of spectacles and contact lenses PROMISE CAMARA Encounter Template Text not used by [facility] Assessments - Encounter Diagnoses This section includes the primary and secondary diagnoses documented for the Encounter. Date/Time Primary/Secondary Diagnosis Diagnosis Name Provider Source Mar 01, 2023 11:20 AM PRIMARY Encounter for fit/adjst of spectacles and contact lenses CATRACHITA [facility]MMANUEL [facility] Plan of Treatment: Future Appointments (+ 6 months) and Future Tests (+/- 45 days) The Plan of Treatment section includes future care activities for the patient [facility] [place] [facility] This section includes future appointments and future orders which are active, pending or scheduled. Future Appointments This section includes appointments that were scheduled to occur 6 months from the date of the Encounter, up to a maximum of 20 appointments. The data comes from all [place] treatment facilities. Appointment Date/Time Appointment Type Appointme nt Facility Name Apr 06, 2023 09:45 AM AMBULATORY - MEDICINE [facility] May 12, 2023 09:30 AM [facility] NONE [facility] May 12, 2023 11:30 AM AMBULATORY - MEDICINE [facility] Social History: Smoking Status (Most current) and Tobacco Use (All prior to encounter date) This section includes the most current, and the historical, smoking and tobacco- related health factors from the [place] facility where the Encounter took place. Current Smoking Status This section includes the most current smoking, or tobacco-related health factor, from the [place] facility where the Encounter took place. Date/Time Current Smoking Status Comment [facility] Jan 12, 2023 09:00 AM VA-TOBACCO USER EVERY DAY [facility] Tobacco Use History This section includes a history of the smoking, or tobacco-related health factors, that were collected on or before the date of the Encounter. The data comes from the [place] facility where the Encounter took place. Date/Time Smoking Status/Tobac co Use Comment Facility Jan 12, 2023 09:00 AM VA-TOBACCO USE 30 YEARS OR MORE [place] [facility] Jan 12, 2023 09:00 AM VA-TOBACCO USE ADVICE [facility] Jan 12, 2023 09:00 AM VA-TOBACCO USE OPEN CLAIMS REPRESENTATIVE [facility] Jan 12, 2023 09:00 AM VA-TOBACCO USE MED NO [facility] [place] [facility] Jan 12, 2023 09:00 AM VA-TOBACCO USER EVERY DAY [facility] [place] [facility] Oct 23, 2021 08:00 AM VA-TOBACCO DOESNT USE WI 30 MIN WAKEUP [facility] [place] [facility] Oct 23, 2021 08:00 AM VA-TOBACCO USE 30 YEARS OR MORE [facility] [place] [facility] Oct 23, 2021 08:00 AM VA-TOBACCO USE ADVICE [facility] [place] [facility] Oct 23, 2021 08:00 AM VA-TOBACCO USE OPEN CLAIMS REPRESENTATIVE NO [facility] [place] [facility] Oct 23, 2021 08:00 AM VA-TOBACCO USE MED NO [facility] [place] [facility] Oct 23, 2021 08:00 AM VA-TOBACCO USER EVERY DAY [facility] [place] [facility] Oct 29, 2020 10:00 AM VA-TOBACCO DOESNT USE WI 30 MIN WAKEUP [place] [facility] [place] [facility] Oct 29, 2020 10:00 AM VA-TOBACCO USE 30 YEARS OR MORE [place] [facility] [place] [facility] Oct 29, 2020 10:00 AM VA-TOBACCO USE ADVICE [place] [facility] [place] [facility] Oct 29, 2020 10:00 AM VA-TOBACCO USE OPEN CLAIMS REPRESENTATIVE YES [place] [facility] [place] [facility] Oct 29, 2020 10:00 AM VA-TOBACCO USE MED NOTIFY PROVIDER [place] [facility] [place] [facility] Oct 29, 2020 10:00 AM VA-TOBACCO USER EVERY DAY [place] [facility] [place] [facility] Oct 10, 2019 11:00 AM VA-TOBACCO FORMER USER [facility] [place] [facility] Oct 10, 2019 11:00 AM VA-TOBACCO QUIT < 1 YEAR [facility] [place] [facility] Oct 26, 2018 07:55 AM VA-TOBACCO USE > 15 LESS THAN 30 YEARS [facility] [place] [facility] Oct 26, 2018 07:55 AM VA-TOBACCO USE ADVICE [facility] [place] [facility] Oct 26, 2018 07:55 AM VA-TOBACCO USE OPEN CLAIMS REPRESENTATIVE NO [facility] [place] [facility] Oct 26, 2018 07:55 AM VA-TOBACCO USE MED NO [place] [facility] [place] [facility] Oct 26, 2018 07:55 AM VA-TOBACCO USE WI 30 MIN OF WAKEUP [place] [facility] [place] [facility] Oct 26, 2018 07:55 AM VA-TOBACCO USER EVERY DAY [facility] [place] [facility] Aug 04, 2017 08:53 AM CURRENT SMOKER [facility] [place] [facility] Aug 04, 2017 08:53 AM V1-PT DECLINES REF TO TOBACCO CESS PRGM [facility] [place] [facility] Aug 04, 2017 08:53 AM V1-PT DECLINES TOBACCO CESSATION MEDS [facility] [place] [facility] Aug 04, 2017 08:53 AM V1-PT THINKING ABOUT QUIT TOBACCO USE [facility] [place] [facility] Jan 31, 2017 09:51 AM QUIT TOBACCO USE IN PAST YEAR 31 days [facility] [place] [facility] Jan 26, 2016 08:36 AM CURRENT SMOKER [facility] [place] [facility] Jan 26, 2016 08:36 AM V1-PT DECLINES REF TO TOBACCO CESS PRGM [facility] [place] [facility] Jan 26, 2016 08:36 AM V1-PT DECLINES TOBACCO CESSATION MEDS [facility] [place] [facility] Jan 26, 2016 08:36 AM V1-PT THINKING ABOUT QUIT TOBACCO USE [facility] [place] [facility] Feb 20, 2015 10:25 AM QUIT TOBACCO USE IN PAST YEAR [facility] [place] [facility] June 17, 2014 07:37 AM CURRENT SMOKER Reports being an off and on smoker -cigarettes [facility] [place] [facility] June 17, 2014 07:37 AM V1-PT DECLINES REF TO TOBACCO CESS PRGM [place] [facility] [place] [facility] June 17, 2014 07:37 AM V1-PT DECLINES TOBACCO CESSATION MEDS [facility] [place] [facility] June 17, 2014 07:37 AM V1-PT THINKING ABOUT QUIT TOBACCO USE [facility] [place] [facility] Sep 14, 2011 09:51 AM CURRENT SMOKER less than a pack a day [facility] [place] [facility] Sep 14, 2011 09:51 AM V1-PT DECLINES REF TO TOBACCO CESS PRGM [facility] Sep 14, 2011 09:51 AM V1-PT DECLINES TOBACCO CESSATION MEDS [facility] Sep 14, 2011 09:51 AM V1-PT THINKING ABOUT QUIT TOBACCO USE [facility] Mar 09, 2010 09:32 AM CURRENT SMOKER 1 ppd [facility] Mar 09, 2010 09:32 AM V1-PT DECLINES TOBACCO CESSATION MEDS [facility] Mar 09, 2010 09:32 AM V1-PT REF TO NON-VA TOBACCO CESS PRGM [facility] Mar 09, 2010 09:32 AM V1-PT THINKING ABOUT QUIT TOBACCO USE [facility] Sep 29, 2009 02:07 PM V1-PT DECLINES REF TO TOBACCO CESS PRGM [facility] Sep 29, 2009 02:07 PM V1-PT DECLINES TOBACCO CESSATION MEDS [facility] Sep 29, 2009 02:07 PM V1-PT NOT INTERESTED IN QUIT TOBACCO USE [facility] Jan 29, 2009 11:00 AM CURRENT SMOKER 1 ppd [facility] Jan 29, 2009 11:00 AM V1-PT DECLINES TOBACCO CESSATION MEDS [facility] Jan 29, 2009 11:00 AM V1-PT READY TO QUIT TOBACCO USE [facility] Mar 17, 2005 08:36 AM CURRENT SMOKER [facility] Advance Directives: All historical and current Section Date Range: From patient's date of to the date document was created. This section includes ALL of a patient's completed or amended [place] Advance and Rescinded Directives. The entries below indicate that a directive exists for the patient, but an actual copy is not included with this document. The data comes from all [place] facilities. Date Advance Directives Provider Source Nov 11, 2023 ADVANCE DIRECTIVE JACOB DEL TORO [facility] [place] [facility] Encounter Notes: All associated encounter notes This section contains the clinical notes associated to the Encounter. Date/Time Encounter Note(s) Provider Source Mar 01, 2023 11:20 AM OPTOMETRY NOTE: LOCAL TITLE: OPTOMETRY NOTE STANDARD TITLE: OPTOMETRY NOTE DATE OF NOTE: MAR 01, 2023@11:20 ENTRY DATE: MAR 01, 2023@11:20:26 AUTHOR: CELIA ANNA EXP COSIGNER: URGENCY: STATUS: COMPLETED OPTOMETRY NOTE Has ADDENDA prog clear The quote provided below is for informational purposes only. Please verify prior to the creation of a purchase order. BRAD CUENCA 1490 RX INFORMATION OD +3.00 -0.50 X105 Add:+2.50 Pzm:0.00 Dir: Prz2:0.00 Dir2: OS +4.50 -1.00 X85 Add:+2.50 Pzm:0.00 Dir: Prz2:0.00 Dir2: FITTING INFORMATION FPD: NPD: Anderson:R:36.5 L:36.5 SEG HT:R:23 L:23 Tint:None Shade:None VA Billable Items FRAME: GIANNI ZIMMERMAN [id number] Right Lens: POLY VA PROGRESSIVE 1.586 POLY Left Lens: POLY VA PROGRESSIVE 1.586 POLY prog sun brown The quote provided below is for informational purposes only. Please verify prior to the creation of a purchase order. BRAD CUENCA 1490 RX INFORMATION OD +3.00 -0.50 X105 Add:+2.50 Pzm:0.00 Dir: Prz2:0.00 Dir2: OS +4.50 -1.00 X85 Add:+2.50 Pzm:0.00 Dir: Prz2:0.00 Dir2: FITTING INFORMATION FPD: NPD: Anderson:R:36.5 L:36.5 SEG HT:R:22 L:22 Tint:BROWN Shade:3 VA Billable Items FRAME: EMMETT HARRISON [id number] Right Lens: POLY VA PROGRESSIVE 1.586 POLY Left Lens: POLY VA PROGRESSIVE 1.586 POLY SOLID TINT /es/ CELIA ANNA EMBOSSING PRESS OPERATOR APPRENTICE Signed: 03/01/2023 11:20 Receipt Acknowledged By: 03/01/2023 12:46 /natalie/ CATRACHITA EMMANUEL OPTOMETRY TECH 03/01/2023 ADDENDUM STATUS: COMPLETED PDS Levers Lace Machine Operator fit patient with 1 pair(s) of progressive clear, and 1 pair of progressive sun brown eyeglasses on 03/01/2023. OPT HT entered consult(s) as requested for provider signature. /natalie/ CATRACHITA EMMANUEL OPTOMETRY TECH Signed: 03/01/2023 12:51 CELIA ANNA CN[facility]L W[facility]
--- OUTSIDE RECORDS SUMMARY | 2024-02-13 13:02 | XMS_ITS | Encounter Summary ---
Author Name [facility] [place] Organization [facility] [place] Address [address] [place] [address] Care Team Providers Care Retail Bakery Manager Name Role Phone PRINCESS RAMON Primary Care Provider Unavailabl e Insurance Providers: All historical and current [...] PART B Jul 15, 2013 PART B [id number] BRAD CUENCA JR PATIENT MEDICARE (WNR) MEDICARE (M) PART A Jul 15, 2013 PART A [id number] BRAD CUENCA JR PATIENT Selected Encounter This section includes the information on record at [place] for the Encounter. Date/Time Encounter Type Encounter Description Reason Pro vider Source May 12, 2023 12:00 AM Outpatient Encounter EVENT (HISTORICAL) IHE Encounter Template Text not used by [...] [place] treatment facilities. Appointment Date/Time Appointment Type Appointme nt Facility Name Nov 11, 2023 09:00 AM AMBULATORY - MEDICINE [facility] [facility] Vital Signs: All taken on the encounter date This section contains inpatient and outpatient Vital Signs collected on the date of the Encounter. Date/Time Temperature Pulse Blood Pressure Respiratory Rate SP02 Pain Height Weight Body Mass Index Source May 12, 2023 11:42 AM 112/79 [place] [facility] [place] [place] [facility] May 12, 2023 11:17 AM 97.9 90 142/86 16 94 0 250 35 [place] [facility] [place] [facility] Social History: Smoking Status (Most current) and Tobacco Use (All prior to encounter date) This section includes the most current, and the historical, smoking and tobacco- related health factors from the [place] facility where the Encounter took place. Current Smoking Status This section includes the most current smoking, or tobacco-related health factor, from the [place] facility where the Encounter took place. Date/Time Current Smoking Status Comment [facility] it Jan 12, 2023 09:00 AM VA-TOBACCO USER EVERY DAY [facility] Tobacco Use History This section includes a history of the smoking, or tobacco-related health factors, that were collected on or before the date of the Encounter. The data comes from the [place] facility where the Encounter took place. Date/Time Smoking Status/Tobac co Use Comment Facility Jan 12, 2023 09:00 AM VA-TOBACCO USE 30 YEARS OR MORE [place] [facility] [place] [facility] Jan 12, 2023 09:00 AM VA-TOBACCO USE ADVICE [facility] [place] [facility] Jan 12, 2023 09:00 AM VA-TOBACCO USE PULVI MIXER OPERATOR NO [place] [facility] [place] [facility] Jan 12, 2023 09:00 AM VA-TOBACCO USE MED NO [place] [facility] [place] [facility] Jan 12, 2023 09:00 AM VA-TOBACCO USER EVERY DAY [facility] [place] [facility] Oct 23, 2021 08:00 AM VA-TOBACCO DOESNT USE WI 30 MIN WAKEUP [facility] [place] [facility] Oct 23, 2021 08:00 AM VA-TOBACCO USE 30 YEARS OR MORE [facility] [place] [facility] Oct 23, 2021 08:00 AM VA-TOBACCO USE ADVICE [facility] [place] [facility] Oct 23, 2021 08:00 AM VA-TOBACCO USE PULVI MIXER OPERATOR NO [facility] [place] [facility] Oct 23, 2021 08:00 AM VA-TOBACCO USE MED NO [facility] [place] [facility] Oct 23, 2021 08:00 AM VA-TOBACCO USER EVERY DAY [facility] [place] [facility] Oct 29, 2020 10:00 AM VA-TOBACCO DOESNT USE WI 30 MIN WAKEUP [facility] [place] [facility] Oct 29, 2020 10:00 AM VA-TOBACCO USE 30 YEARS OR MORE [facility] [place] [facility] Oct 29, 2020 10:00 AM VA-TOBACCO USE ADVICE [facility] [place] [facility] Oct 29, 2020 10:00 AM VA-TOBACCO USE PULVI MIXER OPERATOR YES [facility] [place] [facility] Oct 29, 2020 10:00 AM VA-TOBACCO USE MED NOTIFY PROVIDER [facility] [place] [facility] Oct 29, 2020 10:00 AM VA-TOBACCO USER EVERY DAY [facility] [place] [facility] Oct 10, 2019 11:00 AM VA-TOBACCO FORMER USER [facility] [place] [facility] Oct 10, 2019 11:00 AM VA-TOBACCO QUIT < 1 YEAR [facility] [place] [facility] Oct 26, 2018 07:55 AM VA-TOBACCO USE > 15 LESS THAN 30 YEARS [facility] [place] [facility] Oct 26, 2018 07:55 AM VA-TOBACCO USE ADVICE [facility] [place] [facility] Oct 26, 2018 07:55 AM VA-TOBACCO USE PULVI MIXER OPERATOR NO [facility] [place] [facility] Oct 26, 2018 07:55 AM VA-TOBACCO USE MED NO [facility] [place] [facility] Oct 26, 2018 07:55 AM VA-TOBACCO USE WI 30 MIN OF WAKEUP [facility] [place] [facility] Oct 26, 2018 07:55 AM VA-TOBACCO USER EVERY DAY [facility] [place] [facility] Aug 04, 2017 08:53 AM CURRENT SMOKER [facility] [place] [facility] Aug 04, 2017 08:53 AM V1-PT DECLINES REF TO TOBACCO CESS PRGM [facility] [place] [facility] Aug 04, 2017 08:53 AM V1-PT DECLINES TOBACCO CESSATION MEDS [facility] [place] [facility] Aug 04, 2017 08:53 AM V1-PT THINKING ABOUT QUIT TOBACCO USE [facility] [place] [facility] Jan 31, 2017 09:51 AM QUIT TOBACCO USE IN PAST YEAR 31 days [facility] [place] [facility] Jan 26, 2016 08:36 AM CURRENT SMOKER [facility] [place] [facility] Jan 26, 2016 08:36 AM V1-PT DECLINES REF TO TOBACCO CESS PRGM [facility] [place] [facility] Jan 26, 2016 08:36 AM V1-PT DECLINES TOBACCO CESSATION MEDS [facility] [place] [facility] Jan 26, 2016 08:36 AM V1-PT THINKING ABOUT QUIT TOBACCO USE [facility] [place] [facility] Feb 20, 2015 10:25 AM QUIT TOBACCO USE IN PAST YEAR [facility] [place] [facility] June 17, 2014 07:37 AM CURRENT SMOKER Reports being an off and on smoker -cigarettes [facility] [place] [facility] June 17, 2014 07:37 AM V1-PT DECLINES REF TO TOBACCO CESS PRGM [facility] [place] [facility] June 17, 2014 07:37 AM V1-PT DECLINES TOBACCO CESSATION MEDS [facility] [place] [facility] June 17, 2014 07:37 AM V1-PT THINKING ABOUT QUIT TOBACCO USE [facility] [place] [facility] Sep 14, 2011 09:51 AM CURRENT SMOKER less than a pack a day [facility] [place] [facility] Sep 14, 2011 09:51 AM V1-PT DECLINES REF TO TOBACCO CESS PRGM [facility] [place] [facility] Sep 14, 2011 09:51 AM V1-PT DECLINES TOBACCO CESSATION MEDS [facility] [place] [facility] Sep 14, 2011 09:51 AM V1-PT THINKING ABOUT QUIT TOBACCO USE [facility] Mar 09, 2010 09:32 AM CURRENT SMOKER 1 ppd [facility] Mar 09, 2010 09:32 AM V1-PT DECLINES TOBACCO [facility]ESSATION [facility] Mar 09, 2010 09:32 AM V1-PT REF TO NON-VA TOBACCO CESS PRGM [facility] Mar 09, 2010 09:32 AM V1-PT THINKING ABOUT QUIT TOBACCO USE [facility] Sep 29, 2009 02:07 PM V1-PT DECLINES REF TO TOBACCO CESS PRGM [facility] Sep 29, 2009 02:07 PM V1-PT DECLINES TOBACCO CESSATION MEDS [facility] Sep 29, 2009 02:07 PM V1-PT NOT INTERESTED IN QUIT TOBACCO USE [facility] Jan 29, 2009 11:00 AM CURRENT SMOKER 1 ppd [facility] Jan 29, 2009 11:00 AM V1-PT DECLINES TOBACCO CESSATION MEDS [facility] Jan 29, 2009 11:00 AM V1-PT READY TO QUIT TOBACCO USE [facility] Mar 17, 2005 08:36 AM CURRENT SMOKER [facility] Advance Directives: All historical and current Section Date Range: From patient's date of to the date document was created. This section includes ALL of a patient's completed or amended [place] Advance and Rescinded Directives. The entries below indicate that a directive exists for the patient, but an actual copy is not included with this document. The data comes from all [place] facilities. Date Advance Directives Provider Source Nov 11, 2023 ADVANCE DIRECTIVE JACOB DEL TORO [facility] Radiology Reports: +/- 30 days of the encounter Radiology Reports For cases when an order for radiology services may have been completed prior to the date of the Encounter, the report list includes the Radiology Reports that were completed up to 30 days before dateof the Encounter. For cases when an order for radiology services may have been completed after the date of the Encounter, the report list also includes the Radiology Reports that were completed up to30 days after date of the Encounter. The data comes from all [place] treatment facilities. Date/Time Radiology Report Provider Source May 12, 2023 09:31 AM LDCT LCS 1, 3 OR 6 MONTH FOLLOW UP: BRAD CUENCA [id number] M Exm Date: MAY 12, 2023@09:31 Req Phys: VIRA CRUZ Loc: ZZCWM/NO/LCS ADMIN (Req'g Loc) Img Loc: NHM/CT Service: Unknown (Case [id number] COMPLETE) LDCT LCS 1, 3 OR 6 MONTH FOLLOW U(CT Detailed) CPT:07547 Reason for Study: Lung Cancer Screening Clinical History: Short interval LDCT follow up. TPY 60 , currently smoking Comparison Scan: CT Chest 01/12/23: New 6.7 mm right lower lobe pulmonary nodule. CT Chest 12/24/21, Report Status: Verified Date Reported: MAY 12, 2023 Date Verified: MAY 12, 2023 Divisional Storekeeper E-Sig:/ES/SHYAM BROWN JR Report: Study: LDCT LCS 1, 3 OR 6 MONTH FOLLOW UP. Provided History: Lung cancer screening. Comparison: CT scan of the chest from January 12, 2023, December 24, 2021, December 22, 2020, November 01, 2019 and February 20, 2015 and June 26, 2014. Technique: 1 mm lung algorithm and 3 mm soft tissue algorithm axial reconstructions from the lung apices through the lung bases without the administration of intravenous contrast as per standard department protocol for lung cancer screening. Subsequently, sagittal and coronal reformats were generated. MIP images also provided and reviewed. Secondary computer-aided detection with post-processing from [employer] is used. The lack of intravenous contrast inherently limits the evaluation of hilar structures, vascular structures, and abnormal enhancement patterns. Lower than standard dose was utilized limiting sensitivity for fine parenchymal detail. Dose Parameters: CTDI(vol): 3.4 mGy. DLP: 128.8 mGy*cm. Findings: Lungs: Emphysema: Moderate centrilobular and paraseptal emphysematous changes with associated scattered parenchymal scarring is unchanged. Index Nodule: The previously newly present and right lower lobe solid, well-circumscribed 6.7 mm pulmonary nodule now measures 4.9 mm in greatest dimension, 8-333. Other Nodules: None. Lungs/airway findings: No acute pulmonary process or pleural effusion identified. Mild dependent changes at the lung bases are stable. Heart, mediastinum and lymph nodes: The heart size is normal. No pericardial effusion identified. Normal caliber thoracic aorta. No mediastinal or hilar lymphadenopathy by size criteria. No axillary lymphadenopathy by size criteria. Normal caliber pulmonary arteries. Visualized coronary artery calcifications: Atherosclerotic changes of the aorta and coronary arteries. Upper abdomen: Simple cyst again seen in the right lobe of the liver. Partially visualized simple cysts in the right kidney. Bones and soft tissues: Normal age-related degenerative changes present. No acute bony abnormality identified. Healed left 11th lateral rib fracture. Other findings: None. Impression: Decreasing size of the right lower lobe index nodule. No new concerning pulmonary nodule or mass identified. Return to normal screening interval. Lung-RADS Assessment: Category 2, benign appearance or behavior. Recommendation: Continue annual screening with lung cancer screening CT in 12 months. Other Significant Findings and Recommendations: None. Primary Diagnostic Code: No immediate attention required Secondary Diagnostic Codes: LUNGRADS 2: BENIGN APPEARANCE OR BEHAVIOR Primary Interpreting Staff: SHYAM BROWN JR, Radiologist (Divisional Storekeeper) /SHYAM DAVILA JR [facility]
--- OUTSIDE RECORDS SUMMARY | 2024-02-13 13:02 | XMS_ITS ---
Author Name [facility] [place] [facility] [place] [facility] [place] [facility] [place] Address [address] [place] [address] Care Team Providers Care Groundskeeper Name Role Phone PRINCESS RAMON Primary Care [...] PART B Jul 15, 2013 PART B [id number] BRAD BOATENG JR PATIENT MEDICARE (WNR) MEDICARE (M) PART A Jul 15, 2013 PART A [id number] BRAD BOATENG JR PATIENT Selected Encounter This section includes the information on record at [place] for the Encounter. Date/Time Encounter Type Encounter Description Reason Provider Source May 12, 2023 01:17 PM QNHP OL DIG ASSMT&MGMT 11-20 PULMONARY/CHEST ICD-10-CM R91.1 Solitary pulmonary nodule DANIAL GOMEZ CCA L [facility] Encounter Template Text not used by [place] Assessments - Encounter Diagnoses This section includes the primary and secondary diagnoses documented for the Encounter. Date/Time Primary/Secondary Diagnosis Diagnosis Name Provider Source May 12, 2023 01:54 PM PRIMARY Solitary pulmonary nodule DANIAL GOMEZ CCA L [facility] Plan of Treatment: Future Appointments (+ 6 months) and Future Tests (+/- 45 days) The Plan of Treatment section includes future care activities for the patient from all [place] treatmentfacilities. This section includes future appointments and future orders which are active, pending or scheduled. Future Appointments This section includes appointments that were scheduled to occur 6 months from the date of the Encounter, up to a maximum of 20 appointments. The data comes from all [place] treatment facilities. Appointment Date/Time Appointment Type Appointme nt Facility Name Nov 11, 2023 09:00 AM AMBULATORY - MEDICINE [facility] Vital Signs: All taken on the encounter date This section contains inpatient and outpatient Vital Signs collected on the date of the Encounter. Date/Time Temperature Pulse Blood Pressure Respiratory Rate SP02 Pain Height Weight Body Mass Index Source May 12, 2023 11:42 AM 112/79 [facility] May 12, 2023 11:17 AM 97.9 90 142/86 16 94 0 250 35 [facility] Social History: Smoking Status (Most current) and Tobacco Use (All prior to encounter date) This section includes the most current, and the historical, smoking and tobacco- related health factors from the [place] facility where the Encounter took place. Current Smoking Status This section includes the most current smoking, or tobacco-related health factor, from the [place] facility where the Encounter took place. Date/Time Current Smoking Status Comment Shanell shanks Jan 12, 2023 09:00 AM VA-TOBACCO USER EVERY DAY [facility] Tobacco Use History This section includes a history of the smoking, or tobacco-related health factors, that were collected on or before the date of the Encounter. The data comes from the [place] facility where the Encounter took place. Date/Time Smoking Status/Tobac co Use Comment Facility Jan 12, 2023 09:00 AM [place]-TOBACCO USE 30 YEARS OR MORE [facility] Jan 12, 2023 09:00 AM VA-TOBACCO USE ADVICE [facility] Jan 12, 2023 09:00 AM VA-TOBACCO USE QI SPECIALIST NO [facility] [place] [facility] Jan 12, 2023 09:00 AM VA-TOBACCO USE MED NO [facility] [place] [facility] Jan 12, 2023 09:00 AM VA-TOBACCO USER EVERY DAY [facility] [place] [facility] Oct 23, 2021 08:00 AM VA-TOBACCO DOESNT USE WI 30 MIN WAKEUP [facility] [place] [facility] Oct 23, 2021 08:00 AM VA-TOBACCO USE 30 YEARS OR MORE [facility] [place] [facility] Oct 23, 2021 08:00 AM VA-TOBACCO USE ADVICE [facility] [place] [facility] Oct 23, 2021 08:00 AM VA-TOBACCO USE QI SPECIALIST NO [facility] [place] [facility] Oct 23, 2021 08:00 AM VA-TOBACCO USE MED NO [facility] [place] [facility] Oct 23, 2021 08:00 AM VA-TOBACCO USER EVERY DAY [facility] [place] [facility] Oct 29, 2020 10:00 AM VA-TOBACCO DOESNT USE WI 30 MIN WAKEUP [facility] [place] [facility] Oct 29, 2020 10:00 AM VA-TOBACCO USE 30 YEARS OR MORE [facility] [place] [facility] Oct 29, 2020 10:00 AM VA-TOBACCO USE ADVICE [facility] [place] [facility] Oct 29, 2020 10:00 AM VA-TOBACCO USE QI SPECIALIST YES [facility] [place] [facility] Oct 29, 2020 10:00 AM VA-TOBACCO USE MED NOTIFY PROVIDER [facility] [place] [facility] Oct 29, 2020 10:00 AM VA-TOBACCO USER EVERY DAY [facility] [place] [facility] Oct 10, 2019 11:00 AM VA-TOBACCO FORMER USER [facility] [place] [facility] Oct 10, 2019 11:00 AM VA-TOBACCO QUIT < 1 YEAR [facility] [place] [facility] Oct 26, 2018 07:55 AM VA-TOBACCO USE > 15 LESS THAN 30 YEARS [facility] [place] [facility] Oct 26, 2018 07:55 AM [facility] [place] [facility] Oct 26, 2018 07:55 AM VA-TOBACCO USE QI SPECIALIST NO [facility] [place] [facility] Oct 26, 2018 07:55 AM [facility]CO [facility] MED [facility] [place] [facility] Oct 26, 2018 07:55 AM VA-TOBACCO USE WI 30 MIN OF WAKEUP [facility] [place] [facility] Oct 26, 2018 07:55 AM VA-TOBACCO USER EVERY DAY [facility] [place] [facility] Aug 04, 2017 08:53 AM CURRENT SMOKER [facility] [place] [facility] Aug 04, 2017 08:53 AM V1-PT DECLINES REF TO TOBACCO CESS PRGM [facility] [place] [facility] Aug 04, 2017 08:53 AM V1-PT DECLINES TOBACCO CESSATION MEDS [facility] Aug 04, 2017 08:53 AM V1-PT THINKING ABOUT QUIT TOBACCO USE [facility] [place] [facility] Jan 31, 2017 09:51 AM QUIT TOBACCO USE IN PAST YEAR 31 days [facility] Jan 26, 2016 08:36 AM CURRENT SMOKER [facility] [place] [facility] Jan 26, 2016 08:36 AM V1-PT DECLINES REF TO TOBACCO CESS [facility] [place] [facility] Jan 26, 2016 08:36 AM V1-PT DECLINES TOBACCO [facility]ESSATION [facility] [place] [facility] Jan 26, 2016 08:36 AM V1-PT THINKING ABOUT QUIT TOBACCO USE [facility] [place] [facility] Feb 20, 2015 10:25 AM QUIT TOBACCO USE IN PAST YEAR [facility] [place] [facility] June 17, 2014 07:37 AM CURRENT SMOKER Reports being an off and on smoker -cigarettes [facility] [place] [facility] June 17, 2014 07:37 AM V1-PT DECLINES REF TO TOBACCO CESS [facility] June 17, 2014 07:37 AM V1-PT DECLINES TOBACCO CESSATION MEDS [facility] [place] [facility] June 17, 2014 07:37 AM V1-PT THINKING ABOUT QUIT TOBACCO USE [facility] Sep 14, 2011 09:51 AM CURRENT SMOKER less than a pack a day [facility] Sep 14, 2011 09:51 AM V1-PT DECLINES REF TO TOBACCO CESS PRGM [facility] Sep 14, 2011 09:51 AM V1-PT DECLINES TOBACCO CESSATION MEDS [facility] Sep 14, 2011 09:51 AM V1-PT THINKING ABOUT QUIT TOBACCO USE [facility] Mar 09, 2010 09:32 AM CURRENT SMOKER 1 ppd [facility] Mar 09, 2010 09:32 AM V1-PT DECLINES TOBACCO CESSATION MEDS [facility] Mar 09, 2010 09:32 AM V1-PT REF TO NON-VA TOBACCO CESS PRGM [facility] Mar 09, 2010 09:32 AM V1-PT THINKING ABOUT QUIT TOBACCO USE [facility] Sep 29, 2009 02:07 PM V1-PT DECLINES REF TO TOBACCO CESS PRGM [facility] Sep 29, 2009 02:07 PM V1-PT DECLINES TOBACCO CESSATION MEDS [facility] Sep 29, 2009 02:07 PM V1-PT NOT INTERESTED IN QUIT TOBACCO USE [facility] Jan 29, 2009 11:00 AM CURRENT SMOKER 1 ppd [facility] Jan 29, 2009 11:00 AM V1-PT DECLINES TOBACCO CESSATION MEDS [facility] Jan 29, 2009 11:00 AM V1-PT READY TO QUIT TOBACCO USE [facility] Mar 17, 2005 08:36 AM CURRENT SMOKER [facility] Advance Directives: All historical and current Section Date Range: From patient's date of to the date document was created. This section includes ALL of a patient's completed or amended [place] Advance and Rescinded Directives. The entries below indicate that a directive exists for the patient, but an actual copy is not included with this document. The data comes from all [place] facilities. Date Advance Directives Provider Source Nov 11, 2023 ADVANCE DIRECTIVE JACOB DEL TORO [place] [facility] Radiology Reports: +/- 30 days of [...] the Encounter. The data comes from all [place] treatment facilities. Date/Time Radiology Report Provider Source May 12, 2023 09:31 AM LDCT LCS 1, 3 OR 6 MONTH FOLLOW UP: BRAD BOATENG [id number] M Exm Date: MAY 12, 2023@09:31 Req Phys: VIRA CRUZ Pat Loc: [facility]/NO/LCS ADMIN (Req'g Loc) Img Loc: [facility]/CT Service: Unknown (Case [id number] COMPLETE) LDCT LCS 1, 3 OR 6 MONTH FOLLOW U(CT Detailed) CPT:79121 Reason for Study: Lung Cancer Screening Clinical History: Short interval LDCT follow up. TPY 60 , currently smoking Comparison Scan: CT Chest 01/12/23: New 6.7 mm right lower lobe pulmonary nodule. CT Chest 12/24/21, Report Status: Verified Date Reported: MAY 12, 2023 Date Verified: MAY 12, 2023 Sign Fabricator E-Sig:/ES/SHYAM BROWN JR Report: Study: LDCT LCS [...] reviewed. Secondary computer-aided detection with post-processing from [employer] is used. The lack of intravenous contrast [...] Primary Interpreting Staff: SHYAM BROWN JR, Radiologist (Sign Fabricator) /SHYAM DAVILA JR [facility] Encounter Notes: All associated encounter notes This section contains the clinical notes associated to the Encounter. Date/Time Encounter Note(s) Provider Source May 12, 2023 01:55 PM PREVENTIVE MEDICINE RISK ASSESSMENT SCREENING NOTE: LOCAL TITLE: LUNG CANCER SCREENING DOCUMENTATION STANDARD TITLE: PREVENTIVE MEDICINE RISK ASSESSMENT SCREENING NO DATE OF NOTE: MAY 12, 2023@13:55 ENTRY DATE: MAY 12, 2023@13:55:27 AUTHOR: LUIGI GOMEZ EXP COSIGNER: URGENCY: STATUS: COMPLETED Apr Dear Mr. Boateng: Your recent lung cancer screening CT scan found a small lung nodule. Most nodules are not lung cancer, but a few can grow into lung cancer. As mentioned in the enclosed brochure, nodules are often caused by scar tissue, a healed infection, or some other irritant found in the air we breathe. Nodules are detected in up to half of screening CT scans, but very few nodules return to vendor to be cancer. In general, more than 95 out of 100 nodules found on lung cancer screening CT scans are not lung cancer. If there are additional findings, we will alert your primary care team. A copy if the results from your Low-Dose CT scan done on 05/12/2023 are enclosed with this letter. Your next lung cancer screening CT scan is due in 12 months, APRIL 2024. You may reach our radiology team M-F between the hours of 8am and 4pm at [phone] for scheduling purposes. If you are experiencing an upper respiratory illness like a cold or the flu, please get your scan 4 weeks after your symptoms have gone away. Lung cancer screening can detect lung cancer, but it does not prevent it. Rarely, a CT scan can miss a small lung cancer. Contact your primary care provider if you develop new symptoms like worsening shortness of breath, change in a cough, or coughing up blood. If you still smoke cigarettes, we can help you quit. We understand that quitting cigarette smoking is difficult, but it is the best way to improve your health. When you want help, let your primary care provider know. You can also call 5-983-LHQQ-VET ( ) or visit [employer]smokefree.gov. Please contact us with questions or concerns about lung cancer screening. Sincerely, Luigi JETER, RN, OCN Lung Cancer Screening Nurse Enclosures: brochure entitled, Small Lung Nodules: What You Need to Know /natalie/ LUIGI JETER,RN,OCN LUNG CANCER SCREENING NURSE NAVIGATOR Signed: 05/12/2023 13:57 LUIGI GOMEZ [facility] [place] [facility] May 12, 2023 01:17 PM PREVENTIVE MEDICINE RISK ASSESSMENT SCREENING NOTE: LOCAL TITLE: LUNG CANCER SCREENING DOCUMENTATION STANDARD TITLE: PREVENTIVE MEDICINE RISK ASSESSMENT SCREENING NO DATE OF NOTE: MAY 12, 2023@13:17 ENTRY DATE: MAY 12, 2023@13:17:34 AUTHOR: LUIGI GOMEZ COSIGNER: URGENCY: STATUS: COMPLETED FOLLOW-UP TRACKING/SURVEILLANCE of lung nodule that already had initial nodule documentation. Date of most recent follow-up image: Date: May 12, 2023 Follow up LDCT results: Lung Rads 2 Highest risk nodule description: Index Nodule: The previously newly present and right lower lobe solid, well-circumscribed 6.7 mm pulmonary nodule now measures 4.9 mm in greatest dimension, 8-333. Other Nodules: None. INCIDENTAL FINDINGS WILL BE MANAGED DEEMED CLINICALLY APPROPRIATE BY PCP The following incidental findings were noted: Other abdominal abnormalities: Specify: Liver mass/cyst, kidney mass/cyst Upper abdomen: Simple cyst again seen in the right lobe of the liver. Partially visualized simple cysts in the right kidney. Other: 1.)Emphysema: Moderate centrilobular and paraseptal emphysematous changes with associated scattered parenchymal scarring is unchanged. 2.)Visualized coronary artery calcifications: Atherosclerotic changes of the aorta and coronary arteries. 3.)Healed left 11th lateral rib fracture. I am notifying the Primary Care Provider for information, and for follow-up of incidental findings, if indicated. Comment: Dr. Cruz and PACT team via second signer in CPRS Plan: Interval until next LDCT scan is due: 12 months Comment: Index nodule in the RLL previously measuring 6.7mm has decreased in size, now measuring 4.9mm with recommendation to return to annual screening. Patient Notification of results: Results letter sent to patient. Comment: Results letter and educational materials mailed to address on file. Patient contacted by telephone. Comment: Call placed to the . Results of 3 month LCS LDCT reviewed, specifically the RLL index nodule. Discussed the decreased size of the nodule. Education provided. understands that the recommendation now is to return to annual interval imaging with LDCT. Importance of and rationale for continued surveillance with LDCT at an annual interval discussed. verbalized good understanding and agreement with this plan. [place] expressed appreciation for the time spent and education provided. /natalie/ LUIGI GOMEZ BSN,RN,OCN LUNG CANCER SCREENING NURSE NAVIGATOR Signed: 05/12/2023 13:54 Receipt Acknowledged By: 05/12/2023 14:39 /es/ VIRA CRUZ MD STAFF PHYSICIAN 05/12/2023 14:43 /es/ LIZETH ANDRES REGISTERED NURSE LUIGI GOMEZ [facility]
--- OUTSIDE RECORDS SUMMARY | 2024-02-13 13:02 | XMS_ITS | Encounter Summary ---
Author Name [facility] [place] Address [address] [place] [address] Care Team Providers Care Lifestyle Block Farmer Name Role Phone PRINCESS RAMON Primary Care [...] PART A Jul 15, 2013 PART A [id number] BRAD CUENCA JR PATIENT MEDICARE (WNR) MEDICARE (M) PART B Jul 15, 2013 PART B [id number] BRAD CUENCA JR PATIENT Selected Encounter This section includes the information on record at [place] for the Encounter. Date/Time Encounter Type Encounter Description Reason Pro vider Source Apr 06, 2023 12:00 AM Outpatient Encounter COMMUNITY CARE CONSULT IHE Encounter Template Text not used by [facility] Plan of Treatment: Future Appointments (+ 6 [...] [place] treatment facilities. Appointment Date/Time Appointment Type Appointme nt Facility Name May 12, 2023 09:30 AM AMBULATORY - NONE [place] [facility] [place] [facility] May 12, 2023 11:30 AM AMBULATORY - MEDICINE [place] [facility] [place] [facility] Social History: Smoking Status (Most current) and Tobacco Use (All prior to encounter date) This section includes the most current, and the historical, smoking and tobacco- related health factors from the [place] facility where the Encounter took place. Current Smoking Status This section includes the most current smoking, or tobacco-related health factor, from the [place] facility where the Encounter took place. Date/Time Current Smoking Status Comment Facil it Jan 12, 2023 09:00 AM VA-TOBACCO USER EVERY DAY [place] [facility] Tobacco Use History This section includes a history of the smoking, or tobacco-related health factors, that were collected on or before the date of the Encounter. The data comes from the [place] facility where the Encounter took place. Date/Time Smoking Status/Tobac co Use Comment Facility Jan 12, 2023 09:00 AM VA-TOBACCO USE 30 YEARS OR MORE [facility] [place] [facility] Jan 12, 2023 09:00 AM VA-TOBACCO USE ADVICE [facility] [place] [facility] Jan 12, 2023 09:00 AM VA-TOBACCO USE CLINICAL RECRUITER NO [facility] [place] [facility] Jan 12, 2023 09:00 AM VA-TOBACCO USE MED NO [facility] [place] [facility] Jan 12, 2023 09:00 AM VA-TOBACCO USER EVERY DAY [facility] [place] [facility] Oct 23, 2021 08:00 AM VA-TOBACCO DOESNT USE WI 30 MIN WAKEUP [facility] [place] [facility] Oct 23, 2021 08:00 AM VA-TOBACCO USE 30 YEARS OR MORE [facility] [place] [facility] Oct 23, 2021 08:00 AM VA-TOBACCO USE ADVICE [facility] [place] [facility] Oct 23, 2021 08:00 AM VA-TOBACCO USE CLINICAL RECRUITER NO [facility] [place] [facility] Oct 23, 2021 08:00 AM VA-TOBACCO USE MED NO [facility] [place] [facility] Oct 23, 2021 08:00 AM VA-TOBACCO USER EVERY DAY [facility] [place] [facility] Oct 29, 2020 10:00 AM VA-TOBACCO DOESNT USE WI 30 MIN WAKEUP [place] [facility] [place] [facility] Oct 29, 2020 10:00 AM VA-TOBACCO USE 30 YEARS OR MORE [facility] [place] [facility] Oct 29, 2020 10:00 AM VA-TOBACCO USE ADVICE [place] [facility] [place] [facility] Oct 29, 2020 10:00 AM VA-TOBACCO USE CLINICAL RECRUITER YES [place] [facility] [place] [facility] Oct 29, 2020 10:00 AM VA-TOBACCO USE MED NOTIFY PROVIDER [facility] [place] [facility] Oct 29, 2020 10:00 AM VA-TOBACCO USER EVERY DAY [facility] [place] [facility] Oct 10, 2019 11:00 AM VA-TOBACCO FORMER USER [place] [facility] [place] [facility] Oct 10, 2019 11:00 AM VA-TOBACCO QUIT < 1 YEAR [facility] [place] [facility] Oct 26, 2018 07:55 AM VA-TOBACCO USE > 15 LESS THAN 30 YEARS [place] [facility] [place] [facility] Oct 26, 2018 07:55 AM VA-TOBACCO USE ADVICE [place] [facility] [place] [facility] Oct 26, 2018 07:55 AM VA-TOBACCO USE CLINICAL RECRUITER NO [place] [facility] [place] [facility] Oct 26, 2018 07:55 AM VA-TOBACCO USE MED NO [place] [facility] [place] [facility] Oct 26, 2018 07:55 AM VA-TOBACCO USE WI 30 MIN OF WAKEUP [place] [facility] [place] [facility] Oct 26, 2018 07:55 AM VA-TOBACCO USER EVERY DAY [place] [facility] [place] [facility] Aug 04, 2017 08:53 AM CURRENT SMOKER [place] [facility] [place] [facility] Aug 04, 2017 08:53 AM V1-PT DECLINES REF TO TOBACCO CESS PRGM [facility] [place] [facility] Aug 04, 2017 08:53 AM V1-PT DECLINES TOBACCO CESSATION MEDS [facility] [place] [facility] Aug 04, 2017 08:53 AM V1-PT THINKING ABOUT QUIT TOBACCO USE [facility] [place] [facility] Jan 31, 2017 09:51 AM QUIT TOBACCO USE IN PAST YEAR 31 days [facility] [place] [facility] Jan 26, 2016 08:36 AM CURRENT SMOKER [facility] [place] [facility] Jan 26, 2016 08:36 AM V1-PT DECLINES REF TO TOBACCO CESS PRGM [facility] [place] [facility] Jan 26, 2016 08:36 AM V1-PT DECLINES TOBACCO CESSATION MEDS [facility] [place] [facility] Jan 26, 2016 08:36 AM V1-PT THINKING ABOUT QUIT TOBACCO USE [facility] [place] [facility] Feb 20, 2015 10:25 AM QUIT TOBACCO USE [facility]ST [facility] [place] [facility] June 17, 2014 07:37 AM CURRENT SMOKER Reports being an off and on smoker -cigarettes [facility] [place] [facility] June 17, 2014 07:37 AM V1-PT DECLINES REF TO TOBACCO CESS PR[facility] [place] [facility] June 17, 2014 07:37 AM V1-PT DECLINES TOBACCO CESSATION MEDS [facility] [place] [facility] June 17, 2014 07:37 AM V1-PT THINKING ABOUT QUIT TOBACCO USE [facility] [place] [facility] Sep 14, 2011 09:51 AM CURRENT SMOKER less than a pack a day [facility] [place] [facility] Sep 14, 2011 09:51 AM V1-PT DECLINES REF TO TOBACCO CESS PRGM [facility] [place] [facility] Sep 14, 2011 09:51 AM V1-PT DECLINES TOBACCO CESSATION MEDS [place] [facility] [place] [facility] Sep 14, 2011 09:51 AM V1-PT THINKING ABOUT QUIT TOBACCO USE [facility] [place] [facility] Mar 09, 2010 09:32 AM CURRENT SMOKER 1 ppd [facility] [place] [facility] Mar 09, 2010 09:32 AM V1-PT DECLINES TOBACCO CESSATION MEDS [facility] Mar 09, 2010 09:32 AM V1-PT REF TO NON-VA TOBACCO CESS [facility] Mar 09, 2010 09:32 AM V1-PT THINKING ABOUT QUIT TOBACCO USE [facility] Sep 29, 2009 02:07 PM V1-PT DECLINES REF TO TOBACCO CESS [facility] Sep 29, 2009 02:07 PM V1-PT DECLINES TOBACCO CESSATION MEDS [facility] Sep 29, 2009 02:07 PM V1-PT NOT INTERESTED IN QUIT TOBACCO USE [facility] Jan 29, 2009 11:00 AM CURRENT SMOKER 1 ppd [facility] Jan 29, 2009 11:00 AM V1-PT DECLINES TOBACCO CESSATION MEDS [facility] Jan 29, 2009 11:00 AM V1-PT READY TO QUIT TOBACCO USE [facility] Mar 17, 2005 08:36 AM CURRENT SMOKER [facility] Advance Directives: All historical and current Section Date Range: From patient's date of to the date document was created. This section includes ALL of a patient's completed or amended [place] Advance and Rescinded Directives. The entries below indicate that a directive exists for the patient, but an actual copy is not included with this document. The data comes from all [place] facilities. Date Advance Directives Provider Source Nov 11, 2023 ADVANCE DIRECTIVE JACOB DEL TORO [facility] Encounter Notes: All associated encounter notes This section contains the clinical notes associated to the Encounter. Date/Time Encounter Note(s) Provider Source Apr 06, 2023 12:00 AM NONVA CONSULT: LOCAL TITLE: COMMUNITY CARE-CONSULT RESULT NOTE STANDARD TITLE: NONVA CONSULT DATE OF NOTE: APR 06, 2023 ENTRY DATE: APR 25, 2023@09:19:23 AUTHOR: KENTON VARGAS EXP COSIGNER: URGENCY: STATUS: COMPLETED VistA Imaging - Scanned Document SCANNED DOCUMENT SIGNATURE NOT REQUIRED Electronically Filed: 04/25/2023 by: KENTON VARGAS ELECTROENCEPHALOGRAM TECHNOLOGIST KENTON VARGAS [facility]
--- OUTSIDE RECORDS SUMMARY | 2024-02-13 13:02 | XMS_ITS ---
Author Name [facility] [place] Address [address] [place] [address] Care Team Providers Care Dispensing Audiologist Name Role Phone PRINCESS RAMON Primary Care [...] PART B Jul 15, 2013 PART B [id number] [facility] BRAD CUENCA JR PATIENT MEDICARE (WNR) MEDICARE (M) PART A Jul 15, 2013 PART A [id number] BRAD CUENCA JR PATIENT Selected Encounter This section includes the information on record at [place] for the Encounter. Date/Time Encounter Type Encounter Description Reason Pro vider Source Mar 23, 2023 09:49 AM Outpatient Encounter ADMIN PAT ACTIVTIES (MASNONCT) IHE Encounter Template Text not used by [place] Plan of Treatment: Future Appointments (+ 6 [...] 20 appointments. The data comes from all [place] treatment facilities. Appointment Date/Time Appointment Type Appointme nt Facility Name Apr 06, 2023 09:45 AM AMBULATORY - MEDICINE [place] [facility] [place] [facility] May 12, 2023 09:30 AM AMBULATORY - NONE [facility] [place] [facility] May 12, 2023 11:30 AM AMBULATORY - MEDICINE [place] [facility] [facility] Social History: Smoking Status (Most current) and Tobacco Use (All prior to encounter date) This section includes the most current, and the historical, smoking and tobacco- related health factors from the [place] facility where the Encounter took place. Current Smoking Status This section includes the most current smoking, or tobacco-related health factor, from the [place] facility where the Encounter took place. Date/Time Current Smoking Status Comment [facility] Jan 12, 2023 09:00 AM VA-TOBACCO USER EVERY DAY [place] [facility] Tobacco Use History This section includes a history of the smoking, or tobacco-related health factors, that were collected on or before the date of the Encounter. The data comes from the [place] facility where the Encounter took place. 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 [facility] [place] [facility] Jan 12, 2023 09:00 AM VA-TOBACCO USE MED NO [place] [facility] [place] [facility] Jan 12, 2023 09:00 AM VA-TOBACCO USER EVERY DAY [facility] [place] [facility] Oct 23, 2021 08:00 AM VA-TOBACCO DOESNT USE WI 30 MIN WAKEUP [place] [facility] [place] [facility] Oct 23, 2021 08:00 AM VA-TOBACCO USE 30 YEARS OR MORE [place] [facility] [place] [facility] Oct 23, 2021 08:00 AM VA-TOBACCO USE ADVICE [facility] [place] [facility] Oct 23, 2021 08:00 AM 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 [facility] [place] [facility] Oct 23, 2021 08:00 AM VA-TOBACCO USE MED NO [facility] [place] [facility] Oct 23, 2021 08:00 AM VA-TOBACCO USER EVERY DAY [facility] [place] [facility] Oct 29, 2020 10:00 AM VA-TOBACCO DOESNT USE WI 30 MIN WAKEUP [facility] [place] [facility] Oct 29, 2020 10:00 AM VA-TOBACCO USE 30 YEARS OR MORE [facility] [place] [facility] Oct 29, 2020 10:00 AM VA-TOBACCO USE ADVICE [facility] [place] [facility] Oct 29, 2020 10:00 AM 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 [employer] YES [place] [facility] [place] [facility] Oct 29, 2020 10:00 AM VA-TOBACCO USE MED NOTIFY PROVIDER [place] [facility] [place] [facility] Oct 29, 2020 10:00 AM VA-TOBACCO USER EVERY DAY [place] [facility] [place] [facility] Oct 10, 2019 11:00 AM VA-TOBACCO FORMER USER [facility] [place] [facility] Oct 10, 2019 11:00 AM VA-TOBACCO QUIT < 1 YEAR [facility] [place] [facility] Oct 26, 2018 07:55 AM VA-TOBACCO USE > 15 LESS THAN 30 YEARS [facility] [place] [facility] Oct 26, 2018 07:55 AM VA-TOBACCO USE ADVICE [facility] [place] [facility] Oct 26, 2018 07:55 AM 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 [facility] [place] [facility] Oct 26, 2018 07:55 AM VA-TOBACCO USE MED NO [facility] [place] [facility] Oct 26, 2018 07:55 AM VA-TOBACCO USE WI 30 MIN OF WAKEUP [place] [facility] [place] [facility] Oct 26, 2018 07:55 AM VA-TOBACCO USER EVERY DAY [facility] [place] [facility] Aug 04, 2017 08:53 AM CURRENT SMOKER [facility] [place] [facility] Aug 04, 2017 08:53 AM V1-PT DECLINES REF TO TOBACCO CESS PRGM [facility] [place] [facility] Aug 04, 2017 08:53 AM V1-PT DECLINES TOBACCO CESSATION MEDS [facility] [place] [facility] Aug 04, 2017 08:53 AM V1-PT THINKING ABOUT QUIT TOBACCO USE [facility] [place] [facility] Jan 31, 2017 09:51 AM QUIT TOBACCO USE IN PAST YEAR 31 days [facility] [place] [facility] Jan 26, 2016 08:36 AM CURRENT SMOKER [facility] [place] [facility] Jan 26, 2016 08:36 AM V1-PT DECLINES REF TO TOBACCO CESS PRGM [facility] [place] [facility] Jan 26, 2016 08:36 AM V1-PT DECLINES TOBACCO [facility]ESSATION [facility] [place] [facility] Jan 26, 2016 08:36 AM V1-PT THINKING ABOUT QUIT TOBACCO USE [facility] [place] [facility] Feb 20, 2015 10:25 AM QUIT TOBACCO USE IN PAST YEAR [facility] [place] [facility] June 17, 2014 07:37 AM CURRENT SMOKER Reports being an off and on smoker -cigarettes [facility] [place] [facility] June 17, 2014 07:37 AM V1-PT DECLINES REF TO TOBACCO CESS [facility] [place] [facility] June 17, 2014 07:37 AM V1-PT DECLINES TOBACCO CESSATION MEDS [facility] [place] [facility] June 17, 2014 07:37 AM V1-PT THINKING ABOUT QUIT TOBACCO USE [facility] [place] [facility] Sep 14, 2011 09:51 AM CURRENT SMOKER less than a pack a day [facility] [place] [facility] Sep 14, 2011 09:51 AM V1-PT DECLINES REF TO TOBACCO CESS PRGM [facility] [place] [facility] Sep 14, 2011 09:51 AM V1-PT DECLINES TOBACCO CESSATION MEDS [facility] Sep 14, 2011 09:51 AM V1-PT THINKING ABOUT QUIT TOBACCO USE [facility] [place] [facility] Mar 09, 2010 09:32 AM CURRENT SMOKER 1 ppd [facility] Mar 09, 2010 09:32 AM V1-PT DECLINES TOBACCO CESSATION [facility] Mar 09, 2010 09:32 AM V1-PT REF TO NON-VA TOBACCO CESS [facility] Mar 09, 2010 09:32 AM V1-PT THINKING ABOUT QUIT [facility]BACCO [facility] Sep 29, 2009 02:07 PM V1-PT DECLINES REF TO TOBACCO CESS [facility] Sep 29, 2009 02:07 PM V1-PT DECLINES TOBACCO CESSATION MEDS [facility] Sep 29, 2009 02:07 PM V1-PT NOT INTERESTED IN QUIT TOBACCO USE [facility] Jan 29, 2009 11:00 AM CURRENT SMOKER 1 ppd [facility] Jan 29, 2009 11:00 AM V1-PT DECLINES TOBACCO CESSATION MEDS [facility] Jan 29, 2009 11:00 AM V1-PT READY TO QUIT TOBACCO USE [facility] Mar 17, 2005 08:36 AM CURRENT SMOKER [facility] Advance Directives: All historical and current Section Date Range: From patient's date of to the date document was created. This section includes ALL of a patient's completed or amended [place] Advance and Rescinded Directives. The entries below indicate that a directive exists for the patient, but an actual copy is not included with this document. The data comes from all [place] facilities. Date Advance Directives Provider Source Nov 11, 2023 ADVANCE DIRECTIVE JACOB DEL [facility] [place] [facility] Encounter Notes: All associated encounter notes This section contains the clinical notes associated to the Encounter. Date/Time Encounter Note(s) Provider Source Mar 23, 2023 09:49 AM ADMINISTRATIVE NOT E: LOCAL TITLE: CCC: SCHEDULING ADMINISTRATION STANDARD TITLE: ADMINISTRATIVE NOTE DATE OF NOTE: MAR 23, 2023@09:49:47 ENTRY DATE: MAR 23, 2023@09:49:47 AUTHOR: FAY,JOCELYNE A EXP COSIGNER: URGENCY: STATUS: COMPLETED CCC: SCHEDULING ADMINISTRATION Has ADDENDA Patient Demographics Patient Name: BRAD CUENCA Patient Primary Phone: [phone] Patient Primary Address: [address] [place] [id number] Patient : 1950 Patient Age: 72 Current Location: [facility] Call Back Number: [phone] Caller/Recipient Relation to Patient: Other If Other Describe Relation to Patient: KARNACK Caller Name: LUPE Castro Administrative Administrative Note Reason: Returned Call Administrative Note Comments: Lupe Castro of [facility] returned PACT RN call and is requesting a call back at earliest convenience to [phone] /natalie/ JOCELYNE BOWLING [facility] MSA Signed: 03/23/2023 09:49 Receipt Acknowledged By: 03/23/2023 10:02 /natalie/ LIZETH ANDRES REGISTERED NURSE 03/23/2023 ADDENDUM STATUS: COMPLETED Spoke with Lupe and requested order form be sent for addendum 03/22/23 /avani ANDRES REGISTERED NURSE Signed: 03/23/2023 10:02 JOCELYNE FAY [place] [facility]
--- OUTSIDE RECORDS SUMMARY | 2024-02-13 13:02 | XMS_ITS | Encounter Summary ---
Author Name [facility] [place] Address [address] [place] [address] Care Team Providers Care Senior Automation Engineer Name Role Phone PRINCESS RAMON Primary Care [...] PART A Jul 15, 2013 PART A [id number] BRAD CUENCA JR PATIENT MEDICARE (WNR) MEDICARE (M) PART B Jul 15, 2013 PART B [id number] BRAD CUENCA JR PATIENT Selected Encounter This section includes the information on record at [place] for the Encounter. Date/Time Encounter Type Encounter Description Reason Pro vider Source Mar 17, 2023 12:00 AM Outpatient Encounter EVENT (HISTORICAL) IHE Encounter Template Text not used by [place] Plan of Treatment: Future Appointments (+ 6 [...] 20 appointments. The data comes from all [place] treatment facilities. Appointment Date/Time Appointment Type Appointme nt Facility Name Apr 06, 2023 09:45 AM AMBULATORY - [place]ICINE [place] [facility] [place] [facility] May 12, 2023 09:30 AM AMBULATORY - NONE [place] [facility] [place] [facility] May 12, 2023 11:30 AM [facility] [place] [facility] [place] [facility] Social History: Smoking Status (Most current) and Tobacco Use (All prior to encounter date) This section includes the most current, and the historical, smoking and tobacco- related health factors from the [place] facility where the Encounter took place. Current Smoking Status This section includes the most current smoking, or tobacco-related health factor, from the [place] facility where the Encounter took place. Date/Time Current Smoking Status Comment [facility] it Jan 12, 2023 09:00 AM VA-TOBACCO USER EVERY DAY [place] [facility] Tobacco Use History This section includes a history of the smoking, or tobacco-related health factors, that were collected on or before the date of the Encounter. The data comes from the [place] facility where the Encounter took place. Date/Time Smoking Status/Tobac co Use Comment Facility Jan 12, 2023 09:00 AM VA-TOBACCO USE 30 YEARS OR MORE [facility] [place] [facility] Jan 12, 2023 09:00 AM VA-TOBACCO USE ADVICE [place] [facility] [place] [facility] Jan 12, 2023 09:00 AM VA-TOBACCO USE COMMERCIAL CRABBER NO [facility] [place] [facility] Jan 12, 2023 09:00 AM VA-TOBACCO USE MED NO [place] [facility] [place] [facility] Jan 12, 2023 09:00 AM VA-TOBACCO USER EVERY DAY [facility] [place] [facility] Oct 23, 2021 08:00 AM VA-TOBACCO DOESNT USE WI 30 MIN WAKEUP [place] [facility] [place] [facility] Oct 23, 2021 08:00 AM VA-TOBACCO USE 30 YEARS OR MORE [facility] [place] [facility] Oct 23, 2021 08:00 AM VA-TOBACCO USE ADVICE [facility] [place] [facility] Oct 23, 2021 08:00 AM VA-TOBACCO USE COMMERCIAL CRABBER NO [facility] [place] [facility] Oct 23, 2021 08:00 AM VA-TOBACCO USE MED NO [facility] [place] [facility] Oct 23, 2021 08:00 AM VA-TOBACCO USER EVERY DAY [facility] [place] [facility] Oct 29, 2020 10:00 AM VA-TOBACCO DOESNT USE WI 30 MIN WAKEUP [facility] [place] [facility] Oct 29, 2020 10:00 AM VA-TOBACCO USE 30 YEARS OR MORE [facility] [place] [facility] Oct 29, 2020 10:00 AM VA-TOBACCO USE ADVICE [facility] [place] [facility] Oct 29, 2020 10:00 AM VA-TOBACCO USE COMMERCIAL CRABBER YES [place] [facility] [place] [facility] Oct 29, 2020 10:00 AM VA-TOBACCO USE MED NOTIFY PROVIDER [place] [facility] [place] [facility] Oct 29, 2020 10:00 AM VA-TOBACCO USER EVERY DAY [place] [facility] [place] [facility] Oct 10, 2019 11:00 AM VA-TOBACCO FORMER USER [facility] [place] [facility] Oct 10, 2019 11:00 AM VA-TOBACCO QUIT < 1 YEAR [place] [facility] [place] [facility] Oct 26, 2018 07:55 AM VA-TOBACCO USE > 15 LESS THAN 30 YEARS [facility] [place] [facility] Oct 26, 2018 07:55 AM VA-TOBACCO USE ADVICE [facility] [place] [facility] Oct 26, 2018 07:55 AM VA-TOBACCO USE COMMERCIAL CRABBER NO [place] [facility] [place] [facility] Oct 26, 2018 07:55 AM VA-TOBACCO USE MED NO [facility] [place] [facility] Oct 26, 2018 07:55 AM VA-TOBACCO USE WI 30 MIN OF WAKEUP [place] [facility] [place] [facility] Oct 26, 2018 07:55 AM VA-TOBACCO USER EVERY DAY [place] [facility] [place] [facility] Aug 04, 2017 08:53 AM CURRENT SMOKER [facility] [place] [facility] Aug 04, 2017 08:53 AM V1-PT DECLINES REF TO TOBACCO CESS PRGM [facility] [place] [facility] Aug 04, 2017 08:53 AM V1-PT DECLINES TOBACCO CESSATION MEDS [facility] [place] [facility] Aug 04, 2017 08:53 AM V1-PT THINKING ABOUT QUIT TOBACCO USE [facility] [place] [facility] Jan 31, 2017 09:51 AM QUIT TOBACCO USE IN PAST YEAR 31 days [facility] [place] [facility] Jan 26, 2016 08:36 AM CURRENT SMOKER [facility] [place] [facility] Jan 26, 2016 08:36 AM V1-PT DECLINES REF TO TOBACCO CESS PRGM [facility] [place] [facility] Jan 26, 2016 08:36 AM V1-PT DECLINES TOBACCO CESSATION MEDS [facility] Jan 26, 2016 08:36 AM V1-PT THINKING ABOUT QUIT TOBACCO USE [facility] [place] [facility] Feb 20, 2015 10:25 AM QUIT TOBACCO USE IN PAST YEAR [facility] [place] [facility] June 17, 2014 07:37 AM CURRENT SMOKER Reports being an off and on smoker -cigarettes [facility] [place] [facility] June 17, 2014 07:37 AM V1-PT DECLINES REF TO TOBACCO CESS PRGM [facility] [place] [facility] June 17, 2014 07:37 AM V1-PT DECLINES TOBACCO CESSATION MEDS [facility] June 17, 2014 07:37 AM V1-PT THINKING ABOUT QUIT TOBACCO USE [facility] [place] [facility] Sep 14, 2011 09:51 AM CURRENT SMOKER less than a pack a day [facility] [place] [facility] Sep 14, 2011 09:51 AM V1-PT DECLINES REF TO TOBACCO CESS PRGM [facility] Sep 14, 2011 09:51 AM V1-PT DECLINES TOBACCO CESSATION MEDS [facility] Sep 14, 2011 09:51 AM V1-PT THINKING ABOUT QUIT TOBACCO USE [facility] [place] [facility] Mar 09, 2010 09:32 AM CURRENT SMOKER 1 ppd [facility] Mar 09, 2010 09:32 AM V1-PT DECLINES [facility]ACCO [facility] Mar 09, 2010 09:32 AM V1-PT REF TO NON-VA TOBACCO CESS [facility] Mar 09, 2010 09:32 AM V1-PT THINKING ABOUT QUIT TOBACCO USE [facility] Sep 29, 2009 02:07 PM V1-PT DECLINES REF TO TOBACCO CESS PRGM [facility] Sep 29, 2009 02:07 PM V1-PT DECLINES TOBACCO [facility]ESSATION MED[facility] Sep 29, 2009 02:07 PM V1-PT NOT INTERESTED IN QUIT TOBACCO USE [facility] Jan 29, 2009 11:00 AM CURRENT SMOKER 1 ppd [facility] Jan 29, 2009 11:00 AM V1-PT DECLINES TOBACCO CESSATION MEDS [facility] Jan 29, 2009 11:00 AM V1-PT READY TO QUIT TOBACCO USE [facility] Mar 17, 2005 08:36 AM CURRENT SMOKER [facility] Advance Directives: All historical and current Section Date Range: From patient's date of to the date document was created. This section includes ALL of a patient's completed or amended [place] Advance and Rescinded Directives. The entries below indicate that a directive exists for the patient, but an actual copy is not included with this document. The data comes from all [place] facilities. Date Advance Directives Provider Source Nov 11, 2023 ADVANCE DIRECTIVE JACOB DEL TORO [place] [facility] Encounter Notes: All associated encounter notes This section contains the clinical notes associated to the Encounter. Date/Time Encounter Note(s) Provider Source Mar 17, 2023 12:00 AM NONVA DIAGNOSTIC Franck [facility] REPORT: LOCAL TITLE: NON-VA DIAGNOSTICS STANDARD TITLE: NONVA DIAGNOSTIC STUDY REPORT DATE OF NOTE: MAR 17, 2023 ENTRY DATE: MAR 25, 2023@12:03:31 AUTHOR: ADIA KEITH EXP COSIGNER: URGENCY: STATUS: COMPLETED VistA Imaging - Scanned Document SCANNED DOCUMENT SIGNATURE NOT REQUIRED Electronically Filed: 03/25/2023 by: ADIA KEITH MOGUL OPERATOR ADIA KEITH [facility]
--- OUTSIDE RECORDS SUMMARY | 2024-02-13 13:02 | XMS_ITS ---
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 Date/Time Encounter Type Encounter Description Reason Pro vider Source Mar 22, 2023 09:33 AM Outpatient Encounter ADMIN PAT ACTIVTIES (MASNONCT) IHE Encounter Template Text not used by [place] Plan of Treatment: Future Appointments (+ 6 [...] AMBULATORY - MEDICINE [place] [facility] [facility] May 12, 2023 09:30 AM AMBULATORY - NONE [facility] [place] [facility] May 12, 2023 11:30 AM AMBULATORY - MEDICINE [place] [facility] [facility] Social History: Smoking Status (Most current) and Tobacco Use (All prior to encounter date) This section includes the most current, and the historical, smoking and tobacco- related health factors from the [place] facility where the Encounter took place. Current Smoking Status This section includes the most current smoking, or tobacco-related health factor, from the [place] facility where the Encounter took place. Date/Time Current Smoking Status Comment [facility] Jan 12, 2023 09:00 AM VA-TOBACCO USER EVERY DAY [place] [facility] Tobacco Use History This section includes a history of the smoking, or tobacco-related health factors, that were collected on or before the date of the Encounter. The data comes from the [place] facility where the Encounter took place. Date/Time Smoking Status/Tobac co Use Comment Facility Jan 12, 2023 09:00 AM VA-TOBACCO USE 30 YEARS OR MORE [place] [facility] [place] [facility] Jan 12, 2023 09:00 AM VA-TOBACCO USE ADVICE [place] [facility] [place] [facility] Jan 12, 2023 09:00 AM VA-TOBACCO USE LATHE SET UP PERSON NO [facility] [place] [facility] Jan 12, 2023 09:00 AM VA-TOBACCO USE MED NO [place] [facility] [place] [facility] Jan 12, 2023 09:00 AM VA-TOBACCO USER EVERY DAY [facility] [place] [facility] Oct 23, 2021 08:00 AM VA-TOBACCO DOESNT USE WI 30 MIN WAKEUP [place] [facility] [place] [facility] Oct 23, 2021 08:00 AM VA-TOBACCO USE 30 YEARS OR MORE [place] [facility] [place] [facility] Oct 23, 2021 08:00 AM VA-TOBACCO USE ADVICE [facility] [place] [facility] Oct 23, 2021 08:00 AM VA-TOBACCO USE LATHE SET UP PERSON NO [facility] [place] [facility] Oct 23, 2021 08:00 AM VA-TOBACCO USE MED NO [facility] [place] [facility] Oct 23, 2021 08:00 AM VA-TOBACCO USER EVERY DAY [facility] [place] [facility] Oct 29, 2020 10:00 AM VA-TOBACCO DOESNT USE WI 30 MIN WAKEUP [facility] [place] [facility] Oct 29, 2020 10:00 AM VA-TOBACCO USE 30 YEARS OR MORE [facility] [place] [facility] Oct 29, 2020 10:00 AM VA-TOBACCO USE ADVICE [facility] [place] [facility] Oct 29, 2020 10:00 AM VA-TOBACCO USE LATHE SET UP PERSON YES [place] [facility] [place] [facility] Oct 29, 2020 10:00 AM VA-TOBACCO USE MED NOTIFY PROVIDER [place] [facility] [place] [facility] Oct 29, 2020 10:00 AM VA-TOBACCO USER EVERY DAY [place] [facility] [place] [facility] Oct 10, 2019 11:00 AM VA-TOBACCO FORMER USER [facility] [place] [facility] Oct 10, 2019 11:00 AM VA-TOBACCO QUIT < 1 YEAR [facility] [place] [facility] Oct 26, 2018 07:55 AM VA-TOBACCO USE > 15 LESS THAN 30 YEARS [facility] [place] [facility] Oct 26, 2018 07:55 AM VA-TOBACCO USE ADVICE [facility] [place] [facility] Oct 26, 2018 07:55 AM VA-TOBACCO USE LATHE SET UP PERSON NO [facility] [place] [facility] Oct 26, 2018 07:55 AM VA-TOBACCO USE MED NO [facility] [place] [facility] Oct 26, 2018 07:55 AM VA-TOBACCO USE WI 30 MIN OF WAKEUP [place] [facility] [place] [facility] Oct 26, 2018 07:55 AM VA-TOBACCO USER EVERY DAY [facility] [place] [facility] Aug 04, 2017 08:53 AM CURRENT SMOKER [facility] [place] [facility] Aug 04, 2017 08:53 AM V1-PT DECLINES REF TO TOBACCO CESS PRGM [facility] [place] [facility] Aug 04, 2017 08:53 AM V1-PT DECLINES TOBACCO CESSATION MEDS [facility] [place] [facility] Aug 04, 2017 08:53 AM V1-PT THINKING ABOUT QUIT TOBACCO USE [facility] [place] [facility] Jan 31, 2017 09:51 AM QUIT TOBACCO USE IN PAST YEAR 31 days [facility] [place] [facility] Jan 26, 2016 08:36 AM CURRENT SMOKER [facility] [place] [facility] Jan 26, 2016 08:36 AM V1-PT DECLINES REF TO TOBACCO CESS PRGM [facility] [place] [facility] Jan 26, 2016 08:36 AM V1-PT DECLINES TOBACCO CESSATION MEDS [facility] [place] [facility] Jan 26, 2016 08:36 AM V1-PT THINKING ABOUT QUIT TOBACCO USE [facility] [place] [facility] Feb 20, 2015 10:25 AM QUIT TOBACCO USE IN PAST YEAR [facility] [place] [facility] June 17, 2014 07:37 AM CURRENT SMOKER Reports being an off and on smoker -cigarettes [facility] [place] [facility] June 17, 2014 07:37 AM V1-PT DECLINES REF TO TOBACCO CESS PRGM [facility] [place] [facility] June 17, 2014 07:37 AM V1-PT DECLINES TOBACCO CESSATION MEDS [facility] [place] [facility] June 17, 2014 07:37 AM V1-PT THINKING ABOUT QUIT TOBACCO USE [facility] [place] [facility] Sep 14, 2011 09:51 AM CURRENT SMOKER less than a pack a day [facility] [place] [facility] Sep 14, 2011 09:51 AM V1-PT DECLINES REF TO TOBACCO CESS PRGM [facility] [place] [facility] Sep 14, 2011 09:51 AM V1-PT DECLINES TOBACCO CESSATION MEDS [facility] Sep 14, 2011 09:51 AM V1-PT THINKING ABOUT QUIT TOBACCO USE [facility] [place] [facility] Mar 09, 2010 09:32 AM CURRENT SMOKER 1 ppd [facility] Mar 09, 2010 09:32 AM V1-PT DECLINES TOBACCO CESSATION MEDS [facility] Mar 09, 2010 09:32 AM V1-PT REF TO NON-VA TOBACCO CESS PRGM [facility] Mar 09, 2010 09:32 AM V1-PT THINKING ABOUT QUIT [facility] Sep 29, 2009 02:07 PM V1-PT DECLINES REF TO TOBACCO CESS PRGM [facility] Sep 29, 2009 02:07 PM V1-PT DECLINES TOBACCO CESSATION MEDS [facility] Sep 29, 2009 02:07 PM V1-PT NOT INTERESTED IN QUIT TOBACCO [facility] Jan 29, 2009 11:00 AM CURRENT SMOKER 1 ppd [facility] Jan 29, 2009 11:00 AM V1-PT DECLINES TOBACCO CESSATION MEDS [facility] Jan 29, 2009 11:00 AM V1-PT READY TO QUIT [facility]BACCO [facility] Mar 17, 2005 08:36 AM CURRENT SMOKER [facility] Advance Directives: All historical and current Section Date Range: From patient's date of to the date document was created. This section includes ALL of a patient's completed or amended [place] Advance and Rescinded Directives. The entries below indicate that a directive exists for the patient, but an actual copy is not included with this document. The data comes from all [place] facilities. Date Advance Directives Provider Source Nov 11, 2023 ADVANCE DIRECTIVE JACOB DEL TORO [place] C [facility] Encounter Notes: All associated encounter notes This section contains the clinical notes associated to the Encounter. Date/Time Encounter Note(s) Provider Source Mar 22, 2023 10:05 AM ADDENDUM: LOCAL TITLE: Addendum STANDARD TITLE: ADDENDUM DATE OF NOTE: MAR 22, 2023@10:05:27 ENTRY DATE: MAR 22, 2023@10:05:28 AUTHOR: PARK,YANN D EXP COSIGNER: URGENCY: STATUS: COMPLETED Pt states next draw at [facility] is in April. Please change order to 400ml due to feeling malaise after having 500ml drawn. /natalie/ YANN PARK Registered Nurse Signed: 03/22/2023 10:06 Receipt Acknowledged By: 03/22/2023 21:06 /natalie/ VIRA CRUZ MD STAFF PHYSICIAN === --- Original Document --- 03/22/23 CCC: SCHEDULING ADMINISTRATION: Patient Demographics Patient Name: BRAD CUENCA Patient Primary Phone: [phone] Patient Primary Address: [address] [place] [id number] Patient : 1950 Patient Age: 72 Caller/Recipient Relation to Patient: Self Administrative Administrative Note Comments: called to lower blood draw from 500 ml to 400ml, he can't do the 500ml if it can be changed at the lab. /natalie/ LIZETH FERMIN Signed: 03/22/2023 09:33 Receipt Acknowledged By: 03/22/2023 09:49 /avani PARK Registered Nurse 03/22/2023 11:22 /natalie/ LIZETH ANDRES REGISTERED NURSE YANN PARK [place] [facility] Mar 22, 2023 09:33 AM ADMINISTRATIVE NOTE: LOCAL TITLE: CCC: SCHEDULING ADMINISTRATION STANDARD TITLE: ADMINISTRATIVE NOTE DATE OF NOTE: MAR 22, 2023@09:33:23 ENTRY DATE: MAR 22, 2023@09:33:23 AUTHOR: LIZETH FERMIN EXP COSIGNER: URGENCY: STATUS: COMPLETED CCC: SCHEDULING ADMINISTRATION Has ADDENDA Patient Demographics Patient Name: BRAD CUENCA Patient Primary Phone: [phone] Patient Primary Address: [address] [place] [phone] Patient : 1950 Patient Age: 72 Caller/Recipient Relation to Patient: Self Administrative Administrative Note Comments: called to lower blood draw from 500 ml to 400ml, he can't do the 500ml if it can be changed at the lab. /natalie/ LIZETH FERMIN Signed: 03/22/2023 09:33 Receipt Acknowledged By: 03/22/2023 09:49 /natalie/ YANN PARK Registered Nurse 03/22/2023 11:22 /natalie/ LIZETH ANDRES REGISTERED NURSE 03/22/2023 ADDENDUM STATUS: COMPLETED Pt states next draw at [facility] is in April. Please change order to 400ml due to feeling malaise after having 500ml drawn. /natalie/ YANN PARK Registered Nurse Signed: 03/22/2023 10:06 Receipt Acknowledged By: 03/22/2023 21:06 /natalie/ VIRA CRUZ MD STAFF PHYSICIAN 03/23/2023 ADDENDUM STATUS: COMPLETED Left voicemail to return call to clinic /natalie/ LIZETH ANDRES REGISTERED NURSE Signed: 03/23/2023 09:09 LIZETH FERMIN [facility]
--- OUTSIDE RECORDS SUMMARY | 2024-02-13 13:02 | XMS_ITS ---
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 Date/Time Encounter Type Encounter Description Reason Provider Source May 12, 2023 11:30 AM OFFICE O/P EST MOD 30 MIN PRIMARY CARE/MEDICINE ICD-10-CM J43.2 Centrilobular emphysema BA CRUZ IHE Encounter Template Text not used by MD Assessments - Encounter Diagnoses This section includes the primary and secondary diagnoses documented for the Encounter. Date/Time Primary/Secondary Diagnosis Diagnosis Name Provider Source May 12, 2023 12:02 PM PRIMARY Centrilobular emphysema BA CRUZ [facility]ED [facility] May 12, 2023 12:02 PM SECONDARY Benign prostatic hyperplasia without lower urinry tract symp BA CRUZ JAWED [facility] [place] [facility] May 12, 2023 12:02 PM SECONDARY Nicotine dependence, unsp, w oth nicotine-induced disorders BA CRUZ [facility]AWED [facility] [place] [facility] May 12, 2023 12:02 PM SECONDARY Other hemochromatosis BA CRUZ JAWED [facility] [place] [facility] May 12, 2023 12:02 PM SECONDARY Other male erectile dysfunction BA CRUZ JAWED [facility] [place] [facility] May 12, 2023 12:02 PM SECONDARY Other obesity BA CRUZ JAWED [facility] [place] [facility] Plan of Treatment: Future Appointments (+ 6 months) and Future Tests (+/- 45 days) The Plan of Treatment section includes future care activities for the [facility] This section includes future appointments and future orders which are active, pending or scheduled. Future Appointments This section includes appointments that were scheduled to occur 6 months from the date of the Encounter, up to a maximum of 20 appointments. The data comes from all MD treatment facilities. Appointment Date/Time Appointment Type Appointme nt Facility Name Nov 11, 2023 09:00 AM AMBULATORY - MEDICINE [facility] [place] [facility] Vital Signs: All taken on the encounter date This section contains inpatient and outpatient Vital Signs collected on the date of the Encounter. Date/Time Temperature Pulse Blood Pressure Respiratory Rate SP02 Pain Height Weight Body Mass Index Source May 12, 2023 11:42 AM 112/79 [facility] [place] [facility] May 12, 2023 11:17 AM 97.9 90 142/86 16 94 0 250 35 [facility] [place] [facility] Social History: Smoking Status (Most current) and Tobacco Use (All prior to encounter date) This section includes the most current, and the historical, smoking and tobacco- related health factors from the VA facility where the Encounter took place. Current Smoking Status This section includes the most current smoking, or tobacco-related health factor, from the MD facility where the Encounter took place. Date/Time Current Smoking Status Comment [facility] Jan 12, 2023 09:00 AM VA-TOBACCO USER EVERY DAY [facility] [place] [facility] Tobacco Use History This section includes a history of the smoking, or tobacco-related health factors, that were collected on or before the date of the Encounter. The data comes from the MD facility where the Encounter took place. Date/Time Smoking Status/Tobac co Use Comment Facility Jan 12, 2023 09:00 AM VA-TOBACCO USE 30 YEARS OR MORE [facility] [place] [facility] Jan 12, 2023 09:00 AM VA-TOBACCO USE ADVICE [facility] [place] [facility] Jan 12, 2023 09:00 AM VA-TOBACCO USE CONTRACT NEGOTIATION SPECIALIST NO [facility] [place] [facility] Jan 12, 2023 09:00 AM VA-TOBACCO USE MED NO [facility] [place] [facility] Jan 12, 2023 09:00 AM VA-TOBACCO USER EVERY DAY [facility] [place] [facility] Oct 23, 2021 08:00 AM VA-TOBACCO DOESNT USE WI 30 MIN WAKEUP [facility] [place] [facility] Oct 23, 2021 08:00 AM VA-TOBACCO USE 30 YEARS OR MORE [facility] [place] [facility] Oct 23, 2021 08:00 AM VA-TOBACCO USE ADVICE [facility] [place] [facility] Oct 23, 2021 08:00 AM VA-TOBACCO USE CONTRACT NEGOTIATION SPECIALIST NO [facility] [place] [facility] Oct 23, 2021 08:00 AM VA-TOBACCO USE MED NO [facility] [place] [facility] Oct 23, 2021 08:00 AM VA-TOBACCO USER EVERY DAY [facility] [place] [facility] Oct 29, 2020 10:00 AM VA-TOBACCO DOESNT USE WI 30 MIN WAKEUP [facility] [place] [facility] Oct 29, 2020 10:00 AM VA-TOBACCO USE 30 YEARS OR MORE [facility] [place] [facility] Oct 29, 2020 10:00 AM VA-TOBACCO USE ADVICE [facility] [place] [facility] Oct 29, 2020 10:00 AM VA-TOBACCO USE CONTRACT NEGOTIATION SPECIALIST YES [facility] [place] [facility] Oct 29, 2020 10:00 AM VA-TOBACCO USE MED NOTIFY PROVIDER [facility] [place] [facility] Oct 29, 2020 10:00 AM VA-TOBACCO USER EVERY DAY [facility] [place] [facility] Oct 10, 2019 11:00 AM VA-TOBACCO FORMER USER [facility] [place] [facility] Oct 10, 2019 11:00 AM VA-TOBACCO QUIT < 1 YEAR [facility] [place] [facility] Oct 26, 2018 07:55 AM VA-TOBACCO USE > 15 LESS THAN 30 YEARS [facility] [place] [facility] Oct 26, 2018 07:55 AM VA-TOBACCO USE ADVICE [facility] [place] [facility] Oct 26, 2018 07:55 AM VA-TOBACCO USE CONTRACT NEGOTIATION SPECIALIST NO [facility] [place] [facility] Oct 26, 2018 07:55 AM VA-TOBACCO USE MED NO [facility] [place] [facility] Oct 26, 2018 07:55 AM VA-TOBACCO USE WI 30 MIN OF WAKEUP [facility] [place] [facility] Oct 26, 2018 07:55 AM VA-TOBACCO USER EVERY DAY [facility] [place] [facility] Aug 04, 2017 08:53 AM CURRENT SMOKER [facility] [place] [facility] Aug 04, 2017 08:53 AM V1-PT DECLINES REF TO TOBACCO CESS PRGM [facility] [place] [facility] Aug 04, 2017 08:53 AM V1-PT DECLINES TOBACCO CESSATION MEDS [facility] [place] [facility] Aug 04, 2017 08:53 AM V1-PT THINKING ABOUT QUIT TOBACCO USE [facility] [place] [facility] Jan 31, 2017 09:51 AM QUIT TOBACCO USE IN PAST YEAR 31 days [facility] [place] [facility] Jan 26, 2016 08:36 AM CURRENT SMOKER [facility] [place] [facility] Jan 26, 2016 08:36 AM V1-PT DECLINES REF TO TOBACCO CESS PRGM [facility] [place] [facility] Jan 26, 2016 08:36 AM V1-PT DECLINES TOBACCO CESSATION MEDS [facility] [place] [facility] Jan 26, 2016 08:36 AM V1-PT THINKING ABOUT QUIT TOBACCO USE [facility] [place] [facility] Feb 20, 2015 10:25 AM QUIT TOBACCO USE IN PAST YEAR [facility] [place] [facility] June 17, 2014 07:37 AM CURRENT SMOKER Reports being an off and on smoker -cigarettes [facility] [place] [facility] June 17, 2014 07:37 AM V1-PT DECLINES REF TO TOBACCO CESS PRGM [facility] [place] [facility] June 17, 2014 07:37 AM V1-PT DECLINES TOBACCO CESSATION MEDS [facility] [place] [facility] June 17, 2014 07:37 AM V1-PT THINKING ABOUT QUIT [facility] [place] [facility] Sep 14, 2011 09:51 AM CURRENT SMOKER less than a pack a day [facility] [place] [facility] Sep 14, 2011 09:51 AM V1-PT DECLINES REF TO TOBACCO CESS PRGM [facility] [place] [facility] Sep 14, 2011 09:51 AM V1-PT DECLINES TOBACCO CESSATION MEDS [facility] [place] [facility] Sep 14, 2011 09:51 AM V1-PT THINKING ABOUT QUIT TOBACCO USE [facility] [place] [facility] Mar 09, 2010 09:32 AM CURRENT SMOKER 1 ppd [facility] [place] [facility] Mar 09, 2010 09:32 AM V1-PT DECLINES TOBACCO CESSATION MEDS [facility] [place] [facility] Mar 09, 2010 09:32 AM V1-PT REF TO NON-VA TOBACCO CESS PRGM [facility] [place] [facility] Mar 09, 2010 09:32 AM V1-PT THINKING ABOUT QUIT TOBACCO USE [facility] [place] [facility] Sep 29, 2009 02:07 PM V1-PT DECLINES REF TO TOBACCO CESS PRGM [facility] [place] [facility] Sep 29, 2009 02:07 PM V1-PT DECLINES TOBACCO CESSATION MEDS [facility] [place] [facility] Sep 29, 2009 02:07 PM V1-PT NOT INTERESTED IN QUIT TOBACCO USE [facility] Jan 29, 2009 11:00 AM CURRENT SMOKER 1 ppd [facility] Jan 29, 2009 11:00 AM V1-PT DECLINES TOBACCO CESSATION MEDS [facility] Jan 29, 2009 11:00 AM V1-PT READY TO QUIT TOBACCO USE [facility] Mar 17, 2005 08:36 AM CURRENT SMOKER [facility] Advance Directives: All historical and current Section Date Range: From patient's date of to the date document was created. This section includes ALL of a patient's completed or amended MD Advance and Rescinded Directives. The entries below indicate that a directive exists for the patient, but an actual copy is not included with this document. The data comes from all MD facilities. Date Advance Directives Provider Source Nov 11, 2023 ADVANCE DIRECTIVE [facility] Radiology Reports: +/- 30 days of [...] the Encounter. The data comes from all MD treatment facilities. Date/Time Radiology Report Provider Source May 12, 2023 09:31 AM LDCT LCS 1, 3 OR 6 MONTH FOLLOW UP: BRAD CUENCA [id number] -[id number] M Ex Date: MAY 12, 2023@09:31 Req Phys: VIRA CRUZ Pat Loc: [facility]/NO/LCS ADMIN (Req'g Loc) Img Loc: [place]/CT Service: Unknown (Case [id number] COMPLETE) LDCT LCS 1, 3 OR 6 MONTH FOLLOW U(CT Detailed) CPT:63148 Reason for Study: Lung Cancer Screening Clinical History: Short interval LDCT follow up. TPY 60 , currently smoking Comparison Scan: CT Chest 11/29/23: New 6.7 mm right lower lobe pulmonary nodule. CT Chest 12/24/21, Report Status: Verified Date Reported: MAY 12, 2023 Date Verified: MAY 12, 2023 Forest Fire Officer E-Sig:/ES/SHYAM BROWN JR Report: Study: LDCT LCS [...] reviewed. Secondary computer-aided detection with post-processing from [employer] is used. The lack of intravenous contrast [...] Primary Interpreting Staff: SHYAM BROWN JR, Radiologist (Forest Fire Officer) /SHYAM DAVILA JR [facility] Encounter Notes: All associated encounter notes This section contains the clinical notes associated to the Encounter. Date/Time Encounter Note(s) Provider Source May 12, 2023 12:00 PM PHYSICIAN NOTE: LOCAL TITLE: MD NOTE STANDARD TITLE: PHYSICIAN NOTE DATE OF NOTE: MAY 12, 2023@12:00 ENTRY DATE: MAY 12, 2023@12:00:36 AUTHOR: VIRA CRUZ EXP COSIGNER: URGENCY: STATUS: COMPLETED Patient Name: BRAD CUENCA VITALS: Patient temperature: 97.9 F [36.6 C] (05/12/2023 11:17) Blood pressure: 112/79 (05/12/2023 11:42) Patient height: 71 in [180.3 cm] (06/17/2014 07:32) Patient weight: 250 lb [113.40 kg] (05/12/2023 11:17) Patient BMI: BMI: 34.9 Patient pulse: 90 (05/12/2023 11:17) Patient respiration: 16 (05/12/2023 11:17) Patient Pulse Oximetry: 94% (05/12/2023 11:17) Pain Ratin (05/12/2023 11:17) Active [facility] Medications: Active Outpatient Medications (including Supplies): Active Outpatient Medications Status 1) ALBUTEROL 90MCG (CFC-F) 200D ORAL INHL INHALE 2 PUFFS ACTIVE BY MOUTH FOUR TIMES DAILY NEEDED FOR BREATHING 2) CARBOXYMETHYLCELLULOSE NA 0.5% OPH SOLN INSTILL 1 ACTIVE DROP INTO EACH EYE FOUR TIMES DAILY NEEDED FOR DRY EYE 3) FINASTERIDE 5MG TAB TAKE ONE TABLET BY MOUTH ONCE ACTIVE DAILY FOR PROSTATE 4) FLUTICAS 250/SALMETEROL 50 INHL DISK 60 INHALE 1 PUFF ACTIVE BY MOUTH TWICE DAILY FOR BREATHING - RINSE MOUTH AFTER USE 5) SILDENAFIL CITRATE 100MG TAB TAKE ONE TABLET BY MOUTH ACTIVE ONCE A WEEK TAKE 1 HOUR PRIOR TO SEXUAL ACTIVITY (NOTE NEW TABLET STRENGTH) TAKE AT LEAST 12 HOURS APART FROM TAMULOSIN 6) TAMSULOSIN HCL 0.4MG CAP TAKE ONE CAPSULE BY MOUTH AT ACTIVE BEDTIME 7) THEOPHYLLINE 400MG 24HR SA TAB TAKE ONE TABLET BY ACTIVE MOUTH ONCE DAILY 8) TIOTROPIUM 2.5MCG/ACTUAT 60D ORAL INHL INHALE 2 PUFFS ACTIVE BY MOUTH ONCE DAILY Remote Medications: No Active Remote Medications for this patient 72-year-old patient came today for routine 6-month follow-up. 1. Emphysema not smoking gets short of breath with exertion being followed by pulmonary in the community. 2. Lung cancer screening he has a low-dose CT scan today. 3. BPH has been on tamsulosin and finasteride symptoms have been under good control 4. History of hemochromatosis genetic test he was homozygous for hemochromatosis gene in 2009 and also has positive family history patient has been doing phlebotomies every months his last ferritin level was 205. He is going [facility] on a monthly basis. 5. Has been on sildenafil for erectile dysfunction. 6. Obesity and impaired fasting glucose discussed in detail he is considering intermittent fasting to lose weight. His target is to keep himself below 200. On examination: patient is alert and oriented X3 vitals are stable, He is in no apparent distress. CVS: regular rate and rhythm Lungs: clear to auscultation ABD: Benign EXT: no edema. A/P: 1. Emphysema being followed by pulmonary Was counseled to remain smoke-free Lung cancer screening CT chest was done today results pending BPH continue current medication Hemochromatosis phlebotomy every once a month Erectile dysfunction on sildenafil Obesity and impaired fasting glucose patient is planning to do intermittent fasting Follow-up in 6 months Medication Reconciliation: Outpatient: Has the patient been taking medications as documented in the EMLR? YES: The patient has been taking medications as documented in the EMLR. Essential Medication List for Review used to complete this medication reconciliation. INCLUDED IN THIS LIST: Alphabetical list of active outpatient prescriptions dispensed from this [facility] (local) and dispensed from another MD or [facility]D facility (remote) as well as [...] /natalie/ VIRA CRUZ MD STAFF PHYSICIAN Signed: 05/12/2023 12:02 VIRA CRUZ [facility] May 12, 2023 11:21 AM PREVENTIVE MEDICINE NURSING NOTE: LOCAL TITLE: CLINICAL REMINDERS/NURSING STANDARD TITLE: PREVENTIVE MEDICINE NURSING NOTE DATE OF NOTE: MAY 12, 2023@11:21 ENTRY DATE: MAY 12, 2023@11:21:46 AUTHOR: EVELIN DELGADO COSIGNER: URGENCY: STATUS: COMPLETED Homelessness/Food Insecurity Screen: In the past 2 months, have you been living in stable housing that you own, rent, or stay in as part of a household? Yes - Living in stable housing. Are you worried or concerned that in the next 2 months you may NOT have stable housing that you own, rent, or stay in as part of a household? No - Not worried about housing near future [facility] reports the following: Within the past 12 months, you worried whether your food would run out before you got money to buy more. Never true Within the past 12 months, the food you bought just didn't last and you didn't have money to get more. Never true /natalie/ EVELIN DELGADO LPN Signed: 05/12/2023 11:22 SEAN DELGADO [facility]
--- OUTSIDE RECORDS SUMMARY | 2024-02-13 13:03 | XMS_ITS | Encounter Summary ---
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 Date/Time Encounter Type Encounter Description Reason Pro vider Source Oct 28, 2023 04:09 PM Outpatient Encounter PRIMARY CARE/MEDICINE IHE Encounter Template Text not used by [place] Plan of Treatment: Future Appointments (+ 6 [...] 20 appointments. The data comes from all [facility]. Appointment Date/Time Appointment Type Appointme nt Facility Name Nov 11, 2023 09:00 AM AMBULATORY - MEDICINE [facility] [place] [facility] Nov 25, 2023 09:30 AM AMBULATORY MEDICINE [facility] Nov 29, 2023 09:00 AM AMBULATORY - MEDICINE [facility] [place] [facility] Feb 21, 2024 09:45 AM AMBULATORY - MEDICINE [facility] [place] [facility] Feb 27, 2024 10:00 AM AMBULATORY MEDICINE [facility] Mar 20, 2024 09:00 AM AMBULATORY MEDICINE [facility] Active, Pending, and Scheduled Orders This section includes a listing of several types of active, pending, and scheduled orders, including clinic medications orders, diagnostic test orders, procedure orders and consult orders; where the start date of the order is 45 days before the date of the Encounter or 45 days after the date of theEncounter. The data comes from all [facility]. Test Date/Time Test Type Test Details Facility Name Nov 11, 2023 12:03 PM Consult Order COMMUNITY CARE-UROLOGY Cons Corrosion Prevention Metal Sprayer's Choice [facility] Lab Results: +/- 30 days of the encounter This section includes the Chemistry and Hematology Lab Results on record with [place] for the patient. Radiology Reports and Pathology Reports are provided separately, in subsequent sections. Lab Results This section contains the Chemistry/Hematology Results that were resulted 30 days before or 30 daysafter the date of the Encounter. Date/Time Source Result Type Result - Unit Interpretation Reference Range Comment Nov 03, 2023 08:12 AM [facility] FERRITIN Specimen Type: SERUM No comment entered. Ordering Provider: PRINCESS RAMON Report Released Date/Time: Nov 01, 2023 12:47 PM Reporting Lab: [address] [address] Performing Lab: [address] [address] FERRITIN 144 ng/mL 20-300 Nov 03, 2023 08:12 AM [facility] IRON & TIBC PANEL Specimen Type: SERUM No comment entered. Ordering Provider: PRINCESS RAMON Report Released Date/Time: Nov 01, 2023 12:47 PM Reporting Lab: [address] [address] Performing Lab: [address] [address] TIBC 268 ug/dL 204-475 IRON 195 ug/dL H 40-160 Transferrin Saturation 72.8 H 20.0-50.0 Transferrin (TRF) 203 mg/dL 200-360 Nov 03, 2023 08:12 AM [facility] LIVER FUNCTION Specimen Type: SERUM No comment entered. Ordering Provider: PRINCESS RAMON Report Released Date/Time: Nov 01, 2023 12:47 PM Reporting Lab: [address] [address] Performing Lab: [address] [address] PROTEIN,TOTAL 6.4 g/dL 6.0-8.3 ALBUMIN 4.1 g/dL 3.5-5.0 ALKALINE PHOSPHATASE 75 U/L 40-150 AST 22 U/L 5-34 ALT 35 U/L BILIRUBIN, TOTAL 0.6 mg/dL 0.2-1.2 Nov 03, 2023 08:12 AM [facility] CBC Specimen Type: BLOOD No comment entered. Ordering Provider: PRINCESS RAMON Report Released Date/Time: Nov 01, 2023 12:47 PM Reporting Lab: [address] [address] Performing Lab: [address] [address] WBC 7.31 10*3/uL 4.50-11.00 RBC 5.14 10*6/uL 4.23-5.66 HGB 16.5 g/dL 12.8-17 HCT 49.0 39.2-50.4 MCV 95.3 fL 82-99 MCHC 33.7 g/dL 30.8-35.1 PLT 182 10*3/uL 140-360 RDW-CV 12.3 12.0-16.0 MCH 32.1 pg 26.2-32.6 Social History: Smoking Status (Most current) and Tobacco Use (All prior to encounter date) This section includes the most current, and the historical, smoking and tobacco- related health factors from the [place] facility where the Encounter took place. Current Smoking Status This section includes the most current smoking, or tobacco-related health factor, from the [place] facility where the Encounter took place. Date/Time Current Smoking Status Comment [facility] Jan 12, 2023 09:00 AM VA-TOBACCO USER EVERY DAY [place] [facility] Tobacco Use History This section includes a history of the smoking, or tobacco-related health factors, that were collected on or before the date of the Encounter. The data comes from the [place] facility where the Encounter took place. 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 [place] [facility] Jan 12, 2023 09:00 AM VA-TOBACCO USE MED NO [place] [facility] Jan 12, 2023 09:00 AM VA-TOBACCO USER EVERY DAY [place] [facility] Oct 23, 2021 08:00 AM VA-TOBACCO DOESNT USE [place] 30 MIN WAKEUP [place] [facility] Oct 23, 2021 08:00 AM VA-TOBACCO USE 30 YEARS OR MORE [place] [facility] Oct 23, 2021 08:00 AM VA-TOBACCO USE ADVICE [place] [facility] Oct 23, 2021 08:00 AM VA-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 USE 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 [place] [facility] Oct 23, 2021 08:00 AM VA-TOBACCO USE MED NO [place] [facility] Oct 23, 2021 08:00 AM VA-TOBACCO USER EVERY DAY [place] [facility] Oct 29, 2020 10:00 AM VA-TOBACCO DOESNT USE [place] 30 MIN WAKEUP [place] [facility] Oct 29, 2020 10:00 AM VA-TOBACCO USE 30 YEARS OR MORE [place] [facility] Oct 29, 2020 10:00 AM VA-TOBACCO USE ADVICE [place] [facility] Oct 29, 2020 10:00 AM VA-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 USE 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 [place] [facility] Oct 29, 2020 10:00 AM VA-TOBACCO USE MED NOTIFY PROVIDER [place] [facility] Oct 29, 2020 10:00 AM VA-TOBACCO USER EVERY DAY [place] [facility] Oct 10, 2019 11:00 AM VA-TOBACCO FORMER USER [place] [facility] Oct 10, 2019 11:00 AM VA-TOBACCO QUIT < 1 YEAR [place] [facility] Oct 26, 2018 07:55 AM VA-TOBACCO USE > 15 LESS THAN 30 YEARS [place] [facility] Oct 26, 2018 07:55 AM VA-TOBACCO USE ADVICE [place] [facility] Oct 26, 2018 07:55 AM VA-TOBACCO USE 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 [place] [facility] Oct 26, 2018 07:55 AM VA-TOBACCO USE MED NO [place] [facility] Oct 26, 2018 07:55 AM VA-TOBACCO USE [place] 30 MIN OF WAKEUP [place] [facility] Oct 26, 2018 07:55 AM VA-TOBACCO USER EVERY DAY [place] [facility] Aug 04, 2017 08:53 AM CURRENT SMOKER [place] [facility] Aug 04, 2017 08:53 AM V1-PT DECLINES REF TO TOBACCO CESS PRGM [place] [facility] Aug 04, 2017 08:53 AM V1-PT DECLINES TOBACCO CESSATION MEDS [place] [facility] Aug 04, 2017 08:53 AM V1-PT THINKING ABOUT QUIT TOBACCO USE [place] [facility] Jan 31, 2017 09:51 AM QUIT TOBACCO USE IN PAST YEAR 31 days [place] [place] [facility] Jan 26, 2016 08:36 AM CURRENT SMOKER [place] [facility] Jan 26, 2016 08:36 AM V1-PT DECLINES REF TO TOBACCO CESS PRGM [place] [facility] Jan 26, 2016 08:36 AM V1-PT DECLINES TOBACCO CESSATION MEDS [place] [place] [facility] Jan 26, 2016 08:36 AM V1-PT THINKING ABOUT QUIT TOBACCO USE [place] [facility] Feb 20, 2015 10:25 AM QUIT TOBACCO USE IN PAST YEAR [place] [place] [facility] June 17, 2014 07:37 AM CURRENT SMOKER Reports being an off and on smoker -cigarettes [place] [place] [facility] June 17, 2014 07:37 AM V1-PT DECLINES REF TO TOBACCO CESS PRGM [place] [facility] June 17, 2014 07:37 AM V1-PT DECLINES TOBACCO CESSATION MEDS [place] [facility] June 17, 2014 07:37 AM V1-PT THINKING ABOUT QUIT TOBACCO USE [place] [place] [facility] Sep 14, 2011 09:51 AM CURRENT SMOKER less than a pack a day [place] [place] [facility] Sep 14, 2011 09:51 AM V1-PT DECLINES REF TO TOBACCO CESS PRGM [place] [place] [facility] Sep 14, 2011 09:51 AM V1-PT DECLINES TOBACCO CESSATION MEDS [place] [place] [facility] Sep 14, 2011 09:51 AM V1-PT THINKING ABOUT QUIT TOBACCO USE [place] [place] [facility] Mar 09, 2010 09:32 AM CURRENT SMOKER 1 ppd [place] [facility] Mar 09, 2010 09:32 AM V1-PT DECLINES TOBACCO CESSATION MEDS [place] [facility] Mar 09, 2010 09:32 AM V1-PT REF TO NON-VA TOBACCO CESS PRGM [facility] Mar 09, 2010 09:32 AM V1-PT THINKING ABOUT QUIT [facility] Sep 29, 2009 02:07 PM V1-PT DECLINES REF TO TOBACCO CESS PR[facility] Sep 29, 2009 02:07 PM V1-PT DECLINES TOBACCO CESSATION MEDS [facility] Sep 29, 2009 02:07 PM V1-PT NOT INTERESTED IN QUIT [facility]BACCO USE [facility] Jan 29, 2009 11:00 AM CURRENT SMOKER 1 ppd [facility] Jan 29, 2009 11:00 AM V1-PT DECLINES TOBACCO CESSATION MEDS [facility] Jan 29, 2009 11:00 AM V1-PT READY TO QUIT TOBACCO USE [facility] Mar 17, 2005 08:36 AM CURRENT SMOKER [facility] Advance Directives: All historical and current Section Date Range: From patient's date of to the date document was created. This section includes ALL of a patient's completed or amended [place] Advance and Rescinded Directives. The entries below indicate that a directive exists for the patient, but an actual copy is not included with this document. The data comes from all [place] facilities. Date Advance Directives Provider Source Nov 11, 2023 ADVANCE DIRECTIVE JACOB DEL TORO [facility] Encounter Notes: All associated encounter notes This section contains the clinical notes associated to the Encounter. Date/Time Encounter Note(s) Provider Source Oct 28, 2023 04:09 PM ADMINISTRATIVE NOTE: LOCAL TITLE: ADMINISTRATIVE NOTE STANDARD TITLE: ADMINISTRATIVE NOTE DATE OF NOTE: OCT 28, 2023@16:09 ENTRY DATE: OCT 28, 2023@16:10:11 AUTHOR: JACOB DEL TORO EXP COSIGNER: URGENCY: STATUS: COMPLETED AMSA CALLED ON THE TELEPHONE TO INFORM OF UPCOMING APPT AND NO LABWORK IS NEEDED,HOWEVER THE CALL WAS NOT ANSWERED AND A MESSAGE WAS LEFT ON VOICEMAIL DESCRIBING UPCOMING APPOINTMENT DETAILS. /natalie/ JACOB DEL TORO [facility] Signed: 10/28/2023 16:12 JACOB DEL TORO [facility]
--- OUTSIDE RECORDS SUMMARY | 2024-02-13 13:03 | XMS_ITS ---
Author Name [place] Address [address] [place] [address] Care Team Providers Care Marketing Development Representative Name Role Phone PRINCESS RAMON Primary Care [...] PART A Jul 15, 2013 PART A [id number] BRAD CUENCA JR PATIENT MEDICARE (WNR) MEDICARE (M) PART B Jul 15, 2013 PART B [id number] BRAD CUENCA JR PATIENT Selected Encounter This section includes the information on record at [place] for the Encounter. Date/Time Encounter Type Encounter Description Reason Pro vider Source Jul 27, 2023 03:20 PM Outpatient Encounter PRIMARY CARE/MEDICINE IHE Encounter Template Text not used by [place] Plan of Treatment: Future Appointments (+ 6 [...] 20 appointments. The data comes from all [place] treatment facilities. Appointment Date/Time Appointment Type Appointme nt Facility Name Nov 11, 2023 09:00 AM AMBULATORY - MEDICINE [place] [facility] [place] [facility] Nov 25, 2023 09:30 AM AMBULATORY - MEDICINE [place] [facility] [place] [facility] Nov 29, 2023 09:00 AM AMBULATORY - MEDICINE [facility] Social History: Smoking Status (Most current) and Tobacco Use (All prior to encounter date) This section includes the most current, and the historical, smoking and tobacco- related health factors from the [place] facility where the Encounter took place. Current Smoking Status This section includes the most current smoking, or tobacco-related health factor, from the [place] facility where the Encounter took place. Date/Time Current Smoking Status Comment Facil it Jan 12, 2023 09:00 AM VA-TOBACCO USER EVERY DAY [facility] Tobacco Use History This section includes a history of the smoking, or tobacco-related health factors, that were collected on or before the date of the Encounter. The data comes from the [place] facility where the Encounter took place. Date/Time Smoking Status/Tobac co Use Comment Facility Jan 12, 2023 09:00 AM VA-TOBACCO USE 30 YEARS OR MORE [place] 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 Jan 12, 2023 09:00 AM VA-TOBACCO USE MED NO [place] [facility] Jan 12, 2023 09:00 AM VA-TOBACCO USER EVERY DAY [place] [place] [facility] Oct 23, 2021 08:00 AM VA-TOBACCO DOESNT USE WI 30 MIN WAKEUP [place] [place] [facility] Oct 23, 2021 08:00 AM VA-TOBACCO USE 30 YEARS OR MORE [place] [place] [facility] Oct 23, 2021 08:00 AM VA-TOBACCO USE ADVICE [place] [place] 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 Oct 23, 2021 08:00 AM VA-TOBACCO USE MED NO [place] [place] [facility] Oct 23, 2021 08:00 AM VA-TOBACCO USER EVERY DAY [facility] [place] [facility] Oct 29, 2020 10:00 AM VA-TOBACCO DOESNT USE WI 30 MIN WAKEUP [facility] [place] [facility] Oct 29, 2020 10:00 AM VA-TOBACCO USE 30 YEARS OR MORE [facility] [place] [facility] Oct 29, 2020 10:00 AM VA-TOBACCO USE ADVICE [place] [place] 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 Oct 29, 2020 10:00 AM VA-TOBACCO USE MED NOTIFY PROVIDER [place] [place] [facility] Oct 29, 2020 10:00 AM VA-TOBACCO USER EVERY DAY [place] [place] [facility] Oct 10, 2019 11:00 AM VA-TOBACCO FORMER USER [facility] [place] [facility] Oct 10, 2019 11:00 AM VA-TOBACCO QUIT < 1 YEAR [facility] [place] [facility] Oct 26, 2018 07:55 AM VA-TOBACCO USE > 15 LESS THAN 30 YEARS [facility] [place] [facility] Oct 26, 2018 07:55 AM VA-TOBACCO USE ADVICE [place] [place] 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 Oct 26, 2018 07:55 AM VA-TOBACCO USE MED NO [facility] [place] [facility] Oct 26, 2018 07:55 AM VA-TOBACCO USE [place] 30 MIN OF WAKEUP [place] [facility] Oct 26, 2018 07:55 AM VA-TOBACCO USER EVERY DAY [place] [facility] [place] [facility] Aug 04, 2017 08:53 AM CURRENT SMOKER [facility] [place] [facility] Aug 04, 2017 08:53 AM V1-PT DECLINES REF TO TOBACCO CESS PRGM [facility] [place] [facility] Aug 04, 2017 08:53 AM V1-PT DECLINES TOBACCO CESSATION MEDS [facility] [place] [facility] Aug 04, 2017 08:53 AM V1-PT THINKING ABOUT QUIT TOBACCO USE [facility] [place] [facility] Jan 31, 2017 09:51 AM QUIT TOBACCO USE IN PAST YEAR 31 days [facility] [place] [facility] Jan 26, 2016 08:36 AM CURRENT SMOKER [facility] [place] [facility] Jan 26, 2016 08:36 AM V1-PT DECLINES REF TO TOBACCO CESS PRGM [facility] [place] [facility] Jan 26, 2016 08:36 AM V1-PT DECLINES TOBACCO CESSATION MEDS [facility] [place] [facility] Jan 26, 2016 08:36 AM V1-PT THINKING ABOUT QUIT TOBACCO USE [facility] [place] [facility] Feb 20, 2015 10:25 AM QUIT TOBACCO USE IN PAST YEAR [facility] [place] [facility] June 17, 2014 07:37 AM CURRENT SMOKER Reports being an off and on smoker -cigarettes [facility] [place] [facility] June 17, 2014 07:37 AM V1-PT DECLINES REF TO TOBACCO CESS PRGM [facility] [place] [facility] June 17, 2014 07:37 AM V1-PT DECLINES TOBACCO CESSATION MEDS [facility] [place] [facility] June 17, 2014 07:37 AM V1-PT THINKING ABOUT QUIT TOBACCO USE [facility] [place] [facility] Sep 14, 2011 09:51 AM CURRENT SMOKER less than a pack a day [facility] [place] [facility] Sep 14, 2011 09:51 AM V1-PT DECLINES REF TO TOBACCO CESS PRGM [facility] [place] [facility] Sep 14, 2011 09:51 AM V1-PT DECLINES TOBACCO CESSATION MEDS [facility] [place] [facility] Sep 14, 2011 09:51 AM V1-PT THINKING ABOUT QUIT TOBACCO USE [facility] [place] [facility] Mar 09, 2010 09:32 AM CURRENT SMOKER 1 ppd [facility] [facility] Mar 09, 2010 09:32 AM V1-PT DECLINES TOBACCO CESSATION MED[facility] Mar 09, 2010 09:32 AM V1-PT REF TO NON-VA TOBACCO CESS PRGM [facility] Mar 09, 2010 09:32 AM V1-PT THINKING ABOUT QUIT TOBACCO USE [facility] Sep 29, 2009 02:07 PM V1-PT DECLINES REF TO TOBACCO CESS PRGM [facility] Sep 29, 2009 02:07 PM V1-PT DECLINES TOBACCO CESSATION MEDS [facility] Sep 29, 2009 02:07 PM V1-PT NOT INTERESTED IN QUIT TOBACCO USE [facility] Jan 29, 2009 11:00 AM CURRENT SMOKER 1 ppd [facility] Jan 29, 2009 11:00 AM V1-PT DECLINES TOBACCO CESSATION MEDS [facility] Jan 29, 2009 11:00 AM V1-PT READY TO QUIT TOBACCO USE [facility] Mar 17, 2005 08:36 AM CURRENT SMOKER [facility] Advance Directives: All historical and current Section Date Range: From patient's date of to the date document was created. This section includes ALL of a patient's completed or amended [place] Advance and Rescinded Directives. The entries below indicate that a directive exists for the patient, but an actual copy is not included with this document. The data comes from all [place] facilities. Date Advance Directives Provider Source Nov 11, 2023 ADVANCE DIRECTIVE JACOB DEL TORO [place] [facility] Encounter Notes: All associated encounter notes This section contains the clinical notes associated to the Encounter. Date/Time Encounter Note(s) Provider Source Jul 27, 2023 03:20 PM NURSING NONVA NOTE : LOCAL TITLE: OUTSIDE LAB RESULTS STANDARD TITLE: NURSING NONVA NOTE DATE OF NOTE: JUL 27, 2023@15:20 ENTRY DATE: JUL 27, 2023@15:20:22 AUTHOR: YANN PARK EXP COSIGNER: URGENCY: STATUS: COMPLETED Outside Lab Values Date of Lab draw: Jul Location of lab tests: [address] Notated Outside Lab Values: OTHER LAB VALUES: HGB 16.2 ADDITIONAL INFORMATION RELEVENT TO THE RECORDING OF OUTSIDE LABS: THERAPEUTIC PHLEBOTOMY /es/ YANN PARK Registered Nurse Signed: 07/27/2023 15:22 YANN PARK [place] [facility]
--- OUTSIDE RECORDS SUMMARY | 2024-02-13 13:03 | XMS_ITS | Encounter Summary ---
Author Name [facility] [place] Address [address] [place] [address] Care Team Providers Care Provider Network Mgr Name Role Phone PRINCESS RAMON Primary Care [...] PART B Jul 15, 2013 PART B [id number] BRAD CUENCA JR PATIENT MEDICARE (WNR) MEDICARE (M) PART A Jul 15, 2013 PART A [id number] BRAD CUENCA JR PATIENT Selected Encounter This section includes the information on record at [place] for the Encounter. Date/Time Encounter Type Encounter Description Reason Pro vider Source Aug 30, 2023 12:00 AM Outpatient Encounter EVENT (HISTORICAL) [...] 11, 2023 09:00 AM AMBULATORY - MEDICINE [place] [place] [facility] Nov 25, 2023 09:30 AM AMBULATORY - MEDICINE [place] [facility] Nov 29, 2023 09:00 AM AMBULATORY - MEDICINE [place] [facility] Feb 21, 2024 09:45 AM AMBULATORY - MEDICINE [place] [facility] Feb 27, 2024 10:00 AM AM[facility]ULATORY - [facility] [place] [facility] Social History: Smoking Status (Most [...] took place. Date/Time Current Smoking Status Comment [facility] Jan 12, 2023 09:00 AM VA-TOBACCO USER EVERY DAY [facility] Tobacco Use History This section includes a history of the smoking, or tobacco-related health factors, that were collected on or before the date of the Encounter. The data comes from the [place] facility where the Encounter took place. 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 [place] [facility] [place] [facility] Jan 12, 2023 09:00 AM VA-TOBACCO USE MED NO [place] [facility] [place] [facility] Jan 12, 2023 09:00 AM VA-TOBACCO USER EVERY DAY [place] [facility] [facility] Oct 23, 2021 08:00 AM VA-TOBACCO DOESNT USE WI 30 MIN WAKEUP [place] [facility] [place] [facility] Oct 23, 2021 08:00 AM VA-TOBACCO USE 30 YEARS OR MORE [place] [facility] [place] [facility] Oct 23, 2021 08:00 AM VA-TOBACCO USE ADVICE [place] [facility] [place] [facility] Oct 23, 2021 08:00 AM VA-TOBACCO USE 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 NO [place] [facility] [place] [facility] Oct 23, 2021 08:00 AM VA-TOBACCO USE MED NO [place] [facility] [place] [facility] Oct 23, 2021 08:00 AM VA-TOBACCO USER EVERY DAY [place] [facility] [place] [facility] Oct 29, 2020 10:00 AM VA-TOBACCO DOESNT USE WI 30 MIN WAKEUP [place] [facility] [place] [facility] Oct 29, 2020 10:00 AM VA-TOBACCO USE 30 YEARS OR MORE [place] [facility] [place] [facility] Oct 29, 2020 10:00 AM VA-TOBACCO USE ADVICE [place] [facility] [place] [facility] Oct 29, 2020 10:00 AM VA-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 USE 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 [place] [facility] [place] [facility] Oct 29, 2020 10:00 AM VA-TOBACCO USE MED NOTIFY PROVIDER [place] [facility] [place] [facility] Oct 29, 2020 10:00 AM VA-TOBACCO USER EVERY DAY [place] [facility] [place] [facility] Oct 10, 2019 11:00 AM VA-TOBACCO FORMER USER [place] [facility] [place] [facility] Oct 10, 2019 11:00 AM VA-TOBACCO QUIT < 1 YEAR [place] [facility] [place] [facility] Oct 26, 2018 07:55 AM VA-TOBACCO USE > 15 LESS THAN 30 YEARS [place] [facility] [place] [facility] Oct 26, 2018 07:55 AM VA-TOBACCO USE ADVICE [place] [facility] [place] [facility] Oct 26, 2018 07:55 AM VA-TOBACCO USE 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 NO [place] [facility] [place] [facility] Oct 26, 2018 07:55 AM VA-TOBACCO USE MED NO [place] [facility] [place] [facility] Oct 26, 2018 07:55 AM VA-TOBACCO USE WI 30 MIN OF WAKEUP [facility] [place] [facility] Oct 26, 2018 07:55 AM VA-TOBACCO USER EVERY DAY [facility] [place] [facility] Aug 04, 2017 08:53 AM CURRENT SMOKER [facility] [place] [facility] Aug 04, 2017 08:53 AM V1-PT DECLINES REF TO TOBACCO CESS PRGM [facility] [place] [facility] Aug 04, 2017 08:53 AM V1-PT DECLINES TOBACCO CESSATION MEDS [facility] [place] [facility] Aug 04, 2017 08:53 AM V1-PT THINKING ABOUT QUIT TOBACCO USE [facility] [facility] Jan 31, 2017 09:51 AM QUIT TOBACCO USE IN PAST YEAR 31 days [facility] [place] [facility] Jan 26, 2016 08:36 AM CURRENT SMOKER [facility] [place] [facility] Jan 26, 2016 08:36 AM V1-PT DECLINES REF [facility]ACCO [facility]ESS [facility] [place] [facility] Jan 26, 2016 08:36 AM V1-PT DECLINES TOBACCO CESSATION MEDS [place] [facility] [place] [facility] Jan 26, 2016 08:36 AM V1-PT THINKING ABOUT QUIT TOBACCO USE [place] [facility] [place] [facility] Feb 20, 2015 10:25 AM QUIT TOBACCO USE IN PAST YEAR [facility] [place] [facility] June 17, 2014 07:37 AM CURRENT SMOKER Reports being an off and on smoker -cig[facility] [place] [facility] June 17, 2014 07:37 AM V1-PT DECLINES REF TO TOBACCO CESS PRGM [facility] [place] [facility] June 17, 2014 07:37 AM V1-PT DECLINES TOBACCO CESSATION MEDS [facility] [place] [facility] June 17, 2014 07:37 AM V1-PT THINKING ABOUT QUIT TOBACCO USE [facility] [place] [facility] Sep 14, 2011 09:51 AM CURRENT SMOKER less than a pack a day [facility] [facility] Sep 14, 2011 09:51 AM V1-PT DECLINES REF TO TOBACCO CESS PRGM [facility] [place] [place] [facility] Sep 14, 2011 09:51 AM V1-PT DECLINES TOBACCO CESSATION MEDS [facility] [place] [facility] Sep 14, 2011 09:51 AM V1-PT THINKING ABOUT QUIT TOBACCO USE [facility] Mar 09, 2010 09:32 AM CURRENT SMOKER 1 ppd [facility] Mar 09, 2010 09:32 AM V1-PT DECLINES TOBACCO CESSATION MEDS [facility] Mar 09, 2010 09:32 AM V1-PT REF TO NON-VA TOBACCO CESS PRGM [facility] Mar 09, 2010 09:32 AM V1-PT THINKING ABOUT QUIT TOBACCO USE [facility] Sep 29, 2009 02:07 PM V1-PT DECLINES REF TO TOBACCO CESS PRGM [facility] Sep 29, 2009 02:07 PM V1-PT DECLINES TOBACCO CESSATION MEDS [facility] Sep 29, 2009 02:07 PM V1-PT NOT INTERESTED IN QUIT TOBACCO USE [facility] Jan 29, 2009 11:00 AM CURRENT SMOKER 1 ppd [facility] Jan 29, 2009 11:00 AM V1-PT DECLINES TOBACCO CESSATION MEDS [facility] Jan 29, 2009 11:00 AM V1-PT READY TO QUIT TOBACCO USE [facility] Mar 17, 2005 08:36 AM CURRENT SMOKER [facility] Advance Directives: All historical and current Section [...] 11, 2023 ADVANCE DIRECTIVE JACOB DEL TORO [facility] Encounter Notes: All associated encounter notes This section contains the clinical notes associated to the Encounter. Date/Time Encounter Note(s) Provider Source Aug 30, 2023 12:00 AM NONVA DIAGNOSTIC Franck [facility] REPORT: LOCAL TITLE: NON-VA DIAGNOSTICS STANDARD TITLE: NONVA DIAGNOSTIC STUDY REPORT DATE OF NOTE: AUG 30, 2023 ENTRY DATE: SEP 16, 2023@12:08:38 AUTHOR: KENTON VARGAS EXP COSIGNER: URGENCY: STATUS: COMPLETED VistA Imaging - Scanned Document SCANNED DOCUMENT SIGNATURE NOT REQUIRED Electronically Filed: 09/16/2023 by: KENTON VARGAS SENIOR LIVING ADVISOR KENTON VARGAS [place] [facility]
--- OUTSIDE RECORDS SUMMARY | 2024-02-13 13:03 | XMS_ITS | Encounter Summary ---
Author Name [facility] [place] [facility] [place] Address [address] [place] [address] Care Team Providers Care Spray Operator Name Role Phone PRINCESS RAMON Primary [...] PART A Jul 15, 2013 PART A [id number] BRAD CUENCA JR PATIENT MEDICARE (WNR) MEDICARE (M) PART B Jul 15, 2013 PART B [id number] BRAD CUENCA JR PATIENT Selected Encounter This section includes the information on record at [place] for the Encounter. Date/Time Encounter Type Encounter Description Reason Pro vider Source Sep 29, 2023 12:00 AM Outpatient Encounter EVENT (HISTORICAL) IHE Encounter Template Text not used by [place] Plan of Treatment: Future Appointments (+ 6 [...] 20 appointments. The data comes from all [facility]. Appointment Date/Time Appointment Type Appointme nt Facility Name Nov 11, 2023 09:00 AM AMBULATORY - MEDICINE [facility] Nov 25, 2023 09:30 AM AMBULATORY - MEDICINE [facility] Nov 29, 2023 09:00 AM AMBULATORY - MEDICINE [facility] [place] [place] [facility] Feb 21, 2024 09:45 AM AMBULATORY MEDICINE [facility] Feb 27, 2024 10:00 AM AMBULATORY MEDICINE [facility] Mar 20, 2024 09:00 AM AMBULATORY MEDICINE [facility] Active, Pending, and Scheduled Orders This section includes a listing of several types of active, pending, and scheduled orders, including clinic medications orders, diagnostic test orders, procedure orders and consult orders; where the start date of the order is 45 days before the date of the Encounter or 45 days after the date of theEncounter. The data comes from all [facility]. Test Date/Time Test Type Test Details Facility Name Nov 11, 2023 12:03 PM Consult Order [facility]-UROLOGY Cons Ocular Pathologist's Choice [facility] Social History: Smoking Status (Most current) and Tobacco Use (All prior to encounter date) This section includes the most current, and the historical, smoking and tobacco- related health factors from the [place] facility where the Encounter took place. Current Smoking Status This section includes the most current smoking, or tobacco-related health factor, from the [place] facility where the Encounter took place. Date/Time Current Smoking Status Comment [facility] it Jan 12, 2023 09:00 AM VA-TOBACCO USER EVERY DAY [facility] Tobacco Use History This section includes a history of the smoking, or tobacco-related health factors, that were collected on or before the date of the Encounter. The data comes from the [place] facility where the Encounter took place. 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 [facility] [facility] Jan 12, 2023 09:00 AM VA-TOBACCO USE MED NO [facility] [place] [facility] Jan 12, 2023 09:00 AM VA-TOBACCO USER EVERY DAY [place] [facility] [place] [facility] Oct 23, 2021 08:00 AM VA-TOBACCO DOESNT USE WI 30 MIN WAKEUP [place] [facility] Oct 23, 2021 08:00 AM VA-TOBACCO USE 30 YEARS OR MORE [place] [facility] [place] [facility] Oct 23, 2021 08:00 AM VA-TOBACCO USE ADVICE [place] [facility] [place] [facility] Oct 23, 2021 08:00 AM VA-TOBACCO USE 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 [facility] [place] [facility] Oct 23, 2021 08:00 AM VA-TOBACCO USE MED NO [place] [facility] [place] [facility] Oct 23, 2021 08:00 AM VA-TOBACCO USER EVERY DAY [place] [facility] [place] [facility] Oct 29, 2020 10:00 AM VA-TOBACCO DOESNT USE WI 30 MIN WAKEUP [place] [place] [facility] Oct 29, 2020 10:00 AM VA-TOBACCO USE 30 YEARS OR MORE [place] [facility] [place] [facility] Oct 29, 2020 10:00 AM VA-TOBACCO USE ADVICE [place] [facility] [place] [facility] Oct 29, 2020 10:00 AM VA-TOBACCO USE 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 [place] [facility] [place] [facility] Oct 29, 2020 10:00 AM VA-TOBACCO USE MED NOTIFY PROVIDER [place] [facility] [place] [facility] Oct 29, 2020 10:00 AM VA-TOBACCO USER EVERY DAY [place] [facility] [place] [facility] Oct 10, 2019 11:00 AM VA-TOBACCO FORMER USER [facility] [facility] Oct 10, 2019 11:00 AM VA-TOBACCO QUIT < 1 YEAR [place] [facility] [place] [facility] Oct 26, 2018 07:55 AM VA-TOBACCO USE > 15 LESS THAN 30 YEARS [place] [facility] [place] [facility] Oct 26, 2018 07:55 AM VA-TOBACCO USE ADVICE [place] [facility] [facility] Oct 26, 2018 07:55 AM VA-TOBACCO USE 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 [place] [facility] [place] [facility] Oct 26, 2018 07:55 AM VA-TOBACCO USE MED NO [place] [place] [facility] Oct 26, 2018 07:55 AM VA-TOBACCO USE WI 30 MIN OF WAKEUP [place] [facility] [place] [facility] Oct 26, 2018 07:55 AM VA-TOBACCO USER EVERY DAY [place] [facility] [place] [facility] Aug 04, 2017 08:53 AM CURRENT SMOKER [place] [facility] Aug 04, 2017 08:53 AM V1-PT DECLINES REF TO TOBACCO CESS PRGM [place] [facility] [facility] Aug 04, 2017 08:53 AM V1-PT DECLINES TOBACCO CESSATION MEDS [place] [facility] [place] [facility] Aug 04, 2017 08:53 AM V1-PT THINKING ABOUT QUIT TOBACCO USE [place] [facility] [place] [facility] Jan 31, 2017 09:51 AM QUIT TOBACCO USE IN PAST YEAR 31 days [place] [facility] [place] [facility] Jan 26, 2016 08:36 AM [facility] [place] [facility] Jan 26, 2016 08:36 AM V1-PT DECLINES REF TO TOBACCO CESS PRGM [place] [facility] [facility] Jan 26, 2016 08:36 AM V1-PT DECLINES TOBACCO CESSATION MEDS [place] [facility] [place] [facility] Jan 26, 2016 08:36 AM V1-PT THINKING ABOUT QUIT TOBACCO USE [place] [facility] [place] [facility] Feb 20, 2015 10:25 AM QUIT TOBACCO USE IN PAST YEAR [place] [facility] [place] [facility] June 17, 2014 07:37 AM CURRENT SMOKER Reports being an off and on smoker -cigarettes [place] [facility] [place] [facility] June [...] SMOKER 1 ppd [facility] [place] [facility] Mar 09, 2010 09:32 AM V1-PT DECLINES TOBACCO CESSATION MEDS [facility] [place] [facility] Mar 09, 2010 09:32 AM V1-PT REF TO NON-VA TOBACCO CESS PRGM [facility] [facility] Mar 09, 2010 09:32 AM V1-PT THINKING ABOUT QUIT TOBACCO USE [facility] [facility] Sep 29, 2009 02:07 PM V1-PT DECLINES REF TO TOBACCO CESS PRGM [facility] [place] [facility] Sep 29, 2009 02:07 PM V1-PT DECLINES TOBACCO CESSATION MEDS [facility] [place] [facility] Sep 29, 2009 02:07 PM V1-PT NOT INTERESTED IN QUIT TOBACCO USE [facility] [facility] Jan 29, 2009 11:00 AM CURRENT SMOKER 1 ppd [facility] [place] [facility] Jan 29, 2009 11:00 AM V1-PT DECLINES TOBACCO CESSATION MEDS [facility] [place] [facility] Jan 29, 2009 11:00 AM V1-PT READY TO QUIT TOBACCO USE [facility] [facility] Mar 17, 2005 08:36 AM CURRENT SMOKER [facility] [facility] Advance Directives: All historical and current Section Date Range: From patient's date of to the date document was created. This section includes ALL of a patient's completed or amended [place] Advance and Rescinded Directives. The entries below indicate that a directive exists for the patient, but an actual copy is not included with this document. The data comes from all [place] facilities. Date Advance Directives Provider Source Nov 11, 2023 ADVANCE DIRECTIVE JACOB DEL TORO [facility] Encounter Notes: All associated encounter notes This section contains the clinical notes associated to the Encounter. Date/Time Encounter Note(s) Provider Source Sep 29, 2023 12:00 AM NONVA DIAGNOSTIC S ARON REPORT: LOCAL TITLE: NON-VA DIAGNOSTICS STANDARD TITLE: NONVA DIAGNOSTIC STUDY REPORT DATE OF NOTE: SEP 29, 2023 ENTRY DATE: OCT 27, 2023@10:41:53 AUTHOR: ADIA KEITH EXP COSIGNER: URGENCY: STATUS: COMPLETED VistA Imaging - Scanned Document SCANNED DOCUMENT SIGNATURE NOT REQUIRED Electronically Filed: 10/27/2023 by: ADIA KEITH CORRUGATOR OPERATOR HELPER ADIA KEITH [facility]
--- OUTSIDE RECORDS SUMMARY | 2024-02-13 13:03 | XMS_ITS ---
Author Name [facility] [place] [facility] [place] Organization [place] Address [address] [place] [address] Care Team Providers Care Home Appliance Technician Name Role Phone PRINCESS RAMON Primary Care [...] PART A Jul 15, 2013 PART A [id number] [facility] BRAD CUENCA JR PATIENT MEDICARE (WNR) MEDICARE (M) PART B Jul 15, 2013 PART B [id number] BRAD CUENCA JR PATIENT Selected Encounter This section includes the information on record at [place] for the Encounter. Date/Time Encounter Type Encounter Description Reason Pro vider Source Nov 01, 2023 09:57 AM Outpatient Encounter ADMIN PAT ACTIVTIES (MASNONCT) IHE Encounter Template Text not used by [place] Plan of Treatment: Future Appointments (+ 6 [...] 20 appointments. The data comes from all [facility]. Appointment Date/Time Appointment Type Appointme nt Facility Name Nov 11, 2023 09:00 AM AMBULATORY - MEDICINE [facility] [place] [facility] Nov 25, 2023 09:30 AM [facility] Nov 29, 2023 09:00 AM AMBULATORY - MEDICINE [facility] [place] [facility] Feb 21, 2024 09:45 AM AMBULATORY MEDICINE [facility] [place] [facility] Feb 27, 2024 10:00 AM AMBULATORY MEDICINE [facility] Mar 20, 2024 09:00 AM AMBULATORY MEDICINE [facility] Active, Pending, and [...] of theEncounter. The data comes from all [facility]. Test Date/Time Test Type Test Details Facility Name Nov 11, 2023 12:03 PM Consult Order COMMUNITY CARE-UROLOGY Cons Diplomatic Officer's Choice [facility] Lab Results: +/- 30 days of the encounter This section includes the Chemistry and Hematology Lab Results on record with [place] for the patient. Radiology Reports and Pathology Reports are provided separately, in subsequent sections. Lab Results This section contains the Chemistry/Hematology Results that were resulted 30 days before or 30 daysafter the date of the Encounter. Date/Time Source Result Type Result - Unit Interpretation Reference Range Comment Nov 03, 2023 08:12 AM [facility] FERRITIN Specimen Type: SERUM No comment entered. Ordering Provider: PRINCESS RAMON Report Released Date/Time: Nov 01, 2023 12:47 PM Reporting [facility]: [facility] [address] Performing Lab: [facility] [address] [facility] [address] FERRITIN 144 ng/mL 20-300 Nov 03, 2023 08:12 AM [facility] IRON & TIBC PANEL Specimen Type: SERUM No comment entered. Ordering Provider: PRINCESS RAMON Report Released Date/Time: Nov 01, 2023 12:47 PM Reporting Lab: [address] [address] Performing Lab: [address] [address] TIBC 268 ug/dL 204-475 IRON 195 ug/dL H 40-160 Transferrin Saturation 72.8 H 20.0-50.0 Transferrin (TRF) 203 mg/dL 200-360 Nov 03, 2023 08:12 AM [facility] LIVER FUNCTION Specimen Type: SERUM No comment entered. Ordering Provider: PRINCESS RAMON Report Released Date/Time: Nov 01, 2023 12:47 PM Reporting Lab: [address] [address] Performing Lab: [address] [address] PROTEIN,TOTAL 6.4 g/dL 6.0-8.3 ALBUMIN 4.1 g/dL 3.5-5.0 ALKALINE PHOSPHATASE 75 U/L 40-150 AST 22 U/L 5-34 ALT 35 U/L BILIRUBIN, TOTAL 0.6 mg/dL 0.2-1.2 Nov 03, 2023 08:12 AM [facility] CBC Specimen Type: BLOOD No comment entered. Ordering Provider: PRINCESS RAMON Report Released Date/Time: Nov 01, 2023 12:47 PM Reporting Lab: [address] [address] Performing Lab: [address] [address] WBC 7.31 10*3/uL 4.50-11.00 RBC 5.14 10*6/uL [...] and tobacco- related health factors from the [place] facility where the Encounter took place. Current Smoking Status This section includes the most current smoking, or tobacco-related health factor, from the [place] facility where the Encounter took place. Date/Time Current Smoking Status Comment [facility] Jan 12, 2023 09:00 AM VA-TOBACCO USER EVERY DAY CO [facility] [facility] Tobacco Use History This section includes a history of the smoking, or tobacco-related health factors, that were collected on or before the date of the Encounter. The data comes from the [place] facility where the Encounter took place. 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 CO [facility] [place] [facility] Jan 12, 2023 09:00 AM VA-TOBACCO USE MED NO CO [facility] [place] [facility] Jan 12, 2023 09:00 AM VA-TOBACCO USER EVERY DAY [facility] [place] [facility] Oct 23, 2021 08:00 AM VA-TOBACCO DOESNT USE WI 30 MIN WAKEUP [facility] [place] [facility] Oct 23, 2021 08:00 AM VA-TOBACCO USE 30 YEARS OR MORE [facility] [place] [facility] Oct 23, 2021 08:00 AM VA-TOBACCO USE ADVICE [facility] [place] [facility] Oct 23, 2021 08:00 AM VA-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 USE 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 NO [facility] [place] [facility] Oct 23, 2021 08:00 AM VA-TOBACCO USE MED NO [facility] [place] [facility] Oct 23, 2021 08:00 AM VA-TOBACCO USER EVERY DAY [facility] [place] [facility] Oct 29, 2020 10:00 AM VA-TOBACCO DOESNT USE WI 30 MIN WAKEUP CO [facility] [place] [facility] Oct 29, 2020 10:00 AM VA-TOBACCO USE 30 YEARS OR MORE [facility] [place] [facility] Oct 29, 2020 10:00 AM VA-TOBACCO USE ADVICE [facility] [place] [facility] Oct 29, 2020 10:00 AM VA-TOBACCO USE 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 YES CO [facility] [place] [facility] Oct 29, 2020 10:00 AM VA-TOBACCO USE MED NOTIFY PROVIDER CO [facility] [place] [facility] Oct 29, 2020 10:00 AM VA-TOBACCO USER EVERY DAY CO [facility] [place] [facility] Oct 10, 2019 11:00 AM VA-TOBACCO FORMER USER [facility] [place] [facility] Oct 10, 2019 11:00 AM VA-TOBACCO QUIT < 1 YEAR [facility] [place] [facility] Oct 26, 2018 07:55 AM VA-TOBACCO USE > 15 LESS THAN 30 YEARS [facility] [place] [facility] Oct 26, 2018 07:55 AM VA-TOBACCO USE ADVICE CO [facility] [place] [facility] Oct 26, 2018 07:55 AM VA-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 USE 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 NO CO [facility] [place] [facility] Oct 26, 2018 07:55 AM VA-TOBACCO USE MED NO [facility] [place] [facility] Oct 26, 2018 07:55 AM VA-TOBACCO USE WI 30 MIN OF WAKEUP CO [facility] [place] [facility] Oct 26, 2018 07:55 AM VA-TOBACCO USER EVERY DAY [facility] [place] [facility] Aug [...] IN PAST YEAR [facility] [place] [facility] June 17, 2014 07:37 AM CURRENT SMOKER Reports being an off and on smoker -cigarettes [facility] [place] [facility] June 17, 2014 07:37 AM V1-PT DECLINES REF TO TOBACCO [facility]ESS [facility] [place] [facility] June 17, 2014 07:37 AM V1-PT DECLINES TOBACCO CESSATION MEDS [facility] [place] [facility] June 17, 2014 07:37 AM V1-PT THINKING ABOUT QUIT TOBACCO USE [facility] [place] [facility] Sep 14, 2011 09:51 AM CURRENT SMOKER less than a pack a day [facility] [place] [facility] Sep 14, 2011 09:51 AM V1-PT DECLINES REF TO TOBACCO CESS PRGM [facility] [place] [facility] Sep 14, 2011 09:51 AM V1-PT DECLINES TOBACCO CESSATION MEDS [facility] [place] [facility] Sep 14, 2011 09:51 AM V1-PT THINKING ABOUT QUIT TOBACCO USE [facility] [place] [facility] Mar 09, 2010 09:32 AM CURRENT SMOKER 1 ppd CO [facility] [place] [facility] Mar 09, 2010 09:32 AM V1-PT DECLINES TOBACCO CESSATION MEDS [facility] [place] [facility] Mar 09, 2010 09:32 AM V1-PT REF TO NON-VA TOBACCO CESS PRGM [facility] Mar 09, 2010 09:32 AM V1-PT THINKING ABOUT QUIT TOBACCO USE [facility] Sep 29, 2009 02:07 PM V1-PT DECLINES REF TO TOBACCO CESS PRGM [facility] Sep 29, 2009 02:07 PM V1-PT DECLINES TOBACCO CESSATION MEDS [facility] Sep 29, 2009 02:07 PM V1-PT NOT INTERESTED IN QUIT TOBACCO USE [facility] Jan 29, 2009 11:00 AM CURRENT SMOKER 1 ppd [facility] Jan 29, 2009 11:00 AM V1-PT DECLINES TOBACCO CESSATION MEDS [facility] Jan 29, 2009 11:00 AM V1-PT READY TO QUIT TOBACCO USE [facility] Mar 17, 2005 08:36 AM CURRENT SMOKER [facility] Advance Directives: All historical and current Section Date Range: From patient's date of to the date document was created. This section includes ALL of a patient's completed or amended [place] Advance and Rescinded Directives. The entries below indicate that a directive exists for the patient, but an actual copy is not included with this document. The data comes from all [place] facilities. Date Advance Directives Provider Source Nov 11, 2023 ADVANCE DIRECTIVE JACOB DEL TORO [facility] Encounter Notes: All associated encounter notes This section contains the clinical notes associated to the Encounter. Date/Time Encounter Note(s) Provider Source Nov 01, 2023 10:18 AM ADDENDUM: LOCAL TITLE: Addendum STANDARD TITLE: ADDENDUM DATE OF NOTE: NOV 01, 2023@10:18:35 ENTRY DATE: NOV 01, 2023@10:18:36 AUTHOR: MARLEE CLINTON COSIGNER: URGENCY: STATUS: COMPLETED Spoke to directly, he states that he needs Ferritin lab. [place] notes that he has phlebotomy every month as iron level is too high. Last Ferritin December 2022 was [address] Note from Dr. Adhmed on 05/12/23 reads as follows: 4. History of hemochromatosis genetic test he was homozygous for hemochromatosis gene in 2009 and also has positive family history patient has been doing phlebotomies every months his last ferritin level was 205. He is going to [facility] on a monthly basis. ALERT TO PCP: Please advise if ok to order Ferritin lab and if you would like other labs based on this. /natalie/ MARLEE CLINTON RN REGISTERED NURSE Signed: 11/01/2023 10:21 Receipt Acknowledged By: 11/01/2023 12:31 /es/ PRINCESS RAMON D.O. PHYSICIAN --- Original Document --- 11/01/23 CCC: SCHEDULING ADMINISTRATION: Patient Demographics Patient Name: BRAD CUENCA Patient Primary Phone: [phone] Patient Primary Address: [address] [place] [id number] Patient : 1950 Patient Age: 73 Caller/Recipient Relation to Patient: Self Administrative Administrative Note Reason: Returned Call Administrative Note Comments: returning call about lab work that is wanted. Would like to speak with Pact RN in regards to what is needed. Please call a couple times if does not answer the first call. IMPORTANT: This note was created by [facility] Clinical Contact Center staff. Please do not alert the staff member by adding them as a signer for future communications. Alerts are not monitored by this user. /es/ TREVER BEN1 [facility] AMSA Signed: 11/01/2023 09:58 Receipt Acknowledged By: 11/01/2023 10:27 /es/ LIZETH ANDRES REGISTERED NURSE for TRU NEHAL 11/01/2023 10:18 /es/ MARLEE CLINTON RN REGISTERED NURSE 11/01/2023 ADDENDUM STATUS: COMPLETED upcoming appt on 11/11/23, would like Ferritin level prior to this /es/ MARLEE E CLINTON, RN REGISTERED NURSE Signed: 11/01/2023 10:22 11/01/2023 ADDENDUM STATUS: COMPLETED ALSO PLEASE NOTE RN has lab forms for [facility] for Hemochromotosis in blue labs folder, bottom desk drawer /avani CLINTON RN REGISTERED NURSE Signed: 11/01/2023 10:27 MARLEE CLINTON [place] [facility] [place] [facility] Nov 01, 2023 09:57 AM ADMINISTRATIVE NOTE: LOCAL TITLE: CCC: SCHEDULING ADMINISTRATION STANDARD TITLE: ADMINISTRATIVE NOTE DATE OF NOTE: NOV 01, 2023@09:57:50 ENTRY DATE: NOV 01, 2023@09:57:50 AUTHOR: TREVER CARUSO COSIGNER: URGENCY: STATUS: COMPLETED CCC: SCHEDULING ADMINISTRATION Has ADDENDA Patient Demographics Patient Name: BRAD CUENCA Patient Primary Phone: [phone] Patient Primary [address]: [address] [place] [id number] Patient : 1950 Patient Age: 73 Caller/Recipient Relation to Patient: Self Administrative Administrative Note Reason: Returned Call Administrative Note Comments: returning call about lab work that is wanted. Would like to speak with Pact RN in regards to what is needed. Please call a couple times if does not answer the first call. IMPORTANT: This note was created by [facility] Clinical Contact Center staff. Please do not alert the staff member by adding them as a signer for future communications. Alerts are not monitored by this user. /natalie/ TREVER CARUSO VISN1 [facility] AMSA Signed: 11/01/2023 09:58 Receipt Acknowledged By: 11/01/2023 10:27 /natalie/ LIZETH ANDRES REGISTERED NURSE for TRU [place] 11/01/2023 10:18 /natalie/ MARLEE CLINTON RN REGISTERED NURSE 11/01/2023 ADDENDUM STATUS: COMPLETED Spoke to directly, he states that he needs Ferritin lab. notes that he has phlebotomy every month as iron level is too high. Last Ferritin December 2022 was [address]24. Note from Dr. Peters on 05/12/23 reads as follows: 4. History of hemochromatosis genetic test he was homozygous for hemochromatosis gene in 2009 and also has positive family history patient has been doing phlebotomies every months his last ferritin level was 205. He is going to [facility] on a monthly basis. ALERT TO PCP: Please advise if ok to order Ferritin lab and if you would like other labs based on this. /natalie/ MARLEE CLINTON RN REGISTERED NURSE Signed: 11/01/2023 10:21 Receipt Acknowledged By: 11/01/2023 12:31 /natalie/ PRINCESS RAMON D.O. PHYSICIAN 11/01/2023 ADDENDUM STATUS: COMPLETED upcoming appt on 11/11/23, would like Ferritin level prior to this /avani CLINTON RN REGISTERED NURSE Signed: 11/01/2023 10:22 11/01/2023 ADDENDUM STATUS: COMPLETED ALSO PLEASE NOTE RN has lab forms for [facility] for Hemochromotosis in blue labs folder, bottom desk drawer /avani CLINTON RN REGISTERED NURSE Signed: 11/01/2023 10:27 11/03/2023 ADDENDUM STATUS: COMPLETED copies of previously completed lab orders for [facility] printed from [facility] and given to PCP as guideline for requested orders /avani CLINTON RN REGISTERED NURSE Signed: 11/03/2023 15:31 TREVER CARUSO CN[facility]
--- OUTSIDE RECORDS SUMMARY | 2024-02-13 13:03 | XMS_ITS ---
Author Name [facility] [place] Organization [place] Address [address] [place] [address] Care Team Providers Care Corrosion Engineer Name Role Phone PRINCESS RAMON Primary [...] PART A Jul 15, 2013 PART A [id number] [facility] BRAD CUENCA JR PATIENT MEDICARE (WNR) MEDICARE (M) PART B Jul 15, 2013 PART B [id number] BRAD CUENCA JR PATIENT Selected Encounter This section includes the information on record at [place] for the Encounter. Date/Time Encounter Type Encounter Description Reason Pro vider Source Aug 15, 2023 02:55 PM Outpatient Encounter ADMIN PAT ACTIVTIES (MASNONCT) IHE [...] - MEDICINE [facility] [place] [facility] Nov 25, 2023 09:30 AM AMBULATORY - MEDICINE [facility] [place] [facility] Nov 29, 2023 09:00 AM AMBULATORY - MEDICINE [facility] [place] [facility] Social History: Smoking Status (Most [...] took place. Date/Time Current Smoking Status Comment [facility] Jan 12, 2023 09:00 AM VA-TOBACCO USER EVERY DAY [facility] Tobacco Use History This section includes a history of the smoking, or tobacco-related health factors, that were collected on or before the date of the Encounter. The data comes from the [place] facility where the Encounter took place. 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 NO [facility] [place] [facility] Jan 12, 2023 09:00 AM VA-TOBACCO USE MED NO [facility] [place] [facility] Jan 12, 2023 09:00 AM VA-TOBACCO USER EVERY DAY [facility] [place] [facility] Oct 23, 2021 08:00 AM VA-TOBACCO DOESNT USE WI 30 MIN WAKEUP [facility] [place] [facility] Oct 23, 2021 08:00 AM VA-TOBACCO USE 30 YEARS OR MORE [facility] [place] [facility] Oct 23, 2021 08:00 AM VA-TOBACCO USE ADVICE [facility] [place] [facility] Oct 23, 2021 08:00 AM VA-TOBACCO USE COMPONENT ASSEMBLER NO [facility] [place] [facility] Oct 23, 2021 08:00 AM VA-TOBACCO USE MED NO [facility] [place] [facility] Oct 23, 2021 08:00 AM VA-TOBACCO USER EVERY DAY [facility] [place] [facility] Oct 29, 2020 10:00 AM VA-TOBACCO DOESNT USE WI 30 MIN WAKEUP [facility] [place] [facility] Oct 29, 2020 10:00 AM VA-TOBACCO USE 30 YEARS OR MORE [facility] [place] [facility] Oct 29, 2020 10:00 AM VA-TOBACCO USE ADVICE [facility] [place] [facility] Oct 29, 2020 10:00 AM VA-TOBACCO USE COMPONENT ASSEMBLER YES [facility] [place] [facility] Oct 29, 2020 10:00 AM VA-TOBACCO USE MED NOTIFY PROVIDER [facility] [place] [facility] Oct 29, 2020 10:00 AM VA-TOBACCO USER EVERY DAY [facility] [place] [facility] Oct 10, 2019 11:00 AM VA-TOBACCO FORMER USER [facility] [place] [facility] Oct 10, 2019 11:00 AM VA-TOBACCO QUIT < 1 YEAR [facility] [place] [facility] Oct 26, 2018 07:55 AM VA-TOBACCO USE > 15 LESS THAN 30 YEARS [facility] [place] [facility] Oct 26, 2018 07:55 AM VA-TOBACCO USE ADVICE [facility] [place] [facility] Oct 26, 2018 07:55 AM VA-TOBACCO USE COMPONENT ASSEMBLER NO [facility] [place] [facility] Oct 26, 2018 07:55 AM VA-TOBACCO USE MED NO [facility] [place] [facility] Oct 26, 2018 07:55 AM VA-TOBACCO USE WI 30 MIN OF WAKEUP [facility] [place] [facility] Oct 26, 2018 07:55 AM VA-TOBACCO USER EVERY DAY [facility] [place] [facility] Aug 04, 2017 08:53 AM CURRENT SMOKER [facility] [place] [facility] Aug 04, 2017 08:53 AM V1-PT DECLINES REF TO TOBACCO CESS PRGM [facility] [place] [facility] Aug 04, 2017 08:53 AM V1-PT DECLINES TOBACCO CESSATION MEDS [facility] [place] [facility] Aug 04, 2017 08:53 AM V1-PT THINKING ABOUT QUIT TOBACCO USE [facility] [place] [facility] Jan 31, 2017 09:51 AM QUIT TOBACCO USE IN PAST YEAR 31 days [facility] [place] [facility] Jan 26, 2016 08:36 AM CURRENT SMOKER [facility] [place] [facility] Jan 26, 2016 08:36 AM V1-PT DECLINES REF TO TOBACCO CESS PRGM [facility] [place] [facility] Jan 26, 2016 08:36 AM V1-PT DECLINES TOBACCO CESSATION MEDS [facility] Jan 26, 2016 08:36 AM V1-PT THINKING ABOUT QUIT TOBACCO USE [facility] [place] [facility] Feb 20, 2015 10:25 AM QUIT TOBACCO USE [facility]ST [facility] [place] [facility] June 17, 2014 07:37 AM CURRENT SMOKER Reports being an off and on smoker -cigarettes [facility] [place] [facility] June 17, 2014 07:37 AM V1-PT DECLINES REF TO TOBACCO CESS PRGM [facility] June 17, 2014 07:37 AM V1-PT DECLINES TOBACCO CESSATION MEDS [facility] [place] [facility] June 17, 2014 07:37 AM V1-PT THINKING ABOUT QUIT TOBACCO USE [facility] [place] [facility] Sep 14, 2011 09:51 AM CURRENT SMOKER less than a pack a day [facility] [place] [facility] Sep 14, 2011 09:51 AM V1-PT DECLINES REF TO TOBACCO CESS PRGM [facility] Sep 14, 2011 09:51 AM V1-PT DECLINES TOBACCO CESSATION MEDS [facility] Sep 14, 2011 09:51 AM V1-PT THINKING ABOUT QUIT TOBACCO USE [facility] [place] [facility] Mar 09, 2010 09:32 AM CURRENT SMOKER [facility] Mar 09, 2010 09:32 AM V1-PT DECLINES TOBACCO CESSATION [facility] Mar 09, 2010 09:32 AM V1-PT REF TO NON-VA TOBACCO CESS [facility] Mar 09, 2010 09:32 AM V1-PT THINKING ABOUT QUIT TOBACCO [facility] Sep 29, 2009 02:07 PM V1-PT DECLINES REF TO TOBACCO CESS [facility] Sep 29, 2009 02:07 PM V1-PT DECLINES TOBACCO CESSATION [facility] Sep 29, 2009 02:07 PM V1-PT NOT INTERESTED IN QUIT [facility]BACCO [facility] Jan 29, 2009 11:00 AM CURRENT SMOKER 1 ppd [facility] Jan 29, 2009 11:00 AM V1-PT DECLINES TOBACCO CESSATION [facility] Jan 29, 2009 11:00 AM V1-PT READY TO QUIT TOBACCO USE [facility] Mar 17, 2005 08:36 AM CURRENT SMOKER [facility] Advance Directives: All historical and [...] 11, 2023 ADVANCE DIRECTIVE JACOB DEL TORO [facility] Encounter Notes: All associated encounter notes This section contains the clinical notes associated to the Encounter. Date/Time Encounter Note(s) Provider Source Aug 15, 2023 02:55 PM PHARMACY NOTE: LOCAL TITLE: V1 PHARMACY CUSTOMER CARE MEDICATION RENEWAL STANDARD TITLE: PHARMACY NOTE DATE OF NOTE: AUG 15, 2023@14:55 ENTRY DATE: AUG 15, 2023@14:56:24 AUTHOR: MARIA ELENA,ELHAM EXP COSIGNER: URGENCY: STATUS: COMPLETED Date: Aug Division: [place] Pt referred by Pharmacy Call Center for medication renewal: Non-controlled/maintenance medication Medications requested: [id number] ALBUTEROL 90MCG (CFC-F) 200D ORAL INHL Defer to primary care provider To be mailed . Please review and renew if appropriate. *This note was generated by [employer] [facility] Customer Care. If you have any questions or need assistance, do not contact this author. Please refer all questions to your local, on-site pharmacy departments. /natalie/ ELHAM ARREDONDO CPhT Equipment Driver, [place]/Pharmacy Customer Care Signed: 08/15/2023 14:57 Receipt Acknowledged By: 08/16/2023 08:05 /natalie/ PRINCESS RAMON D.O. PHYSICIAN 08/16/2023 08:26 /natalie/ MARLEE CLINTON, RN REGISTERED NURSE ELHAM ARREDONDO CNTRL [facility]
--- OUTSIDE RECORDS SUMMARY | 2024-02-13 13:03 | XMS_ITS | Encounter Summary ---
Author Name [facility] [place] Organization [facility] [place] Address [address] [place] [address] Care Team Providers Care Kidney Puller Name Role Phone PRINCESS BELL Primary Care Provider Unavailabl e Insurance Providers: [...] PART A Jul 15, 2013 PART A [id number] [facility] BRAD CUENCA JR PATIENT MEDICARE (WNR) MEDICARE (M) PART B Jul 15, 2013 PART B [id number] BRAD CUENCA JR PATIENT Selected Encounter This section includes the information on record at [place] for the Encounter. Date/Time Encounter Type Encounter Description Reason Pro vider Source Oct 31, 2023 10:08 AM Outpatient Encounter ADMIN PAT ACTIVTIES (MASNONCT) IHE Encounter Template Text not used by [place] Plan of Treatment: Future Appointments (+ 6 [...] 20 appointments. The data comes from all [facility]. Appointment Date/Time Appointment Type Appointme nt Facility Name Nov 11, 2023 09:00 AM AMBULATORY - MEDICINE [facility] [place] [facility] Nov 25, 2023 09:30 AM AMBULATORY MEDICINE [facility] Nov 29, 2023 09:00 AM AMBULATORY - MEDICINE [place] [facility] [place] [facility] Feb 21, 2024 09:45 AM AMBULATORY MEDICINE [place] [facility] [place] [facility] Feb 27, 2024 10:00 AM AMBULATORY MEDICINE [facility] Mar 20, 2024 09:00 AM AMBULATORY MEDICINE [facility] Active, Pending, and Scheduled Orders This section includes a listing of several types of active, pending, and scheduled orders, including clinic medications orders, diagnostic test orders, procedure orders and consult orders; where the start date of the order is 45 days before the date of the Encounter or 45 days after the date of theEncounter. The data comes from all [facility]. Test Date/Time Test Type Test Details Facility Name Nov 11, 2023 12:03 PM Consult Order COMMUNITY CARE-UROLOGY Cons [facility] Lab Results: +/- 30 days of the encounter This section includes the Chemistry and Hematology Lab Results on record with [place] for the patient. Radiology Reports and Pathology Reports are provided separately, in subsequent sections. Lab Results This section contains the Chemistry/Hematology Results that were resulted 30 days before or 30 daysafter the date of the Encounter. Date/Time Source Result Type Result - Unit Interpretation Reference Range Comment Nov 03, 2023 08:12 AM [facility] FERRITIN Specimen Type: SERUM No comment entered. Ordering Provider: PRINCESS BELL Report Released Date/Time: Nov 01, 2023 12:47 PM Reporting Lab: [facility] [address] Performing Lab: [facility] [address] [facility] [address] FERRITIN 144 ng/mL 20-300 Nov 03, 2023 08:12 AM [facility] IRON & TIBC PANEL Specimen Type: SERUM No comment entered. Ordering Provider: PRINCESS BELL Report Released Date/Time: Nov 01, 2023 12:47 PM Reporting Lab: [address] [address] Performing Lab: [address] [address] TIBC 268 ug/dL 204-475 IRON 195 ug/dL H 40-160 Transferrin Saturation 72.8 H 20.0-50.0 Transferrin (TRF) 203 mg/dL 200-360 Nov 03, 2023 08:12 AM [facility] LIVER FUNCTION Specimen Type: SERUM No comment entered. Ordering Provider: PRINCESS BELL Report Released Date/Time: Nov 01, 2023 12:47 PM Reporting Lab: [address] [address] Performing Lab: [address] [address] PROTEIN,TOTAL 6.4 g/dL 6.0-8.3 ALBUMIN 4.1 g/dL 3.5-5.0 ALKALINE PHOSPHATASE 75 U/L 40-150 AST 22 U/L 5-34 ALT 35 U/L BILIRUBIN, TOTAL 0.6 mg/dL 0.2-1.2 Nov 03, 2023 08:12 AM [facility] CBC Specimen Type: BLOOD No comment entered. Ordering Provider: PRINCESS BELL Report Released Date/Time: Nov 01, 2023 12:47 PM Reporting Lab: [address] [address] Performing Lab: [address] [address] WBC 7.31 10*3/uL 4.50-11.00 RBC 5.14 10*6/uL [...] took place. Date/Time Current Smoking Status Comment [facility] Jan 12, 2023 09:00 AM VA-TOBACCO DOESNT USE WI 30 MIN WAKEUP [place] [facility] Tobacco Use History This section includes a history of the smoking, or tobacco-related health factors, that were collected on or before the date of the Encounter. The data comes from the [place] facility where the Encounter took place. 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[employer] [place] [facility] [place] [facility] Jan 12, 2023 09:00 AM VA-TOBACCO USE MED NO [place] [facility] [place] [facility] Jan 12, 2023 09:00 AM VA-TOBACCO USER EVERY DAY [facility] [place] [facility] Oct 23, 2021 08:00 AM VA-TOBACCO DOESNT USE WI 30 MIN WAKEUP [facility] [place] [facility] Oct 23, 2021 08:00 AM VA-TOBACCO USE 30 YEARS OR MORE [facility] [place] [facility] Oct 23, 2021 08:00 AM VA-TOBACCO USE ADVICE [facility] [place] [facility] Oct 23, 2021 08:00 AM 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 [employer] [place] [facility] [place] [facility] Oct 23, 2021 08:00 AM VA-TOBACCO USE MED NO [facility] [place] [facility] Oct 23, 2021 08:00 AM VA-TOBACCO USER EVERY DAY [facility] [place] [facility] Oct 29, 2020 10:00 AM VA-TOBACCO DOESNT USE WI 30 MIN WAKEUP [place] [facility] [place] [facility] Oct 29, 2020 10:00 AM VA-TOBACCO USE 30 YEARS OR MORE [facility] [place] [facility] Oct 29, 2020 10:00 AM VA-TOBACCO USE ADVICE [facility] [place] [place] [facility] Oct 29, 2020 10:00 AM 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 [employer] [place] [facility] [place] [facility] Oct 29, 2020 10:00 AM VA-TOBACCO USE MED NOTIFY PROVIDER [place] [facility] [place] [facility] Oct 29, 2020 10:00 AM VA-TOBACCO USER EVERY DAY [place] [facility] [place] [facility] Oct 10, 2019 11:00 AM VA-TOBACCO FORMER USER [facility] [place] [facility] Oct 10, 2019 11:00 AM VA-TOBACCO QUIT < 1 YEAR [facility] [place] [facility] Oct 26, 2018 07:55 AM VA-TOBACCO USE > 15 LESS THAN 30 YEARS [facility] [place] [place] [facility] Oct 26, 2018 07:55 AM VA-TOBACCO USE ADVICE [place] [facility] [place] [facility] Oct 26, 2018 07:55 AM 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 [facility] [place] [facility] Oct 26, 2018 07:55 AM VA-TOBACCO USE MED NO [place] [facility] [place] [place] [facility] Oct 26, 2018 07:55 AM VA-TOBACCO USE WI 30 MIN OF WAKEUP [place] [facility] [place] [place] [facility] Oct 26, 2018 07:55 AM VA-TOBACCO USER EVERY DAY [place] [facility] [place] [place] [facility] Aug 04, 2017 08:53 AM CURRENT SMOKER [facility] [place] [facility] Aug 04, 2017 08:53 AM V1-PT DECLINES REF TO TOBACCO CESS PRGM [place] [facility] [place] [place] [facility] Aug 04, 2017 08:53 AM V1-PT DECLINES TOBACCO CESSATION MEDS [facility] [place] [facility] Aug 04, 2017 08:53 AM V1-PT THINKING ABOUT QUIT TOBACCO USE [facility] [place] [facility] Jan 31, 2017 09:51 AM QUIT TOBACCO USE IN PAST YEAR 31 days [facility] [place] [facility] Jan 26, 2016 08:36 AM CURRENT SMOKER [facility] [place] [facility] Jan 26, 2016 08:36 AM V1-PT DECLINES REF TO TOBACCO CESS PRGM [facility] [place] [facility] Jan 26, 2016 08:36 AM V1-PT DECLINES TOBACCO CESSATION MEDS [facility] [place] [facility] Jan 26, 2016 08:36 AM V1-PT THINKING ABOUT QUIT TOBACCO USE [facility] [place] [facility] Feb 20, 2015 10:25 AM QUIT TOBACCO USE IN PAST YEAR [place] [facility] [place] [place] [facility] June 17, 2014 07:37 AM CURRENT SMOKER Reports being an off and on smoker -cigarettes [facility] [place] [facility] June 17, 2014 07:37 AM V1-PT DECLINES REF TO TOBACCO CESS PRGM [facility] [place] [facility] June 17, 2014 07:37 AM V1-PT DECLINES TOBACCO CESSATION MEDS [facility] [place] [facility] June 17, 2014 07:37 AM V1-PT THINKING ABOUT QUIT TOBACCO USE [facility] [place] [facility] Sep 14, 2011 09:51 AM CURRENT SMOKER less than a pack a day [facility] [place] [facility] Sep 14, 2011 09:51 AM V1-PT DECLINES REF TO TOBACCO CESS PRGM [facility] [place] [facility] Sep 14, 2011 09:51 AM V1-PT DECLINES TOBACCO CESSATION MEDS [facility] [place] [place] [facility] Sep 14, 2011 09:51 AM V1-PT THINKING ABOUT QUIT TOBACCO USE [facility] [place] [facility] Mar 09, 2010 09:32 AM CURRENT SMOKER 1 ppd [facility] [place] [facility] Mar 09, 2010 09:32 AM V1-PT DECLINES TOBACCO CESSATION MEDS [facility] [place] [facility] Mar 09, 2010 09:32 AM V1-PT REF TO NON-VA TOBACCO CESS PRGM [facility] Mar 09, 2010 09:32 AM V1-PT THINKING ABOUT QUIT TOBACCO USE [facility] Sep 29, 2009 02:07 PM V1-PT DECLINES REF TO TOBACCO CESS PRGM [facility] Sep 29, 2009 02:07 PM V1-PT DECLINES TOBACCO CESSATION MEDS [facility] Sep 29, 2009 02:07 PM V1-PT NOT INTERESTED IN QUIT TOBACCO USE [facility] Jan 29, 2009 11:00 AM CURRENT SMOKER 1 ppd [facility] Jan 29, 2009 11:00 AM V1-PT DECLINES TOBACCO CESSATION MEDS [facility] Jan 29, 2009 11:00 AM V1-PT READY TO QUIT TOBACCO USE [facility] Mar 17, 2005 08:36 AM CURRENT SMOKER [facility] Advance Directives: All historical and [...] Provider Source Nov 11, 2023 ADVANCE DIRECTIVE JACBO DEL TORO [facility] Encounter Notes: All associated encounter notes This section contains the clinical notes associated to the Encounter. Date/Time Encounter Note(s) Provider Source Nov 03, 2023 01:07 PM ADDENDUM: LOCAL TITLE: Addendum STANDARD TITLE: ADDENDUM DATE OF NOTE: NOV 03, 2023@13:07:23 ENTRY DATE: NOV 03, 2023@13:07:24 AUTHOR: PRINCESS BELL COSIGNER: URGENCY: STATUS: COMPLETED he gets phlebotomy every month at [facility]- i think it is ordered by us- but I can't find the form in [facility] or exactly where to fax lab results. ok to fax over his recent lab panel. /es/ PRINCESS BELL D.O. PHYSICIAN Signed: 11/03/2023 13:08 Receipt Acknowledged By: 11/04/2023 10:57 /natalie/ MARLEE CLINTON RN REGISTERED NURSE === --- Original Document --- 10/31/23 CCC: SCHEDULING ADMINISTRATION: Patient Demographics Patient Name: BRAD CUENCA Patient Primary Phone: [phone] Patient Primary [address]: [address] [place] [id number] Patient : 1950 Patient Age: 73 Caller/Recipient Relation to Patient: Self Administrative Administrative Note Reason: Other Administrative Note Comments: called to report that he does need blood work done. He needs to get his ferritin level checked. He would like the orders to be sent to [facility]. IMPORTANT: This note was created by [facility] staff. Please do not alert the staff member by adding them as a signer for future communications. Alerts are not monitored by this user. /es/ DOMINGO BOWLING 1 [facility] Signed: 10/31/2023 10:08 Receipt Acknowledged By: 11/01/2023 10:27 /es/ LIZETH ANDRES REGISTERED NURSE for TRU NEHAL 10/31/2023 10:56 /natalie/ MARLEE CLINTON RN REGISTERED NURSE 10/31/2023 ADDENDUM STATUS: COMPLETED Attempted to call , left VM with direct phone number for call back, VM was private, left info that any labs if ordered would need to be done at [place], we do not sent out to the hospital. Advised tat Dr. Bell was not ordering Feriting level and wondering what provider is order it and why. Will await return phone call /natalie/ MARLEE CLINTON RN REGISTERED NURSE Signed: 10/31/2023 10:57 11/04/2023 ADDENDUM STATUS: UNSIGNED You may not VIEW this UNSIGNED Addendum. FRANKEDWARDPRINCESS [place] [facility] [place] [facility] Oct 31, 2023 10:08 AM ADMINISTRATIVE NOTE: LOCAL TITLE: CCC: SCHEDULING ADMINISTRATION STANDARD TITLE: ADMINISTRATIVE NOTE DATE OF NOTE: OCT 31, 2023@10:08:12 ENTRY DATE: OCT 31, 2023@10:08:12 AUTHOR: DOMINGO GOINS EXP COSIGNER: URGENCY: STATUS: COMPLETED CCC: SCHEDULING ADMINISTRATION Has ADDENDA Patient Demographics Patient Name: BRAD CUENCA Patient Primary Phone: [phone] Patient Primary [address] [address] [place] [id number] Patient : 1950 Patient Age: 73 Caller/Recipient Relation to Patient: Self Administrative Administrative Note Reason: Other Administrative Note Comments: called to report that he does need blood work done. He needs to get his ferritin level checked. He would like the orders to be sent to [facility]. IMPORTANT: This note was created by [facility] staff. Please do not alert the staff member by adding them as a signer for future communications. Alerts are not monitored by this user. /natalie/ DOMINGO BOWLING 1 [facility] Signed: 10/31/2023 10:08 Receipt Acknowledged By: 11/01/2023 10:27 /es/ LIZETH ANDRES REGISTERED NURSE for TRU NEHAL 10/31/2023 10:56 /es/ MARLEE CLINTON RN REGISTERED NURSE 10/31/2023 ADDENDUM STATUS: COMPLETED Attempted to call , left VM with direct phone number for call back, VM was private, left info that any labs if ordered would need to be done at [place], we do not sent out to the hospital. Advised tat Dr. Bell was not ordering Feriting level and wondering what provider is order it and why. Will await return phone call /natalie/ MARLEE CLINTON RN REGISTERED NURSE Signed: 10/31/2023 10:57 11/03/2023 ADDENDUM STATUS: COMPLETED he gets phlebotomy every month at [facility]- i think it is ordered by us- but I can't find the form in [facility] or exactly where to fax lab results. ok to fax over his recent lab panel. /natalie/ PRINCESS BELL D.O. PHYSICIAN Signed: 11/03/2023 13:08 Receipt Acknowledged By: 11/04/2023 10:57 /natalie/ MARLEE CLINTON RN REGISTERED NURSE 11/04/2023 ADDENDUM STATUS: COMPLETED PCP to fax to [facility] /natalie/ MRALEE CLINTON, SHERYL REGISTERED NURSE Signed: 11/04/2023 10:57 DOMINGO GOINS [facility]
--- OUTSIDE RECORDS SUMMARY | 2024-02-13 13:03 | XMS_ITS ---
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 Date/Time Encounter Type Encounter Description Reason Pro vider Source Sep 05, 2023 03:20 PM Outpatient Encounter PRIMARY CARE/MEDICINE [...] 20 appointments. The data comes from all [place] treatment facilities. Appointment Date/Time Appointment Type Appointme nt Facility Name Nov 11, 2023 09:00 AM AMBULATORY - MEDICINE [place] [facility] [place] [facility] Nov 25, 2023 09:30 AM AMBULATORY - MEDICINE [place] [facility] [place] [facility] Nov 29, 2023 09:00 AM AMBULATORY - MEDICINE [place] [facility] [place] [facility] Feb 21, 2024 09:45 AM AMBULATORY - MEDICINE [place] [facility] [place] [facility] Feb 27, 2024 10:00 AM AMBULATORY - MEDICINE [facility] [place] [facility] Social History: Smoking Status [...] took place. Date/Time Current Smoking Status Comment [facility] Jan 12, 2023 09:00 AM VA-TOBACCO USER EVERY DAY [facility] Tobacco Use History This section includes a history of the smoking, or tobacco-related health factors, that were collected on or before the date of the Encounter. The data comes from the [place] facility where the Encounter took place. Date/Time Smoking Status/Tobac co Use Comment Facility Jan 12, 2023 09:00 AM VA-TOBACCO USE 30 YEARS OR MORE [facility] [place] [facility] Jan 12, 2023 09:00 AM VA-TOBACCO USE ADVICE [facility] [place] [facility] Jan 12, 2023 09:00 AM VA-TOBACCO USE RESEARCH TECH NO [facility] [place] [facility] Jan 12, 2023 09:00 AM VA-TOBACCO USE MED NO [facility] [place] [facility] Jan 12, 2023 09:00 AM VA-TOBACCO USER EVERY DAY [facility] [place] [facility] Oct 23, 2021 08:00 AM VA-TOBACCO DOESNT USE WI 30 MIN WAKEUP [facility] [place] [facility] Oct 23, 2021 08:00 AM VA-TOBACCO USE 30 YEARS OR MORE [facility] [place] [facility] Oct 23, 2021 08:00 AM VA-TOBACCO USE ADVICE [facility] [place] [facility] Oct 23, 2021 08:00 AM VA-TOBACCO USE RESEARCH TECH NO [facility] [place] [facility] Oct 23, 2021 08:00 AM VA-TOBACCO USE MED NO [facility] [place] [facility] Oct 23, 2021 08:00 AM VA-TOBACCO USER EVERY DAY [facility] [place] [facility] Oct 29, 2020 10:00 AM VA-TOBACCO DOESNT USE WI 30 MIN WAKEUP [facility] [place] [facility] Oct 29, 2020 10:00 AM VA-TOBACCO USE 30 YEARS OR MORE [facility] [place] [facility] Oct 29, 2020 10:00 AM VA-TOBACCO USE ADVICE [facility] [place] [facility] Oct 29, 2020 10:00 AM VA-TOBACCO USE RESEARCH TECH YES [facility] [place] [facility] Oct 29, 2020 10:00 AM VA-TOBACCO USE MED NOTIFY PROVIDER [facility] [place] [facility] Oct 29, 2020 10:00 AM VA-TOBACCO USER EVERY DAY [facility] [place] [facility] Oct 10, 2019 11:00 AM VA-TOBACCO FORMER USER [facility] [place] [facility] Oct 10, 2019 11:00 AM VA-TOBACCO QUIT < 1 YEAR [facility] [place] [facility] Oct 26, 2018 07:55 AM VA-TOBACCO USE > 15 LESS THAN 30 YEARS [facility] [place] [facility] Oct 26, 2018 07:55 AM VA-TOBACCO USE ADVICE [facility] [place] [facility] Oct 26, 2018 07:55 AM VA-TOBACCO USE RESEARCH TECH NO [facility] [place] [facility] Oct 26, 2018 07:55 AM VA-TOBACCO USE MED NO [facility] [place] [facility] Oct 26, 2018 07:55 AM VA-TOBACCO USE WI 30 MIN OF WAKEUP [facility] [place] [facility] Oct 26, 2018 07:55 AM VA-TOBACCO USER EVERY DAY [facility] [place] [facility] Aug 04, 2017 08:53 AM CURRENT SMOKER [facility] [place] [facility] Aug 04, 2017 08:53 AM V1-PT DECLINES REF TO TOBACCO CESS PRGM [facility] [place] [facility] Aug 04, 2017 08:53 AM V1-PT DECLINES TOBACCO CESSATION MEDS [facility] [place] [facility] Aug 04, 2017 08:53 AM V1-PT THINKING ABOUT QUIT TOBACCO USE [facility] [place] [facility] Jan 31, 2017 09:51 AM QUIT TOBACCO USE IN PAST YEAR 31 days [facility] [place] [facility] Jan 26, 2016 08:36 AM CURRENT SMOKER [facility] [place] [facility] Jan 26, 2016 08:36 AM V1-PT DECLINES REF TO [facility]BACCO [facility]ESS [facility] [place] [facility] Jan 26, 2016 08:36 AM V1-PT DECLINES TOBACCO CESSATION MEDS [facility] [place] [facility] Jan 26, 2016 08:36 AM V1-PT THINKING ABOUT QUIT TOBACCO USE [facility] [place] [facility] Feb 20, 2015 10:25 AM QUIT TOBACCO USE IN PAST YEAR [facility] [place] [facility] June 17, 2014 07:37 AM CURRENT SMOKER Reports being an off and on smoker -cigarettes [facility] [place] [facility] June 17, 2014 07:37 AM V1-PT DECLINES REF TO TOBACCO CESS PRGM [facility] [place] [place] [facility] June 17, 2014 07:37 AM V1-PT DECLINES TOBACCO CESSATION MEDS [facility] [place] [facility] June 17, 2014 07:37 AM V1-PT THINKING ABOUT QUIT TOBACCO USE [facility] [place] [facility] Sep 14, 2011 09:51 AM CURRENT SMOKER less than a pack a day [facility] [place] [facility] Sep 14, 2011 09:51 AM V1-PT DECLINES REF TO TOBACCO CESS [facility] [place] [facility] Sep 14, 2011 09:51 AM V1-PT DECLINES TOBACCO CESSATION MEDS [facility] [place] [facility] Sep 14, 2011 09:51 AM V1-PT THINKING ABOUT QUIT TOBACCO USE [facility] Mar 09, 2010 09:32 AM CURRENT SMOKER 1 ppd [facility] Mar 09, 2010 09:32 AM V1-PT DECLINES TOBACCO CESSATION MEDS [facility] Mar 09, 2010 09:32 AM V1-PT REF TO NON-VA TOBACCO CESS PRGM [facility] Mar 09, 2010 09:32 AM V1-PT THINKING ABOUT QUIT TOBACCO USE [facility] Sep 29, 2009 02:07 PM V1-PT DECLINES REF TO TOBACCO CESS PRGM [facility] Sep 29, 2009 02:07 PM V1-PT DECLINES TOBACCO CESSATION MEDS [facility] Sep 29, 2009 02:07 PM V1-PT NOT INTERESTED IN QUIT TOBACCO USE [facility] Jan 29, 2009 11:00 AM CURRENT SMOKER 1 ppd [facility] Jan 29, 2009 11:00 AM V1-PT DECLINES TOBACCO CESSATION MEDS [facility] Jan 29, 2009 11:00 AM V1-PT READY TO QUIT [facility]BACCO [facility] Mar 17, 2005 08:36 AM CURRENT SMOKER [facility] Advance Directives: All historical and current [...] 11, 2023 ADVANCE DIRECTIVE JACOB DEL TORO [facility] Encounter Notes: All associated encounter notes This section contains the clinical notes associated to the Encounter. Date/Time Encounter Note(s) Provider Source Sep 05, 2023 03:20 PM NURSING NONVA NOTE : LOCAL TITLE: OUTSIDE LAB RESULTS STANDARD TITLE: NURSING NONVA NOTE DATE OF NOTE: SEP 05, 2023@15:20 ENTRY DATE: SEP 05, 2023@15:21:09 AUTHOR: YANN PARK EXP COSIGNER: URGENCY: STATUS: COMPLETED Outside Lab Values Date of Lab draw: Aug Location of lab tests: [facility] Notated Outside Lab Values: ADDITIONAL INFORMATION RELEVENT TO THE RECORDING OF OUTSIDE LABS: THER HEMOGLOBIN 16.2 THER HEMATOCRIT TEST NOT PERFORMED [address]RAWN. /natalie/ YANN PARK Registered Nurse Signed: 09/05/2023 15:23 YANN PARK [facility]
--- OUTSIDE RECORDS SUMMARY | 2024-02-13 13:03 | XMS_ITS | Encounter Summary ---
Author Name [facility] [place] Organization [facility] [place] Address [address] [place] [address] Care Team Providers Care Learning And Development Consultant Name Role Phone PRINCESS RAMON Primary Care [...] PART A Jul 15, 2013 PART A [id number] BRAD CUENCA JR PATIENT MEDICARE (WNR) MEDICARE (M) PART B Jul 15, 2013 PART B [id number] BRAD CUENCA JR PATIENT Selected Encounter This section includes the information on record at [place] for the Encounter. Date/Time Encounter Type Encounter Description Reason Pro vider Source Jul 26, 2023 12:00 AM Outpatient Encounter EVENT (HISTORICAL) IHE Encounter Template Text not used by [place] Plan of Treatment: Future Appointments (+ 6 [...] 11, 2023 09:00 AM AMBULATORY - MEDICINE [place] [facility] [place] [facility] Nov 25, 2023 09:30 AM AMBULATORY - MEDICINE [place] [facility] [place] [facility] Nov 29, 2023 09:00 AM AMBULATORY - MEDICINE [facility] Social History: Smoking Status (Most current) [...] 2023 09:00 AM VA-TOBACCO USER EVERY DAY [facility] Tobacco Use History This section includes a history of the smoking, or tobacco-related health factors, that were collected on or before the date of the Encounter. The data comes from the [place] facility where the Encounter took place. Date/Time Smoking Status/Tobac co Use Comment Facility Jan 12, 2023 09:00 AM VA-TOBACCO USE 30 YEARS OR MORE [place] [facility] [place] [facility] Jan 12, 2023 09:00 AM VA-TOBACCO USE ADVICE [place] [facility] Jan 12, 2023 09:00 AM VA-TOBACCO USE PRINTED CIRCUIT BOARDS BEVELER NO [place] [facility] [place] [facility] Jan 12, 2023 09:00 AM VA-TOBACCO USE MED NO [place] [facility] [place] [facility] Jan 12, 2023 09:00 AM VA-TOBACCO USER EVERY DAY [place] [facility] [place] [facility] Oct 23, 2021 08:00 AM VA-TOBACCO DOESNT USE WI 30 MIN WAKEUP [place] [facility] [place] [facility] Oct 23, 2021 08:00 AM VA-TOBACCO USE 30 YEARS OR MORE [place] [facility] [place] [facility] Oct 23, 2021 08:00 AM VA-TOBACCO USE ADVICE [facility] [place] [facility] Oct 23, 2021 08:00 AM VA-TOBACCO USE PRINTED CIRCUIT BOARDS BEVELER NO [facility] [place] [facility] Oct 23, 2021 08:00 AM VA-TOBACCO USE MED NO [facility] [place] [facility] Oct 23, 2021 08:00 AM VA-TOBACCO USER EVERY DAY [facility] [place] [facility] Oct 29, 2020 10:00 AM VA-TOBACCO DOESNT USE WI 30 MIN WAKEUP [facility] [place] [facility] Oct 29, 2020 10:00 AM VA-TOBACCO USE 30 YEARS OR MORE [facility] [place] [facility] Oct 29, 2020 10:00 AM VA-TOBACCO USE ADVICE [facility] [place] [facility] Oct 29, 2020 10:00 AM VA-TOBACCO USE PRINTED CIRCUIT BOARDS BEVELER YES [place] [facility] [place] [facility] Oct 29, 2020 10:00 AM VA-TOBACCO USE MED NOTIFY PROVIDER [place] [facility] [place] [facility] Oct 29, 2020 10:00 AM VA-TOBACCO USER EVERY DAY [place] [facility] [place] [facility] Oct 10, 2019 11:00 AM VA-TOBACCO FORMER USER [facility] [place] [facility] Oct 10, 2019 11:00 AM VA-TOBACCO QUIT < 1 YEAR [facility] [place] [facility] Oct 26, 2018 07:55 AM VA-TOBACCO USE > 15 LESS THAN 30 YEARS [facility] [place] [facility] Oct 26, 2018 07:55 AM VA-TOBACCO USE ADVICE [facility] [place] [facility] Oct 26, 2018 07:55 AM VA-TOBACCO USE PRINTED CIRCUIT BOARDS BEVELER NO [facility] [place] [facility] Oct 26, 2018 07:55 AM VA-TOBACCO USE MED NO [facility] [place] [facility] Oct 26, 2018 07:55 AM VA-TOBACCO USE WI 30 MIN OF WAKEUP [place] [facility] [place] [facility] Oct 26, 2018 07:55 AM VA-TOBACCO USER EVERY DAY [place] [facility] [place] [facility] Aug 04, 2017 08:53 AM CURRENT SMOKER [facility] [place] [facility] Aug 04, 2017 08:53 AM V1-PT DECLINES REF TO TOBACCO CESS PRGM [facility] [place] [facility] Aug 04, 2017 08:53 AM V1-PT DECLINES TOBACCO CESSATION MEDS [facility] [place] [facility] Aug 04, 2017 08:53 AM V1-PT THINKING ABOUT QUIT TOBACCO USE [facility] [place] [facility] Jan 31, 2017 09:51 AM QUIT TOBACCO USE IN PAST YEAR 31 days [facility] [place] [facility] Jan 26, 2016 08:36 AM CURRENT SMOKER [facility] [place] [facility] Jan 26, 2016 08:36 AM V1-PT DECLINES REF TO TOBACCO CESS PRGM [facility] [place] [place] [facility] Jan 26, 2016 08:36 AM V1-PT DECLINES TOBACCO CESSATION MEDS [facility] [place] [facility] Jan 26, 2016 08:36 AM V1-PT THINKING ABOUT QUIT TOBACCO USE [facility] [place] [facility] Feb 20, 2015 10:25 AM QUIT TOBACCO USE IN PAST YEAR [facility] [place] [facility] June 17, 2014 07:37 AM CURRENT SMOKER Reports being an off and on smoker -cigarettes [facility] [place] [facility] June 17, 2014 07:37 AM V1-PT DECLINES REF TO TOBACCO CESS PRGM [facility] [place] [facility] June 17, 2014 07:37 AM V1-PT DECLINES TOBACCO CESSATION MED[facility] [place] [place] [facility] June 17, 2014 07:37 AM V1-PT THINKING ABOUT QUIT TOBACCO USE [facility] [place] [facility] Sep 14, 2011 09:51 AM CURRENT SMOKER less than a pack a day [facility] [place] [facility] Sep 14, 2011 09:51 AM V1-PT DECLINES REF TO TOBACCO CESS PRGM [facility] [place] [facility] Sep 14, 2011 09:51 AM V1-PT DECLINES TOBACCO CESSATION MEDS [facility] [place] [facility] Sep 14, 2011 09:51 AM V1-PT THINKING ABOUT QUIT TOBACCO USE [facility] [place] [facility] Mar 09, 2010 09:32 AM CURRENT SMOKER 1 ppd [facility] [place] [facility] Mar 09, 2010 09:32 AM V1-PT DECLINES TOBACCO CESSATION [facility] Mar 09, 2010 09:32 AM V1-PT REF TO NON-VA TOBACCO CESS PRGM [facility] Mar 09, 2010 09:32 AM V1-PT THINKING ABOUT QUIT TOBACCO USE [facility] Sep 29, 2009 02:07 PM V1-PT DECLINES REF TO TOBACCO CESS PRGM [facility] Sep 29, 2009 02:07 PM V1-PT DECLINES TOBACCO CESSATION [facility] Sep 29, 2009 02:07 PM V1-PT NOT INTERESTED IN QUIT TOBACCO USE [facility] Jan 29, 2009 11:00 AM CURRENT SMOKER 1 ppd [facility] Jan 29, 2009 11:00 AM V1-PT DECLINES TOBACCO CESSATION [facility] Jan 29, 2009 11:00 AM V1-PT READY TO QUIT TOBACCO USE [facility] Mar 17, 2005 08:36 AM CURRENT SMOKER [facility] Advance Directives: All historical and current [...] 11, 2023 ADVANCE DIRECTIVE JACOB DEL TORO [place] [facility] Encounter Notes: All associated encounter notes This section contains the clinical notes associated to the Encounter. Date/Time Encounter Note(s) Provider Source Jul 26, 2023 12:00 AM NONVA DIAGNOSTIC Franck [facility] REPORT: LOCAL TITLE: NON-VA DIAGNOSTICS STANDARD TITLE: NONVA DIAGNOSTIC STUDY REPORT DATE OF NOTE: JUL 26, 2023 ENTRY DATE: AUG 09, 2023@10:09:43 AUTHOR: KENTON VARGAS EXP COSIGNER: URGENCY: STATUS: COMPLETED VistA Imaging - Scanned Document SCANNED DOCUMENT SIGNATURE NOT REQUIRED Electronically Filed: 08/09/2023 by: KENTON VARGAS FACULTY RESEARCH PHYSICIAN KENTON VARGAS [facility]
--- OUTSIDE RECORDS SUMMARY | 2024-02-13 13:04 | XMS_ITS ---
Author Name [facility] [place] [facility] [place] Address [address] [place] [address] Care Team Providers Care Director Of Tax Services Name Role Phone PRINCESS RAMON Primary Care [...] PART B Jul 15, 2013 PART B [id number] [facility] [phone] BRAD CUENCA JR PATIENT MEDICARE (WNR) MEDICARE (M) PART A Jul 15, 2013 PART A [id number] BRAD CUENCA JR PATIENT Selected Encounter This section includes the information on record at [place] for the Encounter. Date/Time Encounter Type Encounter Description Reason Provider Source Nov 29, 2023 09:00 AM OFFICE O/P NEW MOD 45 MIN DERMATOLOGY ICD-10-CM L57.0 Actinic keratosis JELLY ESTEBAN IHRajwinder Encounter Template Text not used by [facility] Assessments - Encounter Diagnoses This section includes the primary and secondary diagnoses documented for the Encounter. Date/Time Primary/Secondary Diagnosis Diagnosis Name Provider Source Nov 29, 2023 10:04 AM PRIMARY Actinic keratosis DAVID ESTEBAN [facility] [place] [facility] Nov 29, 2023 10:04 AM SECONDARY Hemangioma of skin and subcutaneous tissue DAVID ESTEBAN [facility] [place] [facility] Nov 29, 2023 10:04 AM SECONDARY Neoplasm of uncertain behavior of [facility] [place] [facility] Nov 29, 2023 10:04 AM SECONDARY Other hypertrophic disorders of the [facility] [place] [facility] Nov 29, 2023 10:04 AM SECONDARY Other melanin hyperpigmentation DAVID ESTEBAN [facility] [place] [facility] Nov 29, 2023 10:04 AM SECONDARY Other seborrheic keratosis [facility] [place] [facility] Nov 29, 2023 10:04 AM SECONDARY Personal history of other malignant neoplasm of skin [facility] [place] [facility] Nov 29, 2023 10:04 AM SECONDARY Xerosis cutis [facility] [place] [facility] Plan of Treatment: Future Appointments (+ 6 months) and Future Tests (+/- 45 days) The Plan of Treatment section includes future care activities for the patient [facility] [place] [facility] This section includes future appointments and future orders which are active, pending or scheduled. Future Appointments This section includes appointments that were scheduled to occur 6 months from the date of the Encounter, up to a maximum of 20 appointments. The data comes from all [place] treatment facilities. Appointment Date/Time Appointment Type Appointme nt Facility Name Feb 21, 2024 09:45 AM AMBULATORY [place]ICINE [place] [facility] Feb 27, 2024 10:00 AM AMBULATORY - MEDICINE [place] [facility] [place] [facility] Mar 20, 2024 09:00 AM AMBULATORY - MEDICINE [place] [facility] [place] [facility] May 10, 2024 09:30 AM AMBULATORY - NONE [place] [facility] [place] [facility] May 10, 2024 10:30 AM [facility] Active, Pending, and Scheduled Orders This section includes a listing of several types of active, pending, and scheduled orders, including clinic medications orders, diagnostic test orders, procedure orders and consult orders; where the start date of the order is 45 days before the date of the Encounter or 45 days after the date of theEncounter. The data comes from all [place] treatment facilities. Test Date/Time Test Type Test Details Facility Name Nov 11, 2023 12:03 PM Consult Order [facility] Commuter Train Operator's Choice [facility] Jan 05, 2024 08:22 AM Consult Order [facility] Commuter Train Operator's Choice [facility] Lab Results: +/- 30 days of the encounter This section includes the Chemistry and Hematology Lab Results on record with [place] for the patient. Radiology Reports and Pathology Reports are provided separately, in subsequent sections. Lab Results This section contains the Chemistry/Hematology Results that were resulted 30 days before or 30 daysafter the date of the Encounter. Date/Time Source Result Type Result - Unit Interpretation Reference Range Comment Nov 03, 2023 08:12 AM [facility] FERRITIN Specimen Type: SERUM No comment entered. Ordering Provider: PRINCESS RAMON Report Released Date/Time: Nov 01, 2023 12:47 PM Reporting Lab: [facility] [address] [phone] Performing Lab: [address] [address] FERRITIN 144 ng/mL 20-300 Nov 03, 2023 08:12 AM [facility] IRON & TIBC PANEL Specimen Type: SERUM No comment entered. Ordering Provider: PRINCESS RAMON Report Released Date/Time: Nov 01, 2023 12:47 PM Reporting Lab: [facility] [address] [address] Performing Lab: [facility] [address] TIBC 268 ug/dL 204-475 IRON 195 ug/dL H 40-160 Transferrin Saturation 72.8 H 20.0-50.0 Transferrin (TRF) 203 mg/dL 200-360 Nov 03, 2023 08:12 AM [facility] LIVER FUNCTION Specimen Type: SERUM No comment entered. Ordering Provider: PRINCESS RAMON Report Released Date/Time: Nov 01, 2023 12:47 PM Reporting Lab: [facility] [address] [address] Performing Lab: [address] [address] PROTEIN,TOTAL 6.4 g/dL 6.0-8.3 ALBUMIN 4.1 g/dL 3.5-5.0 ALKALINE PHOSPHATASE 75 U/L 40-150 AST 22 U/L 5-34 ALT 35 U/L BILIRUBIN, TOTAL 0.6 mg/dL 0.2-1.2 Nov 03, 2023 08:12 AM [facility] CBC Specimen Type: BLOOD No comment entered. Ordering Provider: PRINCESS RAMON Report Released Date/Time: Nov 01, 2023 12:47 PM Reporting Lab: [facility] [address] [address] Performing Lab: [address] [address] WBC 7.31 10*3/uL 4.50-11.00 RBC 5.14 10*6/uL [...] and tobacco- related health factors from the [place] facility where the Encounter took place. Current Smoking Status This section includes the most current smoking, or tobacco-related health factor, from the [place] facility where the Encounter took place. Date/Time Current Smoking Status Comment Facil ity Jan 12, 2023 09:00 AM VA-TOBACCO USER EVERY DAY [place] [facility] Tobacco Use History This section includes a history of the smoking, or tobacco-related health factors, that were collected on or before the date of the Encounter. The data comes from the [facility] where the Encounter took place. Date/Time Smoking Status/Tobac co Use Comment Facility Jan 12, 2023 09:00 AM VA-TOBACCO USE 30 YEARS OR MORE [facility] [place] [facility] Jan 12, 2023 09:00 AM VA-TOBACCO USE ADVICE [place] [facility] [place] [facility] Jan 12, 2023 09:00 AM VA-TOBACCO USE CUPOLA MECHANIC NO [facility] [place] [facility] Jan 12, 2023 09:00 AM VA-TOBACCO USE MED NO [place] [facility] [place] [facility] Jan 12, 2023 09:00 AM VA-TOBACCO USER EVERY DAY [place] [facility] [facility] Oct 23, 2021 08:00 AM VA-TOBACCO DOESNT USE WI 30 MIN WAKEUP [place] [facility] [place] [facility] Oct 23, 2021 08:00 AM VA-TOBACCO USE 30 YEARS OR MORE [place] [facility] [place] [facility] Oct 23, 2021 08:00 AM VA-TOBACCO USE ADVICE [place] [facility] [place] [facility] Oct 23, 2021 08:00 AM VA-TOBACCO USE CUPOLA MECHANIC NO [place] [facility] [place] [facility] Oct 23, 2021 08:00 AM VA-TOBACCO USE MED NO [place] [facility] [place] [facility] Oct 23, 2021 08:00 AM VA-TOBACCO USER EVERY DAY [place] [facility] [place] [facility] Oct 29, 2020 10:00 AM VA-TOBACCO DOESNT USE WI 30 MIN WAKEUP [place] [facility] [place] [facility] Oct 29, 2020 10:00 AM VA-TOBACCO USE 30 YEARS OR MORE [place] [facility] [place] [facility] Oct 29, 2020 10:00 AM VA-TOBACCO USE ADVICE [place] [facility] [place] [facility] Oct 29, 2020 10:00 AM VA-TOBACCO USE CUPOLA MECHANIC YES [facility] [place] [facility] Oct 29, 2020 10:00 AM VA-TOBACCO USE MED NOTIFY PROVIDER [facility] Oct 29, 2020 10:00 AM VA-TOBACCO USER EVERY DAY [place] [facility] Oct 10, 2019 11:00 AM VA-TOBACCO FORMER USER [place] [facility] [facility] Oct 10, 2019 11:00 AM VA-TOBACCO QUIT < 1 YEAR [place] [facility] [facility] Oct 26, 2018 07:55 AM VA-TOBACCO USE > 15 LESS THAN 30 YEARS [place] [facility] [place] [facility] Oct 26, 2018 07:55 AM VA-TOBACCO USE ADVICE [facility] [place] [facility] Oct 26, 2018 07:55 AM VA-TOBACCO USE CUPOLA MECHANIC NO [place] [facility] [place] [facility] Oct 26, 2018 07:55 AM VA-TOBACCO USE MED NO [place] [facility] [place] [facility] Oct 26, 2018 07:55 AM VA-TOBACCO USE WI 30 MIN OF WAKEUP [place] [facility] [facility] Oct 26, 2018 07:55 AM VA-TOBACCO USER EVERY DAY [place] [facility] [facility] Aug 04, 2017 08:53 AM CURRENT SMOKER [place] [facility] Aug 04, 2017 08:53 AM V1-PT DECLINES REF TO TOBACCO CESS PRGM [place] [facility] Aug 04, 2017 08:53 AM V1-PT DECLINES TOBACCO CESSATION MEDS [place] [facility] [facility] Aug 04, 2017 08:53 AM V1-PT THINKING ABOUT QUIT TOBACCO USE [place] [facility] Jan 31, 2017 09:51 AM QUIT TOBACCO USE IN PAST YEAR 31 days [place] [facility] [facility] Jan 26, 2016 08:36 AM CURRENT SMOKER [place] [facility] Jan 26, 2016 08:36 AM V1-PT DECLINES REF TO TOBACCO CESS PRGM [place] [facility] Jan 26, 2016 08:36 AM V1-PT DECLINES TOBACCO CESSATION MEDS [place] [facility] Jan 26, 2016 08:36 AM V1-PT THINKING ABOUT QUIT TOBACCO USE [facility] [place] [facility] Feb 20, 2015 10:25 AM QUIT TOBACCO USE IN PAST YEAR [facility] [place] [facility] June 17, 2014 07:37 AM CURRENT SMOKER Reports being an off and on smoker -cigarettes [facility] [place] [facility] June 17, 2014 07:37 AM V1-PT DECLINES REF TO TOBACCO CESS PRGM [facility] [place] [facility] June 17, 2014 07:37 AM V1-PT DECLINES TOBACCO CESSATION [facility] [place] [facility] June 17, 2014 07:37 AM V1-PT THINKING ABOUT QUIT TOBACCO USE [facility] Sep 14, 2011 09:51 AM CURRENT SMOKER less than a pack a day [facility] Sep 14, 2011 09:51 AM V1-PT DECLINES REF TO TOBACCO CESS PRGM [facility] Sep 14, 2011 09:51 AM V1-PT DECLINES TOBACCO CESSATION MEDS [facility] Sep 14, 2011 09:51 AM V1-PT THINKING ABOUT QUIT TOBACCO USE [facility] Mar 09, 2010 09:32 AM CURRENT SMOKER 1 ppd [facility] Mar 09, 2010 09:32 AM V1-PT DECLINES TOBACCO CESSATION MEDS [facility] Mar 09, 2010 09:32 AM V1-PT REF TO NON-VA TOBACCO CESS PRGM [facility] Mar 09, 2010 09:32 AM V1-PT THINKING ABOUT QUIT TOBACCO USE [facility] [place] [facility] Sep 29, 2009 02:07 PM V1-PT DECLINES REF TO TOBACCO CESS PRGM [facility] Sep 29, 2009 02:07 PM V1-PT DECLINES TOBACCO CESSATION MEDS [facility] Sep 29, 2009 02:07 PM V1-PT NOT INTERESTED IN QUIT TOBACCO USE [facility] Jan 29, 2009 11:00 AM CURRENT SMOKER 1 ppd [place] [facility] [facility] Jan 29, 2009 11:00 AM V1-PT DECLINES [facility]ACCO [facility]ESSATION [facility] Jan 29, 2009 11:00 AM V1-PT READY TO QUIT TOBACCO USE [facility] Mar 17, 2005 08:36 AM CURRENT SMOKER [facility] Advance Directives: All historical and current Section Date Range: From patient's date of to the date document was created. This section includes ALL of a patient's completed or amended [place] Advance and Rescinded Directives. The entries below indicate that a directive exists for the patient, but an actual copy is not included with this document. The data comes from all [place] facilities. Date Advance Directives Provider Source Nov 11, 2023 ADVANCE DIRECTIVE JACOB DEL TORO [facility] Encounter Notes: All associated encounter notes This section contains the clinical notes associated to the Encounter. Date/Time Encounter Note(s) Provider Source Nov 29, 2023 09:07 AM DERMATOLOGY CONSULT: LOCAL TITLE: CONSULT REPORT/DERMATOLOGY STANDARD TITLE: DERMATOLOGY CONSULT DATE OF NOTE: NOV 29, 2023@09:07 ENTRY DATE: NOV 29, 2023@09:08:24 AUTHOR: ALECIA ESTEBAN EXP COSIGNER: URGENCY: STATUS: COMPLETED NOV 29, 2023 BRAD CUENCA Jul 75 PATIENT PHONE - Patient here for: NEW CONSULT CHIEF COMPLAINT: 'Actinic Keratosis' per consule HPI: Zimmerman reports arms, legs, ankles with white, ramsay and brown crusty bumps. Also with a lesion on abd and on face. Reports none of the lesions are painful or itchy. Zimmerman denies any other new/changing/bleeding/non-heali ng lesions. Reviewed records in [facility] (all available). 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 Active Outpatient Medications (including Supplies): Active Outpatient [...] BREATHING - RINSE MOUTH AFTER USE 5) LIDOCAINE 5% PATCH APPLY 1 PATCH TOPICALLY ONCE DAILY ACTIVE FOR NERVE PAIN (LEAVE PATCH ON FOR 12 HOURS, THEN REMOVE PATCH) 6) TAMSULOSIN HCL 0.4MG CAP TAKE ONE CAPSULE BY MOUTH AT ACTIVE BEDTIME 7) TIOTROPIUM 2.5MCG/ACTUAT 60D ORAL INHL INHALE 2 PUFFS ACTIVE BY MOUTH ONCE DAILY PHYSICAL EXAM: Cline Skintype II General-AxOx3, NAD, pleasant, breathing unlabored, speech clear Cutaneous examination, as permitted by the patient, including scalp, face, eyes, ears, neck, chest, back, abdomen, arms, hands, fingers, legsPertinent findings per below: -well healed surgical scar noted to R upper back, no evidence of abnormal pigmentation or lesion -Multiple scattered stuck-on appearing waxy moralez and brown papules and plaques with noted milia-like cysts, comedo-like openings and fissures/ridges on dermoscopy. -Scattered uniformly pigmented light moralez and brown jagged macules in sun distributed areas. -Mutiple discrete, soft, fleshy, skin-tone pedunculated papules around the neck and bilateral axillae, <5mm. -Scattered curry-red dome shaped papules on chest/back with noted lacunae and septae noted on dermoscopy -A few thin erythematous gritty papules noted to R mid forehead and L medial cheek -R abd with an 11mm exophytic hyperkeratotic plaque with prominent vessels on peripheral -generalized xerosis Diagnosis/Plan: #Actinic Keratosis: -Zimmerman educated on relationship to squamous cell carcinoma. -Treatment options discussed. -Liquid nitrogen cryotherapy performed as a destructive method. -Verbal consent given. -Liquid nitrogen (2 cycles x 10-15 sec) x #2 lesions performed. -Side effects including but not limited to redness, crusting, swelling, blistering, hypopigmentation and scarring discussed. -Photoprotection discussed. #Personal History of Non-Melanotic Skin Cancer: -No evidence of recurrence at surgical site -Full Body Skin Exam advised at least yearly -Photoprotection discussed -Patient instructed to follow up in clinic for any concerning lesions or changes #NUB -Location: R abd -DDx: AK vs SCCIS vs SCC vs SK vs ISK vs verruca -Treatment options discussed. Biopsy and excision declined. -Liquid nitrogen cryotherapy performed as a destructive method. -Verbal consent given. -Liquid nitrogen (2 cycles x 10-20 sec) x #1 lesions performed. -Side effects including but not limited to redness, crusting, swelling, blistering, hypopigmentation and scarring discussed. -Photoprotection discussed. - advised that if lesion persists or becomes symptomatic to notify clinic. #Seborrheic Keratoses: -The Zimmerman was educated regarding the benign nature, but to return with any growth, change or symptoms in area. #Skin Tag: -The was educated regarding the benign nature, but to return with any growth, change or symptoms in area. #Solar Lentigines -The was educated regarding the benign nature and relation to chronic sun exposure, but to return with any growth, change or symptoms in area. -Photoprotection discussed. #Curry Angiomas: -The was educated regarding the benign nature, but to return with any growth, change or symptoms in area. #Xerosis -Advised liberal emollients RTC 1 yr, sooner PRN * educated to RTC cristobal if any new, changing, non-healing, or symptomatic lesions. * Education on sun protection and avoidance strategies was provided. * Encouraged monthly skin self exams for lesions changing in size, shape, or color, or non-healing lesions * Differential diagnosis, prescription options and risks/benefits were discussed with the patient, who consented to treatment plan. * Zimmerman consented to photography for documentation if indicated. * A dermatoscope was used during the exam. * NUB = Neoplasm of Uncertain Behavior of Skin * NMSC = Nonmelanoma Skin Cancer * AK = Actinic Keratosis ------TIME ESTIMATION To include but not limied to: -Review of medical records -Time spent with patient including obtaining history, physical exam, shared decision making, procedures and counseling -Post visit documentation; HPI and physical exam findings, clinical researching, medical decision making, medication and lab ordering Total estimated time = 45 min -- Medication Reconciliation: Outpatient: Has the patient been taking medications as documented in the EMLR? YES: The patient has been taking medications as documented in the EMLR. Essential Medication List for Review used to complete this medication reconciliation. INCLUDED IN THIS LIST: Alphabetical list of active outpatient prescriptions dispensed from this [place] (local) and dispensed from another [place] or [facility] facility (remote) as well as inpatient orders [...] whether with a VA or non-VA provider. JLV Link Data on this list may not be complete. Please check JLThe Library. Allergies/ADRs (Tool #5) FACILITY ALLERGY/ADR -------- No Remote Allergy/ADR Data available for this patient [facility] (Tool #1) INCLUDED IN THIS LIST: Alphabetical list of active outpatient prescriptions dispensed from this [place] (local) and dispensed from another [place] or [facility] facility (remote) as well as inpatient orders (local pending and active), local clinic medications, locally documented non-VA medications, and local prescriptions that have or been discontinued in the past 90 days. Non-VA Meds Last Documented On: Data not found NOTE The display of VA prescriptions dispensed from another [place] or [facility] facility (remote) is limited to active outpatient prescription entries matched to National Drug File at the originating site and may not include some items such as investigational drugs, compounds, etc. NOT INCLUDED IN THIS LIST: Medications self-entered by the patient into personal health records (i.e. [employer]) are NOT included in this list. Non-VA medications documented outside this [place], remote inpatient orders (regardless of status) and remote clinic medications are NOT included in this list. The patient and provider must always discuss medications the patient is taking, regardless of where the medication was dispensed or obtained. OUTPT ALBUTEROL 90MCG (CFC-F) 200D ORAL INHL (Status = Discontinued) INHALE 2 PUFFS BY MOUTH FOUR TIMES DAILY NEEDED FOR BREATHING Rx# [id number] Last Released: 08/17/23 Qty/Days Supply: 03/15 Rx Expiration Date: 08/16/24 Refills Remainin OUTPT ALBUTEROL 90MCG (CFC-F) 200D ORAL INHL (Status = Active) INHALE 2 PUFFS BY MOUTH FOUR TIMES DAILY NEEDED FOR BREATHING Rx# [id number] Last Released: Qt/Days Supply: Rx Expiration Date: 11/25/24 Refills Remainin OUTPT CARBOXYMETHYLCELLULOSE NA 0.5% OPH SOLN (Status = Active) INSTILL 1 DROP INTO EACH EYE FOUR TIMES DAILY NEEDED FOR DRY EYE Rx# [id number] Last Released: 03/05/23 Qty/Days Supply: Rx Expiration Date: 03/01/24 Refills Remainin Indication: FOR DRY EYE OUTPT FINASTERIDE 5MG TAB (Status = Active) TAKE ONE TABLET BY MOUTH ONCE DAILY FOR PROSTATE Rx# [id number] Last Released: 08/29/23 Qty/Days Supply: Rx Expiration Date: 01/13/24 Refills Remainin OUTPT FLUTICAS 250/SALMETEROL 50 INHL DISK 60 (Status = Active) INHALE 1 PUFF BY MOUTH TWICE DAILY FOR BREATHING - RINSE MOUTH AFTER USE Rx# [id number] Last Released: 08/29/23 Qty/Days Supply: 03/15 Rx Expiration Date: 08/16/24 Refills Remainin OUTPT LIDOCAINE 5% PATCH (Status = Active) APPLY 1 PATCH TOPICALLY ONCE DAILY FOR NERVE PAIN (LEAVE PATCH ON FOR 12 HOURS, THEN REMOVE PATCH) Rx# [id number] Last Released: 11/14/23 Qty/Days Supply: Rx Expiration Date: 11/11/24 Refills Remainin Indication: FOR NERVE PAIN OUTPT TAMSULOSIN HCL 0.4MG CAP (Status = Active) TAKE ONE CAPSULE BY MOUTH AT BEDTIME Rx# [id number] Last Released: 09/22/23 Qty/Days Supply: Rx Expiration Date: 08/16/24 Refills Remainin OUTPT THEOPHYLLINE 400MG 24HR SA TAB (Status = Discontinued) TAKE ONE TABLET BY MOUTH ONCE DAILY Rx# [id number] Last Released: 04/07/23 Qty/Days Supply: Rx Expiration Date: 04/06/24 Refills Remainin OUTPT TIOTROPIUM 2.5MCG/ACTUAT 60D ORAL INHL (Status = Active) INHALE 2 PUFFS BY MOUTH ONCE DAILY Rx# [id number] Last Released: 08/29/23 Qty/Days Supply: 03/15 Rx Expiration Date: 08/16/24 Refills Remainin SUPPLIES /natalie/ ALECIA ESTEBAN DNP, STRIPPER APPRENTICE-C NURSE PRACTITIONER Signed: 11/29/2023 10:03 ALECIA ESTEBAN CNTRL TRN [facility]
--- OUTSIDE RECORDS SUMMARY | 2024-02-13 13:04 | XMS_ITS ---
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 Date/Time Encounter Type Encounter Description Reason Pro vider Source Jan 19, 2024 10:17 AM Outpatient Encounter ADMIN PAT ACTIVTIES (MASNONCT) IHE Encounter Template Text not used by [place] Plan of Treatment: Future Appointments (+ 6 [...] 20 appointments. The data comes from all [place] treatment [facility]. Appointment Date/Time Appointment Type Appointme nt Facility Name Feb 21, 2024 09:45 AM AMBULATORY - MED[facility] Feb 27, 2024 10:00 AM AMBULATORY - MEDICINE [facility] NTRL W[facility]N [facility] Mar 20, 2024 09:00 AM AMBULATORY - MEDICINE [facility] NTRL W[facility]N [facility] May 10, 2024 09:30 AM AMBULATORY - NONE [facility] May 10, 2024 10:30 AM AMBULATORY - MEDICINE [facility] Active, Pending, and Scheduled Orders This section includes a listing of several types of active, pending, and scheduled orders, including clinic medications orders, diagnostic test orders, procedure orders and consult orders; where the start date of the order is 45 days before the date of the Encounter or 45 days after the date of theEncounter. The data comes from all [facility]. Test Date/Time Test Type Test Details Facility Name Jan 05, 2024 08:22 AM Consult Order COMMUNITY CARE-PULMONARY REHAB Cons Load Tester's Choice [facility] Social History: Smoking Status (Most current) and Tobacco Use (All prior to encounter date) This section includes the most current, and the historical, smoking and tobacco- related health factors from the [place] facility where the Encounter took place. Current Smoking Status This section includes the most current smoking, or tobacco-related health factor, from the [place] facility where the Encounter took place. Date/Time Current Smoking Status Comment Shanell it Jan 12, 2023 09:00 AM VA-TOBACCO USER EVERY DAY [facility] Tobacco Use History This section includes a history of the smoking, or tobacco-related health factors, that were collected on or before the date of the Encounter. The data comes from the [place] facility where the Encounter took place. 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 [facility] [place] [place] [facility] Jan 12, 2023 09:00 AM VA-TOBACCO USE MED NO [facility] [place] [facility] Jan 12, 2023 09:00 AM VA-TOBACCO USER EVERY DAY [facility] [place] [facility] Oct 23, 2021 08:00 AM VA-TOBACCO DOESNT USE WI 30 MIN WAKEUP [place] [facility] Oct 23, 2021 08:00 AM VA-TOBACCO USE 30 YEARS OR MORE [facility] [place] [facility] Oct 23, 2021 08:00 AM VA-TOBACCO USE ADVICE [facility] [place] [facility] Oct 23, 2021 08:00 AM VA-TOBACCO USE SALESPERSON WOMEN'S HATS NO [facility] [place] [facility] Oct 23, 2021 08:00 AM VA-TOBACCO USE MED NO [place] [facility] [place] [facility] Oct 23, 2021 08:00 AM VA-TOBACCO USER EVERY DAY [place] [facility] [facility] Oct 29, 2020 10:00 AM VA-TOBACCO DOESNT USE WI 30 MIN WAKEUP [place] [facility] [facility] Oct 29, 2020 10:00 AM VA-TOBACCO USE 30 YEARS OR MORE [place] [facility] [facility] Oct 29, 2020 10:00 AM VA-TOBACCO USE ADVICE [facility] [place] [facility] Oct 29, 2020 10:00 AM VA-TOBACCO USE SALESPERSON WOMEN'S HATS YES [facility] [place] [facility] Oct 29, 2020 10:00 AM VA-TOBACCO USE MED NOTIFY PROVIDER [place] [facility] [facility] Oct 29, 2020 10:00 AM VA-TOBACCO USER EVERY DAY [place] [facility] [facility] Oct 10, 2019 11:00 AM VA-TOBACCO FORMER USER [facility] [place] [facility] Oct 10, 2019 11:00 AM VA-TOBACCO QUIT < 1 YEAR [place] [facility] [place] [facility] Oct 26, 2018 07:55 AM VA-TOBACCO USE > 15 LESS THAN 30 YEARS [place] [facility] Oct 26, 2018 07:55 AM VA-TOBACCO USE ADVICE [place] [facility] [place] [facility] Oct 26, 2018 07:55 AM VA-TOBACCO USE SALESPERSON WOMEN'S 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 NO [place] [facility] Oct 26, 2018 07:55 AM VA-TOBACCO USE MED NO [facility] [place] [facility] Oct 26, 2018 07:55 AM VA-TOBACCO USE WI 30 MIN OF WAKEUP [place] [facility] Oct 26, 2018 07:55 AM VA-TOBACCO USER EVERY DAY [place] [facility] Aug 04, 2017 08:53 AM CURRENT SMOKER [place] [facility] [place] [facility] Aug 04, 2017 08:53 AM V1-PT DECLINES REF TO TOBACCO CESS PRGM [place] [facility] Aug 04, 2017 08:53 AM V1-PT DECLINES TOBACCO CESSATION MEDS [place] [facility] [place] [facility] Aug 04, 2017 08:53 AM V1-PT THINKING ABOUT QUIT TOBACCO USE [place] [facility] [place] [facility] Jan 31, 2017 09:51 AM QUIT TOBACCO USE IN PAST YEAR 31 days [place] [facility] [place] [facility] Jan 26, 2016 08:36 AM CURRENT SMOKER [place] [facility] Jan 26, 2016 08:36 AM V1-PT DECLINES REF TO TOBACCO CESS PRGM [place] [facility] Jan 26, 2016 08:36 AM V1-PT DECLINES TOBACCO CESSATION MEDS [facility] [place] [facility] Jan 26, 2016 08:36 AM V1-PT THINKING ABOUT QUIT TOBACCO USE [facility] [place] [facility] Feb 20, 2015 10:25 AM QUIT TOBACCO USE IN PAST YEAR [place] [facility] [facility] June 17, 2014 07:37 AM CURRENT SMOKER Reports being an off and on smoker -cigarettes [facility] [place] [facility] June 17, 2014 07:37 AM V1-PT DECLINES REF TO TOBACCO CESS PRGM [place] [facility] June 17, 2014 07:37 AM V1-PT DECLINES TOBACCO CESSATION MEDS [place] [facility] [place] [facility] June 17, 2014 07:37 AM V1-PT THINKING ABOUT QUIT TOBACCO USE [facility] [place] [facility] Sep 14, 2011 09:51 AM CURRENT SMOKER less than a pack a day [place] [facility] [place] [facility] Sep 14, 2011 09:51 AM V1-PT DECLINES REF TO TOBACCO CESS PRGM [place] [facility] [place] [facility] Sep 14, 2011 09:51 AM V1-PT DECLINES TOBACCO CESSATION MEDS [facility] [place] [facility] Sep 14, 2011 09:51 AM V1-PT THINKING ABOUT QUIT TOBACCO USE [place] [facility] [place] [facility] Mar 09, 2010 09:32 AM CURRENT SMOKER 1 ppd [facility] [place] [facility] Mar 09, 2010 09:32 AM V1-PT DECLINES TOBACCO CESSATION MEDS [place] [facility] [place] [facility] Mar 09, 2010 09:32 AM V1-PT REF TO NON-VA TOBACCO CESS PRGM [place] [facility] [place] [facility] Mar 09, 2010 09:32 AM V1-PT THINKING ABOUT QUIT TOBACCO USE [place] [facility] [place] [facility] Sep 29, 2009 02:07 PM V1-PT DECLINES REF TO TOBACCO CESS PRGM [place] [facility] [place] [facility] Sep 29, 2009 02:07 PM V1-PT DECLINES TOBACCO CESSATION MEDS [facility] Sep 29, 2009 02:07 PM V1-PT NOT INTERESTED IN QUIT TOBACCO USE [place] [facility] [place] [facility] Jan 29, 2009 11:00 AM CURRENT SMOKER 1 ppd [facility] [place] [facility] Jan 29, 2009 11:00 AM V1-PT DECLINES TOBACCO CESSATION MEDS [place] [facility] [place] [facility] Jan 29, 2009 11:00 AM V1-PT READY TO QUIT TOBACCO USE [place] [facility] [place] [facility] Mar 17, 2005 08:36 AM CURRENT SMOKER [facility] Advance Directives: All historical and current Section Date Range: From patient's date of to the date document was created. This section includes ALL of a patient's completed or amended [place] Advance and Rescinded Directives. The entries below indicate that a directive exists for the patient, but an actual copy is not included with this document. The data comes from all [place] facilities. Date Advance Directives Provider Source Nov 11, 2023 ADVANCE DIRECTIVE JACOB DEL TORO [place] [facility] Encounter Notes: All associated encounter notes This section contains the clinical notes associated to the Encounter. Date/Time Encounter Note(s) Provider Source Jan 19, 2024 10:17 AM ADMINISTRATIVE NOTE: LOCAL TITLE: CCC: SCHEDULING ADMINISTRATION STANDARD TITLE: ADMINISTRATIVE NOTE DATE OF NOTE: JAN 19, 2024@10:17:49 ENTRY DATE: JAN 19, 2024@10:17:50 AUTHOR: RANDY ROBBINS COSIGNER: URGENCY: STATUS: COMPLETED CCC: SCHEDULING ADMINISTRATION Has ADDENDA Patient Demographics Patient Name: BRAD CUENCA Patient Primary Phone: [phone] Patient Primary Address: [address] [place] [id number] Patient : 1950 Patient Age: 73 Caller/Recipient Relation to Patient: Self Caller Name: BRAD CUENCA Administrative Administrative Note Reason: Other Administrative Note Comments: [place] calling requesting to speak with PACT. states its in regards to his authorization to [facility] for Pulmonary rehab. [place] states they have not received the authorization. is requesting if PACT can reach out to Roberta at the Pulmonary rehab facility P: [phone] and FX: [phone]. Please advise. IMPORTANT: This note was created by [facility] Clinical Contact Center staff. Please do not alert the staff member by adding them as a signer for future communications. Alerts are not monitored by this user. /natalie/ RANDY ROBBINS V1 CCC AMSA Signed: 01/19/2024 10:17 Receipt Acknowledged By: 01/19/2024 12:55 /es/ TRU CALVERT LPN License Practical Nurse 01/19/2024 11:44 /es/ MARLEE CLINTON RN REGISTERED NURSE 01/19/2024 ADDENDUM STATUS: COMPLETED spoke with Roberta at Pulmonary Rehab, she states office has not received. Confirmed fax number, provided Referral number. Teams msg. to Hi Quinonez, he reports he will fax it again and call the office to let them know it's been faxed. /natalie/ MARLEE CLINTON, SHERYL REGISTERED NURSE Signed: 01/19/2024 11:47 RANDY ROBBINS [facility]
--- OUTSIDE RECORDS SUMMARY | 2024-02-13 13:04 | XMS_ITS ---
Author Name [place] Address [address] [place] [address] Care Team Providers Care Presser Automatic Name Role Phone PRINCESS RAMON Primary Care [...] PART A Jul 15, 2013 PART A [id number] BRAD CUENCA JR PATIENT MEDICARE (WNR) MEDICARE (M) PART B Jul 15, 2013 PART B [id number] BRAD CUENCA JR PATIENT Selected Encounter This section includes the [place] for the Encounter. Date/Time Encounter Type Encounter Description Reason Pro vider Source Jan 04, 2024 04:31 PM Outpatient Encounter COMMUNITY CARE CONSULT IHE Encounter [...] 20 appointments. The data comes from all [facility]. Appointment Date/Time Appointment Type Appointme nt Facility Name Feb 21, 2024 09:45 AM AMBULATORY - MEDICINE [facility] NTRL W[facility]N [facility] Feb 27, 2024 10:00 AM AM[place]UL[place]ORY [place] [facility] Mar 20, 2024 09:00 AM AMBULATORY - [place]ICINE [place] [facility] May 10, 2024 09:30 AM AMBULATORY - NONE [facility] May 10, 2024 10:30 AM AMBULATORY - MEDICINE [facility] Active, Pending, and Scheduled Orders This section includes a listing of several types of active, pending, and scheduled orders, including clinic medications orders, diagnostic test orders, procedure orders and consult orders; where the start date of the order is 45 days before the date of the Encounter or 45 days after the date of theEncounter. The data comes from all [facility]. Test Date/Time Test Type Test Details Facility Name Jan 05, 2024 08:22 AM Consult Order COMMUNITY CARE-PULMONARY REHAB Cons Upset Operator's Choice [facility] Social History: Smoking Status (Most current) and Tobacco Use (All prior to encounter date) This section includes the most current, and the historical, smoking and tobacco- related health factors from the [place] facility where the Encounter took place. Current Smoking Status This section includes the most current smoking, or tobacco-related health factor, from the [place] facility where the Encounter took place. Date/Time Current Smoking Status Comment Shanell it Jan 12, 2023 09:00 AM VA-TOBACCO DOESNT USE WI 30 MIN WAKEUP [facility] Tobacco Use History This section includes a history of the smoking, or tobacco-related health factors, that were collected on or before the date of the Encounter. The data comes from the [place] facility where the Encounter took place. 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 NO [facility] [place] [facility] Jan 12, 2023 09:00 AM VA-TOBACCO USE MED NO [place] [facility] [place] [facility] Jan 12, 2023 09:00 AM VA-TOBACCO USER EVERY DAY [place] [facility] [place] [facility] Oct 23, 2021 08:00 AM VA-TOBACCO DOESNT USE WI 30 MIN WAKEUP [facility] [place] [facility] Oct 23, 2021 08:00 AM VA-TOBACCO USE 30 YEARS OR MORE [place] [facility] [place] [facility] Oct 23, 2021 08:00 AM VA-TOBACCO USE ADVICE [place] [facility] [place] [facility] Oct 23, 2021 08:00 AM VA-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 USE 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 NO [place] [facility] [place] [facility] Oct 23, 2021 08:00 AM VA-TOBACCO USE MED NO [place] [facility] [place] [facility] Oct 23, 2021 08:00 AM VA-TOBACCO USER EVERY DAY [place] [facility] [place] [facility] Oct 29, 2020 10:00 AM VA-TOBACCO DOESNT USE WI 30 MIN WAKEUP [place] [facility] Oct 29, 2020 10:00 AM VA-TOBACCO USE 30 YEARS OR MORE [place] [facility] [place] [facility] Oct 29, 2020 10:00 AM VA-TOBACCO USE ADVICE [place] [facility] [place] [facility] Oct 29, 2020 10:00 AM VA-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 USE 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 TEACHER YES [place] [facility] [place] [facility] Oct 29, 2020 10:00 AM VA-TOBACCO USE MED NOTIFY PROVIDER [place] [facility] Oct 29, 2020 10:00 AM VA-TOBACCO USER EVERY DAY [place] [facility] [place] [facility] Oct 10, 2019 11:00 AM VA-TOBACCO FORMER USER [place] [facility] [place] [facility] Oct 10, 2019 11:00 AM VA-TOBACCO QUIT < 1 YEAR [place] [facility] [facility] Oct 26, 2018 07:55 AM VA-TOBACCO USE > 15 LESS THAN 30 YEARS [place] [facility] Oct 26, 2018 07:55 AM VA-TOBACCO USE ADVICE 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 Oct 26, 2018 07:55 AM VA-TOBACCO USE WI 30 MIN OF WAKEUP [facility] [place] [facility] Oct 26, 2018 07:55 AM VA-TOBACCO USER EVERY DAY [facility] Aug 04, 2017 08:53 AM CURRENT SMOKER [place] [facility] Aug 04, 2017 08:53 AM V1-PT DECLINES REF TO TOBACCO CESS PRGM [facility] STEPHANYTRN [facility] Aug 04, 2017 08:53 AM V1-PT DECLINES TOBACCO CESSATION MEDS [facility] Aug 04, 2017 08:53 AM V1-PT THINKING ABOUT QUIT TOBACCO USE [place] [facility] [facility] Jan 31, 2017 09:51 AM QUIT TOBACCO USE IN PAST YEAR 31 days [place] [facility] Jan 26, 2016 08:36 AM CURRENT SMOKER [place] [facility] Jan 26, 2016 08:36 AM V1-PT DECLINES REF TO TOBACCO CESS PRGM [facility] [place] [facility] Jan 26, 2016 08:36 AM V1-PT DECLINES TOBACCO CESSATION MEDS [place] [facility] Jan 26, 2016 08:36 AM V1-PT THINKING ABOUT QUIT TOBACCO USE [place] [facility] [facility] Feb 20, 2015 10:25 AM QUIT TOBACCO USE IN PAST YEAR [place] [facility] June 17, 2014 07:37 AM CURRENT SMOKER Reports being an off and on smoker -cigarettes [place] [facility] June 17, 2014 07:37 AM V1-PT DECLINES REF TO TOBACCO CESS PRGM [place] [facility] June 17, 2014 07:37 AM V1-PT DECLINES TOBACCO CESSATION MEDS [place] [facility] [place] [facility] June 17, 2014 07:37 AM V1-PT THINKING ABOUT QUIT TOBACCO USE [place] [place] [facility] Sep 14, 2011 09:51 AM CURRENT SMOKER less than a pack a day [place] [place] [facility] Sep 14, 2011 09:51 AM V1-PT DECLINES REF TO TOBACCO CESS PRGM [facility] Sep 14, 2011 09:51 AM V1-PT DECLINES TOBACCO CESSATION MEDS [facility] Sep 14, 2011 09:51 AM V1-PT THINKING ABOUT QUIT TOBACCO USE [facility] W[facility]N [facility] Mar 09, 2010 09:32 AM CURRENT SMOKER 1 ppd [facility] Mar 09, 2010 09:32 AM V1-PT DECLINES TOBACCO CESSATION MEDS [facility] Mar 09, 2010 09:32 AM V1-PT REF TO NON-VA TOBACCO CESS PRGM [facility]ENTERRL[facility]TRN [facility] Mar 09, 2010 09:32 AM V1-PT THINKING ABOUT QUIT TOBACCO USE [facility] Sep 29, 2009 02:07 PM V1-PT DECLINES REF TO TOBACCO CESS PRGM [facility]RL[facility]TR[facility] Sep 29, 2009 02:07 PM V1-PT DECLINES TOBACCO CESSATION MEDS [facility] STEPHANYTRN [facility] Sep 29, 2009 02:07 PM V1-PT NOT INTERESTED IN QUIT TOBACCO USE [facility] [place] [facility] Jan 29, 2009 11:00 AM CURRENT SMOKER 1 ppd [place] [facility] Jan 29, 2009 11:00 AM V1-PT DECLINES TOBACCO CESSATION MEDS [facility] Jan 29, 2009 11:00 AM V1-PT READY TO QUIT TOBACCO USE [facility] [place] [place] [facility] Mar 17, 2005 08:36 AM CURRENT SMOKER [facility] Advance Directives: All historical and current Section Date Range: From patient's date of to the date document was created. This section includes ALL of a patient's completed or amended [place] Advance and Rescinded Directives. The entries below indicate that a directive exists for the patient, but an actual copy is not included with this document. The data comes from all [place] facilities. Date Advance Directives Provider Source Nov 11, 2023 ADVANCE DIRECTIVE ALVERTOJACOB Mariusz [place] C NTRL [facility] Encounter Notes: All associated encounter notes This section contains the clinical notes associated to the Encounter. Date/Time Encounter Note(s) Provider Source Jan 04, 2024 04:31 PM NONVA NOTE: LOCAL TITLE: COMMUNITY CARE-CARE COORDINATION PLAN NOTE STANDARD TITLE: NONVA NOTE DATE OF NOTE: JAN 04, 2024@16:31 ENTRY DATE: JAN 04, 2024@16:32:03 AUTHOR: JODI SAMANIEGO COSIGNER: URGENCY: STATUS: COMPLETED COMMUNITY CARE-CARE COORDINATION PLAN NOTE Has ADDENDA Community Pulmonary Provider, Dr. Dockery at [facility] would like to have patient do pulm rehab at [facility]. Alert to PACT: Please enter Community [facility] Pulmonary Rehab consult if in agreement. [facility] [address] [place] [address] /natalie/ JODI SAMANIEGO Community Care RN Signed: 01/04/2024 16:33 Receipt Acknowledged By: 01/05/2024 08:26 /natalie/ PRINCESS RAMON D.O. PHYSICIAN 01/05/2024 08:07 /natalie/ MARLEE CLINTON, SHERYL REGISTERED NURSE 01/05/2024 ADDENDUM STATUS: COMPLETED consult entered as requested, held for PCP signature /natalie/ MARLEE CLINTON RN REGISTERED NURSE Signed: 01/05/2024 08:08 JODI SAMANIEGO [place] CNTRL [facility]
--- OUTSIDE RECORDS SUMMARY | 2024-02-13 13:04 | XMS_ITS | Encounter Summary ---
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 Date/Time Encounter Type Encounter Description Reason Pro vider Source Nov 16, 2023 09:11 AM Outpatient Encounter PRIMARY CARE/MEDICINE IHE Encounter Template [...] 20 appointments. The data comes from all [facility]. Appointment Date/Time Appointment Type Appointme nt Facility Name Nov 25, 2023 09:30 AM [facility] Nov 29, 2023 09:00 AM AMBULATORY - MEDICINE [facility] NTRL TRN [facility] Feb 21, 2024 09:45 AM AMBULATORY - MEDICINE [facility] NTRL W[facility]N [facility] Feb 27, 2024 10:00 AM AMBULATORY - MEDICINE [facility] [place] [facility] Mar 20, 2024 09:00 AM AMBULATORY MEDICINE [facility] NTRL TRN [facility] May 10, 2024 09:30 AM [facility] [place] [facility] May 10, 2024 10:30 AM AMBULATORY - MEDICINE [facility] Active, Pending, and Scheduled Orders This section includes a listing of several types of active, pending, and scheduled orders, including clinic medications orders, diagnostic test orders, procedure orders and consult orders; where the start date of the order is 45 days before the date of the Encounter or 45 days after the date of theEncounter. The data comes from all [facility]. Test Date/Time Test Type Test Details Facility Name Nov 11, 2023 12:03 PM Consult Order COMMUNITY CARE-UROLOGY Cons Brain Wave Technician's Choice [facility] Lab Results: +/- 30 days of [...] Range Comment Nov 03, 2023 08:12 AM [facility] FERRITIN Specimen Type: SERUM No comment entered. Ordering Provider: PRINCESS RAMON Report Released Date/Time: Nov 01, 2023 12:47 PM Reporting Lab: [address] [address] [facility]forming [facility]: [facility] [address] [address] FERRITIN 144 ng/mL 20-300 Nov 03, 2023 08:12 AM [facility] IRON & TIBC PANEL Specimen Type: SERUM No comment entered. Ordering Provider: PRINCESS RAMON Report Released Date/Time: Nov 01, 2023 12:47 PM Reporting [facility]: [facility] [address] [address] Performing Lab: [facility] [address] TIBC 268 ug/dL 204-475 IRON 195 ug/dL H 40-160 Transferrin Saturation 72.8 H 20.0-50.0 Transferrin (TRF) 203 mg/dL 200-360 Nov 03, 2023 08:12 AM [facility] LIVER FUNCTION Specimen Type: SERUM No comment entered. Ordering Provider: PRINCESS RAMON Report Released Date/Time: Nov 01, 2023 12:47 PM Reporting Lab: [address] [address] Performing Lab: [address] [address] PROTEIN,TOTAL 6.4 g/dL 6.0-8.3 ALBUMIN 4.1 g/dL 3.5-5.0 ALKALINE PHOSPHATASE 75 U/L 40-150 AST 22 U/L 5-34 ALT 35 U/L BILIRUBIN, TOTAL 0.6 mg/dL 0.2-1.2 Nov 03, 2023 08:12 AM [facility] CBC Specimen Type: BLOOD No comment entered. Ordering Provider: PRINCESS RAMON Report Released Date/Time: Nov 01, 2023 12:47 PM Reporting Lab: [facility] [address] [address] Performing Lab: [address] [address] WBC 7.31 10*3/uL 4.50-11.00 RBC 5.14 10*6/uL [...] took place. Date/Time Current Smoking Status Comment [facility] Jan 12, 2023 09:00 AM VA-TOBACCO USER EVERY DAY [place] [facility] Tobacco Use History This section includes a history of the smoking, or tobacco-related health factors, that were collected on or before the date of the Encounter. The data comes from the [place] facility where the Encounter took place. 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 [place] [facility] Jan 12, 2023 09:00 AM VA-TOBACCO USE MED NO [facility] [place] [facility] Jan 12, 2023 09:00 AM VA-TOBACCO USER EVERY DAY [facility] [facility] Oct 23, 2021 08:00 AM VA-TOBACCO DOESNT USE WI 30 MIN WAKEUP [facility] [facility] Oct 23, 2021 08:00 AM VA-TOBACCO USE 30 YEARS OR MORE [facility] Oct 23, 2021 08:00 AM VA-TOBACCO USE ADVICE [facility] Oct 23, 2021 08:00 AM VA-TOBACCO USE 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 HEAD 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 NO [facility] Oct 23, 2021 08:00 AM VA-TOBACCO USE MED NO [place] [facility] Oct 23, 2021 08:00 AM VA-TOBACCO USER EVERY DAY [facility] Oct 29, 2020 10:00 AM VA-TOBACCO DOESNT USE WI 30 MIN WAKEUP [place] [facility] Oct 29, 2020 10:00 AM VA-TOBACCO USE 30 YEARS OR MORE [facility] Oct 29, 2020 10:00 AM VA-TOBACCO USE ADVICE [place] [facility] Oct 29, 2020 10:00 AM VA-TOBACCO USE 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 HEAD PERFORATOR YES [place] [facility] Oct 29, 2020 10:00 AM VA-TOBACCO USE MED NOTIFY PROVIDER [place] [facility] Oct 29, 2020 10:00 AM VA-TOBACCO USER EVERY DAY [place] [facility] Oct 10, 2019 11:00 AM VA-TOBACCO FORMER USER [place] [facility] Oct 10, 2019 11:00 AM VA-TOBACCO QUIT < 1 YEAR [place] [facility] Oct 26, 2018 07:55 AM VA-TOBACCO USE > 15 LESS THAN 30 YEARS [place] [facility] Oct 26, 2018 07:55 AM VA-TOBACCO USE ADVICE [place] [facility] Oct 26, 2018 07:55 AM VA-TOBACCO USE 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 HEAD PERFORATOR NO [place] [facility] Oct 26, 2018 07:55 AM VA-TOBACCO USE MED NO [place] [facility] Oct 26, 2018 07:55 AM VA-TOBACCO USE WI 30 MIN OF WAKEUP [place] [facility] [facility] Oct 26, 2018 07:55 AM VA-TOBACCO USER EVERY DAY [place] [facility] Aug 04, 2017 08:53 AM CURRENT SMOKER [place] [facility] Aug 04, 2017 08:53 AM V1-PT DECLINES REF TO TOBACCO CESS PRGM [place] [facility] Aug 04, 2017 08:53 AM V1-PT DECLINES TOBACCO CESSATION MEDS [facility] Aug 04, 2017 08:53 AM V1-PT THINKING ABOUT QUIT TOBACCO USE [facility] Jan 31, 2017 09:51 AM QUIT TOBACCO USE IN PAST YEAR 31 days [facility] Jan 26, 2016 08:36 AM CURRENT SMOKER [facility] Jan 26, 2016 08:36 AM V1-PT DECLINES REF TO TOBACCO CESS PRGM [facility] Jan 26, 2016 08:36 AM V1-PT DECLINES TOBACCO CESSATION MEDS [facility] Jan 26, 2016 08:36 AM V1-PT THINKING ABOUT QUIT TOBACCO USE [facility] Feb 20, 2015 10:25 AM QUIT [facility]AC[facility] [place] June 17, 2014 07:37 AM CURRENT SMOKER Reports being an off and on smoker -cigarettes [facility] June 17, 2014 07:37 AM V1-PT DECLINES REF TO TOBACCO CESS [facility] June 17, 2014 07:37 AM V1-PT DECLINES TOBACCO CESSATION MEDS [facility] [facility] June 17, 2014 07:37 AM V1-PT THINKING ABOUT QUIT TOBACCO USE [facility] Sep 14, 2011 09:51 AM CURRENT SMOKER less than a pack a day [facility] Sep 14, 2011 09:51 AM V1-PT DECLINES REF TO TOBACCO CESS PRGM [facility] Sep 14, 2011 09:51 AM V1-PT DECLINES TOBACCO CESSATION MEDS [facility] Sep 14, 2011 09:51 AM V1-PT THINKING ABOUT QUIT TOBACCO USE [facility] Mar 09, 2010 09:32 AM CURRENT SMOKER 1 ppd [facility] Mar 09, 2010 09:32 AM V1-PT DECLINES TOBACCO CESSATION MEDS [facility] Mar 09, 2010 09:32 AM V1-PT REF TO NON-VA [facility]BACCO CESS [facility] Mar 09, 2010 09:32 AM V1-PT THINKING ABOUT QUIT [facility]AC[facility] Sep 29, 2009 02:07 PM V1-PT DECLINES REF TO TOBACCO CESS PR[facility] Sep 29, 2009 02:07 PM V1-PT DECLINES TOBACCO CESSATION MEDS [facility] Sep 29, 2009 02:07 PM V1-PT NOT INTERESTED IN QUIT TOBACCO USE [facility] Jan 29, 2009 11:00 AM CURRENT SMOKER 1 ppd [facility] Jan 29, 2009 11:00 AM V1-PT DECLINES TOBACCO CESSATION MEDS [facility] Jan 29, 2009 11:00 AM V1-PT READY TO QUIT TOBACCO USE [facility] Mar 17, 2005 08:36 AM CURRENT SMOKER [facility] Advance Directives: All historical and current Section Date Range: From patient's date of to the date document was created. This section includes ALL of a patient's completed or amended [place] Advance and Rescinded Directives. The entries below indicate that a directive exists for the patient, but an actual copy is not included with this document. The data comes from all [facility]. Date Advance Directives Provider Source Nov 11, 2023 ADVANCE DIRECTIVE JACOB DEL TORO [facility] Encounter Notes: All associated encounter notes This section contains the clinical notes associated to the Encounter. 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 [facility] requesting continuation of care for 6 visits for dx of emphysema.. Consult placed on hold for provider to sign if appropriate. /natalie/ YANN PARK Registered Nurse Signed: 11/16/2023 09:20 YANN PARK [place] [facility]
--- OUTSIDE RECORDS SUMMARY | 2024-02-13 13:04 | XMS_ITS ---
Author Name [facility] Address [address] [place] [address] Care Team Providers Care Addresser Name Role Phone PRINCESS RAMON Primary Care [...] PART A Jul 15, 2013 PART A [id number] [facility] [phone] BRAD CUENCA JR PATIENT MEDICARE (WNR) MEDICARE (M) PART B Jul 15, 2013 PART B [id number] [phone] BRAD CUENCA JR PATIENT Selected Encounter This section includes the information on record at [place] for the Encounter. Date/Time Encounter Type Encounter Description Reason Provider Source Nov 11, 2023 09:00 AM OFFICE O/P EST HI 40 MIN PRIMARY CARE/MEDICINE ICD-10-CM J43.2 Centrilobular emphysema PRINCESS RAMON IHRajwinder Encounter Template Text not used by [place] Assessments - Encounter Diagnoses This section includes the primary and secondary diagnoses documented for the Encounter. Date/Time Primary/Secondary Diagnosis Diagnosis Name Provider Source Nov 11, 2023 12:17 PM PRIMARY Centrilobular emphysema FURCOLO,PRINCESS [facility] [place] [facility] Nov 11, 2023 12:17 PM SECONDARY Benign prostatic hyperplasia without lower urinry tract symp FURCOLO,PRINCESS [facility] [place] [facility] Nov 11, 2023 12:17 PM SECONDARY Nicotine dependence, unsp, w oth nicotine-induced disorders FURCOLO,PRINCESS [facility] [place] [facility] Nov 11, 2023 12:17 PM SECONDARY Other hemochromatosis FURCOLO,PRINCESS [facility] [place] [facility] Nov 11, 2023 12:17 PM SECONDARY Other obesity FURCOLO,PRINCESS [facility] [place] [facility] Plan of Treatment: Future Appointments (+ 6 months) and Future Tests (+/- 45 days) The Plan of Treatment section includes future care activities for the patient from all [place] [facility]. This section includes future appointments and future orders which are active, pending or scheduled. Future Appointments This section includes appointments that were scheduled to occur 6 months from the date of the Encounter, up to a maximum of 20 appointments. The data comes from all [place] treatment facilities. Appointment Date/Time Appointment Type Appointme nt Facility Name Nov 25, 2023 09:30 AM AMBULATORY - MEDICINE [place] [facility] [place] [facility] Nov 29, 2023 09:00 AM AMBULATORY - MEDICINE [place] [facility] [place] [facility] Feb 21, 2024 09:45 AM AMBULATORY - MEDICINE [facility] [place] [facility] Feb 27, 2024 10:00 AM AMBULATORY - MEDICINE [facility] [place] [facility] Mar 20, 2024 09:00 AM AMBULATORY - MEDICINE [facility] [place] [facility] May 10, 2024 09:30 AM AMBULATORY - NONE [facility] [place] [facility] May 10, 2024 10:30 AM AMBULATORY - MEDICINE [place] [facility] [place] [facility] Active, Pending, and Scheduled Orders This section includes a listing of several types of active, pending, and scheduled orders, including clinic medications orders, diagnostic test orders, procedure orders and consult orders; where the start date of the order is 45 days before the date of the Encounter or 45 days after the date of theEncounter. The data comes from all [place] treatment facilities. Test Date/Time Test Type Test Details Facility Name Nov 11, 2023 12:03 PM Consult Order COMMUNITY CARE-UROLOGY Cons Electrical Contacts Adjuster's Choice [facility] Lab Results: +/- 30 days of the encounter This section includes the Chemistry and Hematology Lab Results on record with [place] for the patient. Radiology Reports and Pathology Reports are provided separately, in subsequent sections. Lab Results This section contains the Chemistry/Hematology Results that were resulted 30 days before or 30 daysafter the date of the Encounter. Date/Time Source Result Type Result - Unit Interpretation Reference Range Comment Nov 03, 2023 08:12 AM [facility] FERRITIN Specimen Type: SERUM No comment entered. Ordering Provider: PRINCESS RAMON Report Released Date/Time: Nov 01, 2023 12:47 PM Reporting Lab: [address] [address] Performing Lab: [id number] [address] FERRITIN 144 ng/mL 20-300 Nov 03, 2023 08:12 AM [facility] IRON & TIBC PANEL Specimen Type: SERUM No comment entered. Ordering Provider: PRINCESS RAMON Report Released Date/Time: Nov 01, 2023 12:47 PM Reporting Lab: [address] [address] Performing Lab: [id number] [address] TIBC 268 ug/dL 204-475 IRON 195 ug/dL H 40-160 Transferrin Saturation 72.8 H 20.0-50.0 Transferrin (TRF) 203 mg/dL 200-360 Nov 03, 2023 08:12 AM [facility] LIVER FUNCTION Specimen Type: SERUM No comment entered. Ordering Provider: PRINCESS RAMON Report Released Date/Time: Nov 01, 2023 12:47 PM Reporting Lab: [id number] [address] Performing Lab: [address] [address] PROTEIN,TOTAL 6.4 g/dL 6.0-8.3 ALBUMIN 4.1 g/dL 3.5-5.0 ALKALINE PHOSPHATASE 75 U/L 40-150 AST 22 U/L 5-34 ALT 35 U/L BILIRUBIN, TOTAL 0.6 mg/dL 0.2-1.2 Nov 03, 2023 08:12 AM [facility] CBC Specimen Type: BLOOD No comment entered. Ordering Provider: PRINCESS RAMON Report Released Date/Time: Nov 01, 2023 12:47 PM Reporting Lab: [address] [address] Performing Lab: [address] [address] WBC 7.31 10*3/uL 4.50-11.00 RBC 5.14 10*6/uL 4.23-5.66 HGB 16.5 g/dL 12.8-17 HCT 49.0 39.2-50.4 MCV 95.3 fL 82-99 MCHC 33.7 g/dL 30.8-35.1 PLT 182 10*3/uL 140-360 RDW-CV 12.3 12.0-16.0 MCH 32.1 pg 26.2-32.6 Vital Signs: All taken on the encounter date This section contains inpatient and outpatient Vital Signs collected on the date of the Encounter. Date/Time Temperature Pulse Blood Pressure Respiratory Rate SP02 Pain Height Weight Body Mass Index Source Nov 11, 2023 12:06 PM 138/70 [facility] Nov 11, 2023 09:02 AM 98.7 107 154/90 16 90 0 265 37 [facility] Social History: Smoking Status (Most current) and Tobacco Use (All prior to encounter date) This section includes the most current, and the historical, smoking and tobacco- related health factors from the [place] facility where the Encounter took place. Current Smoking Status This section includes the most current smoking, or tobacco-related health factor, from the [place] facility where the Encounter took place. Date/Time Current Smoking Status Comment [facility] Jan 12, 2023 09:00 AM VA-TOBACCO USER EVERY DAY [place] [facility] [place] [facility] Tobacco Use History This section includes a history of the smoking, or tobacco-related health factors, that were collected on or before the date of the Encounter. The data comes from the [facility] where the Encounter took place. Date/Time Smoking Status/Tobac co Use Comment [facility] Jan 12, 2023 09:00 AM VA-TOBACCO USE 30 YEARS OR MORE [facility] [place] [facility] Jan 12, 2023 09:00 AM VA-TOBACCO USE ADVICE [facility] [place] [facility] Jan 12, 2023 09:00 AM VA-TOBACCO USE PROCESS TREATER NO [facility] [place] [facility] Jan 12, 2023 09:00 AM VA-TOBACCO USE MED NO [facility] [place] [facility] Jan 12, 2023 09:00 AM VA-TOBACCO USER EVERY DAY [facility] [place] [facility] Oct 23, 2021 08:00 AM VA-TOBACCO DOESNT USE WI 30 MIN WAKEUP [facility] [place] [facility] Oct 23, 2021 08:00 AM VA-TOBACCO USE 30 YEARS OR MORE [facility] [place] [facility] Oct 23, 2021 08:00 AM VA-TOBACCO USE ADVICE [facility] [place] [facility] Oct 23, 2021 08:00 AM VA-TOBACCO USE PROCESS TREATER NO [facility] [place] [facility] Oct 23, 2021 08:00 AM VA-TOBACCO USE MED NO [facility] [place] [facility] Oct 23, 2021 08:00 AM VA-TOBACCO USER EVERY DAY [facility] [place] [facility] Oct 29, 2020 10:00 AM VA-TOBACCO DOESNT USE WI 30 MIN WAKEUP [facility] [place] [facility] Oct 29, 2020 10:00 AM VA-TOBACCO USE 30 YEARS OR MORE [facility] [place] [facility] Oct 29, 2020 10:00 AM VA-TOBACCO USE ADVICE [facility] [place] [facility] Oct 29, 2020 10:00 AM VA-TOBACCO USE PROCESS TREATER YES [facility] [place] [facility] Oct 29, 2020 10:00 AM VA-TOBACCO USE MED NOTIFY PROVIDER [place] [facility] [place] [facility] Oct 29, 2020 10:00 AM VA-TOBACCO USER EVERY DAY [facility] [place] [facility] Oct 10, 2019 11:00 AM VA-TOBACCO FORMER USER [place] [facility] [place] [facility] Oct 10, 2019 11:00 AM VA-TOBACCO QUIT < 1 YEAR [facility] [place] [facility] Oct 26, 2018 07:55 AM VA-TOBACCO USE > 15 LESS THAN 30 YEARS [facility] [place] [facility] Oct 26, 2018 07:55 AM VA-TOBACCO USE ADVICE [place] [facility] [place] [place] [facility] Oct 26, 2018 07:55 AM VA-TOBACCO USE PROCESS TREATER NO [place] [facility] [place] [facility] Oct 26, 2018 07:55 AM VA-TOBACCO USE MED NO [place] [facility] [place] [facility] Oct 26, 2018 07:55 AM VA-TOBACCO USE WI 30 MIN OF WAKEUP [facility] [place] [facility] Oct 26, 2018 07:55 AM VA-TOBACCO USER EVERY DAY [facility] [place] [facility] Aug 04, 2017 08:53 AM CURRENT SMOKER [place] [facility] [place] [facility] Aug 04, 2017 08:53 AM V1-PT DECLINES REF TO TOBACCO [facility]ESS [facility] [place] [facility] Aug 04, 2017 08:53 AM V1-PT DECLINES TOBACCO CESSATION MEDS [place] [facility] [place] [facility] Aug 04, 2017 08:53 AM V1-PT THINKING ABOUT QUIT TOBACCO USE [facility] [place] [facility] Jan 31, 2017 09:51 AM QUIT TOBACCO USE IN PAST YEAR 31 days [facility] [place] [facility] Jan 26, 2016 08:36 AM CURRENT SMOKER [place] [facility] [place] [facility] Jan 26, 2016 08:36 AM V1-PT DECLINES REF TO TOBACCO CESS PRGM [place] [facility] [place] [facility] Jan 26, 2016 08:36 AM V1-PT DECLINES TOBACCO CESSATION MEDS [facility] [place] [facility] Jan 26, 2016 08:36 AM V1-PT THINKING ABOUT QUIT TOBACCO USE [facility] [place] [facility] Feb 20, 2015 10:25 AM QUIT TOBACCO USE IN PAST YEAR [facility] [place] [facility] June 17, 2014 07:37 AM CURRENT SMOKER Reports being an off and on smoker -cigarettes [facility] [place] [facility] June 17, 2014 07:37 AM V1-PT DECLINES REF TO TOBACCO CESS PRGM [facility] [place] [facility] June 17, 2014 07:37 AM V1-PT DECLINES TOBACCO CESSATION MEDS [facility] [place] [facility] June 17, 2014 07:37 AM V1-PT THINKING ABOUT QUIT TOBACCO USE [place] [facility] [place] [facility] Sep 14, 2011 09:51 AM CURRENT SMOKER less than a pack a day [facility] [place] [facility] Sep 14, 2011 09:51 AM V1-PT DECLINES REF TO TOBACCO CESS [facility] [place] [place] [facility] Sep 14, 2011 09:51 AM V1-PT DECLINES TOBACCO CESSATION MEDS [facility] Sep 14, 2011 09:51 AM V1-PT THINKING ABOUT QUIT TOBACCO USE [facility] [place] [facility] Mar 09, 2010 09:32 AM CURRENT SMOKER 1 ppd [place] [facility] [place] [facility] Mar 09, 2010 09:32 AM V1-PT DECLINES TOBACCO CESSATION MEDS [facility] Mar 09, 2010 09:32 AM V1-PT REF TO NON-VA TOBACCO CESS [facility] [place] [place] [facility] Mar 09, 2010 09:32 AM V1-PT THINKING ABOUT QUIT TOBACCO USE [place] [facility] [place] [facility] Sep 29, 2009 02:07 PM V1-PT DECLINES REF TO TOBACCO CESS PRGM [facility] [place] [facility] Sep 29, 2009 02:07 PM V1-PT DECLINES TOBACCO CESSATION MEDS [facility] [place] [facility] Sep 29, 2009 02:07 PM V1-PT NOT INTERESTED IN QUIT TOBACCO USE [facility] [place] [facility] Jan 29, 2009 11:00 AM CURRENT SMOKER 1 ppd [facility] Jan 29, 2009 11:00 AM V1-PT DECLINES TOBACCO CESSATION MEDS [place] [facility] Jan 29, 2009 11:00 AM V1-PT READY TO QUIT TOBACCO USE [facility] [place] Mar 17, 2005 08:36 AM CURRENT SMOKER [facility] Advance Directives: All historical and current Section Date Range: From patient's date of to the date document was created. This section includes ALL of a patient's completed or amended [place] Advance and Rescinded Directives. The entries below indicate that a directive exists for the patient, but an actual copy is not included with this document. The data comes from all [place] facilities. Date Advance Directives Provider Source Nov 11, 2023 ADVANCE DIRECTIVE JACOB DEL TORO [facility] Encounter Notes: All associated encounter notes This section contains the clinical notes associated to the Encounter. Date/Time Encounter Note(s) Provider Source Nov 11, 2023 12:18 PM ADDENDUM: LOCAL TITLE: Addendum STANDARD TITLE: ADDENDUM DATE OF NOTE: NOV 11, 2023@12:18:55 ENTRY DATE: NOV 11, 2023@12:18:56 AUTHOR: PRINCESS RAMON COSIGNER: URGENCY: STATUS: COMPLETED please fax to outside PCP Dr. Jasper Asencio Corning-FAX [phone] /natalie/ PRINCESS RAMON D.O. PHYSICIAN Signed: 11/11/2023 12:19 Receipt Acknowledged By: 11/11/2023 13:59 /avani DEL TORO AMSA --- Original Document --- 11/11/23 NOTE: BRAD CUENCA is a 73 year old WHITE MALE who is being seen today in primary care for routine follow up. CARE TEAM Community Primary Care Provider: Dr. Jasper Asencio, [facility]- phone [phone], FAX [phone] newrequesting taht I fax him visist note an dprevious labs [facility] Specialists: [facility] Specialists: phlebotomy- [facility] For hemachromatosis- monthly blood draws, 500 cc, hold if Hb 12 or lower changed to q 2 mo blood draws, 450 cc, hold for Hb<12 pulmonology- Dr. Dockery, [facility]- Dr. Montanez/Rosi (does not want to go back to) HISTORY PERIOD OF SERVICE - [facility]ED % - NONE FOUND [employer], [employer] [place], [phone], [facility] HISTORY OF PRESENT ILLNESS Patient presents today for routine follow-up states has been getting monthly blood draws for years- has been getting lightheaded and pre-syncope when full 500 cc drawn, prefers to have 450 cc. ferritin is <200, HCT is within normal range back issues, lidocaine patch given by a friend has been helpful- woudl liek to get obesity- wanting to lose weight. abd weigth affects his back- ability to walk- willing to do MOVE rogram skin lesions- does have upcoming derm apt BPH- on finasteride and tamsulosin- still with increased urination nocturia- considering TURP procedure. did not liek urologist office in [place] RELEVANT PAST MEDICAL HISTORY Active problems - Computerized Problem List is the source for the followin. Centriacinar emphysema 2. Impaired fasting glucose 3. Benign prostatic hyperplasia 4. Obesity 5. Open Angle Glaucoma Suspect 6. Counseling on Sexually Transmitted Diseases 7. History of colonoscopy Multihyperplastic polyps rectosigmoid, 3 - 5 yr f/u, screening colonoscopy was done 2016 8. Erectile dysfunction (SNOMED CT [id number]) 9. Elevated Prostate Specific Antigen (PSA) 10. Impacted cerumen * 11. Depressive Disorder NEC 12. Nicotine dependence (SNOMED CT 10587828) 13. Hemochromatosis (SNOMED CT 337102356) DR Hunter at [facility], phlebotomy. PAST SURGICAL HISTORY appendectomy tonsillectomy FAMILY HISTORY Mother: at age 81, sepsis after hernia operation - knicked her bowel Father: at 76, ? cancer of GI tract Siblings: 4 brother- of drugs, cocaine no known thyroid or pancreatic cancers SOCIAL HISTORY Background: born and raised in [place], [place]. 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 Active and Recently Outpatient Medications (excluding Supplies): Active Outpatient Medications Status 1) ALBUTEROL [...] BREATHING - RINSE MOUTH AFTER USE 5) TAMSULOSIN HCL 0.4MG CAP TAKE ONE CAPSULE BY MOUTH AT ACTIVE BEDTIME 6) THEOPHYLLINE 400MG 24HR SA TAB TAKE ONE TABLET BY ACTIVE MOUTH ONCE DAILY 7) TIOTROPIUM 2.5MCG/ACTUAT 60D ORAL INHL INHALE 2 PUFFS ACTIVE BY MOUTH ONCE DAILY REVIEW OF SYMPTOMS POSITIVE FOR: NEGATIVE FOR: CONSTITUTION: no weight loss/gain, fatigue, fevers, night sweats HEENT: no vision problems, hearing loss,swallowing difficulties, sinus pain CV: no chest pain, palpitations, dyspnea on exertion, orthopnea RESP: no cough, shortness of breath, wheezing GI: no abdominal pain, N/V/D, constipation, blood in stool, normal appetite : no urinary frequency, nocturia, hematuria MUSC: no joint pain, joint swelling, muscle aches NEURO: no headaches, dizziness, memory loss, tremor, weakness PSYCH: no depression, anxiety, suicidal or homicidal thoughts SKIN: no rash, new skin lesions PHYSICAL EXAM Vitals: - - - - - - - B/P: 138/70 (11/11/2023 12:06) pulse: 107 (11/11/2023 09:02) resp: 16 (11/11/2023 09:02) temp: 98.7 F [37.1 C] (11/11/2023 09:02) Ht: 71 in [180.3 cm] (06/17/2014 07:32) Wgt: 265 lb [120.20 kg] (11/11/2023 09:02) BMI: BMI: 37.0 Exam: - - - - - - - General: obesity, A&O x 3, no acute distress, normal affect and mood Neck: normal thyroid, normal carotids- no bruits CV: RRR S1S2, no murmur Resp: LCTA bilat, no wheezing, rales or rhonchi Neuro: grossly intact, no visible tremor, normal memory and speech Extremities: normal movement of extremities, normal gait, normal strength no LE edema RECENT LABS BMP (FASTING) Collection DT Specimen Test Name Result Units Ref Range 01/04/2023 07:41 SERUM UREA NITROGEN 14 mg/dL 7 - 25 01/04/2023 07:41 SERUM GLUCOSE 108 H mg/dL 65 - 100 01/04/2023 07:41 SERUM SODIUM 142 mmol/L 135 - 145 01/04/2023 07:41 SERUM POTASSIUM 4.3 mmol/L 3.5 - 5.0 01/04/2023 07:41 SERUM CHLORIDE 103 mmol/L 100 - 110 01/04/2023 07:41 SERUM CO2 31 H mEq/L 20 - 01/04/2023 07:41 SERUM CREATININE, Serum 0.95 mg/dL 0.50 - 1.40 04/29/2021 07:41 SERUM eGFR (IDMS) >60 Ref: >=60 LIVER PANEL TREND Collection DT Spec AST ALT T BILI ALK JULIETA T. PROT ALBUMIN 11/03/2023 08:12 SERUM 22 35 0.6 75 6.4 4.1 01/04/2023 07:41 SERUM 22 37 0.6 71 6.4 4.0 06/30/2022 07:42 SERUM 18 32 0.8 79 6.4 4.1 11/19/2021 09:20 SERUM 20 31 0.9 86 6.4 3.9 04/29/2021 07:41 SERUM 15 24 0.7 86 6.3 3.8 LIPID PANEL TREND Collection DT Spec CHOL HDL CHO/HDL LDL-c TRIG 01/04/2023 07:41 SERUM 169 46 3.7 105 92 06/30/2022 07:42 SERUM 167 42 4.0 108 85 11/19/2021 09:20 SERUM 158 42 3.8 95 104 04/29/2021 07:41 SERUM 157 42 3.7 105 49 10/29/2020 11:07 SERUM 154 39 L 3.9 96 97 CBC TREND Collection DT Spec WBC RBC HGB HCT MCV MCH PLT 11/03/2023 08:12 BLOOD 7.31 5.14 16.5 49.0 95.3 32.1 182 01/04/2023 07:41 BLOOD 6.59 5.31 16.6 50.5 H 95.1 31.3 173 06/30/2022 07:42 BLOOD 6.73 5.28 16.8 49.8 94.3 31.8 171 11/19/2021 09:20 BLOOD 7.38 5.07 15.8 46.6 91.9 31.2 179 04/29/2021 07:41 BLOOD 7.36 5.20 16.4 49.4 95.0 31.5 173 PSA TREND Collection DT Spec PSA SR- 04/12/2018 07:01 SERUM 3.13 11/24/2017 07:13 SERUM 4.22 H 01/31/2017 09:29 SERUM 2.84 02/20/2015 08:19 SERUM 3.72 06/17/2014 08:14 SERUM 3.02 HEMOGLOBIN A1C TREND Collection DT Spec HGBA1c 11/19/2021 09:20 BLOOD 5.8 H 08/30/2019 08:33 BLOOD 6.0 H 10/18/2018 07:32 BLOOD 6.1 H 08/01/2017 08:34 BLOOD 5.9 H 07/01/2010 10:33 BLOOD 6.2 H ASSESSMENT AND PLAN 1. Morbid obesity- recommend MOVE program. 2. Hemachromatosis- previously when had 500 cc withdrawn, had pre-syncope- he prefers 450 cc. will change to every OTHER month as his ferritin level is <200 and Hb in normla range 3. BPH- will refer to new urology referral- to consider for TURP 4. dermatology- has upcoming apt on Nov 28 at 9am 5. lower back pain- recommend lidocaine patches and PT referral- agreeable 6. tobacco user- still smokes - amybe 104 cigarettes per month, never buys his own cigarettes- just buys a single form firnds. has had LDCT from [id number]. last 04/2023: Decreasing size of the right lower lobe index nodule. No new concerning pulmonary nodule or mass identified. Return to normal screening interval. Lung-RADS Assessment: Category 2, benign appearance or behavior. Recommendation: Continue annual screening with lung cancer screening CT in 12 months. 7. COPD- on wixela an dspiriva. still smoking- though rarely- encouraged to quit HEALTH MAINTENANCE Colonoscopy - shows diverticulosis/adenomatous polyp/internal hemorrhoids August 2016 and recommended to repeat in 10 years - due 2026 Lung Ca screening- negatiev from [id number], no need to continue LDCTs Abdominal Aortic Aneurysm Screening - negative- had CT abd 2021 Prostate screening - negative PSA- sees urology Tetanus: due every 10 years Pneumonia Vacccine: Flu Vaccine: due yearly Covid Vaccine: due yearly FOLLOW UP f/u in 6 mo with labs- requested 60 min apt as he had numeorus concerns VISIT TYPE: a HIGH complexity visit where 60 minutes was spent in direct patient care, review of records and documentation. Upcoming Appointments: 11/11/2023 09:00 CWM/NO/PACT EIGHT 11/29/2023 09:00 CWM/NO/DERMATOLOGY COOLER TENDER AM 03/20/2024 09:00 CWM/NO/OPTOMETRY/JAX /es/ Oc LORD.OLux PHYSICIAN Signed: 11/11/2023 12:18 PRINCESS RAMON [facility] [place] [facility] Nov 11, 2023 09:05 AM PREVENTIVE MEDICINE NURSING NOTE: LOCAL TITLE: CLINICAL REMINDERS/NURSING STANDARD TITLE: PREVENTIVE MEDICINE NURSING NOTE DATE OF NOTE: NOV 11, 2023@09:05 ENTRY DATE: NOV 11, 2023@09:05:07 AUTHOR: EVELIN DELGADO EXP COSIGNER: URGENCY: STATUS: COMPLETED Suicide Screen: [facility]-SS[facility] Scre[facility] Suicide Severity Rating Scale (C-SSRS) screener 1. Over the past month, have you wished you were or wished you could go to sleep and not wake up? No 2. Over the past month, have you had any actual thoughts of killing yourself? No 3. Over the past month, have you been thinking about how you might do this? Response not required due to responses to other questions. 4. Over the past month, have you had these thoughts and had some intention of acting on them? Response not required due to responses to other questions. 5. Over the past month, have you started to work out or worked out the details of how to kill yourself? Response not required due to responses to other questions. 6. If yes, at any time in the past month did you intend to carry out this plan? Response not required due to responses to other questions. 7. In your lifetime, have you ever done anything, started to do anything, or prepared to do anything to end your life (for example, collected pills, obtained a gun, gave away valuables, went to the roof but didn't jump)? No 8. If YES, was this within the past 3 months? Response not required due to responses to other questions. Falls & Incontinence Screen: Falls Screen: During the past 12 months, did the patient report any falls? 4. No falls within the past year. Incontinence Screen: During the past 12 months, has the patient has any characteristics of incontinence (ability, voiding, leakage, etc.)? No incontinence. Alcohol Use Screen (AUDIT-C): Alcohol Screen: SCREEN FOR ALCOHOL (AUDIT-C) An alcohol screening test (AUDIT-C) was negative (score=1). 1. How often did you have a drink containing alcohol in the past year? Consider a drink to be a 12 ounce can or bottle of regular beer, 8 ounces of malt liquor, a 5 ounce glass of table wine, or a 1.5 ounce shot of liquor (like scotch, gin, or vodka). Monthly or less 2. How many drinks containing alcohol did you have on a typical day when you were drinking in the past year? Zero drinks 3. How often did you have six or more drinks on one occasion in the past year? Never /es/ EVELIN DELGADO LPN Signed: 11/11/2023 09:06 SEAN DELGADO [facility] [place] [facility] Nov 11, 2023 07:56 AM PHYSICIAN NOTE: LOCAL TITLE: MD NOTE STANDARD TITLE: PHYSICIAN NOTE DATE OF NOTE: NOV 11, 2023@07:56 ENTRY DATE: NOV 11, 2023@07:56:05 AUTHOR: PRINCESS RAMON EXP COSIGNER: URGENCY: STATUS: COMPLETED NOTE Has ADDENDA BRAD CUENCA is a 73 year old WHITE MALE who is being seen today in primary care for routine follow up. CARE TEAM Community Primary Care Provider: Dr. Jasper Asencio, [facility]- phone [phone], FAX [phone] newrequesting taht I fax him visist note an dprevious labs [facility] Specialists: Community Specialists: phlebotomy- [facility] For hemachromatosis- monthly blood draws, 500 cc, hold if Hb 12 or lower changed to q 2 mo blood draws, 450 cc, hold for Hb<12 pulmonology- Dr. Dockery, [facility]- Dr. Montanez/Rosi (does not want to go back to) HISTORY PERIOD OF SERVICE - [place] [facility] CONNECTED % - NONE FOUND [employer], [employer] [place], [phone], [facility] HISTORY OF PRESENT ILLNESS Patient presents today for routine follow-up states has been getting monthly blood draws for years- has been getting lightheaded and pre-syncope when full 500 cc drawn, prefers to have 450 cc. ferritin is <200, HCT is within normal range back issues, lidocaine patch given by a friend has been helpful- woudl liek to get obesity- wanting to lose weight. abd weigth affects his back- ability to walk- willing to do MOVE rogram skin lesions- does have upcoming derm apt BPH- on finasteride and tamsulosin- still with increased urination nocturia- considering TURP procedure. did not liek urologist office in [place] RELEVANT PAST MEDICAL HISTORY Active problems - Computerized Problem List is the source for the followin. Centriacinar emphysema 2. Impaired fasting glucose 3. Benign prostatic hyperplasia 4. Obesity 5. Open Angle Glaucoma Suspect 6. Counseling on Sexually Transmitted Diseases 7. History of colonoscopy Multihyperplastic polyps rectosigmoid, 3 - 5 yr f/u, screening colonoscopy was done 2016 8. Erectile dysfunction (SNOMED CT 872807147) 9. Elevated Prostate Specific Antigen (PSA) 10. Impacted cerumen * 11. Depressive Disorder NEC 12. Nicotine dependence (SNOMED CT 48311535) 13. Hemochromatosis (SNOMED CT 151962999) DR Hunter at [facility], phlebotomy. PAST SURGICAL HISTORY appendectomy tonsillectomy FAMILY HISTORY Mother: at age 81, sepsis after hernia operation - knicked her bowel Father: at 76, ? cancer of GI tract Siblings: 4 brother- of drugs, cocaine no known thyroid or pancreatic cancers SOCIAL HISTORY Background: born and raised in [place], [place]. 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 Active and Recently Outpatient Medications (excluding Supplies): Active Outpatient Medications Status 1) ALBUTEROL [...] BREATHING - RINSE MOUTH AFTER USE 5) TAMSULOSIN HCL 0.4MG CAP TAKE ONE CAPSULE BY MOUTH AT ACTIVE BEDTIME 6) THEOPHYLLINE 400MG 24HR SA TAB TAKE ONE TABLET BY ACTIVE MOUTH ONCE DAILY 7) TIOTROPIUM 2.5MCG/ACTUAT 60D ORAL INHL INHALE 2 PUFFS ACTIVE BY MOUTH ONCE DAILY REVIEW OF SYMPTOMS POSITIVE FOR: NEGATIVE FOR: CONSTITUTION: no weight loss/gain, fatigue, fevers, night sweats HEENT: no vision problems, hearing loss,swallowing difficulties, sinus pain CV: no chest pain, palpitations, dyspnea on exertion, orthopnea RESP: no cough, shortness of breath, wheezing GI: no abdominal pain, N/V/D, constipation, blood in stool, normal appetite : no urinary frequency, nocturia, hematuria MUSC: no joint pain, joint swelling, muscle aches NEURO: no headaches, dizziness, memory loss, tremor, weakness PSYCH: no depression, anxiety, suicidal or homicidal thoughts SKIN: no rash, new skin lesions PHYSICAL EXAM Vitals: - - - - - - - B/P: 138/70 (11/11/2023 12:06) pulse: 107 (11/11/2023 09:02) resp: 16 (11/11/2023 09:02) temp: 98.7 F [37.1 C] (11/11/2023 09:02) Ht: 71 in [180.3 cm] (06/17/2014 07:32) Wgt: 265 lb [120.20 kg] (11/11/2023 09:02) BMI: BMI: 37.0 Exam: - - - - - - - General: obesity, A&O x 3, no acute distress, normal affect and mood Neck: normal thyroid, normal carotids- no bruits CV: RRR S1S2, no murmur Resp: LCTA bilat, no wheezing, rales or rhonchi Neuro: grossly intact, no visible tremor, normal memory and speech Extremities: normal movement of extremities, normal gait, normal strength no LE edema RECENT LABS BMP (FASTING) Collection DT Specimen Test Name Result Units Ref Range 01/04/2023 07:41 SERUM UREA NITROGEN 14 mg/dL 7 - 25 01/04/2023 07:41 SERUM GLUCOSE 108 H mg/dL 65 - 100 01/04/2023 07:41 SERUM SODIUM 142 mmol/L 135 - 145 01/04/2023 07:41 SERUM POTASSIUM 4.3 mmol/L 3.5 - 5.0 01/04/2023 07:41 SERUM CHLORIDE 103 mmol/L 100 - 110 01/04/2023 07:41 SERUM CO2 31 H mEq/L 20 - 01/04/2023 07:41 SERUM CREATININE, Serum 0.95 mg/dL 0.50 - 1.40 04/29/2021 07:41 SERUM eGFR (IDMS) >60 Ref: >=60 LIVER PANEL TREND Collection DT Spec AST ALT T BILI ALK JULIETA T. PROT ALBUMIN 11/03/2023 08:12 SERUM 22 35 0.6 75 6.4 4.1 01/04/2023 07:41 SERUM 22 37 0.6 71 6.4 4.0 06/30/2022 07:42 SERUM 18 32 0.8 79 6.4 4.1 11/19/2021 09:20 SERUM 20 31 0.9 86 6.4 3.9 04/29/2021 07:41 SERUM 15 24 0.7 86 6.3 3.8 LIPID PANEL TREND Collection DT Spec CHOL HDL CHO/HDL LDL-c TRIG 01/04/2023 07:41 SERUM 169 46 3.7 105 92 06/30/2022 07:42 SERUM 167 42 4.0 108 85 11/19/2021 09:20 SERUM 158 42 3.8 95 104 04/29/2021 07:41 SERUM 157 42 3.7 105 49 10/29/2020 11:07 SERUM 154 39 L 3.9 96 97 CBC TREND Collection DT Spec WBC RBC HGB HCT MCV MCH PLT 11/03/2023 08:12 BLOOD 7.31 5.14 16.5 49.0 95.3 32.1 182 01/04/2023 07:41 BLOOD 6.59 5.31 16.6 50.5 H 95.1 31.3 173 06/30/2022 07:42 BLOOD 6.73 5.28 16.8 49.8 94.3 31.8 171 11/19/2021 09:20 BLOOD 7.38 5.07 15.8 46.6 91.9 31.2 179 04/29/2021 07:41 BLOOD 7.36 5.20 16.4 49.4 95.0 31.5 173 PSA TREND Collection DT Spec PSA SR- 04/12/2018 07:01 SERUM 3.13 11/24/2017 07:13 SERUM 4.22 H 01/31/2017 09:29 SERUM 2.84 02/20/2015 08:19 SERUM 3.72 06/17/2014 08:14 SERUM 3.02 HEMOGLOBIN A1C TREND Collection DT Spec HGBA1c 11/19/2021 09:20 BLOOD 5.8 H 08/30/2019 08:33 BLOOD 6.0 H 10/18/2018 07:32 BLOOD 6.1 H 08/01/2017 08:34 BLOOD 5.9 H 07/01/2010 10:33 BLOOD 6.2 H ASSESSMENT AND PLAN 1. Morbid obesity- recommend MOVE program. 2. Hemachromatosis- previously when had 500 cc withdrawn, had pre-syncope- he prefers 450 cc. will change to every OTHER month as his ferritin level is <200 and Hb in normla range 3. BPH- will refer to new urology referral- to consider for TURP 4. dermatology- has upcoming apt on Nov 28 at 9am 5. lower back pain- recommend lidocaine patches and PT referral- agreeable 6. tobacco user- still smokes - amybe 104 cigarettes per month, never buys his own cigarettes- just buys a single form firnds. has had LDCT from [id number]. last 04/2023: Decreasing size of the right lower lobe index nodule. No new concerning pulmonary nodule or mass identified. Return to normal screening interval. Lung-RADS Assessment: Category 2, benign appearance or behavior. Recommendation: Continue annual screening with lung cancer screening CT in 12 months. 7. COPD- on wixela an dspiriva. still smoking- though rarely- encouraged to quit HEALTH MAINTENANCE Colonoscopy - shows diverticulosis/adenomatous polyp/internal hemorrhoids August 2016 and recommended to repeat in 10 years - due 2026 Lung Ca screening- negatiev from [id number], no need to continue LDCTs Abdominal Aortic Aneurysm Screening - negative- had CT abd 2021 Prostate screening - negative PSA- sees urology Tetanus: due every 10 years Pneumonia Vacccine: Flu Vaccine: due yearly Covid Vaccine: due yearly FOLLOW UP f/u in 6 mo with labs- requested 60 min apt as he had numeorus concerns VISIT TYPE: a HIGH complexity visit where 60 minutes was spent in direct patient care, review of records and documentation. Upcoming Appointments: 11/11/2023 09:00 CWM/NO/PACT EIGHT 11/29/2023 09:00 CWM/NO/DERMATOLOGY COOLER TENDER AM 03/20/2024 09:00 CWM/NO/OPTOMETRY/JAX /es/ PRINCESS RAMON D.O. PHYSICIAN Signed: 11/11/2023 12:18 11/11/2023 ADDENDUM STATUS: COMPLETED please fax to outside PCP Iesha Tomity-FAX [phone] /es/ PRINCESS RAMON D.O. PHYSICIAN Signed: 11/11/2023 12:19 Receipt Acknowledged By: * AWAITING SIGNATURE * JACOB DEL TORO TINA [facility] [place] [facility] Nov 03, 2023 01:08 PM LETTERS: LOCAL TITLE: PATIENT LETTER (T) STANDARD TITLE: LETTERS DATE OF NOTE: NOV 03, 2023@13:08 ENTRY DATE: NOV 03, 2023@13:09:02 AUTHOR: PRINCESS RAMON EXP COSIGNER: URGENCY: STATUS: COMPLETED DEPARTMENT OF [facility] Toll Free Number Primary Care Telephone Assistance can be reached at extension [phone] [facility] scheduling can be reached at extension [phone] [facility] scheduling can be reached at ext [phone] BRAD HERMAN [address], [address] Dear , Your recent test results are as follows: ferritin level is good as <300. will fax to [facility] as well LAB CHEMISTRY & HEMATOLOGY Collection DT Specimen Test Name Result Units Ref Range 11/03/2023 08:12 BLOOD WBC 7.31 K/cmm 4.50 - 11.00 RBC 5.14 M/cmm 4.23 - 5.66 HGB 16.5 g/dL 12.8 - 17 HCT 49.0 % 39.2 - 50.4 MCV 95.3 fl 82 - 99 MCH 32.1 pg 26.2 - 32.6 MCHC 33.7 g/dL 30.8 - 35.1 RDW-CV 12.3 % 12.0 - 16.0 PLT 182 K/cmm 140 - 360 11/03/2023 08:12 SERUM FERRITIN 144 ng/mL 20 - 300 11/03/2023 08:12 SERUM TIBC 268 ug/dL 204 - 475 IRON 195 H ug/dL 40 - 160 TranSat 72.8 H % 20.0 - 50.0 Transferrin (TRF) 203 mg/dL 200 - 360 PROTEIN,TOTAL 6.4 g/dL 6.0 - 8.3 ALBUMIN 4.1 g/dL 3.5 - 5.0 ALK JULIETA 75 U/L 40 - 150 AST 22 U/L 5 - 34 BILIRUBIN, TOTAL 0.6 mg/dL 0.2 - 1.2 ALT 35 U/L <6 - 55 Please call if you have any questions or concerns. Upcoming Appointments: 11/11/2023 09:00 CWM/NO/PACT EIGHT 11/29/2023 09:00 CWM/NO/DERMATOLOGY COOLER TENDER AM 03/20/2024 09:00 CWM/NO/OPTOMETRY/JAX Sincerely, Your Primary Care Team [facility] [address] [facility] [address] [place] [address] [place] [address] [phone] [place] [facility] [address] [place] [address] [place] [address] [phone] [facility] [address] [facility] [place] [address] [place] [address] PRINCESS RAMON [place] [facility]
--- OUTSIDE RECORDS SUMMARY | 2024-02-13 13:04 | XMS_ITS ---
Author Name [facility] Organization [facility] Address [address] [place] [address] Care Team Providers Care Pot Filler Name Role Phone PRINCESS RAMON Primary Care [...] PART A Jul 15, 2013 PART A [id number] BRAD CUENCA JR PATIENT MEDICARE (WNR) MEDICARE (M) PART B Jul 15, 2013 PART B [id number] BRAD CUENCA JR PATIENT Selected Encounter This section includes the information on record at [place] for the Encounter. Date/Time Encounter Type Encounter Description Reason Pro vider Source Nov 25, 2023 12:00 AM Outpatient Encounter COMMUNITY CARE [...] 20 appointments. The data comes from all [facility]. Appointment Date/Time Appointment Type Appointme nt Facility Name Nov 29, 2023 09:00 AM AMBULATORY - MEDICINE [facility] Feb 21, 2024 09:45 AM [facility] Feb 27, 2024 10:00 AM AMBULATORY - MEDICINE [facility] NTRL TRN [facility] Mar 20, 2024 09:00 [facility] May 10, 2024 09:30 AM AMBULATORY - NONE [facility] May 10, 2024 10:30 AM AMBULATORY - MEDICINE [facility] Active, Pending, and Scheduled Orders This section includes a listing of several types of active, pending, and scheduled orders, including clinic medications orders, diagnostic test orders, procedure orders and consult orders; where the start date of the order is 45 days before the date of the Encounter or 45 days after the date of theEncounter. The data comes from all [facility]. Test Date/Time Test Type Test Details Facility Name Nov 11, 2023 12:03 PM Consult Order COMMUNITY CARE-UROLOGY Cons Mental Hygienist's Choice [facility] Jan 05, 2024 08:22 AM Consult Order COMMUNITY CARE-PULMONARY REHAB Cons Mental Hygienist's Choice [facility] Lab Results: +/- 30 days of the encounter This section includes the Chemistry and Hematology Lab Results on record with [place] for the patient. Radiology Reports and Pathology Reports are provided separately, in subsequent sections. Lab Results This section contains the Chemistry/Hematology Results that were resulted 30 days before or 30 daysafter the date of the Encounter. Date/Time Source Result Type Result - Unit Interpretation Reference Range Comment Nov 03, 2023 08:12 AM [facility] FERRITIN Specimen Type: SERUM No comment entered. Ordering Provider: PRINCESS RAMON Report Released Date/Time: Nov 01, 2023 12:47 PM Reporting Lab: [address] [place] [address] Performing Lab: [facility] [address] [facility] [address] FERRITIN 144 ng/mL 20-300 Nov 03, 2023 08:12 AM [facility] IRON & TIBC PANEL Specimen Type: SERUM No comment entered. Ordering Provider: PRINCESS RAMON Report Released Date/Time: Nov 01, 2023 12:47 PM Reporting Lab: [facility] [address] [facility] [address] Performing Lab: [facility] [address] [address] TIBC 268 ug/dL 204-475 IRON 195 ug/dL H 40-160 Transferrin Saturation 72.8 H 20.0-50.0 Transferrin (TRF) 203 mg/dL 200-360 Nov 03, 2023 08:12 AM [facility] LIVER FUNCTION Specimen Type: SERUM No comment entered. Ordering Provider: PRINCESS RAMON Report Released Date/Time: Nov 01, 2023 12:47 PM Reporting Lab: [address] [address] Performing Lab: [address] [address] PROTEIN,TOTAL 6.4 g/dL 6.0-8.3 ALBUMIN 4.1 g/dL 3.5-5.0 ALKALINE PHOSPHATASE 75 U/L 40-150 AST 22 U/L 5-34 ALT 35 U/L BILIRUBIN, TOTAL 0.6 mg/dL 0.2-1.2 Nov 03, 2023 08:12 AM [facility] CBC Specimen Type: BLOOD No comment entered. Ordering Provider: PRINCESS RAMON Report Released Date/Time: Nov 01, 2023 12:47 PM Reporting Lab: [facility] [address] [facility] [address] Performing Lab: [address] [address] WBC 7.31 10*3/uL 4.50-11.00 RBC 5.14 10*6/uL [...] took place. Date/Time Current Smoking Status Comment [facility] Jan 12, 2023 09:00 AM VA-TOBACCO USER EVERY DAY [facility] [place] [facility] Tobacco Use History This section includes a history of the smoking, or tobacco-related health factors, that were collected on or before the date of the Encounter. The data comes from the [facility] facility where the Encounter took place. Date/Time Smoking Status/Tobac co Use Comment Facility Jan 12, 2023 09:00 AM VA-TOBACCO USE 30 YEARS OR MORE [facility] [place] [facility] Jan 12, 2023 09:00 AM VA-TOBACCO USE ADVICE [facility] [place] [facility] Jan 12, 2023 09:00 AM VA-TOBACCO USE COUGAR HUNTER NO [facility] [place] [facility] Jan 12, 2023 09:00 AM VA-TOBACCO USE MED NO [facility] [place] [facility] Jan 12, 2023 09:00 AM VA-TOBACCO USER EVERY DAY [facility] [place] [facility] Oct 23, 2021 08:00 AM VA-TOBACCO DOESNT USE WI 30 MIN WAKEUP [facility] [place] [facility] Oct 23, 2021 08:00 AM VA-TOBACCO USE 30 YEARS OR MORE [facility] [place] [facility] Oct 23, 2021 08:00 AM VA-TOBACCO USE ADVICE [facility] [place] [facility] Oct 23, 2021 08:00 AM VA-TOBACCO USE COUGAR HUNTER NO [facility] [place] [facility] Oct 23, 2021 08:00 AM VA-TOBACCO USE MED NO [facility] [place] [facility] Oct 23, 2021 08:00 AM VA-TOBACCO USER EVERY DAY [facility] [place] [place] [facility] Oct 29, 2020 10:00 AM VA-TOBACCO DOESNT USE WI 30 MIN WAKEUP [facility] [place] [facility] Oct 29, 2020 10:00 AM VA-TOBACCO USE 30 YEARS OR MORE [facility] [place] [facility] Oct 29, 2020 10:00 AM VA-TOBACCO USE ADVICE [facility] [place] [facility] Oct 29, 2020 10:00 AM VA-TOBACCO USE COUGAR HUNTER YES [facility] [place] [facility] Oct 29, 2020 10:00 AM VA-TOBACCO USE MED NOTIFY PROVIDER [facility] [place] [facility] Oct 29, 2020 10:00 AM VA-TOBACCO USER EVERY DAY [facility] [place] [place] [facility] Oct 10, 2019 11:00 AM VA-TOBACCO FORMER USER [facility] [place] [facility] Oct 10, 2019 11:00 AM VA-TOBACCO QUIT < 1 YEAR [facility] [place] [place] [facility] Oct 26, 2018 07:55 AM VA-TOBACCO USE > 15 LESS THAN 30 YEARS [facility] [place] [facility] Oct 26, 2018 07:55 AM VA-TOBACCO USE ADVICE [facility] [place] [facility] Oct 26, 2018 07:55 AM VA-TOBACCO USE COUGAR HUNTER NO [facility] [place] [facility] Oct 26, 2018 07:55 AM VA-TOBACCO USE MED NO [facility] [place] [facility] Oct 26, 2018 07:55 AM VA-TOBACCO USE WI 30 MIN OF WAKEUP [facility] [place] [facility] Oct 26, 2018 07:55 AM VA-TOBACCO USER EVERY DAY [facility] [place] [place] [facility] Aug 04, 2017 08:53 AM CURRENT SMOKER [facility] [place] [facility] Aug 04, 2017 08:53 AM V1-PT DECLINES REF TO TOBACCO CESS PRGM [facility] [place] [facility] Aug 04, 2017 08:53 AM V1-PT DECLINES TOBACCO CESSATION MEDS [facility] [place] [facility] Aug 04, 2017 08:53 AM V1-PT THINKING ABOUT QUIT TOBACCO USE [facility] [place] [facility] Jan 31, 2017 09:51 AM QUIT TOBACCO USE IN PAST YEAR 31 days [facility] [place] [facility] Jan 26, 2016 08:36 AM CURRENT SMOKER [facility] [place] [facility] Jan 26, 2016 08:36 AM V1-PT DECLINES REF TO TOBACCO CESS PRGM [facility] [facility] Jan 26, 2016 08:36 AM V1-PT DECLINES TOBACCO CESSATION MEDS [facility] [place] [facility] Jan 26, 2016 08:36 AM V1-PT THINKING ABOUT QUIT [facility] [place] [facility] Feb 20, 2015 10:25 AM QUIT TOBACCO USE IN [facility]ST YEAR [facility] [place] [facility] June 17, 2014 07:37 AM CURRENT SMOKER Reports being an off and on smoker -cigarettes [facility] [place] [facility] June 17, 2014 07:37 AM V1-PT DECLINES REF TO TOBACCO CESS PR[facility] [place] [facility] June 17, 2014 07:37 AM V1-PT DECLINES TOBACCO CESSATION MEDS [facility] [place] [facility] June 17, 2014 07:37 AM V1-PT THINKING ABOUT QUIT TOBACCO [facility] [place] [facility] Sep 14, 2011 09:51 AM CURRENT SMOKER less than a pack a day [facility] [place] [facility] Sep 14, 2011 09:51 AM V1-PT DECLINES REF TO TOBACCO CESS PRGM [facility] [place] [facility] Sep 14, 2011 09:51 AM V1-PT DECLINES TOBACCO CESSATION MEDS [facility] [facility] Sep 14, 2011 09:51 AM V1-PT THINKING ABOUT QUIT TOBACCO USE [facility] [place] [facility] Mar 09, 2010 09:32 AM CURRENT SMOKER 1 ppd [facility] [place] [facility] Mar 09, 2010 09:32 AM V1-PT DECLINES TOBACCO [facility]ESSATION [facility]S [facility] Mar 09, 2010 09:32 AM V1-PT REF TO NON-VA TOBACCO CESS PR[facility] Mar 09, 2010 09:32 AM V1-PT THINKING ABOUT QUIT TOBACCO USE [facility] Sep 29, 2009 02:07 PM V1-PT DECLINES REF TO TOBACCO CESS PRGM [facility] Sep 29, 2009 02:07 PM V1-PT DECLINES TOBACCO CESSATION MEDS [facility] Sep 29, 2009 02:07 PM V1-PT NOT INTERESTED IN QUIT TOBACCO USE [facility] Jan 29, 2009 11:00 AM CURRENT SMOKER 1 ppd [facility] Jan 29, 2009 11:00 AM V1-PT DECLINES TOBACCO CESSATION MEDS [facility] Jan 29, 2009 11:00 AM V1-PT READY TO QUIT TOBACCO USE [facility] Mar 17, 2005 08:36 AM CURRENT SMOKER [facility] Advance Directives: All historical and current [...] 11, 2023 ADVANCE DIRECTIVE JACOB DEL TORO [facility] Encounter Notes: All associated encounter notes This section contains the clinical notes associated to the Encounter. Date/Time Encounter Note(s) Provider Source Nov 25, 2023 12:00 AM NONVA CONSULT: LOCAL TITLE: COMMUNITY CARE-CONSULT RESULT NOTE STANDARD TITLE: NONVA CONSULT DATE OF NOTE: NOV 25, 2023 ENTRY DATE: FEB 10, 2024@09:38:45 AUTHOR: DESIREE TURK COSIGNER: URGENCY: STATUS: COMPLETED VistA Imaging - Scanned Document SCANNED DOCUMENT SIGNATURE NOT REQUIRED Electronically Filed: 02/10/2024 by: DESIREE CHRISTOPHER CNTRL [facility]
--- OUTSIDE RECORDS SUMMARY | 2024-02-13 13:04 | XMS_ITS | Encounter Summary ---
Author Name [facility] Organization [facility] Address [address] [place] [address] Care Team Providers Care Grinding Machine Operator Portable Name Role Phone PRINCESS RAMON Primary Care [...] PART A Jul 15, 2013 PART A [id number] BRAD CUENCA JR PATIENT MEDICARE (WNR) MEDICARE (M) PART B Jul 15, 2013 PART B [id number] BRAD CUENCA JR PATIENT Selected Encounter This section includes the information on record at [place] for the Encounter. Date/Time Encounter Type Encounter Description Reason Pro vider Source Dec 07, 2023 12:00 AM Outpatient Encounter EVENT (HISTORICAL) IHE Encounter Template Text not used by [place] Plan of Treatment: Future Appointments (+ 6 [...] 20 appointments. The data comes from all [facility]. Appointment Date/Time Appointment Type Appointme nt Facility Name Feb 21, 2024 09:45 AM [facility] Feb 27, 2024 10:00 AM [facility] Mar 20, 2024 09:00 AM [facility] May 10, 2024 09:30 AM [facility] May 10, 2024 10:30 AM AMBULATORY MEDICINE [facility] Active, Pending, and Scheduled Orders This section includes a listing of several types of active, pending, and scheduled orders, including clinic medications orders, diagnostic test orders, procedure orders and consult orders; where the start date of the order is 45 days before the date of the Encounter or 45 days after the date of theEncounter. The data comes from all [facility]. Test Date/Time Test Type Test Details Facility Name Nov 11, 2023 12:03 PM Consult Order COMMUNITY CARE-UROLOGY Cons Traveling Accountant's Choice [facility] Jan 05, 2024 08:22 AM Consult Order COMMUNITY CARE-PULMONARY REHAB Cons Traveling Accountant's Choice [facility] Social History: Smoking Status (Most current) and Tobacco Use (All prior to encounter date) This section includes the most current, and the historical, smoking and tobacco- related health factors from the [place] facility where the Encounter took place. Current Smoking Status This section includes the most current smoking, or tobacco-related health factor, from the [place] facility where the Encounter took place. Date/Time Current Smoking Status Comment Shanell shanks Jan 12, 2023 09:00 AM VA-TOBACCO USER EVERY DAY [facility] Tobacco Use History This section includes a history of the smoking, or tobacco-related health factors, that were collected on or before the date of the Encounter. The data comes from the [place] facility where the Encounter took place. Date/Time Smoking Status/Tobac co Use Comment Facility Jan 12, 2023 09:00 AM VA-TOBACCO USE 30 YEARS OR MORE [facility] [place] [facility] Jan 12, 2023 09:00 AM VA-TOBACCO USE ADVICE [facility] [place] [facility] Jan 12, 2023 09:00 AM VA-TOBACCO USE RIVET CATCHER NO [facility] [place] [facility] Jan 12, 2023 09:00 AM VA-TOBACCO USE MED NO [facility] [place] [facility] Jan 12, 2023 09:00 AM VA-TOBACCO USER EVERY DAY [facility] [place] [facility] Oct 23, 2021 08:00 AM VA-TOBACCO DOESNT USE WI 30 MIN WAKEUP [facility] [place] [facility] Oct 23, 2021 08:00 AM VA-TOBACCO USE 30 YEARS OR MORE [facility] [place] [facility] Oct 23, 2021 08:00 AM VA-TOBACCO USE ADVICE [facility] [place] [facility] Oct 23, 2021 08:00 AM VA-TOBACCO USE RIVET CATCHER NO [facility] [place] [facility] Oct 23, 2021 08:00 AM VA-TOBACCO USE MED NO [facility] [place] [facility] Oct 23, 2021 08:00 AM VA-TOBACCO USER EVERY DAY [facility] [place] [facility] Oct 29, 2020 10:00 AM VA-TOBACCO DOESNT USE WI 30 MIN WAKEUP [facility] [place] [facility] Oct 29, 2020 10:00 AM VA-TOBACCO USE 30 YEARS OR MORE [facility] [place] [facility] Oct 29, 2020 10:00 AM VA-TOBACCO USE ADVICE [facility] [place] [facility] Oct 29, 2020 10:00 AM VA-TOBACCO USE RIVET CATCHER YES [facility] [place] [facility] Oct 29, 2020 10:00 AM VA-TOBACCO USE MED NOTIFY PROVIDER [facility] [place] [facility] Oct 29, 2020 10:00 AM VA-TOBACCO USER EVERY DAY [facility] [place] [facility] Oct 10, 2019 11:00 AM VA-TOBACCO FORMER USER [facility] [place] [facility] Oct 10, 2019 11:00 AM VA-TOBACCO QUIT < 1 YEAR [facility] [place] [facility] Oct 26, 2018 07:55 AM VA-TOBACCO USE > 15 LESS THAN 30 YEARS [facility] [place] [facility] Oct 26, 2018 07:55 AM [facility] [place] [facility] Oct 26, 2018 07:55 AM VA-TOBACCO USE RIVET CATCHER NO [facility] [place] [facility] Oct 26, 2018 07:55 AM VA-TOBACCO USE MED NO [facility] [place] [facility] Oct 26, 2018 07:55 AM VA-TOBACCO USE WI 30 MIN [facility] [place] [facility] Oct 26, 2018 07:55 AM VA-TOBACCO USER EVERY DAY [facility] [place] [facility] Aug 04, 2017 08:53 AM CURRENT SMOKER [facility] [place] [facility] Aug 04, 2017 08:53 AM V1-PT DECLINES REF TO TOBACCO CESS PRGM [facility] [place] [facility] Aug 04, 2017 08:53 AM V1-PT DECLINES TOBACCO CESSATION MEDS [facility] [place] [facility] Aug 04, 2017 08:53 AM V1-PT THINKING ABOUT QUIT TOBACCO USE [facility] [place] [facility] Jan 31, 2017 09:51 AM QUIT TOBACCO USE IN PAST YEAR 31 days [facility] [place] [facility] Jan 26, 2016 08:36 AM CURRENT SMOKER [facility] [place] [facility] Jan 26, 2016 08:36 AM V1-PT DECLINES REF TO TOBACCO CESS PRGM [facility] [place] [facility] Jan 26, 2016 08:36 AM V1-PT DECLINES TOBACCO CESSATION MEDS [facility] [place] [facility] Jan 26, 2016 08:36 AM V1-PT THINKING ABOUT QUIT TOBACCO USE [facility] [place] [facility] Feb 20, 2015 10:25 AM QUIT TOBACCO USE IN PAST YEAR [facility] [place] [facility] June 17, 2014 07:37 AM CURRENT SMOKER Reports being an off and on smoker -cigarettes [facility] [place] [facility] June 17, 2014 07:37 AM V1-PT DECLINES REF TO TOBACCO CESS PRGM [facility] [place] [facility] June 17, 2014 07:37 AM V1-PT DECLINES TOBACCO CESSATION MEDS [facility] [place] [facility] June 17, 2014 07:37 AM V1-PT THINKING ABOUT QUIT TOBACCO USE [facility] [place] [facility] Sep 14, 2011 09:51 AM CURRENT SMOKER less than a pack a day [facility] [place] [facility] Sep 14, 2011 09:51 AM V1-PT DECLINES REF TO TOBACCO CESS PRGM [facility] [place] [facility] Sep 14, 2011 09:51 AM V1-PT DECLINES TOBACCO CESSATION MEDS [facility] [place] [facility] Sep 14, 2011 09:51 AM V1-PT THINKING ABOUT QUIT TOBACCO USE [facility] [place] [facility] Mar 09, 2010 09:32 AM CURRENT SMOKER 1 ppd [facility] [place] [facility] Mar 09, 2010 09:32 AM V1-PT DECLINES TOBACCO CESSATION MEDS [facility] [place] [facility] Mar 09, 2010 09:32 AM V1-PT REF TO NON-VA TOBACCO CESS PRGM [facility] [place] [facility] Mar 09, 2010 09:32 AM V1-PT THINKING ABOUT QUIT TOBACCO USE [facility] [place] [facility] Sep 29, 2009 02:07 PM V1-PT DECLINES REF TO TOBACCO CESS PRGM [facility] [place] [facility] Sep 29, 2009 02:07 PM V1-PT DECLINES TOBACCO CESSATION MEDS [facility] [place] [facility] Sep 29, 2009 02:07 PM V1-PT NOT INTERESTED IN QUIT TOBACCO USE [facility] [place] [facility] Jan 29, 2009 11:00 AM CURRENT SMOKER 1 ppd [facility] [place] [facility] Jan 29, 2009 11:00 AM V1-PT DECLINES TOBACCO CESSATION MEDS [facility] [place] [facility] Jan 29, 2009 11:00 AM V1-PT READY TO QUIT TOBACCO USE [facility] [place] [facility] Mar 17, 2005 08:36 AM CURRENT SMOKER [facility] [place] [facility] Advance Directives: All historical and current Section Date Range: From patient's date of to the date document was created. This section includes ALL of a patient's completed or amended [place] Advance and Rescinded Directives. The entries below indicate that a directive exists for the patient, but an actual copy is not included with this document. The data comes from all [place] facilities. Date Advance Directives Provider Source Nov 11, 2023 ADVANCE DIRECTIVE JACOB DEL TORO [facility] Encounter Notes: All associated encounter notes This section contains the clinical notes associated to the Encounter. Date/Time Encounter Note(s) Provider Source Dec 07, 2023 12:00 AM NONVA DIAGNOSTIC S ARON REPORT: LOCAL TITLE: NON-VA DIAGNOSTICS STANDARD TITLE: NONVA DIAGNOSTIC STUDY REPORT DATE OF NOTE: DEC 07, 2023 ENTRY DATE: JAN 03, 2024@09:43:37 AUTHOR: ADIA KEITH EXP COSIGNER: URGENCY: STATUS: COMPLETED VistA Imaging - Scanned Document SCANNED DOCUMENT SIGNATURE NOT REQUIRED Electronically Filed: 01/03/2024 by: ADIA KEITH [employer] SUPPORT ADIA KEITH [facility]
--- OUTSIDE RECORDS SUMMARY | 2024-02-13 13:04 | XMS_ITS ---
Author Name [facility] [place] [facility] [place] Address [address] [place] [address] Care Team Providers Care Headline Writer Name Role Phone PRINCESS RAMON Primary Care [...] PART A Jul 15, 2013 PART A [id number] [facility] [phone] BRAD CUENCA JR PATIENT MEDICARE (WNR) MEDICARE (M) PART B Jul 15, 2013 PART B [id number] BRAD CUENCA JR PATIENT Selected Encounter This section includes the information on record at [place] for the Encounter. Date/Time Encounter Type Encounter Description Reason Pro vider Source Nov 25, 2023 08:54 AM Outpatient Encounter ADMIN PAT ACTIVTIES (MASNONCT) [...] 29, 2023 09:00 AM AMBULATORY - MEDICINE [facility] N[facility]L [facility] Feb 21, 2024 09:45 AM AMBULATORY - MEDICINE [place] [facility] Feb 27, 2024 10:00 AM AMBULATORY - MEDICINE [place] C [place] [facility] Mar 20, 2024 09:00 AM AMBULATORY - MEDICINE [place] C [place] [facility] May 10, 2024 09:30 AM AMBULATORY - NONE [place] [facility] May 10, 2024 10:30 AM AMBULATORY - MEDICINE [facility] NTRL TRN [facility] Active, Pending, and Scheduled Orders This section includes a listing of several types of active, pending, and scheduled orders, including clinic medications orders, diagnostic test orders, procedure orders and consult orders; where the start date of the order is 45 days before the date of the Encounter or 45 days after the date of theEncounter. The data comes from all [facility]. Test Date/Time Test Type Test Details Facility Name Nov 11, 2023 12:03 PM Consult Order COMMUNITY CARE-UROLOGY Cons Supervisor Forming Department's Choice [facility] Jan 05, 2024 08:22 AM Consult Order COMMUNITY CARE-PULMONARY REHAB Cons Supervisor Forming Department's Choice [facility] Lab Results: +/- 30 days of the encounter This section includes the Chemistry and Hematology Lab Results on record with [place] for the patient. Radiology Reports and Pathology Reports are provided separately, in subsequent sections. Lab Results This section contains the Chemistry/Hematology Results that were resulted 30 days before or 30 daysafter the date of the Encounter. Date/Time Source Result Type Result - Unit Interpretation Reference Range Comment Nov 03, 2023 08:12 AM [facility] FERRITIN Specimen Type: SERUM No comment entered. Ordering Provider: PRINCESS RAMON Report Released Date/Time: Nov 01, 2023 12:47 PM Reporting Lab: [facility] [address] [facility] [address] Performing Lab: [facility]N [facility] [address] [facility] [address] FERRITIN 144 ng/mL 20-300 Nov 03, 2023 08:12 AM [facility] IRON & TIBC PANEL Specimen Type: SERUM No comment entered. Ordering Provider: PRINCESS RAMON Report Released Date/Time: Nov 01, 2023 12:47 PM Reporting Lab: [facility]N [facility] [address] [facility] [address] Performing Lab: [facility]ITALUSEJ[facility] [address] [facility] [address] TIBC 268 ug/dL 204-475 IRON 195 ug/dL H 40-160 Transferrin Saturation 72.8 H 20.0-50.0 Transferrin (TRF) 203 mg/dL 200-360 Nov 03, 2023 08:12 AM [facility] LIVER FUNCTION Specimen Type: SERUM No comment entered. Ordering Provider: PRINCESS RAMON Report Released Date/Time: Nov 01, 2023 12:47 PM Reporting Lab: [facility]ITALUSEJ[facility] [address] [phone] Performing Lab: [facility]OSPITALUSE[address] [address] PROTEIN,TOTAL 6.4 g/dL 6.0-8.3 ALBUMIN 4.1 g/dL 3.5-5.0 ALKALINE PHOSPHATASE 75 U/L 40-150 AST 22 U/L 5-34 ALT 35 U/L BILIRUBIN, TOTAL 0.6 mg/dL 0.2-1.2 Nov 03, 2023 08:12 AM [facility] CBC Specimen Type: BLOOD No comment entered. Ordering Provider: PRINCESS RAMON Report Released Date/Time: Nov 01, 2023 12:47 PM Reporting Lab: [facility]ITAL[facility]ETS [facility] [address] [address] Performing Lab: [facility]OSPITALUSE[address] [address] WBC 7.31 10*3/uL 4.50-11.00 RBC 5.14 10*6/uL [...] took place. Date/Time Current Smoking Status Comment [facility] Jan 12, 2023 09:00 AM VA-TOBACCO DOESNT USE WI 30 MIN WAKEUP [place] CNTRL WSTRN [facility]ITALUSE[facility] Tobacco Use History This section includes a history of the smoking, or tobacco-related health factors, that were collected on or before the date of the Encounter. The data comes from the [place] facility where the Encounter took place. Date/Time Smoking Status/Tobac co Use Comment [facility] Jan 12, 2023 09:00 AM VA-TOBACCO USE 30 YEARS OR MORE [place] [facility] Jan 12, 2023 09:00 AM VA-TOBACCO USE ADVICE [place] [facility] Jan 12, 2023 09:00 AM VA-TOBACCO USE PATROL SUPERVISOR NO [place] [facility] Jan 12, 2023 09:00 AM VA-TOBACCO USE MED NO [place] [facility] Jan 12, 2023 09:00 AM VA-TOBACCO USER EVERY DAY [place] [facility] Oct 23, 2021 08:00 AM VA-TOBACCO DOESNT USE WI 30 MIN WAKEUP [place] [facility] Oct 23, 2021 08:00 AM VA-TOBACCO USE 30 YEARS OR MORE [place] [facility] Oct 23, 2021 08:00 AM VA-TOBACCO USE ADVICE [place] [facility] Oct 23, 2021 08:00 AM VA-TOBACCO USE PATROL SUPERVISOR NO [place] [facility] [place] [facility] Oct 29, 2020 10:00 AM VA-TOBACCO USE PATROL SUPERVISOR YES [place] [facility] Oct 29, 2020 10:00 AM VA-TOBACCO USE MED NOTIFY PROVIDER [place] [facility] Oct 29, 2020 10:00 AM VA-TOBACCO USER EVERY DAY [place] [facility] Oct 10, 2019 11:00 AM VA-TOBACCO FORMER USER [place] [facility] Oct 10, 2019 11:00 AM VA-TOBACCO QUIT < 1 YEAR [place] [facility] Oct 26, 2018 07:55 AM VA-TOBACCO USE > 15 LESS THAN 30 YEARS [place] [facility] Oct 26, 2018 07:55 AM VA-TOBACCO USE ADVICE [place] [facility] Oct 26, 2018 07:55 AM VA-TOBACCO USE PATROL SUPERVISOR NO [place] [place] [facility] Oct 26, 2018 07:55 AM VA-TOBACCO USE MED NO [place] [facility] Oct 26, 2018 07:55 AM VA-TOBACCO USE WI 30 MIN OF WAKEUP [place] [facility] Oct [...] TOBACCO CESS PRGM [place] [facility] [place] [facility] Jan 26, 2016 08:36 AM V1-PT DECLINES TOBACCO CESSATION MEDS [place] [facility] Jan 26, 2016 08:36 AM V1-PT THINKING ABOUT QUIT TOBACCO USE [place] [facility] Feb 20, 2015 10:25 AM QUIT TOBACCO USE IN PAST YEAR [place] [facility] June 17, 2014 07:37 AM CURRENT SMOKER Reports being an off and on smoker -cigarettes [place] [facility] June 17, 2014 07:37 AM V1-PT DECLINES REF TO TOBACCO CESS PRGM [place] [facility] [place] [facility] June 17, 2014 07:37 AM V1-PT DECLINES TOBACCO CESSATION MEDS [facility] June 17, 2014 07:37 AM V1-PT THINKING ABOUT QUIT TOBACCO USE [place] [facility] Sep 14, 2011 09:51 AM CURRENT SMOKER less than a pack a day [place] [place] [facility] Sep 14, 2011 09:51 AM V1-PT DECLINES REF TO TOBACCO CESS PRGM [place] [place] [facility] Sep 14, 2011 09:51 AM V1-PT DECLINES TOBACCO CESSATION MEDS [place] [facility] Sep 14, 2011 09:51 AM V1-PT THINKING ABOUT QUIT TOBACCO USE [place] [facility] Mar 09, 2010 09:32 AM CURRENT SMOKER 1 ppd [place] [facility] Mar 09, 2010 09:32 AM V1-PT DECLINES TOBACCO CESSATION MEDS [facility]ITALRTAYL[facility]ILITYTRN [facility] Mar 09, 2010 09:32 AM V1-PT REF TO NON-VA TOBACCO CESS PRGM [facility] Mar 09, 2010 09:32 AM V1-PT THINKING ABOUT QUIT TOBACCO USE [facility] Sep 29, 2009 02:07 PM V1-PT DECLINES REF TO TOBACCO CESS PRGM [facility]RTAY[facility]ILITYTR[facility] Sep 29, 2009 02:07 PM V1-PT DECLINES TOBACCO CESSATION MEDS [facility] Sep 29, 2009 02:07 PM V1-PT NOT INTERESTED IN QUIT TOBACCO USE [facility] Jan 29, 2009 11:00 AM CURRENT SMOKER 1 ppd [facility] Jan 29, 2009 11:00 AM V1-PT DECLINES TOBACCO CESSATION MEDS [facility] Jan 29, 2009 11:00 AM V1-PT READY TO QUIT TOBACCO USE [facility] Mar 17, 2005 08:36 AM CURRENT SMOKER [facility] Advance Directives: All historical and current [...] 11, 2023 ADVANCE DIRECTIVE JACOB DEL TORO [facility] NTRL [facility] Encounter Notes: All associated encounter notes This section contains the clinical notes associated to the Encounter. Date/Time Encounter Note(s) Provider Source Nov 25, 2023 09:54 AM ADDENDUM: LOCAL TITLE: Addendum STANDARD TITLE: ADDENDUM DATE OF NOTE: NOV 25, 2023@09:54 ENTRY DATE: NOV 25, 2023@09:54:01 AUTHOR: MARLEE CLINTON EXP COSIGNER: URGENCY: STATUS: COMPLETED ALERT TO PCP for consideration of requested medication renewal and inreased # of inhalers per note /natalie/ MARLEE CLINTON RN REGISTERED NURSE Signed: 11/25/2023 09:54 Receipt Acknowledged By: 11/25/2023 11:00 /natalie/ PRINCESS RAMON D.O. PHYSICIAN === --- Original Document --- 11/25/23 CCC: SCHEDULING ADMINISTRATION: Patient Demographics Patient Name: BRAD CUENCA Patient Primary Phone: [phone] Patient Primary Address: [address] [place] [id number] Patient : 1950 Patient Age: 73 Caller/Recipient Relation to Patient: Self Administrative Administrative Note Reason: Medication Renewal [place] Medications Refill/Renewal Request: ALBUTEROL 90MCG (CFC-F) 200D ORAL INHL Administrative Note Comments: Pt called in and is wondering if he can get a bigger monthly supply of his albuterol. He would like to have one on him and an extra one in the car. He can be reached at the number on file. IMPORTANT: This note was created by [facility] Clinical Contact Center staff. Please do not alert the staff member by adding them as a signer for future communications. Alerts are not monitored by this user. /natalie/ [facility] AMSA Signed: 11/25/2023 08:54 Receipt Acknowledged By: * AWAITING SIGNATURE * NEHALCHARTRU 11/25/2023 09:53 /natalie/ MARLEE CLINTON RN REGISTERED NURSE MARLEE CLINTON [place] [facility] Nov 25, 2023 08:54 AM ADMINISTRATIVE NOT E: LOCAL TITLE: CCC: SCHEDULING ADMINISTRATION STANDARD TITLE: ADMINISTRATIVE NOTE DATE OF NOTE: NOV 25, 2023@08:54:44 ENTRY DATE: NOV 25, 2023@08:54:45 AUTHOR: DEEP WELSH EXP COSIGNER: URGENCY: STATUS: COMPLETED CCC: SCHEDULING ADMINISTRATION Has ADDENDA Patient Demographics Patient Name: BRAD CUENCA Patient Primary Phone: [phone] Patient Primary Address: [address] [place] [id number] Patient : 1950 Patient Age: 73 Caller/Recipient Relation to Patient: Self Administrative Administrative Note Reason: Medication Renewal [place] Medications Refill/Renewal Request: ALBUTEROL 90MCG (CFC-F) 200D ORAL INHL Administrative Note Comments: Pt called in and is wondering if he can get a bigger monthly supply of his albuterol. He would like to have one on him and an extra one in the car. He can be reached at the number on file. IMPORTANT: This note was created by [facility] Clinical Contact Center staff. Please do not alert the staff member by adding them as a signer for future communications. Alerts are not monitored by this user. /natalie/ [facility] Signed: 11/25/2023 08:54 Receipt Acknowledged By: 11/25/2023 12:50 /es/ TRU CALVERT LPN License Practical Nurse 11/25/2023 09:53 /es/ MARLEE CLINTON RN REGISTERED NURSE 11/25/2023 ADDENDUM STATUS: COMPLETED ALERT TO PCP for consideration of requested medication renewal and inreased # of inhalers per note /natalie/ MARLEE CLINTON, SHERYL REGISTERED NURSE Signed: 11/25/2023 09:54 Receipt Acknowledged By: 11/25/2023 11:00 /natalie/ PRINCESS RAMON D.O. PHYSICIAN [place] CN[facility]L [facility]
--- OUTSIDE RECORDS SUMMARY | 2024-02-13 13:04 | XMS_ITS | Encounter Summary ---
Author Name [facility] [place] Organization [place] Address [address] [place] [address] Care Team Providers Care Sheetfed Press Operator Name Role Phone PRINCESS RAMON Primary [...] PART A Jul 15, 2013 PART A [id number] BRAD CUENCA JR PATIENT MEDICARE (WNR) MEDICARE (M) PART B Jul 15, 2013 PART B [id number] BRAD CUENCA JR PATIENT Selected Encounter This section includes the information on record at [place] for the Encounter. Date/Time Encounter Type Encounter Description Reason Pro vider Source Nov 11, 2023 09:59 AM Outpatient Encounter PRIMARY CARE/MEDICINE IHE Encounter Template Text not used by [place] Plan of Treatment: Future Appointments (+ 6 [...] 20 appointments. The data comes from all [facility]. Appointment Date/Time Appointment Type Appointme nt Facility Name Nov 25, 2023 09:30 [facility] Nov 29, 2023 09:00 AM [facility] - MEDICINE [facility] N[facility] TRN [facility] Feb 21, 2024 09:45 AM AMBULATORY - MEDICINE [facility] N[facility] Feb 27, 2024 10:00 AM [facility] Mar 20, 2024 09:00 AM AMBULATORY MEDICINE [facility] N[facility] TRN [facility] May 10, 2024 09:30 AM [facility] May 10, 2024 10:30 AM AMBULATORY - MEDICINE [facility] Active, Pending, and Scheduled Orders This section includes a listing of several types of active, pending, and scheduled orders, including clinic medications orders, diagnostic test orders, procedure orders and consult orders; where the start date of the order is 45 days before the date of the Encounter or 45 days after the date of theEncounter. The data comes from all [facility]. Test Date/Time Test Type Test Details Facility Name Nov 11, 2023 12:03 PM Consult Order COMMUNITY CARE-UROLOGY Cons Family Intervention Specialist's Choice [facility] Lab Results: +/- 30 days of [...] Range Comment Nov 03, 2023 08:12 AM [facility] FERRITIN Specimen Type: SERUM No comment entered. Ordering Provider: PRINCESS RAMON Report Released Date/Time: Nov 01, 2023 12:47 PM Reporting Lab: [address] [address] Performing Lab: [facility] [address] [facility] [address] FERRITIN 144 ng/mL 20-300 Nov 03, 2023 08:12 AM [facility] IRON & TIBC PANEL Specimen Type: SERUM No comment entered. Ordering Provider: PRINCESS RAMON Report Released Date/Time: Nov 01, 2023 12:47 PM Reporting Lab: [facility] [address] [facility] [address] Performing Lab: [facility] [address] TIBC 268 ug/dL 204-475 IRON 195 ug/dL H 40-160 Transferrin Saturation 72.8 H 20.0-50.0 Transferrin (TRF) 203 mg/dL 200-360 Nov 03, 2023 08:12 AM [facility] LIVER FUNCTION Specimen Type: SERUM No comment entered. Ordering Provider: PRINCESS RAMON Report Released Date/Time: Nov 01, 2023 12:47 PM Reporting Lab: [address] [address] Performing Lab: [address] [address] PROTEIN,TOTAL 6.4 g/dL 6.0-8.3 ALBUMIN 4.1 g/dL 3.5-5.0 ALKALINE PHOSPHATASE 75 U/L 40-150 AST 22 U/L 5-34 ALT 35 U/L BILIRUBIN, TOTAL 0.6 mg/dL 0.2-1.2 Nov 03, 2023 08:12 AM [facility] CBC Specimen Type: BLOOD No comment entered. Ordering Provider: PRINCESS RAMON Report Released Date/Time: Nov 01, 2023 12:47 PM Reporting Lab: [facility] [address] [facility] [address] Performing Lab: [address] [address] WBC 7.31 10*3/uL 4.50-11.00 RBC 5.14 10*6/uL [...] Source Nov 11, 2023 12:06 PM 138/70 [place] [facility] [place] [facility] [facility] Nov 11, 2023 09:02 AM 98.7 107 154/90 16 90 0 265 37 [place] [facility] [facility] Social History: Smoking Status (Most current) and Tobacco Use (All prior to encounter date) This section includes the most current, and the historical, smoking and tobacco- related health factors from the [place] facility where the Encounter took place. Current Smoking Status This section includes the most current smoking, or tobacco-related health factor, from the [place] facility where the Encounter took place. Date/Time Current Smoking Status Comment [facility] Jan 12, 2023 09:00 AM VA-TOBACCO USER EVERY DAY [place] [facility] [place] [facility] Tobacco Use History This section includes a history of the smoking, or tobacco-related health factors, that were collected on or before the date of the Encounter. The data comes from the [place] facility where the Encounter took place. Date/Time Smoking Status/Tobac co Use Comment Facility Jan 12, 2023 09:00 AM VA-TOBACCO USE 30 YEARS OR MORE [facility] [place] [facility] Jan 12, 2023 09:00 AM VA-TOBACCO USE ADVICE [place] [facility] [facility] Jan 12, 2023 09:00 AM VA-TOBACCO USE TROUT FARMER NO [place] [facility] [place] [facility] Jan 12, 2023 09:00 AM VA-TOBACCO USE MED NO [place] [facility] [place] [facility] Jan 12, 2023 09:00 AM VA-TOBACCO USER EVERY DAY [place] [facility] [place] [facility] Oct 23, 2021 08:00 AM VA-TOBACCO DOESNT USE WI 30 MIN WAKEUP [facility] [place] [facility] Oct 23, 2021 08:00 AM VA-TOBACCO USE 30 YEARS OR MORE [facility] [place] [facility] Oct 23, 2021 08:00 AM VA-TOBACCO USE ADVICE [facility] [place] [facility] Oct 23, 2021 08:00 AM VA-TOBACCO USE TROUT FARMER NO [facility] [place] [facility] Oct 23, 2021 08:00 AM VA-TOBACCO USE MED NO [place] [facility] [place] [facility] Oct 23, 2021 08:00 AM VA-TOBACCO USER EVERY DAY [place] [facility] [place] [facility] Oct 29, 2020 10:00 AM VA-TOBACCO DOESNT USE WI 30 MIN WAKEUP [place] [facility] [facility] Oct 29, 2020 10:00 AM VA-TOBACCO USE 30 YEARS OR MORE [facility] [place] [facility] Oct 29, 2020 10:00 AM VA-TOBACCO USE ADVICE [facility] [place] [facility] Oct 29, 2020 10:00 AM VA-TOBACCO USE TROUT FARMER YES [place] [facility] [place] [facility] Oct 29, 2020 10:00 AM VA-TOBACCO USE MED NOTIFY PROVIDER [place] [facility] [facility] Oct 29, 2020 10:00 AM VA-TOBACCO USER EVERY DAY [place] [facility] [facility] Oct 10, 2019 11:00 AM VA-TOBACCO FORMER USER [place] [facility] [place] [facility] Oct 10, 2019 11:00 AM VA-TOBACCO QUIT < 1 YEAR [facility] [place] [facility] Oct 26, 2018 07:55 AM VA-TOBACCO USE > 15 LESS THAN 30 YEARS [place] [facility] [place] [facility] Oct 26, 2018 07:55 AM VA-TOBACCO USE ADVICE [facility] [place] [facility] Oct 26, 2018 07:55 AM VA-TOBACCO USE TROUT FARMER NO [facility] [place] [facility] Oct 26, 2018 07:55 AM VA-TOBACCO USE MED NO [facility] [place] [facility] Oct 26, 2018 07:55 AM VA-TOBACCO USE WI 30 MIN OF WAKEUP [facility] [place] [facility] Oct 26, 2018 07:55 AM VA-TOBACCO USER EVERY DAY [facility] [place] [facility] Aug 04, 2017 08:53 AM CURRENT SMOKER [facility] [place] [facility] Aug 04, 2017 08:53 AM V1-PT DECLINES REF TO TOBACCO CESS PRGM [place] [facility] [place] [facility] Aug 04, 2017 08:53 AM V1-PT DECLINES TOBACCO CESSATION MEDS [facility] [place] [facility] Aug 04, 2017 08:53 AM V1-PT THINKING ABOUT QUIT TOBACCO USE [facility] [place] [facility] Jan 31, 2017 09:51 AM QUIT TOBACCO USE IN PAST YEAR 31 days [place] [facility] [place] [facility] Jan 26, 2016 08:36 AM CURRENT SMOKER [facility] [place] [facility] Jan 26, 2016 08:36 AM V1-PT DECLINES REF TO TOBACCO CESS [facility] [place] [facility] Jan 26, 2016 08:36 AM V1-PT DECLINES TOBACCO CESSATION MEDS [facility] [place] [facility] Jan 26, 2016 08:36 AM V1-PT THINKING ABOUT QUIT TOBACCO USE [place] [facility] [place] [facility] Feb 20, 2015 10:25 AM QUIT TOBACCO USE IN PAST YEAR [facility] [place] [facility] June 17, 2014 07:37 AM CURRENT SMOKER Reports being an off and on smoker -cigarettes [facility] [place] [facility] June 17, 2014 07:37 AM V1-PT DECLINES REF TO TOBACCO CESS PRGM [facility] [place] [facility] June 17, 2014 07:37 AM V1-PT DECLINES TOBACCO CESSATION MEDS [facility] [place] [facility] June 17, 2014 07:37 AM V1-PT THINKING ABOUT QUIT TOBACCO USE [place] [facility] [place] [facility] Sep 14, 2011 09:51 AM CURRENT SMOKER less than a pack a day [place] [facility] [place] [facility] Sep 14, 2011 09:51 AM V1-PT DECLINES REF TO TOBACCO CESS PRGM [facility] [place] [facility] Sep 14, 2011 09:51 AM V1-PT DECLINES TOBACCO CESSATION MEDS [facility] Sep 14, 2011 09:51 AM V1-PT THINKING ABOUT QUIT TOBACCO USE [facility] Mar 09, 2010 09:32 AM CURRENT SMOKER 1 ppd [facility] Mar 09, 2010 09:32 AM V1-PT DECLINES TOBACCO CESSATION MEDS [facility] Mar 09, 2010 09:32 AM V1-PT REF TO NON-VA TOBACCO CESS PRGM [facility] Mar 09, 2010 09:32 AM V1-PT THINKING ABOUT QUIT TOBACCO USE [facility] Sep 29, 2009 02:07 PM V1-PT DECLINES REF TO TOBACCO CESS PRGM [facility] Sep 29, 2009 02:07 PM V1-PT DECLINES TOBACCO CESSATION MEDS [facility] Sep 29, 2009 02:07 PM V1-PT NOT INTERESTED IN QUIT TOBACCO USE [facility] Jan 29, 2009 11:00 AM CURRENT SMOKER 1 ppd [facility] Jan 29, 2009 11:00 AM V1-PT DECLINES TOBACCO CESSATION MEDS [facility] Jan 29, 2009 11:00 AM V1-PT READY TO QUIT TOBACCO USE [facility] Mar 17, 2005 08:36 AM CURRENT SMOKER [facility] Advance Directives: All historical and current Section Date Range: From patient's date of to the date document was created. This section includes ALL of a patient's completed or amended [place] Advance and Rescinded Directives. The entries below indicate that a directive exists for the patient, but an actual copy is not included with this document. The data comes from all [place] facilities. Date Advance Directives Provider Source Nov 11, 2023 ADVANCE DIRECTIVE JACOB DEL TORO [facility] Encounter Notes: All associated encounter notes This section contains the clinical notes associated to the Encounter. Date/Time Encounter Note(s) Provider Source Nov 11, 2023 09:59 AM ADVANCE DIRECTIVE: LOCAL TITLE: ADVANCE DIRECTIVE STANDARD TITLE: ADVANCE DIRECTIVE DATE OF NOTE: NOV 11, 2023@09:59 ENTRY DATE: NOV 11, 2023@09:59:54 AUTHOR: JACOB DEL TORO EXP COSIGNER: URGENCY: STATUS: COMPLETED * [ ]Advance Directive executed with . [X]Patient brought in his/her own Advance Directive. Scanned Advance Directive or Advance Directive/AOD Flowsheet is located in [employer]. /es/ JACOB DEL TORO AMSA Signed: 11/11/2023 10:00 JACOB DEL TORO [facility]
--- OUTSIDE RECORDS SUMMARY | 2024-02-13 13:04 | XMS_ITS | Encounter Summary ---
Author Name [place] Address [address] [place] [address] Care Team Providers Care Bluing Oven Tender Name Role Phone PRINCESS RAMON Primary Care [...] PART A Jul 15, 2013 PART A [id number] BRAD CUENCA JR PATIENT MEDICARE (WNR) MEDICARE (M) PART B Jul 15, 2013 PART B [id number] BRAD CUENCA JR PATIENT Selected Encounter This section includes the information on record at [place] for the Encounter. Date/Time Encounter Type Encounter Description Reason Pro vider Source Nov 07, 2023 12:00 AM Outpatient Encounter EVENT (HISTORICAL) IHE Encounter Template Text not used by [place] Plan of Treatment: Future Appointments (+ 6 [...] 11, 2023 09:00 AM AMBULATORY - MEDIC[facility] [place] [facility] Nov 25, 2023 09:[address] [facility] Nov 29, 2023 09:00 AM AMBULATORY - MEDICINE [facility] [place] [facility] Feb 21, 2024 09:45 AM AMBULATORY - MEDICINE [facility] [place] [facility] Feb 27, 2024 10:[address] [facility] Mar 20, 2024 09:[address] [facility] Active, Pending, and Scheduled Orders This [...] 12:03 PM Consult Order COMMUNITY CARE-UROLOGY Cons Theoretical Physics Teacher's Choice [facility] Lab Results: +/- 30 days of the encounter This section includes the Chemistry and Hematology Lab Results on record with [place] for the patient. Radiology Reports and Pathology Reports are provided separately, in subsequent sections. Lab Results This section contains the Chemistry/Hematology Results that were resulted 30 days before or 30 daysafter the date of the Encounter. Date/Time Source Result Type Result - Unit Interpretation Reference Range Comment Nov 03, 2023 08:12 AM [facility] FERRITIN Specimen Type: SERUM No comment entered. Ordering Provider: PRINCESS RAMON Report Released Date/Time: Nov 01, 2023 12:47 PM Reporting Lab: [address] [address] Performing Lab: [address] [address] FERRITIN 144 ng/mL 20-300 Nov 03, 2023 08:12 AM [facility] IRON & TIBC PANEL Specimen Type: SERUM No comment entered. Ordering Provider: PRINCESS RAMON Report Released Date/Time: Nov 01, 2023 12:47 PM Reporting Lab: [address] [address] Performing Lab: [address] [address] TIBC 268 ug/dL 204-475 IRON 195 ug/dL H 40-160 Transferrin Saturation 72.8 H 20.0-50.0 Transferrin (TRF) 203 mg/dL 200-360 Nov 03, 2023 08:12 AM [facility] LIVER FUNCTION Specimen Type: SERUM No comment entered. Ordering Provider: PRINCESS RAMON Report Released Date/Time: Nov 01, 2023 12:47 PM Reporting Lab: [address] [address] Performing Lab: [address] [address] PROTEIN,TOTAL 6.4 g/dL 6.0-8.3 ALBUMIN 4.1 g/dL 3.5-5.0 ALKALINE PHOSPHATASE 75 U/L 40-150 AST 22 U/L 5-34 ALT 35 U/L BILIRUBIN, TOTAL 0.6 mg/dL 0.2-1.2 Nov 03, 2023 08:12 AM [facility] CBC Specimen Type: BLOOD No comment entered. Ordering Provider: PRINCESS RAMON Report Released Date/Time: Nov 01, 2023 12:47 PM Reporting Lab: [address] [address] Performing Lab: [address] [address] WBC 7.31 10*3/uL 4.50-11.00 RBC 5.14 10*6/uL [...] 2023 09:00 AM VA-TOBACCO USER EVERY DAY [place] [facility] Tobacco Use History This section [...] 12, 2023 09:00 AM VA-TOBACCO USE ADVICE [place] [facility] Jan 12, 2023 09:00 AM VA-TOBACCO USE LAST SCOURER NO [place] [facility] [place] [facility] Jan 12, 2023 09:00 AM VA-TOBACCO USE MED NO [place] [facility] [place] [facility] Jan 12, 2023 09:00 AM VA-TOBACCO USER EVERY DAY [place] [facility] [place] [facility] Oct 23, 2021 08:00 AM VA-TOBACCO DOESNT USE WI 30 MIN WAKEUP [place] [facility] [place] [facility] Oct 23, 2021 08:00 AM VA-TOBACCO USE 30 YEARS OR MORE [place] [facility] [place] [facility] Oct 23, 2021 08:00 AM VA-TOBACCO USE ADVICE [place] [facility] [place] [facility] Oct 23, 2021 08:00 AM VA-TOBACCO USE LAST SCOURER NO [place] [facility] [place] [facility] Oct 23, 2021 08:00 AM VA-TOBACCO USE MED NO [place] [facility] [place] [facility] Oct 23, 2021 08:00 AM VA-TOBACCO USER EVERY DAY [place] [facility] [place] [facility] Oct 29, 2020 10:00 AM VA-TOBACCO DOESNT USE WI 30 MIN WAKEUP [place] [facility] [place] [facility] Oct 29, 2020 10:00 AM VA-TOBACCO USE 30 YEARS OR MORE [place] [facility] [place] [facility] Oct 29, 2020 10:00 AM VA-TOBACCO USE ADVICE [place] [facility] [place] [facility] Oct 29, 2020 10:00 AM VA-TOBACCO USE LAST SCOURER YES [place] [facility] [place] [facility] Oct 29, 2020 10:00 AM VA-TOBACCO USE MED NOTIFY PROVIDER [place] [facility] [place] [facility] Oct 29, 2020 10:00 AM VA-TOBACCO USER EVERY DAY [place] [facility] [place] [facility] Oct 10, 2019 11:00 AM VA-TOBACCO FORMER USER [place] [facility] [place] [facility] Oct 10, 2019 11:00 AM VA-TOBACCO QUIT < 1 YEAR [place] [facility] [place] [facility] Oct 26, 2018 07:55 AM VA-TOBACCO USE > 15 LESS THAN 30 YEARS [place] [facility] [place] [facility] Oct 26, 2018 07:55 AM VA-TOBACCO USE ADVICE [place] [facility] [place] [facility] Oct 26, 2018 07:55 AM VA-TOBACCO USE LAST SCOURER NO [place] [facility] [place] [facility] Oct 26, 2018 07:55 AM VA-TOBACCO USE MED NO [place] [facility] [place] [facility] Oct 26, 2018 07:55 AM VA-TOBACCO USE [place] 30 MIN OF WAKEUP [place] [facility] [place] [facility] Oct 26, 2018 07:55 AM VA-TOBACCO USER EVERY DAY [place] [facility] [place] [facility] Aug 04, 2017 08:53 AM CURRENT SMOKER [place] [facility] [place] [facility] Aug 04, 2017 08:53 AM V1-PT DECLINES REF TO TOBACCO CESS PRGM [place] [facility] [place] [facility] Aug 04, 2017 08:53 AM V1-PT DECLINES TOBACCO CESSATION MEDS [facility] [place] [facility] Aug 04, 2017 08:53 AM V1-PT THINKING ABOUT QUIT TOBACCO USE [place] [facility] [place] [facility] Jan 31, 2017 09:51 AM QUIT TOBACCO USE IN PAST YEAR 31 days [place] [facility] [place] [facility] Jan 26, 2016 08:36 AM CURRENT SMOKER [place] [facility] [place] [facility] Jan 26, 2016 08:36 AM V1-PT DECLINES REF TO TOBACCO CESS PRGM [place] [facility] [place] [facility] Jan 26, 2016 08:36 AM V1-PT DECLINES TOBACCO CESSATION MEDS [facility] [place] [facility] Jan 26, 2016 08:36 AM V1-PT THINKING ABOUT QUIT TOBACCO USE [place] [facility] [place] [facility] Feb 20, 2015 10:25 AM QUIT TOBACCO USE IN PAST YEAR [place] [facility] [place] [facility] June 17, 2014 07:37 AM CURRENT SMOKER Reports being an off and on smoker -cigarettes [facility] [place] [place] [facility] June 17, 2014 07:37 AM V1-PT DECLINES REF TO TOBACCO CESS PRGM [facility] [place] [facility] June 17, 2014 07:37 AM V1-PT DECLINES TOBACCO CESSATION MEDS [facility] [place] [facility] June 17, 2014 07:37 AM V1-PT THINKING ABOUT QUIT TOBACCO USE [facility] [place] [facility] Sep 14, 2011 09:51 AM CURRENT SMOKER less than a pack a day [place] [facility] [place] [facility] Sep 14, 2011 09:51 AM V1-PT DECLINES REF TO TOBACCO CESS PRGM [place] [facility] [place] [facility] Sep 14, 2011 09:51 AM V1-PT DECLINES TOBACCO CESSATION MEDS [facility] [place] [facility] Sep 14, 2011 09:51 AM V1-PT THINKING ABOUT QUIT TOBACCO USE [place] [facility] [place] [facility] Mar 09, 2010 09:32 AM CURRENT SMOKER 1 ppd [place] [facility] [facility] Mar 09, 2010 09:32 AM V1-PT DECLINES TOBACCO CESSATION MEDS [facility] [place] [facility] Mar 09, 2010 09:32 AM V1-PT REF TO NON-VA TOBACCO CESS PRGM [facility] Mar 09, 2010 09:32 AM V1-PT THINKING ABOUT QUIT [facility]AC[facility] Sep 29, 2009 02:07 PM V1-PT DECLINES REF TO TOBACCO CESS [facility] Sep 29, 2009 02:07 PM V1-PT DECLINES TOBACCO CESSATION MEDS [facility] Sep 29, 2009 02:07 PM V1-PT NOT INTERESTED IN QUIT TOBACCO USE [facility] Jan 29, 2009 11:00 AM CURRENT SMOKER 1 ppd [facility] Jan 29, 2009 11:00 AM V1-PT DECLINES TOBACCO CESSATION MEDS [facility] Jan 29, 2009 11:00 AM V1-PT READY TO QUIT TOBACCO USE [facility] Mar 17, 2005 08:36 AM CURRENT SMOKER [facility] Advance Directives: All historical and current [...] 11, 2023 ADVANCE DIRECTIVE JACOB DEL TORO [facility] Encounter Notes: All associated encounter notes This section contains the clinical notes associated to the Encounter. Date/Time Encounter Note(s) Provider Source Nov 07, 2023 12:00 AM NONVA DIAGNOSTIC S TUDY REPORT: LOCAL TITLE: NON-VA DIAGNOSTICS STANDARD TITLE: NONVA DIAGNOSTIC STUDY REPORT DATE OF NOTE: NOV 07, 2023 ENTRY DATE: NOV 23, 2023@15:18:20 AUTHOR: KRISTYN OCHOA EXP COSIGNER: URGENCY: STATUS: COMPLETED VistA Imaging - Scanned Document SCANNED DOCUMENT SIGNATURE NOT REQUIRED Electronically Filed: 11/23/2023 by: KRISTYN OCHOA [facility] Specialist KRISTYN OCHOA [facility]
--- OUTSIDE RECORDS SUMMARY | 2024-02-13 13:04 | XMS_ITS ---
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 Date/Time Encounter Type Encounter Description Reason Pro vider Source Feb 13, 2024 10:42 AM Outpatient Encounter ADMIN PAT ACTIVTIES (MASNONCT) IHE Encounter Template Text not used by [place] Plan of Treatment: Future Appointments (+ 6 [...] 20 appointments. The data comes from all [place] treatment [facility]. Appointment Date/Time Appointment Type Appointme nt Facility Name Feb 21, 2024 09:45 AM [facility]ULATORY [facility] Feb 27, 2024 10:00 AM AMBULATORY - MEDICINE [facility] Mar 20, 2024 09:00 AM AMBULATORY - MEDICINE [facility] May 10, 2024 09:30 AM [facility] May 10, 2024 10:30 AM AMBULATORY - MEDICINE [facility] Active, Pending, and Scheduled Orders This section includes a listing of several types of active, pending, and scheduled orders, including clinic medications orders, diagnostic test orders, procedure orders and consult orders; where the start date of the order is 45 days before the date of the Encounter or 45 days after the date of theEncounter. The data comes from all [facility]. Test Date/Time Test Type Test Details Facility Name Jan 05, 2024 08:22 AM Consult Order [facility] Cons Program Clerk's Choice [facility] Social History: Smoking Status (Most current) and Tobacco Use (All prior to encounter date) This section includes the most current, and the historical, smoking and tobacco- related health factors from the [place] facility where the Encounter took place. Current Smoking Status This section includes the most current smoking, or tobacco-related health factor, from the [place] facility where the Encounter took place. Date/Time Current Smoking Status Comment Shanell it Jan 12, 2023 09:00 AM VA-TOBACCO USER EVERY DAY [facility] Tobacco Use History This section includes a history of the smoking, or tobacco-related health factors, that were collected on or before the date of the Encounter. The data comes from the [place] facility where the Encounter took place. Date/Time Smoking Status/Tobac co Use Comment Facility Jan 12, 2023 09:00 AM VA-TOBACCO USE 30 YEARS OR MORE [facility] Jan 12, 2023 09:00 AM VA-TOBACCO USE ADVICE [facility] [place] [facility] Jan 12, 2023 09:00 AM VA-TOBACCO USE LEGAL AID NO [facility] [place] [facility] Jan 12, 2023 09:00 AM VA-TOBACCO USE MED NO [facility] [place] [facility] Jan 12, 2023 09:00 AM VA-TOBACCO USER EVERY DAY [facility] [place] [facility] Oct 23, 2021 08:00 AM VA-TOBACCO DOESNT USE WI 30 MIN WAKEUP [place] [facility] [place] [facility] Oct 23, 2021 08:00 AM VA-TOBACCO USE 30 YEARS OR MORE [facility] [place] [facility] Oct 23, 2021 08:00 AM VA-TOBACCO USE ADVICE [facility] [place] [facility] Oct 23, 2021 08:00 AM VA-TOBACCO USE LEGAL AID NO [facility] [place] [facility] Oct 23, 2021 08:00 AM VA-TOBACCO USE MED NO [facility] [place] [facility] Oct 23, 2021 08:00 AM VA-TOBACCO USER EVERY DAY [place] [facility] [place] [facility] Oct 29, 2020 10:00 AM VA-TOBACCO DOESNT USE WI 30 MIN WAKEUP [place] [facility] [place] [facility] Oct 29, 2020 10:00 AM VA-TOBACCO USE 30 YEARS OR MORE [place] [facility] [place] [facility] Oct 29, 2020 10:00 AM VA-TOBACCO USE ADVICE [facility] [place] [facility] Oct 29, 2020 10:00 AM VA-TOBACCO USE LEGAL AID YES [facility] [place] [facility] Oct 29, 2020 10:00 AM VA-TOBACCO USE MED NOTIFY PROVIDER [place] [facility] [place] [facility] Oct 29, 2020 10:00 AM VA-TOBACCO USER EVERY DAY [place] [facility] [place] [facility] Oct 10, 2019 11:00 AM VA-TOBACCO FORMER USER [facility] [place] [facility] Oct 10, 2019 11:00 AM VA-TOBACCO QUIT < 1 YEAR [facility] [place] [facility] Oct 26, 2018 07:55 AM VA-TOBACCO USE > 15 LESS THAN 30 YEARS [place] [facility] [place] [facility] Oct 26, 2018 07:55 AM VA-TOBACCO USE ADVICE [facility] [place] [facility] Oct 26, 2018 07:55 AM VA-TOBACCO USE LEGAL AID NO [place] [facility] [facility] Oct 26, 2018 07:55 AM VA-TOBACCO USE MED NO [facility] [place] [facility] Oct 26, 2018 07:55 AM VA-TOBACCO USE WI 30 MIN OF WAKEUP [place] [facility] [place] [facility] Oct 26, 2018 07:55 AM VA-TOBACCO USER EVERY DAY [place] [facility] [place] [facility] Aug 04, 2017 08:53 AM CURRENT SMOKER [facility] [place] [facility] Aug 04, 2017 08:53 AM V1-PT DECLINES REF TO TOBACCO CESS PRGM [place] [facility] [place] [facility] Aug 04, 2017 08:53 AM V1-PT DECLINES TOBACCO CESSATION MEDS [facility] [place] [place] [facility] Aug 04, 2017 08:53 AM V1-PT THINKING ABOUT QUIT TOBACCO USE [facility] [place] [facility] Jan 31, 2017 09:51 AM QUIT TOBACCO USE IN PAST YEAR 31 days [facility] [place] [facility] Jan 26, 2016 08:36 AM CURRENT SMOKER [place] [facility] [place] [facility] Jan 26, 2016 08:36 AM V1-PT DECLINES REF TO TOBACCO CESS PRGM [place] [facility] [place] [facility] Jan 26, 2016 08:36 AM V1-PT DECLINES TOBACCO CESSATION MEDS [facility] [place] [facility] Jan 26, 2016 08:36 AM V1-PT THINKING ABOUT QUIT TOBACCO USE [facility] [place] [facility] Feb 20, 2015 10:25 AM QUIT TOBACCO USE IN PAST YEAR [place] [facility] [place] [facility] June 17, 2014 07:37 AM CURRENT SMOKER Reports being an off and on smoker -cigarettes [facility] [place] [facility] June 17, 2014 07:37 AM V1-PT DECLINES REF TO TOBACCO CESS PRGM [place] [facility] [place] [facility] June 17, 2014 07:37 AM V1-PT DECLINES TOBACCO CESSATION MEDS [facility] [place] [place] [facility] June 17, 2014 07:37 AM V1-PT THINKING ABOUT QUIT TOBACCO USE [facility] [place] [facility] Sep 14, 2011 09:51 AM CURRENT SMOKER less than a pack a day [facility] [place] [facility] Sep 14, 2011 09:51 AM V1-PT DECLINES REF TO TOBACCO CESS PRGM [facility] [place] [facility] Sep 14, 2011 09:51 AM V1-PT DECLINES TOBACCO CESSATION MEDS [facility] [place] [facility] Sep 14, 2011 09:51 AM V1-PT THINKING ABOUT QUIT TOBACCO USE [facility] [place] [facility] Mar 09, 2010 09:32 AM CURRENT SMOKER 1 ppd [facility] [place] [facility] Mar 09, 2010 09:32 AM V1-PT DECLINES TOBACCO CESSATION MEDS [facility] [place] [facility] Mar 09, 2010 09:32 AM V1-PT REF TO NON-VA TOBACCO CESS PRGM [facility] [place] [place] [facility] Mar 09, 2010 09:32 AM V1-PT THINKING ABOUT QUIT TOBACCO USE [facility] [place] [facility] Sep 29, 2009 02:07 PM V1-PT DECLINES REF TO TOBACCO CESS PRGM [facility] [place] [place] [facility] Sep 29, 2009 02:07 PM V1-PT DECLINES TOBACCO CESSATION MEDS [facility] Sep 29, 2009 02:07 PM V1-PT NOT INTERESTED IN QUIT TOBACCO USE [facility] [place] [facility] Jan 29, 2009 11:00 AM CURRENT SMOKER 1 ppd [facility] [place] [facility] Jan 29, 2009 11:00 AM V1-PT DECLINES TOBACCO CESSATION MEDS [facility] [place] [place] [facility] Jan 29, 2009 11:00 AM V1-PT READY TO QUIT TOBACCO USE [facility] [place] [facility] Mar 17, 2005 08:36 AM CURRENT [facility]MOKER [facility] Advance Directives: All historical and current Section Date Range: From patient's date of to the date document was created. This section includes ALL of a patient's completed or amended [place] Advance and Rescinded Directives. The entries below indicate that a directive exists for the patient, but an actual copy is not included with this document. The data comes from all [place] facilities. Date Advance Directives Provider Source Nov 11, 2023 ADVANCE DIRECTIVE ALVERTOJACOB J [place] [facility] Encounter Notes: All associated encounter notes This section contains the clinical notes associated to the Encounter. Date/Time Encounter Note(s) Provider Source Feb 13, 2024 10:42 AM PHARMACY NOTE: LOCAL TITLE: V1 PHARMACY CUSTOMER CARE MEDICATION RENEWAL STANDARD TITLE: PHARMACY NOTE DATE OF NOTE: FEB 13, 2024@10:42 ENTRY DATE: FEB 13, 2024@10:42:43 AUTHOR: JATIN RUSHING EXP COSIGNER: URGENCY: STATUS: COMPLETED Date: Jan Division: [facility] referred by Pharmacy Call Center for medication renewal: Non-controlled/maintenanc e medication Medications requested: [id number] FINASTERIDE 5MG TAB Defer to primary care provider To be mailed . Please review and renew if appropriate. *This note was generated by [facility]/AL Pharmacy Customer Care. If you have any questions or need assistance, do not contact this author. Please refer all questions to your local, on-site pharmacy departments. /natalie/ JATIN RUSHING CPhT CUSTOMER SUPPORT ADVISOR, [place]/PHARMACY CUSTOMER CARE Signed: 02/13/2024 10:42 Receipt Acknowledged By: * AWAITING SIGNATURE * PRINCESS RAOMN 02/13/2024 10:45 /es/ ZENON RODAS, MSN, RN, CNL PRIMARY CARE TEAM NURSE JATIN RUSHING [place] [facility]
== END 2024-02-13 12:58 | disposition home or self-care (01) ==
LOC: HO.BBR 12:57
PROVIDERS: PCP Internal Medicine; Visit Provider Internal Medicine
DX: Z13.89 Encounter for screening for other disorder (principal)

== ENCOUNTER 2024-02-21 09:34 | Outpatient (AMB) | payer OTHER, SELFPAY ==
--- NOTE | 2024-02-21 09:37 | A.OFFVIS_ITS ---
Intake Visit Reasons: BPH/Eleaved PSA/Turp Consult Intake Note: Patient is present for BPH/ELEVATED PSA/TURP CONSULT Urology Medication:TAMSULOSIN,FINASTERIDE Antibiotic Allergy:NONE Blood Thinner:NONE TODAY'S PVR:0ML'S Assistant Pressman Required: No Allergies varenicline [From [facility]ix] Allergy (Mild, Verified 02/21/24 09:39) Unknown HPI Comments Details: Rene is a pleasant male. He is a patient of Dr. Roblero. He seen for the following urologic conditions - BPH On combination therapy Bladder ultrasound Plan office cysto PFSH Medical History (Updated 02/21/24 @ 10:14 by Roe Serrano MD) Frequent urination Nocturia Other obesity not elsewhere classified Other male erectile dysfunction Other hemochromatosis Impacted cerumen Depressive disorder, not elsewhere classified Centrilobular emphysema Elevated PSA Hemochromatosis Pulmonary nodules COPD (chronic obstructive pulmonary disease) Personal history of nicotine dependence BPH (benign prostatic hyperplasia) Erectile dysfunction Surgical History (Updated 02/14/24 @ 10:15 by CHADD Paige) History of tonsillectomy History of appendectomy History of colonoscopy Family History (Updated 02/09/24 @ 10:58 by CHADD Paige) Mother Sepsis Father GI cancer Social History (Updated 05/24/23 @ 09:15 by CHADD Lloyd) Patient Tobacco Use Status: Current someday Tobacco user Tobacco use type: Cigarette Years Smoked: smoked for 60 years 1PPD, quit a few days ago. started at 11 Office Procedures Post Void Residual Post Residual Void Post Void Residual (PVR): 0 [id number] Void Residual by ultrasound Results AMB Urinalysis, Automated UA Leukoctes 0 Naresh/uL Last Edit by ZAIN Nava on 02/21/24 09:49 UA Nitrite Negative Last Edit by ZAIN Nava on 02/21/24 09:49 UA Urobilinogen 0.2 mg/dL Last Edit by ZAIN Nava on 02/21/24 09:4 9 UA Protein 15 mg/dL Last Edit by ZAIN Nava on 02/21/24 09:49 UA pH 6.0 Last Edit by ZAIN Nava on 02/21/24 09:49 UA Blood 0 Ignacio/uL Last Edit by ZAIN Nava on 02/21/24 09:49 UA Specific [place] 1.020 Last Edit by ZAIN Nava on 02/21/24 09: 49 UA Ketone Negative Last Edit by ZAIN Nava on 02/21/24 09:49 UA Bilirubin 0 mg/dL Last Edit by ZAIN Nava on 02/21/24 09:49 UA Glucose 0 mg/dL Last Edit by ZAIN Nava on 02/21/24 09:49 Results Reviewed Results Reviewed: Laboratory Last Values Urine pH (Auto) 6.0 02/21/24 09:48 Specific [place] (Auto) 1.020 02/21/24 09:48 Urine Protein (Auto) 15 mg/dL 02/21/24 09:48 Glucose (UA)(Auto) 0 mg/dL 02/21/24 09:48 Urine Ketones (Auto) Negative 02/21/24 09:48 Urine Blood (Auto) 0 Ignacio/uL 02/21/24 09:48 Urine Nitrite (Auto) Negative 02/21/24 09:48 Urine Bilirubin (Auto) 0 mg/dL 02/21/24 09:48 Urine Urobilinogen (Auto) 0.2 mg/dL 02/21/24 09:48 Leukocyte Esterase (Auto) 0 Naresh/uL 02/21/24 09:48 Assessment & Plan Assessment & Plan (1) BPH (benign prostatic hyperplasia): Code(s): N40.0 - Benign prostatic hyperplasia without lower urinary tract symptoms Category: Medical Orders: Orders AMB Urinalysis Automated Today Z13.9 - Encounter for screening, unspecified US bladder Today N40.0 - Benign prostatic hyperplasia without lower urinary tract symptoms, R39.12 - Poor urinary stream Coding Diagnoses BPH (benign prostatic hyperplasia) N40.0 CPT Codes Post Residual Void - PVR CPT Code: 48557-[id number] Void Residual by ultrasound ([id number])
--- OUTSIDE RECORDS SUMMARY | 2024-02-21 09:50 | XMS_ITS | Continuity of Care Document ---
Author Name [facility] Organization [facility] Care Team Providers Care Ball Warper Tender Name Role Phone [facility] Unavailable Unavailable Problems Combined list of problems from Department of Defense and Veterans Affairs facilities. It does not include entries that were removed or entered in error. Problem Status Onset Date Problem Type Date of Resolution Comments Source Hemochromatosis (SNOMED [place] 847932127) Active 02/14/18 96 Condition Nov 11, 2023 Entered By: PRINCESS RAMON Comment: keep HCT <16, ferritin <200. phlebotomy at [facility] changed to every other month, 450cc [facility] Benign prostatic hyperplasia Active Condition [facility] Centriacinar emphysema Active Condition [facility] Depressive Disorder NEC (ICD-9-CM 311.) Active Condition [facility] Elevated Prostate Specific Antigen (PSA) (ICD-9-CM 790.93) Active Condition [facility] Erectile dysfunction (SNOMED CT 111916763) Active Condition [facility] Hemochromatosis Active Condition [facility] Impacted cerumen * (ICD-9-CM 380.4) Active Condition [facility] Impaired fasting glucose Active Condition [facility] Nicotine dependence (SNOMED CT 00436795) Active Condition [facility] [...] lung field Active Diagnosis [facility] Medications Combined list of outpatient medications [...] G RESPIR ATORY (INHAL ATION) ACTIVE 11/25/2024 [id number] 4 FURCOLO,T PATY 2023 3 [facility] ALBUTEROL 90MCG/ACTUA T (CFC-F) INHL,ORAL,8 .5GM DOSE COUNTER INHALE 2 PUFFS BY MOUTH FOUR TIMES DAILY NEEDED FOR BREATHIN G RESPIR ATORY (INHAL ATION) DISCONT INUED 08/16/2024 [id number] 4 FURCOLO,T PATY 2023 1 [facility] ALBUTEROL 90MCG/ACTUA T (CFC-F) INHL,ORAL,8 .5GM DOSE COUNTER INHALE 2 PUFFS BY MOUTH FOUR TIMES DAILY NEEDED FOR BREATHIN G RESPIR ATORY (INHAL ATION) DISCONT INUED 07/06/2023 [id number] 4 [facility] JAWED 2022 1 [facility] CARBOXYMETH YLCELLULOSE NA 0.5% SOLN,OPH INSTILL 1 DROP INTO EACH EYE FOUR TIMES DAILY NEEDED FOR DRY EYE OPHTHA LMIC ACTIVE 03/01/2024 [id number] Jas CAMARA ICHELE 2023 45 [facility] FINASTERIDE 5MG TAB TAKE ONE TABLET BY MOUTH ONCE DAILY FOR PROSTATE ORAL ACTIVE 02/13/2025 [id number] 4 FURCOLO,T PATY 2023 90 [facility] FINASTERIDE 5MG TAB TAKE ONE TABLET BY MOUTH ONCE DAILY FOR PROSTATE ORAL DISCONT INUED 01/13/2024 [id number] 4 [facility] JAWED 2022 90 [facility] FLUTICASONE 250MCG/SALM ETEROL 50MCG INHL,ORAL,D ISKUS,60 INHALE 1 PUFF BY MOUTH TWICE DAILY FOR BREATHIN G - RINSE MOUTH AFTER USE RESPIR ATORY (INHAL ATION) ACTIVE 08/16/2024 [id number] 4 FURCOLO,T PATY 2023 1 [facility] FLUTICASONE 250MCG/SALM ETEROL 50MCG INHL,ORAL,D ISKUS,60 INHALE 1 PUFF BY MOUTH TWICE DAILY FOR BREATHIN G - RINSE MOUTH AFTER USE RESPIR ATORY (INHAL ATION) DISCONT INUED 01/13/2024 [id number] 4 [facility] JAW[facility] 2022 1 [facility] LIDOCAINE 5% PATCH APPLY 1 PATCH TOPICALL Y ONCE DAILY FOR NERVE PAIN (LEAVE PATCH ON FOR 12 HOURS, THEN REMOVE PATCH) TOPICA L ACTIVE 11/11/2024 [id number] 4 FURCOLO,T PATY 2023 90 [facility] TAMSULOSIN HCL 0.4MG CAP TAKE ONE CAPSULE BY MOUTH AT BEDTIME ORAL ACTIVE 08/16/2024 [id number] 4 FURCOLO,T PATY 2023 90 [facility] TAMSULOSIN HCL 0.4MG CAP TAKE ONE CAPSULE BY MOUTH AT BEDTIME ORAL DISCONT INUED 01/13/2024 [id number] 4 [facility] J[facility] 2022 90 [facility] THEOPHYLLIN E 400MG 24HR TAB,SA TAKE ONE TABLET BY MOUTH ONCE DAILY ORAL DISCONT INUED BY PROVIDE R 04/06/2024 [id number] 4 [place] MIGUEL BARBARA 2023 30 [facility] TIOTROPIUM 2.5MCG/ACTU AT INHL,ORAL,6 0D,4GM INHALE 2 PUFFS BY MOUTH ONCE DAILY RESPIR ATORY (INHAL ATION) ACTIVE 08/16/2024 [id number] 4 FURCOLO,T PATY 2023 1 [facility] TIOTROPIUM 2.5MCG/ACTU AT INHL,ORAL,6 0D,4GM INHALE 2 PUFFS BY MOUTH ONCE DAILY RESPIR ATORY (INHAL ATION) DISCONT INUED 01/13/2024 [id number] 4 [facility] 2022 1 [facility] Allergies, Adverse Reactions, Alerts Combined list of allergies from Department of Defense and Veterans Affairs facilities. It does not include entries that were removed or entered in error. Substance Category Reaction Severity Reaction type Status Date Reported Comments Source CHANTIX Propensity to adverse reactions to drug (finding) Anxiety active 0 [facility] [place] [facility] Immunizations Combined list of available immunizations from the Department of Defense and Veterans Affairs facilities. Immunization Series Date Given Administered By Site Reaction Lot Number CVX Code Drug Shipping Support Status Comments Source INFLUENZA, HIGH-DOSE, QUADRIVALENT 2022 PELON ESPINOSA LEFT DELTO ID [id number] 197 complet ed [facility] INFLUENZA VACCINE, QUADRIVALENT, ADJUVANTED 2021 205 complet ed [facility] ZOSTER RECOMBINANT 2 2021 187 complet ed [facility] COVID-19 (MODERNA), MRNA, LNP-S, PF, 100 MCG OR 50 MCG DOSE 3 2020 207 complet ed MOD; [id number]; 2 [facility] [...] DOSE 2 2020 207 complet ed MOD; [id number]; 1 [facility] COVID-19 (MODERNA), MRNA, LNP-S, PF, 100 MCG/0.5 ML DOSE 1 2020 207 complet ed MOD; [id number]; 1 [facility] [...] Left Deltoid [facility] PNEUMOCOCCAL, UNSPECIFIED FORMULATION 2005 KEITH CESAR 109 complet ed [facility] Results Combined list of recent chemistry, hematology [...] Nov 01, 2023 12:47 PM Reporting Lab: [facility] [address] [facility] [address] Performing Lab: [facility] [address] [facility] [address] [facility] IRON & TIBC PANEL IRON BINDING CAPACITY [MASS/VOLUM E] IN SERUM OR PLASMA 268 ug/dL 204 - 475 11/02 Specimen Type: SERUM No comment entered. Ordering Provider: RADHA RAMON Report Released Date/Time: Nov 01, 2023 12:47 PM Reporting Lab: [facility] [address] [facility] [address] Performing Lab: [facility] [address] [facility] [address] [facility] IRON & TIBC PANEL IRON [MASS/VOLUM E] IN SERUM OR PLASMA 195 ug/dL 40 - 160 11/02 H Specimen Type: SERUM No comment entered. Ordering Provider: RADHA RAMON Report Released Date/Time: Nov 01, 2023 12:47 PM Reporting Lab: [facility] [address] [facility] [address] Performing Lab: [facility] [address] [facility] [address] [facility] IRON & TIBC PANEL IRON/IRON BINDING CAPACITY.TO KEVIN [MASS RATIO] IN SERUM OR PLASMA 72.8 20.0 - 50.0 11/02 H Specimen Type: SERUM No comment entered. Ordering Provider: RADHA RAMON Report Released Date/Time: Nov 01, 2023 12:47 PM Reporting Lab: [facility] [place] [facility] [address] [facility] [address] Performing Lab: [facility] [place] [facility] [address] [facility] [address] [facility] IRON & TIBC PANEL TRANSFERRIN [MASS/VOLUM E] IN SERUM OR PLASMA 203 mg/dL 200 - 360 11/02 Specimen Type: SERUM No comment entered. Ordering Provider: RADHA RAMON Report Released Date/Time: Nov 01, 2023 12:47 PM Reporting Lab: [facility] [place] [facility] [address] [facility] [address] Performing Lab: [facility] [place] [facility] [address] [facility] [address] [facility] LIVER FUNCTION PROTEIN [MASS/VOLUM E] IN SERUM OR PLASMA 6.4 g/dL 6.0 - 8.3 11/02 Specimen Type: SERUM No comment entered. Ordering Provider: RADHA RAMON Report Released Date/Time: Nov 01, 2023 12:47 PM Reporting Lab: [facility] [place] [facility] [address] [facility] [address] Performing Lab: [facility] [place] [facility] [address] [facility] [address] [place] [facility] [place] [facility] LIVER FUNCTION ALBUMIN [MASS/VOLUM E] IN SERUM OR PLASMA 4.1 g/dL 3.5 - 5.0 11/02 Specimen Type: SERUM No comment entered. Ordering Provider: RADHA RAMON Report Released Date/Time: Nov 01, 2023 12:47 PM Reporting Lab: [facility] [place] [facility] [address] [facility] [address] Performing Lab: [facility] [place] [facility] [address] [facility] [address] [facility] LIVER FUNCTION ALKALINE PHOSPHATASE [ENZYMATIC ACTIVITY/VO LUME] IN SERUM OR PLASMA 75 U/L 40 - 150 11/02 Specimen Type: SERUM No comment entered. Ordering Provider: RADHA RAMON Report Released Date/Time: Nov 01, 2023 12:47 PM Reporting Lab: [facility] [place] [facility] [address] [facility] [address] Performing Lab: [facility] [place] [facility] [address] [facility] [address] [facility] LIVER FUNCTION ASPARTATE AMINOTRANSF ERASE [ENZYMATIC ACTIVITY/VO LUME] IN SERUM OR PLASMA 22 U/L 5 - 34 11/02 Specimen Type: SERUM No comment entered. Ordering Provider: RADHA RAMON Report Released Date/Time: Nov 01, 2023 12:47 PM Reporting Lab: [facility] [place] [address] [address] Performing Lab: [facility] [place] [facility] [address] [facility] [address] [place] [facility] [facility] LIVER FUNCTION ALANINE AMINOTRANSF ERASE [ENZYMATIC ACTIVITY/VO LUME] IN SERUM OR PLASMA 35 U/L 11/02 Specimen Type: SERUM No comment entered. Ordering Provider: RADHA RAMON Report Released Date/Time: Nov 01, 2023 12:47 PM Reporting Lab: [facility] [place] [address] [address] Performing Lab: [facility] [place] [facility] [address] [facility] [address] [place] [facility] [facility] LIVER FUNCTION BILIRUBIN.T OTAL [MASS/VOLUM E] IN SERUM OR PLASMA 0.6 mg/dL 0.2 - 1.2 11/02 Specimen Type: SERUM No comment entered. Ordering Provider: RADHA RAMON Report Released Date/Time: Nov 01, 2023 12:47 PM Reporting Lab: [facility] [place] [address] [address] Performing Lab: [facility] [place] [address] [address] [facility] CBC LEUKOCYTES [#/VOLUME] IN BLOOD BY AUTOMATED COUNT 7.31 10*3/u L 4.50 - 11.00 11/02 Specimen Type: BLOOD No comment entered. Ordering Provider: RADHA RAMON Report Released Date/Time: Nov 01, 2023 12:47 PM Reporting Lab: [facility] [place] [facility] [address] [facility] [address] Performing Lab: [facility] [place] [facility] [address] [facility] [address] [place] [facility] [place] [facility] CBC ERYTHROCYTE S [#/VOLUME] IN BLOOD BY AUTOMATED COUNT 5.14 10*6/u L 4.23 - 5.66 11/02 Specimen Type: BLOOD No comment entered. Ordering Provider: RADHA RAMON Report Released Date/Time: Nov 01, 2023 12:47 PM Reporting Lab: [facility] [place] [address] [address] Performing Lab: [facility] [place] [address] [address] [facility] CBC HEMOGLOBIN [MASS/VOLUM E] IN BLOOD 16.5 g/dL 12.8 - 17 11/02 Specimen Type: BLOOD No comment entered. Ordering Provider: RADHA RAMON Report Released Date/Time: Nov 01, 2023 12:47 PM Reporting Lab: [facility] [place] [address] [address] Performing Lab: [facility] [place] [address] [address] [facility] [place] [facility] CBC HEMATOCRIT [VOLUME FRACTION] OF BLOOD BY AUTOMATED COUNT 49.0 39.2 - 50.4 11/02 Specimen Type: BLOOD No comment entered. Ordering Provider: RADHA RAMON Report Released Date/Time: Nov 01, 2023 12:47 PM Reporting Lab: [facility] [place] [address] [address] Performing Lab: [facility] [place] [address] [place] [address] [facility] [place] [facility] CBC MCV [ENTITIC VOLUME] BY AUTOMATED COUNT 95.3 fL 82 - 99 11/02 Specimen Type: BLOOD No comment entered. Ordering Provider: RADHA RAMON Report Released Date/Time: Nov 01, 2023 12:47 PM Reporting Lab: [facility] [place] [facility] [address] [facility] [address] Performing Lab: [facility] [place] [facility] [address] [facility] [address] [facility] [place] [facility] CBC MCHC [MASS/VOLUM E] BY AUTOMATED COUNT 33.7 g/dL 30.8 - 35.1 11/02 Specimen Type: BLOOD No comment entered. Ordering Provider: RADHA RAMON Report Released Date/Time: Nov 01, 2023 12:47 PM Reporting Lab: [facility] [place] [address] [address] Performing Lab: [facility] [place] [address] [address] [place] [facility] [place] [facility] CBC PLATELETS [#/VOLUME] IN BLOOD BY AUTOMATED COUNT 182 10*3/u L 140 - 360 11/02 Specimen Type: BLOOD No comment entered. Ordering Provider: RADHA RAMON Report Released Date/Time: Nov 01, 2023 12:47 PM Reporting Lab: [facility] [place] [address] [address] Performing Lab: [facility] [place] [address] [address] [facility] [place] [facility] CBC ERYTHROCYTE DISTRIBUTIO N WIDTH [RATIO] BY AUTOMATED COUNT 12.3 12.0 - 16.0 11/02 Specimen Type: BLOOD No comment entered. Ordering Provider: RADHA RAMON Report Released Date/Time: Nov 01, 2023 12:47 PM Reporting Lab: [facility] [place] [address] [address] Performing Lab[facility] [address] [facility] [address] [facility] [place] [facility] CBC MCH [ENTITIC MASS] BY AUTOMATED COUNT 32.1 pg 26.2 - 32.6 11/02 Specimen Type: BLOOD No comment entered. Ordering Provider: RADHA RAMON Report Released Date/Time: Nov 01, 2023 12:47 PM Reporting Lab: [facility] [place] [facility] [address] [facility] [address] Performing Lab: [facility] [place] [facility] [address] [facility] [address] [facility] [place] [facility] FERRITIN FERRITIN [MASS/VOLUM E] IN SERUM OR PLASMA 205 ng/mL 20 - 300 01/04 Specimen Type: SERUM No comment entered. Ordering Provider: MAGUE CRUZ Report Released Date/Time: July 05, 2022 10:31 AM Reporting Lab: [facility] [place] [facility] [address] [facility] [address] Performing Lab: [facility] [place] [facility] [address] [facility] [address] [facility] [place] [facility] BASIC METABOLIC PANEL (fasting) UREA NITROGEN [MASS/VOLUM E] IN SERUM OR PLASMA 14 mg/dL 7 - 25 01/04 Specimen Type: SERUM No comment entered. Ordering Provider: MAGUE CRUZ Report Released Date/Time: July 05, 2022 10:31 AM Reporting Lab: [facility] [place] [facility] [address] [facility] [address] Performing Lab: [facility] [place] [facility] [address] [facility] [address] [facility] [place] [facility] BASIC METABOLIC PANEL (fasting) GLUCOSE [MASS/VOLUM E] IN SERUM OR PLASMA 108 mg/dL 65 - 100 01/04 H Specimen Type: SERUM No comment entered. Ordering Provider: MAGUE CRUZ Report Released Date/Time: July 05, 2022 10:31 AM Reporting Lab: [facility] [place] [facility] [address] [facility] [address] Performing Lab: [facility] [address] [facility] [address] [facility] [place] [facility] BASIC METABOLIC PANEL (fasting) SODIUM [MOLES/VOLU ME] IN SERUM OR PLASMA 142 mmol/L 135 - 145 01/04 Specimen Type: SERUM No comment entered. Ordering Provider: MAGUE CRUZ Report Released Date/Time: July 05, 2022 10:31 AM Reporting Lab: [facility] [address] [facility] [address] Performing Lab: [facility] [place] [facility] [address] [facility] [address] [facility] [place] [facility] BASIC METABOLIC PANEL (fasting) POTASSIUM [MOLES/VOLU ME] IN SERUM OR PLASMA 4.3 mmol/L 3.5 - 5.0 01/04 Specimen Type: SERUM No comment entered. Ordering Provider: MAGUE CRUZ Report Released Date/Time: July 05, 2022 10:31 AM Reporting Lab: [facility] [place] [facility] [address] [facility] [address] Performing Lab: [facility] [place] [facility] [address] [facility] [address] [facility] [place] [facility] BASIC METABOLIC PANEL (fasting) CHLORIDE [MOLES/VOLU ME] IN SERUM OR PLASMA 103 mmol/L 100 - 110 01/04 Specimen Type: SERUM No comment entered. Ordering Provider: MAGUE CRUZ Report Released Date/Time: July 05, 2022 10:31 AM Reporting Lab: [facility] [place] [address] [facility] [address] Performing Lab: [facility] [address] [facility] [address] [facility] [place] [facility] BASIC METABOLIC PANEL (fasting) CARBON DIOXIDE, TOTAL [MOLES/VOLU ME] IN SERUM OR PLASMA 31 meq/L 20 - 30 01/04 H Specimen Type: SERUM No comment entered. Ordering Provider: AHMED,MOHAM MED JAWED Report Released Date/Time: July 05, 2022 10:31 AM Reporting Lab: [facility] [place] [facility] [address] [facility] [address] Performing Lab: [facility] [place] [facility] [address] [facility] [address] [facility] [place] [facility] BASIC METABOLIC PANEL (fasting) CREATININE [MASS/VOLUM E] IN SERUM OR PLASMA 0.95 mg/dL 0.50 - 1.40 01/04 Specimen Type: SERUM No comment entered. Ordering Provider: MAGUE CRUZ Report Released Date/Time: July 05, 2022 10:31 AM Reporting Lab: [facility] [place] [facility] [address] [facility] [address] Performing Lab: [facility] [place] [facility] [address] [facility] [address] [facility] [place] [facility] BASIC METABOLIC PANEL (fasting) GLOMERULAR FILTRATION RATE/1.73 SQ M.PREDICTED [VOLUME RATE/AREA] IN SERUM, PLASMA OR BLOOD BY CREATININE- BASED FORMULA (CKD-EPI 2020) 84 mL/min 60 01/04 Specimen Type: SERUM No comment entered. Ordering Provider: MAGUE CRUZ Report Released Date/Time: July 05, 2022 10:31 AM Reporting Lab: [facility] [place] [facility] [address] [facility] [address] Performing Lab: [facility] [place] [facility] [address] [facility] [address] [facility] [place] [facility] LIVER FUNCTION PROTEIN [MASS/VOLUM E] IN SERUM OR PLASMA 6.4 g/dL 6.0 - 8.3 01/04 Specimen Type: SERUM No comment entered. Ordering Provider: MAGUE CRUZ Report Released Date/Time: July 05, 2022 10:31 AM Reporting Lab: [facility] [place] [facility] [address] [facility] [address] Performing Lab: [facility] [place] [facility] [address] [facility] [address] [facility] [place] [facility] LIVER FUNCTION ALBUMIN [MASS/VOLUM E] IN SERUM OR PLASMA 4.0 g/dL 3.5 - 5.0 01/04 Specimen Type: SERUM No comment entered. Ordering Provider: MAGUE CRUZ Report Released Date/Time: July 05, 2022 10:31 AM Reporting Lab: [facility] [place] [facility] [address] [facility] [address] Performing Lab: [facility] [place] [facility] [address] [facility] [address] [facility] [place] [facility] LIVER FUNCTION ALKALINE PHOSPHATASE [ENZYMATIC ACTIVITY/VO LUME] IN SERUM OR PLASMA 71 U/L 40 - 150 01/04 Specimen Type: SERUM No comment entered. Ordering Provider: MAGUE CRUZ Report Released Date/Time: July 05, 2022 10:31 AM Reporting Lab: [facility] [place] [facility] [address] [facility] [address] Performing Lab: [facility] [place] [facility] [address] [facility] [address] [facility] [place] [facility] LIVER FUNCTION ASPARTATE AMINOTRANSF ERASE [ENZYMATIC ACTIVITY/VO LUME] IN SERUM OR PLASMA 22 U/L 5 - 34 01/04 Specimen Type: SERUM No comment entered. Ordering Provider: MAGUE CRUZ Report Released Date/Time: July 05, 2022 10:31 AM Reporting Lab: [facility] [place] [facility] [address] [facility] [address] Performing Lab: [facility] [place] [facility] [address] [facility] [address] [facility] [place] [facility] LIVER FUNCTION ALANINE AMINOTRANSF ERASE [ENZYMATIC ACTIVITY/VO LUME] IN SERUM OR PLASMA 37 U/L 01/04 Specimen Type: SERUM No comment entered. Ordering Provider: MAGUE CRUZ Report Released Date/Time: July 05, 2022 10:31 AM Reporting Lab: [facility] [place] [facility] [address] [facility] [address] Performing Lab: [facility] [place] [facility] [address] [facility] [address] [facility] [place] [facility] LIVER FUNCTION BILIRUBIN.T OTAL [MASS/VOLUM E] IN SERUM OR PLASMA 0.6 mg/dL 0.2 - 1.2 01/04 Specimen Type: SERUM No comment entered. Ordering Provider: MAGUE CRUZ Report Released Date/Time: July 05, 2022 10:31 AM Reporting Lab: [facility] [place] [facility] [address] [facility] [address] Performing Lab: [facility] [place] [facility] [address] [facility] [address] [facility] [place] [facility] LIPID PANEL FASTING CHOLESTEROL [MASS/VOLUM E] IN SERUM OR PLASMA 169 mg/dL 01/04 Specimen Type: SERUM No comment entered. Ordering Provider: MAGUE CRUZ Report Released Date/Time: July 05, 2022 10:31 AM Reporting Lab: [facility] [place] [facility] [address] [facility] [address] Performing Lab: [facility] [place] [facility] [address] [facility] [address] [facility] [place] [facility] LIPID PANEL FASTING TRIGLYCERID E [MASS/VOLUM E] IN SERUM OR PLASMA 92 mg/dL 0 - 150 01/04 Specimen Type: SERUM No comment entered. Ordering Provider: MAGUE CRUZ Report Released Date/Time: July 05, 2022 10:31 AM Reporting Lab: [facility] [place] [facility] [address] [facility] [address] Performing Lab: [facility] [place] [facility] [address] [facility] [address] [facility] [place] [facility] LIPID PANEL FASTING CHOLESTEROL IN LDL [MASS/VOLUM E] IN SERUM OR PLASMA BY CALCULATION 105 mg/dL 0 - 129 01/04 Specimen Type: SERUM No comment entered. Ordering Provider: MAGUE CRUZ Report Released Date/Time: July 05, 2022 10:31 AM Reporting Lab: [facility] [place] [facility] [address] [facility] [address] Performing Lab: [facility] [place] [facility] [address] [facility] [address] [facility] LIPID PANEL FASTING CHOLESTEROL .TOTAL/CHOL ESTEROL IN HDL [MASS RATIO] IN SERUM OR PLASMA 3.7 01/04 Specimen Type: SERUM No comment entered. Ordering Provider: MAGUE CRUZ Report Released Date/Time: July 05, 2022 10:31 AM Reporting Lab: [facility] [place] [facility] [address] [facility] [address] Performing Lab: [facility] [address] [facility] [address] [facility] LIPID PANEL FASTING CHOLESTEROL IN HDL [MASS/VOLUM E] IN SERUM OR PLASMA 46 mg/dL 40 - 60 01/04 Specimen Type: SERUM No comment entered. Ordering Provider: MAGUE CRUZ Report Released Date/Time: July 05, 2022 10:31 AM Reporting Lab: [facility] [place] [facility] [address] [facility] [address] Performing Lab: [facility] [place] [facility] [address] [facility] [address] [facility] CBC AND DIFF (AUTO) LEUKOCYTES [#/VOLUME] IN BLOOD BY AUTOMATED COUNT 6.59 10*3/u L 4.50 - 11.00 01/04 Specimen Type: BLOOD No comment entered. Ordering Provider: MAGUE CRUZ Report Released Date/Time: July 05, 2022 10:31 AM Reporting Lab: [facility] [place] [facility] [address] [facility] [address] Performing Lab: [facility] [place] [facility] [address] [facility] [address] [facility] CBC AND DIFF (AUTO) ERYTHROCYTE S [#/VOLUME] IN BLOOD BY AUTOMATED COUNT 5.31 10*6/u L 4.23 - 5.66 01/04 Specimen Type: BLOOD No comment entered. Ordering Provider: AHMED,MOHAM MED JAWED Report Released Date/Time: July 05, 2022 10:31 AM Reporting Lab: [facility] [place] [facility] [address] [facility] [address] Performing Lab: [facility] [place] [facility] [address] [facility] [address] [facility] CBC AND DIFF (AUTO) HEMOGLOBIN [MASS/VOLUM E] IN BLOOD 16.6 g/dL 12.8 - 17 01/04 Specimen Type: BLOOD No comment entered. Ordering Provider: MAGUE CRUZ [employer] Report Released Date/Time: July 05, 2022 10:31 AM Reporting Lab: [facility] [place] [facility] [address] [facility] [address] Performing Lab: [facility] [place] [facility] [address] [facility] [address] [facility] CBC AND DIFF (AUTO) HEMATOCRIT [VOLUME FRACTION] OF BLOOD BY AUTOMATED COUNT 50.5 39.2 - 50.4 01/04 H Specimen Type: BLOOD No comment entered. Ordering Provider: MAGUE CRUZ [employer] Report Released Date/Time: July 05, 2022 10:31 AM Reporting Lab: [facility] [place] [facility] [address] [facility] [address] Performing Lab: [facility] [place] [facility] [address] [facility] [address] [facility] CBC AND DIFF (AUTO) MCV [ENTITIC VOLUME] BY AUTOMATED COUNT 95.1 fL 82 - 99 01/04 Specimen Type: BLOOD No comment entered. Ordering Provider: MAGUE CRUZ [employer] Report Released Date/Time: July 05, 2022 10:31 AM Reporting Lab: [facility] [place] [facility] [address] [facility] [address] Performing Lab: [facility] [place] [facility] [address] [facility] [address] [facility] CBC AND DIFF (AUTO) MCHC [MASS/VOLUM E] BY AUTOMATED COUNT 32.9 g/dL 30.8 - 35.1 01/04 Specimen Type: BLOOD No comment entered. Ordering Provider: MAGUE CRUZ Report Released Date/Time: July 05, 2022 10:31 AM Reporting Lab: [facility] [place] [facility] [address] [facility] [address] Performing Lab: [facility] [place] [facility] [address] [facility] [address] [facility] CBC AND DIFF (AUTO) PLATELETS [#/VOLUME] IN BLOOD BY AUTOMATED COUNT 173 10*3/u L 140 - 360 01/04 Specimen Type: BLOOD No comment entered. Ordering Provider: MAGUE CRUZ Report Released Date/Time: July 05, 2022 10:31 AM Reporting Lab: [facility] [place] [facility] [address] [facility] [address] Performing Lab: [facility] [place] [facility] [address] [facility] [address] [facility] CBC AND DIFF (AUTO) ERYTHROCYTE DISTRIBUTIO N WIDTH [RATIO] BY AUTOMATED COUNT 12.3 12.0 - 16.0 01/04 Specimen Type: BLOOD No comment entered. Ordering Provider: MAGUE CRUZ Report Released Date/Time: July 05, 2022 10:31 AM Reporting Lab: [facility] [place] [facility] [address] [facility] [address] Performing Lab: [facility] [place] [facility] [address] [facility] [address] [facility] CBC AND DIFF (AUTO) MONOCYTES [#/VOLUME] IN BLOOD BY AUTOMATED COUNT 0.55 10*3/u L 0.30 - 1.10 01/04 Specimen Type: BLOOD No comment entered. Ordering Provider: MAGUE CRUZ Report Released Date/Time: July 05, 2022 10:31 AM Reporting Lab: [facility] [place] [facility] [address] [facility] [address] Performing Lab: [facility] [place] [facility] [address] [facility] [address] [facility] CBC AND DIFF (AUTO) MCH [ENTITIC MASS] BY AUTOMATED COUNT 31.3 pg 26.2 - 32.6 01/04 Specimen Type: BLOOD No comment entered. Ordering Provider: MAGUE CRUZ Report Released Date/Time: July 05, 2022 10:31 AM Reporting Lab: [facility] [place] [facility] [address] [facility] [address] Performing Lab: [facility] [place] [facility] [address] [facility] [address] [facility] CBC AND DIFF (AUTO) NEUTROPHILS /100 LEUKOCYTES IN BLOOD BY AUTOMATED COUNT 63.8 43.7 - 75.8 01/04 Specimen Type: BLOOD No comment entered. Ordering Provider: MAGUE CRUZ Report Released Date/Time: July 05, 2022 10:31 AM Reporting Lab: [facility] [place] [facility] [address] [facility] [address] Performing Lab: [facility] [place] [facility] [address] [facility] [address] [facility] CBC AND DIFF (AUTO) LYMPHOCYTES /100 LEUKOCYTES IN BLOOD BY AUTOMATED COUNT 25.6 14.0 - 42.3 01/04 Specimen Type: BLOOD No comment entered. Ordering Provider: MAGUE CRUZ Report Released Date/Time: July 05, 2022 10:31 AM Reporting Lab: [facility] [place] [facility] [address] [facility] [address] Performing Lab: [facility] [place] [facility] [address] [facility] [address] [facility] CBC AND DIFF (AUTO) MONOCYTES/1 00 LEUKOCYTES IN BLOOD BY AUTOMATED COUNT 8.3 5.1 - 13.7 01/04 Specimen Type: BLOOD No comment entered. Ordering Provider: MAGUE CRUZ Report Released Date/Time: July 05, 2022 10:31 AM Reporting Lab: [facility] [place] [facility] [address] [facility] [address] Performing Lab: [facility] [place] [facility] [address] [facility] [address] [facility] CBC AND DIFF (AUTO) EOSINOPHILS /100 LEUKOCYTES IN BLOOD BY AUTOMATED COUNT 1.4 0.4 - 6.8 01/04 Specimen Type: BLOOD No comment entered. Ordering Provider: MAGUE CRUZ Report Released Date/Time: July 05, 2022 10:31 AM Reporting Lab: [facility] [place] [facility] [address] [facility] [address] Performing Lab: [facility] [place] [facility] [address] [facility] [address] [facility] CBC AND DIFF (AUTO) BASOPHILS/1 00 LEUKOCYTES IN BLOOD BY AUTOMATED COUNT 0.6 0.1 - 2.0 01/04 Specimen Type: BLOOD No comment entered. Ordering Provider: MAGUE CRUZ Report Released Date/Time: July 05, 2022 10:31 AM Reporting Lab: [facility] [place] [facility] [address] [facility] [address] Performing Lab: [facility] [place] [facility] [address] [facility] [address] [facility] [place] CBC AND DIFF (AUTO) NEUTROPHILS [#/VOLUME] IN BLOOD BY AUTOMATED COUNT 4.20 10*3/u L 2.20 - 7.60 01/04 Specimen Type: BLOOD No comment entered. Ordering Provider: MAGUE CRUZ Report Released Date/Time: July 05, 2022 10:31 AM Reporting Lab: [facility] [place] [facility] [address] [facility] [address] Performing Lab: [facility] [place] [facility] [address] [facility] [address] [facility] CBC AND DIFF (AUTO) LYMPHOCYTES [#/VOLUME] IN BLOOD BY AUTOMATED COUNT 1.69 10*3/u L 1.00 - 3.20 01/04 Specimen Type: BLOOD No comment entered. Ordering Provider: AHMED,MOHAM MED JAWED Report Released Date/Time: July 05, 2022 10:31 AM Reporting Lab: [facility] [place] [facility] [address] [facility] [address] Performing Lab: [facility] [place] [facility] [address] [facility] [address] [facility] CBC AND DIFF (AUTO) EOSINOPHILS [#/VOLUME] IN BLOOD BY AUTOMATED COUNT 0.09 10*3/u L 0.03 - 0.44 01/04 Specimen Type: BLOOD No comment entered. Ordering Provider: MAGUE CRUZ Report Released Date/Time: July 05, 2022 10:31 AM Reporting Lab: [facility] [place] [facility] [address] [facility] [address] Performing Lab: [facility] [place] [facility] [address] [facility] [address] [facility] CBC AND DIFF (AUTO) BASOPHILS [#/VOLUME] IN BLOOD BY AUTOMATED COUNT 0.04 10*3/u L 0.01 - 0.13 01/04 Specimen Type: BLOOD No comment entered. Ordering Provider: MAGUE CRUZ Report Released Date/Time: July 05, 2022 10:31 AM Reporting Lab: [facility] [place] [facility] [address] [facility] [address] Performing Lab: [facility] [place] [facility] [address] [facility] [address] [facility] CBC AND DIFF (AUTO) IMMATURE GRANULOCYTE S/100 LEUKOCYTES IN BLOOD BY AUTOMATED COUNT 0.3 0.0 - 0.7 01/04 Specimen Type: BLOOD No comment entered. Ordering Provider: MAGUE CRUZ Report Released Date/Time: July 05, 2022 10:31 AM Reporting Lab: [facility] [place] [facility] [address] [facility] [address] Performing Lab: [facility] [place] [facility] [address] [facility] [address] [facility] CBC AND DIFF (AUTO) IMMATURE GRANULOCYTE S [#/VOLUME] IN BLOOD 0.02 10*3/u L 0.00 - 0.06 01/04 Specimen Type: BLOOD No comment entered. Ordering Provider: MAGUE CRUZ Report Released Date/Time: July 05, 2022 10:31 AM Reporting Lab: [facility] [place] [facility] [address] [facility] [address] Performing Lab: [facility] [place] [facility] [address] [facility] [address] [facility] [place] [facility] LIPID PANEL FASTING CHOLESTEROL [MASS/VOLUM E] IN SERUM OR PLASMA 167 mg/dL 7 - 199 06/30 Specimen Type: SERUM No comment entered. Ordering Provider: MAGUE CRUZ Report Released Date/Time: May 07, 2022 09:34 AM Reporting Lab: [facility] [place] [address] [address] Performing Lab: [facility] [place] [facility] [address] [facility] [address] [facility] [place] [facility] LIPID PANEL FASTING TRIGLYCERID E [MASS/VOLUM E] IN SERUM OR PLASMA 85 mg/dL 0 - 150 06/30 Specimen Type: SERUM No comment entered. Ordering Provider: MAGUE CRUZ Report Released Date/Time: May 07, 2022 09:34 AM Reporting Lab: [facility] [place] [address] [address] Performing Lab: [facility] [place] [facility] [address] [facility] [address] [facility] [place] [facility] LIPID PANEL FASTING CHOLESTEROL IN LDL [MASS/VOLUM E] IN SERUM OR PLASMA BY CALCULATION 108 mg/dL 0 - 129 06/30 Specimen Type: SERUM No comment entered. Ordering Provider: MAGUE CRUZ Report Released Date/Time: May 07, 2022 09:34 AM Reporting Lab: [facility] [place] [facility] [address] [facility] [address] Performing Lab: [facility] [place] [address] [address] [facility] [place] [facility] LIPID PANEL FASTING CHOLESTEROL .TOTAL/CHOL ESTEROL IN HDL [MASS RATIO] IN SERUM OR PLASMA 4.0 06/30 Specimen Type: SERUM No comment entered. Ordering Provider: MAGUE CRUZ Report Released Date/Time: May 07, 2022 09:34 AM Reporting Lab: [facility] [place] [facility] [address] [facility] [address] Performing Lab: [facility] [place] [facility] [address] [facility] [address] [facility] [place] [facility] LIPID PANEL FASTING CHOLESTEROL IN HDL [MASS/VOLUM E] IN SERUM OR PLASMA 42 mg/dL 40 - 60 06/30 Specimen Type: SERUM No comment entered. Ordering Provider: MAGUE CRUZ Report Released Date/Time: May 07, 2022 09:34 AM Reporting Lab: [facility] [place] [facility] [address] [facility] [address] Performing Lab: [facility] [place] [facility] [address] [facility] [address] [facility] [place] [facility] Vital Signs Combined list of inpatient and outpatient Vital Signs from Department of Defense and Veterans Affairs, ranging from 12 months to all on record, depending upon the facility. Vital Sign Value Date Comments Source SYSTOLIC BLOOD PRESSURE 154 11/11/19 24 09:02:37 [facility] [place] [facility] DIASTOLIC BLOOD PRESSURE 90 024 09:02:37 [facility] [place] [facility] PULSE OXIMETRY 90 11/11/2023 09:02:37 [facility] [place] [facility] WEIGHT 265 11/11/2023 09:02:37 [facility] [place] [facility] BMI 37kg/m2 11/11/2023 09:02:37 [facility] [place] [facility] PAIN 0 11/11/2023 09:02:37 [facility] [place] [facility] TEMPERATURE 98.7 11/11/2023 09:02:37 [facility] [place] [facility] PULSE 107 11/11/2023 09:02:37 [facility] [id number] 08/27 [facility] [id number] 08/27 [facility] En[facility] [id number] 01/05 [facility] OFFICE O/P EST MOD 30-39 MIN [id number] Diagnos is: ICD-10- CM J43.2 Centril obular emphyse ma
GORDON CRUZ MMED JAWED 01/12 [facility] En[facility] [id number] 01/13 [facility] En[facility] [id number] 01/14 [facility] Encounter [id number] Diagnos is: ICD-10- CM R91.8 Other nonspec ific abnorma l finding of lung field<b r/> NELYKARLA MICKIE 01/14 [facility] En[facility] [id number] 01/14 [facility] CMPTR OPHTH IMG OPTIC NERVE [id number] Diagnos is: ICD-10- CM H40.013 Open angle with borderl ine finding s, low risk, bilater al
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
CLAUDIA CAMARA 03/01 [facility] FIT SPECTACLES MULTIFOCAL [id number] Diagnos is: ICD-10- CM Z46.0 Encount er for fit/adj st of spectac les and contact lenses< br/> CLAUDIA CAMARA 03/01 [facility] En[facility] [id number] 03/17 [facility] En[facility] [id number] 03/22 [facility] Encounter [id number] 03/23 [facility] En[facility] [id number] 04/06 [facility] En[facility] [id number] 05/11 [facility] OFFICE O/P EST MOD 30 MIN [id number] Diagnos is: ICD-10- CM J43.2 Centril obular emphyse ma
GORDON CRUZ MMED JAWED 05/11 [facility] QNHP OL DIG ASSMT&MGMT 11- [id number] Diagnos is: ICD-10- CM R91.1 Solitar y pulmona ry nodule< br/> MICHAEL GOMEZECCA L 05/11 [facility] En[facility] [id number] 07/25 [facility] En[facility] [id number] 07/26 [facility] En[facility] [id number] 08/14 [facility] Encounter [id number] 08/29 [facility] Encounter [id number] 09/04 [facility] Encounter [id number] 09/28 [facility] Encounter [id number] 10/27 [facility] Encounter [id number] 10/30 [facility] En[facility] [id number] 10/31 [facility] Encounter [id number] 11/06 [facility] OFFICE O/P EST HI 40 MIN [id number] 1. Diagnos is: ICD-10- CM J43.2 Centril obular emphyse ma
FUREDWARD,TI NA 11/10 [facility] En[facility] [id number] 11/10 [facility] En[facility] [id number] 1.11/15 [facility] Encounter [id number]/24 [facility] En[facility] [id number] 1.11/24 [facility] OFFICE O/P NEW MOD 45 MIN [id number] Diagnos is: ICD-10- CM L57.0 Actinic keratos is
ALECIA ESTEBAN 11/28 [facility] [id number] 1.12/06 [facility] Encounter [id number] 1.01/03 [facility]counter [id number] 01/18 [facility] En[facility] [id number] 02/12 [facility] [place] [facility] Social History Combined list of available smoking, tobacco, and other social history from Department of Defense and Veterans Affairs facilities. Social History Type Response Date Comment Source Tobacco smoking status IDIS VA-TOBACCO USER EVERY DAY 01/12/2023 [facility] History of tobacco use VA-TOBACCO DOESNT USE WI 30 MIN WAKEUP 01/12/2023 [facility] History of tobacco use VA-TOBACCO DOESNT USE WI 30 MIN WAKEUP 10/23/2021 [facility] History [facility] tobacco use VA-TOBACCO USER EVERY DAY [facility] History of tobacco use [place]-TOBACCO FORMER USER 10/10/2019 [facility] [facility] History of tobacco [facility] AC[facility] 10/26/2018 [facility] [place] [facility] History of tobacco use CURRENT SMOKER 08/04/2017 [facility] [facility] History of tobacco use QUIT TOBACCO USE IN PAST YEAR 01/31/2017 31 days [facility] [facility] History of tobacco use CURRENT SMOKER 01/26/2016 [facility] [place] [facility] History of tobacco use QUIT TOBACCO USE IN PAST YEAR 02/20/2015 [facility] [place] [facility] History of tobacco use CURRENT SMOKER 06/17/2014 Reports being an off and on smoker -cigarette s [facility] [place] [facility] History of tobacco use CURRENT SMOKER 09/14/2011 less than a pack a day [facility] [place] [facility] History of tobacco use CURRENT SMOKER 03/09/2010 1 ppd [facility] [place] [facility] History of tobacco use V1-PT DECLINES TOBACCO CESSATION MEDS 09/29/2009 [facility] [place] [facility] History [facility] tobacco use CURRENT SMOKER 01/29/2009 [facility] [place] [facility] History of tobacco use CURRENT SMOKER 03/17/2005 [facility] [place] [facility] Plan of Care List of future care activities from [facility] facilities. Additional future care activities may be listed in the Assessment and Plan section. Date/Time Care Activity Care Activity Detail Facili ty 02/21/2024 AMBULATORY - MEDICINE [facility] [place] [facility] 02/27/2024 AMBULATORY - MEDICINE [facility] [place] [facility] 03[facility]20/2024 AMBULATORY - MEDICINE [facility] [place] [facility] 05[facility]10/2024 AMBULATORY - NONE AMBULATORY - NONE [facility] [place] [facility] 05[facility]10/2024 AMBULATORY - MEDICINE AMBULATORY - MEDICI NE [facility] Advance Directives List of completed, amended, or rescinded Advance Directives on record at Department of [facility] facilities. An actual copy of the Directive is not included. Date Advance Directive Provider Source 11/11/2023 ADVANCE DIRECTIVE JACOB DEL TORO [place] [facility]
--- OUTSIDE RECORDS SUMMARY | 2024-02-21 09:53 | XMS_ITS ---
Author Name [place] Address [address] [place] [address] Care Team Providers Care Patcher Bowling Ball Name Role Phone PRINCESS RAMON Primary Care [...] PART A Jul 15, 2013 PART A [id number] [facility] BRAD CUENCA JR PATIENT MEDICARE (WNR) MEDICARE (M) PART B Jul 15, 2013 PART B [id number] BRAD CUENCA JR PATIENT Selected Encounter [...] The data comes from all [place] treatment [facility]. Appointment Date/Time Appointment Type Appointme nt Facility Name Feb 21, 2024 09:45 AM [facility] Feb 27, 2024 10:00 AM AM[facility]UL[facility] - [facility]ICINE [facility] Mar 20, 2024 09:00 AM AMBULATORY - MEDICINE [facility] May 10, 2024 09:30 AM [facility] May 10, 2024 10:30 AM AMBULATORY - MEDICINE [facility] Active, Pending, and Scheduled Orders This section includes a listing of several types of active, pending, and scheduled orders, including clinic medications orders, diagnostic test orders, procedure orders and consult orders; where the start date of the order is 45 days before the date of the Encounter or 45 days after the date of theEncounter. The data comes from all [facility]. Test Date/Time Test Type Test Details Facility Name Jan 05, 2024 08:22 AM Consult Order COMM[facility]ITY [facility]ARE[facility]PULMON[facility] REHAB Cons Clinical Neuropsychologist's Choice [facility] Social History: Smoking Status (Most current) and Tobacco Use (All prior to encounter date) This section includes the most current, and the historical, smoking and tobacco- related health factors from the [place] facility where the Encounter took place. Current Smoking Status This section includes the most current smoking, or tobacco-related health factor, from the [place] facility where the Encounter took place. Date/Time Current Smoking Status Comment Shanell it Jan 12, 2023 09:00 AM VA-TOBACCO USER EVERY DAY [facility] Tobacco Use History This section includes a history of the smoking, or tobacco-related health factors, that were collected on or before the date of the Encounter. The data comes from the [place] facility where the Encounter took place. Date/Time Smoking Status/Tobac co Use Comment Facility Jan 12, 2023 09:00 AM VA-TOBACCO USE 30 YEARS OR MORE [facility] Jan 12, 2023 09:00 AM VA-TOBACCO USE ADVICE [facility] [place] [facility] Jan 12, 2023 09:00 AM VA-TOBACCO USE HANDWRITING EXPERT NO [facility] [place] [facility] Jan 12, 2023 09:00 AM VA-TOBACCO USE MED NO [facility] [place] [facility] Jan 12, 2023 09:00 AM VA-TOBACCO USER EVERY DAY [facility] [place] [facility] Oct 23, 2021 08:00 AM VA-TOBACCO DOESNT USE WI 30 MIN WAKEUP [place] [facility] [place] [facility] Oct 23, 2021 08:00 AM VA-TOBACCO USE 30 YEARS OR MORE [facility] [place] [facility] Oct 23, 2021 08:00 AM VA-TOBACCO USE ADVICE [facility] [place] [facility] Oct 23, 2021 08:00 AM VA-TOBACCO USE HANDWRITING EXPERT NO [facility] [place] [facility] Oct 23, 2021 08:00 AM VA-TOBACCO USE MED NO [facility] [place] [facility] Oct 23, 2021 08:00 AM VA-TOBACCO USER EVERY DAY [place] [facility] [place] [facility] Oct 29, 2020 10:00 AM VA-TOBACCO DOESNT USE WI 30 MIN WAKEUP [place] [facility] [place] [facility] Oct 29, 2020 10:00 AM VA-TOBACCO USE 30 YEARS OR MORE [place] [facility] [place] [facility] Oct 29, 2020 10:00 AM VA-TOBACCO USE ADVICE [facility] [place] [facility] Oct 29, 2020 10:00 AM VA-TOBACCO USE HANDWRITING EXPERT YES [facility] [place] [facility] Oct 29, 2020 10:00 AM VA-TOBACCO USE MED NOTIFY PROVIDER [place] [facility] [place] [facility] Oct 29, 2020 10:00 AM VA-TOBACCO USER EVERY DAY [place] [facility] [place] [facility] Oct 10, 2019 11:00 AM VA-TOBACCO FORMER USER [facility] [place] [facility] Oct 10, 2019 11:00 AM VA-TOBACCO QUIT < 1 YEAR [facility] [place] [facility] Oct 26, 2018 07:55 AM VA-TOBACCO USE > 15 LESS THAN 30 YEARS [place] [facility] [facility] Oct 26, 2018 07:55 AM VA-TOBACCO USE ADVICE [facility] [place] [facility] Oct 26, 2018 07:55 AM VA-TOBACCO USE HANDWRITING EXPERT NO [place] [facility] [place] [facility] Oct 26, 2018 07:55 AM VA-TOBACCO USE MED [facility] [place] [facility] Oct 26, 2018 07:55 AM VA-TOBACCO USE WI 30 MIN OF WAKEUP [place] [facility] [place] [facility] Oct 26, 2018 07:55 AM VA-TOBACCO USER EVERY DAY [place] [facility] [place] [facility] Aug 04, 2017 08:53 AM CURRENT SMOKER [facility] [place] [facility] Aug 04, 2017 08:53 AM V1-PT DECLINES REF TO TOBACCO CESS PRGM [place] [facility] [place] [facility] Aug 04, 2017 08:53 AM V1-PT DECLINES TOBACCO CESSATION MEDS [facility] [place] [facility] Aug 04, 2017 08:53 AM V1-PT THINKING ABOUT QUIT TOBACCO USE [facility] [place] [facility] Jan 31, 2017 09:51 AM QUIT TOBACCO USE IN PAST YEAR 31 days [facility] [facility] Jan 26, 2016 08:36 AM CURRENT SMOKER [place] [facility] [place] [facility] Jan 26, 2016 08:36 AM V1-PT DECLINES REF TO TOBACCO CESS PRGM [place] [facility] [place] [facility] Jan 26, 2016 08:36 AM V1-PT DECLINES TOBACCO CESSATION MEDS [facility] [place] [facility] Jan 26, 2016 08:36 AM V1-PT THINKING ABOUT QUIT TOBACCO USE [facility] [place] [facility] Feb 20, 2015 10:25 AM QUIT TOBACCO USE IN PAST YEAR [place] [facility] [place] [facility] June 17, 2014 07:37 AM CURRENT SMOKER Reports being an off and on smoker -cigarettes [facility] [place] [facility] June 17, 2014 07:37 AM V1-PT DECLINES REF TO TOBACCO CESS PRGM [place] [facility] [place] [facility] June 17, 2014 07:37 AM V1-PT DECLINES TOBACCO CESSATION MEDS [facility] [place] [facility] June 17, 2014 07:37 AM V1-PT THINKING ABOUT QUIT TOBACCO USE [facility] [place] [facility] Sep 14, 2011 09:51 AM CURRENT SMOKER less than a pack a day [facility] [place] [facility] Sep 14, 2011 09:51 AM V1-PT DECLINES REF TO TOBACCO CESS PRGM [facility] [place] [facility] Sep 14, 2011 09:51 AM V1-PT DECLINES TOBACCO CESSATION MEDS [facility] [place] [facility] Sep 14, 2011 09:51 AM V1-PT THINKING ABOUT QUIT TOBACCO USE [facility] [facility] Mar 09, 2010 09:32 AM CURRENT SMOKER 1 ppd [facility] [place] [facility] Mar 09, 2010 09:32 AM V1-PT DECLINES TOBACCO CESSATION MEDS [facility] [facility] Mar 09, 2010 09:32 AM V1-PT REF TO NON-VA TOBACCO CESS PRGM [facility] [place] [facility] Mar 09, 2010 09:32 AM V1-PT THINKING ABOUT QUIT TOBACCO USE [facility] [place] [facility] Sep 29, 2009 02:07 PM V1-PT DECLINES REF TO TOBACCO CESS PRGM [facility] [place] [facility] Sep 29, 2009 02:07 PM V1-PT DECLINES TOBACCO CESSATION MEDS [facility] Sep 29, 2009 02:07 PM V1-PT NOT INTERESTED IN QUIT TOBACCO USE [facility] [place] [facility] Jan 29, 2009 11:00 AM CURRENT SMOKER 1 ppd [facility] [place] [facility] Jan 29, 2009 11:00 AM V1-PT DECLINES TOBACCO CESSATION MEDS [facility] [place] [facility] Jan 29, 2009 11:00 AM V1-PT READY TO QUIT TOBACCO USE [facility] [place] [facility] Mar 17, 2005 08:36 AM CURRENT SMOKER [facility] Advance Directives: All historical and current Section Date Range: From patient's date of to the date document was created. This section includes ALL of a patient's completed or amended [place] Advance and Rescinded Directives. The entries below indicate that a directive exists for the patient, but an actual copy is not included with this document. The data comes from all [place] facilities. Date Advance Directives Provider Source Nov 11, 2023 ADVANCE DIRECTIVE FLORENCIO DEL TOROL Mariusz [place] [facility] Encounter Notes: All associated encounter notes This section contains the clinical notes associated to the Encounter. Date/Time Encounter Note(s) Provider Source Feb 13, 2024 10:42 AM PHARMACY NOTE: LOCAL TITLE: V1 PHARMACY CUSTOMER CARE MEDICATION RENEWAL STANDARD TITLE: PHARMACY NOTE DATE OF NOTE: FEB 13, 2024@10:42 ENTRY DATE: FEB 13, 2024@10:42:43 AUTHOR: JATIN RUSHING EXP COSIGNER: URGENCY: STATUS: COMPLETED Date: Jan Division: [facility] referred by Pharmacy Call Center for medication renewal: Non-controlled/maintenanc e medication Medications requested: [id number] FINASTERIDE 5MG TAB Defer to primary care provider To be mailed . Please review and renew if appropriate. *This note was generated by [facility]/[place] Pharmacy Customer Care. If you have any questions or need assistance, do not contact this author. Please refer all questions to your local, on-site pharmacy departments. /natalie/ JATIN RUSHING CPhT SUPERVISING EDITOR TRAILER, [place]/PHARMACY CUSTOMER CARE Signed: 02/13/2024 10:42 Receipt Acknowledged By: 02/13/2024 16:21 /natalie/ PRINCESS RAMON D.O. PHYSICIAN 02/13/2024 10:45 /natalie/ ZENON RODAS, MSN, RN, CNL PRIMARY CARE TEAM NURSE JATIN RUSHING [place] [facility]
== END 2024-02-21 10:15 | disposition home or self-care (01) ==
PROVIDERS: PCP Obstetrics & Gynecology; Visit Provider Urology
DX: Z13.9 Encounter for screening, unspecified (principal)

== ENCOUNTER → 2024-02-21 09:34 | Outpatient (BNVA) | payer OTHER, SELFPAY | PROVIDERS: PCP Obstetrics & Gynecology; Visit Provider Urology | DX: N40.1 Benign prostatic hyperplasia with lower urinary tract symptoms (principal); R39.12 Poor urinary stream | CPT/HCPCS: 51798; 81003; 99202 ==

== ENCOUNTER 2024-04-11 10:39 | Outpatient (REF) | payer OTHER, SELFPAY ==
--- NOTE | ~2024-04-11 | US_ITS ---
CLINICAL HISTORY: R39.12 - Poor urinary stream US URINARY BLADDER Comparison: None Findings: The urinary bladder is unremarkable. Prevoid volume: 315 mLPostvoid volume: 269 mL Ureteral jets are visualized bilaterally. Prostate measures 4.8 x 3.7 x 5.0 cm equal to a volume of 47 mL. IMPRESSION: 1. Smooth urinary bladder outline. 2. Large postvoid residual of roughly 85 percent. 3. Prostatomegaly. This document has been electronically signed by: Jazmine Lira DO on 04/11/2024 15:51:09
--- OUTSIDE RECORDS SUMMARY | 2024-04-11 13:11 | XMS_ITS | Encounter Summary ---
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 Date/Time Encounter Type Encounter Description Reason Provider Source Mar 20, 2024 11:15 AM CPTRZD OPH DX IMG ANT SGM OPTOMETRY ICD-10-CM H40.013 Open angle with borderline findings, low risk, bilateral JAXPROMISE IHE Encounter Template Text not used by [place] Assessments - Encounter Diagnoses This section includes the primary and secondary diagnoses documented for the Encounter. Date/Time Primary/Secondary Diagnosis Diagnosis Name Provider Source Mar 21, 2024 07:19 AM PRIMARY Open angle with borderline findings, low risk, bilateral PROMISE CAMARA [facility] Mar 21, 2024 07:19 AM SECONDARY Anatomical narrow angle, bilateral JAXPROMISE [facility] Plan of Treatment: Future Appointments (+ 6 months) and Future Tests (+/- 45 days) The Plan of Treatment section includes [facility] care activities for the patient [facility] [place] [facility] This section includes future appointments and future orders which are active, pending or scheduled. Future Appointments This section includes appointments that were scheduled to occur 6 months from the date of the Encounter, up to a maximum of 20 appointments. The data comes from all [place] treatment facilities. Appointment Date/Time Appointment Type Appointme nt Facility Name May 10, 2024 09:30 AM AMBULATORY - NONE [facility] May 10, 2024 10:30 AM AMBULATORY - MEDICINE [facility] Social History: Smoking Status (Most current) and Tobacco Use (All prior to encounter date) This section includes the most current, and the historical, smoking and tobacco- related health factors from the [place] facility where the Encounter took place. Current Smoking Status This section includes the most current smoking, or tobacco-related health factor, from the [place] facility where the Encounter took place. Date/Time Current Smoking Status Comment Shanell shanks Jan 12, 2023 09:00 AM VA-TOBACCO USER EVERY DAY [facility] Tobacco Use History This section includes a history of the smoking, or tobacco-related health factors, that were collected on or before the date of the Encounter. The data comes from the [place] facility where the Encounter took place. 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 [facility] [place] [facility] Jan 12, 2023 09:00 AM VA-TOBACCO USE MED NO [facility] [place] [facility] Jan 12, 2023 09:00 AM VA-TOBACCO USER EVERY DAY [facility] [place] [facility] Oct 23, 2021 08:00 AM VA-TOBACCO DOESNT USE WI 30 MIN WAKEUP [facility] [place] [facility] Oct 23, 2021 08:00 AM VA-TOBACCO USE 30 YEARS OR MORE [facility] [place] [facility] Oct 23, 2021 08:00 AM VA-TOBACCO USE ADVICE [facility] [place] [facility] Oct 23, 2021 08:00 AM 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 [facility] [place] [facility] Oct 23, 2021 08:00 AM VA-TOBACCO USE MED NO [facility] [place] [facility] Oct 23, 2021 08:00 AM VA-TOBACCO USER EVERY DAY [facility] [place] [facility] Oct 29, 2020 10:00 AM VA-TOBACCO DOESNT USE WI 30 MIN WAKEUP [facility] [place] [facility] Oct 29, 2020 10:00 AM VA-TOBACCO USE 30 YEARS OR MORE [facility] [place] [facility] Oct 29, 2020 10:00 AM VA-TOBACCO USE ADVICE [facility] [place] [facility] Oct 29, 2020 10:00 AM 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 [facility] [place] [facility] Oct 29, 2020 10:00 AM VA-TOBACCO USE MED NOTIFY PROVIDER [facility] [place] [facility] Oct 29, 2020 10:00 AM VA-TOBACCO USER EVERY DAY [facility] [place] [facility] Oct 10, 2019 11:00 AM VA-TOBACCO FORMER USER [facility] [place] [facility] Oct 10, 2019 11:00 AM VA-TOBACCO QUIT < 1 YEAR [facility] [place] [facility] Oct 26, 2018 07:55 AM VA-TOBACCO USE > 15 LESS THAN 30 YEARS [facility] [place] [facility] Oct 26, 2018 07:55 AM VA-TOBACCO USE ADVICE [facility] [place] [facility] Oct 26, 2018 07:55 AM 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 [place] [facility] [place] [facility] Oct 26, 2018 07:55 AM VA-TOBACCO USE MED NO [place] [facility] [place] [facility] Oct 26, 2018 07:55 AM VA-TOBACCO USE WI 30 MIN OF WAKEUP [facility] [place] [facility] Oct 26, 2018 07:55 AM VA-TOBACCO USER EVERY DAY [place] [facility] [place] [facility] Aug 04, 2017 08:53 AM CURRENT SMOKER [facility] [place] [facility] Aug 04, 2017 08:53 AM V1-PT DECLINES REF TO TOBACCO CESS PRGM [facility] [place] [facility] Aug 04, 2017 08:53 AM V1-PT DECLINES TOBACCO CESSATION MEDS [facility] [place] [facility] Aug 04, 2017 08:53 AM V1-PT THINKING ABOUT QUIT TOBACCO USE [facility] [place] [facility] Jan 31, 2017 09:51 AM QUIT TOBACCO USE IN PAST YEAR 31 days [facility] [place] [facility] Jan 26, 2016 08:36 AM CURRENT SMOKER [facility] [place] [facility] Jan 26, 2016 08:36 AM V1-PT DECLINES REF TO TOBACCO CESS PRGM [facility] [place] [facility] Jan 26, 2016 08:36 AM V1-PT DECLINES TOBACCO CESSATION MEDS [facility] [place] [facility] Jan 26, 2016 08:36 AM V1-PT THINKING ABOUT QUIT TOBACCO USE [facility] [place] [facility] Feb 20, 2015 10:25 AM QUIT TOBACCO USE IN PAST YEAR [facility] [place] [facility] June 17, 2014 07:37 AM CURRENT SMOKER Reports being an off and on smoker -cigarettes [facility] [place] [facility] June 17, 2014 07:37 AM V1-PT DECLINES REF TO TOBACCO CESS PRGM [facility] [place] [facility] June 17, 2014 07:37 AM V1-PT DECLINES TOBACCO CESSATION MEDS [facility] [place] [facility] June 17, 2014 07:37 AM V1-PT THINKING ABOUT QUIT TOBACCO USE [facility] [place] [facility] Sep 14, 2011 09:51 AM CURRENT SMOKER less than a pack a day [facility] [place] [facility] Sep 14, 2011 09:51 AM V1-PT DECLINES REF TO TOBACCO CESS PRGM [facility] [place] [facility] Sep 14, 2011 09:51 AM V1-PT DECLINES TOBACCO CESSATION MEDS [facility] [place] [facility] Sep 14, 2011 09:51 AM V1-PT THINKING ABOUT QUIT TOBACCO USE [facility] [place] [facility] Mar 09, 2010 09:32 AM CURRENT SMOKER 1 ppd [facility] [place] [facility] Mar 09, 2010 09:32 AM V1-PT DECLINES TOBACCO CESSATION MEDS [facility] [place] [facility] Mar 09, 2010 09:32 AM V1-PT REF TO NON-VA TOBACCO CESS PRGM [facility] [place] [facility] Mar 09, 2010 09:32 AM V1-PT THINKING ABOUT QUIT TOBACCO USE [facility] [place] [facility] Sep 29, 2009 02:07 PM V1-PT DECLINES REF TO TOBACCO CESS PRGM [facility] [place] [facility] Sep 29, 2009 02:07 PM V1-PT DECLINES TOBACCO CESSATION MEDS [facility] [place] [facility] Sep 29, 2009 02:07 PM V1-PT NOT INTERESTED IN QUIT TOBACCO USE [facility] [place] [facility] Jan 29, 2009 11:00 AM CURRENT SMOKER 1 ppd [facility] [place] [facility] Jan 29, 2009 11:00 AM V1-PT DECLINES TOBACCO CESSATION MEDS [facility] [place] [facility] Jan 29, 2009 11:00 AM V1-PT READY TO QUIT TOBACCO USE [facility] [place] [facility] Mar 17, 2005 08:36 AM CURRENT SMOKER [facility] Advance Directives: All historical and current Section Date Range: From patient's date of to the date document was created. This section includes ALL of a patient's completed or amended [place] Advance and Rescinded Directives. The entries below indicate that a directive exists for the patient, but an actual copy is not included with this document. The data comes from all [place] facilities. Date Advance Directives Provider Source Nov 11, 2023 ADVANCE DIRECTIVE JACOB DEL TORO [facility] Encounter Notes: All associated encounter notes This section contains the clinical notes associated to the Encounter. Date/Time Encounter Note(s) Provider Source Mar 20, 2024 11:55 AM OPTOMETRY CONSULT: LOCAL TITLE: CONSULT REPORT/OPTOMETRY OCT STANDARD TITLE: OPTOMETRY CONSULT DATE OF NOTE: MAR 20, 2024@11:55 ENTRY DATE: MAR 20, 2024@11:55:34 AUTHOR: IVANA HOLT COSIGNER: ADNOIS CAMARA URGENCY: STATUS: COMPLETED CONSULT REPORT/OPTOMETRY OCT Has ADDENDA RNFL OCT report: RNFL OCT reviewed for glaucoma suspect due to family history and cupping OD: average c/d 0.70, vertical c/d 0.58, disc area 2.83 mm^2. Average RNFL thickness 99 microns. No thinning noted all quadrants. OS: average c/d 0.59, vertical c/d 0.56, disc area 2.32 mm^2. Average RNFL thickness 98 microns. No thinning noted all quadrants. Anterior segment OCT OD: nasal angle 20 degrees, temporal 25 degrees OS:nasal angle ~27 degrees, temporal 24 degrees A/P: Open angle with borderline findings, low risk, bilateral Pt is a glaucoma suspect due to cupping and family history. No change in ONH appearance today, OCT findings consistent and stable from previous imaging, likely physiological cupping. OCT in the future if glaucomatous changes present. /natalie/ JOCELYN HOLT OPTOMETRY STUDENT Signed: 03/20/2024 12:10 /natalie/ Adonis Camara OD CHIEF OF OPTOMETRY Cosigned: 03/21/2024 07:16 03/21/2024 ADDENDUM STATUS: COMPLETED Review both optic nerve and anterior segment OCT of patient considered bilateral low risk glaucoma suspect also open angle with borderline findings, low risk also with positive family history of anatomically narrow angle glaucoma, multiple family members. Optic nerve OCT right eye shows large disc size with corresponding large cupping but no evidence of nerve fiber layer loss or defect in either eye. Optic nerve OCT also shows larger disc size although smaller than right eye with moderate optic nerve cupping again with no evidence of nerve fiber layer loss or defect either eye. Will continue to monitor as bilateral low risk glaucoma suspect, open angle with borderline findings, low risk HI with plan for repeat exam and repeat imaging in 12 months. ++++++++++++++++++++++++ ++++++++++++++++++++++++ ++++++++++++++++++++++++ ++++++++ ++++++++++++++++++++++++ ++++++++++++++++++++++++ ++++++++++++++++++++++++ ++++++++ Anterior segment OCT obtained as well due to positive family history of anatomically narrow angle glaucoma along with multiple family members. Anterior segment OCT each eye shows angle structure open to greater than 20 degrees nasal and temporal each eye do not appear occluded blood present. Will continue to monitor for possible progressive narrowing and risk of anatomically narrow angle glaucoma given family history. Keep scheduled follow-up for repeat exam and plan for repeat imaging in 12 months. /natalie/ Adonis Camara OD CHIEF OF OPTOMETRY Signed: 03/21/2024 07:19 IVANA HOLT [facility]L [facility]
--- OUTSIDE RECORDS SUMMARY | 2024-04-11 13:11 | XMS_ITS | Encounter Summary ---
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 Date/Time Encounter Type Encounter Description Reason Provider Source Mar 22, 2024 11:00 AM FIT SPECTACLES MULTIFOCAL OPTOMETRY ICD-10-CM Z46.0 Encounter for fit/adjst of spectacles and contact lenses PROMISE CAMARA Encounter Template Text not used by [place] Assessments - Encounter Diagnoses This section includes the primary and secondary diagnoses documented for the Encounter. Date/Time Primary/Secondary Diagnosis Diagnosis Name Provider Source Mar 22, 2024 11:00 AM PRIMARY Encounter for fit/adjst of spectacles and contact lenses CATRACHITA [facility]MMANUEL [facility] Plan of Treatment: Future Appointments (+ 6 months) and Future Tests (+/- 45 days) The Plan of Treatment section includes future care activities for the patient [facility]. This section includes future appointments [...] 10, 2024 09:30 AM [facility] May 10, 2024 10:30 AM [facility] Social History: Smoking Status (Most current) [...] 2023 09:00 AM VA-TOBACCO USER EVERY DAY [facility] Tobacco Use History This section includes a history of the smoking, or tobacco-related health factors, that were collected on or before the date of the Encounter. The data comes from the [place] facility where the Encounter took place. 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 [facility] [place] [facility] Jan 12, 2023 09:00 AM VA-TOBACCO USE MED NO [facility] [place] [facility] Jan 12, 2023 09:00 AM VA-TOBACCO USER EVERY DAY [facility] [place] [facility] Oct 23, 2021 08:00 AM VA-TOBACCO DOESNT USE WI 30 MIN WAKEUP [facility] [place] [facility] Oct 23, 2021 08:00 AM VA-TOBACCO USE 30 YEARS OR MORE [facility] [place] [facility] Oct 23, 2021 08:00 AM VA-TOBACCO USE ADVICE [facility] [place] [facility] Oct 23, 2021 08:00 AM 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 [facility] [place] [facility] Oct 23, 2021 08:00 AM VA-TOBACCO USE MED NO [facility] [place] [facility] Oct 23, 2021 08:00 AM VA-TOBACCO USER EVERY DAY [facility] [place] [facility] Oct 29, 2020 10:00 AM VA-TOBACCO DOESNT USE WI 30 MIN WAKEUP [facility] [place] [facility] Oct 29, 2020 10:00 AM VA-TOBACCO USE 30 YEARS OR MORE [facility] [place] [facility] Oct 29, 2020 10:00 AM VA-TOBACCO USE ADVICE [facility] [place] [facility] Oct 29, 2020 10:00 AM 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 [facility] [place] [facility] Oct 29, 2020 10:00 AM VA-TOBACCO USE MED NOTIFY PROVIDER [facility] [place] [facility] Oct 29, 2020 10:00 AM VA-TOBACCO USER EVERY DAY [facility] [place] [facility] Oct 10, 2019 11:00 AM VA-TOBACCO FORMER USER [facility] [place] [facility] Oct 10, 2019 11:00 AM VA-TOBACCO QUIT < 1 YEAR [facility] [place] [facility] Oct 26, 2018 07:55 AM VA-TOBACCO USE > 15 LESS THAN 30 YEARS [facility] [place] [facility] Oct 26, 2018 07:55 AM VA-TOBACCO [facility]VICE [facility] [place] [facility] Oct 26, 2018 07:55 AM 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 [facility] [place] [facility] Oct 26, 2018 07:55 AM VA-TOBACCO USE MED NO [facility] [place] [facility] Oct 26, 2018 07:55 AM VA-TOBACCO USE WI 30 MIN OF WAKEUP [facility] [place] [facility] Oct 26, 2018 07:55 AM VA-TOBACCO USER EVERY DAY [facility] [place] [facility] Aug 04, 2017 08:53 AM CURRENT SMOKER [facility] [place] [facility] Aug 04, 2017 08:53 AM V1-PT DECLINES REF TO TOBACCO CESS PRGM [facility] [place] [facility] Aug 04, 2017 08:53 AM V1-PT DECLINES TOBACCO CESSATION MEDS [facility] Aug 04, 2017 08:53 AM V1-PT THINKING ABOUT QUIT TOBACCO USE [facility] [facility] Jan 31, 2017 09:51 AM QUIT TOBACCO USE IN PAST YEAR 31 days [facility] Jan 26, 2016 08:36 AM CURRENT SMOKER [facility] [place] [facility] Jan 26, 2016 08:36 AM V1-PT DECLINES REF TO TOBACCO CESS PRGM [facility] [place] [facility] Jan 26, 2016 08:36 AM V1-PT DECLINES TOBACCO CESSATION MEDS [facility] [place] [facility] Jan 26, 2016 08:36 AM V1-PT THINKING ABOUT QUIT TOBACCO USE [facility] [place] [facility] Feb 20, 2015 10:25 AM QUIT TOBACCO USE IN PAST YEAR [facility] [place] [facility] June 17, 2014 07:37 AM CURRENT SMOKER Reports being an off and on smoker -cigarettes [facility] [place] [facility] June 17, 2014 07:37 AM V1-PT DECLINES REF TO TOBACCO CESS PR[facility] June 17, 2014 07:37 AM V1-PT DECLINES TOBACCO CESSATION MEDS [facility] [place] [facility] June 17, 2014 07:37 AM V1-PT THINKING ABOUT QUIT TOBACCO USE [facility] Sep 14, 2011 09:51 AM CURRENT SMOKER less than a pack a day [facility] Sep 14, 2011 09:51 AM V1-PT DECLINES REF TO TOBACCO CESS PRGM [facility] Sep 14, 2011 09:51 AM V1-PT DECLINES TOBACCO CESSATION MEDS [facility] Sep 14, 2011 09:51 AM V1-PT THINKING ABOUT QUIT TOBACCO USE [facility] Mar 09, 2010 09:32 AM CURRENT SMOKER 1 ppd [facility] Mar 09, 2010 09:32 AM V1-PT DECLINES TOBACCO CESSATION MEDS [facility] Mar 09, 2010 09:32 AM V1-PT REF TO NON-VA TOBACCO CESS PRGM [facility] Mar 09, 2010 09:32 AM V1-PT THINKING ABOUT QUIT TOBACCO USE [facility] Sep 29, 2009 02:07 PM V1-PT DECLINES REF TO TOBACCO CESS PRGM [facility] Sep 29, 2009 02:07 PM V1-PT DECLINES TOBACCO CESSATION MEDS [facility] Sep 29, 2009 02:07 PM V1-PT NOT INTERESTED IN QUIT TOBACCO USE [facility] Jan 29, 2009 11:00 AM CURRENT SMOKER 1 ppd [facility] Jan 29, 2009 11:00 AM V1-PT DECLINES TOBACCO CESSATION MEDS [facility] Jan 29, 2009 11:00 AM V1-PT READY TO QUIT TOBACCO USE [facility] Mar 17, 2005 08:36 AM CURRENT SMOKER [facility] Advance Directives: All historical and current Section Date Range: From patient's date of to the date document was created. This section includes ALL of a patient's completed or amended [place] Advance and Rescinded Directives. The entries below indicate that a directive exists for the patient, but an actual copy is not included with this document. The data comes from all [place] facilities. Date Advance Directives Provider Source Nov 11, 2023 ADVANCE DIRECTIVE ALVERTOJACOB C [facility] Encounter Notes: All associated encounter notes This section contains the clinical notes associated to the Encounter. Date/Time Encounter Note(s) Provider Source Mar 22, 2024 11:00 AM OPTOMETRY NOTE: LOCAL TITLE: OPTOMETRY NOTE STANDARD TITLE: OPTOMETRY NOTE DATE OF NOTE: MAR 22, 2024@11:00 ENTRY DATE: MAR 22, 2024@11:00:41 AUTHOR: CELIA ANNA COSIGNER: URGENCY: STATUS: COMPLETED OPTOMETRY NOTE Has ADDENDA The quote provided below is for informational purposes only. Please verify prior to the creation of a purchase order. BRAD CUENCA 1490 RX INFORMATION OD +3.25 -0.75 X100 Add:+2.50 Pzm:0.00 Dir: Prz2:0.00 Dir2: OS +4.25 -1.00 X80 Add:+2.50 Pzm:0.00 Dir: Prz2:0.00 Dir2: FITTING INFORMATION FPD: NPD: [place]:R:36.5 L:36.5 SEG HT:R:22 L:22 Tint:BROWN Shade:3 VA Billable Items FRAME: EMMETT HARRISON [id number] Right Lens: POLY VA PROGRESSIVE 1.586 POLY Left Lens: POLY VA PROGRESSIVE 1.586 POLY SOLID TINT CLIN items 0004 - Progressive - Glass Plastic Poly --------- The quote provided below is for informational purposes only. Please verify prior to the creation of a purchase order. BRAD Lamb BANG 1490 RX INFORMATION OD +3.25 -0.75 X100 Add:+2.50 Pzm:0.00 Dir: Prz2:0.00 Dir2: OS +4.25 -1.00 X80 Add:+2.50 Pzm:0.00 Dir: Prz2:0.00 Dir2: FITTING INFORMATION FPD: NPD: [place]:R:36.5 L:36.5 SEG HT:R:23 L:23 Tint:None Shade:None VA Billable Items FRAME: FX10 ERASMO [id number] Right Lens: POLY VA PROGRESSIVE 1.586 POLY Left Lens: POLY VA PROGRESSIVE 1.586 POLY CLIN items [employer] - [employer] Frame 0004 - Progressive - Glass Plastic Poly /natalie/ CELIA ANNA SHOE IRONER Signed: 03/22/2024 11:01 Receipt Acknowledged By: 03/22/2024 12:56 /natalie/ CATRACHITA EMMANUEL OPTOMETRY TECH 03/22/2024 ADDENDUM STATUS: COMPLETED PDS [employer] Officer fit patient with 2 pair(s) of PAL eyeglasses on 03/20/2024. OPT HT entered consult(s) as requested for provider signature. /natalie/ CATRACHITA EMMANUEL OPTOMETRY TECH Signed: 03/22/2024 12:59 CELIA ANNA [facility]
--- OUTSIDE RECORDS SUMMARY | 2024-04-11 13:12 | XMS_ITS ---
Author Name [facility] [facility] [place] [facility] [place] Address [address] [place] [address] Care Team Providers Care Hand Hose Cutter Name Role Phone PRINCESS RAMON Primary [...] PART A Jul 15, 2013 PART A [id number] [phone] BRAD CUENCA JR PATIENT MEDICARE (WNR) MEDICARE (M) PART B Jul 15, 2013 PART B [id number] BRAD CUENCA JR PATIENT MEDICARE (WNR) MEDICARE (M) PART A Jul 15, 2013 PART A [id number] BRAD CUENCA JR PATIENT MEDICARE (WNR) MEDICARE (M) PART B Jul 15, 2013 PART B [id number] BRAD CUENCA JR PATIENT Selected Encounter This section includes the [place] on [place] at [place] for [place] Encounter. 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 Date/Time Primary/Secondary Diagnosis Diagnosis Name Provider Source Mar 21, 2024 07:09 AM PRIMARY Rhinophyma PROMISE CAMARA [facility] [place] [facility] Mar 21, 2024 07:09 AM SECONDARY Benign neoplasm of left choroid PROMISE CAMARA [facility] [place] [facility] Mar 21, 2024 07:09 AM SECONDARY Combined forms of age-related cataract, bilateral PROMISE CAMARA [facility] [place] [facility] Mar 21, 2024 07:09 AM SECONDARY Dry eye syndrome of bilateral lacrimal glands PROMISE CAMARA [facility] [place] [facility] Mar 21, 2024 07:09 AM SECONDARY Meibomian gland dysfnct left eye, upper and lower eyelids PROMISE CAMARA [facility] [place] [facility] Mar 21, 2024 07:09 AM SECONDARY Meibomian gland dysfnct right eye, upper and lower eyelids PROMISE CAMARA [facility] [place] [facility] Mar 21, 2024 07:09 AM SECONDARY Open angle with borderline findings, low risk, bilateral PROMISE CAMARA [facility] [place] [facility] Mar 21, 2024 07:09 AM SECONDARY Other rosacea PROMISE CAMARA [facility] [place] [facility] Plan of Treatment: Future Appointments (+ 6 months) and Future Tests (+/- 45 days) The Plan of Treatment section includes future care activities for the patient from all [place] treatmentfacilities. This section includes future appointments and future orders which are active, pending or scheduled. Future Appointments This section includes appointments that were scheduled to occur 6 months from the date of the Encounter, up to a maximum of 20 appointments. The data comes from all [place] treatment facilities. Appointment Date/Time Appointment Type Appointme nt Facility Name May 10, 2024 09:30 AM AMBULATORY - NONE [facility] [place] [facility] May 10, 2024 10:30 AM AMBULATORY - [place]ICINE [place] [facility] [place] [facility] Social History: Smoking Status (Most current) [...] 2023 09:00 AM VA-TOBACCO USER EVERY DAY [place] [facility] [place] [facility] Tobacco Use History This section includes a history of the smoking, or tobacco-related health factors, that were collected on or before the date of the Encounter. The data comes from the [place] facility where the Encounter took place. 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 [facility] [place] [facility] Jan 12, 2023 09:00 AM VA-TOBACCO USE MED NO [facility] [place] [facility] Jan 12, 2023 09:00 AM VA-TOBACCO USER EVERY DAY [facility] [place] [facility] Oct 23, 2021 08:00 AM VA-TOBACCO DOESNT USE WI 30 MIN WAKEUP [facility] [place] [facility] Oct 23, 2021 08:00 AM VA-TOBACCO USE 30 YEARS OR MORE [facility] [place] [facility] Oct 23, 2021 08:00 AM VA-TOBACCO USE ADVICE [facility] [place] [facility] Oct 23, 2021 08:00 AM VA-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 USE 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 [facility] [place] [facility] Oct 23, 2021 08:00 AM VA-TOBACCO USE MED NO [facility] [place] [facility] Oct 23, 2021 08:00 AM VA-TOBACCO USER EVERY DAY [facility] [place] [facility] Oct 29, 2020 10:00 AM VA-TOBACCO DOESNT USE WI 30 MIN WAKEUP [place] [facility] [place] [facility] Oct 29, 2020 10:00 AM VA-TOBACCO USE 30 YEARS OR MORE [facility] [place] [facility] Oct 29, 2020 10:00 AM VA-TOBACCO USE ADVICE [place] [facility] [facility] [place] [facility] Oct 29, 2020 10:00 AM VA-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 USE 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 [place] [facility] [place] [facility] Oct 29, 2020 10:00 AM VA-TOBACCO USE MED NOTIFY PROVIDER [place] [facility] [place] [facility] Oct 29, 2020 10:00 AM VA-TOBACCO USER EVERY DAY [place] [facility] [place] [facility] Oct 10, 2019 11:00 AM VA-TOBACCO FORMER USER [facility] [place] [facility] Oct 10, 2019 11:00 AM VA-TOBACCO QUIT < 1 YEAR [place] [facility] [place] [facility] Oct 26, 2018 07:55 AM VA-TOBACCO USE > 15 LESS THAN 30 YEARS [place] [facility] [place] [facility] Oct 26, 2018 07:55 AM VA-TOBACCO USE ADVICE [place] [facility] [place] [facility] Oct 26, 2018 07:55 AM VA-TOBACCO USE 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 [place] [facility] [place] [facility] Oct 26, 2018 07:55 AM VA-TOBACCO USE MED NO [place] [facility] [place] [facility] Oct 26, 2018 07:55 AM VA-TOBACCO USE WI 30 MIN OF WAKEUP [place] [facility] [place] [facility] Oct 26, 2018 07:55 AM VA-TOBACCO USER EVERY DAY [place] [facility] [place] [facility] Aug 04, 2017 08:53 AM CURRENT SMOKER [place] [facility] [place] [facility] Aug 04, 2017 08:53 AM V1-PT DECLINES REF TO TOBACCO CESS PRGM [place] [facility] [place] [facility] Aug 04, 2017 08:53 AM V1-PT DECLINES TOBACCO CESSATION MEDS [place] [facility] [place] [facility] Aug 04, 2017 08:53 AM V1-PT THINKING ABOUT QUIT TOBACCO USE [facility] [place] [facility] Jan 31, 2017 09:51 AM QUIT TOBACCO USE IN PAST YEAR 31 days [facility] [place] [facility] Jan 26, 2016 08:36 AM CURRENT SMOKER [facility] [place] [facility] Jan 26, 2016 08:36 AM V1-PT DECLINES REF TO TOBACCO CESS PRGM [facility] [place] [facility] Jan 26, 2016 08:36 AM V1-PT DECLINES TOBACCO CESSATION MEDS [facility] [place] [facility] Jan 26, 2016 08:36 AM V1-PT THINKING ABOUT QUIT TOBACCO USE [facility] [place] [facility] Feb 20, 2015 10:25 AM QUIT TOBACCO USE IN PAST YEAR [facility] [place] [facility] June 17, 2014 07:37 AM CURRENT SMOKER Reports being an off and on smoker -cigarettes [facility] [place] [facility] June 17, 2014 07:37 AM V1-PT DECLINES REF TO TOBACCO CESS [facility] [place] [facility] June 17, 2014 07:37 AM V1-PT DECLINES TOBACCO CESSATION MEDS [facility] [place] [facility] June 17, 2014 07:37 AM V1-PT THINKING ABOUT QUIT TOBACCO USE [facility] [place] [facility] Sep 14, 2011 09:51 AM CURRENT SMOKER less than a pack a day [facility] [place] [facility] Sep 14, 2011 09:51 AM V1-PT DECLINES REF TO TOBACCO CESS [facility] [place] [facility] Sep 14, 2011 09:51 AM V1-PT DECLINES TOBACCO CESSATION MEDS [facility] [place] [facility] Sep 14, 2011 09:51 AM V1-PT THINKING ABOUT QUIT TOBACCO USE [facility] [place] [facility] Mar 09, 2010 09:32 AM CURRENT SMOKER 1 ppd [facility] [place] [facility] Mar 09, 2010 09:32 AM V1-PT DECLINES TOBACCO CESSATION MEDS [facility] [place] [facility] Mar 09, 2010 09:32 AM V1-PT REF TO NON-VA TOBACCO CESS PRGM [facility] [place] [facility] Mar 09, 2010 09:32 AM V1-PT THINKING ABOUT QUIT TOBACCO USE [facility] [place] [facility] Sep 29, 2009 02:07 PM V1-PT DECLINES REF TO TOBACCO CESS [facility] Sep 29, 2009 02:07 PM V1-PT DECLINES TOBACCO CESSATION MEDS [facility] Sep 29, 2009 02:07 PM V1-PT NOT INTERESTED IN QUIT [facility] Jan 29, 2009 11:00 AM CURRENT SMOKER 1 ppd [facility] Jan 29, 2009 11:00 AM V1-PT DECLINES TOBACCO CESSATION MEDS [facility] Jan 29, 2009 11:00 AM V1-PT READY TO QUIT [facility]BACCO [facility] Mar 17, 2005 08:36 AM CURRENT SMOKER [facility] Advance Directives: All historical and current Section [...] 11, 2023 ADVANCE DIRECTIVE JACOB DEL TORO [facility] Encounter Notes: All associated encounter notes This section contains the clinical notes associated to the Encounter. Date/Time Encounter Note(s) Provider Source Mar 20, 2024 09:55 AM OPTOMETRY NOTE: LOCAL TITLE: OPTOMETRY NOTE STANDARD TITLE: OPTOMETRY NOTE DATE OF NOTE: MAR 20, 2024@09:55 ENTRY DATE: MAR 20, 2024@09:55:34 AUTHOR: ADONIS CAMARA COSIGNER: URGENCY: STATUS: COMPLETED I saw this patient in conjunction with the student and agree with the stated findings and plan as noted below after reviewing both the history and repeating pitts elements of the physical exam now. Patient last seen here in March 01, 2023 returns today for comprehensive eye examination not voicing any interval visual or ocular changes. He reports his sister recently told him that she has narrow angle glaucoma as did their mother. He also thinks that possibly one of his brothers may have narrow angle glaucoma as well. He has been followed here as bilateral low risk open-angle glaucoma suspect with early cataracts, dry eye disease and benign choroidal nevus left eye. 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 Bilateral nuclear sclerotic and cortical cataracts functioning well visually at present. Update glasses today. Stable benign choroidal nevus left eye without high risk characteristics. Bilateral low risk of open-angle glaucoma suspect also considered open angle with borderline findings, low risk with stable physical examination today. Previously obtained pachymetry is somewhat thinner than average but without evidence of pseudoexfoliation or pigment dispersion. Larger asymmetric disc size right greater than left eye with corresponding asymmetric cupping right greater than left eye but with healthy disc appearance with good color and intact rim tissue without splinter hemorrhage or notching. Anterior chamber depth appears deep each eye despite positive family history of narrow angle glaucoma and moderate to high hyperopic refractive error. Repeat optic nerve OCT and anterior chamber OCT obtained now. Optic nerve OCT shows robust retinal nerve fiber layer thickness each eye without glaucomatous loss or defect. Large disc size with corresponding large cupping. Anterior segment OCT shows angle structures open to at least 20 degrees nasal and temporal each eye do not appear occluded will at present based on both physical examination and anterior segment OCT. Will continue to monitor with repeat exam and repeat imaging. Reviewed in detail with patient difference between open-angle glaucoma and anatomically narrow angle glaucoma and how some patients can develop both. Reviewed signs and symptoms of acute angle-closure glaucoma as well. Plan: Patient education as noted above reviewed exam findings now. He understands his personal risk for glaucoma remains low at present but we will continue to monitor on an annual basis with repeat exam and repeat imaging. Order new glasses today. Return in 12 months or sooner if need be. Ophthalmic medication reconciliation: He is currently not taking or prescribed any ocular medications. Total time spent reviewing previous records, examining and counseling patient as well as entering orders 35 minutes -3 minutes for refraction equals 32 minutes. /natalie/ Adonis Camara OD CHIEF OF OPTOMETRY Signed: 03/21/2024 07:09 ADONIS CAMARA [facility] [place] [facility] Mar 20, 2024 07:34 AM OPTOMETRY NOTE: LOCAL TITLE: OPTOMETRY NOTE STANDARD TITLE: OPTOMETRY NOTE DATE OF NOTE: MAR 20, 2024@07:34 ENTRY DATE: MAR 20, 2024@07:34:27 AUTHOR: IVANA HOLT EXP COSIGNER: ADONIS CAMARA URGENCY: STATUS: COMPLETED Active problems - Computerized Problem List is the source for the followin. Centriacinar emphysema 2. Impaired fasting glucose 3. Benign prostatic hyperplasia 4. Obesity 5. Open Angle Glaucoma Suspect 6. Erectile dysfunction (SNOMED CT 473475363) 7. Elevated Prostate Specific Antigen (PSA) 8. Impacted cerumen * 9. Depressive Disorder NEC 10. Nicotine dependence (SNOMED CT 93920226) 11. Hemochromatosis (SNOMED CT 121401573) Active Outpatient Medications (including Supplies): Active Outpatient Medications Status = 1) ALBUTEROL 90MCG (CFC-F) 200D ORAL INHL INHALE 2 PUFFS BY ACTIVE MOUTH FOUR TIMES DAILY NEEDED FOR BREATHING 2) FINASTERIDE 5MG TAB TAKE ONE TABLET BY MOUTH ONCE DAILY FOR ACTIVE PROSTATE 3) FLUTICAS 250/SALMETEROL 50 INHL DISK 60 INHALE 1 PUFF BY ACTIVE MOUTH TWICE DAILY FOR BREATHING - RINSE MOUTH AFTER USE 4) LIDOCAINE 5% PATCH APPLY 1 PATCH TOPICALLY ONCE DAILY ACTIVE (LEAVE PATCH ON FOR 12 HOURS, THEN REMOVE PATCH) Indication: FOR NERVE PAIN 5) TAMSULOSIN HCL 0.4MG CAP TAKE ONE CAPSULE BY MOUTH AT ACTIVE BEDTIME 6) TIOTROPIUM 2.5MCG/ACTUAT 60D ORAL INHL INHALE 2 PUFFS BY ACTIVE MOUTH ONCE DAILY Allergies: CHANTIX All medications including those prescribed by outside VA's, community providers, and all OTC meds were reviewed and reconciled with patient to the best of their abilities. This 73 year old MALE is seen today for comprehensive eye exam DEVYN: MAR 01 2023 Chief Complaint: Pt here for routine eye exam, reports no changes in vision. his sister states that she just diagnoses with narrow angle glaucoma. reports poor compliance with refresh PFAT but states it does help in the morning. pt is very sensitive to anything near his eyes OHx: 1. Low risk suspect for open angle glaucoma OU secondary to large ONH cupping 2. Benign choroidal nevus OS 3. ROSIO OU 4. RE and presbyopia OU (-) Pain: (-) HEREDIA: (-) Diplopia: (-) Flashes: (-) Floaters: (-) Amaurosis Fugax/Tia's: (-) Eye Injury: (-) Eye Surgery: (-) TBI FOHx: (+) Narrow angle glaucoma: mother and sister (-) Smoker/Length of Time/PPD: 1-2 a day, in the process of quitting. VITALS (most recent, as listed in the electronic record): B/P: 138/70 (11/11/2023 12:06) Pulse: 107 (11/11/2023 09:02) Temperature: 98.7 F [37.1 C] (11/11/2023 09:02) Weight: 265 lb [120.20 kg] (11/11/2023 09:02) Height: 71 in [180.3 cm] (06/17/2014 07:32) BMI: BMI: 37.0 PERTINENT LABS: HEMOGLOBIN A1C TREND Collection DT Spec HGBA1c 11/19/2021 09:20 BLOOD 5.8 H 08/30/2019 08:33 BLOOD 6.0 H 10/18/2018 07:32 BLOOD 6.1 H 08/01/2017 08:34 BLOOD 5.9 H 07/01/2010 10:33 BLOOD 6.2 H (-) Smoker/Length of Time/PPD: Current Rx with last BCVA: OD: +3.00 -0.50 x 105 20/20 OS: +4.50 -1.00 x085 20/20-1 Add: +2.50 DVA ( )sc (X)cc - phoropter OD: 20/20 OS: 20/25 Pupils: PERRL (-)APD EOMs: SAFE OU, (-)Pain/Diplopia CVF (facial, peripheral): FTFC OU Subjective Refraction: OD: +3.25 -0.75 x 100 20/20 OS: +4.25 -1.00 x 080 20/20 Add: +2.50 All the above performed by student, reviewed by attending Anterior segment: Performed by student, repeated by attending Lids: dermatochalasis, MGD OU Conj: hyperimia +2 OU Sclera: white OU Cornea: clear OU AC: 3x3 OU deep & quiet OU Iris: flat and clear OU Lens: NS +1 and trace ACC in periphery OU (-)PXF OU Tonometry: Performed by student, reviewed by attending [ ] GAT [X] iCare [] Pina OD 09 mmHg OS 09 mmHg Time: 9:19am Previous IOP (FEB 2023) OD 19 mmHg OS 19 mmHg Time: 9:55 am Pachymetry OD: 534 OS: 540 Fundus exam: Dilated: XXXX 9:22am Non dilated: Dilating Drops: 1GTT 1 % Tropicamide OU & 1GTT 2.5% Phenylephrine OU (Pt. ed. on side effects, dilation [...] Vit: clear OU C/D: 0.65/0.65 OD, 0.60/0.60 OS; (+)PPA OS (-)brennen chapman Macula: flat and clear OU Tr ERM OD PPole: clear A/V: 2/3 OU Vessels: normal caliber OU Periph: flat and intact OU benign choridal nevus in superior quadrant OS (-) elevation and orange pigment (-) holes/tears/detachments 360 OU Assessment/Plan: 1. Low risk open-angle glaucoma suspect OU. Moderate cupping with thinner than average CCT. No evidence of pigment dispersion or pseudoexfoliation OU. risk factors (+) family hx and cuppnng . No change in ONH appearance. Low index of suspicion at present. Longstanding stability. - IOP today: 09mmHg/09 mmHg - Pachymetry: 534/540 - Imaging taken today: ONH OCT and Ant Seg OCT - Pt ed re today's findings - Stress importance of continued follow-up appointments - RTC 1 year with DFE 2. Combined Form Cataracts OU - Pt. ed. on findings - cataracts are not visually significant and that surgery is not necessary at this time - Ed. on importance of UV protection and on symptoms of glare - Monitor yearly 3. Hyperopia OU and presbyopia OU - Pt. ed. on todays findings - Ordering duplicate frames for (PAL- Clear and Sun) - Monitor Return to Clinic 1 year or earlier PRN Patient Education: Glaucoma: Patient was educated regarding glaucoma/glaucoma suspect as well as the natural history of this diagnosis including prognosis. Stress importance of compliance and persistency with glaucoma medication when prescribed, timely follow up as well as the role of ancillary testing. Exclusion criteria for ancillary testing include significantly reduced acuity, mental status changes affecting the patient's ability to attend to the test or other physical limitations that would prohibit the patient's ability to participate in testing. /natalie/ JOCELYN HOLT OPTOMETRY STUDENT Signed: 03/20/2024 12:11 /natalie/ Adonis Camara OD CHIEF OF OPTOMETRY Cosigned: 03/21/2024 07:16 ORAL HOLT [facility]
--- OUTSIDE RECORDS SUMMARY | 2024-04-11 13:12 | XMS_ITS | Continuity of Care Document ---
Author Name DOD-OR Organization DOD-OR Care Team Providers Care Tattoo Technician Name Role Phone DOD-OR Unavailable Unavailable Problems Combined list of problems from Department of Defense and Veterans Affairs facilities. It does not include entries that were removed or entered in error. Problem Status Onset Date Problem Type Date of Resolution Comments Source Hemochromatosis (SNOMED CT 450393851) Active 02/14/18 96 Condition Nov 11, 2023 Entered By: PRINCESS RAMON Comment: keep HCT <16, ferritin <200. [place] [facility] [place] to every other month, 450cc [facility] Benign prostatic hyperplasia Active Condition [facility] Centriacinar emphysema Active Condition [facility] Depressive Disorder NEC (ICD-9-CM 311.) Active Condition [facility] Elevated Prostate Specific Antigen (PSA) (ICD-9-CM 790.93) Active Condition [facility] Erectile dysfunction (SNOMED CT 541282802) Active Condition [facility] Hemochromatosis Active Condition [facility] Impacted cerumen * (ICD-9-CM 380.4) Active Condition [facility] Impaired fasting glucose Active Condition [facility] Nicotine dependence (SNOMED CT 70275473) Active Condition [facility] [...] findings, low risk, bilateral Active Diagnosis [facility] Diagnosis: ICD-10-CM 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 [facility] [...] [facility] Diagnosis: ICD-10-CM R91.8 Other nonspecific abnormal finding of lung field Active Diagnosis [facility] Medications Combined list of outpatient medications [...] G RESPIR ATORY (INHAL ATION) ACTIVE 11/25/2024 [id number] FURCOLO,T PATY 2023 3 [facility] ALBUTEROL 90MCG/ACTUA T (CFC-F) INHL,ORAL,8 .5GM DOSE COUNTER INHALE 2 PUFFS BY MOUTH FOUR TIMES DAILY NEEDED FOR BREATHIN G RESPIR ATORY (INHAL ATION) DISCONT INUED 08/16/2024 [id number] 4 FURCOLO,T PATY 2023 1 [facility] ALBUTEROL 90MCG/ACTUA T (CFC-F) INHL,ORAL,8 .5GM DOSE COUNTER INHALE 2 PUFFS BY MOUTH FOUR TIMES DAILY NEEDED FOR BREATHIN G RESPIR ATORY (INHAL ATION) DISCONT INUED 07/06/2023 [id number] 4 [facility] 1 [facility] CARBOXYMETH YLCELLULOSE NA 0.5% SOLN,OPH INSTILL 1 DROP INTO EACH EYE FOUR TIMES DAILY NEEDED FOR DRY EYE OPHTHA LMIC 03/01/2024 [id number] Jas CAMARA ICHELE 2023 45 [facility] FINASTERIDE 5MG TAB TAKE ONE TABLET BY MOUTH ONCE DAILY FOR PROSTATE ORAL ACTIVE 02/13/2025 [id number] 4 FURCOLO,T PATY 2023 90 [facility] FINASTERIDE 5MG TAB TAKE ONE TABLET BY MOUTH ONCE DAILY FOR PROSTATE ORAL DISCONT INUED 01/13/2024 [id number] 4 [facility] 2022 90 [facility] FLUTICASONE 250MCG/SALM ETEROL 50MCG INHL,ORAL,D ISKUS,60 INHALE 1 PUFF BY MOUTH TWICE DAILY FOR BREATHIN G - RINSE MOUTH AFTER USE RESPIR ATORY (INHAL ATION) ACTIVE 08/16/2024 [id number] 5 FURCOLO,T PATY 2023 1 [facility] FLUTICASONE 250MCG/SALM ETEROL 50MCG INHL,ORAL,D ISKUS,60 INHALE 1 PUFF BY MOUTH TWICE DAILY FOR BREATHIN G - RINSE MOUTH AFTER USE RESPIR ATORY (INHAL ATION) DISCONT INUED 01/13/2024 [id number] 4 [facility] [place] 2022 1 [facility] LIDOCAINE 5% PATCH APPLY 1 PATCH TOPICALL Y ONCE DAILY FOR NERVE PAIN (LEAVE PATCH ON FOR 12 HOURS, THEN REMOVE PATCH) TOPICA L ACTIVE 11/11/2024 [id number] FURCOLO,T PATY 2023 [facility] TAMSULOSIN HCL 0.4MG CAP TAKE ONE CAPSULE BY MOUTH AT BEDTIME ORAL ACTIVE 08/16/2024 [id number] 4 FURCOLO,T PATY 2023 90 [facility] TAMSULOSIN HCL 0.4MG CAP TAKE ONE CAPSULE BY MOUTH AT BEDTIME ORAL DISCONT INUED 01/13/2024 [id number] 4 [facility]Z [facility] 2022 [facility] THEOPHYLLIN E 400MG 24HR TAB,SA TAKE ONE TABLET BY MOUTH ONCE DAILY ORAL DISCONT INUED BY PROVIDE R 04/06/2024 [id number] [place] MIGUEL BARBARA 2023 30 [facility] TIOTROPIUM 2.5MCG/ACTU AT INHL,ORAL,6 0D,4GM INHALE 2 PUFFS BY MOUTH ONCE DAILY RESPIR ATORY (INHAL ATION) ACTIVE 08/16/2024 [id number] 5 FURCOLO,T PATY 2023 1 [facility] TIOTROPIUM 2.5MCG/ACTU AT INHL,ORAL,6 0D,4GM INHALE 2 PUFFS BY MOUTH ONCE DAILY RESPIR ATORY (INHAL ATION) DISCONT INUED 01/13/2024 [id number] 4 DK CRUZ JAWED 2022 1 [facility] Allergies, Adverse Reactions, Alerts Combined list of allergies from Department of Defense and Veterans Affairs facilities. It does not include entries that were removed or entered in error. Substance Category Reaction Severity Reaction type Status Date Reported Comments Source CHANTIX Propensity to adverse reactions to drug (finding) Anxiety active 0 [facility] [place] [facility] Immunizations Combined list of available immunizations from the Department of Defense and Veterans Affairs facilities. Immunization Series Date Given Administered By Site Reaction Lot Number CVX Code Drug Automatic Fabric Cutter Status Comments Source INFLUENZA, HIGH-DOSE, QUADRIVALENT 2022 PELON ESPINOSA LEFT DELTO ID [id number] 197 complet ed [facility] INFLUENZA VACCINE, QUADRIVALENT, ADJUVANTED 2021 205 complet ed [facility] ZOSTER RECOMBINANT 2 2021 187 complet ed [facility] COVID-19 (MODERNA), MRNA, LNP-S, PF, 100 MCG OR 50 MCG DOSE 3 2020 207 complet ed MOD; [id number]; 2 [facility] [...] DOSE 2 2020 207 complet ed MOD; [id number]; 1 [facility] COVID-19 (MODERNA), MRNA, LNP-S, PF, 100 MCG/0.5 ML DOSE 1 2020 207 complet ed MOD; [id number]; 1 [facility] INFLUENZA, UNSPECIFIED FORMULATION 2019 88 complet ed [facility] PNEUMOCOCCAL CONJUGATE PCV 13 2014 133 complet ed [facility] ZOSTER (SHINGLES) (HISTORICAL) 2014 121 complet ed Proximal Left [facility] [place] [facility] [facility] DTAP, UNSPECIFIED FORMULATION 2010 107 complet ed Site: Left Deltoid [facility] PNEUMOCOCCAL, UNSPECIFIED FORMULATION 2005 KEITH CESAR 109 complet ed [facility] Results Combined list of recent chemistry, hematology and other laboratory results from Department of Defense and Veterans Affairs, ranging from 15 months to all on record, depending upon the facility. Order Name Results Value Reference Range Date Interpretation Specimen Comments Source IRON & TIBC PANEL IRON BINDING CAPACITY [MASS/VOLUM E] IN SERUM OR PLASMA 268 ug/dL 204 - 475 11/02 Specimen Type: SERUM No comment entered. Ordering Provider: RADHA RAMON Report Released Date/Time: Nov 01, 2023 12:47 PM Reporting Lab: [facility] [place] [address] [address] [facility]: [facility] [place] [facility] [address] [address] [facility] [facility] IRON & TIBC PANEL IRON [MASS/VOLUM E] IN SERUM OR PLASMA 195 ug/dL 40 - 160 11/02 H Specimen Type: SERUM No comment entered. Ordering Provider: RADHA RAMON Report Released Date/Time: Nov 01, 2023 12:47 PM Reporting Lab: [facility] [place] [facility] [address] [address] Performing Lab: [facility] [place] [facility] [address] [address] [facility] [place] [facility] IRON & TIBC PANEL IRON/IRON BINDING CAPACITY.TO KEVIN [MASS RATIO] IN SERUM OR PLASMA 72.8 20.0 - 50.0 11/02 H Specimen Type: SERUM No comment entered. Ordering Provider: RADHA RAMON Report Released Date/Time: Nov 01, 2023 12:47 PM Reporting Lab: [facility] [place] [facility] [address] [address] Per[facility]: [facility] [place] [address] [address] [facility] [place] [facility] IRON & TIBC PANEL TRANSFERRIN [MASS/VOLUM E] IN SERUM OR PLASMA 203 mg/dL 200 - 360 11/02 Specimen Type: SERUM No comment entered. Ordering Provider: RADHA RAMON Report Released Date/Time: Nov 01, 2023 12:47 PM Reporting Lab: [facility] [place] [facility] [address] [address] Performing Lab: [facility] [place] [facility] [address] [address] [facility] [place] [facility] FERRITIN FERRITIN [MASS/VOLUM E] IN SERUM OR PLASMA 144 ng/mL 20 - 300 11/02 Specimen Type: SERUM No comment entered. Ordering Provider: RADHA RAMON Report Released Date/Time: Nov 01, 2023 12:47 PM Reporting Lab: [facility] [place] [facility] [address] [address] Performing Lab: [facility] [place] [facility] [address] [address] [facility] [place] [facility] LIVER FUNCTION PROTEIN [MASS/VOLUM E] IN SERUM OR PLASMA 6.4 g/dL 6.0 - 8.3 11/02 Specimen Type: SERUM No comment entered. Ordering Provider: RADHA RAMON Report Released Date/Time: Nov 01, 2023 12:47 PM Reporting Lab: [facility] [place] [facility] [address] [address] Performing Lab: [facility] [place] [facility] [address] [address] [facility] [place] [facility] LIVER FUNCTION ALBUMIN [MASS/VOLUM E] IN SERUM OR PLASMA 4.1 g/dL 3.5 - 5.0 11/02 Specimen Type: SERUM No comment entered. Ordering Provider: RADHA RAMON Report Released Date/Time: Nov 01, 2023 12:47 PM Reporting Lab: [facility] [place] [address] [address] Performing Lab: [facility] [place] [address] [address] [facility] [place] [facility] LIVER FUNCTION ALKALINE PHOSPHATASE [ENZYMATIC ACTIVITY/VO LUME] IN SERUM OR PLASMA 75 U/L 40 - 150 11/02 Specimen Type: SERUM No comment entered. Ordering Provider: RADHA RAMON Report Released Date/Time: Nov 01, 2023 12:47 PM Reporting Lab: [facility] [place] [facility] [address] [address] Performing Lab: [facility] [place] [facility] [address] [address] [facility] [place] [facility] LIVER FUNCTION ASPARTATE AMINOTRANSF ERASE [ENZYMATIC ACTIVITY/VO LUME] IN SERUM OR PLASMA 22 U/L 5 - 34 11/02 Specimen Type: SERUM No comment entered. Ordering Provider: RADHA RAMON Report Released Date/Time: Nov 01, 2023 12:47 PM Reporting Lab: [facility] [place] [facility] [address] [address] Performing Lab: [facility] [place] [facility] [address] [address] [facility] [place] [facility] LIVER FUNCTION ALANINE AMINOTRANSF ERASE [ENZYMATIC ACTIVITY/VO LUME] IN SERUM OR PLASMA 35 U/L 11/02 Specimen Type: SERUM No comment entered. Ordering Provider: RADHA RAMON Report Released Date/Time: Nov 01, 2023 12:47 PM Reporting Lab: [facility] [place] [facility] [address] [address] Performing Lab: [facility] [place] [facility] [address] [address] [facility] [place] [facility] LIVER FUNCTION BILIRUBIN.T OTAL [MASS/VOLUM E] IN SERUM OR PLASMA 0.6 mg/dL 0.2 - 1.2 11/02 Specimen Type: SERUM No comment entered. Ordering Provider: RADHA RAMON Report Released Date/Time: Nov 01, 2023 12:47 PM Reporting Lab: [facility] [place] [facility] [address] [address] Performing Lab: [facility] [place] [facility] [address] [address] [facility] [place] [facility] CBC LEUKOCYTES [#/VOLUME] IN BLOOD BY AUTOMATED COUNT 7.31 10*3/u L 4.50 - 11.00 11/02 Specimen Type: BLOOD No comment entered. Ordering Provider: RADHA RAMON Report Released Date/Time: Nov 01, 2023 12:47 PM Reporting Lab: [facility] [place] [facility] [address] [address] Performing Lab: [facility] [place] [facility] [address] [address] [facility] [place] [facility] CBC ERYTHROCYTE S [#/VOLUME] IN BLOOD BY AUTOMATED COUNT 5.14 10*6/u L 4.23 - 5.66 11/02 Specimen Type: BLOOD No comment entered. Ordering Provider: RADHA RAMON Report Released Date/Time: Nov 01, 2023 12:47 PM Reporting Lab: [facility] [place] [facility] [address] [address] Performing Lab: [facility] [place] [facility] [address] [address] [facility] [place] [facility] CBC HEMOGLOBIN [MASS/VOLUM E] IN BLOOD 16.5 g/dL 12.8 - 17 11/02 Specimen Type: BLOOD No comment entered. Ordering Provider: RADHA RAMON Report Released Date/Time: Nov 01, 2023 12:47 PM Reporting Lab: [facility] [place] [facility] [address] [address] Performing Lab: [facility] [place] [facility] [address] [address] [facility] [place] [facility] CBC HEMATOCRIT [VOLUME FRACTION] OF BLOOD BY AUTOMATED COUNT 49.0 39.2 - 50.4 11/02 Specimen Type: BLOOD No comment entered. Ordering Provider: RADHA RAMON Report Released Date/Time: Nov 01, 2023 12:47 PM Reporting Lab: [facility] [place] [facility] [address] [address] Performing Lab: [facility] [place] [facility] [address] [address] [facility] [place] [facility] CBC MCV [ENTITIC VOLUME] BY AUTOMATED COUNT 95.3 fL 82 - 99 11/02 Specimen Type: BLOOD No comment entered. Ordering Provider: RADHA RAMON Report Released Date/Time: Nov 01, 2023 12:47 PM Reporting Lab: [facility] [place] [facility] [address] [address] Performing Lab: [facility] [place] [facility] [address] [address] [facility] [place] [facility] CBC MCHC [MASS/VOLUM E] BY AUTOMATED COUNT 33.7 g/dL 30.8 - 35.1 11/02 Specimen Type: BLOOD No comment entered. Ordering Provider: RADHA RAMON Report Released Date/Time: Nov 01, 2023 12:47 PM Reporting Lab: [facility] [place] [facility] [address] [address] Performing Lab: [facility] [place] [facility] [address] [address] [facility] [place] [facility] CBC PLATELETS [#/VOLUME] IN BLOOD BY AUTOMATED COUNT 182 10*3/u L 140 - 360 11/02 Specimen Type: BLOOD No comment entered. Ordering Provider: RADHA RAMON Report Released Date/Time: Nov 01, 2023 12:47 PM Reporting Lab: [facility] [place] [facility] [address] [address] Performing Lab: [facility] [place] [facility] [address] [address] [facility] [place] [facility] CBC ERYTHROCYTE DISTRIBUTIO N WIDTH [RATIO] BY AUTOMATED COUNT 12.3 12.0 - 16.0 11/02 Specimen Type: BLOOD No comment entered. Ordering Provider: RADHA RAMON Report Released Date/Time: Nov 01, 2023 12:47 PM Reporting Lab: [facility] [place] [facility] [address] [address] Performing Lab: [facility] [place] [facility] [address] [address] [facility] [place] [facility] CBC MCH [ENTITIC MASS] BY AUTOMATED COUNT 32.1 pg 26.2 - 32.6 11/02 Specimen Type: BLOOD No comment entered. Ordering Provider: RADHA RAMON Report Released Date/Time: Nov 01, 2023 12:47 PM Reporting Lab: [facility] [place] [facility] [address] [address] Performing Lab: [facility] [place] [facility] [address] [address] [facility] [place] [facility] FERRITIN FERRITIN [MASS/VOLUM E] IN SERUM OR PLASMA 205 ng/mL 20 - 300 01/04 Specimen Type: SERUM No comment entered. Ordering Provider: MAGUE CRUZ Report Released Date/Time: July 05, 2022 10:31 AM Reporting Lab: [facility] [place] [facility] [address] [address] Performing Lab: [facility] [place] [facility] [address] [address] [facility] [place] [facility] BASIC METABOLIC PANEL (fasting) UREA NITROGEN [MASS/VOLUM E] IN SERUM OR PLASMA 14 mg/dL 7 - 25 01/04 Specimen Type: SERUM No comment entered. Ordering Provider: MAGUE CRUZ Report Released Date/Time: July 05, 2022 10:31 AM Reporting Lab: [facility] [place] [facility] [address] [address] Performing Lab: [facility] [place] [facility] [address] [address] [facility] [place] [facility] BASIC METABOLIC PANEL (fasting) GLUCOSE [MASS/VOLUM E] IN SERUM OR PLASMA 108 mg/dL 65 - 100 01/04 H Specimen Type: SERUM No comment entered. Ordering Provider: MAGUE CRUZ Report Released Date/Time: July 05, 2022 10:31 AM Reporting Lab: [facility] [place] [facility] [address] [address] Performing Lab: [facility] [place] [facility] [address] [address] [facility] [place] [facility] BASIC METABOLIC PANEL (fasting) SODIUM [MOLES/VOLU ME] IN SERUM OR PLASMA 142 mmol/L 135 - 145 01/04 Specimen Type: SERUM No comment entered. Ordering Provider: MAGUE CRUZ Report Released Date/Time: July 05, 2022 10:31 AM Reporting Lab: [facility] [place] [facility] [address] [address] Performing Lab: [facility] [place] [facility] [address] [address] [facility] [place] [facility] BASIC METABOLIC PANEL (fasting) POTASSIUM [MOLES/VOLU ME] IN SERUM OR PLASMA 4.3 mmol/L 3.5 - 5.0 01/04 Specimen Type: SERUM No comment entered. Ordering Provider: MAGUE CRUZ Report Released Date/Time: July 05, 2022 10:31 AM Reporting Lab: [facility] [place] [facility] [address] [address] Performing Lab: [facility] [place] [facility] [address] [address] [facility] [place] [facility] BASIC METABOLIC PANEL (fasting) CHLORIDE [MOLES/VOLU ME] IN SERUM OR PLASMA 103 mmol/L 100 - 110 01/04 Specimen Type: SERUM No comment entered. Ordering Provider: MAGUE CRUZ Report Released Date/Time: July 05, 2022 10:31 AM Reporting Lab: [facility] [place] [facility] [address] [address] Performing Lab: [facility] [place] [facility] [address] [address] [facility] [place] [facility] BASIC METABOLIC PANEL (fasting) CARBON DIOXIDE, TOTAL [MOLES/VOLU ME] IN SERUM OR PLASMA 31 meq/L 20 - 30 01/04 H Specimen Type: SERUM No comment entered. Ordering Provider: MAGUE CRUZ Report Released Date/Time: July 05, 2022 10:31 AM Reporting Lab: [facility] [place] [facility] [address] [address] Performing Lab: [facility] [place] [facility] [address] [address] [facility] [place] [facility] BASIC METABOLIC PANEL (fasting) CREATININE [MASS/VOLUM E] IN SERUM OR PLASMA 0.95 mg/dL 0.50 - 1.40 01/04 Specimen Type: SERUM No comment entered. Ordering Provider: MAGUE CRUZ Report Released Date/Time: July 05, 2022 10:31 AM Reporting Lab: [facility] [place] [address] [address] Performing Lab: [facility] [place] [address] [address] [facility] [place] [facility] BASIC METABOLIC PANEL (fasting) GLOMERULAR FILTRATION RATE/1.73 SQ M.PREDICTED [VOLUME RATE/AREA] IN SERUM, PLASMA OR BLOOD BY CREATININE- BASED FORMULA (CKD-EPI 2020) 84 mL/min 60 01/04 Specimen Type: SERUM No comment entered. Ordering Provider: MAGUE CRUZ Report Released Date/Time: July 05, 2022 10:31 AM Reporting Lab: [facility] [place] [address] [address] Performing Lab: [facility] [place] [facility] [address] [address] [facility] [place] [facility] LIVER FUNCTION PROTEIN [MASS/VOLUM E] IN SERUM OR PLASMA 6.4 g/dL 6.0 - 8.3 01/04 Specimen Type: SERUM No comment entered. Ordering Provider: MAGUE CRUZ Report Released Date/Time: July 05, 2022 10:31 AM Reporting Lab: [facility] [place] [address] [address] Performing Lab: [facility] [place] [facility] [address] [address] [facility] [place] [facility] LIVER FUNCTION ALBUMIN [MASS/VOLUM E] IN SERUM OR PLASMA 4.0 g/dL 3.5 - 5.0 01/04 Specimen Type: SERUM No comment entered. Ordering Provider: MAGUE CRUZ Report Released Date/Time: July 05, 2022 10:31 AM Reporting Lab: [facility] [place] [facility] [address] [address] Performing Lab: [facility] [place] [facility] [address] [address] [facility] [place] [facility] LIVER FUNCTION ALKALINE PHOSPHATASE [ENZYMATIC ACTIVITY/VO LUME] IN SERUM OR PLASMA 71 U/L 40 - 150 01/04 Specimen Type: SERUM No comment entered. Ordering Provider: MAGUE CRUZ Report Released Date/Time: July 05, 2022 10:31 AM Reporting Lab: [facility] [place] [facility] [address] [address] Performing Lab: [facility] [address] [facility] [id number] [facility] LIVER FUNCTION ASPARTATE AMINOTRANSF ERASE [ENZYMATIC ACTIVITY/VO LUME] IN SERUM OR PLASMA 22 U/L 5 - 34 01/04 Specimen Type: SERUM No comment entered. Ordering Provider: MAGUE CRUZ Report Released Date/Time: July 05, 2022 10:31 AM Reporting Lab: [facility] [address] [facility] [facility] [address] Performing Lab: [facility] [address] [facility] [address] [facility] LIVER FUNCTION ALANINE AMINOTRANSF ERASE [ENZYMATIC ACTIVITY/VO LUME] IN SERUM OR PLASMA 37 U/L 01/04 Specimen Type: SERUM No comment entered. Ordering Provider: MAGUE CRUZ Report Released Date/Time: July 05, 2022 10:31 AM Reporting Lab: [facility] [address] [facility] [facility] [phone] Performing Lab[facility] [place] [facility] [address] [facility] [facility] [phone] [facility] LIVER FUNCTION BILIRUBIN.T OTAL [MASS/VOLUM E] IN SERUM OR PLASMA 0.6 mg/dL 0.2 - 1.2 01/04 Specimen Type: SERUM No comment entered. Ordering Provider: MAGUE CRUZ Report Released Date/Time: July 05, 2022 10:31 AM Reporting Lab: [facility] [place] [facility] [address] [facility] [facility] [phone] Performing Lab: [facility] [place] [facility] [address] [address] [facility] [place] [facility] LIPID PANEL FASTING CHOLESTEROL [MASS/VOLUM E] IN SERUM OR PLASMA 169 mg/dL 01/04 Specimen Type: SERUM No comment entered. Ordering Provider: MAGUE CRUZ Report Released Date/Time: July 05, 2022 10:31 AM Reporting Lab: [facility] [place] [facility] [address] [address] Performing Lab: [facility] [place] [facility] [address] [address] [facility] [place] [facility] LIPID PANEL FASTING TRIGLYCERID E [MASS/VOLUM E] IN SERUM OR PLASMA 92 mg/dL 0 - 150 01/04 Specimen Type: SERUM No comment entered. Ordering Provider: MAGUE CRUZ Report Released Date/Time: July 05, 2022 10:31 AM Reporting Lab: [facility] [place] [facility] [address] [address] Performing Lab: [facility] [place] [facility] [address] [address] [facility] [place] [facility] LIPID PANEL FASTING CHOLESTEROL IN LDL [MASS/VOLUM E] IN SERUM OR PLASMA BY CALCULATION 105 mg/dL 0 - 129 01/04 Specimen Type: SERUM No comment entered. Ordering Provider: MAGUE CRUZ Report Released Date/Time: July 05, 2022 10:31 AM Reporting Lab: [facility] [place] [facility] [address] [address] Performing Lab: [facility] [place] [facility] [address] [address] [facility] [place] [facility] LIPID PANEL FASTING CHOLESTEROL .TOTAL/CHOL ESTEROL IN HDL [MASS RATIO] IN SERUM OR PLASMA 3.7 01/04 Specimen Type: SERUM No comment entered. Ordering Provider: MAGUE CRUZ Report Released Date/Time: July 05, 2022 10:31 AM Reporting Lab: [facility] [place] [facility] [address] [address] Performing Lab: [facility] [address] [address] [facility] LIPID PANEL FASTING CHOLESTEROL IN HDL [MASS/VOLUM E] IN SERUM OR PLASMA 46 mg/dL 40 - 60 01/04 Specimen Type: SERUM No comment entered. Ordering Provider: MAGUE CRUZ Report Released Date/Time: July 05, 2022 10:31 AM Reporting Lab: [facility] [place] [facility] [address] [address] Performing Lab: [facility] [address] [address] [facility] CBC AND DIFF (AUTO) LEUKOCYTES [#/VOLUME] IN BLOOD BY AUTOMATED COUNT 6.59 10*3/u L 4.50 - 11.00 01/04 Specimen Type: BLOOD No comment entered. Ordering Provider: MAGUE CRUZ Report Released Date/Time: July 05, 2022 10:31 AM Reporting Lab: [facility] [place] [place] [facility] [address] [address] Performing Lab: [facility] [place] [facility] [address] [address] [facility] CBC AND DIFF (AUTO) ERYTHROCYTE S [#/VOLUME] IN BLOOD BY AUTOMATED COUNT 5.31 10*6/u L 4.23 - 5.66 01/04 Specimen Type: BLOOD No comment entered. Ordering Provider: MAGUE CRUZ Report Released Date/Time: July 05, 2022 10:31 AM Reporting Lab: [facility] [place] [facility] [address] [address] Performing Lab: [facility] [place] [facility] [address] [address] [facility] CBC AND DIFF (AUTO) HEMOGLOBIN [MASS/VOLUM E] IN BLOOD 16.6 g/dL 12.8 - 17 01/04 Specimen Type: BLOOD No comment entered. Ordering Provider: MAGUE CRUZ Report Released Date/Time: July 05, 2022 10:31 AM Reporting Lab: [facility] [place] [facility] [address] [address] Performing Lab: [facility] [place] [facility] [address] [address] [facility] CBC AND DIFF (AUTO) HEMATOCRIT [VOLUME FRACTION] OF BLOOD BY AUTOMATED COUNT 50.5 39.2 - 50.4 01/04 H Specimen Type: BLOOD No comment entered. Ordering Provider: MAGUE RCUZ Report Released Date/Time: July 05, 2022 10:31 AM Reporting Lab: [facility] [place] [facility] [address] [address] Performing Lab: [facility] [place] [facility] [address] [address] [facility] [place] CBC AND DIFF (AUTO) MCV [ENTITIC VOLUME] BY AUTOMATED COUNT 95.1 fL 82 - 99 01/04 Specimen Type: BLOOD No comment entered. Ordering Provider: MAGUE CRUZ Report Released Date/Time: July 05, 2022 10:31 AM Reporting Lab: [facility] [place] [facility] [address] [address] Performing Lab: [facility] [place] [facility] [address] [address] [facility] CBC AND DIFF (AUTO) MCHC [MASS/VOLUM E] BY AUTOMATED COUNT 32.9 g/dL 30.8 - 35.1 01/04 Specimen Type: BLOOD No comment entered. Ordering Provider: MAGUE CRUZ Report Released Date/Time: July 05, 2022 10:31 AM Reporting Lab: [facility] [place] [facility] [address] [address] Performing Lab: [facility] [place] [facility] [address] [address] [facility] [place] CBC AND DIFF (AUTO) PLATELETS [#/VOLUME] IN BLOOD BY AUTOMATED COUNT 173 10*3/u L 140 - 360 01/04 Specimen Type: BLOOD No comment entered. Ordering Provider: MAGUE CRUZ Report Released Date/Time: July 05, 2022 10:31 AM Reporting Lab: [facility] [place] [address] [address] Performing Lab: [facility] [place] [facility] [address] [address] [facility] [place] [facility] CBC AND DIFF (AUTO) ERYTHROCYTE DISTRIBUTIO N WIDTH [RATIO] BY AUTOMATED COUNT 12.3 12.0 - 16.0 01/04 Specimen Type: BLOOD No comment entered. Ordering Provider: MAGUE CRUZ Report Released Date/Time: July 05, 2022 10:31 AM Reporting Lab: [facility] [place] [facility] [address] [address] Performing Lab: [facility] [place] [facility] [address] [address] [facility] [place] CBC AND DIFF (AUTO) MONOCYTES [#/VOLUME] IN BLOOD BY AUTOMATED COUNT 0.55 10*3/u L 0.30 - 1.10 01/04 Specimen Type: BLOOD No comment entered. Ordering Provider: MAGUE CRUZ Report Released Date/Time: July 05, 2022 10:31 AM Reporting Lab: [facility] [place] [facility] [address] [address] Performing Lab: [facility] [place] [facility] [address] [address] [facility] [place] CBC AND DIFF (AUTO) MCH [ENTITIC MASS] BY AUTOMATED COUNT 31.3 pg 26.2 - 32.6 01/04 Specimen Type: BLOOD No comment entered. Ordering Provider: MAGUE CRUZ Report Released Date/Time: July 05, 2022 10:31 AM Reporting Lab: [facility] [place] [facility] [address] [address] Performing Lab: [facility] [place] [facility] [address] [address] [facility] [place] CBC AND DIFF (AUTO) NEUTROPHILS /100 LEUKOCYTES IN BLOOD BY AUTOMATED COUNT 63.8 43.7 - 75.8 01/04 Specimen Type: BLOOD No comment entered. Ordering Provider: MAGUE CRUZ Report Released Date/Time: July 05, 2022 10:31 AM Reporting Lab: [facility] [place] [facility] [address] [address] Performing Lab: [facility] [place] [facility] [address] [address] [facility] [place] [facility] CBC AND DIFF (AUTO) LYMPHOCYTES /100 LEUKOCYTES IN BLOOD BY AUTOMATED COUNT 25.6 14.0 - 42.3 01/04 Specimen Type: BLOOD No comment entered. Ordering Provider: MAGUE CRUZ Report Released Date/Time: July 05, 2022 10:31 AM Reporting Lab: [facility] [place] [facility] [address] [address] Performing Lab: [facility] [place] [facility] [address] [address] [facility] [place] CBC AND DIFF (AUTO) MONOCYTES/1 00 LEUKOCYTES IN BLOOD BY AUTOMATED COUNT 8.3 5.1 - 13.7 01/04 Specimen Type: BLOOD No comment entered. Ordering Provider: MAGUE CRUZ Report Released Date/Time: July 05, 2022 10:31 AM Reporting Lab: [facility] [place] [facility] [address] [address] Performing Lab: [facility] [place] [facility] [address] [address] [facility] [place] CBC AND DIFF (AUTO) EOSINOPHILS /100 LEUKOCYTES IN BLOOD BY AUTOMATED COUNT 1.4 0.4 - 6.8 01/04 Specimen Type: BLOOD No comment entered. Ordering Provider: MAGUE CRUZ Report Released Date/Time: July 05, 2022 10:31 AM Reporting Lab: [facility] [place] [facility] [address] [address] Performing Lab: [facility] [place] [facility] [address] [address] [facility] [place] CBC AND DIFF (AUTO) BASOPHILS/1 00 LEUKOCYTES IN BLOOD BY AUTOMATED COUNT 0.6 0.1 - 2.0 01/04 Specimen Type: BLOOD No comment entered. Ordering Provider: MAGUE CRUZ Report Released Date/Time: July 05, 2022 10:31 AM Reporting Lab: [facility] [place] [facility] [address] [address] Performing Lab: [facility] [place] [facility] [address] [address] [facility] [place] [facility] CBC AND DIFF (AUTO) NEUTROPHILS [#/VOLUME] IN BLOOD BY AUTOMATED COUNT 4.20 10*3/u L 2.20 - 7.60 01/04 Specimen Type: BLOOD No comment entered. Ordering Provider: MAGUE CRUZ Report Released Date/Time: July 05, 2022 10:31 AM Reporting Lab: [facility] [place] [facility] [address] [address] Performing Lab: [facility] [place] [facility] [address] [address] [facility] [place] [facility] CBC AND DIFF (AUTO) LYMPHOCYTES [#/VOLUME] IN BLOOD BY AUTOMATED COUNT 1.69 10*3/u L 1.00 - 3.20 11/21 /2023 Specimen Type: BLOOD No comment entered. Ordering Provider: MAGUE CRUZ Report Released Date/Time: July 05, 2022 10:31 AM Reporting Lab: [facility] [place] [facility] [address] [address] Performing Lab: [facility] [place] [facility] [address] [address] [facility] [place] [facility] CBC AND DIFF (AUTO) EOSINOPHILS [#/VOLUME] IN BLOOD BY AUTOMATED COUNT 0.09 10*3/u L 0.03 - 0.44 01/04 Specimen Type: BLOOD No comment entered. Ordering Provider: MAGUE CRUZ Report Released Date/Time: July 05, 2022 10:31 AM Reporting Lab: [facility] [place] [facility] [address] [address] Performing Lab: [facility] [place] [facility] [address] [address] [facility] [place] [facility] CBC AND DIFF (AUTO) BASOPHILS [#/VOLUME] IN BLOOD BY AUTOMATED COUNT 0.04 10*3/u L 0.01 - 0.13 01/04 Specimen Type: BLOOD No comment entered. Ordering Provider: MAGUE CRUZ Report Released Date/Time: July 05, 2022 10:31 AM Reporting Lab: [facility] [place] [facility] [address] [address] Performing Lab: [facility] [place] [facility] [address] [address] [facility] [place] [facility] CBC AND DIFF (AUTO) IMMATURE GRANULOCYTE S/100 LEUKOCYTES IN BLOOD BY AUTOMATED COUNT 0.3 0.0 - 0.7 01/04 Specimen Type: BLOOD No comment entered. Ordering Provider: MAGUE CRUZ Report Released Date/Time: July 05, 2022 10:31 AM Reporting Lab: [facility] [place] [address] [address] Performing Lab: [facility] [place] [address] [address] [facility] [place] [facility] CBC AND DIFF (AUTO) IMMATURE GRANULOCYTE S [#/VOLUME] IN BLOOD 0.02 10*3/u L 0.00 - 0.06 01/04 Specimen Type: BLOOD No comment entered. Ordering Provider: MAGUE CRUZ Report Released Date/Time: July 05, 2022 10:31 AM Reporting Lab: [facility] [place] [facility] [address] [address] Performing Lab: [facility] [place] [facility] [address] [address] [facility] [place] [facility] LIPID PANEL FASTING CHOLESTEROL [MASS/VOLUM E] IN SERUM OR PLASMA 167 mg/dL 7 - 199 06/30 Specimen Type: SERUM No comment entered. Ordering Provider: MAGUE CRUZ Report Released Date/Time: May 07, 2022 09:34 AM Reporting Lab: [facility] [place] [facility] [address] [address] Performing Lab: [facility] [place] [place] [facility] [address] [address] [facility] [place] [facility] LIPID PANEL FASTING TRIGLYCERID E [MASS/VOLUM E] IN SERUM OR PLASMA 85 mg/dL 0 - 150 06/30 Specimen Type: SERUM No comment entered. Ordering Provider: MAGUE CRUZ Report Released Date/Time: May 07, 2022 09:34 AM Reporting Lab: [facility] [place] [facility] [address] [address] Performing Lab: [facility] [place] [facility] [address] [address] [facility] [place] [facility] LIPID PANEL FASTING CHOLESTEROL IN LDL [MASS/VOLUM E] IN SERUM OR PLASMA BY CALCULATION 108 mg/dL 0 - 129 06/30 Specimen Type: SERUM No comment entered. Ordering Provider: MAGUE CRUZ Report Released Date/Time: May 07, 2022 09:34 AM Reporting Lab: [facility] [place] [facility] [address] [address] Performing Lab: [facility] [place] [facility] [address] [address] [facility] [place] [facility] LIPID PANEL FASTING CHOLESTEROL .TOTAL/CHOL ESTEROL IN HDL [MASS RATIO] IN SERUM OR PLASMA 4.0 06/30 Specimen Type: SERUM No comment entered. Ordering Provider: MAGUE CRUZ Report Released Date/Time: May 07, 2022 09:34 AM Reporting Lab: [facility] [place] [facility] [address] [address] Performing Lab: [facility] [place] [facility] [address] [address] [facility] [place] [facility] LIPID PANEL FASTING CHOLESTEROL IN HDL [MASS/VOLUM E] IN SERUM OR PLASMA 42 mg/dL 40 - 60 06/30 Specimen Type: SERUM No comment entered. Ordering Provider: MAGUE CRUZ Report Released Date/Time: May 07, 2022 09:34 AM Reporting Lab: [facility] [place] [facility] [address] [address] Performing Lab: [facility] [place] [facility] [address] [address] [facility] [place] [facility] Vital Signs Combined list of inpatient and outpatient Vital Signs from Department of Defense and Veterans Affairs, ranging from 12 months to all on record, depending upon the facility. Vital Sign Value Date Comments Source SYSTOLIC BLOOD PRESSURE 154 11/11/19 24 09:02:37 [facility] [place] [facility] DIASTOLIC BLOOD PRESSURE 90 024 09:02:37 [facility] [place] [facility] PULSE OXIMETRY 90 11/11/2023 09:02:37 [facility] [place] [facility] WEIGHT 265 11/11/2023 09:02:37 [facility] [place] [facility] BMI 37 kg/m2 11/11/2023 09:02:37 [facility] [place] [facility] PAIN 0 11/11/2023 09:02:37 [facility] [place] [facility] TEMPERATURE 98.7 11/11/2023 09:02:37 [facility] PULSE 107 11/11/2023 09:02:37 [facility] RESPIRATION 16 11/11/2023 09:02:37 [facility] [place] SYSTOLIC BLOOD PRESSURE 142 05/12/19 24 11:17:47 [facility] [place] DIASTOLIC BLOOD PRESSURE 86 024 11:17:47 [facility] PULSE OXIMETRY 94 05/12/2023 11:17:47 [facility] WEIGHT 250 05/12/2023 11:17:47 [facility] BMI 35 kg/m2 05/12/2023 11:17:47 [facility] PAIN 0 05/12/2023 11:17:47 [facility] TEMPERATURE 97.9 05/12/2023 11:17:47 [facility] PULSE 90 05/12/2023 11:17:47 [facility] RESPIRATION 16 05/12/2023 11:17:47 [facility] Encounters Combined list of: 1) Encounters from Department of Veterans Affairs facilities going backup to the last 18 months, not all VA inpatient encounters are included; 2) Encounters from the Department of Defense facilities going backup to 280 months. Location Location Details Encounter Type Encounter Number Reason For Visit Attending Provider ADM Date DC Date Status Disposition Source [facility] Encounter [id number] 01/05 [facility] OFFICE O/P EST MOD 30-39 MIN [id number] Diagnos is: ICD-10- CM J43.2 Centril obular emphyse GORDON Bee MMED JAWED 01/12 [facility] Encounter [id number] 01/13 [facility] Encounter [id number] 01/14 [facility] [place] [facility] Outpatient Encounter [id number] Diagnos is: ICD-10- CM R91.8 Other nonspec ific abnorma l finding of lung field KARLA MCKAYN 01/14 [facility] Encounter [id number] 01/14 [facility] CMPTR OPHTH IMG OPTIC NERVE [id number] Diagnos is: ICD-10- CM H40.013 Open angle with borderl ine finding s, low risk, bilater al CLAUDIA CAMARA 03/01 [facility] COMPRE OPH EXAM EST PT 1/> [id number] Diagnos is: ICD-10- CM 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, upper and lower eyelids CLAUDIA CAMARA 03/01 [facility] FIT SPECTACLES MULTIFOCAL [id number] Diagnos is: ICD-10- CM Z46.0 Encount er for fit/adj st of spectac les and contact lenses CLAUDIA CAMARA 03/01 [facility] En[facility] [id number] 03/17 [facility] Encounter [id number] 03/22 [facility] Encounter [id number] 03/23 [facility] En[facility] [id number] 04/06 [facility] Encounter [id number] 05/11 [facility] OFFICE O/P EST MOD 30 MIN [id number] Diagnos is: ICD-10- CM J43.2 Centril obular emphyse GORDON Bee MMED JAWED 05/11 [facility] QNHP OL DIG ASSMT&MGMT 11-20 [id number] Diagnos is: ICD-10- CM R91.1 Solitar y pulmona ry nodule SIGIFREDO GOMEZCA L 05/11 [facility] En[facility] [id number] 07/25 [facility] En[facility] [id number] 07/26 [facility] Encounter [id number] 08/14 [facility] Encounter [id number] 08/29 [facility] Encounter [id number] 09/04 [facility]counter [id number] 09/28 [facility] Encounter [id number] 10/27 [facility] Encounter [id number] 10/30 [facility] Encounter [id number] 10/31 [facility] En[facility] [id number] 11/06 [facility] OFFICE O/P EST HI 40 MIN [id number] 1. Diagnos is: ICD-10- CM J43.2 Centril obular emphyse ma ROSARIOLO,TI NA 11/10 [facility] En[facility] [id number] 11/10 [facility] En[facility] [id number] 1.11/15 [facility] En[facility] [id number] [facility] Encounter [id number] 1.11/24 [facility] OFFICE O/P NEW MOD 45 MIN [id number] 1. Diagnos is: ICD-10- CM L57.0 Actinic keratos is ALECIA ESTEBAN 11/28 [facility] En[facility] [id number] 1.12/06 [facility] [id number] 1.01/03 [facility] [id number] 01/18 [facility] [id number] 02/12 [facility] [id number] 02/12 [facility]counter [id number] 02/21 [facility] OFFICE O/P EST MOD 30 MIN [id number] Diagnos is: ICD-10- CM L71.1 Rhinoph CLAUDIA Ceron 03/20 [facility] CPTRZD OPH DX IMG ANT SGM [id number] Diagnos is: ICD-10- CM H40.013 Open angle with borderl ine finding s, low risk, bilater al CLAUDIA CAMARA 03/20 [facility] FIT SPECTACLES MULTIFOCAL [id number] Diagnos is: ICD-10- CM Z46.0 Encount er for fit/adj st of spectac les and contact lenses CLAUDIA CAMARA 03/22 [facility] [place] [place] [facility] Social History Combined list of available smoking, tobacco, and other social history from [facility] of Defense and [facility] facilities. Social History Type Response Date Comment Source Tobacco smoking status MEIS OR-TOBACCO USER EVERY DAY 01/12/2023 [facility] [place] [facility] History of tobacco use OR-TOBACCO USE 30 YEARS OR MORE 01/12/2023 [facility] [place] [facility] History of tobacco use OR-TOBACCO USER EVERY DAY 10/23/2021 [facility] [place] [facility] History of tobacco use OR-TOBACCO USER EVERY DAY 10/29/2020 [facility] [place] [facility] History of tobacco use OR-TOBACCO FORMER USER 10/10/2019 [facility] [place] [facility] of [facility] [place] [facility] History of tobacco use CURRENT SMOKER 08/04/2017 [facility] [place] [facility] History of tobacco use QUIT TOBACCO USE IN PAST YEAR 01/31/2017 31 days [facility] [place] [facility] History of tobacco use CURRENT SMOKER 01/26/2016 [facility] [place] [facility] History of tobacco use QUIT TOBACCO USE IN PAST YEAR 02/20/2015 [facility] [place] [facility] History of tobacco use CURRENT SMOKER 06/17/2014 Reports being an off and on smoker -cigarette s OR [facility] [place] [facility] History of tobacco use CURRENT SMOKER 09/14/2011 less than a pack a day OR [facility] [place] [facility] History of tobacco use CURRENT SMOKER 03/09/2010 1 ppd OR [facility] [place] [facility] History of tobacco use V1-PT DECLINES TOBACCO CESSATION MEDS 09/29/2009 [facility] History of tobacco use CURRENT SMOKER 01/29/2009 1 ppd [facility] History of tobacco use CURRENT SMOKER 03/17/2005 [facility] Plan of Care List of future care activities from [facility] facilities. Additional future care activities may be listed in the Assessment and Plan section. Date/Time Care Activity Care Activity Detail Facili ty 05/10/2024 AMBULATORY - NONE AMBULATORY - NONE [facility] 05/10/2024 AMBULATORY - MEDICINE AMBULATORY - MEDICI NE [facility] 05/10/2024 Imaging - CT Scan Order LDCT MIN G CANCER SCREENING [facility] Advance Directives List of completed, amended, or rescinded Advance Directives on record at [facility] facilities. An actual copy of the Directive is not included. Date Advance Directive Provider Source 11/11/2023 ADVANCE DIRECTIVE JACOB DEL TORO [facility]
== END 2024-04-11 10:40 | disposition home or self-care (01) ==
LOC: HO.US 10:39
PROVIDERS: PCP Internal Medicine; Visit Provider Urology
DX: R39.12 Poor urinary stream (principal); N40.0 Benign prostatic hyperplasia without lower urinary tract symptoms
CPT/HCPCS: 76857

== ENCOUNTER → 2024-04-11 10:40 | Outpatient (BNV) | payer OTHER, SELFPAY | PROVIDERS: PCP Internal Medicine; Visit Provider Radiology Diagnostic Radiology | DX: R39.12 Poor urinary stream (principal) | CPT/HCPCS: 76857 ==

== ENCOUNTER 2024-04-12 12:37 | Outpatient (AMB) | payer OTHER, SELFPAY ==
--- NOTE | 2024-04-12 12:56 | A.OFFVIS_ITS ---
Intake Visit Reasons: cysto/US Intake Note: Patient is present for Cystoscopy/US Urology Medication:TAMSULOSIN,FINASTERIDE Antibiotic Allergy:NONE Blood Thinner:NONE Lot:[id number] Exp: Book Or Script Editor Required: No Allergies varenicline [From Chantix] Allergy (Mild, Verified 04/12/24 12:58) Unknown HPI Comments Details: Rene is a pleasant male. He is a patient of Dr. Roblero. He seen for the following urologic conditions - lower urinary tract symptoms Here for office cystoscopy Large prostate noticed Large PVR noted on bladder ultrasound Start bethanechol Recommend prostate GreenLight laser Lower urinary tract symptoms On combination therapy - finasteride and tamsulosin Persistent weakness of stream with urinary urgency Bladder ultrasound - large PVR, 50 g prostate PFSH Medical History (Updated 04/12/24 @ 13:35 by Roe Serrano MD) Frequent urination Nocturia Other obesity not elsewhere classified Other male erectile dysfunction Other hemochromatosis Impacted cerumen Depressive disorder, not elsewhere classified Centrilobular emphysema Elevated PSA Hemochromatosis Pulmonary nodules COPD (chronic obstructive pulmonary disease) Personal history of nicotine dependence BPH (benign prostatic hyperplasia) Erectile dysfunction Surgical History (Updated 02/14/24 @ 10:15 by CHADD Paige) History of tonsillectomy History of appendectomy History of colonoscopy Family History (Updated 02/09/24 @ 10:58 by CHADD Paige) Mother Sepsis Father GI cancer Social History (Updated 05/24/23 @ 09:15 by CHADD Lloyd) Patient Tobacco Use Status: Current someday Tobacco user Tobacco use type: Cigarette Years Smoked: smoked for 60 years 1PPD, quit a few days ago. started at 11 Review of Systems Const Denies chills and Denies fever(s) Card Reports no additional complaints and Denies syncope Resp Denies cough GI Denies abdominal pain and Denies heartburn Reports as per HPI and Denies change in libido Neuro Denies syncope Psych Denies change in libido Endo Denies change in libido Physical Exam Const General: cooperative, healthy appearing, comfortable and no acute distress Orientation/consciousness: patient oriented x3 HEENT Face and sinus: Yes normal facial exam Mouth: moist mucous membranes Neck Neck: Yes normal visual inspection, Yes full ROM and Yes trachea midline Chest Chest palpation & inspection: normal inspection of the chest Resp Effort & Inspection: normal respiratory effort, able to speak in complete sentences and no respiratory distress GI Inspection: Yes normal to inspection Back/Spine/Pelvis Cervical Spine: normal cervical lordosis Thoracic/Lumbar Spine: thoracic and lumbar spine normal to inspection Skin General skin exam: no rashes or lesions noted Neuro General: patient oriented x3, gait normal, tone normal and moves all extremities Extrem General: Yes normal to inspection and Yes capillary refill normal Office Procedures Cystoscopy Consent Discussed risk and benefit or proposed procedure with the patient. Information consent for procedure given to the patient. Discussed technical aspects, risks, benefits and alternatives in full. Addressed all of the patient's questions and concerns regarding the procedure. The patient demonstrated knowledge and understanding. They wish to proceed with this procedure. Preparation The patient was prepped in the usual manner. A storekeeper engineering was present and in the room. Genitalia was prepped with betadine solution in a sterile manner. Lidocaine Jelly 2% was placed into the urethra and 16Fr flexible Olympus cystoscope was inserted into the meatus after adequate lubrication. Procedure Cystoscopy performed using a disposable Urovue digital 16 Wolof cystoscope. Meatus circumcised Urethra anterior and posterior urethra Prostatic Urethra trilobar hyperplasia Bladder examination with retroflexion of cystoscope Bladder Orifices normal shape and position Bladder Capacity median Trabeculations grade 1/2 Cellule Formation yes Diverticulum Formation -- Mucosal Erythema - Bladder Tumor - [id number]-[id number] DISPOSABLE SCOPE URO-G FLEXIBLE SCOPE Procedure code (CPT) selection complete Office Meds lidocaine HCl 2 % mucosal jelly in applicator Performing Provider: Roe Serrano MD Performing Location[place] [facility] Administered by: Rabia Villatoro RN on 04/12/24 13:52 Dose Route Admin Location Dispensed Lot Number Expiration Date ND Manager Family 10 mL intra-urethral 10 mL nitrofurantoin monohydrate/macrocrystals 100 mg capsule Performing Provider: Roe Serrano MD Performing Location[place] [facility] Administered by: Rabia Villatoro RN on 04/12/24 13:52 Dose Route Admin Location Dispensed Lot Number Expiration Date ND Manager Family 100 mg PO 1 cap Results AMB Urinalysis, Automated UA Leukoctes 0 Naresh/uL Last Edit by ZAIN Nava on 04/12/24 13:13 UA Nitrite Negative Last Edit by ZAIN Nava on 04/12/24 13:13 UA Urobilinogen 0.2 mg/dL Last Edit by Jaclyn Romeo [facility] on 04/12/24 13:1 3 UA Protein 15 mg/dL Last Edit by Jaclyn Romeo [facility] on 04/12/24 13:13 UA pH 6.5 Last Edit by Jaclyn Romeo [facility] on 04/12/24 13:13 UA Blood 0 Ignacio/uL Last Edit by Jaclyn Romeo [facility] on 04/12/24 13:13 UA Specific [place] 1.015 Last Edit by Jaclyn Romeo [facility] on 04/12/24 13: 13 UA Ketone Positive Last Edit by Jaclyn Romeo [facility] on 04/12/24 13:13 UA Bilirubin 0 mg/dL Last Edit by Jaclyn Romeo [facility] on 04/12/24 13:13 UA Glucose 0 mg/dL Last Edit by Jaclyn Romeo [facility] on 04/12/24 13:13 Results Reviewed Results Reviewed: Laboratory Last Values Urine pH (Auto) 6.5 04/12/24 13:12 Specific [place] (Auto) 1.015 04/12/24 13:12 Urine Protein (Auto) 15 mg/dL 04/12/24 13:12 Glucose (UA)(Auto) 0 mg/dL 04/12/24 13:12 Urine Ketones (Auto) Positive 04/12/24 13:12 Urine Blood (Auto) 0 Ignacio/uL 04/12/24 13:12 Urine Nitrite (Auto) Negative 04/12/24 13:12 Urine Bilirubin (Auto) 0 mg/dL 04/12/24 13:12 Urine Urobilinogen (Auto) 0.2 mg/dL 04/12/24 13:12 Leukocyte Esterase (Auto) 0 Naresh/uL 04/12/24 13:12 Assessment & Plan Assessment & Plan (1) BPH (benign prostatic hyperplasia): Code(s): N40.0 - Benign prostatic hyperplasia without lower urinary tract symptoms Category: Medical (2) Incomplete emptying of bladder due to benign prostatic hyperplasia: Code(s): N40.1 - Benign prostatic hyperplasia with lower urinary tract symptoms; R33.9 - Retention of urine, unspecified Category: Medical Plan We discussed the nature of the decision and reasonable options for performing a prostate intervention. Interventions include TURP, GreenLight laser enucleation of the prostate, GreenLight laser ablation of the prostate, transurethral incision of the prostate, and I-Tend prostate procedure. Options such as medical therapy were discussed. The relative uncertainties and benefits related to each alternate procedure were adequately discussed. General surgical risks including, but not limited to, pain, bleeding, infection, myocardial infarction, pulmonary embolus, deep vein thrombosis and cerebrovascular accident which may result in further hospitalization were discussed. Full disclosure of the procedure as well as all major risks, benefits and complications were discussed including but not limited to damage to the urethra or bladder neck, recurrent BPH, retrograde ejaculation, bladder infection, urge, de tameka frequency, incomplete emptying, dysuria, remote chance of erectile dysfunction, epididymitis, and meatal stenosis. The success rate of the procedure was discussed. Success of the procedure in the short-term does not necessarily guarantee that long-term success will be maintained. Suitable follow up will need to be maintained. The patient showed understanding of discussion. An opportunity was provided for questions to be answered and wishes to proceed with the following procedure. - GreenLight laser prostatectomy Orders: Orders AMB Cystoscopy 04/12/24 N40.0 - Benign prostatic hyperplasia without lower urinary tract symptoms AMB Urinalysis Automated 04/12/24 Z13.9 - Encounter for screening, unspecified Patient Instructions: This note is constructed using voice recognition software. While every effort has been made to ensure accuracy extractor tender raw stock errors may have been included. Imaging studies, laboratory and physical exam results were discussed and reviewed in detail. No major barriers to patient understanding were identified. An opportunity to ask questions regarding the treatment plan was provided. All questions were answered. The patient expressed understanding and agreement with the above treatment plan. The patient is aware they should contact our office by phone for worsening of their current condition or the appearance of new urologic symptoms. Compliance is encouraged with any medications and followup testing that is ordered. It is a privilege to participate in the urologic care of your patient. If you have any questions or concerns regarding treatment for the above conditions, or other urologic issues, please do not hesitate to contact me. The office telephone contact is [phone]. Sincerely, Dr Roe Serrano MD, [facility] - Urology Compassionate Specialist Care for the Genitourinary System Coding Level of Care Code Est Pt Level 4 (96838) Diagnoses BPH (benign prostatic hyperplasia) N40.0 Incomplete emptying of bladder due to benign prostatic hyperplasia N40.1; R33.9 CPT Codes Cystoscopy - CPT: 04198-[id number] ([id number])
--- OUTSIDE RECORDS SUMMARY | 2024-04-12 14:59 | XMS_ITS | Continuity of Care Document ---
Author Name DOD-NE Organization DOD-NE Care Team Providers [employer] Sales Representative Name Role Phone DOD-NE Unavailable Unavailable Problems Combined list of problems from Department of Defense and Veterans Affairs facilities. It does not include entries that were removed or entered in error. Problem Status Onset Date Problem Type Date of Resolution Comments Source Hemochromatosis (SNOMED CT 029453841) Active 02/14/18 96 Condition Nov 11, 2023 Entered By: PRINCESS RAMON Comment: keep HCT <16, ferritin <200. [place] [facility] [place] to every other month, 450cc [facility] Benign prostatic hyperplasia Active Condition [facility] Centriacinar emphysema Active Condition [facility] Depressive Disorder NEC (ICD-9-CM 311.) Active Condition [facility] Elevated Prostate Specific Antigen (PSA) (ICD-9-CM 790.93) Active Condition [facility] Erectile dysfunction (SNOMED CT 000309676) Active Condition [facility] Hemochromatosis Active Condition [facility] Impacted cerumen * (ICD-9-CM 380.4) Active Condition [facility] Impaired fasting glucose Active Condition [facility] Nicotine dependence (SNOMED CT 08090358) Active Condition [facility] [...] abnormal finding of lung field Active Diagnosis [facility] Medications Combined list of outpatient medications [...] G RESPIR ATORY (INHAL ATION) ACTIVE 11/25/2024 [id number] FURCOLO,T PATY 2023 3 [facility] ALBUTEROL 90MCG/ACTUA T (CFC-F) INHL,ORAL,8 .5GM DOSE COUNTER INHALE 2 PUFFS BY MOUTH FOUR TIMES DAILY NEEDED FOR BREATHIN G RESPIR ATORY (INHAL ATION) DISCONT INUED 08/16/2024 [id number] 4 FURCOLO,T PATY 2023 1 [facility] ALBUTEROL 90MCG/ACTUA T (CFC-F) INHL,ORAL,8 .5GM DOSE COUNTER INHALE 2 PUFFS BY MOUTH FOUR TIMES DAILY NEEDED FOR BREATHIN G RESPIR ATORY (INHAL ATION) DISCONT INUED 07/06/2023 [id number] 4 [facility] J[facility] 2022 1 [facility] CARBOXYMETH YLCELLULOSE NA 0.5% SOLN,OPH INSTILL 1 DROP INTO EACH EYE FOUR TIMES DAILY NEEDED FOR DRY EYE OPHTHA LMIC 03/01/2024 [id number] Jas CAMARA ICHELE 2023 45 [facility] FINASTERIDE 5MG TAB TAKE ONE TABLET BY MOUTH ONCE DAILY FOR PROSTATE ORAL ACTIVE 02/13/2025 [id number] 4 FURCOLO,T PATY 2023 90 [facility] FINASTERIDE 5MG TAB TAKE ONE TABLET BY MOUTH ONCE DAILY FOR PROSTATE ORAL DISCONT INUED 01/13/2024 [id number] 4 [facility] DAVID JAWED 2022 90 [facility] FLUTICASONE 250MCG/SALM ETEROL 50MCG INHL,ORAL,D ISKUS,60 INHALE 1 PUFF BY MOUTH TWICE DAILY FOR BREATHIN G - RINSE MOUTH AFTER USE RESPIR ATORY (INHAL ATION) ACTIVE 08/16/2024 [id number] 5 FURCOLO,T PATY 2023 1 [facility] FLUTICASONE 250MCG/SALM ETEROL 50MCG INHL,ORAL,D ISKUS,60 INHALE 1 PUFF BY MOUTH TWICE DAILY FOR BREATHIN G - RINSE MOUTH AFTER USE RESPIR ATORY (INHAL ATION) DISCONT INUED 01/13/2024 [id number] 4 [facility] JAWED 2022 1 [facility] LIDOCAINE 5% PATCH APPLY 1 PATCH TOPICALL Y ONCE DAILY FOR NERVE PAIN (LEAVE PATCH ON FOR 12 HOURS, THEN REMOVE PATCH) TOPICA L ACTIVE 11/11/2024 [id number] FURCOLO,T PATY 2023 90 [facility] TAMSULOSIN HCL 0.4MG CAP TAKE ONE CAPSULE BY MOUTH AT BEDTIME ORAL ACTIVE 08/16/2024 [id number] 4 FURCOLO,T PATY 2023 90 [facility] TAMSULOSIN HCL 0.4MG CAP TAKE ONE CAPSULE BY MOUTH AT BEDTIME ORAL DISCONT INUED 01/13/2024 [id number] 4 DK CRUZ JAWED 2022 90 [facility] THEOPHYLLIN E 400MG 24HR TAB,SA TAKE ONE TABLET BY MOUTH ONCE DAILY ORAL DISCONT INUED BY PROVIDE R 04/06/2024 [id number] [place] MIGUEL BARBARA 2023 30 [facility] TIOTROPIUM 2.5MCG/ACTU AT INHL,ORAL,6 0D,4GM INHALE 2 PUFFS BY MOUTH ONCE DAILY RESPIR ATORY (INHAL ATION) ACTIVE 08/16/2024 [id number] 5 FURCOLO,T PATY 2023 1 [facility] TIOTROPIUM 2.5MCG/ACTU AT INHL,ORAL,6 0D,4GM INHALE 2 PUFFS BY MOUTH ONCE DAILY RESPIR ATORY (INHAL ATION) DISCONT INUED 01/13/2024 [id number] 4 DK CRUZ JAWED 2022 1 [facility] Allergies, Adverse Reactions, Alerts Combined list of allergies from Department of Defense and Veterans Affairs facilities. It does not include entries that were removed or entered in error. Substance Category Reaction Severity Reaction type Status Date Reported Comments Source CHANTIX Propensity to adverse reactions to drug (finding) Anxiety active 0 [facility] [place] [facility] Immunizations Combined list of available immunizations from the Department of Defense and Veterans Affairs facilities. Immunization Series Date Given Administered By Site Reaction Lot Number CVX Code Drug Casing Crew Status Comments Source INFLUENZA, HIGH-DOSE, QUADRIVALENT 2022 PELON ESPINOSA LEFT DELTO ID [id number] 197 complet ed [facility] INFLUENZA VACCINE, QUADRIVALENT, ADJUVANTED 2021 205 complet ed [facility] ZOSTER RECOMBINANT 2 2021 187 complet ed [facility] COVID-19 (MODERNA), MRNA, LNP-S, PF, 100 MCG OR 50 MCG DOSE 3 2020 207 complet ed MOD; [id number]; 2 [facility] [...] DOSE 2 2020 207 complet ed MOD; [id number]; 1 [facility] COVID-19 (MODERNA), MRNA, LNP-S, PF, 100 MCG/0.5 ML DOSE 1 2020 207 complet ed MOD; [id number]; 1 [facility] INFLUENZA, UNSPECIFIED FORMULATION 2019 88 complet ed [facility] PNEUMOCOCCAL CONJUGATE PCV 13 2014 133 complet ed [facility] ZOSTER (SHINGLES) (HISTORICAL) 2014 121 complet ed Proximal Left Arm [facility] [place] [facility] DTAP, UNSPECIFIED FORMULATION 2010 107 complet ed Site: Left Deltoid [facility] PNEUMOCOCCAL, UNSPECIFIED FORMULATION 2005 KEITH CESAR 109 complet ed [facility] Results Combined [...] Nov 01, 2023 12:47 PM Reporting Lab: [facility] [place] [address] [address] Performing Lab: [facility] [place] [facility] [address] [facility] [address] [facility] [place] [facility] IRON & TIBC PANEL IRON [MASS/VOLUM E] IN SERUM OR PLASMA 195 ug/dL 40 - 160 11/02 H Specimen Type: SERUM No comment entered. Ordering Provider: RADHA RAMON Report Released Date/Time: Nov 01, 2023 12:47 PM Reporting Lab: [facility] [place] [facility] [address] [facility] [address] Performing Lab: [facility] [place] [facility] [address] [facility] [address] [address] [facility] [place] [facility] IRON & TIBC PANEL IRON/IRON BINDING CAPACITY.TO KEVIN [MASS RATIO] IN SERUM OR PLASMA 72.8 20.0 - 50.0 11/02 H Specimen Type: SERUM No comment entered. Ordering Provider: RADHA RAMON Report Released Date/Time: Nov 01, 2023 12:47 PM Reporting Lab: [facility] [place] [facility] [address] [facility] [address] Performing Lab: [facility] [place] [address] [address] [address] [facility] WSTRN [place] [facility] IRON & TIBC PANEL TRANSFERRIN [MASS/VOLUM E] IN SERUM OR PLASMA 203 mg/dL 200 - 360 11/02 Specimen Type: SERUM No comment entered. Ordering Provider: RADHA RAMON Report Released Date/Time: Nov 01, 2023 12:47 PM Reporting Lab: [facility] [place] [facility] [address] [facility] [address] Performing Lab: [facility] [place] [facility] [address] [facility] [address] [facility] [address] [facility] TR[facility] [place] [facility] FERRITIN FERRITIN [MASS/VOLUM E] IN SERUM OR PLASMA 144 ng/mL 20 - 300 11/02 Specimen Type: SERUM No comment entered. Ordering Provider: RADHA RAMON Report Released Date/Time: Nov 01, 2023 12:47 PM Reporting Lab: [facility]TR[facility] [place] [facility] [address] [facility] [address] Performing Lab: [facility] [place] [facility] [address] [facility] [address] [facility] [address] [facility] [place] [facility] LIVER FUNCTION PROTEIN [MASS/VOLUM E] IN SERUM OR PLASMA 6.4 g/dL 6.0 - 8.3 11/02 Specimen Type: SERUM No comment entered. Ordering Provider: RADHA RAMON Report Released Date/Time: Nov 01, 2023 12:47 PM Reporting Lab: [facility]TR[facility] [place] [facility] [address] [facility] [address] Performing Lab: [facility] [place] [facility] [address] [facility] [address] [facility]ENTERTRN [place] [facility] LIVER FUNCTION ALBUMIN [MASS/VOLUM E] IN SERUM OR PLASMA 4.1 g/dL 3.5 - 5.0 11/02 Specimen Type: SERUM No comment entered. Ordering Provider: RADHA RAMON Report Released Date/Time: Nov 01, 2023 12:47 PM Reporting Lab: [facility] [place] [address] [address] Performing Lab: [facility] [place] [address] [address] [facility] [place] [facility] LIVER FUNCTION ALKALINE PHOSPHATASE [ENZYMATIC ACTIVITY/VO LUME] IN SERUM OR PLASMA 75 U/L 40 - 150 11/02 Specimen Type: SERUM No comment entered. Ordering Provider: RADHA RAMON Report Released Date/Time: Nov 01, 2023 12:47 PM Reporting Lab: [facility] [place] [facility] [address] [facility] [address] Performing Lab: [facility] [place] [facility] [address] [facility] [address] [facility] [place] [facility] LIVER FUNCTION ASPARTATE AMINOTRANSF ERASE [ENZYMATIC ACTIVITY/VO LUME] IN SERUM OR PLASMA 22 U/L 5 - 34 11/02 Specimen Type: SERUM No comment entered. Ordering Provider: RADHA RAMON Report Released Date/Time: Nov 01, 2023 12:47 PM Reporting Lab: [facility] [place] [facility] [address] [facility] [address] Performing Lab: [facility] [place] [facility] [address] [facility] [address] [facility] [place] [facility] LIVER FUNCTION ALANINE AMINOTRANSF ERASE [ENZYMATIC ACTIVITY/VO LUME] IN SERUM OR PLASMA 35 U/L 11/02 Specimen Type: SERUM No comment entered. Ordering Provider: RADHA RAMON Report Released Date/Time: Nov 01, 2023 12:47 PM Reporting Lab: [facility] [place] [facility] [address] [facility] [address] Performing Lab: [facility] [place] [facility] [address] [facility] [address] [facility] [place] [facility] LIVER FUNCTION BILIRUBIN.T OTAL [MASS/VOLUM E] IN SERUM OR PLASMA 0.6 mg/dL 0.2 - 1.2 11/02 Specimen Type: SERUM No comment entered. Ordering Provider: RADHA RAMON Report Released Date/Time: Nov 01, 2023 12:47 PM Reporting Lab: [facility] [place] [facility] [address] [facility] [address] Performing Lab: [facility] [place] [facility] [address] [facility] [facility] [address] [facility] [place] [facility] CBC LEUKOCYTES [#/VOLUME] IN BLOOD BY AUTOMATED COUNT 7.31 10*3/u L 4.50 - 11.00 11/02 Specimen Type: BLOOD No comment entered. Ordering Provider: RADHA RAMON Report Released Date/Time: Nov 01, 2023 12:47 PM Reporting Lab: [facility] [place] [facility] [address] [facility] [address] Performing Lab: [facility] [place] [facility] [address] [facility] [facility] [address] [facility] [place] [facility] CBC ERYTHROCYTE S [#/VOLUME] IN BLOOD BY AUTOMATED COUNT 5.14 10*6/u L 4.23 - 5.66 11/02 Specimen Type: BLOOD No comment entered. Ordering Provider: RADHA RAMON Report Released Date/Time: Nov 01, 2023 12:47 PM Reporting Lab: [facility] [place] [facility] [address] [facility] [address] Performing Lab: [facility] [place] [facility] [address] [facility] [address] [facility] [place] [facility] CBC HEMOGLOBIN [MASS/VOLUM E] IN BLOOD 16.5 g/dL 12.8 - 17 11/02 Specimen Type: BLOOD No comment entered. Ordering Provider: RADHA RAMON Report Released Date/Time: Nov 01, 2023 12:47 PM Reporting Lab: [facility] [place] [facility] [address] [facility] [address] Performing Lab: [facility] [place] [facility] [address] [facility] [address] [facility] [place] [facility] CBC HEMATOCRIT [VOLUME FRACTION] OF BLOOD BY AUTOMATED COUNT 49.0 39.2 - 50.4 11/02 Specimen Type: BLOOD No comment entered. Ordering Provider: RADHA RAMON Report Released Date/Time: Nov 01, 2023 12:47 PM Reporting Lab: [facility] [place] [facility] [address] [facility] [address] Performing Lab: [facility] [place] [facility] [address] [facility] [address] [facility] [place] [facility] CBC MCV [ENTITIC VOLUME] BY AUTOMATED COUNT 95.3 fL 82 - 99 11/02 Specimen Type: BLOOD No comment entered. Ordering Provider: RADHA RAMON Report Released Date/Time: Nov 01, 2023 12:47 PM Reporting Lab: [facility] [place] [facility] [address] [facility] [address] Performing Lab: [facility] [place] [facility] [address] [facility] [address] [facility] [place] [facility] CBC MCHC [MASS/VOLUM E] BY AUTOMATED COUNT 33.7 g/dL 30.8 - 35.1 11/02 Specimen Type: BLOOD No comment entered. Ordering Provider: RADHA RAMON Report Released Date/Time: Nov 01, 2023 12:47 PM Reporting Lab: [facility] [place] [facility] [address] [facility] [address] Performing Lab: [facility] [place] [facility] [address] [facility] [address] [facility] [place] [facility] CBC PLATELETS [#/VOLUME] IN BLOOD BY AUTOMATED COUNT 182 10*3/u L 140 - 360 11/02 Specimen Type: BLOOD No comment entered. Ordering Provider: RADHA RAMON Report Released Date/Time: Nov 01, 2023 12:47 PM Reporting Lab: [facility] [place] [facility] [address] [facility] [address] Performing Lab: [facility] [place] [facility] [address] [facility] [address] [facility] [place] [facility] CBC ERYTHROCYTE DISTRIBUTIO N WIDTH [RATIO] BY AUTOMATED COUNT 12.3 12.0 - 16.0 11/02 Specimen Type: BLOOD No comment entered. Ordering Provider: RADHA RAMON Report Released Date/Time: Nov 01, 2023 12:47 PM Reporting Lab: [facility] [place] [facility] [address] [facility] [address] Performing Lab: [facility] [place] [facility] [address] [facility] [address] [facility] [place] [facility] CBC MCH [ENTITIC MASS] BY AUTOMATED COUNT 32.1 pg 26.2 - 32.6 11/02 Specimen Type: BLOOD No comment entered. Ordering Provider: RADHA RAMON Report Released Date/Time: Nov 01, 2023 12:47 PM Reporting Lab: [facility] [place] [facility] [address] [facility] [address] Performing Lab: [facility] [place] [facility] [address] [facility] [address] [facility] [place] [facility] FERRITIN FERRITIN [MASS/VOLUM E] IN SERUM OR PLASMA 205 ng/mL 20 - 300 01/04 Specimen Type: SERUM No comment entered. Ordering Provider: MAGUE CRUZ Report Released Date/Time: July 05, 2022 10:31 AM Reporting Lab: [facility] [place] [facility] [address] [facility] [address] Performing Lab: [facility] [place] [facility] [address] [facility] [address] [facility] [place] [facility] BASIC METABOLIC PANEL (fasting) UREA NITROGEN [MASS/VOLUM E] IN SERUM OR PLASMA 14 mg/dL 7 - 25 01/04 Specimen Type: SERUM No comment entered. Ordering Provider: MAGUE CRUZ Report Released Date/Time: July 05, 2022 10:31 AM Reporting Lab: [facility] [place] [facility] [address] [facility] [address] Performing Lab: [facility] [place] [facility] [address] [facility] [address] [facility] [place] [facility] BASIC METABOLIC PANEL (fasting) GLUCOSE [MASS/VOLUM E] IN SERUM OR PLASMA 108 mg/dL 65 - 100 01/04 H Specimen Type: SERUM No comment entered. Ordering Provider: MAGUE CRUZ Report Released Date/Time: July 05, 2022 10:31 AM Reporting Lab: [facility] [place] [facility] [address] [facility] [address] Performing Lab: [facility] [place] [facility] [address] [facility] [address] [facility] [place] [facility] BASIC METABOLIC PANEL (fasting) SODIUM [MOLES/VOLU ME] IN SERUM OR PLASMA 142 mmol/L 135 - 145 01/04 Specimen Type: SERUM No comment entered. Ordering Provider: MAGUE CRUZ Report Released Date/Time: July 05, 2022 10:31 AM Reporting Lab: [facility] [place] [facility] [address] [facility] [address] Performing Lab: [facility] [place] [facility] [address] [facility] [address] [facility] [place] [facility] BASIC METABOLIC PANEL (fasting) POTASSIUM [MOLES/VOLU ME] IN SERUM OR PLASMA 4.3 mmol/L 3.5 - 5.0 01/04 Specimen Type: SERUM No comment entered. Ordering Provider: MAGUE CRUZ Report Released Date/Time: July 05, 2022 10:31 AM Reporting Lab: [facility] [place] [facility] [address] [facility] [address] Performing Lab: [facility] [place] [facility] [address] [facility] [address] [facility] [place] [facility] BASIC METABOLIC PANEL (fasting) CHLORIDE [MOLES/VOLU ME] IN SERUM OR PLASMA 103 mmol/L 100 - 110 01/04 Specimen Type: SERUM No comment entered. Ordering Provider: MAGUE CRUZ Report Released Date/Time: July 05, 2022 10:31 AM Reporting Lab: [facility] [place] [facility] [address] [facility] [address] Performing Lab: [facility] [place] [facility] [address] [facility] [address] [facility] [place] [facility] BASIC METABOLIC PANEL (fasting) CARBON DIOXIDE, TOTAL [MOLES/VOLU ME] IN SERUM OR PLASMA 31 meq/L 20 - 30 01/04 H Specimen Type: SERUM No comment entered. Ordering Provider: MAGUE CRUZ Report Released Date/Time: July 05, 2022 10:31 AM Reporting Lab: [facility] [place] [facility] [address] [facility] [address] Performing Lab: [facility] [place] [facility] [address] [facility] [address] [facility] [place] [facility] BASIC METABOLIC PANEL (fasting) CREATININE [MASS/VOLUM E] IN SERUM OR PLASMA 0.95 mg/dL 0.50 - 1.40 01/04 Specimen Type: SERUM No comment entered. Ordering Provider: MAGUE CRUZ Report Released Date/Time: July 05, 2022 10:31 AM Reporting Lab: [facility] [place] [address] [address] Performing Lab: [facility] [place] [address] [address] [facility] [place] [facility] BASIC METABOLIC PANEL (fasting) GLOMERULAR FILTRATION RATE/1.73 SQ M.PREDICTED [VOLUME RATE/AREA] IN SERUM, PLASMA OR BLOOD BY CREATININE- BASED FORMULA (CKD-EPI 2020) 84 mL/min 60 01/04 Specimen Type: SERUM No comment entered. Ordering Provider: MAGUE CRUZ Report Released Date/Time: July 05, 2022 10:31 AM Reporting Lab: [facility] [place] [address] [address] Performing Lab: [facility] [place] [facility] [address] [facility] [address] [facility] [place] [facility] LIVER FUNCTION PROTEIN [MASS/VOLUM E] IN SERUM OR PLASMA 6.4 g/dL 6.0 - 8.3 01/04 Specimen Type: SERUM No comment entered. Ordering Provider: MAGUE CRUZ Report Released Date/Time: July 05, 2022 10:31 AM Reporting Lab: [facility] [place] [address] [address] Performing Lab: [facility] [place] [facility] [address] [facility] [address] [facility] [place] [facility] LIVER FUNCTION ALBUMIN [MASS/VOLUM E] IN SERUM OR PLASMA 4.0 g/dL 3.5 - 5.0 01/04 Specimen Type: SERUM No comment entered. Ordering Provider: MAGUE CRUZ Report Released Date/Time: July 05, 2022 10:31 AM Reporting Lab: [facility] [place] [facility] [address] [facility] [address] Performing Lab: [facility] [place] [facility] [address] [facility] [address] [facility] [place] [facility] LIVER FUNCTION ALKALINE PHOSPHATASE [ENZYMATIC ACTIVITY/VO LUME] IN SERUM OR PLASMA 71 U/L 40 - 150 01/04 Specimen Type: SERUM No comment entered. Ordering Provider: MAGUE CRUZ Report Released Date/Time: July 05, 2022 10:31 AM Reporting Lab: [facility] [place] [facility] [address] [facility] [address] Performing Lab: [facility] [place] [facility] [address] [facility] [address] [facility] [place] [facility] LIVER FUNCTION ASPARTATE AMINOTRANSF ERASE [ENZYMATIC ACTIVITY/VO LUME] IN SERUM OR PLASMA 22 U/L 5 - 34 01/04 Specimen Type: SERUM No comment entered. Ordering Provider: MAGUE CRUZ Report Released Date/Time: July 05, 2022 10:31 AM Reporting Lab: [facility] [place] [facility] [address] [facility] [address] Performing Lab: [facility] [place] [facility] [address] [facility] [address] [facility] [facility] LIVER FUNCTION ALANINE AMINOTRANSF ERASE [ENZYMATIC ACTIVITY/VO LUME] IN SERUM OR PLASMA 37 U/L 01/04 Specimen Type: SERUM No comment entered. Ordering Provider: MAGUE CRUZ Report Released Date/Time: July 05, 2022 10:31 AM Reporting Lab: [facility] [place] [facility] [address] [facility] [address] Performing Lab: [facility] [place] [facility] [address] [facility] [address] [facility] [place] [facility] LIVER FUNCTION BILIRUBIN.T OTAL [MASS/VOLUM E] IN SERUM OR PLASMA 0.6 mg/dL 0.2 - 1.2 01/04 Specimen Type: SERUM No comment entered. Ordering Provider: MAGUE CRUZ Report Released Date/Time: July 05, 2022 10:31 AM Reporting Lab: [facility] [place] [facility] [address] [facility] [address] Performing Lab: [facility] [place] [facility] [address] [facility] [address] [facility] [facility] LIPID PANEL FASTING CHOLESTEROL [MASS/VOLUM E] IN SERUM OR PLASMA 169 mg/dL 01/04 Specimen Type: SERUM No comment entered. Ordering Provider: MAGUE CRUZ Report Released Date/Time: July 05, 2022 10:31 AM Reporting Lab: [facility] [place] [facility] [address] [facility] [address] Performing Lab: [facility] [place] [facility] [address] [facility] [address] [facility] LIPID PANEL FASTING TRIGLYCERID E [MASS/VOLUM E] IN SERUM OR PLASMA 92 mg/dL 0 - 150 01/04 Specimen Type: SERUM No comment entered. Ordering Provider: MAGUE CRUZ Report Released Date/Time: July 05, 2022 10:31 AM Reporting Lab: [facility] [place] [facility] [address] [facility] [address] Performing Lab: [facility] [place] [facility] [address] [facility] [address] [facility] [place] [facility] LIPID PANEL FASTING CHOLESTEROL IN LDL [MASS/VOLUM E] IN SERUM OR PLASMA BY CALCULATION 105 mg/dL 0 - 129 01/04 Specimen Type: SERUM No comment entered. Ordering Provider: MAGEU CRUZ Report Released Date/Time: July 05, 2022 10:31 AM Reporting Lab: [facility] [place] [facility] [address] [facility] [address] Performing Lab: [facility] [place] [facility] [address] [facility] [address] [facility] [place] [facility] LIPID PANEL FASTING CHOLESTEROL .TOTAL/CHOL ESTEROL IN HDL [MASS RATIO] IN SERUM OR PLASMA 3.7 01/04 Specimen Type: SERUM No comment entered. Ordering Provider: MAGUE CRUZ Report Released Date/Time: July 05, 2022 10:31 AM Reporting Lab: [facility] [place] [facility] [address] [facility] [address] Per[facility] Lab: [facility] [address] [facility] [address] [place] [facility] LIPID PANEL FASTING CHOLESTEROL IN HDL [MASS/VOLUM E] IN SERUM OR PLASMA 46 mg/dL 40 - 60 01/04 Specimen Type: SERUM No comment entered. Ordering Provider: MAGUE CRUZ Report Released Date/Time: July 05, 2022 10:31 AM Reporting [facility] [place] [facility] [address] [facility] [address] Performing Lab: [facility] [address] [facility] [address] [place] [employer] [facility] CBC AND DIFF (AUTO) LEUKOCYTES [#/VOLUME] IN BLOOD BY AUTOMATED COUNT 6.59 10*3/u L 4.50 - 11.00 01/04 Specimen Type: BLOOD No comment entered. Ordering Provider: MAGUE CRUZ Report Released Date/Time: July 05, 2022 10:31 AM Reporting Lab: [facility] [place] [facility] [address] [facility] [address] Performing Lab: [facility] [place] [facility] [address] [facility] [address] [address] CBC AND DIFF (AUTO) ERYTHROCYTE S [#/VOLUME] IN BLOOD BY AUTOMATED COUNT 5.31 10*6/u L 4.23 - 5.66 01/04 Specimen Type: BLOOD No comment entered. Ordering Provider: MAGUE CRUZ Report Released Date/Time: July 05, 2022 10:31 AM Reporting Lab: [facility] [place] [facility] [address] [facility] [address] Performing Lab: [facility] [place] [facility] [address] [facility] [address] [facility] CBC AND DIFF (AUTO) HEMOGLOBIN [MASS/VOLUM E] IN BLOOD 16.6 g/dL 12.8 - 17 01/04 Specimen Type: BLOOD No comment entered. Ordering Provider: MAGUE CRUZ Report Released Date/Time: July 05, 2022 10:31 AM Reporting Lab: [facility] [place] [facility] [address] [facility] [address] Performing Lab: [facility] [place] [facility] [address] [facility] [address] [facility] [place] CBC AND DIFF (AUTO) HEMATOCRIT [VOLUME FRACTION] OF BLOOD BY AUTOMATED COUNT 50.5 39.2 - 50.4 01/04 H Specimen Type: BLOOD No comment entered. Ordering Provider: MAGUE CRUZ Report Released Date/Time: July 05, 2022 10:31 AM Reporting Lab: [facility] [place] [facility] [address] [facility] [address] Performing Lab: [facility] [place] [facility] [address] [facility] [address] [facility] [place] CBC AND DIFF (AUTO) MCV [ENTITIC VOLUME] BY AUTOMATED COUNT 95.1 fL 82 - 99 01/04 Specimen Type: BLOOD No comment entered. Ordering Provider: MAGUE CRUZ Report Released Date/Time: July 05, 2022 10:31 AM Reporting Lab: [facility] [place] [facility] [address] [facility] [address] Performing Lab: [facility] [place] [facility] [address] [facility] [address] [facility] [place] CBC AND DIFF (AUTO) MCHC [MASS/VOLUM E] BY AUTOMATED COUNT 32.9 g/dL 30.8 - 35.1 01/04 Specimen Type: BLOOD No comment entered. Ordering Provider: MAGUE CRUZ Report Released Date/Time: July 05, 2022 10:31 AM Reporting Lab: [facility] [place] [facility] [address] [facility] [address] Performing Lab: [facility] [place] [facility] [address] [facility] [address] [facility] [place] [facility] CBC AND DIFF (AUTO) PLATELETS [#/VOLUME] IN BLOOD BY AUTOMATED COUNT 173 10*3/u L 140 - 360 01/04 Specimen Type: BLOOD No comment entered. Ordering Provider: MAGUE CRUZ Report Released Date/Time: July 05, 2022 10:31 AM Reporting Lab: [facility] [place] [address] [address] Performing Lab: [facility] [place] [facility] [address] [facility] [address] [facility] [place] [facility] CBC AND DIFF (AUTO) ERYTHROCYTE DISTRIBUTIO N WIDTH [RATIO] BY AUTOMATED COUNT 12.3 12.0 - 16.0 01/04 Specimen Type: BLOOD No comment entered. Ordering Provider: MAGUE CRUZ Report Released Date/Time: July 05, 2022 10:31 AM Reporting Lab: [facility] [place] [facility] [address] [facility] [address] Performing Lab: [facility] [place] [facility] [address] [facility] [address] [facility] [place] [facility] CBC AND DIFF (AUTO) MONOCYTES [#/VOLUME] IN BLOOD BY AUTOMATED COUNT 0.55 10*3/u L 0.30 - 1.10 01/04 Specimen Type: BLOOD No comment entered. Ordering Provider: MAGUE CRUZ Report Released Date/Time: July 05, 2022 10:31 AM Reporting Lab: [facility] [place] [facility] [address] [facility] [address] Performing Lab: [facility] [place] [facility] [address] [facility] [address] [facility] [place] CBC AND DIFF (AUTO) MCH [ENTITIC MASS] BY AUTOMATED COUNT 31.3 pg 26.2 - 32.6 01/04 Specimen Type: BLOOD No comment entered. Ordering Provider: MAGUE CRUZ Report Released Date/Time: July 05, 2022 10:31 AM Reporting Lab: [facility] [place] [facility] [address] [facility] [address] Performing Lab: [facility] [place] [facility] [address] [facility] [address] [facility] [place] [facility] CBC AND DIFF (AUTO) NEUTROPHILS /100 LEUKOCYTES IN BLOOD BY AUTOMATED COUNT 63.8 43.7 - 75.8 01/04 Specimen Type: BLOOD No comment entered. Ordering Provider: MAGUE CRUZ Report Released Date/Time: July 05, 2022 10:31 AM Reporting Lab: [facility] [place] [facility] [address] [facility] [address] Performing Lab: [facility] [place] [facility] [address] [facility] [address] [facility] [place] [facility] CBC AND DIFF (AUTO) LYMPHOCYTES /100 LEUKOCYTES IN BLOOD BY AUTOMATED COUNT 25.6 14.0 - 42.3 01/04 Specimen Type: BLOOD No comment entered. Ordering Provider: MAGUE CRUZ Report Released Date/Time: July 05, 2022 10:31 AM Reporting Lab: [facility] [place] [facility] [address] [facility] [address] Performing Lab: [facility] [place] [facility] [address] [facility] [address] [facility] [place] CBC AND DIFF (AUTO) MONOCYTES/1 00 LEUKOCYTES IN BLOOD BY AUTOMATED COUNT 8.3 5.1 - 13.7 01/04 Specimen Type: BLOOD No comment entered. Ordering Provider: MAGUE CRUZ Report Released Date/Time: July 05, 2022 10:31 AM Reporting Lab: [facility] [place] [facility] [address] [facility] [address] Performing Lab: [facility] [place] [facility] [address] [facility] [address] [facility] [place] CBC AND DIFF (AUTO) EOSINOPHILS /100 LEUKOCYTES IN BLOOD BY AUTOMATED COUNT 1.4 0.4 - 6.8 01/04 Specimen Type: BLOOD No comment entered. Ordering Provider: MAGUE CRUZ Report Released Date/Time: July 05, 2022 10:31 AM Reporting Lab: [facility] [place] [facility] [address] [facility] [address] Performing Lab: [facility] [place] [facility] [address] [facility] [address] [facility] [place] [facility] CBC AND DIFF (AUTO) BASOPHILS/1 00 LEUKOCYTES IN BLOOD BY AUTOMATED COUNT 0.6 0.1 - 2.0 01/04 Specimen Type: BLOOD No comment entered. Ordering Provider: MAGUE CRUZ Report Released Date/Time: July 05, 2022 10:31 AM Reporting Lab: [facility] [place] [facility] [address] [facility] [address] Performing Lab: [facility] [place] [facility] [address] [facility] [address] [facility] [place] [facility] CBC AND DIFF (AUTO) NEUTROPHILS [#/VOLUME] IN BLOOD BY AUTOMATED COUNT 4.20 10*3/u L 2.20 - 7.60 01/04 Specimen Type: BLOOD No comment entered. Ordering Provider: MAGUE CRUZ Report Released Date/Time: July 05, 2022 10:31 AM Reporting Lab: [facility] [place] [facility] [address] [facility] [address] Performing Lab: [facility] [place] [facility] [address] [facility] [address] [facility] [place] CBC AND DIFF (AUTO) LYMPHOCYTES [#/VOLUME] IN BLOOD BY AUTOMATED COUNT 1.69 10*3/u L 1.00 - 3.20 11/21 /2023 Specimen Type: BLOOD No comment entered. Ordering Provider: MAGUE CRUZ Report Released Date/Time: July 05, 2022 10:31 AM Reporting Lab: [facility] [place] [facility] [address] [facility] [address] Performing Lab: [facility] [place] [facility] [address] [facility] [address] [facility] [place] [facility] CBC AND DIFF (AUTO) EOSINOPHILS [#/VOLUME] IN BLOOD BY AUTOMATED COUNT 0.09 10*3/u L 0.03 - 0.44 01/04 Specimen Type: BLOOD No comment entered. Ordering Provider: MAGUE CRUZ Report Released Date/Time: July 05, 2022 10:31 AM Reporting Lab: [facility] [place] [facility] [address] [facility] [address] Performing Lab: [facility] [place] [facility] [address] [facility] [address] [facility] [place] [facility] CBC AND DIFF (AUTO) BASOPHILS [#/VOLUME] IN BLOOD BY AUTOMATED COUNT 0.04 10*3/u L 0.01 - 0.13 01/04 Specimen Type: BLOOD No comment entered. Ordering Provider: MAGUE CRUZ Report Released Date/Time: July 05, 2022 10:31 AM Reporting Lab: [facility] [place] [facility] [address] [facility] [address] Performing Lab: [facility] [place] [facility] [address] [facility] [address] [facility] [place] [facility] CBC AND DIFF (AUTO) IMMATURE GRANULOCYTE S/100 LEUKOCYTES IN BLOOD BY AUTOMATED COUNT 0.3 0.0 - 0.7 01/04 Specimen Type: BLOOD No comment entered. Ordering Provider: MAGUE CRUZ Report Released Date/Time: July 05, 2022 10:31 AM Reporting Lab: [facility] [place] [address] [address] Performing Lab: [facility] [place] [address] [address] [facility] [place] [facility] CBC AND DIFF (AUTO) IMMATURE GRANULOCYTE S [#/VOLUME] IN BLOOD 0.02 10*3/u L 0.00 - 0.06 01/04 Specimen Type: BLOOD No comment entered. Ordering Provider: MAGUE CRUZ Report Released Date/Time: July 05, 2022 10:31 AM Reporting Lab: [facility] [place] [facility] [address] [facility] [address] Performing Lab: [facility] [place] [facility] [address] [facility] [address] [facility] [place] [facility] LIPID PANEL FASTING CHOLESTEROL [MASS/VOLUM E] IN SERUM OR PLASMA 167 mg/dL 7 - 199 06/30 Specimen Type: SERUM No comment entered. Ordering Provider: MAGUE CRUZ Report Released Date/Time: May 07, 2022 09:34 AM Reporting Lab: [facility] [place] [facility] [address] [facility] [address] Performing Lab: [facility] [place] [facility] [address] [facility] [address] [facility] [place] [facility] LIPID PANEL FASTING TRIGLYCERID E [MASS/VOLUM E] IN SERUM OR PLASMA 85 mg/dL 0 - 150 06/30 Specimen Type: SERUM No comment entered. Ordering Provider: MAGUE CRUZ Report Released Date/Time: May 07, 2022 09:34 AM Reporting Lab: [facility] [place] [facility] [address] [facility] [address] Performing Lab: [facility] [place] [facility] [address] [facility] [address] [facility] [place] [facility] LIPID PANEL FASTING CHOLESTEROL IN LDL [MASS/VOLUM E] IN SERUM OR PLASMA BY CALCULATION 108 mg/dL 0 - 129 06/30 Specimen Type: SERUM No comment entered. Ordering Provider: MAGUE CRUZ Report Released Date/Time: May 07, 2022 09:34 AM Reporting Lab: [facility] [place] [facility] [address] [facility] [address] Performing Lab: [facility] [place] [facility] [address] [facility] [address] [facility] [place] [facility] LIPID PANEL FASTING CHOLESTEROL .TOTAL/CHOL ESTEROL IN HDL [MASS RATIO] IN SERUM OR PLASMA 4.0 06/30 Specimen Type: SERUM No comment entered. Ordering Provider: MAGUE CRUZ Report Released Date/Time: May 07, 2022 09:34 AM Reporting Lab: [facility] [place] [facility] [address] [facility] [address] Performing Lab: [facility] [place] [facility] [address] [facility] [address] [facility] [place] [facility] LIPID PANEL FASTING CHOLESTEROL IN HDL [MASS/VOLUM E] IN SERUM OR PLASMA 42 mg/dL 40 - 60 06/30 Specimen Type: SERUM No comment entered. Ordering Provider: MAGUE CRUZ Report Released Date/Time: May 07, 2022 09:34 AM Reporting Lab: [facility] [place] [facility] [address] [facility] [address] Performing Lab: [facility] [place] [facility] [address] [facility] [address] [facility] [place] [facility] Vital Signs Combined list of inpatient and outpatient Vital Signs from Department of Defense and Veterans Affairs, ranging from 12 months to all on record, depending upon the facility. Vital Sign Value Date Comments Source SYSTOLIC BLOOD PRESSURE 154 11/11/19 24 09:02:37 [facility] [place] [facility] DIASTOLIC BLOOD PRESSURE 90 024 09:02:37 [facility] [place] [facility] PULSE OXIMETRY 90 11/11/2023 09:02:37 [facility] [place] [facility] WEIGHT 265 11/11/2023 09:02:37 [facility] [place] [facility] BMI 37 kg/m2 11/11/2023 09:02:37 [facility] [place] [facility] PAIN 0 11/11/2023 09:02:37 [facility] [place] [facility] TEMPERATURE 98.7 11/11/2023 09:02:37 [facility] [id number] 01/05 [facility] [place] OFFICE O/P EST MOD 30-39 MIN [id number] Diagnos is: ICD-10- CM J43.2 Centril obular emphyse GORDON Bee MMED JAWED 01/12 [facility] [id number] 01/13 [facility] [place] En[facility] [id number] 01/14 [facility] [place] [facility] Outpatient Encounter [id number] Diagnos is: ICD-10- CM R91.8 Other nonspec ific abnorma l finding of lung field KARLA MCKAYN 01/14 [facility] En[facility] [id number] 01/14 [facility] CMPTR OPHTH IMG OPTIC NERVE [id number] Diagnos is: ICD-10- CM H40.013 Open angle with borderl ine finding s, low risk, bilater al CLAUDIA CAMARA 03/01 [facility] [place] [facility] COMPRE OPH EXAM EST PT 1/> [id number] Diagnos is: ICD-10- CM 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, upper and lower eyelids CLAUDIA CAMARA 03/01 [facility] FIT SPECTACLES MULTIFOCAL [id number] Diagnos is: ICD-10- CM Z46.0 Encount er for fit/adj st of spectac les and contact lenses CLAUDIA CAMARA 03/01 [facility] En[facility] [id number] 03/17 [facility] En[facility] [id number] 03/22 [facility] En[facility] [id number] 03/23 [facility] En[facility] [id number] 04/06 [facility] En[facility] [id number] 05/11 [facility] OFFICE O/P EST MOD 30 MIN [id number] Diagnos is: ICD-10- CM J43.2 Centril obular emphyse GORDON Bee MMED JAWED 05/11 [facility] QNHP OL DIG ASSMT&MGMT 11-20 [id number] Diagnos is: ICD-10- CM R91.1 Solitar y pulmona ry nodule SIGIFREDO GOMEZCA L 05/11 [facility] En[facility] [id number] 07/25 [facility] En[facility] [id number] 07/26 [facility] En[facility] [id number] 08/14 [facility] En[facility] [id number] 08/29 [facility] En[facility] [id number] 09/04 [facility] En[facility] [id number] 09/28 [facility] En[facility] [id number] 10/27 [facility] En[facility] [id number] 10/30 [facility] En[facility] [id number] 10/31 [facility] Encounter [id number] 11/06 [facility] OFFICE O/P EST HI 40 MIN [id number] 1. Diagnos is: ICD-10- CM J43.2 Centril obular emphyse ma ROSARIOLO,TI NA 11/10 [facility] En[facility] [id number] 11/10 [facility] [id number] 1.11/15 [facility] En[facility] [id number] [facility] Encounter [id number] 1.11/24 [facility] OFFICE O/P NEW MOD 45 MIN [id number] 1. Diagnos is: ICD-10- CM L57.0 Actinic keratos is ALECIA ESTEBAN 11/28 [facility] En[facility] [id number] 1.12/06 [facility] [id number] 1.01/03 [facility] [id number] 01/18 [facility] En[facility] [id number] 02/12 [facility] En[facility] [id number] 02/12 [facility] Encounter [id number] 02/21 [facility] OFFICE O/P EST MOD 30 MIN [id number] Diagnos is: ICD-10- CM L71.1 Rhinoph CLAUDIA Ceron 03/20 [facility] CPTRZD OPH DX IMG ANT SGM [id number] Diagnos is: ICD-10- CM H40.013 Open angle with borderl ine finding s, low risk, bilater al CLAUDIA CAMARA 03/20 [facility] [place] [facility] [place] FIT SPECTACLES MULTIFOCAL [id number] Diagnos is: ICD-10- CM Z46.0 Encount er for fit/adj st of spectac les and contact lenses CLAUDIA CAMARA 03/22 [facility] [place] [facility] Social History Combined list of available smoking, tobacco, and other social history from Department of Defense and Veterans Affairs facilities. Social History Type Response Date Comment Source Tobacco smoking status WYIS NE-TOBACCO USER EVERY DAY 01/12/2023 [facility] [place] [facility] History of tobacco use NE-TOBACCO USE 30 YEARS OR MORE 01/12/2023 [facility] [place] [facility] History of tobacco use NE-TOBACCO USER EVERY DAY 10/23/2021 [facility] [place] [facility] History of tobacco use NE-TOBACCO USER EVERY DAY 10/29/2020 [facility] [place] [facility] History of tobacco use NE-TOBACCO FORMER USER 10/10/2019 [facility] [place] [facility]26[facility]2018 [facility] [place] [facility] History of tobacco use CURRENT SMOKER 08/04/2017 [facility] [place] [facility] History of tobacco use QUIT TOBACCO USE IN PAST YEAR 01/31/2017 31 days [facility] [place] [facility] History of tobacco use CURRENT SMOKER 01/26/2016 [facility] [place] [facility] History of tobacco use QUIT TOBACCO USE IN PAST YEAR 02/20/2015 [facility] [place] [facility] History of tobacco use CURRENT SMOKER 06/17/2014 Reports being an off and on smoker -cigarette s [facility] [place] [facility] History of tobacco use CURRENT SMOKER 09/14/2011 less than a pack a day [facility] [place] [facility] History of tobacco use CURRENT SMOKER 03/09/2010 1 ppd [facility] [place] [facility] History of tobacco use V1-PT DECLINES TOBACCO CESSATION MEDS 09/29/2009 [facility] History of tobacco use CURRENT SMOKER 01/29/2009 1 ppd [facility] History of tobacco use CURRENT SMOKER 03/17/2005 [facility] Plan of Care List of future care activities from [facility] facilities. Additional future care activities may be listed in the Assessment and Plan section. Date/Time Care Activity Care Activity Detail Facili ty 05/10/2024 AMBULATORY - NONE AMBULATORY - NONE [facility] 05/10/2024 AMBULATORY - MEDICINE AMBULATORY - MEDICI NE [facility] 05/10/2024 Imaging - CT Scan Order LDCT MIN G CANCER SCREENING [facility] Advance Directives List of completed, amended, or rescinded Advance Directives on record at [facility] facilities. An actual copy of the Directive is not included. Date Advance Directive Provider Source 11/11/2023 [facility] DIRECTIVE [facility]
== END 2024-04-12 13:57 | disposition home or self-care (01) ==
LOC: HO.HUSH 12:37
PROVIDERS: PCP Internal Medicine; Visit Provider Urology
DX: N40.0 Benign prostatic hyperplasia without lower urinary tract symptoms (principal); N40.1 Benign prostatic hyperplasia with lower urinary tract symptoms; R33.9 Retention of urine, unspecified
CPT/HCPCS: 99214

== ENCOUNTER → 2024-04-12 12:37 | Outpatient (BNVA) | payer OTHER, SELFPAY | PROVIDERS: PCP Internal Medicine; Visit Provider Urology | DX: N40.1 Benign prostatic hyperplasia with lower urinary tract symptoms (principal); R33.9 Retention of urine, unspecified | CPT/HCPCS: 99212 ==

== ENCOUNTER 2024-04-18 09:56 | Outpatient (REF) | payer OTHER, SELFPAY ==
--- OUTSIDE RECORDS SUMMARY | 2024-04-18 11:42 | XMS_ITS | Continuity of Care Document ---
Author Name [facility] Organization [facility] Care Team Providers Care Pin Puller Name Role Phone [facility] Unavailable Unavailable Problems Combined list of problems from Department of Defense and Veterans Affairs facilities. It does not include entries that were removed or entered in error. Problem Status Onset Date Problem Type Date of Resolution Comments Source Hemochromatosis (SNOMED CT 481202843) Active 02/14/18 96 Condition Nov 11, 2023 Entered By: PRINCESS RAMON Comment: keep HCT <16, ferritin <200. phlebot[place] at [facility] [place] changed to every other month, 450cc [facility] Benign prostatic hyperplasia Active Condition [facility] Centriacinar emphysema Active Condition [facility] Depressive Disorder NEC (ICD-9-CM 311.) Active Condition [facility] Elevated Prostate Specific Antigen (PSA) (ICD-9-CM 790.93) Active Condition [facility] Erectile dysfunction (SNOMED CT 651809656) Active Condition [facility] Hemochromatosis Active Condition [facility] Impacted cerumen * (ICD-9-CM 380.4) Active Condition [facility] Impaired fasting glucose Active Condition [facility] Nicotine dependence (SNOMED CT 07105786) Active Condition [facility] [...] finding of lung field Active Diagnosis [facility] Medications Combined list of outpatient medications from [...] G RESPIR ATORY (INHAL ATION) ACTIVE 11/25/2024 [id number] FURCOLO,T PATY 2023 3 [facility] ALBUTEROL 90MCG/ACTUA T (CFC-F) INHL,ORAL,8 .5GM DOSE COUNTER INHALE 2 PUFFS BY MOUTH FOUR TIMES DAILY NEEDED FOR BREATHIN G RESPIR ATORY (INHAL ATION) DISCONT INUED 08/16/2024 [id number] 4 FURCOLO,T PATY 2023 1 [facility] ALBUTEROL 90MCG/ACTUA T (CFC-F) INHL,ORAL,8 .5GM DOSE COUNTER INHALE 2 PUFFS BY MOUTH FOUR TIMES DAILY NEEDED FOR BREATHIN G RESPIR ATORY (INHAL ATION) DISCONT INUED 07/06/2023 [id number] 4 [facility] CARBOXYMETH YLCELLULOSE NA 0.5% SOLN,OPH INSTILL 1 DROP INTO EACH EYE FOUR TIMES DAILY NEEDED FOR DRY EYE OPHTHA LMIC 03/01/2024 [id number] Jas CAMARA ICHELE 2023 45 [facility] FINASTERIDE 5MG TAB TAKE ONE TABLET BY MOUTH ONCE DAILY FOR PROSTATE ORAL ACTIVE 02/13/2025 [id number] 4 FURCOLO,T PATY 2023 90 [facility] FINASTERIDE 5MG TAB TAKE ONE TABLET BY MOUTH ONCE DAILY FOR PROSTATE ORAL DISCONT INUED 01/13/2024 [id number] 4 [facility] [place] [facility] 2022 90 [facility] FLUTICASONE 250MCG/SALM ETEROL 50MCG INHL,ORAL,D ISKUS,60 INHALE 1 PUFF BY MOUTH TWICE DAILY FOR BREATHIN G - RINSE MOUTH AFTER USE RESPIR ATORY (INHAL ATION) ACTIVE 08/16/2024 [id number] 5 FURCOLO,T PATY 2023 1 [facility] FLUTICASONE 250MCG/SALM ETEROL 50MCG INHL,ORAL,D ISKUS,60 INHALE 1 PUFF BY MOUTH TWICE DAILY FOR BREATHIN G - RINSE MOUTH AFTER USE RESPIR ATORY (INHAL ATION) DISCONT INUED 01/13/2024 [id number] 4 [facility] [place] [facility] [place] [facility] [place] 2022 1 [facility] LIDOCAINE 5% PATCH APPLY 1 PATCH TOPICALL Y ONCE DAILY FOR NERVE PAIN (LEAVE PATCH ON FOR 12 HOURS, THEN REMOVE PATCH) TOPICA L ACTIVE 11/11/2024 [id number] FURCOLO,T PATY 2023 90 [facility] TAMSULOSIN HCL 0.4MG CAP TAKE ONE CAPSULE BY MOUTH AT BEDTIME ORAL ACTIVE 08/16/2024 [id number] 4 FURCOLO,T PATY 2023 90 [facility] TAMSULOSIN HCL 0.4MG CAP TAKE ONE CAPSULE BY MOUTH AT BEDTIME ORAL DISCONT INUED 01/13/2024 [id number] 4 DK CRUZ JAWED 2022 90 [facility] THEOPHYLLIN E 400MG 24HR TAB,SA TAKE ONE TABLET BY MOUTH ONCE DAILY ORAL DISCONT INUED BY PROVIDE R 04/06/2024 [id number] [place] MIGUEL BARBARA 2023 30 [facility] TIOTROPIUM 2.5MCG/ACTU AT INHL,ORAL,6 0D,4GM INHALE 2 PUFFS BY MOUTH ONCE DAILY RESPIR ATORY (INHAL ATION) ACTIVE 08/16/2024 [id number] 5 FURCOLO,T PATY 2023 1 [facility] TIOTROPIUM 2.5MCG/ACTU AT INHL,ORAL,6 0D,4GM INHALE 2 PUFFS BY MOUTH ONCE DAILY RESPIR ATORY (INHAL ATION) DISCONT INUED 01/13/2024 [id number] 4 DK CRUZ JAWED 2022 1 [facility] Allergies, Adverse Reactions, Alerts Combined list of allergies from Department of Defense and Veterans Affairs facilities. It does not include entries that were removed or entered in error. Substance Category Reaction Severity Reaction type Status Date Reported Comments Source CHANTIX Propensity to adverse reactions to drug (finding) Anxiety active 0 [facility] [place] Immunizations Combined list of available immunizations from the Department of Defense and Veterans Affairs facilities. 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 Comments Source INFLUENZA, HIGH-DOSE, QUADRIVALENT 2022 PELON ESPINOSA LEFT DELTO ID [id number] A 197 complet ed [facility] INFLUENZA VACCINE, QUADRIVALENT, ADJUVANTED 2021 205 complet ed [facility] ZOSTER RECOMBINANT 2 2021 187 complet ed [facility] COVID-19 (MODERNA), MRNA, LNP-S, PF, 100 MCG OR 50 MCG DOSE 3 2020 207 complet ed MOD; [id number]; 2 [facility] [...] DOSE 2 2020 207 complet ed MOD; [id number]; 1 [facility] COVID-19 (MODERNA), MRNA, LNP-S, PF, 100 MCG/0.5 ML DOSE 1 2020 207 complet ed MOD; [id number]; 1 [facility] [...] Nov 01, 2023 12:47 PM Reporting Lab: [facility] [place] [facility] [address] [facility] [address] Performing Lab: [facility] [place] [address] [address] [facility] [facility] IRON & TIBC PANEL IRON BINDING CAPACITY [MASS/VOLUM E] IN SERUM OR PLASMA 268 ug/dL 204 - 475 11/02 Specimen Type: SERUM No comment entered. Ordering Provider: RADHA RAMON Report Released Date/Time: Nov 01, 2023 12:47 PM Reporting Lab: [facility] [place] [facility] [address] [facility] [address] Performing Lab: [facility] [place] [facility] [address] [facility] [address] [facility] IRON & TIBC PANEL IRON [MASS/VOLUM E] IN SERUM OR PLASMA 195 ug/dL 40 - 160 11/02 H Specimen Type: SERUM No comment entered. Ordering Provider: RADHA RAMON Report Released Date/Time: Nov 01, 2023 12:47 PM Reporting Lab: [facility] [place] [facility] [address] [facility] [address] Performing Lab: [facility] [place] [address] [address] [facility] IRON & TIBC PANEL IRON/IRON BINDING CAPACITY.TO KEVIN [MASS RATIO] IN SERUM OR PLASMA 72.8 20.0 - 50.0 11/02 H Specimen Type: SERUM No comment entered. Ordering Provider: RADHA RAMON Report Released Date/Time: Nov 01, 2023 12:47 PM Reporting Lab: [facility] [place] [facility] [address] [facility] [address] Performing Lab: [facility] [address] [facility] [address] [facility] IRON & TIBC PANEL TRANSFERRIN [MASS/VOLUM E] IN SERUM OR PLASMA 203 mg/dL 200 - 360 11/02 Specimen Type: SERUM No comment entered. Ordering Provider: RADHA RAMON Report Released Date/Time: Nov 01, 2023 12:47 PM Reporting Lab: [facility] [address] Performing Lab: [facility] [address] [facility] LIVER FUNCTION PROTEIN [MASS/VOLUM E] IN SERUM OR PLASMA 6.4 g/dL 6.0 - 8.3 11/02 Specimen Type: SERUM No comment entered. Ordering Provider: RADHA RAMON Report Released Date/Time: Nov 01, 2023 12:47 PM Reporting Lab: [facility] [address] [address] Performing Lab: [facility] [address] [facility] [address] [facility] LIVER FUNCTION ALBUMIN [MASS/VOLUM E] IN SERUM OR PLASMA 4.1 g/dL 3.5 - 5.0 11/02 Specimen Type: SERUM No comment entered. Ordering Provider: RADHA RAMON Report Released Date/Time: Nov 01, 2023 12:47 PM Reporting Lab: [facility] [address] Performing Lab: [facility] [address] [facility] LIVER FUNCTION ALKALINE PHOSPHATASE [ENZYMATIC ACTIVITY/VO LUME] IN SERUM OR PLASMA 75 U/L 40 - 150 11/02 Specimen Type: SERUM No comment entered. Ordering Provider: RADHA RAMON Report Released Date/Time: Nov 01, 2023 12:47 PM Reporting Lab: [facility] [place] [facility] [address] [facility] [address] Performing Lab: [facility] [address] [facility] [address] [facility] [facility] LIVER FUNCTION ASPARTATE AMINOTRANSF ERASE [ENZYMATIC ACTIVITY/VO LUME] IN SERUM OR PLASMA 22 U/L 5 - 34 11/02 Specimen Type: SERUM No comment entered. Ordering Provider: RADHA RAMON Report Released Date/Time: Nov 01, 2023 12:47 PM Reporting Lab: [facility] [place] [facility] [address] [facility] [address] Performing Lab: [facility] [place] [facility] [address] [facility] [address] [facility] LIVER FUNCTION ALANINE AMINOTRANSF ERASE [ENZYMATIC ACTIVITY/VO LUME] IN SERUM OR PLASMA 35 U/L 11/02 Specimen Type: SERUM No comment entered. Ordering Provider: RADHA RAMON Report Released Date/Time: Nov 01, 2023 12:47 PM Reporting Lab: [facility] [place] [facility] [address] [facility] [address] Performing Lab: [facility] [place] [facility] [address] [facility] [address] [facility] LIVER FUNCTION BILIRUBIN.T OTAL [MASS/VOLUM E] IN SERUM OR PLASMA 0.6 mg/dL 0.2 - 1.2 11/02 Specimen Type: SERUM No comment entered. Ordering Provider: RADHA RAMON Report Released Date/Time: Nov 01, 2023 12:47 PM Reporting Lab: [facility] [place] [facility] [address] [facility] [address] Performing Lab: [facility] [place] [facility] [address] [facility] [address] [facility] CBC LEUKOCYTES [#/VOLUME] IN BLOOD BY AUTOMATED COUNT 7.31 10*3/u L 4.50 - 11.00 11/02 Specimen Type: BLOOD No comment entered. Ordering Provider: RADHA RAMON Report Released Date/Time: Nov 01, 2023 12:47 PM Reporting Lab: [facility] [address] [facility] [address] Performing Lab: [facility] [place] [facility] [address] [facility] [address] [facility] CBC ERYTHROCYTE S [#/VOLUME] IN BLOOD BY AUTOMATED COUNT 5.14 10*6/u L 4.23 - 5.66 11/02 Specimen Type: BLOOD No comment entered. Ordering Provider: RADHA RAMON Report Released Date/Time: Nov 01, 2023 12:47 PM Reporting Lab: [facility] [place] [facility] [address] [facility] [address] Performing Lab: [facility] [place] [facility] [address] [facility] [address] [facility] CBC HEMOGLOBIN [MASS/VOLUM E] IN BLOOD 16.5 g/dL 12.8 - 17 11/02 Specimen Type: BLOOD No comment entered. Ordering Provider: RADHA RAMON Report Released Date/Time: Nov 01, 2023 12:47 PM Reporting Lab: [facility] [place] [facility] [address] [facility] [address] Performing Lab: [facility] [place] [facility] [address] [facility] [address] [facility] [place] [facility] CBC HEMATOCRIT [VOLUME FRACTION] OF BLOOD BY AUTOMATED COUNT 49.0 39.2 - 50.4 11/02 Specimen Type: BLOOD No comment entered. Ordering Provider: RADHA RAMON Report Released Date/Time: Nov 01, 2023 12:47 PM Reporting Lab: [facility] [place] [facility] [address] [facility] [address] Performing Lab: [facility] [address] [facility] [address] [facility] [facility] CBC MCV [ENTITIC VOLUME] BY AUTOMATED COUNT 95.3 fL 82 - 99 11/02 Specimen Type: BLOOD No comment entered. Ordering Provider: RADHA RAMON Report Released Date/Time: Nov 01, 2023 12:47 PM Reporting Lab: [facility] [address] [facility] [address] Performing Lab: [facility] [address] [facility] [address] [facility] [place] [facility] CBC MCHC [MASS/VOLUM E] BY AUTOMATED COUNT 33.7 g/dL 30.8 - 35.1 11/02 Specimen Type: BLOOD No comment entered. Ordering Provider: RADHA RAMON Report Released Date/Time: Nov 01, 2023 12:47 PM Reporting Lab: [facility] [address] [facility] [address] Performing Lab: [facility] [facility] [address] [facility] [address] [facility] [place] [facility] CBC PLATELETS [#/VOLUME] IN BLOOD BY AUTOMATED COUNT 182 10*3/u L 140 - 360 11/02 Specimen Type: BLOOD No comment entered. Ordering Provider: RADHA RAMON Report Released Date/Time: Nov 01, 2023 12:47 PM Reporting Lab: [facility] [place] [facility] [address] [facility] [address] Performing Lab: [facility] [facility] [address] [facility] [address] [facility] [place] [facility] CBC ERYTHROCYTE DISTRIBUTIO N WIDTH [RATIO] BY AUTOMATED COUNT 12.3 12.0 - 16.0 11/02 Specimen Type: BLOOD No comment entered. Ordering Provider: RADHA RAMON Report Released Date/Time: Nov 01, 2023 12:47 PM Reporting Lab: [facility] [place] [facility] [address] [facility] [address] Performing Lab: [facility] [place] [facility] [address] [facility] [address] [facility] CBC MCH [ENTITIC MASS] BY AUTOMATED COUNT 32.1 pg 26.2 - 32.6 11/02 Specimen Type: BLOOD No comment entered. Ordering Provider: RADHA RAMON Report Released Date/Time: Nov 01, 2023 12:47 PM Reporting Lab: [facility] [place] [facility] [address] [facility] [address] Performing Lab: [facility] [place] [facility] [address] [facility] [address] [facility] FERRITIN FERRITIN [MASS/VOLUM E] IN SERUM OR PLASMA 205 ng/mL 20 - 300 01/04 Specimen Type: SERUM No comment entered. Ordering Provider: MAGUE CRUZ Report Released Date/Time: July 05, 2022 10:31 AM Reporting Lab: [facility] [place] [facility] [address] [facility] [address] Performing Lab: [facility] [place] [facility] [address] [facility] [address] [facility] [place] BASIC METABOLIC PANEL (fasting) UREA NITROGEN [MASS/VOLUM E] IN SERUM OR PLASMA 14 mg/dL 7 - 25 01/04 Specimen Type: SERUM No comment entered. Ordering Provider: MAGUE CRUZ Report Released Date/Time: July 05, 2022 10:31 AM Reporting Lab: [facility] [place] [facility] [address] [facility] [address] Performing Lab: [facility] [place] [facility] [address] [facility] [address] [facility] [facility] BASIC METABOLIC PANEL (fasting) GLUCOSE [MASS/VOLUM E] IN SERUM OR PLASMA 108 mg/dL 65 - 100 01/04 H Specimen Type: SERUM No comment entered. Ordering Provider: MAGUE CRUZ Report Released Date/Time: July 05, 2022 10:31 AM Reporting Lab: [facility] [place] [facility] [address] [facility] [address] Performing Lab: [facility] [place] [facility] [address] [facility] [address] [facility] [facility] BASIC METABOLIC PANEL (fasting) SODIUM [MOLES/VOLU ME] IN SERUM OR PLASMA 142 mmol/L 135 - 145 01/04 Specimen Type: SERUM No comment entered. Ordering Provider: MAGUE CRUZ Report Released Date/Time: July 05, 2022 10:31 AM Reporting Lab: [facility] [place] [facility] [address] [facility] [address] Performing Lab: [facility] [place] [facility] [address] [facility] [address] [facility] [place] [facility] BASIC METABOLIC PANEL (fasting) POTASSIUM [MOLES/VOLU ME] IN SERUM OR PLASMA 4.3 mmol/L 3.5 - 5.0 01/04 Specimen Type: SERUM No comment entered. Ordering Provider: MAGUE CRUZ Report Released Date/Time: July 05, 2022 10:31 AM Reporting Lab: [facility] [place] [facility] [address] [facility] [address] Performing Lab: [facility] [place] [facility] [address] [facility] [address] [facility] [place] [facility] BASIC METABOLIC PANEL (fasting) CHLORIDE [MOLES/VOLU ME] IN SERUM OR PLASMA 103 mmol/L 100 - 110 01/04 Specimen Type: SERUM No comment entered. Ordering Provider: MAGUE CRUZ Report Released Date/Time: July 05, 2022 10:31 AM Reporting Lab: [facility] [place] [facility] [address] [facility] [address] Performing Lab: [facility] [place] [facility] [address] [facility] [address] [facility] [place] [facility] BASIC METABOLIC PANEL (fasting) CARBON DIOXIDE, TOTAL [MOLES/VOLU ME] IN SERUM OR PLASMA 31 meq/L 20 - 30 01/04 H Specimen Type: SERUM No comment entered. Ordering Provider: MAGUE CRUZ Report Released Date/Time: July 05, 2022 10:31 AM Reporting Lab: [facility] [place] [facility] [address] [facility] [address] Performing Lab: [facility] [place] [facility] [address] [facility] [address] [facility] BASIC METABOLIC PANEL (fasting) CREATININE [MASS/VOLUM E] IN SERUM OR PLASMA 0.95 mg/dL 0.50 - 1.40 01/04 Specimen Type: SERUM No comment entered. Ordering Provider: MAGUE CRUZ Report Released Date/Time: July 05, 2022 10:31 AM Reporting Lab: [facility] [place] [address] [address] Performing Lab: [facility] [place] [address] [address] [facility] [place] BASIC METABOLIC PANEL (fasting) GLOMERULAR FILTRATION RATE/1.73 SQ M.PREDICTED [VOLUME RATE/AREA] IN SERUM, PLASMA OR BLOOD BY CREATININE- BASED FORMULA (CKD-EPI 2020) 84 mL/min 60 01/04 Specimen Type: SERUM No comment entered. Ordering Provider: MAGUE CRUZ Report Released Date/Time: July 05, 2022 10:31 AM Reporting Lab: [facility] [place] [address] [address] Performing Lab: [facility] [place] [facility] [address] [facility] [address] [facility] [place] LIVER FUNCTION PROTEIN [MASS/VOLUM E] IN SERUM OR PLASMA 6.4 g/dL 6.0 - 8.3 01/04 Specimen Type: SERUM No comment entered. Ordering Provider: MAGUE CRUZ Report Released Date/Time: July 05, 2022 10:31 AM Reporting Lab: [facility] [place] [address] [address] Performing Lab: [facility] [place] [facility] [address] [facility] [address] [facility] [place] [facility] LIVER FUNCTION ALBUMIN [MASS/VOLUM E] IN SERUM OR PLASMA 4.0 g/dL 3.5 - 5.0 01/04 Specimen Type: SERUM No comment entered. Ordering Provider: MAGUE CRUZ Report Released Date/Time: July 05, 2022 10:31 AM Reporting Lab: [facility] [place] [facility] [address] [facility] [address] Performing Lab: [facility] [place] [facility] [address] [facility] [address] [facility] [place] [facility] LIVER FUNCTION ALKALINE PHOSPHATASE [ENZYMATIC ACTIVITY/VO LUME] IN SERUM OR PLASMA 71 U/L 40 - 150 01/04 Specimen Type: SERUM No comment entered. Ordering Provider: MAGUE CRUZ Report Released Date/Time: July 05, 2022 10:31 AM Reporting Lab: [facility] [address] [facility] [address] Performing Lab: [facility] [place] [facility] [address] [facility] [address] [facility] [place] [facility] LIVER FUNCTION ASPARTATE AMINOTRANSF ERASE [ENZYMATIC ACTIVITY/VO LUME] IN SERUM OR PLASMA 22 U/L 5 - 34 01/04 Specimen Type: SERUM No comment entered. Ordering Provider: MAGUE CRUZ Report Released Date/Time: July 05, 2022 10:31 AM Reporting Lab: [facility] [address] [facility] [address] Performing Lab: [facility] [place] [facility] [address] [facility] [address] [facility] LIVER FUNCTION ALANINE AMINOTRANSF ERASE [ENZYMATIC ACTIVITY/VO LUME] IN SERUM OR PLASMA 37 U/L 01/04 Specimen Type: SERUM No comment entered. Ordering Provider: MAGUE CRUZ Report Released Date/Time: July 05, 2022 10:31 AM Reporting Lab: [facility] [place] [facility] [address] [facility] [address] Performing Lab: [facility] [place] [facility] [address] [facility] [address] [facility] [place] LIVER FUNCTION BILIRUBIN.T OTAL [MASS/VOLUM E] IN SERUM OR PLASMA 0.6 mg/dL 0.2 - 1.2 01/04 Specimen Type: SERUM No comment entered. Ordering Provider: MAGUE CRUZ Report Released Date/Time: July 05, 2022 10:31 AM Reporting Lab: [facility] [place] [facility] [address] [facility] [address] Performing Lab: [facility] [place] [facility] [address] [facility] [address] [facility] LIPID PANEL FASTING CHOLESTEROL [MASS/VOLUM E] IN SERUM OR PLASMA 169 mg/dL 01/04 Specimen Type: SERUM No comment entered. Ordering Provider: MAGUE CRUZ Report Released Date/Time: July 05, 2022 10:31 AM Reporting Lab: [facility] [place] [facility] [address] [facility] [address] Performing Lab: [facility] [place] [facility] [address] [facility] [address] [facility] LIPID PANEL FASTING TRIGLYCERID E [MASS/VOLUM E] IN SERUM OR PLASMA 92 mg/dL 0 - 150 01/04 Specimen Type: SERUM No comment entered. Ordering Provider: MAGUE CRUZ Report Released Date/Time: July 05, 2022 10:31 AM Reporting Lab: [facility] [place] [facility] [address] [facility] [address] Performing Lab: [facility] [place] [facility] [address] [facility] [address] [facility] [place] [facility] LIPID PANEL FASTING CHOLESTEROL IN LDL [MASS/VOLUM E] IN SERUM OR PLASMA BY CALCULATION 105 mg/dL 0 - 129 01/04 Specimen Type: SERUM No comment entered. Ordering Provider: MAGUE CRUZ Report Released Date/Time: July 05, 2022 10:31 AM Reporting Lab: [facility] [place] [facility] [address] [facility] [address] Performing Lab: [facility] [place] [facility] [address] [facility] [address] [facility] [place] [facility] LIPID PANEL FASTING CHOLESTEROL .TOTAL/CHOL ESTEROL IN HDL [MASS RATIO] IN SERUM OR PLASMA 3.7 01/04 Specimen Type: SERUM No comment entered. Ordering Provider: MAGUE CRUZ Report Released Date/Time: July 05, 2022 10:31 AM Reporting Lab: [facility] [facility] [address] [facility] [address] Performing Lab: [facility] [address] [facility] [address] [facility] LIPID PANEL FASTING CHOLESTEROL IN HDL [MASS/VOLUM E] IN SERUM OR PLASMA 46 mg/dL 40 - 60 01/04 Specimen Type: SERUM No comment entered. Ordering Provider: MAGUE CRUZ Report Released Date/Time: July 05, 2022 10:31 AM Reporting Lab: [facility] [address] [facility] [address] Performing Lab: [facility] [address] [facility] [address] [facility] CBC AND DIFF (AUTO) LEUKOCYTES [#/VOLUME] IN BLOOD BY AUTOMATED COUNT 6.59 10*3/u L 4.50 - 11.00 01/04 Specimen Type: BLOOD No comment entered. Ordering Provider: MAGUE CRUZ Report Released Date/Time: July 05, 2022 10:31 AM Reporting Lab: [facility] [address] [facility] [address] Performing Lab: [facility] [address] [facility] [address] [facility] CBC AND DIFF (AUTO) ERYTHROCYTE S [#/VOLUME] IN BLOOD BY AUTOMATED COUNT 5.31 10*6/u L 4.23 - 5.66 01/04 Specimen Type: BLOOD No comment entered. Ordering Provider: MAGUE CRUZ Report Released Date/Time: July 05, 2022 10:31 AM Reporting Lab: [facility] [address] [facility] [address] Performing Lab: [facility] [address] [facility] [address] [facility] CBC AND DIFF (AUTO) HEMOGLOBIN [MASS/VOLUM E] IN BLOOD 16.6 g/dL 12.8 - 17 01/04 Specimen Type: BLOOD No comment entered. Ordering Provider: MAGUE CRUZ Report Released Date/Time: July 05, 2022 10:31 AM Reporting Lab: [facility] [address] [facility] [address] Performing Lab: [facility] [address] [facility] [address] [facility] CBC AND DIFF (AUTO) HEMATOCRIT [VOLUME FRACTION] OF BLOOD BY AUTOMATED COUNT 50.5 39.2 - 50.4 01/04 H Specimen Type: BLOOD No comment entered. Ordering Provider: MAGUE CRUZ Report Released Date/Time: July 05, 2022 10:31 AM Reporting Lab: [facility] [address] [facility] [address] Performing Lab: [facility] [address] [facility] [address] [facility] CBC AND DIFF (AUTO) MCV [ENTITIC VOLUME] BY AUTOMATED COUNT 95.1 fL 82 - 99 01/04 Specimen Type: BLOOD No comment entered. Ordering Provider: MAGUE CRUZ Report Released Date/Time: July 05, 2022 10:31 AM Reporting Lab: [facility] [address] [facility] [address] Performing Lab: [facility] [address] [facility] [address] [facility] CBC AND DIFF (AUTO) MCHC [MASS/VOLUM E] BY AUTOMATED COUNT 32.9 g/dL 30.8 - 35.1 01/04 Specimen Type: BLOOD No comment entered. Ordering Provider: MAGUE CRUZ Report Released Date/Time: July 05, 2022 10:31 AM Reporting Lab: [facility] [address] [facility] [address] Performing Lab: [facility] [address] [facility] [address] [facility] CBC AND DIFF (AUTO) PLATELETS [#/VOLUME] IN BLOOD BY AUTOMATED COUNT 173 10*3/u L 140 - 360 01/04 Specimen Type: BLOOD No comment entered. Ordering Provider: MAGUE CRUZ Report Released Date/Time: July 05, 2022 10:31 AM Reporting Lab: [facility] [place] [address] [address] Performing Lab: [facility] [address] [facility] [address] [facility] CBC AND DIFF (AUTO) ERYTHROCYTE DISTRIBUTIO N WIDTH [RATIO] BY AUTOMATED COUNT 12.3 12.0 - 16.0 01/04 Specimen Type: BLOOD No comment entered. Ordering Provider: MAGUE CRUZ Report Released Date/Time: July 05, 2022 10:31 AM Reporting Lab: [facility] [address] [facility] [address] Performing Lab: [facility] [address] [facility] [address] [facility] CBC AND DIFF (AUTO) MONOCYTES [#/VOLUME] IN BLOOD BY AUTOMATED COUNT 0.55 10*3/u L 0.30 - 1.10 01/04 Specimen Type: BLOOD No comment entered. Ordering Provider: MAGUE CRUZ Report Released Date/Time: July 05, 2022 10:31 AM Reporting Lab: [facility] [address] [facility] [address] Performing Lab: [facility] [address] [facility] [address] [facility] CBC AND DIFF (AUTO) MCH [ENTITIC MASS] BY AUTOMATED COUNT 31.3 pg 26.2 - 32.6 01/04 Specimen Type: BLOOD No comment entered. Ordering Provider: MAGUE CRUZ Report Released Date/Time: July 05, 2022 10:31 AM Reporting Lab: [facility] [address] [facility] [address] Performing Lab: [facility] [address] [facility] [address] [facility] CBC AND DIFF (AUTO) NEUTROPHILS /100 LEUKOCYTES IN BLOOD BY AUTOMATED COUNT 63.8 43.7 - 75.8 01/04 Specimen Type: BLOOD No comment entered. Ordering Provider: MAGUE CRUZ Report Released Date/Time: July 05, 2022 10:31 AM Reporting Lab: [facility] [address] [facility] [address] Performing Lab: [facility] [address] [facility] [address] [facility] CBC AND DIFF (AUTO) LYMPHOCYTES /100 LEUKOCYTES IN BLOOD BY AUTOMATED COUNT 25.6 14.0 - 42.3 01/04 Specimen Type: BLOOD No comment entered. Ordering Provider: MAGUE CRUZ Report Released Date/Time: July 05, 2022 10:31 AM Reporting Lab: [facility] [address] [facility] [address] Performing Lab: [facility] [address] [facility] [address] [facility] CBC AND DIFF (AUTO) MONOCYTES/1 00 LEUKOCYTES IN BLOOD BY AUTOMATED COUNT 8.3 5.1 - 13.7 01/04 Specimen Type: BLOOD No comment entered. Ordering Provider: MAGUE CRUZ Report Released Date/Time: July 05, 2022 10:31 AM Reporting Lab: [facility] [address] [facility] [address] Performing Lab: [facility] [address] [facility] [address] [facility] CBC AND DIFF (AUTO) EOSINOPHILS /100 LEUKOCYTES IN BLOOD BY AUTOMATED COUNT 1.4 0.4 - 6.8 01/04 Specimen Type: BLOOD No comment entered. Ordering Provider: MAGUE CRUZ Report Released Date/Time: July 05, 2022 10:31 AM Reporting Lab: [facility] [address] [facility] [address] Performing Lab: [facility] [address] [facility] [address] [facility] CBC AND DIFF (AUTO) BASOPHILS/1 00 LEUKOCYTES IN BLOOD BY AUTOMATED COUNT 0.6 0.1 - 2.0 01/04 Specimen Type: BLOOD No comment entered. Ordering Provider: MAGUE CRUZ Report Released Date/Time: July 05, 2022 10:31 AM Reporting Lab: [facility] [address] [facility] [address] Performing Lab: [facility] [address] [facility] [address] [facility] CBC AND DIFF (AUTO) NEUTROPHILS [#/VOLUME] IN BLOOD BY AUTOMATED COUNT 4.20 10*3/u L 2.20 - 7.60 01/04 Specimen Type: BLOOD No comment entered. Ordering Provider: MAGUE CRUZ Report Released Date/Time: July 05, 2022 10:31 AM Reporting Lab: [facility] [address] [facility] [address] Performing Lab: [facility] [address] [facility] [address] [facility] CBC AND DIFF (AUTO) LYMPHOCYTES [#/VOLUME] IN BLOOD BY AUTOMATED COUNT 1.69 10*3/u L 1.00 - 3.20 11/21 /2023 Specimen Type: BLOOD No comment entered. Ordering Provider: MAGUE CRUZ Report Released Date/Time: July 05, 2022 10:31 AM Reporting Lab: [facility] [address] [facility] [address] Performing Lab: [facility] [address] [facility] [address] [facility] CBC AND DIFF (AUTO) EOSINOPHILS [#/VOLUME] IN BLOOD BY AUTOMATED COUNT 0.09 10*3/u L 0.03 - 0.44 01/04 Specimen Type: BLOOD No comment entered. Ordering Provider: MAGUE CRUZ Report Released Date/Time: July 05, 2022 10:31 AM Reporting Lab: [facility] [address] [facility] [address] Performing Lab: [facility] [address] [facility] [address] [facility] CBC AND DIFF (AUTO) BASOPHILS [#/VOLUME] IN BLOOD BY AUTOMATED COUNT 0.04 10*3/u L 0.01 - 0.13 01/04 Specimen Type: BLOOD No comment entered. Ordering Provider: MAGUE CRUZ Report Released Date/Time: July 05, 2022 10:31 AM Reporting Lab: [facility] [address] [facility] [address] Performing Lab: [facility] [address] [facility] [address] [facility] CBC AND DIFF (AUTO) IMMATURE GRANULOCYTE S/100 LEUKOCYTES IN BLOOD BY AUTOMATED COUNT 0.3 0.0 - 0.7 01/04 Specimen Type: BLOOD No comment entered. Ordering Provider: MAGUE CRUZ Report Released Date/Time: July 05, 2022 10:31 AM Reporting Lab: [facility] [place] [address] [address] Performing Lab: [facility] [place] [address] [address] [facility] CBC AND DIFF (AUTO) IMMATURE GRANULOCYTE S [#/VOLUME] IN BLOOD 0.02 10*3/u L 0.00 - 0.06 01/04 Specimen Type: BLOOD No comment entered. Ordering Provider: MAGUE CRUZ Report Released Date/Time: July 05, 2022 10:31 AM Reporting Lab: [facility] [address] [facility] [address] Performing Lab: [facility] [address] [facility] [address] [facility] BASIC METABOLIC PANEL (fasting) UREA NITROGEN [MASS/VOLUM E] IN SERUM OR PLASMA 19 mg/dL 7 - 25 06/30 Specimen Type: SERUM No comment entered. Ordering Provider: MAGUE CRUZ Report Released Date/Time: May 07, 2022 09:34 AM Reporting Lab: [facility] [place] [address] [address] Performing Lab: [facility] [place] [address] [address] [facility] BASIC METABOLIC PANEL (fasting) GLUCOSE [MASS/VOLUM E] IN SERUM OR PLASMA 111 mg/dL 65 - 100 06/30 H Specimen Type: SERUM No comment entered. Ordering Provider: MAGUE CRUZ Report Released Date/Time: May 07, 2022 09:34 AM Reporting Lab: [facility] [address] [facility] [address] Performing Lab: [facility] [place] [address] [address] [facility] BASIC METABOLIC PANEL (fasting) SODIUM [MOLES/VOLU ME] IN SERUM OR PLASMA 139 mmol/L 135 - 145 06/30 Specimen Type: SERUM No comment entered. Ordering Provider: MAGUE CRUZ Report Released Date/Time: May 07, 2022 09:34 AM Reporting Lab: [facility] [address] [facility] [address] Performing Lab: [facility] [address] [facility] [address] [facility] BASIC METABOLIC PANEL (fasting) POTASSIUM [MOLES/VOLU ME] IN SERUM OR PLASMA 4.1 mmol/L 3.5 - 5.0 06/30 Specimen Type: SERUM No comment entered. Ordering Provider: MAGUE CRUZ Report Released Date/Time: May 07, 2022 09:34 AM Reporting Lab: [facility] [address] [facility] [address] Performing Lab: [facility] [address] [facility] [address] [facility] BASIC METABOLIC PANEL (fasting) CHLORIDE [MOLES/VOLU ME] IN SERUM OR PLASMA 103 mmol/L 100 - 110 06/30 Specimen Type: SERUM No comment entered. Ordering Provider: MAGUE CRUZ Report Released Date/Time: May 07, 2022 09:34 AM Reporting Lab: [facility] [address] [facility] [address] Performing Lab: [facility] [address] [facility] [address] [facility] BASIC METABOLIC PANEL (fasting) CARBON DIOXIDE, TOTAL [MOLES/VOLU ME] IN SERUM OR PLASMA 28 meq/L 20 - 30 06/30 Specimen Type: SERUM No comment entered. Ordering Provider: MAGUE CRUZ Report Released Date/Time: May 07, 2022 09:34 AM Reporting Lab: [facility] [address] [facility] [address] Performing Lab: [facility] [address] [facility] [address] [facility] BASIC METABOLIC PANEL (fasting) CREATININE [MASS/VOLUM E] IN SERUM OR PLASMA 0.97 mg/dL 0.50 - 1.40 06/30 Specimen Type: SERUM No comment entered. Ordering Provider: MAGUE CRUZ Report Released Date/Time: May 07, 2022 09:34 AM Reporting Lab: [facility] [address] [facility] [address] Performing Lab: [facility] [address] [facility] [address] [facility] BASIC METABOLIC PANEL (fasting) GLOMERULAR FILTRATION RATE/1.73 SQ M.PREDICTED [VOLUME RATE/AREA] IN SERUM, PLASMA OR BLOOD BY CREATININE- BASED FORMULA (CKD-EPI) 82 mL/min 60 06/30 Specimen Type: SERUM No comment entered. Ordering Provider: MAGUE CRUZ Report Released Date/Time: May 07, 2022 09:34 AM Reporting Lab: [facility] [address] [facility] [address] Performing Lab: [facility] [address] [facility] [address] [facility] Vital Signs Combined list of inpatient and outpatient Vital Signs from Department of Defense and Veterans Affairs, ranging from 12 months to all on record, depending upon the facility. Vital Sign Value Date Comments Source SYSTOLIC BLOOD PRESSURE 154 11/11/19 24 09:02:37 [facility] DIASTOLIC BLOOD PRESSURE 90 024 09:02:37 [facility] PULSE OXIMETRY 90 11/11/2023 09:02:37 [facility] WEIGHT 265 11/11/2023 09:02:37 [facility] BMI 37 kg/m2 11/11/2023 09:02:37 [facility] PAIN 0 11/11/2023 09:02:37 [facility] TEMPERATURE 98.7 11/11/2023 09:02:37 [facility] PULSE 107 11/11/2023 09:02:37 [facility] RESPIRATION 16 11/11/2023 09:02:37 [facility] [...] Disposition Source [facility] Outpatient Encounter [id number] 01/05 [facility] OFFICE O/P EST MOD 30-39 MIN [id number] Diagnos is: ICD-10- CM J43.2 Centril obular emphyse GORDON Bee MMED JAWED 01/12 [facility] Outpatient Encounter [id number] 01/13 [facility] Outpatient Encounter [id number] 01/14 [facility] Outpatient Encounter [id number] Diagnos is: ICD-10- CM R91.8 Other nonspec ific abnorma l finding of lung field KARLA MCKAY 01/14 [facility] En[facility] [id number] 01/14 [facility] CMPTR OPHTH IMG OPTIC NERVE [id number] Diagnos is: ICD-10- CM H40.013 Open angle with borderl ine finding s, low risk, bilater al CLAUDIA CAMARA 03/01 [facility] COMPRE OPH EXAM EST PT 1/> [id number] Diagnos is: ICD-10- CM 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, upper and lower eyelids CLAUDIA CAMARA 03/01 [facility] FIT SPECTACLES MULTIFOCAL [id number] Diagnos is: ICD-10- CM Z46.0 Encount er for fit/adj st of spectac les and contact lenses CLAUDIA CAMARA 03/01 [facility] En[facility] [id number] 03/17 [facility] En[facility] [id number] 03/22 [facility] En[facility] [id number] 03/23 [facility] En[facility] [id number] 04/06 [facility] En[facility] [id number] 05/11 [facility] OFFICE O/P EST MOD 30 MIN [id number] Diagnos is: ICD-10- CM J43.2 Centril obular emphyse GORDON Bee MMED JAWED 05/11 [facility] QNHP OL DIG ASSMT&MGMT 01-03 [id number] Diagnos is: ICD-10- CM R91.1 Solitar y pulmona ry nodule JASON, LUIGI L 05/11 [facility] En[facility] [id number] 07/25 [facility] En[facility] [id number] 07/26 [facility] En[facility] [id number] 08/14 [facility] En[facility] [id number] 08/29 [facility] En[facility] [id number] 09/04 [facility] En[facility] [id number] 09/28 [facility] En[facility] [id number] 10/27 [facility] En[facility] [id number] 1.10/30 [facility] [id number] 10/31 [facility] En[facility] [id number] 11/06 [facility] OFFICE O/P EST HI 40 MIN [id number] 1. Diagnos is: ICD-10- CM J43.2 Centril obular emphyse ma YENNY,TI NA 11/10 [facility] En[facility] [id number] 11/10 [facility] En[facility] [id number] 1.11/15 [facility] En[facility] [id number] [facility] En[facility] [id number] 1.11/24 [facility] OFFICE O/P NEW MOD 45 MIN [id number] Diagnos is: ICD-10- CM L57.0 Actinic keratos is ALECIA ESTEBAN 11/28 [facility] En[facility] [id number] 1.12/06 [facility] [id number] 1.01/03 [facility] [id number] 01/18 [facility] En[facility] [id number] 02/12 [facility] En[facility] [id number] 02/12 [facility] En[facility] [id number] 02/21 [facility] OFFICE O/P EST MOD 30 MIN [id number] Diagnos is: ICD-10- CM L71.1 Rhinoph yma CLAUDIA CAMARA 03/20 [facility] CPTRZD OPH DX IMG ANT SGM [id number] Diagnos is: ICD-10- CM H40.013 Open angle with borderl ine finding s, low risk, bilater al CLAUDIA CAMARA 03/20 [facility] FIT SPECTACLES MULTIFOCAL [id number] Diagnos is: ICD-10- CM Z46.0 Encount er for fit/adj st of spectac les and contact lenses [facility] Social History Combined list of available smoking, tobacco, and other social history from [facility] Defense and [facility] facilities. Social History Type Response Date Comment Source Tobacco smoking status NHIS [place]-TOBACCO USER EVERY DAY 01/12/2023 [facility] [place] [facility] History of tobacco use [place]-TOBACCO DOESNT USE WI 30 MIN WAKEUP 01/12/2023 [facility] [place] History of tobacco use [place]-TOBACCO USER EVERY DAY 10/23/2021 [facility] [place] History of tobacco use [place]-TOBACCO DOESNT USE WI 30 MIN WAKEUP 10/29/2020 [facility] [place] [facility] History of tobacco use [place]-TOBACCO FORMER USER 10/10/2019 [facility] [place] [facility] CL[facility] NO 10/26/2018 [facility] [place] History of tobacco use CURRENT SMOKER 08/04/2017 [facility] [place] History of tobacco use QUIT TOBACCO USE IN PAST YEAR 01/31/2017 31 days [facility] [place] [facility] History of tobacco use CURRENT SMOKER 01/26/2016 [facility] [place] History of tobacco use QUIT TOBACCO USE IN PAST YEAR 02/20/2015 [facility] [place] [facility] History of tobacco use CURRENT SMOKER 06/17/2014 Reports being an off and on smoker -cigarette s [facility] [place] [facility] History of tobacco use CURRENT SMOKER 09/14/2011 less than a pack a day [facility] [place] History of tobacco use CURRENT SMOKER 03/09/2010 1 ppd [facility] [place] History of tobacco use V1-PT DECLINES TOBACCO CESSATION MEDS 09/29/2009 [facility] [place] [facility] History of tobacco use CURRENT SMOKER 01/29/2009 1 ppd [facility] [place] [facility] History of tobacco use CURRENT SMOKER 03/17/2005 [facility] Plan of Care List of future care activities from [facility] facilities. Additional future care activities may be listed in the Assessment and Plan section. Date/Time Care Activity Care Activity Detail Facili ty 05/10/2024 AMBULATORY - NONE AMBULATORY - NONE [facility] 05/10/2024 AMBULATORY - MEDICINE AMBULATORY - MEDICI NE [facility] 05/10/2024 Imaging - CT Scan Order LDCT MIN G CANCER SCREENING [facility] Advance Directives List of completed, amended, or rescinded Advance Directives on record at [facility] facilities. An actual copy of the Directive is not included. Date Advance Directive Provider Source 11/11/2023 ADVANCE DIRECTIVE JACOB DEL TORO [facility]
== END 2024-04-18 09:57 | disposition home or self-care (01) ==
LOC: HO.BBR 09:56
PROVIDERS: PCP Internal Medicine; Visit Provider Internal Medicine
DX: Z13.89 Encounter for screening for other disorder (principal)

== ENCOUNTER 2024-05-08 13:28 | Outpatient (AMB) | payer OTHER, SELFPAY ==
--- NOTE | 2024-05-08 13:32 | MHC.OFFVIS ---
Vital Signs 05/08/24 13:33 Height 6 ft Weight 263 lb 7.238 oz BMI 35.7 BP 142/78 H Blood Pressure Location Rt brachial Position Sitting Pulse 95 Pulse Source Doppler Pulse Oximetry (%) 91 L Oxygen Delivery Method Room Air Intake Visit Reasons: COPD Allergies varenicline [From Chantix] Allergy (Mild, Verified 04/12/24 12:58) Unknown HPI HPI COPD: Details: 73-year-old gentleman, recent 60 pack-year smoker, also underlying history of hemochromatosis on phlebotomy now followed for moderate COPD. He has been using Wixela and Spiriva together with albuterol MDI for underlying emphysema with reasonable control. He was tried on theophylline, however he did not have any symptomatic benefit. Patient has a follow-up CT chest at [place] in another week. He has been participating in pulmonary rehab. However, he does complain of slowly worsening dyspnea. [facility] Medical History (Updated 05/08/24 @ 13:57 by Emil Dockery MD) Frequent urination Nocturia Other obesity not elsewhere classified Other male erectile dysfunction Other hemochromatosis Impacted cerumen Depressive disorder, not elsewhere classified Centrilobular emphysema Elevated PSA Hemochromatosis Pulmonary nodules COPD (chronic obstructive pulmonary disease) Personal history of nicotine dependence BPH (benign prostatic hyperplasia) Erectile dysfunction Surgical History (Updated 02/14/24 @ 10:15 by CHADD Paige) History of tonsillectomy History of appendectomy History of colonoscopy Family History (Updated 02/09/24 @ 10:58 by CHADD Paige) Mother Sepsis Father GI cancer Social History (Updated 05/24/23 @ 09:15 by CHADD Lloyd) Patient Tobacco Use Status: Current someday Tobacco user Tobacco use type: Cigarette Years Smoked: smoked for 60 years 1PPD, quit a few days ago. started at 11 Review of Systems Const Denies daytime sleepiness, Denies excessive sweating, Denies fatigue, Denies fever(s), Denies lethargy, Denies malaise, Denies night sweats, Denies snoring and Denies weight loss Eyes Denies blurry vision and Denies itchy eyes ENT Denies nasal congestion, Denies post nasal drip, Denies sinus pain, Denies sinus pressure and Denies other ( Thrush) Card Denies chest pain, Denies pedal edema, Denies dyspnea, Reports dyspnea on exertion, Denies orthopnea and Denies paroxysmal nocturnal dyspnea Resp Denies cough, Denies hemoptysis, Denies excessive phlegm production, Denies dyspnea, Reports dyspnea on exertion, Denies snoring and Denies wheezing GI Denies abdominal pain and Denies heartburn Musc Denies myalgias, Denies arthralgias and Denies joint swelling Skin/Breast Denies rash Neuro Denies memory loss and Denies seizure-like activity Psych Denies abnormal sleep pattern, Denies anxiety and Denies memory loss Endo Denies excessive sweating, Denies fatigue and Denies heat intolerance Colton/Lymph Denies easy bruising Aller/Immun Denies itchy eyes, Denies seasonal rhinorrhea and Denies wheezing Physical Exam Vital Signs: Last Vital Signs Pulse 95 05/08/24 13:33 BP 142/78 H 05/08/24 13:33 Pulse Ox 91 L 05/08/24 13:33 Oxygen Delivery Method Room Air 05/08/24 13:33 BMI result Body Mass Index 35.7 Const General: no acute distress and alert Nutritional Appearance: obese Orientation/consciousness: Other orientation findings ( oriented) HEENT Head: Yes atraumatic Eyes General: appearance normal, both eyes and all related structures Sclerae: sclerae normal EOM: EOMs intact bilaterally Neck Neck: Yes supple Lymphatic: no lymphadenopathy noted Resp Effort & Inspection: normal respiratory effort and no use of accessory muscles Auscultation: clear to auscultation bilaterally Cardio Rate: regular rate Rhythm: regular rhythm Heart sounds: no gallops, no murmurs and no rubs Skin General skin exam: other ( warm) Extrem General: No clubbing, No cyanosis and Yes edema (Trace bilateral) Assessment & Plan Assessment & Plan (1) COPD (chronic obstructive pulmonary disease): Code(s): J44.9 - Chronic obstructive pulmonary disease, unspecified Category: Medical Plan: Reasonable control on current regimen of Wixela, Spiriva, and albuterol MDI. Continue current regimen. (2) Personal history of nicotine dependence: Comment: (onset 11yo, 1ppd x 60yrs - recently quitting 2023 - [facility]) Code(s): Z87.891 - Personal history of nicotine dependence Category: Medical Plan: Lung cancer screening CT chest is pending 05/10/2024. (3) Dyspnea on exertion: Code(s): R06.09 - Other forms of dyspnea Category: Medical Plan: Likely multifactorial. Will obtain 2D echocardiogram to evaluate cardiac component. Orders: Orders CA echo transthorac w con Today R06.09 - Other forms of dyspnea Coding Level of Care Code Est Pt Level 4 (48750) Complex EM visit Add On G2211 Diagnoses COPD (chronic obstructive pulmonary disease) J44.9 Personal history of nicotine dependence Z87.891 Dyspnea on exertion R06.09
[2024-05-08 13:33] VITALS: BP 142/78; PULSE 95; O2SAT 91; BMI 35.7
== END 2024-05-08 13:56 | disposition home or self-care (01) ==
LOC: HO.HPS 13:28
PROVIDERS: PCP Obstetrics & Gynecology; Visit Provider Internal Medicine Pulmonary Disease
DX: J44.9 Chronic obstructive pulmonary disease, unspecified (principal); Z87.891 Personal history of nicotine dependence; R06.09 Other forms of dyspnea
CPT/HCPCS: 99214; G2211

== ENCOUNTER → 2024-05-08 13:28 | Outpatient (BNVA) | payer OTHER, SELFPAY | PROVIDERS: PCP Obstetrics & Gynecology; Visit Provider Internal Medicine Pulmonary Disease | DX: J44.9 Chronic obstructive pulmonary disease, unspecified (principal); R06.09 Other forms of dyspnea; Z87.891 Personal history of nicotine dependence | CPT/HCPCS: 99212 ==

== ENCOUNTER 2024-05-15 10:00 | Outpatient (RCR) | payer OTHER, SELFPAY | END 2024-05-24 06:43 | disposition home or self-care (01) | LOC: HO.PR 10:00 | PROVIDERS: PCP Internal Medicine; Visit Provider Internal Medicine Pulmonary Disease | DX: J44.9 Chronic obstructive pulmonary disease, unspecified (principal) | CPT/HCPCS: 94618; 94625; 99212 ==

== ENCOUNTER → 2024-06-19 10:02 | Outpatient (REF) | payer OTHER, SELFPAY ==
--- NOTE | 2024-06-19 10:07 | CA_ITS ---
Transthoracic Echocardiogram Patient (Last, First, Middle): Rene Boateng F Gender: Male Date of : 1950 Age: 73 Procedure Date: 06/19/2024 Procedure Type: Transthoracic Echocardiogram Location: OP Height: 182.88 cm Weight: 117.94 kg BSA: 2.38 m2 Heart Rate: bpm BP: 132 / 80 mmHg Stockroom Worker: Referring MD: Emil Dockery MD Symptoms: R06.09 - Other forms of dyspnea Study Quality: Fair ECG Rhythm: Sinus Conclusions: - The left ventricular systolic function is normal. The calculated ejection fraction is 59% by biplane method. - Possible sejl-wc-qgphkgyb concentric left ventricular hypertrophy, but difficult to assess due to limited endocardial definition. - No obvious valvular pathology seen on this study. Findings Left Ventricle Normal left ventricular cavity size. The left ventricular systolic function is normal. The calculated ejection fraction is 59% by biplane method. There is no evidence of regional wall motion abnormalities. Evidence suggests grade I (mild) diastolic dysfunction. Possible uswi-fh-zebbollh concentric left ventricular hypertrophy, but difficult to assess due to limited endocardial definition. Right Ventricle Normal right ventricular cavity size and systolic function. Atria Both atria are normal in size. Aortic Valve The aortic valve structure and function is likely normal. There is no aortic valve stenosis. There is no aortic valve regurgitation. Mitral Valve The mitral valve appears normal. There is no mitral valve regurgitation. There is no mitral valve stenosis. Pulmonic Valve The pulmonic valve is likely normal. Tricuspid Valve There is trace tricuspid valve regurgitation. There is no evidence of pulmonary hypertension. Great Vessels The asc aorta is normal in size. Venous The inferior vena cava is normal in size and collapses greater than 50% with inspiration. Pericardium/Pleural There is no evidence of pericardial effusion. Prior Study Comparison No prior study available for comparison. Recommendations, Care & Conclusions No obvious valvular pathology seen on this study. Measurements 2D Linear Measurements IVSd: 1.41 0.6-0.9/0.6-1.0 cm LVIDd: 4.62 3.9-5.3/4.2-5.9 cm LVIDd Index: 1.94 2.4-3.2/2.2-3.1 cm/m2 LVIDs: 2.80 2.0-3.6 cm LVPWd: 1.47 0.7-1.1 cm Ao Root: 4.00 2.1-3.5 cm LA Diam: 3.90 2.7-3.8/3.0-4.0 cm LAIDs Index: 1.64 1.5-2.3 cm/m2 LV Mass: 336.19 67-162/88-224 g LV Mass Index: 141.26 43-95/49-115 g/m2 LVOT Diam: 2.30 3.0+(-)1.3 cm 2D Systolic Function EF 4C: 55.10 >55% EF 2C: 60.60 >55% EF BiP: 59.10 >55% Mitral Valve MV Pk E: 0.51 MV PK A: 0.95 MV Decel Time: 182.00 E/A: 0.50 E'Lateral: 6.64 E'Medial: 5.66 E/E' Med: 9.10 E/E' Lat: 7.70 PHT: 53.00 MVA PHT: 4.15 Decel Aiken: 2.82 Aortic Valve AoV Pk Lopez: 1.21 AoV Mn Lopez: 0.75 AoV VTI: 0.26 AoV Pk Grad: 6.00 Aov Mn Grad: 3.00 TOMY Cont.VTI: 3.62 LVOT LVOT Pk Lopez: 1.07 LVOT Mn Lopez: 0.65 LVOT VTI: 0.23 LVOT Pk Grad: 5.00 LVOT Mn Grad: 2.00 LVOT Diam: 2.30 LVOT Area: 4.15 Diastolic Function MV Pk E: 0.51 MV Pk A: 0.95 E/A: 0.50 E'Medial: 5.66 E/E' Med: 9.10 E' Laterial: 6.64 E/E' Lat: 7.70 Right Ventricle TAPSE (mm): 24.00 TVS' Lopez: 14.00 Tricuspid Valve TR Pk Lopez: 1.74 TR Pk Grad: 12.00 RA Press: 3.00 RVSP: 15.00 Great Vessels Aorta Ao Root-2D: 4.00 2.0-3.7 cm Sinus of Valsalva: 4.10 2.0-3.5 cm Ao Asc: 3.50 2.1-3.4 cm Pulmonary Valve PV Pk Lopez: 1.12 Peak PV Grad: 5.00 Updated in Other Vendor System with Status of Final Sanjeev Foster MD electronically signed on 06/21/2024 11:05:23 AM with status of Final
--- OUTSIDE RECORDS SUMMARY | 2024-06-19 11:26 | XMS_ITS ---
Author Name [facility] [place] [facility] [place] Address [address] [place] [address] Care Team Providers Care Staffing And Scheduling Coordinator Name Role Phone PRINCESS RAMON Primary Care [...] PART B Jul 15, 2013 PART B [id number] BRAD CUENCA JR PATIENT MEDICARE (WNR) MEDICARE (M) PART A Jul 15, 2013 PART A [id number] BRAD CUENCA JR PATIENT MEDICARE (WNR) MEDICARE (M) PART A Jul 15, 2013 PART A [id number] BRAD CUENCA JR PATIENT MEDICARE (WNR) MEDICARE (M) PART B Jul 15, 2013 PART B [id number] [phone] BRAD CUENCA JR PATIENT Selected Encounter [...] activities for the patient from all [place] [facility] This section includes future appointments and future orders which are active, pending or scheduled. Future Appointments This section includes appointments that were scheduled to occur 6 months from the date of the Encounter, up to a maximum of 20 appointments. The data comes from all [facility]. Appointment Date/Time Appointment Type Appointme nt Facility Name Feb 21, 2024 09:45 AM AMBULATORY - MEDICINE [facility] [place] [facility] Feb 27, 2024 10:00 AM AMBULATORY - MEDICINE [facility] [place] [facility] Mar 20, 2024 09:00 AM AMBULATORY - MEDICINE [facility] [place] [facility] Mar 20, 2024 11:15 AM AMBULATORY - MEDICINE [facility] [place] [facility] May 08, 2024 01:45 PM AMBULATORY - MEDICINE [facility] [place] [facility] May 10, 2024 09:30 AM AMBULATORY - NONE [facility] [place] [facility] May 10, 2024 10:30 AM AMBULATORY - MEDICINE [facility] [place] [facility] Active, Pending, and Scheduled Orders This section includes a listing of several types of active, pending, and scheduled orders, including clinic medications orders, diagnostic test orders, procedure orders and consult orders; where the start date of the order is 45 days before the date of the Encounter or 45 days after the date of the Encounter. The data comes from all [facility]. Test Date/Time Test Type Test Details Facility Name Jan 05, 2024 08:22 AM Consult Order COMMUNITY CARE-PULMONARY REHAB Cons Periodontal Assistant's Choice [facility] [place] [facility] Social History: Smoking Status (Most [...] USER EVERY DAY [facility] [place] [facility] Tobacco Use History This section includes a history of the smoking, or tobacco-related health factors, that were collected on or before the date of the Encounter. The data comes from the [facility] where the Encounter took place. Date/Time Smoking Status/Tobac co Use Comment Facility Jan 12, 2023 09:00 AM VA-TOBACCO USE 30 YEARS OR MORE [facility] [place] [facility] Jan 12, 2023 09:00 AM VA-TOBACCO USE ADVICE [facility] [place] [facility] Jan 12, 2023 09:00 AM VA-TOBACCO USE HOSPITAL SUPERINTENDENT NO [facility] [place] [facility] Jan 12, 2023 09:00 AM VA-TOBACCO USE MED NO [facility] [place] [facility] Jan 12, 2023 09:00 AM VA-TOBACCO USER EVERY DAY [facility] [place] [facility] Oct 23, 2021 08:00 AM VA-TOBACCO DOESNT USE WI 30 MIN WAKEUP [facility] [place] [facility] Oct 23, 2021 08:00 AM VA-TOBACCO USE 30 YEARS OR MORE [facility] [place] [facility] Oct 23, 2021 08:00 AM VA-TOBACCO USE ADVICE [facility] [place] [facility] Oct 23, 2021 08:00 AM VA-TOBACCO USE HOSPITAL SUPERINTENDENT NO [facility] [place] [facility] Oct 23, 2021 08:00 AM VA-TOBACCO USE MED NO [facility] [place] [facility] Oct 23, 2021 08:00 AM VA-TOBACCO USER EVERY DAY [facility] [place] [facility] Oct 29, 2020 10:00 AM VA-TOBACCO DOESNT USE WI 30 MIN WAKEUP [facility] [place] [facility] Oct 29, 2020 10:00 AM VA-TOBACCO USE 30 YEARS OR MORE [facility] [place] [facility] Oct 29, 2020 10:00 AM VA-TOBACCO USE ADVICE [facility] [place] [facility] Oct 29, 2020 10:00 AM VA-TOBACCO USE HOSPITAL SUPERINTENDENT YES [facility] [place] [facility] Oct 29, 2020 10:00 AM VA-TOBACCO USE MED NOTIFY PROVIDER [facility] [place] [facility] Oct 29, 2020 10:00 AM VA-TOBACCO USER EVERY DAY [facility] [place] [facility] Oct 10, 2019 11:00 AM VA-TOBACCO FORMER USER [facility] [place] [facility] Oct 10, 2019 11:00 AM VA-TOBACCO QUIT < 1 YEAR [facility] [place] [facility] Oct 26, 2018 07:55 AM VA-TOBACCO USE > 15 LESS THAN 30 YEARS [facility] [place] [facility] Oct 26, 2018 07:55 AM VA-TOBACCO USE ADVICE [facility] [place] [facility] Oct 26, 2018 07:55 AM VA-TOBACCO USE HOSPITAL SUPERINTENDENT NO [facility] [place] [facility] Oct 26, 2018 07:55 AM VA-TOBACCO USE MED NO [facility] [place] [facility] Oct 26, 2018 07:55 AM VA-TOBACCO USE WI 30 MIN OF WAKEUP [facility] [place] [facility] Oct 26, 2018 07:55 AM VA-TOBACCO USER EVERY DAY [facility] [place] [facility] Aug 04, 2017 08:53 AM CURRENT SMOKER [facility] [place] [facility] Aug 04, 2017 08:53 AM V1-PT DECLINES REF TO TOBACCO CESS [facility] [place] [facility] Aug 04, 2017 08:53 AM V1-PT DECLINES TOBACCO CESSATION MEDS [facility] [place] [facility] Aug 04, 2017 08:53 AM V1-PT THINKING ABOUT QUIT TOBACCO USE [facility] [place] [facility] Jan 31, 2017 09:51 AM QUIT TOBACCO USE IN PAST YEAR 31 days [facility] [place] [facility] Jan 26, 2016 08:36 AM CURRENT SMOKER [facility] [place] [facility] Jan 26, 2016 08:36 AM V1-PT DECLINES REF TO TOBACCO CESS PRGM [facility] [place] [facility] Jan 26, 2016 08:36 AM V1-PT DECLINES TOBACCO CESSATION MEDS [facility] [place] [facility] Jan 26, 2016 08:36 AM V1-PT THINKING ABOUT QUIT [facility]ACCO [facility] [place] [facility] Feb 20, 2015 10:25 AM QUIT TOBACCO USE IN PAST YEAR [facility] [place] [facility] June 17, 2014 07:37 AM CURRENT SMOKER Reports being an off and on smoker -cigarettes [facility] [place] [facility] June 17, 2014 07:37 AM V1-PT DECLINES REF TO TOBACCO CESS PRGM [facility] [place] [facility] June 17, 2014 07:37 AM V1-PT DECLINES TOBACCO CESSATION MEDS [facility] [place] [facility] June 17, 2014 07:37 AM V1-PT THINKING ABOUT QUIT [facility]BACCO USE [facility] [place] [facility] Sep 14, 2011 09:51 AM CURRENT SMOKER less than a pack a day [facility] Sep 14, 2011 09:51 AM V1-PT DECLINES REF TO TOBACCO CESS [facility] Sep 14, 2011 09:51 AM V1-PT DECLINES TOBACCO CESSATION MEDS [facility] [place] [facility] Sep 14, 2011 09:51 AM V1-PT THINKING ABOUT QUIT TOBACCO USE [facility] [place] [facility] Mar 09, 2010 09:32 AM CURRENT SMOKER 1 ppd [facility] [place] [facility] Mar 09, 2010 09:32 AM V1-PT DECLINES TOBACCO CESSATION MEDS [facility] Mar 09, 2010 09:32 AM V1-PT REF TO NON-VA TOBACCO CESS [facility] Mar 09, 2010 09:32 AM V1-PT THINKING ABOUT QUIT TOBACCO USE [facility] [place] [facility] Sep 29, 2009 02:07 PM V1-PT DECLINES REF TO TOBACCO CESS PRGM [facility] [place] [facility] Sep 29, 2009 02:07 PM V1-PT DECLINES TOBACCO CESSATION MEDS [facility] [place] [facility] Sep 29, 2009 02:07 PM V1-PT NOT INTERESTED IN QUIT TOBACCO USE [facility] [place] [facility] Jan 29, 2009 11:00 AM CURRENT SMOKER 1 ppd [facility] [place] [facility] Jan 29, 2009 11:00 AM V1-PT DECLINES TOBACCO CESSATION MEDS [facility] Jan 29, 2009 11:00 AM V1-PT READY TO QUIT TOBACCO USE [facility] Mar 17, 2005 08:36 AM CURRENT SMOKER [facility] Advance Directives: All historical and [...] Source Nov 11, 2023 [facility] Encounter Notes: All associated encounter notes This section contains the clinical notes associated to the Encounter. Date/Time Encounter Note(s) Provider Source Feb 13, 2024 10:42 AM PHARMACY NOTE: LOCAL TITLE: V1 PHARMACY CUSTOMER CARE MEDICATION RENEWAL STANDARD TITLE: PHARMACY NOTE DATE OF NOTE: FEB 13, 2024@10:42 ENTRY DATE: FEB 13, 2024@10:42:43 AUTHOR: JATIN RUSHING EXP COSIGNER: URGENCY: STATUS: COMPLETED Date: Jan Division: [place] Pt referred by Pharmacy Call Center for medication renewal: Non-controlled/maintenanc e medication Medications requested: [id number] FINASTERIDE 5MG TAB Defer to primary care provider To be mailed . Please review and renew if appropriate. *This note was generated by [facility]/ID Pharmacy Customer Care. If you have any questions or need assistance, do not contact this author. Please refer all questions to your local, on-site pharmacy departments. /natalie/ JATIN RUSHING CPhT DRESSAGE JUDGE, ID/PHARMACY CUSTOMER CARE Signed: 02/13/2024 10:42 Receipt Acknowledged By: 02/13/2024 16:21 /natalie/ PRINCESS RAMON D.O. PHYSICIAN 02/13/2024 10:45 /es/ ZENON RODAS, MSN, RN, CNL PRIMARY CARE TEAM NURSE JATIN RUSHING [facility]
--- OUTSIDE RECORDS SUMMARY | 2024-06-19 11:26 | XMS_ITS | Continuity of Care Document ---
Author Name [facility] Organization [facility] Care Team Providers Care Molded Goods Controls Operator Name Role Phone [facility] Unavailable Unavailable Problems Combined list of problems from Department of Defense and Veterans Affairs facilities. It does not include entries that were removed or entered in error. Problem Status Onset Date Problem Type Date of Resolution Comments Source Hemochromatosis (SNOMED CT 250651015) Active 02/14/18 96 Condition Nov 11, 2023 Entered By: PRINCESS RAMON Comment: keep HCT <16, ferritin <200. phlebotomy at [facility] changed to every other month, 450cc [facility] Benign prostatic hyperplasia Active Condition May 10, 2024 Entered By: PRINCESS RAMON Comment: caren Collins urology- plan for TURP [facility] Centriacinar emphysema Active Condition May 10, 2024 Entered By: PRINCESS RAMON Comment: caren collins pulmonary [facility] Erectile dysfunction (SNOMED CT 152092851) Active Condition [facility] Hemochromatosis Active Condition [facility] Impaired fasting glucose Active Condition [facility] Nicotine dependence (SNOMED CT 85402352) Active Condition [facility] [...] finding of lung field Active Diagnosis [facility] Medications Combined list of outpatient medications from [...] G RESPIR ATORY (INHAL ATION) ACTIVE 11/25/2024 [id number] FURCOLO,T PATY 2023 3 [facility] ALBUTEROL 90MCG/ACTUA T (CFC-F) INHL,ORAL,8 .5GM DOSE COUNTER INHALE 2 PUFFS BY MOUTH FOUR TIMES DAILY NEEDED FOR BREATHIN G RESPIR ATORY (INHAL ATION) DISCONT INUED 08/16/2024 [id number] FURCOLO,T PATY 2023 1 [facility] ALBUTEROL 90MCG/ACTUA T (CFC-F) INHL,ORAL,8 .5GM DOSE COUNTER INHALE 2 PUFFS BY MOUTH FOUR TIMES DAILY NEEDED FOR BREATHIN G RESPIR ATORY (INHAL ATION) DISCONT INUED 07/06/2023 [id number] [facility] 2022 1 [facility] FINASTERIDE 5MG TAB TAKE ONE TABLET BY MOUTH ONCE DAILY FOR PROSTATE ORAL SUSPEND ED 02/13/2025 [id number] 5 FURCOLO,T PATY 2023 90 [facility] FINASTERIDE 5MG TAB TAKE ONE TABLET BY MOUTH ONCE DAILY FOR PROSTATE ORAL DISCONT INUED 01/13/2024 [id number] [facility] 2022 90 [facility] FLUTICASONE 250MCG/SALM ETEROL 50MCG INHL,ORAL,D ISKUS,60 INHALE 1 PUFF BY MOUTH TWICE DAILY FOR BREATHIN G - RINSE MOUTH AFTER USE RESPIR ATORY (INHAL ATION) ACTIVE 05/11/2025 [id number] 5 FURCOLO,T PATY 2024 3 [facility] FLUTICASONE 250MCG/SALM ETEROL 50MCG INHL,ORAL,D ISKUS,60 INHALE 1 PUFF BY MOUTH TWICE DAILY FOR BREATHIN G - RINSE MOUTH AFTER USE RESPIR ATORY (INHAL ATION) DISCONT INUED 08/16/2024 [id number] 5 FURCOLO,T PATY 2023 1 [facility] FLUTICASONE 250MCG/SALM ETEROL 50MCG INHL,ORAL,D ISKUS,60 INHALE 1 PUFF BY MOUTH TWICE DAILY FOR BREATHIN G - RINSE MOUTH AFTER USE RESPIR ATORY (INHAL ATION) DISCONT INUED 01/13/2024 [id number] DK CRUZ JAWED 2022 1 [facility] LIDOCAINE 5% PATCH APPLY 1 PATCH TOPICALL Y ONCE DAILY FOR NERVE PAIN (LEAVE PATCH ON FOR 12 HOURS, THEN REMOVE PATCH) TOPICA L ACTIVE 11/11/2024 [id number] FURCOLO,T PATY 2023 90 [facility] TAMSULOSIN HCL 0.4MG CAP TAKE ONE CAPSULE BY MOUTH AT BEDTIME ORAL SUSPEND ED 08/16/2024 [id number] 5 FURCOLO,T PATY 2023 90 [facility] TAMSULOSIN HCL 0.4MG CAP TAKE ONE CAPSULE BY MOUTH AT BEDTIME ORAL DISCONT INUED 01/13/2024 [id number] 4 DK CRUZ JAWED 2022 90 [facility] THEOPHYLLIN E 400MG 24HR TAB,SA TAKE ONE TABLET BY MOUTH ONCE DAILY ORAL DISCONT INUED BY PROVIDE R 04/06/2024 [id number] LAMONT,AN BARBARA 2023 30 [facility] TIOTROPIUM 2.5MCG/ACTU AT INHL,ORAL,6 0D,4GM INHALE 2 PUFFS BY MOUTH ONCE DAILY RESPIR ATORY (INHAL ATION) ACTIVE 05/11/2025 [id number] 5 FURCOLO,T PATY 2024 3 [facility] TIOTROPIUM 2.5MCG/ACTU AT INHL,ORAL,6 0D,4GM INHALE 2 PUFFS BY MOUTH ONCE DAILY RESPIR ATORY (INHAL ATION) DISCONT INUED 08/16/2024 [id number] 5 FURCOLO,T PATY 2023 1 [facility] TIOTROPIUM 2.5MCG/ACTU AT INHL,ORAL,6 0D,4GM INHALE 2 PUFFS BY MOUTH ONCE DAILY RESPIR ATORY (INHAL ATION) DISCONT INUED 01/13/2024 [id number] 4 DK CRUZ JAWED 2022 1 [facility] [place] [facility] Allergies, Adverse Reactions, Alerts Combined list of allergies from Department of Defense and Veterans Affairs facilities. It does not include entries that were removed or entered in error. Substance Category Reaction Severity Reaction type Status Date Reported Comments Source CHANTIX Propensity to adverse reactions to drug (finding) Anxiety active 0 [facility] [place] [facility] Immunizations Combined list of available immunizations from the Department of Defense and Veterans Affairs facilities. Immunization Series Date Given Administered By Site Reaction Lot Number CVX Code Drug Branch General Manager Status Comments Source INFLUENZA, HIGH-DOSE, QUADRIVALENT 2022 PELON ESPINOSA LEFT DELTO ID [id number] 197 complet ed Completed Series, ADMINISTE RED AT [facility], [facility] [place] [facility] INFLUENZA VACCINE, QUADRIVALENT, ADJUVANTED 2021 205 complet ed [facility] [place] ZOSTER RECOMBINANT 2 2021 187 complet ed [facility] COVID-19 (MODERNA), MRNA, LNP-S, PF, 100 MCG OR 50 MCG DOSE 3 2020 207 complet ed MOD; [id number]; 2 [facility] [place] [facility] INFLUENZA VACCINE, QUADRIVALENT, ADJUVANTED 2020 205 complet ed [facility] [place] [facility] PNEUMOCOCCAL POLYSACCHARID E PPV23 2020 33 complet ed [facility] TDAP 2020 115 complet ed [facility] ZOSTER RECOMBINANT 1 2020 187 complet ed [facility] COVID-19 (MODERNA), MRNA, LNP-S, PF, 100 MCG/0.5 ML DOSE 2 2020 207 complet ed MOD; [id number]; 1 [facility] COVID-19 (MODERNA), MRNA, LNP-S, PF, 100 MCG/0.5 ML DOSE 1 2020 207 complet ed MOD; [id number]; 1 [facility] [...] May 01, 2024 08:17 AM Reporting Lab: [facility] [address] [facility] [address] Performing Lab: [facility]ERN [facility] [address] [facility] [address] [facility] [place] [facility] LIVER FUNCTION PROTEIN [MASS/VOLUM E] IN SERUM OR PLASMA 6.7 g/dL 6.0 - 8.3 05/04 Specimen Type: SERUM No comment entered. Ordering Provider: RADHA RAMON Report Released Date/Time: May 01, 2024 08:17 AM Reporting Lab: [facility] DOTHANTRN [facility] [address] [facility] [address] Performing Lab: [facility]ITALRGRAND[facility]ERN [facility] [address] [facility] [address] [facility]ERN [place] [facility] LIVER FUNCTION ALBUMIN [MASS/VOLUM E] IN SERUM OR PLASMA 4.0 g/dL 3.5 - 5.0 05/04 Specimen Type: SERUM No comment entered. Ordering Provider: RADHA RAMON Report Released Date/Time: May 01, 2024 08:17 AM Reporting Lab: [facility] [place] [facility] [address] [facility] [address] Performing Lab: [facility] [place] [facility] [address] [facility] [address] [facility] [place] [facility] LIVER FUNCTION ALKALINE PHOSPHATASE [ENZYMATIC ACTIVITY/VO LUME] IN SERUM OR PLASMA 81 U/L 40 - 150 05/04 Specimen Type: SERUM No comment entered. Ordering Provider: RADHA RAMON Report Released Date/Time: May 01, 2024 08:17 AM Reporting Lab: [facility] [place] [facility] [address] [facility] [address] Performing Lab: [facility] [place] [facility] [address] [facility] [address] [facility] [place] [facility] LIVER FUNCTION ASPARTATE AMINOTRANSF ERASE [ENZYMATIC ACTIVITY/VO LUME] IN SERUM OR PLASMA 18 U/L 5 - 34 05/04 Specimen Type: SERUM No comment entered. Ordering Provider: RADHA RAMON Report Released Date/Time: May 01, 2024 08:17 AM Reporting Lab: [facility] [place] [facility] [address] [facility] [address] Performing Lab: [facility] [place] [facility] [address] [facility] [address] [facility] [place] [facility] LIVER FUNCTION ALANINE AMINOTRANSF ERASE [ENZYMATIC ACTIVITY/VO LUME] IN SERUM OR PLASMA 32 U/L 05/04 Specimen Type: SERUM No comment entered. Ordering Provider: RADHA RAMON Report Released Date/Time: May 01, 2024 08:17 AM Reporting Lab: [facility] [place] [facility] [address] [facility] [address] Performing Lab: [facility] [place] [facility] [address] [facility] [address] [facility] [place] [facility] LIVER FUNCTION BILIRUBIN.T OTAL [MASS/VOLUM E] IN SERUM OR PLASMA 0.7 mg/dL 0.2 - 1.2 05/04 Specimen Type: SERUM No comment entered. Ordering Provider: RADHA RMAON Report Released Date/Time: May 01, 2024 08:17 AM Reporting Lab: [facility] [address] [facility] [address] Performing Lab: [facility] [place] [facility] [address] [facility] [address] [facility]ITALRL [facility]USE [facility] HEMOGLOBI N A1C PANEL HEMOGLOBIN A1C/HEMOGLO BIN.TOTAL [...] May 01, 2024 08:17 AM Reporting Lab: [facility] [address] [address] Performing Lab: [facility]USE[address] [address] [facility] CBC LEUKOCYTES [#/VOLUME] IN BLOOD BY AUTOMATED COUNT 7.46 10*3/u L 4.50 - 11.00 05/04 Specimen Type: BLOOD No comment entered. Ordering Provider: RADHA RAMON Report Released Date/Time: May 01, 2024 08:17 AM Reporting Lab: [facility] [address] [facility] [address] Performing Lab: [facility]USE[address] [address] [facility] CBC ERYTHROCYTE S [#/VOLUME] IN BLOOD BY AUTOMATED COUNT 4.82 10*6/u L 4.23 - 5.66 05/04 Specimen Type: BLOOD No comment entered. Ordering Provider: RADHA RAMON Report Released Date/Time: May 01, 2024 08:17 AM Reporting Lab: [facility] [address] [facility] [address] Performing Lab: [facility] [place] [facility] [address] [facility] [address] [facility] [place] [facility] CBC HEMOGLOBIN [MASS/VOLUM E] IN BLOOD 15.6 g/dL 12.8 - 17 05/04 Specimen Type: BLOOD No comment entered. Ordering Provider: RADHA RAMON Report Released Date/Time: May 01, 2024 08:17 AM Reporting Lab: [facility] [place] [facility] [address] [facility] [address] Performing Lab: [facility] [place] [facility] [address] [facility] [address] [facility] [place] [facility] CBC HEMATOCRIT [VOLUME FRACTION] OF BLOOD BY AUTOMATED COUNT 45.4 39.2 - 50.4 05/04 Specimen Type: BLOOD No comment entered. Ordering Provider: RADHA RAMON Report Released Date/Time: May 01, 2024 08:17 AM Reporting Lab: [facility] [place] [facility] [address] [facility] [address] Performing Lab: [facility] [place] [facility] [address] [facility] [address] [facility] [place] [facility] CBC MCV [ENTITIC VOLUME] BY AUTOMATED COUNT 94.2 fL 82 - 99 05/04 Specimen Type: BLOOD No comment entered. Ordering Provider: RADHA RAMON Report Released Date/Time: May 01, 2024 08:17 AM Reporting Lab: [facility] [place] [facility] [address] [facility] [address] Performing Lab: [facility] [place] [facility] [address] [facility] [address] [facility] [place] [facility] CBC MCHC [MASS/VOLUM E] BY AUTOMATED COUNT 34.4 g/dL 30.8 - 35.1 05/04 Specimen Type: BLOOD No comment entered. Ordering Provider: RADHA RAMON Report Released Date/Time: May 01, 2024 08:17 AM Reporting Lab: [facility] [place] [facility] [address] [facility] [address] Performing Lab: [facility] [place] [facility] [address] [facility] [address] [facility] [place] [facility] CBC PLATELETS [#/VOLUME] IN BLOOD BY AUTOMATED COUNT 158 10*3/u L 140 - 360 05/04 Specimen Type: BLOOD No comment entered. Ordering Provider: RADHA RAMON Report Released Date/Time: May 01, 2024 08:17 AM Reporting Lab: [facility] [place] [facility] [address] [facility] [address] Performing Lab: [facility] [place] [address] [address] [facility] [facility] CBC ERYTHROCYTE DISTRIBUTIO N WIDTH [RATIO] BY AUTOMATED COUNT 12.4 12.0 - 16.0 05/04 Specimen Type: BLOOD No comment entered. Ordering Provider: RADHA RAMON Report Released Date/Time: May 01, 2024 08:17 AM Reporting Lab: [facility] [place] [facility] [address] [facility] [address] Performing Lab: [facility] [place] [facility] [address] [facility] [address] [facility] [place] [facility] CBC MCH [ENTITIC MASS] BY AUTOMATED COUNT 32.4 pg 26.2 - 32.6 05/04 Specimen Type: BLOOD No comment entered. Ordering Provider: RADHA RAMON Report Released Date/Time: May 01, 2024 08:17 AM Reporting Lab: [facility] [place] [facility] [address] [facility] [address] Performing Lab: [facility] [place] [facility] [address] [facility] [address] [facility] [place] [facility] BASIC METABOLIC PANEL (fasting) UREA NITROGEN [MASS/VOLUM E] IN SERUM OR PLASMA 18 mg/dL 7 - 25 05/04 Specimen Type: SERUM No comment entered. Ordering Provider: RADHA RAMON Report Released Date/Time: May 01, 2024 08:17 AM Reporting Lab: [facility] [place] [facility] [address] [facility] [address] Performing Lab: [facility]ITALRNOL[facility] DOTHANTRN [facility] [address] [facility] [address] [facility]R WSTRN [facility]USE [facility] BASIC METABOLIC PANEL (fasting) GLUCOSE [MASS/VOLUM E] IN SERUM OR PLASMA 123 mg/dL 65 - 100 05/04 H Specimen Type: SERUM No comment entered. Ordering Provider: RADHA RAMON Report Released Date/Time: May 01, 2024 08:17 AM Reporting Lab: [facility]ITALRGR[facility]ERN [address] [address] Performing Lab: [facility]ITALRNOL[facility] DOTHANTRN [facility]USE[address] [address] [facility]ITALRGRANDVIEW [facility]ENTERN [facility] BASIC METABOLIC PANEL (fasting) SODIUM [MOLES/VOLU ME] IN SERUM OR PLASMA 139 mmol/L 135 - 145 05/04 Specimen Type: SERUM No comment entered. Ordering Provider: RADHA RAMON Report Released Date/Time: May 01, 2024 08:17 AM Reporting Lab: [facility]ITALRNOL[facility] DOTHANTRN [facility]USE[address] [address] Performing Lab: [facility]OSPITALRL TRN [facility]USE[address] [address] [facility]ITALRL TRN [facility] BASIC METABOLIC PANEL (fasting) POTASSIUM [MOLES/VOLU ME] IN SERUM OR PLASMA 4.2 mmol/L 3.5 - 5.0 05/04 Specimen Type: SERUM No comment entered. Ordering Provider: RADHA RAMON Report Released Date/Time: May 01, 2024 08:17 AM Reporting Lab: [facility]ITALRNOL[facility] DOTHANTRN [facility]USE[address] [address] Performing Lab: [facility]ITALRL TRN [facility]USE[address] [address] [facility]ITALRNOL[facility] DOTHANTRN MASSUSE [facility] BASIC METABOLIC PANEL (fasting) CHLORIDE [MOLES/VOLU ME] IN SERUM OR PLASMA 106 mmol/L 100 - 110 05/04 Specimen Type: SERUM No comment entered. Ordering Provider: RADHA RAMON Report Released Date/Time: May 01, 2024 08:17 AM Reporting Lab: [facility]ITALRNOL[facility] DOTHANTRN [facility]USE[address] [address] Performing Lab: [facility]OSPITALRL WSTRN [facility].USETS [address] [address] [facility]ITALRGRANDVIEW [facility]ENTERN [facility] BASIC METABOLIC PANEL (fasting) CARBON DIOXIDE, TOTAL [MOLES/VOLU ME] IN SERUM OR PLASMA 26 meq/L 20 - 30 05/04 Specimen Type: SERUM No comment entered. Ordering Provider: RADHA RAMON Report Released Date/Time: May 01, 2024 08:17 AM Reporting Lab: [facility]ITALRNOL[facility] DOTHANTRN [place] [address] [address] Performing Lab: [facility]OSPITALRL WSTRN [place] [address] [address] [facility] BASIC METABOLIC PANEL (fasting) CALCIUM [MASS/VOLUM E] IN SERUM OR PLASMA 8.8 mg/dL 8.5 - 10.2 05/04 Specimen Type: SERUM No comment entered. Ordering Provider: RADHA RAMON Report Released Date/Time: May 01, 2024 08:17 AM Reporting Lab: [facility]ITALRNOL[facility] DOTHANTRN [place] [address] [address] Performing Lab: [facility]PITALRL [facility]N [place] [address] [address] [facility]ITALRGRANDVIEW [facility]ENTERN [facility]USE [facility] BASIC METABOLIC PANEL (fasting) CREATININE [MASS/VOLUM E] IN SERUM OR PLASMA 0.87 mg/dL 0.50 - 1.40 05/04 Specimen Type: SERUM No comment entered. Ordering Provider: RADHA RAMON Report Released Date/Time: May 01, 2024 08:17 AM Reporting Lab: [facility]ITALRNOL[facility] DOTHANTRN [address]SE[address] [address] Performing Lab: [facility]ITALRNOL[facility] DOTHANTRN [facility]USEM[facility] [address] [facility] [address] [facility]ITALRGRANDVIEW [facility] CENTERN [facility] BASIC METABOLIC PANEL (fasting) GLOMERULAR FILTRATION RATE/1.73 SQ M.PREDICTED [VOLUME RATE/AREA] IN SERUM, PLASMA OR BLOOD BY CREATININE- BASED FORMULA (CKD-EPI 2020) 89 mL/min 60 05/04 Specimen Type: SERUM No comment entered. Ordering Provider: RADHA RAMON Report Released Date/Time: May 01, 2024 08:17 AM Reporting Lab: [facility] [address] [facility] [address] Performing Lab: [facility] [address] [facility] [address] [facility] LIPID PANEL FASTING CHOLESTEROL [MASS/VOLUM E] IN SERUM OR PLASMA 162 mg/dL 05/04 Specimen Type: SERUM No comment entered. Ordering Provider: RADHA RAMON Report Released Date/Time: May 01, 2024 08:17 AM Reporting Lab: [facility] [address] [facility] [address] Performing Lab: [facility]ITALRNOL[facility] DOTHANTRN [facility] [address] [facility] [address] [facility] LIPID PANEL FASTING TRIGLYCERID E [MASS/VOLUM E] IN SERUM OR PLASMA 119 mg/dL 0 - 150 05/04 Specimen Type: SERUM No comment entered. Ordering Provider: RADHA RAMON Report Released Date/Time: May 01, 2024 08:17 AM Reporting Lab: [facility]ITALRNOL[facility] DOTHANTRN [facility]USEM[facility] [address] [facility] [address] Performing Lab: [facility]ITALRNOL[facility] DOTHANTRN [facility] [address] [facility] [address] [facility] LIPID PANEL FASTING CHOLESTEROL IN LDL [MASS/VOLUM E] IN SERUM OR PLASMA BY CALCULATION 97 mg/dL 0 - 129 05/04 Specimen Type: SERUM No comment entered. Ordering Provider: RADHA RAMON Report Released Date/Time: May 01, 2024 08:17 AM Reporting Lab: [facility] [place] [place] [facility] [address] [facility] [address] Performing Lab: [facility] [place] [facility] [address] [facility] [phone] [facility] [place] [facility] LIPID PANEL FASTING CHOLESTEROL .TOTAL/CHOL ESTEROL IN HDL [MASS RATIO] IN SERUM OR PLASMA 4.0 05/04 Specimen Type: SERUM No comment entered. Ordering Provider: RADHA RAMON Report Released Date/Time: May 01, 2024 08:17 AM Reporting Lab: [facility] [place] [place] [facility] [address] [facility] [phone] Performing Lab: [facility]N [facility] [address] [facility] [phone] [facility] LIPID PANEL FASTING CHOLESTEROL IN HDL [MASS/VOLUM E] IN SERUM OR PLASMA 41 mg/dL 40 - 60 05/04 Specimen Type: SERUM No comment entered. Ordering Provider: RADHA RAMON Report Released Date/Time: May 01, 2024 08:17 AM Reporting Lab: [facility] [address] [facility] [phone] Performing Lab: [facility] [address] [facility] [address] [facility] FERRITIN FERRITIN [MASS/VOLUM E] IN SERUM OR PLASMA 144 ng/mL 20 - 300 11/02 Specimen Type: SERUM No comment entered. Ordering Provider: RADHA RAMON Report Released Date/Time: Nov 01, 2023 12:47 PM Reporting Lab: [facility] [place] [place] [facility] [address] [facility] [phone] Performing Lab: [facility] [place] [facility] [address] [facility] [phone] [facility] [place] [facility] IRON & TIBC PANEL IRON BINDING CAPACITY [MASS/VOLUM E] IN SERUM OR PLASMA 268 ug/dL 204 - 475 11/02 Specimen Type: SERUM No comment entered. Ordering Provider: FURCOLO,TIN A Report Released Date/Time: Nov 01, 2023 12:47 PM Reporting Lab: [facility] [place] [facility] [address] [facility] [phone] Performing Lab: [facility] [place] [facility] [address] [facility] [phone] [facility] [place] [facility] IRON & TIBC PANEL IRON [MASS/VOLUM E] IN SERUM OR PLASMA 195 ug/dL 40 - 160 11/02 H Specimen Type: SERUM No comment entered. Ordering Provider: RADHA RAMON Report Released Date/Time: Nov 01, 2023 12:47 PM Reporting Lab: [facility] [place] [facility] [address] [facility] [address] Performing Lab: [facility] [place] [facility] [address] [facility] [address] [facility] [place] [facility] IRON & TIBC PANEL IRON/IRON BINDING CAPACITY.TO KEVIN [MASS RATIO] IN SERUM OR PLASMA 72.8 20.0 - 50.0 11/02 H Specimen Type: SERUM No comment entered. Ordering Provider: RADHA RAMON Report Released Date/Time: Nov 01, 2023 12:47 PM Reporting Lab: [facility] [place] [facility] [address] [facility] [address] Performing Lab: [facility] [place] [facility] [address] [facility] [address] [facility] [place] [facility] IRON & TIBC PANEL TRANSFERRIN [MASS/VOLUM E] IN SERUM OR PLASMA 203 mg/dL 200 - 360 11/02 Specimen Type: SERUM No comment entered. Ordering Provider: RADHA RAMON Report Released Date/Time: Nov 01, 2023 12:47 PM Reporting Lab: [facility] [place] [facility] [address] [facility] [address] Performing Lab: [facility] [place] [facility] [address] [facility] [address] [facility] [place] [facility] LIVER FUNCTION PROTEIN [MASS/VOLUM E] IN SERUM OR PLASMA 6.4 g/dL 6.0 - 8.3 11/02 Specimen Type: SERUM No comment entered. Ordering Provider: RADHA RAMON Report Released Date/Time: Nov 01, 2023 12:47 PM Reporting Lab: [facility] [place] [facility] [address] [facility] [address] Performing Lab: [facility] [place] [facility] [address] [facility] [address] [facility] [place] [facility] LIVER FUNCTION ALBUMIN [MASS/VOLUM E] IN SERUM OR PLASMA 4.1 g/dL 3.5 - 5.0 11/02 Specimen Type: SERUM No comment entered. Ordering Provider: RADHA RAMON Report Released Date/Time: Nov 01, 2023 12:47 PM Reporting Lab: [facility] [place] [facility] [address] [facility] [address] Performing Lab: [facility] [place] [facility] [address] [facility] [address] [facility] [place] [facility] LIVER FUNCTION ALKALINE PHOSPHATASE [ENZYMATIC ACTIVITY/VO LUME] IN SERUM OR PLASMA 75 U/L 40 - 150 11/02 Specimen Type: SERUM No comment entered. Ordering Provider: RADHA RAMON Report Released Date/Time: Nov 01, 2023 12:47 PM Reporting Lab: [facility] [place] [facility] [address] [facility] [address] Performing Lab: [facility] [place] [facility] [address] [facility] [address] [facility] [place] [facility] LIVER FUNCTION ASPARTATE AMINOTRANSF ERASE [ENZYMATIC ACTIVITY/VO LUME] IN SERUM OR PLASMA 22 U/L 5 - 34 11/02 Specimen Type: SERUM No comment entered. Ordering Provider: RADHA RAMON Report Released Date/Time: Nov 01, 2023 12:47 PM Reporting Lab: [facility] [place] [facility] [address] [facility] [address] Performing Lab: [facility] [place] [facility] [address] [facility] [address] [facility] [place] [facility] LIVER FUNCTION ALANINE AMINOTRANSF ERASE [ENZYMATIC ACTIVITY/VO LUME] IN SERUM OR PLASMA 35 U/L 11/02 Specimen Type: SERUM No comment entered. Ordering Provider: RADHA RAMON Report Released Date/Time: Nov 01, 2023 12:47 PM Reporting Lab: [facility] [place] [address] [address] Performing Lab: [facility] [place] [address] [address] [facility] [place] [facility] LIVER FUNCTION BILIRUBIN.T OTAL [MASS/VOLUM E] IN SERUM OR PLASMA 0.6 mg/dL 0.2 - 1.2 11/02 Specimen Type: SERUM No comment entered. Ordering Provider: RADHA RAMON Report Released Date/Time: Nov 01, 2023 12:47 PM Reporting Lab: [facility] [place] [address] [address] Performing Lab: [facility] [address] [address] [facility] CBC LEUKOCYTES [#/VOLUME] IN BLOOD BY AUTOMATED COUNT 7.31 10*3/u L 4.50 - 11.00 11/02 Specimen Type: BLOOD No comment entered. Ordering Provider: RADHA RAMON Report Released Date/Time: Nov 01, 2023 12:47 PM Reporting Lab: [facility] [place] [address] [address] Performing Lab: [facility] [place] [address] [address] [facility] [place] [facility] CBC ERYTHROCYTE S [#/VOLUME] IN BLOOD BY AUTOMATED COUNT 5.14 10*6/u L 4.23 - 5.66 11/02 Specimen Type: BLOOD No comment entered. Ordering Provider: RADHA RAMON Report Released Date/Time: Nov 01, 2023 12:47 PM Reporting Lab: [facility] [place] [address] [address] Performing Lab: [facility] [address] [address] [facility] [place] [facility] CBC HEMOGLOBIN [MASS/VOLUM E] IN BLOOD 16.5 g/dL 12.8 - 17 11/02 Specimen Type: BLOOD No comment entered. Ordering Provider: RADHA RAMON Report Released Date/Time: Nov 01, 2023 12:47 PM Reporting Lab: [facility] [place] [facility] [address] [facility] [address] Performing Lab: [facility] [place] [facility] [address] [facility] [address] [facility] [place] [facility] CBC HEMATOCRIT [VOLUME FRACTION] OF BLOOD BY AUTOMATED COUNT 49.0 39.2 - 50.4 11/02 Specimen Type: BLOOD No comment entered. Ordering Provider: RADHA RAMON Report Released Date/Time: Nov 01, 2023 12:47 PM Reporting [facility] [place] [facility] [address] [facility] [address] Performing Lab: [facility] [place] [facility] [address] [facility] [address] [facility] [place] [facility] CBC MCV [ENTITIC VOLUME] BY AUTOMATED COUNT 95.3 fL 82 - 99 11/02 Specimen Type: BLOOD No comment entered. Ordering Provider: RADHA RAMON Report Released Date/Time: Nov 01, 2023 12:47 PM Reporting Lab[facility] [place] [facility] [address] [facility] [address] Performing Lab: [facility] [place] [facility] [address] [facility] [address] [facility] [place] [facility] CBC MCHC [MASS/VOLUM E] BY AUTOMATED COUNT 33.7 g/dL 30.8 - 35.1 11/02 Specimen Type: BLOOD No comment entered. Ordering Provider: RADHA RAMON Report Released Date/Time: Nov 01, 2023 12:47 PM Reporting Lab: [facility] [place] [facility] [address] [facility] [address] Performing Lab: [facility] [place] [address] [address] [facility] [place] [facility] CBC PLATELETS [#/VOLUME] IN BLOOD BY AUTOMATED COUNT 182 10*3/u L 140 - 360 11/02 Specimen Type: BLOOD No comment entered. Ordering Provider: RADHA RAMON Report Released Date/Time: Nov 01, 2023 12:47 PM Reporting Lab: [facility] [place] [facility] [address] [facility] [address] Performing Lab: [facility] [place] [facility] [address] [facility] [address] [facility] [place] [facility] CBC ERYTHROCYTE DISTRIBUTIO N WIDTH [RATIO] BY AUTOMATED COUNT 12.3 12.0 - 16.0 11/02 Specimen Type: BLOOD No comment entered. Ordering Provider: RADHA RAMON Report Released Date/Time: Nov 01, 2023 12:47 PM Reporting Lab: [facility] [place] [facility] [address] [facility] [address] Performing Lab: [facility] [place] [facility] [address] [facility] [address] [facility] [place] [facility] CBC MCH [ENTITIC MASS] BY AUTOMATED COUNT 32.1 pg 26.2 - 32.6 11/02 Specimen Type: BLOOD No comment entered. Ordering Provider: RADHA RAMON Report Released Date/Time: Nov 01, 2023 12:47 PM Reporting Lab: [facility] [place] [address] [address] Performing Lab: [facility] [place] [facility] [address] [facility] [address] [facility] [place] [facility] Vital Signs Combined list of inpatient and outpatient Vital Signs from Department of Defense and Veterans Affairs, ranging from 12 months to all on record, depending upon the facility. Vital Sign Value Date Comments Source SYSTOLIC BLOOD PRESSURE 133 05/11/19 25 10:36:03 [facility] [place] [facility] DIASTOLIC BLOOD PRESSURE 79 025 10:36:03 [facility] [place] [facility] PULSE OXIMETRY 91 05/10/2024 10:36:03 [facility] [id number] 01/05 [facility] [place] OFFICE O/P EST MOD 30-39 MIN [id number] Diagnos is: ICD-10- CM J43.2 Centril obular emphyse GORDON Bee MMED JAWED 01/12 [facility] En[facility] [id number] 01/13 [facility] En[facility] [id number] 01/14 [facility] [place] Outpatient Encounter [id number] Diagnos is: ICD-10- CM R91.8 Other nonspec ific abnorma l finding of lung field KARLA MCKAY 01/14 [facility] En[facility] [id number] 01/14 [facility] CMPTR OPHTH IMG OPTIC NERVE [id number] Diagnos is: ICD-10- CM H40.013 Open angle with borderl ine finding s, low risk, bilater al CLAUDIA CAMARA 03/01 [facility] 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, upper and lower eyelids CLAUDIA CAMARA 03/01 [facility] FIT SPECTACLES MULTIFOCAL [id number] Diagnos is: ICD-10- CM Z46.0 Encount er for fit/adj st of spectac les and contact lenses CLAUDIA CAMARA 03/01 [facility] En[facility] [id number] 03/17 [facility] En[facility] [id number] 03/22 [facility] En[facility] [id number] 03/23 [facility] En[facility] [id number] 04/06 [facility] En[facility] [id number] 05/11 [facility] OFF[facility] O/P EST MOD 30 MIN [id number] Diagnos is: ICD-10- CM J43.2 Centril obular emphyse GORDON Bee MMED JAWED 05/11 [facility] QNHP OL DIG ASSMT&MGMT 11-20 [id number] Diagnos is: ICD-10- CM R91.1 Solitar y pulmona ry nodule LUIGI GOMEZ L 05/11 [facility] En[facility] [id number] 07/25 [facility] En[facility] [id number] 07/26 [facility] En[facility] [id number] 08/14 [facility] En[facility] [id number] 08/29 [facility] En[facility] [id number] 09/04 [facility] En[facility] [id number] 09/28 [facility] En[facility] [id number] 10/27 [facility] En[facility] [id number] 10/30 [facility] En[facility] [id number] 10/31 [facility] En[facility] [id number] 11/06 [facility] OFFICE O/P EST HI 40 MIN [id number] 1. Diagnos is: ICD-10- CM J43.2 Centril obular emphyse ma YENNY,TI NA 11/10 [facility] En[facility] [id number] 11[facility]10 [facility] En[facility] [id number] 1.11/15 [facility] En[facility] [id number] [facility] [place] En[facility] [id number] 1.11/24 [facility] OFFICE O/P NEW MOD 45 MIN [id number] Diagnos is: ICD-10- CM L57.0 Actinic keratos is ALECIA ESTEBAN 11/28 [facility] [id number] 1.12/06 [facility] En[facility] [id number] 1[facility]01/03 [facility] [place] [id number] 01/18 [facility] En[facility] [id number] 02/12 [facility] [place] En[facility] [id number] 02/12 [facility] En[facility] [id number] 02/20 [facility] En[facility] [id number] 02/21 [facility] OFF[facility] O/P EST MOD 30 MIN [id number] Diagnos is: ICD-10- CM L71.1 Rhinoph germana CLAUDIA CAMARAE 03/20 [facility] CPTRZD OPH DX IMG ANT SGM [id number] Diagnos is: ICD-10- CM H40.013 Open angle with borderl ine finding s, low risk, bilater al CLAUDIA CAMARA 03/20 [facility] FIT SPECTACLES MULTIFOCAL [id number] Diagnos is: ICD-10- CM Z46.0 Encount er for fit/adj st of spectac les and contact lenses CLAUDIA CAMARA 03/22 [facility] En[facility] [id number] 04/11 [facility] [place] En[facility] [id number] 04/12 [facility] En[facility] [id number] 04/18 [facility] En[facility] [id number] [facility] [place] En[facility] [id number] [facility] OFFICE O/P EST MOD 30 MIN [id number] Diagnos is: ICD-10- CM J43.2 Centril obular emphyse ma YENNY,TI NA 05/10 [facility] [place] [facility] [place] NQHP OL DIG ASSMT&MGMT 21+ [id number] Diagnos is: ICD-10- CM Z12.2 Encntr screen for maligna nt neoplas m of respira tory organs KRISTYN CERVANTES 05/10 [facility] [place] [facility] [place] Outpatient Encounter [id number] 05/29 [facility] [place] [place] [facility] Outpatient Encounter [id number] 05/29 [facility] [place] [facility] Social History Combined list of available smoking, tobacco, and other social history from Department of Defense and Veterans Affairs facilities. Social History Type Response Date Comment Source Tobacco smoking status [facility]-TOBACCO USE SOME DAYS CIGARETTES 05/10/2024 [facility] [place] [facility] History of tobacco use [facility] NEVER USED OTHER TYPE 05/10/2024 [facility] [place] [facility] History of tobacco use VA-TOBACCO USER EVERY DAY 01/12/2023 [facility] [place] [facility] History of tobacco use VA-TOBACCO USER EVERY DAY 10/23/2021 [facility] [place] [facility] History of tobacco use VA-TOBACCO USER EVERY DAY 10/29/2020 [facility] [place] [facility] History of tobacco use VA-TOBACCO FORMER USER 10/10/2019 [facility] [place] 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 History of tobacco use CURRENT SMOKER 08/04/2017 [facility] [place] [facility] History of tobacco use QUIT TOBACCO USE IN PAST YEAR 01/31/2017 31 days [facility] [place] [facility] History of tobacco use CURRENT SMOKER 01/26/2016 [facility] History of tobacco use QUIT TOBACCO USE IN PAST YEAR 02/20/2015 [facility] History of tobacco use CURRENT SMOKER 06/17/2014 Reports being an off and on smoker -cigarette s [facility] History of tobacco use CURRENT SMOKER 09/14/2011 less than a pack a day [facility] History of tobacco use CURRENT SMOKER 03/09/2010 1 ppd [facility] History of tobacco use V1-PT DECLINES TOBACCO CESSATION MEDS 09/29/2009 [facility] History of tobacco use CURRENT SMOKER 01/29/2009 1 ppd [facility] History of tobacco use CURRENT SMOKER 03/17/2005 [facility] Plan of Care List of future care activities from [facility] facilities. Additional future care activities may be listed in the Assessment and Plan section. Date/Time Care Activity Care Activity Detail Facili ty 11/12/2024 AMBULATORY - MEDICINE AMBULATORY - MEDICI [facility] Advance Directives List of completed, amended, or rescinded Advance Directives on record at [facility] facilities. An actual copy of the Directive is not included. Date Advance Directive Provider Source 11/11/2023 [facility]ANCE [facility]
== END ==
LOC: HO.CARD 10:02
PROVIDERS: Visit Provider Internal Medicine Pulmonary Disease
DX: R06.09 Other forms of dyspnea (principal)
CPT/HCPCS: 93306

== ENCOUNTER → 2024-06-19 10:07 | Outpatient (BNV) | payer OTHER, SELFPAY | PROVIDERS: Visit Provider Internal Medicine | DX: I36.1 Nonrheumatic tricuspid (valve) insufficiency (principal) | CPT/HCPCS: 93306 ==

== ENCOUNTER 2024-06-20 10:01 | Outpatient (REF) | payer OTHER, SELFPAY ==
--- OUTSIDE RECORDS SUMMARY | 2024-06-20 11:10 | XMS_ITS | Continuity of Care Document ---
Author Name [facility] Organization [facility] Care Team Providers Care Outside Sales Inspector Name Role Phone [facility] Unavailable Unavailable Problems Combined list of problems from Department of Defense and Veterans Affairs facilities. It does not include entries that were removed or entered in error. Problem Status Onset Date Problem Type Date of Resolution Comments Source Hemochromatosis (SNOMED CT 522991708) Active 02/14/18 96 Condition Nov 11, 2023 Entered By: PRINCESS RAMON Comment: keep HCT <16, ferritin <200. phlebotomy at [facility] changed to every other month, 450cc [facility] Benign prostatic hyperplasia Active Condition May 10, 2024 Entered By: PRINCESS RAMON Comment: caren Collins urology- plan for TURP [facility] Centriacinar emphysema Active Condition May 10, 2024 Entered By: PRINCESS RAMON Comment: caren collins pulmonary [facility] Erectile dysfunction (SNOMED CT 934733035) Active Condition [facility] Hemochromatosis Active Condition [facility] Impaired fasting glucose Active Condition [facility] Nicotine dependence (SNOMED CT 03963900) Active Condition [facility] [...] abnormal finding of lung field Active Diagnosis [facility] Medications Combined list of outpatient medications [...] G RESPIR ATORY (INHAL ATION) ACTIVE 11/25/2024 [id number] FURCOLO,T PATY 2023 3 [facility] ALBUTEROL 90MCG/ACTUA T (CFC-F) INHL,ORAL,8 .5GM DOSE COUNTER INHALE 2 PUFFS BY MOUTH FOUR TIMES DAILY NEEDED FOR BREATHIN G RESPIR ATORY (INHAL ATION) DISCONT INUED 08/16/2024 [id number] FURCOLO,T PATY 2023 1 [facility] ALBUTEROL 90MCG/ACTUA T (CFC-F) INHL,ORAL,8 .5GM DOSE COUNTER INHALE 2 PUFFS BY MOUTH FOUR TIMES DAILY NEEDED FOR BREATHIN G RESPIR ATORY (INHAL ATION) DISCONT INUED 07/06/2023 [id number] [facility] FINASTERIDE 5MG TAB TAKE ONE TABLET BY MOUTH ONCE DAILY FOR PROSTATE ORAL SUSPEND ED 02/13/2025 [id number] 5 FURCOLO,T PATY 2023 90 [facility] FINASTERIDE 5MG TAB TAKE ONE TABLET BY MOUTH ONCE DAILY FOR PROSTATE ORAL DISCONT INUED 01/13/2024 [id number] [facility]NALMED JAWED 2022 90 [facility] FLUTICASONE 250MCG/SALM ETEROL 50MCG INHL,ORAL,D ISKUS,60 INHALE 1 PUFF BY MOUTH TWICE DAILY FOR BREATHIN G - RINSE MOUTH AFTER USE RESPIR ATORY (INHAL ATION) ACTIVE 05/11/2025 [id number] 5 FURCOLO,T PATY 2024 3 [facility] FLUTICASONE 250MCG/SALM ETEROL 50MCG INHL,ORAL,D ISKUS,60 INHALE 1 PUFF BY MOUTH TWICE DAILY FOR BREATHIN G - RINSE MOUTH AFTER USE RESPIR ATORY (INHAL ATION) DISCONT INUED 08/16/2024 [id number] 5 FURCOLO,T PATY 2023 1 [facility] FLUTICASONE 250MCG/SALM ETEROL 50MCG INHL,ORAL,D ISKUS,60 INHALE 1 PUFF BY MOUTH TWICE DAILY FOR BREATHIN G - RINSE MOUTH AFTER USE RESPIR ATORY (INHAL ATION) DISCONT INUED 01/13/2024 [id number] 4 DK CRUZ JAWED 2022 1 [facility] LIDOCAINE 5% PATCH APPLY 1 PATCH TOPICALL Y ONCE DAILY FOR NERVE PAIN (LEAVE PATCH ON FOR 12 HOURS, THEN REMOVE PATCH) TOPICA L ACTIVE 11/11/2024 [id number] FURCOLO,T PATY 2023 90 [facility] TAMSULOSIN HCL 0.4MG CAP TAKE ONE CAPSULE BY MOUTH AT BEDTIME ORAL SUSPEND ED 08/16/2024 [id number] 5 FURCOLO,T PATY 2023 90 [facility] TAMSULOSIN HCL 0.4MG CAP TAKE ONE CAPSULE BY MOUTH AT BEDTIME ORAL DISCONT INUED 01/13/2024 [id number] 4 DK CRUZ JAWED 2022 90 [facility] THEOPHYLLIN E 400MG 24HR TAB,SA TAKE ONE TABLET BY MOUTH ONCE DAILY ORAL DISCONT INUED BY PROVIDE R 04/06/2024 [id number] LAMONT,AN BARBARA 2023 30 [facility] TIOTROPIUM 2.5MCG/ACTU AT INHL,ORAL,6 0D,4GM INHALE 2 PUFFS BY MOUTH ONCE DAILY RESPIR ATORY (INHAL ATION) ACTIVE 05/11/2025 [id number] 5 FURCOLO,T PATY 2024 3 [facility] TIOTROPIUM 2.5MCG/ACTU AT INHL,ORAL,6 0D,4GM INHALE 2 PUFFS BY MOUTH ONCE DAILY RESPIR ATORY (INHAL ATION) DISCONT INUED 08/16/2024 [id number] 5 FURCOLO,T PATY 2023 1 [facility] TIOTROPIUM 2.5MCG/ACTU AT INHL,ORAL,6 0D,4GM INHALE 2 PUFFS BY MOUTH ONCE DAILY RESPIR ATORY (INHAL ATION) DISCONT INUED 01/13/2024 [id number] DK CRUZ JAWED 2022 1 [facility] [place] [facility] Allergies, Adverse Reactions, Alerts Combined list of allergies from Department of Defense and Veterans Affairs facilities. It does not include entries that were removed or entered in error. Substance Category Reaction Severity Reaction type Status Date Reported Comments Source CHANTIX Propensity to adverse reactions to drug (finding) Anxiety active 0 [facility] [place] [facility] Immunizations Combined list of available immunizations from the Department of Defense and Veterans Affairs facilities. Immunization Series Date Given Administered By Site Reaction Lot Number CVX Code Drug Chief Mechanical Officer Status Comments Source INFLUENZA, HIGH-DOSE, QUADRIVALENT 2022 PELON ESPINOSA LEFT DELTO ID [id number] 197 complet ed Completed Series, [place], [facility] [place] [facility] INFLUENZA VACCINE, QUADRIVALENT, ADJUVANTED 2021 205 complet ed [facility] [place] [place] ZOSTER RECOMBINANT 2 2021 187 complet ed [facility] COVID-19 (MODERNA), MRNA, LNP-S, PF, 100 MCG OR 50 MCG DOSE 3 2020 207 complet ed MOD; [id number]; 2 [facility] [place] [facility] INFLUENZA VACCINE, QUADRIVALENT, ADJUVANTED 2020 205 complet ed [facility] [place] [facility] PNEUMOCOCCAL POLYSACCHARID E PPV23 2020 33 complet ed [facility] TDAP 2020 115 complet ed [facility] ZOSTER RECOMBINANT 1 2020 187 complet ed [facility] COVID-19 (MODERNA), MRNA, LNP-S, PF, 100 MCG/0.5 ML DOSE 2 2020 207 complet ed MOD; [id number]; 1 [facility] COVID-19 (MODERNA), MRNA, LNP-S, PF, 100 MCG/0.5 ML DOSE 1 2020 207 complet ed MOD; [id number]; 1 [facility] [...] Reference Range Date Interpretation Specimen Comments Source BASIC METABOLIC PANEL (fasting) UREA NITROGEN [MASS/VOLUM E] IN SERUM OR PLASMA 18 mg/dL 7 - 25 05/04 Specimen Type: SERUM No comment entered. Ordering Provider: RADHA RAMON Report Released Date/Time: May 01, 2024 08:17 AM Reporting Lab: [facility] [address] [address] Performing Lab: [facility] [address] [address] [facility] BASIC METABOLIC PANEL (fasting) GLUCOSE [MASS/VOLUM E] IN SERUM OR PLASMA 123 mg/dL 65 - 100 05/04 H Specimen Type: SERUM No comment entered. Ordering Provider: RADHA RAMON Report Released Date/Time: May 01, 2024 08:17 AM Reporting Lab: [facility] [place] [facility] [address] [address] Performing Lab: [facility] [address] [address] [facility] BASIC METABOLIC PANEL (fasting) SODIUM [MOLES/VOLU ME] IN SERUM OR PLASMA 139 mmol/L 135 - 145 05/04 Specimen Type: SERUM No comment entered. Ordering Provider: RADHA RAMON Report Released Date/Time: May 01, 2024 08:17 AM Reporting Lab: [facility] [place] [facility] [address] [address] Performing Lab: [facility]ITALUSE[address] [address] [facility] TRN [facility] BASIC METABOLIC PANEL (fasting) POTASSIUM [MOLES/VOLU ME] IN SERUM OR PLASMA 4.2 mmol/L 3.5 - 5.0 05/04 Specimen Type: SERUM No comment entered. Ordering Provider: RADHA RAMON Report Released Date/Time: May 01, 2024 08:17 AM Reporting Lab: [facility]OTHANTRN [facility]ITALUSE[address] [address] Performing Lab: [facility] TRN [facility]ITALUSE[address] [address] [facility]ITALRNOR[facility]ITALN [facility]ITALUSE [facility] BASIC METABOLIC PANEL (fasting) CHLORIDE [MOLES/VOLU ME] IN SERUM OR PLASMA 106 mmol/L 100 - 110 05/04 Specimen Type: SERUM No comment entered. Ordering Provider: RADHA RAMON Report Released Date/Time: May 01, 2024 08:17 AM Reporting Lab: [facility]OTHANTRN [facility]ITALUSE[address] [address] Performing Lab: [facility]ITALRL W[facility]OSPITALUSETS [address] [address] [facility]ITALREN[facility] DOTHANTRN [facility]ITALUSE [facility] BASIC METABOLIC PANEL (fasting) CARBON DIOXIDE, TOTAL [MOLES/VOLU ME] IN SERUM OR PLASMA 26 meq/L 20 - 30 05/04 Specimen Type: SERUM No comment entered. Ordering Provider: RADHA RAMON Report Released Date/Time: May 01, 2024 08:17 AM Reporting Lab: [facility]ITALR[facility] DOTHANTRN [facility]ITALUSE[address] [address] Performing Lab: [facility] [address] [facility]ITALRL [facility]N [facility]ITALUSE [facility] BASIC METABOLIC PANEL (fasting) CALCIUM [MASS/VOLUM E] IN SERUM OR PLASMA 8.8 mg/dL 8.5 - 10.2 05/04 Specimen Type: SERUM No comment entered. Ordering Provider: RADHA RAMON Report Released Date/Time: May 01, 2024 08:17 AM Reporting Lab: [facility]ITALRL TRN [facility]ITALUSE[address] [address] Performing Lab: [facility]ITALUSE[address] [address] [facility] BASIC METABOLIC PANEL (fasting) CREATININE [MASS/VOLUM E] IN SERUM OR PLASMA 0.87 mg/dL 0.50 - 1.40 05/04 Specimen Type: SERUM No comment entered. Ordering Provider: RADHA RAMON Report Released Date/Time: May 01, 2024 08:17 AM Reporting Lab: [facility]ITALRL TRN [facility]ITAL[facility] [address] Performing Lab: [facility]ITALRL TRN [address] [address] [facility] BASIC METABOLIC PANEL (fasting) GLOMERULAR FILTRATION RATE/1.73 SQ M.PREDICTED [VOLUME RATE/AREA] IN SERUM, PLASMA OR BLOOD BY CREATININE- BASED FORMULA (CKD-EPI 2020) 89 mL/min 60 05/04 Specimen Type: SERUM No comment entered. Ordering Provider: RADHA RAMON Report Released Date/Time: May 01, 2024 08:17 AM Reporting Lab: [facility]ITALRL TRN [facility]ITALUSE[address] [address] Performing Lab: [facility]ITALRENCOM[facility] DOTHANTRN [facility]ITALUSE[address] [address] [facility] CBC LEUKOCYTES [#/VOLUME] IN BLOOD BY AUTOMATED COUNT 7.46 10*3/u L 4.50 - 11.00 05/04 Specimen Type: BLOOD No comment entered. Ordering Provider: RADHA RAMON Report Released Date/Time: May 01, 2024 08:17 AM Reporting Lab: [facility] [place] [facility] [address] [address] Performing Lab: [facility] [place] [facility] [address] [address] [facility] [place] [facility] CBC ERYTHROCYTE S [#/VOLUME] IN BLOOD BY AUTOMATED COUNT 4.82 10*6/u L 4.23 - 5.66 05/04 Specimen Type: BLOOD No comment entered. Ordering Provider: RADHA RAMON Report Released Date/Time: May 01, 2024 08:17 AM Reporting Lab: [facility] [facility] [address] [address] Performing Lab: [facility] [place] [facility] [address] [address] [facility] [place] [facility] CBC HEMOGLOBIN [MASS/VOLUM E] IN BLOOD 15.6 g/dL 12.8 - 17 05/04 Specimen Type: BLOOD No comment entered. Ordering Provider: RADHA RAMON Report Released Date/Time: May 01, 2024 08:17 AM Reporting Lab: [facility] [facility] [address] [address] Performing Lab: [facility] [place] [facility] [address] [address] [facility] [place] [facility] CBC HEMATOCRIT [VOLUME FRACTION] OF BLOOD BY AUTOMATED COUNT 45.4 39.2 - 50.4 05/04 Specimen Type: BLOOD No comment entered. Ordering Provider: RADHA RAMON Report Released Date/Time: May 01, 2024 08:17 AM Reporting Lab: [facility] [place] [facility] [address] [address] Performing Lab: [facility] [place] [facility] [address] [address] [facility] [place] [facility] CBC MCV [ENTITIC VOLUME] BY AUTOMATED COUNT 94.2 fL 82 - 99 05/04 Specimen Type: BLOOD No comment entered. Ordering Provider: RADHA RAMON Report Released Date/Time: May 01, 2024 08:17 AM Reporting Lab: [facility] [place] [facility] [address] [address] Performing Lab: [facility] [place] [facility] [address] [address] [facility] [place] [facility] CBC MCHC [MASS/VOLUM E] BY AUTOMATED COUNT 34.4 g/dL 30.8 - 35.1 05/04 Specimen Type: BLOOD No comment entered. Ordering Provider: RADHA RAMON Report Released Date/Time: May 01, 2024 08:17 AM Reporting Lab: [facility] [place] [facility] [address] [address] Performing Lab: [facility] [place] [facility] [address] [address] [facility] [place] [facility] CBC PLATELETS [#/VOLUME] IN BLOOD BY AUTOMATED COUNT 158 10*3/u L 140 - 360 05/04 Specimen Type: BLOOD No comment entered. Ordering Provider: RADHA RAMON Report Released Date/Time: May 01, 2024 08:17 AM Reporting Lab: [facility] [place] [facility] [address] [address] Performing Lab: [facility] [place] [facility] [address] [address] [facility] [place] [facility] CBC ERYTHROCYTE DISTRIBUTIO N WIDTH [RATIO] BY AUTOMATED COUNT 12.4 12.0 - 16.0 05/04 Specimen Type: BLOOD No comment entered. Ordering Provider: RADHA RAMON Report Released Date/Time: May 01, 2024 08:17 AM Reporting Lab: [facility] [place] [facility] [address] [address] Performing Lab: [facility] [place] [facility] [address] [address] [facility] [place] [facility] CBC MCH [ENTITIC MASS] BY AUTOMATED COUNT 32.4 pg 26.2 - 32.6 05/04 Specimen Type: BLOOD No comment entered. Ordering Provider: RADHA RAMON Report Released Date/Time: May 01, 2024 08:17 AM Reporting Lab: [facility] [place] [facility] [address] [address] Performing Lab: [facility] [place] [facility] [address] [address] [facility] [place] [facility] FERRITIN FERRITIN [MASS/VOLUM E] IN SERUM OR PLASMA 92 ng/mL 20 - 300 05/04 Specimen Type: SERUM No comment entered. Ordering Provider: RADHA RAMON Report Released Date/Time: May 01, 2024 08:17 AM Reporting Lab: [facility] [place] [facility] [address] [address] Performing Lab: [facility] [place] [facility] [address] [address] [facility] [place] [facility] HEMOGLOBI N A1C PANEL HEMOGLOBIN A1C/HEMOGLO BIN.TOTAL [...] May 01, 2024 08:17 AM Reporting Lab: [facility] [place] [facility] [address] [address] Performing Lab: [facility] [facility] [address] [address] [facility] [place] [facility] LIPID PANEL FASTING CHOLESTEROL [MASS/VOLUM E] IN SERUM OR PLASMA 162 mg/dL 05/04 Specimen Type: SERUM No comment entered. Ordering Provider: RAHDA RAMON Report Released Date/Time: May 01, 2024 08:17 AM Reporting Lab: [facility] [place] [facility] [address] [address] Performing Lab: [facility] [place] [facility] [address] [address] [facility] [place] [facility] LIPID PANEL FASTING TRIGLYCERID E [MASS/VOLUM E] IN SERUM OR PLASMA 119 mg/dL 0 - 150 05/04 Specimen Type: SERUM No comment entered. Ordering Provider: RADHA RAMON Report Released Date/Time: May 01, 2024 08:17 AM Reporting Lab: [facility] [place] [facility] [address] [address] Performing Lab: [facility] [place] [facility] [address] [address] [facility] [place] [facility] LIPID PANEL FASTING CHOLESTEROL IN LDL [MASS/VOLUM E] IN SERUM OR PLASMA BY CALCULATION 97 mg/dL 0 - 129 05/04 Specimen Type: SERUM No comment entered. Ordering Provider: RADHA RAMON Report Released Date/Time: May 01, 2024 08:17 AM Reporting Lab: [facility] [place] [facility] [address] [address] Performing Lab: [facility] [place] [facility] [address] [address] [facility] [place] [facility] LIPID PANEL FASTING CHOLESTEROL .TOTAL/CHOL ESTEROL IN HDL [MASS RATIO] IN SERUM OR PLASMA 4.0 05/04 Specimen Type: SERUM No comment entered. Ordering Provider: RADHA RAMON Report Released Date/Time: May 01, 2024 08:17 AM Reporting Lab: [facility] [place] [facility] [address] [address] Performing Lab: [facility] [place] [facility] [address] [address] [facility] [place] [facility] LIPID PANEL FASTING CHOLESTEROL IN HDL [MASS/VOLUM E] IN SERUM OR PLASMA 41 mg/dL 40 - 60 05/04 Specimen Type: SERUM No comment entered. Ordering Provider: RADHA RAMON Report Released Date/Time: May 01, 2024 08:17 AM Reporting Lab: [facility] [place] [facility] [address] [address] Performing Lab: [facility] [place] [facility] [address] [address] [facility] [place] [facility] LIVER FUNCTION PROTEIN [MASS/VOLUM E] IN SERUM OR PLASMA 6.7 g/dL 6.0 - 8.3 05/04 Specimen Type: SERUM No comment entered. Ordering Provider: RADHA RAMON Report Released Date/Time: May 01, 2024 08:17 AM Reporting Lab: [facility] [place] [facility] [address] [address] Performing Lab: [facility] [place] [facility] [address] [address] [facility] [place] [facility] LIVER FUNCTION ALBUMIN [MASS/VOLUM E] IN SERUM OR PLASMA 4.0 g/dL 3.5 - 5.0 05/04 Specimen Type: SERUM No comment entered. Ordering Provider: RADHA RAMON Report Released Date/Time: May 01, 2024 08:17 AM Reporting Lab: [facility] [facility] [address] [address] Performing Lab: [facility] [place] [place] [facility] [address] [address] [facility] [place] [facility] LIVER FUNCTION ALKALINE PHOSPHATASE [ENZYMATIC ACTIVITY/VO LUME] IN SERUM OR PLASMA 81 U/L 40 - 150 05/04 Specimen Type: SERUM No comment entered. Ordering Provider: RADHA RAMON Report Released Date/Time: May 01, 2024 08:17 AM Reporting Lab: [facility] [place] [facility] [address] [address] Performing Lab: [facility] [place] [facility] [address] [address] [facility] [place] [facility] LIVER FUNCTION ASPARTATE AMINOTRANSF ERASE [ENZYMATIC ACTIVITY/VO LUME] IN SERUM OR PLASMA 18 U/L 5 - 34 05/04 Specimen Type: SERUM No comment entered. Ordering Provider: RADHA RAMON Report Released Date/Time: May 01, 2024 08:17 AM Reporting Lab: [facility] [place] [facility] [address] [address] Performing Lab: [facility] [place] [facility] [address] [facility] [address] [facility] LIVER FUNCTION ALANINE AMINOTRANSF ERASE [ENZYMATIC ACTIVITY/VO LUME] IN SERUM OR PLASMA 32 U/L 05/04 Specimen Type: SERUM No comment entered. Ordering Provider: RADHA RAMON Report Released Date/Time: May 01, 2024 08:17 AM Reporting Lab: [facility] [place] [facility] [address] [facility] [address] Performing Lab: [facility] [place] [facility] [address] [facility] [address] [facility] LIVER FUNCTION BILIRUBIN.T OTAL [MASS/VOLUM E] IN SERUM OR PLASMA 0.7 mg/dL 0.2 - 1.2 05/04 Specimen Type: SERUM No comment entered. Ordering Provider: RADHA RAMON Report Released Date/Time: May 01, 2024 08:17 AM Reporting Lab: [facility] [place] [facility] [address] [facility] [address] Performing Lab: [facility] [place] [facility] [address] [facility] [address] [facility] CBC LEUKOCYTES [#/VOLUME] IN BLOOD BY AUTOMATED COUNT 7.31 10*3/u L 4.50 - 11.00 11/02 Specimen Type: BLOOD No comment entered. Ordering Provider: RADHA RAMON Report Released Date/Time: Nov 01, 2023 12:47 PM Reporting Lab: [facility] [place] [facility] [address] [facility] [address] Performing Lab: [facility] [place] [address] [address] [facility] [place] [facility] CBC ERYTHROCYTE S [#/VOLUME] IN BLOOD BY AUTOMATED COUNT 5.14 10*6/u L 4.23 - 5.66 11/02 Specimen Type: BLOOD No comment entered. Ordering Provider: RADHA RAMON Report Released Date/Time: Nov 01, 2023 12:47 PM Reporting Lab: [facility] [place] [facility] [address] [facility] [address] Performing Lab: [facility] [place] [facility] [address] [facility] [address] [facility] [place] CBC HEMOGLOBIN [MASS/VOLUM E] IN BLOOD 16.5 g/dL 12.8 - 17 11/02 Specimen Type: BLOOD No comment entered. Ordering Provider: RADHA RAMON Report Released Date/Time: Nov 01, 2023 12:47 PM Reporting Lab: [facility] [place] [facility] [address] [facility] [address] Performing Lab: [facility] [place] [facility] [address] [facility] [address] [facility] CBC HEMATOCRIT [VOLUME FRACTION] OF BLOOD BY AUTOMATED COUNT 49.0 39.2 - 50.4 11/02 Specimen Type: BLOOD No comment entered. Ordering Provider: RADHA RAMON Report Released Date/Time: Nov 01, 2023 12:47 PM Reporting Lab: [facility] [place] [facility] [address] [address] Performing Lab: [facility] [place] [facility] [address] [address] [facility] CBC MCV [ENTITIC VOLUME] BY AUTOMATED COUNT 95.3 fL 82 - 99 11/02 Specimen Type: BLOOD No comment entered. Ordering Provider: RADHA RAMON Report Released Date/Time: Nov 01, 2023 12:47 PM Reporting Lab: [facility] [place] [facility] [address] [address] Performing Lab: [facility] [place] [facility] [address] [address] [facility] [place] CBC MCHC [MASS/VOLUM E] BY AUTOMATED COUNT 33.7 g/dL 30.8 - 35.1 11/02 Specimen Type: BLOOD No comment entered. Ordering Provider: RADHA RAMON Report Released Date/Time: Nov 01, 2023 12:47 PM Reporting Lab: [facility] [place] [facility] [address] [address] Performing Lab: [facility] [address] [address] [facility] [place] CBC PLATELETS [#/VOLUME] IN BLOOD BY AUTOMATED COUNT 182 10*3/u L 140 - 360 11/02 Specimen Type: BLOOD No comment entered. Ordering Provider: RADHA RAMON Report Released Date/Time: Nov 01, 2023 12:47 PM Reporting Lab: [facility] [place] [facility] [address] [address] Performing Lab: [facility] [place] [facility] [address] [facility] [address] [facility] [place] CBC ERYTHROCYTE DISTRIBUTIO N WIDTH [RATIO] BY AUTOMATED COUNT 12.3 12.0 - 16.0 11/02 Specimen Type: BLOOD No comment entered. Ordering Provider: RADHA RAMON Report Released Date/Time: Nov 01, 2023 12:47 PM Reporting Lab: [facility] [place] [facility] [address] [address] Performing Lab: [facility] [place] [facility] [address] [address] [facility] [place] CBC MCH [ENTITIC MASS] BY AUTOMATED COUNT 32.1 pg 26.2 - 32.6 11/02 Specimen Type: BLOOD No comment entered. Ordering Provider: RADHA RAMON Report Released Date/Time: Nov 01, 2023 12:47 PM Reporting Lab: [facility] [place] [facility] [address] [address] Performing Lab: [facility] [place] [facility] [address] [address] [facility] FERRITIN FERRITIN [MASS/VOLUM E] IN SERUM OR PLASMA 144 ng/mL 20 - 300 11/02 Specimen Type: SERUM No comment entered. Ordering Provider: RADHA RAMON Report Released Date/Time: Nov 01, 2023 12:47 PM Reporting Lab: [facility] [place] [facility] [address] [address] Performing Lab: [facility] [address] [address] [facility] [place] IRON & TIBC PANEL IRON BINDING CAPACITY [MASS/VOLUM E] IN SERUM OR PLASMA 268 ug/dL 204 - 475 11/02 Specimen Type: SERUM No comment entered. Ordering Provider: RADHA RAMON Report Released Date/Time: Nov 01, 2023 12:47 PM Reporting Lab: [facility] [place] [facility] [address] [address] Performing Lab: [facility] [place] [facility] [address] [address] [facility] [place] [facility] IRON & TIBC PANEL IRON [MASS/VOLUM E] IN SERUM OR PLASMA 195 ug/dL 40 - 160 11/02 H Specimen Type: SERUM No comment entered. Ordering Provider: RADHA RAMON Report Released Date/Time: Nov 01, 2023 12:47 PM Reporting Lab: [facility] [place] [facility] [address] [address] Performing Lab: [facility] [place] [facility] [address] [address] [facility] [place] [facility] IRON & TIBC PANEL IRON/IRON BINDING CAPACITY.TO KEVIN [MASS RATIO] IN SERUM OR PLASMA 72.8 20.0 - 50.0 11/02 H Specimen Type: SERUM No comment entered. Ordering Provider: RADHA RAMON Report Released Date/Time: Nov 01, 2023 12:47 PM Reporting Lab: [facility] [place] [facility] [address] [address] Performing Lab: [facility] [place] [facility] [address] [address] [facility] [place] IRON & TIBC PANEL TRANSFERRIN [MASS/VOLUM E] IN SERUM OR PLASMA 203 mg/dL 200 - 360 11/02 Specimen Type: SERUM No comment entered. Ordering Provider: RADHA RAMON Report Released Date/Time: Nov 01, 2023 12:47 PM Reporting Lab: [facility] [place] [facility] [address] [address] Performing Lab: [facility] [place] [facility] [address] [address] [facility] [place] [facility] LIVER FUNCTION PROTEIN [MASS/VOLUM E] IN SERUM OR PLASMA 6.4 g/dL 6.0 - 8.3 11/02 Specimen Type: SERUM No comment entered. Ordering Provider: RADHA RAMON Report Released Date/Time: Nov 01, 2023 12:47 PM Reporting Lab: [facility] [place] [facility] [address] [address] Performing Lab: [facility] [place] [address] [address] [facility] LIVER FUNCTION ALBUMIN [MASS/VOLUM E] IN SERUM OR PLASMA 4.1 g/dL 3.5 - 5.0 11/02 Specimen Type: SERUM No comment entered. Ordering Provider: RADHA RAMON Report Released Date/Time: Nov 01, 2023 12:47 PM Reporting Lab: [facility] [place] [facility] [address] [address] Performing Lab: [facility] [place] [facility] [address] [address] [facility] LIVER FUNCTION ALKALINE PHOSPHATASE [ENZYMATIC ACTIVITY/VO LUME] IN SERUM OR PLASMA 75 U/L 40 - 150 11/02 Specimen Type: SERUM No comment entered. Ordering Provider: RADHA RAMON Report Released Date/Time: Nov 01, 2023 12:47 PM Reporting Lab: [facility] [place] [facility] [address] [address] Performing Lab: [facility] [place] [address] [address] [facility] [place] [facility] LIVER FUNCTION ASPARTATE AMINOTRANSF ERASE [ENZYMATIC ACTIVITY/VO LUME] IN SERUM OR PLASMA 22 U/L 5 - 34 11/02 Specimen Type: SERUM No comment entered. Ordering Provider: RADHA RAMON Report Released Date/Time: Nov 01, 2023 12:47 PM Reporting Lab: [facility] [place] [facility] [address] [address] Performing Lab: [facility] [place] [facility] [address] [address] [facility] [place] [facility] LIVER FUNCTION ALANINE AMINOTRANSF ERASE [ENZYMATIC ACTIVITY/VO LUME] IN SERUM OR PLASMA 35 U/L 11/02 Specimen Type: SERUM No comment entered. Ordering Provider: RADHA RAMON Report Released Date/Time: Nov 01, 2023 12:47 PM Reporting Lab: [facility] [place] [address] [address] Performing Lab[facility] [place] [facility] [address] [address] [facility] LIVER FUNCTION BILIRUBIN.T OTAL [MASS/VOLUM E] IN SERUM OR PLASMA 0.6 mg/dL 0.2 - 1.2 11/02 Specimen Type: SERUM No comment entered. Ordering Provider: RADHA RAMON Report Released Date/Time: Nov 01, 2023 12:47 PM Reporting Lab: [facility] [place] [address] [address] Performing Lab[facility] [place] [address] [address] [facility] [place] [facility] Vital Signs Combined list of inpatient and outpatient Vital Signs from Department of Defense and Veterans Affairs, ranging from 12 months to all on record, depending upon the facility. Vital Sign Value Date Comments Source SYSTOLIC BLOOD PRESSURE 133 05/11/19 25 10:36:03 [facility] [place] [facility] DIASTOLIC BLOOD PRESSURE 79 025 10:36:03 [facility] [place] [facility] PULSE OXIMETRY 91 05/10/2024 10:36:03 [...] [facility] [id number] 01/05 [facility] OFFICE O/P EST MOD 30-39 MIN [id number] Diagnos is: ICD-10- CM J43.2 Centril obular emphyse GORDON Bee MMED JAWED 01/12 [facility] En[facility] [id number] 01/13 [facility] En[facility] [id number] 01/14 [facility] [place] [facility] Outpatient Encounter [id number] Diagnos is: ICD-10- CM R91.8 Other nonspec ific abnorma l finding of lung field KARLA MCKAY 01/14 [facility] [facility] En[facility] [id number] 01/14 [facility] CMPTR OPHTH IMG OPTIC NERVE [id number] Diagnos is: ICD-10- CM H40.013 Open angle with borderl ine finding s, low risk, bilater al CLAUDIA CAMARA 03/01 [facility] COMPRE OPH EXAM EST PT 1/> [id number] Diagnos is: ICD-10- CM 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, upper and lower eyelids CLAUDIA CAMARA 03/01 [facility] FIT SPECTACLES MULTIFOCAL [id number] Diagnos is: ICD-10- CM Z46.0 Encount er for fit/adj st of spectac les and contact lenses CLAUDIA CAMARA 03/01 [facility] En[facility] [id number] 03/17 [facility] En[facility] [id number] 03/22 [facility] En[facility] [id number] 03/23 [facility] En[facility] [id number] 04/06 [facility] En[facility] [id number] 05/11 [facility] OFFICE O/P EST MOD 30 MIN [id number] Diagnos is: ICD-10- CM J43.2 Centril obular emphyse GORDON Bee MMED JAWED 05/11 [facility] QNHP OL DIG ASSMT&MGMT 11-20 [id number] Diagnos is: ICD-10- CM R91.1 Solitar y pulmona ry nodule LUIGI GOMEZ L 05/11 [facility] En[facility] [id number] 07/25 [facility] En[facility] [id number] 07/26 [facility] En[facility] [id number] 08/14 [facility] En[facility] [id number] 08/29 [facility] En[facility] [id number] 09/04 [facility] En[facility] [id number] 09/28 [facility] En[facility] [id number] 10/27 [facility] En[facility] [id number] 10/30 [facility] En[facility] [id number] 10/31 [facility] En[facility] [id number] 11/06 [facility] OFFICE O/P EST HI 40 MIN [id number] 1. Diagnos is: ICD-10- CM J43.2 Centril obular emphyse ma YNENY,TI NA 11/10 [facility] [id number] 11/10 [facility] En[facility] [id number] 1.11/15 [facility] En[facility] [id number] [facility] En[facility] [id number] 1.11/24 [facility] OFFICE O/P NEW MOD 45 MIN [id number] Diagnos is: ICD-10- CM L57.0 Actinic keratos is ALECIA ESTEBAN 11/28 [facility] En[facility] [id number] 1.12/06 [facility] En[facility] [id number] 1.01/03 [facility] [id number] 01/18 [facility] En[facility] [id number] 02/12 [facility] Encounter [id number] 02/12 [facility] Encounter [id number] 02/20 [facility] Encounter [id number] 02/21 [facility] OFFICE O/P EST MOD 30 MIN [id number] Diagnos is: ICD-10- CM L71.1 Rhinoph germana CLAUDIA CAMARAE 03/20 [facility] CPTRZD OPH DX IMG ANT SGM [id number] Diagnos is: ICD-10- CM H40.013 Open angle with borderl ine finding s, low risk, bilater al CLAUDIA CAMARA 03/20 [facility] FIT SPECTACLES MULTIFOCAL [id number] Diagnos is: ICD-10- CM Z46.0 Encount er for fit/adj st of spectac les and contact lenses CLAUDIA CAMARA 03/22 [facility] En[facility] [id number] 04/11 [facility] En[facility] [id number] 04/12 [facility] Encounter [id number] 04/18 [facility] En[facility] [id number] [facility] Encounter [id number] [facility] OFFICE O/P EST MOD 30 MIN [id number] Diagnos is: ICD-10- CM J43.2 Centril obular emphyse ma YENNY,TI NA 05/10 [facility] NQHP OL DIG ASSMT&MGMT 21+ [id number] Diagnos is: ICD-10- CM Z12.2 Encntr screen for maligna nt neoplas m of respira tory organs KRISTYN CERVANTES 05/10 [facility] [place] [facility] Outpatient Encounter [id number] 05/29 [facility] [place] Outpatient Encounter [id number] 05/29 [facility] [place] [facility] Social History Combined list of available smoking, tobacco, and other social history from Department of Defense and Veterans Affairs facilities. 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 USER EVERY DAY 01/12/2023 [facility] [place] [facility] History of tobacco use VA-TOBACCO USER EVERY DAY 10/23/2021 [facility] [place] [facility] History of tobacco use VA-TOBACCO USER EVERY DAY 10/29/2020 [facility] [place] [facility] History of tobacco use VA-TOBACCO FORMER USER 10/10/2019 [facility] [place] [facility] History of tobacco use VA-TOBACCO USE SCHOOL [employer] NO 10/26/2018 [facility] [place] [facility] History of tobacco use CURRENT SMOKER 08/04/2017 [facility] [place] [facility] History of tobacco use QUIT TOBACCO USE IN PAST YEAR 01/31/2017 31 days [facility] [place] [facility] History of tobacco use CURRENT SMOKER 01/26/2016 [facility] History of tobacco use QUIT TOBACCO USE IN PAST YEAR 02/20/2015 [facility] History of tobacco use CURRENT SMOKER 06/17/2014 Reports being an off and on smoker -cigarette s [facility] History of tobacco use CURRENT SMOKER 09/14/2011 less than a pack a day [facility] History of tobacco use CURRENT SMOKER 03/09/2010 1 ppd [facility] History of tobacco use V1-PT DECLINES TOBACCO CESSATION MEDS 09/29/2009 [facility] History of tobacco use CURRENT SMOKER 01/29/2009 1 ppd [facility] History of tobacco use CURRENT SMOKER 03/17/2005 [facility] Plan of Care List of future care activities from [facility] facilities. Additional future care activities may be listed in the Assessment and Plan section. Date/Time Care Activity Care Activity Detail Facili ty 11/12/2024 AMBULATORY - MEDICINE AMBULATORY - MEDICI [facility] Advance Directives List of completed, amended, or rescinded Advance Directives on record at [facility] facilities. An actual copy of the Directive is not included. Date Advance Directive Provider Source 11/11/2023 ADVANCE DIRECTIVE JACOB DEL TORO [facility]
== END 2024-06-20 10:02 | disposition home or self-care (01) ==
LOC: HO.BBR 10:01
PROVIDERS: PCP Internal Medicine; Visit Provider Internal Medicine
DX: Z13.89 Encounter for screening for other disorder (principal)

== ENCOUNTER 2024-06-25 13:57 | Outpatient (AMB) | payer OTHER, SELFPAY ==
--- OUTSIDE RECORDS SUMMARY | 2024-06-25 14:14 | XMS_ITS | Continuity of Care Document ---
Author Name [facility] Organization [facility] Care Team Providers Care Geotechnical Intern Name Role Phone [facility] Unavailable Unavailable Problems Combined list of problems from Department of Defense and Veterans Affairs facilities. It does not include entries that were removed or entered in error. Problem Status Onset Date Problem Type Date of Resolution Comments Source Hemochromatosis (SNOMED CT 379183313) Active 02/14/18 96 Condition Nov 11, 2023 Entered By: PRINCESS RAMON Comment: keep HCT <16, ferritin <200. phlebotomy at [facility] changed to every other month, 450cc [facility] Benign prostatic hyperplasia Active Condition May 10, 2024 Entered By: PRINCESS RAMON Comment: caren Collins urology- plan for TURP [facility] Centriacinar emphysema Active Condition May 10, 2024 Entered By: PRINCESS RAMON Comment: caren collins pulmonary [facility] Erectile dysfunction (SNOMED CT 336516630) Active Condition [facility] Hemochromatosis Active Condition [facility] Impaired fasting glucose Active Condition [facility] Nicotine dependence (SNOMED CT 04319039) Active Condition [facility] [...] abnormal finding of lung field Active Diagnosis [facility] Medications Combined list of outpatient medications from [...] G RESPIR ATORY (INHAL ATION) ACTIVE 11/25/2024 [id number] FURCOLO,T PATY 2023 3 [facility] ALBUTEROL 90MCG/ACTUA T (CFC-F) INHL,ORAL,8 .5GM DOSE COUNTER INHALE 2 PUFFS BY MOUTH FOUR TIMES DAILY NEEDED FOR BREATHIN G RESPIR ATORY (INHAL ATION) DISCONT INUED 08/16/2024 [id number] FURCOLO,T PATY 2023 1 [facility] ALBUTEROL 90MCG/ACTUA T (CFC-F) INHL,ORAL,8 .5GM DOSE COUNTER INHALE 2 PUFFS BY MOUTH FOUR TIMES DAILY NEEDED FOR BREATHIN G RESPIR ATORY (INHAL ATION) DISCONT INUED 07/06/2023 [id number] [facility] 1 [facility] FINASTERIDE 5MG TAB TAKE ONE TABLET BY MOUTH ONCE DAILY FOR PROSTATE ORAL SUSPEND ED 02/13/2025 [id number] 5 FURCOLO,T PATY 2023 90 [facility] FINASTERIDE 5MG TAB TAKE ONE TABLET BY MOUTH ONCE DAILY FOR PROSTATE ORAL DISCONT INUED 01/13/2024 [id number] [facility] 2022 90 [facility] FLUTICASONE 250MCG/SALM ETEROL 50MCG INHL,ORAL,D ISKUS,60 INHALE 1 PUFF BY MOUTH TWICE DAILY FOR BREATHIN G - RINSE MOUTH AFTER USE RESPIR ATORY (INHAL ATION) ACTIVE 05/11/2025 [id number] 5 FURCOLO,T PATY 2024 3 [facility] FLUTICASONE 250MCG/SALM ETEROL 50MCG INHL,ORAL,D ISKUS,60 INHALE 1 PUFF BY MOUTH TWICE DAILY FOR BREATHIN G - RINSE MOUTH AFTER USE RESPIR ATORY (INHAL ATION) DISCONT INUED 08/16/2024 [id number] 5 FURCOLO,T PATY 2023 1 [facility] FLUTICASONE 250MCG/SALM ETEROL 50MCG INHL,ORAL,D ISKUS,60 INHALE 1 PUFF BY MOUTH TWICE DAILY FOR BREATHIN G - RINSE MOUTH AFTER USE RESPIR ATORY (INHAL ATION) DISCONT INUED 01/13/2024 [id number] DK CRUZ JAWED 2022 1 [facility] LIDOCAINE 5% PATCH APPLY 1 PATCH TOPICALL Y ONCE DAILY FOR NERVE PAIN (LEAVE PATCH ON FOR 12 HOURS, THEN REMOVE PATCH) TOPICA L ACTIVE 11/11/2024 [id number] FURCOLO,T PATY 2023 90 [facility] TAMSULOSIN HCL 0.4MG CAP TAKE ONE CAPSULE BY MOUTH AT BEDTIME ORAL SUSPEND ED 08/16/2024 [id number] 5 FURCOLO,T PATY 2023 90 [facility] TAMSULOSIN HCL 0.4MG CAP TAKE ONE CAPSULE BY MOUTH AT BEDTIME ORAL DISCONT INUED 01/13/2024 [id number] 4 DK CRUZ JAWED 2022 90 [facility] THEOPHYLLIN E 400MG 24HR TAB,SA TAKE ONE TABLET BY MOUTH ONCE DAILY ORAL DISCONT INUED BY PROVIDE R 04/06/2024 [id number] LAMONT,AN BARBARA 2023 30 [facility] TIOTROPIUM 2.5MCG/ACTU AT INHL,ORAL,6 0D,4GM INHALE 2 PUFFS BY MOUTH ONCE DAILY RESPIR ATORY (INHAL ATION) ACTIVE 05/11/2025 [id number] FURCOLO,T PATY 2024 3 [facility] TIOTROPIUM 2.5MCG/ACTU AT INHL,ORAL,6 0D,4GM INHALE 2 PUFFS BY MOUTH ONCE DAILY RESPIR ATORY (INHAL ATION) DISCONT INUED 08/16/2024 [id number] 5 FURCOLO,T PATY 2023 1 [facility] TIOTROPIUM 2.5MCG/ACTU AT INHL,ORAL,6 0D,4GM INHALE 2 PUFFS BY MOUTH ONCE DAILY RESPIR ATORY (INHAL ATION) DISCONT INUED 01/13/2024 [id number] DK CRUZ JAWED 2022 1 [facility] [place] [facility] Allergies, Adverse Reactions, Alerts Combined list of allergies from Department of Defense and Veterans Affairs facilities. It does not include entries that were removed or entered in error. Substance Category Reaction Severity Reaction type Status Date Reported Comments Source CHANTIX Propensity to adverse reactions to drug (finding) Anxiety active 0 [facility] [place] [facility] Immunizations Combined list of available immunizations from the Department of Defense and Veterans Affairs facilities. Immunization Series Date Given Administered By Site Reaction Lot Number CVX Code Drug Professor Criminal Justice Status Comments Source INFLUENZA, HIGH-DOSE, QUADRIVALENT 2022 PELON ESPINOSA LEFT DELTO ID [id number] A 197 complet ed Completed Series, ADMINISTE RED AT NE, [facility] [place] [facility] INFLUENZA VACCINE, QUADRIVALENT, ADJUVANTED 2021 205 complet ed [facility] [place] ZOSTER RECOMBINANT 2 2021 187 complet ed [facility] COVID-19 (MODERNA), MRNA, LNP-S, PF, 100 MCG OR 50 MCG DOSE 3 2020 207 complet ed MOD; [id number]; 2 [facility] [place] [facility] INFLUENZA VACCINE, QUADRIVALENT, ADJUVANTED 2020 205 complet ed [facility] [place] [facility] PNEUMOCOCCAL POLYSACCHARID E PPV23 2020 33 complet ed [facility] TDAP 2020 115 complet ed [facility] ZOSTER RECOMBINANT 1 2020 187 complet ed [facility] COVID-19 (MODERNA), MRNA, LNP-S, PF, 100 MCG/0.5 ML DOSE 2 2020 207 complet ed MOD; [id number]; 1 [facility] COVID-19 (MODERNA), MRNA, LNP-S, PF, 100 MCG/0.5 ML DOSE 1 2020 207 complet ed MOD; [id number]; 1 [facility] [...] May 01, 2024 08:17 AM Reporting Lab: [facility] [address] [address] Performing Lab: [facility]ITALRGRANDVIEW [facility]ENTERN [facility]OS[facility]ITALUSE[facility] [address] [address] [facility] [place] [facility] LIVER FUNCTION PROTEIN [MASS/VOLUM E] IN SERUM OR PLASMA 6.7 g/dL 6.0 - 8.3 05/04 Specimen Type: SERUM No comment entered. Ordering Provider: RADHA RAMON Report Released Date/Time: May 01, 2024 08:17 AM Reporting Lab: [facility]PITALRJACKSON MEDICAL CENTERTRN [facility]CHUSETS [facility] [address] [address] Performing Lab: [facility]OSPITALRGRANDVIEW MEDICAL CENTERN [facility]ITALUSEAL[facility] [address] [address] [facility]ITALRGRANDVIEW MEDICAL CENTERN M[place]CHUSE [facility] LIVER FUNCTION ALBUMIN [MASS/VOLUM E] IN SERUM OR PLASMA 4.0 g/dL 3.5 - 5.0 05/04 Specimen Type: SERUM No comment entered. Ordering Provider: RADHA RAMON Report Released Date/Time: May 01, 2024 08:17 AM Reporting Lab: [facility] [place] [facility] [address] [address] Performing Lab: [facility] [place] [facility] [address] [address] [facility] [place] [facility] LIVER FUNCTION ALKALINE PHOSPHATASE [ENZYMATIC ACTIVITY/VO LUME] IN SERUM OR PLASMA 81 U/L 40 - 150 05/04 Specimen Type: SERUM No comment entered. Ordering Provider: RADHA RAMON Report Released Date/Time: May 01, 2024 08:17 AM Reporting Lab: [facility] [place] [facility] [address] [address] Performing Lab: [facility] [place] [facility] [address] [address] [facility] [place] [facility] LIVER FUNCTION ASPARTATE AMINOTRANSF ERASE [ENZYMATIC ACTIVITY/VO LUME] IN SERUM OR PLASMA 18 U/L 5 - 34 05/04 Specimen Type: SERUM No comment entered. Ordering Provider: RADHA RAMON Report Released Date/Time: May 01, 2024 08:17 AM Reporting Lab: [facility] [place] [facility] [address] [address] Performing Lab: [facility] [place] [facility] [address] [address] [facility] [place] [facility] LIVER FUNCTION ALANINE AMINOTRANSF ERASE [ENZYMATIC ACTIVITY/VO LUME] IN SERUM OR PLASMA 32 U/L 05/04 Specimen Type: SERUM No comment entered. Ordering Provider: RADHA RAMON Report Released Date/Time: May 01, 2024 08:17 AM Reporting Lab: [facility] [place] [facility] [address] [address] Performing Lab: [facility] [place] [facility] [address] [address] [facility] [place] [facility] LIVER FUNCTION BILIRUBIN.T OTAL [MASS/VOLUM E] IN SERUM OR PLASMA 0.7 mg/dL 0.2 - 1.2 05/04 Specimen Type: SERUM No comment entered. Ordering Provider: RADHA RAMON Report Released Date/Time: May 01, 2024 08:17 AM Reporting Lab: [facility] [address] [address] Performing Lab: [facility] [place] [facility] [address] [address] [facility] HOSPITALRL [facility]ERN [facility] HOSPITALUSE [facility] HEMOGLOBI N A1C PANEL HEMOGLOBIN A1C/HEMOGLO [...] May 01, 2024 08:17 AM Reporting Lab: [facility] MASSUSE[address] [address] Performing Lab: [facility]OSPITALUSE[address] [address] [facility] CBC LEUKOCYTES [#/VOLUME] IN BLOOD BY AUTOMATED COUNT 7.46 10*3/u L 4.50 - 11.00 05/04 Specimen Type: BLOOD No comment entered. Ordering Provider: RADHA RAMON Report Released Date/Time: May 01, 2024 08:17 AM Reporting Lab: [facility] [address] [address] Performing Lab: [facility]OSPITALUSE[address] [address] [facility]ERN [facility] HOSPITALUSE [facility] CBC ERYTHROCYTE S [#/VOLUME] IN BLOOD BY AUTOMATED COUNT 4.82 10*6/u L 4.23 - 5.66 05/04 Specimen Type: BLOOD No comment entered. Ordering Provider: RADHA RAMON Report Released Date/Time: May 01, 2024 08:17 AM Reporting Lab: [facility] [address] [address] Performing Lab: [facility] [place] [facility] [address] [address] [facility] [place] [facility] CBC HEMOGLOBIN [MASS/VOLUM E] IN BLOOD 15.6 g/dL 12.8 - 17 05/04 Specimen Type: BLOOD No comment entered. Ordering Provider: RADHA RAMON Report Released Date/Time: May 01, 2024 08:17 AM Reporting Lab: [facility] [place] [facility] [address] [address] Performing Lab: [facility] [place] [facility] [address] [address] [facility] [place] [facility] CBC HEMATOCRIT [VOLUME FRACTION] OF BLOOD BY AUTOMATED COUNT 45.4 39.2 - 50.4 05/04 Specimen Type: BLOOD No comment entered. Ordering Provider: RADHA RAMON Report Released Date/Time: May 01, 2024 08:17 AM Reporting Lab: [facility] [place] [facility] [address] [address] Performing Lab: [facility] [place] [facility] [address] [address] [facility] [place] [facility] CBC MCV [ENTITIC VOLUME] BY AUTOMATED COUNT 94.2 fL 82 - 99 05/04 Specimen Type: BLOOD No comment entered. Ordering Provider: RADHA RAMON Report Released Date/Time: May 01, 2024 08:17 AM Reporting Lab: [facility] [place] [facility] [address] [address] Performing Lab: [facility] [place] [facility] [address] [address] [facility] [place] [facility] CBC MCHC [MASS/VOLUM E] BY AUTOMATED COUNT 34.4 g/dL 30.8 - 35.1 05/04 Specimen Type: BLOOD No comment entered. Ordering Provider: RADHA RAMON Report Released Date/Time: May 01, 2024 08:17 AM Reporting Lab: [facility] [place] [facility] [address] [address] Performing Lab: [facility] [place] [facility] [address] [address] [facility] [place] [facility] CBC PLATELETS [#/VOLUME] IN BLOOD BY AUTOMATED COUNT 158 10*3/u L 140 - 360 05/04 Specimen Type: BLOOD No comment entered. Ordering Provider: RADHA RAMON Report Released Date/Time: May 01, 2024 08:17 AM Reporting Lab: [facility] [place] [facility] [address] [address] Performing Lab: [facility] [place] [address] [address] [facility] [facility] CBC ERYTHROCYTE DISTRIBUTIO N WIDTH [RATIO] BY AUTOMATED COUNT 12.4 12.0 - 16.0 05/04 Specimen Type: BLOOD No comment entered. Ordering Provider: RADHA RAMON Report Released Date/Time: May 01, 2024 08:17 AM Reporting Lab: [facility] [place] [facility] [address] [address] Performing Lab: [facility] [place] [facility] [address] [address] [facility] [place] [facility] CBC MCH [ENTITIC MASS] BY AUTOMATED COUNT 32.4 pg 26.2 - 32.6 05/04 Specimen Type: BLOOD No comment entered. Ordering Provider: RADHA RAMON Report Released Date/Time: May 01, 2024 08:17 AM Reporting Lab: [facility] [place] [facility] [address] [address] Performing Lab: [facility] [place] [facility] [address] [address] [facility] [place] [facility] BASIC METABOLIC PANEL (fasting) UREA NITROGEN [MASS/VOLUM E] IN SERUM OR PLASMA 18 mg/dL 7 - 25 05/04 Specimen Type: SERUM No comment entered. Ordering Provider: RADHA RAMON Report Released Date/Time: May 01, 2024 08:17 AM Reporting Lab: [facility]ITALR [facility] [place] [facility] [address] [address] Performing Lab: [facility] HOSPITALRJACKSON MEDICAL CENTERTRN [facility] [address] [address] [facility]PITALR WSTRN [facility]OS[facility]ITALUSE [facility] BASIC METABOLIC PANEL (fasting) GLUCOSE [MASS/VOLUM E] IN SERUM OR PLASMA 123 mg/dL 65 - 100 05/04 H Specimen Type: SERUM No comment entered. Ordering Provider: RADHA RAMON Report Released Date/Time: May 01, 2024 08:17 AM Reporting Lab: [facility] HOSPITALRGRANDVIEW MEDICAL CENTERN [address] [address] Performing Lab: [facility]OSPITALRJACKSON MEDICAL CENTERTRN [facility]OS[facility]ITALUSE[address] [address] [facility]OSPITALRGRANDVIEW MEDICAL CENTERN [facility] HOSPITALUSE [facility] BASIC METABOLIC PANEL (fasting) SODIUM [MOLES/VOLU ME] IN SERUM OR PLASMA 139 mmol/L 135 - 145 05/04 Specimen Type: SERUM No comment entered. Ordering Provider: RADHA RAMON Report Released Date/Time: May 01, 2024 08:17 AM Reporting Lab: [facility] HOSPITALRJACKSON MEDICAL CENTERTRN [facility]OSPITALUSE[address] [address] Performing Lab: [facility] HOSPITALRL TRN [facility]OS[facility]ITALUSE[address] [address] [facility] HOSPITALRL TRN [facility] HOSPITALUSE [facility] BASIC METABOLIC PANEL (fasting) POTASSIUM [MOLES/VOLU ME] IN SERUM OR PLASMA 4.2 mmol/L 3.5 - 5.0 05/04 Specimen Type: SERUM No comment entered. Ordering Provider: RADHA RAMON Report Released Date/Time: May 01, 2024 08:17 AM Reporting Lab: [facility] HOSPITALRJACKSON MEDICAL CENTERTRN [facility] HOSPITALUSE[address] [address] Performing Lab: [facility] HOSPITALRL TRN [facility]OS[facility]ITALUSE[address] [address] [facility]OSPITALRJACKSON MEDICAL CENTERTRN MASSUSE [facility] BASIC METABOLIC PANEL (fasting) CHLORIDE [MOLES/VOLU ME] IN SERUM OR PLASMA 106 mmol/L 100 - 110 05/04 Specimen Type: SERUM No comment entered. Ordering Provider: RADHA RAMON Report Released Date/Time: May 01, 2024 08:17 AM Reporting Lab: [facility] HOSPITALRJACKSON MEDICAL CENTERTRN [facility]OSPITALUSE[address] [address] Performing Lab: [facility] HOSPITALRL WSTRN [facility] HOSPITALUSETS [address] [address] [facility] HOSPITALRGRANDVIEW MEDICAL CENTERN [facility] HOSPITALUSE [facility] BASIC METABOLIC PANEL (fasting) CARBON DIOXIDE, TOTAL [MOLES/VOLU ME] IN SERUM OR PLASMA 26 meq/L 20 - 30 05/04 Specimen Type: SERUM No comment entered. Ordering Provider: RADHA RAMON Report Released Date/Time: May 01, 2024 08:17 AM Reporting Lab: [facility] HOSPITALRJACKSON MEDICAL CENTERTRN [place] [address] [address] Performing Lab: [facility] HOSPITALRL WSTRN [place] [address] [address] [facility]ERN [facility] HOSPITALUSE [facility] BASIC METABOLIC PANEL (fasting) CALCIUM [MASS/VOLUM E] IN SERUM OR PLASMA 8.8 mg/dL 8.5 - 10.2 05/04 Specimen Type: SERUM No comment entered. Ordering Provider: RADHA RAMON Report Released Date/Time: May 01, 2024 08:17 AM Reporting Lab: [facility] HOSPITALRJACKSON MEDICAL CENTERTRN [place] [address] [address] Performing Lab: [facility] HOSPITALRL WSTRN [place] [address] [address] [facility] HOSPITALRGRANDVIEW MEDICAL CENTERN [facility] HOSPITALUSE [facility] BASIC METABOLIC PANEL (fasting) CREATININE [MASS/VOLUM E] IN SERUM OR PLASMA 0.87 mg/dL 0.50 - 1.40 05/04 Specimen Type: SERUM No comment entered. Ordering Provider: RADHA RAMON Report Released Date/Time: May 01, 2024 08:17 AM Reporting Lab: [facility] HOSPITALRJACKSON MEDICAL CENTERTRN MASSUSE[address] [address] Performing Lab: [facility] HOSPITALRJACKSON MEDICAL CENTERTRN [facility]OS[facility]ITALUSEAL[facility] [address] [address] [facility] HOSPITALRGRANDVIEW MEDICAL CENTERN [facility] BASIC METABOLIC PANEL (fasting) GLOMERULAR FILTRATION RATE/1.73 SQ M.PREDICTED [VOLUME RATE/AREA] IN SERUM, PLASMA OR BLOOD BY CREATININE- BASED FORMULA (CKD-EPI 2020) 89 mL/min 60 05/04 Specimen Type: SERUM No comment entered. Ordering Provider: RADHA RAMON Report Released Date/Time: May 01, 2024 08:17 AM Reporting Lab: [facility] [address] [address] Performing Lab: [facility] [address] [address] [facility] LIPID PANEL FASTING CHOLESTEROL [MASS/VOLUM E] IN SERUM OR PLASMA 162 mg/dL 05/04 Specimen Type: SERUM No comment entered. Ordering Provider: RADHA RAMON Report Released Date/Time: May 01, 2024 08:17 AM Reporting Lab: [facility] [address] [address] Performing Lab: [facility] HOSPITALRJACKSON MEDICAL CENTERTRN [facility] [address] [address] [facility] LIPID PANEL FASTING TRIGLYCERID E [MASS/VOLUM E] IN SERUM OR PLASMA 119 mg/dL 0 - 150 05/04 Specimen Type: SERUM No comment entered. Ordering Provider: RADHA RAMON Report Released Date/Time: May 01, 2024 08:17 AM Reporting Lab: [facility] HOSPITALRJACKSON MEDICAL CENTERTRN [facility]ITALUSE[facility] [address] [address] Performing Lab: [facility]ITALRJACKSON MEDICAL CENTERTRN [facility]OS[facility]ITALUSEAL[facility] [address] [address] [facility] LIPID PANEL FASTING CHOLESTEROL IN LDL [MASS/VOLUM E] IN SERUM OR PLASMA BY CALCULATION 97 mg/dL 0 - 129 05/04 Specimen Type: SERUM No comment entered. Ordering Provider: RADHA RAMON Report Released Date/Time: May 01, 2024 08:17 AM Reporting Lab: [facility] HOSPITALRL WSTRN [place] [facility] [address] [address] Performing Lab: [place] [facility] [facility] [address] [address] [facility] HOSPITALRL WSTRN [place] [facility] LIPID PANEL FASTING CHOLESTEROL .TOTAL/CHOL ESTEROL IN HDL [MASS RATIO] IN SERUM OR PLASMA 4.0 05/04 Specimen Type: SERUM No comment entered. Ordering Provider: RADHA RAMON Report Released Date/Time: May 01, 2024 08:17 AM Reporting Lab: [facility] [place] [place] [facility] [place] [address] [phone] Performing Lab: [facility]N [facility] [place] [address] [phone] [facility] LIPID PANEL FASTING CHOLESTEROL IN HDL [MASS/VOLUM E] IN SERUM OR PLASMA 41 mg/dL 40 - 60 05/04 Specimen Type: SERUM No comment entered. Ordering Provider: RADHA RAMON Report Released Date/Time: May 01, 2024 08:17 AM Reporting Lab: [facility]N [facility] [place] [address] [address] Performing Lab: [facility] WSTRN [facility]ITAL[facility] [place] [address] [address] [facility]ERN [facility] FERRITIN FERRITIN [MASS/VOLUM E] IN SERUM OR PLASMA 144 ng/mL 20 - 300 11/02 Specimen Type: SERUM No comment entered. Ordering Provider: RADHA RAMON Report Released Date/Time: Nov 01, 2023 12:47 PM Reporting Lab: [facility] [place] [place] [facility] [place] [address] [address] Performing Lab: [facility] [place] [facility] [place] [address] [phone] [facility] [place] [facility] IRON & TIBC PANEL IRON BINDING CAPACITY [MASS/VOLUM E] IN SERUM OR PLASMA 268 ug/dL 204 - 475 11/02 Specimen Type: SERUM No comment entered. Ordering Provider: FURCOLO,TIN A Report Released Date/Time: Nov 01, 2023 12:47 PM Reporting Lab: [facility] [place] [facility] [place] [address] [phone] Performing Lab: [facility] [place] [facility] [place] [address] [phone] [facility] [place] [facility] [facility] IRON & TIBC PANEL IRON [MASS/VOLUM E] IN SERUM OR PLASMA 195 ug/dL 40 - 160 11/02 H Specimen Type: SERUM No comment entered. Ordering Provider: RADHA RAMON Report Released Date/Time: Nov 01, 2023 12:47 PM Reporting Lab: [facility] [place] [facility] [address] [address] Performing Lab: [facility] [place] [facility] [address] [address] [facility] [place] [facility] IRON & TIBC PANEL IRON/IRON BINDING CAPACITY.TO KEVIN [MASS RATIO] IN SERUM OR PLASMA 72.8 20.0 - 50.0 11/02 H Specimen Type: SERUM No comment entered. Ordering Provider: RADHA RAMON Report Released Date/Time: Nov 01, 2023 12:47 PM Reporting Lab: [facility] [place] [facility] [address] [address] Performing Lab: [facility] [place] [facility] [address] [address] [facility] [place] [facility] IRON & TIBC PANEL TRANSFERRIN [MASS/VOLUM E] IN SERUM OR PLASMA 203 mg/dL 200 - 360 11/02 Specimen Type: SERUM No comment entered. Ordering Provider: RADHA RAMON Report Released Date/Time: Nov 01, 2023 12:47 PM Reporting Lab: [facility] [place] [facility] [address] [address] Performing Lab: [facility] [place] [facility] [address] [address] [facility] [place] [facility] LIVER FUNCTION PROTEIN [MASS/VOLUM E] IN SERUM OR PLASMA 6.4 g/dL 6.0 - 8.3 11/02 Specimen Type: SERUM No comment entered. Ordering Provider: RADHA RAMON Report Released Date/Time: Nov 01, 2023 12:47 PM Reporting Lab: [facility] [place] [facility] [address] [address] Performing Lab: [facility] [place] [facility] [address] [address] [facility] [place] [facility] LIVER FUNCTION ALBUMIN [MASS/VOLUM E] IN SERUM OR PLASMA 4.1 g/dL 3.5 - 5.0 11/02 Specimen Type: SERUM No comment entered. Ordering Provider: RADHA RAMON Report Released Date/Time: Nov 01, 2023 12:47 PM Reporting Lab: [facility] [place] [facility] [address] [address] Performing Lab: [facility] [place] [facility] [address] [address] [facility] [place] [facility] [place] LIVER FUNCTION ALKALINE PHOSPHATASE [ENZYMATIC ACTIVITY/VO LUME] IN SERUM OR PLASMA 75 U/L 40 - 150 11/02 Specimen Type: SERUM No comment entered. Ordering Provider: RADHA RAMON Report Released Date/Time: Nov 01, 2023 12:47 PM Reporting Lab: [facility] [place] [facility] [address] [address] Performing Lab: [facility] [place] [facility] [address] [address] [facility] [place] [facility] LIVER FUNCTION ASPARTATE AMINOTRANSF ERASE [ENZYMATIC ACTIVITY/VO LUME] IN SERUM OR PLASMA 22 U/L 5 - 34 11/02 Specimen Type: SERUM No comment entered. Ordering Provider: RADHA RAMON Report Released Date/Time: Nov 01, 2023 12:47 PM Reporting Lab: [facility] [place] [facility] [address] [address] Performing Lab: [facility] [place] [facility] [address] [address] [facility] [place] [facility] [place] LIVER FUNCTION ALANINE AMINOTRANSF ERASE [ENZYMATIC ACTIVITY/VO LUME] IN SERUM OR PLASMA 35 U/L 11/02 Specimen Type: SERUM No comment entered. Ordering Provider: RADHA RAMON Report Released Date/Time: Nov 01, 2023 12:47 PM Reporting Lab: [facility] [place] [address] [address] Performing Lab: [facility] [place] [address] [address] [facility] [place] [facility] LIVER FUNCTION BILIRUBIN.T OTAL [MASS/VOLUM E] IN SERUM OR PLASMA 0.6 mg/dL 0.2 - 1.2 11/02 Specimen Type: SERUM No comment entered. Ordering Provider: RADHA RAMON Report Released Date/Time: Nov 01, 2023 12:47 PM Reporting Lab: [facility] [place] [address] [address] Performing Lab: [facility] [address] [address] [facility] CBC LEUKOCYTES [#/VOLUME] IN BLOOD BY AUTOMATED COUNT 7.31 10*3/u L 4.50 - 11.00 11/02 Specimen Type: BLOOD No comment entered. Ordering Provider: RADHA RAMON Report Released Date/Time: Nov 01, 2023 12:47 PM Reporting Lab: [facility] [place] [address] [address] Performing Lab: [facility] [place] [address] [address] [facility] [place] [facility] CBC ERYTHROCYTE S [#/VOLUME] IN BLOOD BY AUTOMATED COUNT 5.14 10*6/u L 4.23 - 5.66 11/02 Specimen Type: BLOOD No comment entered. Ordering Provider: RADHA RAMON Report Released Date/Time: Nov 01, 2023 12:47 PM Reporting Lab: [facility] [place] [address] [address] Performing Lab: [facility] [address] [address] [facility] [place] [facility] CBC HEMOGLOBIN [MASS/VOLUM E] IN BLOOD 16.5 g/dL 12.8 - 17 11/02 Specimen Type: BLOOD No comment entered. Ordering Provider: RADHA RAMON Report Released Date/Time: Nov 01, 2023 12:47 PM Reporting Lab: [facility] [place] [facility] [address] [address] Performing Lab: [facility] [place] [facility] [address] [address] [facility] [place] [facility] CBC HEMATOCRIT [VOLUME FRACTION] OF BLOOD BY AUTOMATED COUNT 49.0 39.2 - 50.4 11/02 Specimen Type: BLOOD No comment entered. Ordering Provider: RADHA RAMON Report Released Date/Time: Nov 01, 2023 12:47 PM Reporting Lab: [facility] [place] [facility] [address] [address] Performing Lab: [facility] [place] [facility] [address] [address] [facility] [place] [facility] CBC MCV [ENTITIC VOLUME] BY AUTOMATED COUNT 95.3 fL 82 - 99 11/02 Specimen Type: BLOOD No comment entered. Ordering Provider: RADHA RAMON Report Released Date/Time: Nov 01, 2023 12:47 PM Reporting Lab: [facility] [place] [facility] [address] [address] Performing Lab: [facility] [place] [facility] [address] [address] [facility] [place] [facility] CBC MCHC [MASS/VOLUM E] BY AUTOMATED COUNT 33.7 g/dL 30.8 - 35.1 11/02 Specimen Type: BLOOD No comment entered. Ordering Provider: RADHA RAMON Report Released Date/Time: Nov 01, 2023 12:47 PM Reporting Lab: [facility] [place] [facility] [address] [address] Performing Lab: [facility] [place] [address] [address] [facility] [place] [facility] CBC PLATELETS [#/VOLUME] IN BLOOD BY AUTOMATED COUNT 182 10*3/u L 140 - 360 11/02 Specimen Type: BLOOD No comment entered. Ordering Provider: RADHA RAMON Report Released Date/Time: Nov 01, 2023 12:47 PM Reporting Lab: [facility] [place] [facility] [address] [address] Performing Lab: [facility] [place] [facility] [address] [address] [facility] [place] [facility] CBC ERYTHROCYTE DISTRIBUTIO N WIDTH [RATIO] BY AUTOMATED COUNT 12.3 12.0 - 16.0 11/02 Specimen Type: BLOOD No comment entered. Ordering Provider: RADHA RAMON Report Released Date/Time: Nov 01, 2023 12:47 PM Reporting Lab: [facility] [place] [facility] [address] [address] Performing Lab: [facility] [place] [facility] [address] [address] [facility] [place] [facility] CBC MCH [ENTITIC MASS] BY AUTOMATED COUNT 32.1 pg 26.2 - 32.6 11/02 Specimen Type: BLOOD No comment entered. Ordering Provider: RADHA RAMON Report Released Date/Time: Nov 01, 2023 12:47 PM Reporting Lab: [facility] [place] [address] [address] Performing Lab: [facility] [place] [facility] [address] [address] [facility] [place] [facility] Vital Signs Combined list of inpatient and outpatient Vital Signs from Department of Defense and Veterans Affairs, ranging from 12 months to all on record, depending upon the facility. Vital Sign Value Date Comments Source SYSTOLIC BLOOD PRESSURE 133 05/11/19 25 10:36:03 [facility] [place] [facility] DIASTOLIC BLOOD PRESSURE 79 025 10:36:03 [facility] [place] [facility] PULSE OXIMETRY 91 05/10/2024 10:36:03 [facility] [id number] 01/05 [facility] [place] [place] OFFICE O/P EST MOD 30-39 MIN [id number] Diagnos is: ICD-10- CM J43.2 Centril obular emphyse GORDON Bee MMED JAWED 01/12 [facility] En[facility] [id number] 01/13 [facility] En[facility] [id number] 01/14 [facility] [place] Out[facility] Encounter [id number] Diagnos is: ICD-10- CM R91.8 Other nonspec ific abnorma l finding of lung field KARLA MCKAY 01/14 [place] [facility] En[facility] [id number] 01/14 [facility] CMPTR OPHTH IMG OPTIC NERVE [id number] Diagnos is: ICD-10- CM H40.013 Open angle with borderl ine finding s, low risk, bilater al CLAUDIA CAMARA 03/01 [facility] [place] [facility] COMPRE OPH EXAM EST PT 1/> [id number] Diagnos is: ICD-10- CM 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, upper and lower eyelids CLAUDIA CAMARA 03/01 [facility] FIT SPECTACLES MULTIFOCAL [id number] Diagnos is: ICD-10- CM Z46.0 Encount er for fit/adj st of spectac les and contact lenses CLAUDIA CAMARA 03/01 [facility] En[facility] [id number] 03/17 [facility] En[facility] [id number] 03/22 [facility] En[facility] [id number] 03/23 [facility] [place] En[facility] [id number] 04/06 [facility] [place] En[facility] [id number] 05/11 [facility] OFF[facility] O/P EST MOD 30 MIN [id number] Diagnos is: ICD-10- CM J43.2 Centril obular emphyse GORDON Bee MMED JAWED 05/11 [facility] QNHP OL DIG ASSMT&MGMT 11-20 [id number] Diagnos is: ICD-10- CM R91.1 Solitar y pulmona ry nodule LUIGI GOMEZ L 05/11 [facility] En[facility] [id number] 07/25 [facility] En[facility] [id number] 07/26 [facility] En[facility] [id number] 08/14 [facility] En[facility] [id number] 08/29 [facility] En[facility] [id number] 09/04 [facility] En[facility] [id number] 09/28 [facility] En[facility] [id number] 10/27 [facility] En[facility] [id number] 10/30 [facility] En[facility] [id number] 10/31 [facility] En[facility] [id number] 11/06 [facility] OFFICE O/P EST HI 40 MIN [id number] 1. Diagnos is: ICD-10- CM J43.2 Centril obular emphyse ma YENNY,TI NA 11/10 [facility] [id number] 11/10 [facility] [id number] 1.11/15 [facility] En[facility] [id number] [facility] En[facility] [id number] 1.11/24 [facility] OFFICE O/P NEW MOD 45 MIN [id number] Diagnos is: ICD-10- CM L57.0 Actinic keratos is ALECIA ESTEBAN 11/28 [facility] [id number] 1.12/06 [facility] [id number] 1.01/03 [facility] [id number] 01/18 [facility] En[facility] [id number] 02/12 [facility] En[facility] [id number] 02/12 [facility] En[facility] [id number] 02/20 [facility] En[facility] [id number] 02/21 [facility] OFF[facility] O/P EST MOD 30 MIN [id number] Diagnos is: ICD-10- CM L71.1 Rhinoph germana CLAUDIA CAMARAE 03/20 [facility] CPTRZD OPH DX IMG ANT SGM [id number] Diagnos is: ICD-10- CM H40.013 Open angle with borderl ine finding s, low risk, bilater al CLAUDIA CAMARA 03/20 [facility] FIT SPECTACLES MULTIFOCAL [id number] Diagnos is: ICD-10- CM Z46.0 Encount er for fit/adj st of spectac les and contact lenses CLAUDIA CAMARA 03/22 [facility] En[facility] [id number] 04/11 [facility] En[facility] [id number] 04/12 [facility] En[facility] [id number] 04/18 [facility] [place] En[facility] [id number] [facility] Encounter [id number] [facility] OFF[facility] O/P EST MOD 30 MIN [id number] Diagnos is: ICD-10- CM J43.2 Centril obular emphyse ma YENNY,TI NA 05/10 [facility] [place] [facility] [place] NQHP OL DIG ASSMT&MGMT 21+ [id number] Diagnos is: ICD-10- CM Z12.2 Encntr screen for maligna nt neoplas m of respira tory organs KRISTYN CERVANTES 05/10 [facility] [place] [facility] [place] Outpatient Encounter [id number] 05/29 [facility] [place] [facility] [place] [facility] Outpatient Encounter [id number] 05/29 [facility] [place] [facility] Social History Combined list of available smoking, tobacco, and other social history from Department of Defense and Veterans Affairs facilities. Social History Type Response Date Comment Source Tobacco smoking status [facility]-TOBACCO USE SOME DAYS CIGARETTES 05/10/2024 [facility] [place] [facility] History of tobacco use [facility]-TO[facility]ACCO NEVER USED OTHER TYPE 05/10/2024 [facility] [place] [facility] History of tobacco use VA-TOBACCO USER EVERY DAY 01/12/2023 [facility] [place] [facility] History of tobacco use VA-TOBACCO USER EVERY DAY 10/23/2021 [facility] [place] [facility] History of tobacco use VA-TOBACCO USER EVERY DAY 10/29/2020 [facility] [place] [facility] History of tobacco use VA-TOBACCO FORMER USER 10/10/2019 [facility] [place] [facility] History of tobacco use 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 10/26/2018 [facility] [place] [facility] History of tobacco use CURRENT SMOKER 08/04/2017 [facility] [place] [facility] History of tobacco use QUIT TOBACCO USE IN PAST YEAR 01/31/2017 31 days [facility] [place] [facility] History of tobacco use CURRENT SMOKER 01/26/2016 [facility] History of tobacco use QUIT TOBACCO USE IN PAST YEAR 02/20/2015 [facility] History of tobacco use CURRENT SMOKER 06/17/2014 Reports being an off and on smoker -cigarette s [facility] History of tobacco use CURRENT SMOKER 09/14/2011 less than a pack a day [facility] History of tobacco use CURRENT SMOKER 03/09/2010 1 ppd [facility] History of tobacco use V1-PT DECLINES TOBACCO CESSATION MEDS 09/29/2009 [facility] History of tobacco use CURRENT SMOKER 01/29/2009 1 ppd [facility] History of tobacco use CURRENT SMOKER 03/17/2005 [facility] Plan of Care List of future care activities from [facility] facilities. Additional future care activities may be listed in the Assessment and Plan section. Date/Time Care Activity Care Activity Detail Facili ty 11/12/2024 AMBULATORY - MEDICINE AMBULATORY - MEDICI [facility] Advance Directives List of completed, amended, or rescinded Advance Directives on record at [facility] facilities. An actual copy of the Directive is not included. Date Advance Directive Provider Source 11/11/2023 ADVANCE DIRECTIVE JACOB DEL TORO [facility]
[2024-06-25 14:15] VITALS: BP 122/58; PULSE 105; O2SAT 93; BMI 35.3
--- NOTE | 2024-06-25 14:15 | A.OFFVIS_ITS ---
Vital Signs 06/25/24 14:15 Height 6 ft Weight 260 lb BMI 35.3 BP 122/58 L Blood Pressure Location Rt brachial Position Sitting Pulse 105 H Pulse Source Pulse Oximeter Pulse Oximetry (%) 93 Oxygen Delivery Method Room Air Intake Visit Reasons: COPD/clearance urology procedure 07/23 Allergies varenicline [From Chantix] Allergy (Mild, Verified 06/25/24 14:20) Unknown HPI HPI COPD/clearance urology procedure 07/23: Details: 73-year-old gentleman, recent 60 pack-year smoker, also underlying history of hemochromatosis on phlebotomy now followed for moderate COPD. He has been using Wixela and Spiriva together with albuterol MDI for underlying emphysema with reasonable control. He was tried on theophylline, however he did not have any symptomatic benefit. Patient has a follow-up CT chest at [facility] in April of 2026 that showed stable pulmonary nodules. He denies recent acute exacerbations. [facility] Medical History (Updated 06/25/24 @ 14:57 by Emil Dockery MD) Frequent urination Nocturia Other obesity not elsewhere classified Other male erectile dysfunction Other hemochromatosis Impacted cerumen Depressive disorder, not elsewhere classified Centrilobular emphysema Elevated PSA Hemochromatosis Pulmonary nodules COPD (chronic obstructive pulmonary disease) Personal history of nicotine dependence BPH (benign prostatic hyperplasia) Erectile dysfunction Surgical History (Updated 02/14/24 @ 10:15 by CHADD Paige) History of tonsillectomy History of appendectomy History of colonoscopy Family History (Updated 02/09/24 @ 10:58 by CHADD Paige) Mother Sepsis Father GI cancer Social History Patient Tobacco Use Status: Current someday Tobacco user Tobacco use type: Cigarette Years Smoked: smoked for 60 years 1PPD, quit a few days ago. started at 11 Review of Systems Const Denies daytime sleepiness, Denies excessive sweating, Denies fatigue, Denies fever(s), Denies lethargy, Denies malaise, Denies night sweats, Denies snoring and Denies weight loss Eyes Denies blurry vision and Denies itchy eyes ENT Denies nasal congestion, Denies post nasal drip, Denies sinus pain, Denies sinus pressure and Denies other ( Thrush) Card Denies chest pain, Denies pedal edema, Denies dyspnea, Denies orthopnea and Denies paroxysmal nocturnal dyspnea Resp Denies cough, Denies hemoptysis, Denies excessive phlegm production, Denies dyspnea, Denies snoring and Denies wheezing GI Denies abdominal pain and Denies heartburn Musc Denies myalgias, Denies arthralgias and Denies joint swelling Skin/Breast Denies rash Neuro Denies memory loss and Denies seizure-like activity Psych Denies abnormal sleep pattern, Denies anxiety and Denies memory loss Endo Denies excessive sweating, Denies fatigue and Denies heat intolerance Colton/Lymph Denies easy bruising Aller/Immun Denies itchy eyes, Denies seasonal rhinorrhea and Denies wheezing Physical Exam Vital Signs: Last Vital Signs Pulse 105 H 06/25/24 14:15 BP 122/58 L 06/25/24 14:15 Pulse Ox 93 06/25/24 14:15 Oxygen Delivery Method Room Air 06/25/24 14:15 BMI result Body Mass Index 35.3 Const General: no acute distress and alert Nutritional Appearance: obese Orientation/consciousness: Other orientation findings ( oriented) HEENT Head: Yes atraumatic Eyes General: appearance normal, both eyes and all related structures Sclerae: sclerae normal EOM: EOMs intact bilaterally Neck Neck: Yes supple Lymphatic: no lymphadenopathy noted Resp Effort & Inspection: normal respiratory effort and no use of accessory muscles Auscultation: clear to auscultation bilaterally Cardio Rate: regular rate Rhythm: regular rhythm Heart sounds: no gallops, no murmurs and no rubs Skin General skin exam: other ( warm) Extrem General: No clubbing, No cyanosis and No edema Assessment & Plan Assessment & Plan (1) COPD (chronic obstructive pulmonary disease): Code(s): J44.9 - Chronic obstructive pulmonary disease, unspecified Category: Medical Plan: Well controlled on current regimen of Wixela, Spiriva, and albuterol MDI. Continue current regimen. (2) Personal history of nicotine dependence: Comment: (onset 11yo, 1ppd x 60yrs - recently quitting 2023 - [facility]) Code(s): Z87.891 - Personal history of nicotine dependence Category: Medical Plan: Results of lung cancer screening CT chest from April of 2024 reviewed, no worrisome nodules, continue with yearly screening. (3) Encounter for preoperative pulmonary examination: Code(s): Z01.811 - Encounter for preprocedural respiratory examination Category: Medical Plan: At this time patient is at low risk for pulmonary complications for the proposed prostate surgery either under general anesthesia or monitored anesthesia care. Coding Level of Care Code Est Pt Level 4 (95959) Complex EM visit Add On G2211 Diagnoses COPD (chronic obstructive pulmonary disease) J44.9 Personal history of nicotine dependence Z87.891 Encounter for preoperative pulmonary examination Z01.811
== END 2024-06-25 14:34 | disposition home or self-care (01) ==
PROVIDERS: PCP Internal Medicine; Referring Provider Internal Medicine Pulmonary Disease; Visit Provider Internal Medicine Pulmonary Disease
DX: J44.9 Chronic obstructive pulmonary disease, unspecified (principal); Z87.891 Personal history of nicotine dependence; Z01.811 Encounter for preprocedural respiratory examination
CPT/HCPCS: 99214; G2211

== ENCOUNTER → 2024-06-25 13:57 | Outpatient (BNVA) | payer OTHER, SELFPAY | PROVIDERS: PCP Internal Medicine; Visit Provider Internal Medicine Pulmonary Disease | DX: Z01.811 Encounter for preprocedural respiratory examination (principal); J44.9 Chronic obstructive pulmonary disease, unspecified; Z87.891 Personal history of nicotine dependence | CPT/HCPCS: 99212 ==

== ENCOUNTER 2024-07-12 08:51 | Outpatient (AMB) | payer OTHER, SELFPAY ==
--- NOTE | 2024-07-12 09:06 | MHC.OFFVIS ---
Intake Visit Reasons: H&P Greenlight laser Intake Note: Patient is present for H&P GREENLIGHT Urology Medication:TAMSULOISN,FINASTERIDE Antibiotic Allergy:NONE Blood Thinner:NONE Telephone Order Dispatcher Required: No Allergies varenicline [From Chantix] Allergy (Mild, Verified 07/12/24 09:07) Unknown HPI Comments Details: Rene is a pleasant male. He is a patient of Dr. Roblero. He seen for the following urologic conditions - lower urinary tract symptoms Large median lobe noted in office cystoscopy Continued weakness of urination Here for discussion of GreenLight therapy Questions addressed including expectations perioperatively, postoperative care, postoperative symptom course Lower urinary tract symptoms On combination therapy - finasteride and tamsulosin Persistent weakness of stream with urinary urgency Bladder ultrasound - large PVR, 50 g prostate PFSH Medical History (Updated 06/25/24 @ 14:57 by Emil Dockery MD) Frequent urination Nocturia Other obesity not elsewhere classified Other male erectile dysfunction Other hemochromatosis Impacted cerumen Depressive disorder, not elsewhere classified Centrilobular emphysema Elevated PSA Hemochromatosis Pulmonary nodules COPD (chronic obstructive pulmonary disease) Personal history of nicotine dependence BPH (benign prostatic hyperplasia) Erectile dysfunction Surgical History (Updated 02/14/24 @ 10:15 by CHADD Paige) History of tonsillectomy History of appendectomy History of colonoscopy Family History (Updated 02/09/24 @ 10:58 by CHADD Paige) Mother Sepsis Father GI cancer Social History Patient Tobacco Use Status: Current someday Tobacco user Tobacco use type: Cigarette Years Smoked: smoked for 60 years 1PPD, quit a few days ago. started at 11 Review of Systems Const Denies chills and Denies fever(s) Card Reports no additional complaints and Denies syncope Resp Denies cough GI Denies abdominal pain and Denies heartburn Reports as per HPI and Denies change in libido Neuro Denies syncope Psych Denies change in libido Endo Denies change in libido Physical Exam Const General: cooperative, healthy appearing, comfortable and no acute distress Orientation/consciousness: patient oriented x3 HEENT Face and sinus: Yes normal facial exam Mouth: moist mucous membranes Neck Neck: Yes normal visual inspection, Yes full ROM and Yes trachea midline Chest Chest palpation & inspection: normal inspection of the chest Resp Effort & Inspection: normal respiratory effort, able to speak in complete sentences and no respiratory distress GI Inspection: Yes normal to inspection Back/Spine/Pelvis Cervical Spine: normal cervical lordosis Thoracic/Lumbar Spine: thoracic and lumbar spine normal to inspection Skin General skin exam: no rashes or lesions noted Neuro General: patient oriented x3, gait normal, tone normal and moves all extremities Extrem General: Yes normal to inspection and Yes capillary refill normal Assessment & Plan Assessment & Plan (1) BPH (benign prostatic hyperplasia): Code(s): N40.0 - Benign prostatic hyperplasia without lower urinary tract symptoms Category: Medical Plan Risks, benefits and alternatives to therapy were discussed. These include but are not limited to infection, bleeding, damage to local organs and tissues, need for further interventions. Anesthetic risks regarding cardiac arrhythmia, blood clots, and potential mortality were discussed. The patient understands the typical recovery time and the outpatient nature of the procedure. After consideration of these risks the patient gives full informed consent and they wish to move ahead with the procedure. Greenlight laser Patient Instructions: This note is constructed using voice recognition software. While every effort has been made to ensure accuracy recreation leader errors may have been included. Imaging studies, laboratory and physical exam results were discussed and reviewed in detail. No major barriers to patient understanding were identified. An opportunity to ask questions regarding the treatment plan was provided. All questions were answered. The patient expressed understanding and agreement with the above treatment plan. The patient is aware they should contact our office by phone for worsening of their current condition or the appearance of new urologic symptoms. Compliance is encouraged with any medications and followup testing that is ordered. It is a privilege to participate in the urologic care of your patient. If you have any questions or concerns regarding treatment for the above conditions, or other urologic issues, please do not hesitate to contact me. The office telephone contact is [phone]. Sincerely, Dr Roe Serrano MD, [facility] - Urology Compassionate Specialist Care for the Genitourinary System Coding Level of Care Code Est Pt Level 3 (66901) Complex EM visit Add On G2211 Diagnoses BPH (benign prostatic hyperplasia) N40.0
== END 2024-07-12 09:43 | disposition home or self-care (01) ==
LOC: HO.HUSH 08:52
PROVIDERS: PCP Obstetrics & Gynecology; Visit Provider Urology
DX: Z13.9 Encounter for screening, unspecified (principal); N40.0 Benign prostatic hyperplasia without lower urinary tract symptoms
CPT/HCPCS: 99213; G2211

== ENCOUNTER → 2024-07-12 08:51 | Outpatient (BNVA) | payer OTHER, SELFPAY | PROVIDERS: PCP Obstetrics & Gynecology; Visit Provider Urology | DX: N40.0 Benign prostatic hyperplasia without lower urinary tract symptoms (principal) | CPT/HCPCS: 81003; 99212 ==

== ENCOUNTER 2024-07-23 08:46 | Day surgery (SDC) | payer OTHER, SELFPAY ==
--- OUTSIDE RECORDS SUMMARY | 2024-06-15 06:55 | XMS_ITS ---
Author Name [facility] [facility] [place] Address [address] [place] [address] Care Team Providers Care Shingles Roofer Helper Name Role Phone PRINCESS RAMON Primary [...] PART B Jul 15, 2013 PART B [id number] [phone] BRAD CUENCA JR PATIENT MEDICARE (WNR) MEDICARE (M) PART A Jul 15, 2013 PART A [id number] BRAD CUENCA JR PATIENT MEDICARE (WNR) MEDICARE (M) PART A Jul 15, 2013 PART A [id number] [phone] BRAD CUENCA JR PATIENT MEDICARE (WNR) MEDICARE (M) PART B Jul 15, 2013 PART B [id number] [phone] BRAD CUENCA JR PATIENT Selected Encounter This section includes the information on record at [place] for the Encounter. Date/Time Encounter Type Encounter Description Reason Pro vider Source Aug 15, 2023 02:55 PM Outpatient Encounter ADMIN PAT ACTIVTIES (MASNONCT) IHE Encounter Template Text not used by [place] Plan of Treatment: Future Appointments (+ 6 months) and Future Tests (+/- 45 days) The Plan of Treatment section includes future care activities for the [facility] [place] [facility] This section includes future appointments and future orders which are active, pending or scheduled. Future Appointments This section includes appointments that were scheduled to occur 6 months from the date of the Encounter, up to a maximum of 20 appointments. The data comes from all [place] treatment facilities. Appointment Date/Time Appointment Type Appointme nt Facility Name Nov 11, 2023 09:00 AM AMBULATORY - MEDICINE [place] [facility] [place] [facility] Nov 25, 2023 09:30 AM AMBULATORY - MEDICINE [facility] [place] [facility] Nov 29, 2023 09:00 AM [facility] Social History: Smoking Status (Most current) and Tobacco Use (All prior to encounter date) This section includes the most current, and the historical, smoking and tobacco- related health factors from the [place] facility where the Encounter took place. Current Smoking Status This section includes the most current smoking, or tobacco-related health factor, from the [place] facility where the Encounter took place. Date/Time Current Smoking Status Comment [facility] Jan 12, 2023 09:00 AM VA-TOBACCO USER EVERY DAY IN [facility] [place] [facility] Tobacco Use History This section includes a history of the smoking, or tobacco-related health factors, that were collected on or before the date of the Encounter. The data comes from the [place] facility where the Encounter took place. Date/Time Smoking Status/Tobac co Use Comment Facility Jan 12, 2023 09:00 AM VA-TOBACCO USE 30 YEARS OR MORE IN [facility] [place] [facility] Jan 12, 2023 09:00 AM VA-TOBACCO USE ADVICE IN [facility] [place] [facility] Jan 12, 2023 09:00 AM VA-TOBACCO USE SOFTWARE ENGINEER NO [facility] [place] [facility] Jan 12, 2023 09:00 AM VA-TOBACCO USE MED NO IN [facility] [place] [facility] Jan 12, 2023 09:00 AM VA-TOBACCO USER EVERY DAY [facility] [place] [facility] Oct 23, 2021 08:00 AM VA-TOBACCO DOESNT USE WI 30 MIN WAKEUP [facility] [place] [facility] Oct 23, 2021 08:00 AM VA-TOBACCO USE 30 YEARS OR MORE [facility] [place] [facility] Oct 23, 2021 08:00 AM VA-TOBACCO USE ADVICE [facility] [place] [facility] Oct 23, 2021 08:00 AM VA-TOBACCO USE SOFTWARE ENGINEER NO [facility] [place] [facility] Oct 23, 2021 08:00 AM VA-TOBACCO USE MED NO [facility] [place] [facility] Oct 23, 2021 08:00 AM VA-TOBACCO USER EVERY DAY [facility] [place] [facility] Oct 29, 2020 10:00 AM VA-TOBACCO DOESNT USE WI 30 MIN WAKEUP IN [facility] [place] [facility] Oct 29, 2020 10:00 AM VA-TOBACCO USE 30 YEARS OR MORE IN [facility] [place] [facility] Oct 29, 2020 10:00 AM VA-TOBACCO USE ADVICE IN [facility] [place] [facility] Oct 29, 2020 10:00 AM VA-TOBACCO USE SOFTWARE ENGINEER YES IN [facility] [place] [facility] Oct 29, 2020 10:00 AM VA-TOBACCO USE MED NOTIFY PROVIDER IN [facility] [place] [facility] Oct 29, 2020 10:00 AM VA-TOBACCO USER EVERY DAY IN [facility] [place] [facility] Oct 10, 2019 11:00 AM VA-TOBACCO FORMER USER [facility] [place] [facility] Oct 10, 2019 11:00 AM VA-TOBACCO QUIT < 1 YEAR [facility] [place] [facility] Oct 26, 2018 07:55 AM VA-TOBACCO USE > 15 LESS THAN 30 YEARS [facility] [place] [facility] Oct 26, 2018 07:55 AM VA-TOBACCO USE ADVICE [facility] [place] [facility] Oct 26, 2018 07:55 AM VA-TOBACCO USE SOFTWARE ENGINEER NO [facility] [place] [facility] Oct 26, 2018 07:55 AM VA-TOBACCO USE MED NO [facility] [place] [facility] Oct 26, 2018 07:55 AM VA-TOBACCO USE WI 30 MIN [facility] [place] [facility] Oct 26, 2018 07:55 AM VA-TOBACCO USER EVERY DAY IN [facility] [place] [facility] Aug 04, 2017 08:53 AM [facility] [place] [facility] Aug 04, 2017 08:53 AM V1-PT DECLINES REF TO TOBACCO CESS PRGM [facility] [place] [facility] Aug 04, 2017 08:53 AM V1-PT DECLINES TOBACCO CESSATION MEDS [facility] [place] [facility] Aug 04, 2017 08:53 AM V1-PT THINKING ABOUT QUIT TOBACCO USE [facility] [place] [facility] Jan 31, 2017 09:51 AM QUIT TOBACCO USE IN PAST YEAR 31 days [facility] [place] [facility] Jan 26, 2016 08:36 AM CURRENT SMOKER [facility] [place] [facility] Jan 26, 2016 08:36 AM V1-PT DECLINES REF TO TOBACCO CESS PRGM [facility] [place] [facility] Jan 26, 2016 08:36 AM V1-PT DECLINES TOBACCO CESSATION MEDS [facility] [place] [facility] Jan 26, 2016 08:36 AM V1-PT THINKING ABOUT QUIT [facility]ACCO [facility] [place] [facility] Feb 20, 2015 10:25 AM QUIT TOBACCO USE IN PAST YEAR [facility] [place] [facility] June 17, 2014 07:37 AM CURRENT SMOKER Reports being an off and on smoker -cigarettes [facility] [place] [facility] June 17, 2014 07:37 AM V1-PT DECLINES REF TO TOBACCO CESS PRGM [facility] [place] [facility] June 17, 2014 07:37 AM V1-PT DECLINES TOBACCO CESSATION MEDS [facility] [place] [facility] June 17, 2014 07:37 AM V1-PT THINKING ABOUT QUIT TOBACCO USE [facility] [place] [facility] Sep 14, 2011 09:51 AM CURRENT SMOKER less than a pack a day [facility] [place] [facility] Sep 14, 2011 09:51 AM V1-PT DECLINES REF TO TOBACCO CESS PRGM [facility] Sep 14, 2011 09:51 AM V1-PT DECLINES TOBACCO CESSATION MEDS [facility] Sep 14, 2011 09:51 AM V1-PT THINKING ABOUT QUIT TOBACCO USE [facility] Mar 09, 2010 09:32 AM [facility] Mar 09, 2010 09:32 AM V1-PT DECLINES TOBACCO CESSATION MEDS [facility] Mar 09, 2010 09:32 AM V1-PT REF TO NON-VA TOBACCO CESS PR[facility] Mar 09, 2010 09:32 AM V1-PT THINKING ABOUT QUIT TO[facility]ACCO [facility] Sep 29, 2009 02:07 PM V1-PT DECLINES REF TO TOBACCO CESS PRGM [facility] Sep 29, 2009 02:07 PM V1-PT DECLINES TOBACCO CESSATION MEDS [facility] Sep 29, 2009 02:07 PM V1-PT NOT INTERESTED IN QUIT TOBACCO USE [facility] Jan 29, 2009 11:00 AM CURRENT SMOKER 1 ppd [facility] Jan 29, 2009 11:00 AM V1-PT DECLINES TOBACCO CESSATION MEDS [facility] Jan 29, 2009 11:00 AM V1-PT READY TO QUIT TOBACCO USE [facility] Mar 17, 2005 08:36 AM CURRENT SMOKER [facility] Advance Directives: All historical and current Section Date Range: From patient's date of to the date document was created. This section includes ALL of a patient's completed or amended [place] Advance and Rescinded Directives. The entries below indicate that a directive exists for the patient, but an actual copy is not included with this document. The data comes from all [place] facilities. Date Advance Directives Provider Source Nov [...] 2023@14:55 ENTRY DATE: AUG 15, 2023@14:56:24 AUTHOR: ELHAM ARREDONDO COSIGNER: URGENCY: STATUS: COMPLETED Date: Aug Division: [facility] referred by Pharmacy Call Center for medication renewal: Non-controlled/maintenance medication Medications requested: [id number] ALBUTEROL 90MCG (CFC-F) 200D ORAL INHL Defer to primary care provider To be mailed . Please review and renew if appropriate. *This note was generated by [facility]/[place] Pharmacy Customer Care. If you have any questions or need assistance, do not contact this author. Please refer all questions to your local, on-site pharmacy departments. /natalie/ ELHAM ARREDONDO CPhT [place], [place]/Pharmacy Customer Care Signed: 08/15/2023 14:57 Receipt Acknowledged By: 08/16/2023 08:05 /natalie/ PRINCESS RAMON D.O. PHYSICIAN 08/16/2023 08:26 /natalie/ MARLEE CLINTON, RN REGISTERED NURSE ELHAM ARREDONDO IN [facility]
--- OUTSIDE RECORDS SUMMARY | 2024-06-15 06:55 | XMS_ITS | Encounter Summary ---
Author Name [facility] Organization [facility] Address [address] [place] [address] Care Team Providers Care Level Vial Inspector And Tester Name Role Phone PRINCESS RAMON Primary Care [...] PART A Jul 15, 2013 PART A [id number] BRAD CUENCA JR PATIENT MEDICARE (WNR) MEDICARE (M) PART B Jul 15, 2013 PART B [id number] BRAD CUENCA JR PATIENT MEDICARE (WNR) MEDICARE (M) PART A Jul 15, 2013 PART A [id number] BRAD CUENCA JR PATIENT MEDICARE (WNR) MEDICARE (M) PART B Jul 15, 2013 PART B [id number] BRAD CUENCA JR PATIENT Selected Encounter This section includes the information on record at MD for the Encounter. Date/Time Encounter Type Encounter Description Reason Pro vider Source Jan 04, 2024 04:31 PM Outpatient Encounter COMMUNITY CARE CONSULT IHE Encounter Template Text not used by MD Plan of Treatment: Future Appointments (+ 6 months) and Future Tests (+/- 45 days) The Plan of Treatment section includes future care activities for the patient from [facility] This section includes future appointments and future orders which are active, pending or scheduled. Future Appointments This section includes appointments that were scheduled to occur 6 months from the date of the Encounter, up to a maximum of 20 appointments. The data comes from all [facility]. Appointment Date/Time Appointment Type Appointme nt Facility Name Feb 21, 2024 09:45 AM AMBULATORY - MEDICINE [place] [facility] [place] [facility] Feb 27, 2024 10:00 AM AMBULATORY - MEDICINE [place] [facility] [place] [facility] Mar 20, 2024 09:00 AM AMBULATORY - MEDICINE MD [facility] [place] [facility] Mar 20, 2024 11:15 AM AMBULATORY - MEDICINE MD [facility] [place] [facility] May 08, 2024 01:45 PM AMBULATORY - MEDICINE MD [facility] [place] [facility] May 10, 2024 09:30 AM AMBULATORY - NONE MD [facility] [place] [facility] May 10, 2024 10:30 AM [facility]ULATORY - [facility] Active, Pending, and Scheduled Orders This section includes a listing of several types of active, pending, and scheduled orders, including clinic medications orders, diagnostic test orders, procedure orders and consult orders; where the start date of the order is 45 days before the date of the Encounter or 45 days after the date of theEncounter. The data comes from all [facility]. Test Date/Time Test Type Test Details Facility Name Jan 05, 2024 08:22 AM Consult Order COMMUNITY CARE-PULMONARY REHAB Cons Instructor D[employer] Choice [facility] Social History: Smoking Status (Most current) and Tobacco Use (All prior to encounter date) This section includes the most current, and the historical, smoking and tobacco- related health factors from the MD facility where the Encounter took place. Current Smoking Status This section includes the most current smoking, or tobacco-related health factor, from the MD facility where the Encounter took place. Date/Time Current Smoking Status Comment Shanell gale Jan 12, 2023 09:00 AM VA-TOBACCO USER EVERY DAY MD [facility] [place] [facility] Tobacco Use History This section includes a history of the smoking, or tobacco-related health factors, that were collected on or before the date of the Encounter. The data comes from the MD facility where the Encounter took place. Date/Time Smoking Status/Tobac co Use Comment [facility] Jan 12, 2023 09:00 AM VA-TOBACCO USE 30 YEARS OR MORE [facility] [place] [facility] Jan 12, 2023 09:00 AM VA-TOBACCO USE ADVICE [facility] [place] [facility] Jan 12, 2023 09:00 AM VA-TOBACCO USE PATIENT ACCESS SPECIALIST NO [facility] [place] [facility] Jan 12, 2023 09:00 AM VA-TOBACCO USE MED NO [facility] [place] [facility] Jan 12, 2023 09:00 AM VA-TOBACCO USER EVERY DAY MD [facility] [place] [facility] Oct 23, 2021 08:00 AM VA-TOBACCO DOESNT USE WI 30 MIN WAKEUP MD [facility] [place] [facility] Oct 23, 2021 08:00 AM VA-TOBACCO USE 30 YEARS OR MORE MD [facility] [place] [facility] Oct 23, 2021 08:00 AM VA-TOBACCO USE ADVICE [facility] [place] [facility] Oct 23, 2021 08:00 AM VA-TOBACCO USE PATIENT ACCESS SPECIALIST NO MD [facility] [place] [facility] Oct [...] Oct 29, 2020 10:00 AM VA-TOBACCO USE PATIENT ACCESS SPECIALIST YES MD [facility] [place] [facility] Oct 29, 2020 10:00 AM VA-TOBACCO USE MED [facility] [place] [facility] Oct 29, 2020 10:00 AM VA-TOBACCO USER EVERY DAY MD [facility] [place] [facility] Oct 10, 2019 11:00 AM VA-TOBACCO FORMER USER [facility] [place] [facility] Oct 10, 2019 11:00 AM VA-TOBACCO QUIT < 1 YEAR MD [facility] [place] [facility] Oct 26, 2018 07:55 AM VA-TOBACCO USE > 15 LESS THAN 30 YEARS MD [facility] [place] [facility] Oct 26, 2018 07:55 AM VA-TOBACCO USE ADVICE [facility] [place] [facility] Oct 26, 2018 07:55 AM VA-TOBACCO USE PATIENT ACCESS SPECIALIST NO MD [facility] [place] [facility] Oct 26, 2018 07:55 AM VA-TOBACCO USE MED NO [facility] [place] [facility] Oct 26, 2018 07:55 AM VA-TOBACCO USE WI 30 MIN OF WAKEUP MD [facility] [place] [facility] Oct 26, 2018 07:55 AM VA-TOBACCO USER EVERY DAY MD [facility] [place] [facility] Aug 04, 2017 08:53 AM CURRENT SMOKER MD [facility] [place] [facility] Aug 04, 2017 08:53 AM V1-PT DECLINES REF TO TOBACCO CESS PRGM [facility] [place] [facility] Aug 04, 2017 08:53 AM V1-PT DECLINES TOBACCO CESSATION MEDS MD [facility] [place] [facility] Aug 04, 2017 08:53 AM V1-PT THINKING ABOUT QUIT TOBACCO USE [facility] [place] [facility] Jan 31, 2017 09:51 AM QUIT TOBACCO USE IN PAST YEAR 31 days MD [facility] [place] [facility] Jan 26, 2016 08:36 AM CURRENT SMOKER [facility] [place] [facility] Jan 26, 2016 08:36 AM V1-PT DECLINES REF TO TOBACCO CESS PRGM MD [facility] [place] [facility] Jan 26, 2016 08:36 AM V1-PT DECLINES TOBACCO CESSATION MEDS [facility] [place] [facility] Jan 26, 2016 08:36 AM V1-PT THINKING ABOUT QUIT [facility]ACCO [facility] [place] [facility] Feb 20, 2015 10:25 AM QUIT TOBACCO USE IN PAST YEAR [facility] [place] [facility] June 17, 2014 07:37 AM CURRENT SMOKER Reports being an off and on smoker -cigarettes [place] [facility] [place] [facility] June 17, 2014 07:37 AM V1-PT DECLINES REF TO TOBACCO CESS PR[facility] [place] [facility] June 17, 2014 07:37 AM V1-PT DECLINES TOBACCO CESSATION MEDS [place] [facility] [place] [facility] June 17, 2014 07:37 AM V1-PT THINKING ABOUT QUIT TOBACCO USE [facility] Sep 14, 2011 09:51 AM CURRENT SMOKER less than a pack a day [facility] Sep 14, 2011 09:51 AM V1-PT DECLINES REF TO TOBACCO CESS PRGM [facility] Sep 14, 2011 09:51 AM V1-PT DECLINES TOBACCO CESSATION MEDS [facility] Sep 14, 2011 09:51 AM V1-PT THINKING ABOUT QUIT TOBACCO USE [facility] Mar 09, 2010 09:32 AM CURRENT SMOKER [address] [facility] [place] [facility] Mar 09, 2010 09:32 AM V1-PT DECLINES TOBACCO CESSATION MEDS [facility] Mar 09, 2010 09:32 AM V1-PT REF TO NON-VA TOBACCO CESS PR[facility] Mar 09, 2010 09:32 AM V1-PT THINKING ABOUT QUIT [facility]BACCO [facility] [place] [facility] Sep 29, 2009 02:07 PM V1-PT DECLINES REF TO TOBACCO CESS PR[facility] [place] [facility] Sep 29, 2009 02:07 PM V1-PT DECLINES TOBACCO CESSATION MEDS [facility] [place] [facility] Sep 29, 2009 02:07 PM V1-PT NOT INTERESTED IN QUIT TOBACCO USE [facility] [place] [facility] Jan 29, 2009 11:00 AM CURRENT SMOKER 1 ppd MD [facility]TR [facility] Jan 29, 2009 11:00 AM V1-PT DECLINES TOBACCO CESSATION MEDS [facility] Jan 29, 2009 11:00 [...] 11, 2023 ADVANCE DIRECTIVE JACOB DEL TORO [facility] Encounter Notes: All associated encounter notes [...] ADDENDA Community Pulmonary Provider, [facility]. Dockery at [facility] would like to have patient do pulm rehab at [facility]. Alert to PACT: Please enter [facility]hab consult if in agreement. [facility] [address] [place] [address] /natalie/ JODI SAMANIEGO Community [facility] RN Signed: 01/04/2024 16:33 Receipt Acknowledged By: 01/05/2024 08:26 /natalie/ PRINCESS RAMON D.O. PHYSICIAN 01/05/2024 08:07 /natalie/ MARLEE CLINTON RN REGISTERED NURSE 01/05/2024 ADDENDUM STATUS: COMPLETED consult entered as requested, held for PCP signature /natalie/ MARLEE CLINTON, SHERYL REGISTERED NURSE Signed: 01/05/2024 08:08 [facility]
--- OUTSIDE RECORDS SUMMARY | 2024-06-15 06:56 | XMS_ITS ---
Author Name [facility] Organization [facility] [place] Address [address] [place] [address] Care Team Providers Care Registered Massage Therapist Name Role Phone PRINCESS RAMON Primary Care [...] PART A Jul 15, 2013 PART A [id number] BRAD CUENCA JR PATIENT MEDICARE (WNR) MEDICARE (M) PART B Jul 15, 2013 PART B [id number] BRAD CUENCA JR PATIENT MEDICARE (WNR) MEDICARE (M) PART A Jul 15, 2013 PART A [id number] BRAD CUENCA JR PATIENT MEDICARE (WNR) MEDICARE (M) PART B Jul 15, 2013 PART B [id number] BRAD CUENCA JR PATIENT Selected Encounter This section includes the information on record at [place] for the Encounter. Date/Time Encounter Type Encounter Description Reason Provider Source May 10, 2024 10:30 AM OFFICE O/P EST MOD 30 MIN PRIMARY CARE/MEDICINE ICD-10-CM J43.2 Centrilobular emphysema FURCOLO,PRINCESS IHE Encounter Template Text not used by [facility] Assessments - Encounter Diagnoses This section includes the primary and secondary diagnoses documented for the Encounter. Date/Time Primary/Secondary Diagnosis Diagnosis Name Provider Source May 10, 2024 11:20 AM PRIMARY Centrilobular emphysema FURCOLO,PRINCESS [facility] [place] [facility] May 10, 2024 11:20 AM SECONDARY Benign prostatic hyperplasia without lower urinry tract symp FURCOLO,PRINCESS [facility] [place] [facility] May 10, 2024 11:20 AM SECONDARY Impaired fasting glucose FURCOLO,PRINCESS [facility] [place] [facility] May 10, 2024 11:20 AM SECONDARY Nicotine dependence, unsp, w oth nicotine-induced disorders FURCOLO,PRINCESS [facility] [place] [facility] May 10, 2024 11:20 AM SECONDARY Obesity, unspecified FURCOLO,PRINCESS [facility] [place] [facility] May 10, 2024 11:20 AM SECONDARY Other hemochromatosis FURCOLO,PRINCESS [facility] [place] [facility] May 10, 2024 11:20 AM SECONDARY Other male erectile dysfunction FURCOLO,PRINCESS [facility] [place] [facility] Lab Results: +/- 30 days of [...] Type Result - Unit Interpretation Reference Range Specimen Type Comment May 04, 2024 07:35 AM [place] [facility] [place] [facility] HEMOGLOBIN A1C PANEL BLOOD Specimen Type: BLOOD Comment: Values obtained from A1C measurements can vary. For atypical A1C assays, a reported value of 7.0 could actually be between 6.72 and 7.28 if measured by a reference method. A reported value of 9.0 could actually be between 8.73 and 9.27. Ref: http://www.ngsp .org/CAPdata.as p Ordering Provider: PRINCESS RAMON Report Released Date/Time: May 01, 2024 08:17 AM Reporting Lab: [place] [facility] [place] [facility] [address] [facility] [address] Performing Lab: [place] [facility] [place] [facility] [address] [facility] [address] HEMOGLOBIN A1C 6.0 H 4.0-5.6 May 04, 2024 07:35 AM [facility] FERRITIN SERUM Specimen Type: SERUM No comment entered. Ordering Provider: PRINCESS RAMON Report Released Date/Time: May 01, 2024 08:17 AM Reporting Lab: [facility] [place] [facility] [address] [facility] [address] Performing Lab: [place] [facility] [place] [place] [facility] [address] [facility] [address] FERRITIN 92 ng/mL 20-300 May 04, 2024 07:35 AM [facility] LIVER FUNCTION SERUM Specimen Type: SERUM No comment entered. Ordering Provider: PRINCESS RAMON Report Released Date/Time: May 01, 2024 08:17 AM Reporting Lab: [facility] [address] [facility] [address] Performing Lab: [facility] [place] [facility] [address] [facility] [address] PROTEIN,TOTAL 6.7 g/dL 6.0-8.3 ALBUMIN 4.0 g/dL 3.5-5.0 ALKALINE PHOSPHATASE 81 U/L 40-150 AST 18 U/L 5-34 ALT 32 U/L BILIRUBIN, TOTAL 0.7 mg/dL 0.2-1.2 May 04, 2024 07:35 AM [facility] CBC BLOOD Specimen Type: BLOOD No comment entered. Ordering Provider: PRINCESS RAMON Report Released Date/Time: May 01, 2024 08:17 AM Reporting Lab: [place] [facility] [place] [facility] [address] [facility] [address] Performing Lab: [facility] [address] [facility] [address] WBC 7.46 10*3/uL 4.50-11.00 RBC 4.82 10*6/uL 4.23-5.66 HGB 15.6 g/dL 12.8-17 HCT 45.4 39.2-50.4 MCV 94.2 fL 82-99 MCHC 34.4 g/dL 30.8-35.1 PLT 158 10*3/uL 140-360 RDW-CV 12.4 12.0-16.0 MCH 32.4 pg 26.2-32.6 May 04, 2024 07:35 AM [facility] LIPID PANEL FASTING SERUM Specimen Type: SERU M No comment entered. Ordering Provider: PRINCESS RAMON Report Released Date/Time: May 01, 2024 08:17 AM Reporting Lab: [facility] [address] [facility] [address] Performing Lab: [address] [address] CHOLESTEROL 162 mg/dL TRIGLYCERIDE 119 mg/dL 0-150 LDL calculated 97 mg/dL 0-129 CHOL/HDL 4.0 HDL CHOLESTEROL 41 mg/dL 40-60 May 04, 2024 07:35 AM [facility] BASIC METABOLIC PANEL (fasting) SERUM Specime n Type: SERUM No comment entered. Ordering Provider: PRINCESS RAMON Report Released Date/Time: May 01, 2024 08:17 AM Reporting Lab: [facility] [address] [facility] [address] Performing Lab: [facility] [address] [facility] [address] UREA NITROGEN 18 mg/dL 7-25 GLUCOSE 123 mg/dL H 65-100 SODIUM 139 mmol/L 135-145 POTASSIUM 4.2 mmol/L 3.5-5.0 CHLORIDE 106 mmol/L 100-110 CO2 26 meq/L 20-30 CALCIUM 8.8 mg/dL 8.5-10.2 CREATININE, Serum 0.87 mg/dL 0.50-1.40 eGFR(CKD-EPI 2020) 89 mL/min >60 Vital Signs: All taken on the encounter date This section contains inpatient and outpatient Vital Signs collected on the date of the Encounter. Date/Time Temperature Pulse Blood Pressure Respiratory Rate SP02 Pain Height Weight Body Mass Index Source May 10, 2024 10:36 AM 98.3 81 133/79 16 91 1 261 36 [place] [facility] [place] [facility] Social History: Smoking Status (Most current) [...] took place. Date/Time Current Smoking Status Comment [facility] May 10, 2024 10:30 AM VA-TOBACCO NEVER U SED OTHER TYPE [place] [facility] Tobacco Use History This section includes a history of the smoking, or tobacco-related health factors, that were collected on or before the date of the Encounter. The data comes from the [place] facility where the Encounter took place. Date/Time Smoking Status/Tobac co Use Comment Facility May 10, 2024 10:30 AM VA-TOBACCO SCREEN FOLLOW-UP [place] [facility] [place] [facility] May 10, 2024 10:30 AM VA-TOBACCO USE ADVICE [place] [facility] [place] [facility] May 10, 2024 10:30 AM VA-TOBACCO USE JUNIOR COPYWRITER NO [facility] [place] [facility] May 10, 2024 10:30 AM VA-TOBACCO USE MED NO [facility] [place] [facility] May 10, 2024 10:30 AM VA-TOBACCO USE SOME DAYS CIGARETTES [place] [facility] [place] [facility] Jan 12, 2023 09:00 AM VA-TOBACCO DOESNT USE WI 30 MIN WAKEUP [place] [facility] [place] [facility] Jan 12, 2023 09:00 AM VA-TOBACCO USE 30 YEARS OR MORE [facility] [place] [facility] Jan 12, 2023 09:00 AM VA-TOBACCO USE ADVICE [facility] [place] [facility] Jan 12, 2023 09:00 AM VA-TOBACCO USE JUNIOR COPYWRITER NO [facility] [place] [facility] Jan 12, 2023 09:00 AM VA-TOBACCO USE MED NO [facility] [place] [facility] Jan 12, 2023 09:00 AM VA-TOBACCO USER EVERY DAY [facility] [place] [facility] Oct 23, 2021 08:00 AM VA-TOBACCO DOESNT USE WI 30 MIN WAKEUP [facility] [place] [facility] Oct 23, 2021 08:00 AM VA-TOBACCO USE 30 YEARS OR MORE [facility] [place] [facility] Oct 23, 2021 08:00 AM VA-TOBACCO USE ADVICE [facility] [place] [facility] Oct 23, 2021 08:00 AM VA-TOBACCO USE JUNIOR COPYWRITER NO [facility] [place] [facility] Oct 23, 2021 08:00 AM VA-TOBACCO USE MED NO [facility] [place] [facility] Oct 23, 2021 08:00 AM VA-TOBACCO USER EVERY DAY [place] [facility] [place] [facility] Oct 29, 2020 10:00 AM VA-TOBACCO DOESNT USE WI 30 MIN WAKEUP [place] [facility] [place] [facility] Oct 29, 2020 10:00 AM VA-TOBACCO USE 30 YEARS OR MORE [place] [facility] [place] [facility] Oct 29, 2020 10:00 AM VA-TOBACCO USE ADVICE [place] [facility] [place] [facility] Oct 29, 2020 10:00 AM VA-TOBACCO USE JUNIOR COPYWRITER YES [place] [facility] [place] [facility] Oct 29, 2020 10:00 AM VA-TOBACCO USE MED NOTIFY PROVIDER [place] [facility] [place] [facility] Oct 29, 2020 10:00 AM VA-TOBACCO USER EVERY DAY [place] [facility] [place] [facility] Oct 10, 2019 11:00 AM VA-TOBACCO FORMER USER [facility] [place] [facility] Oct 10, 2019 11:00 AM VA-TOBACCO QUIT < 1 YEAR [facility] [place] [facility] Oct 26, 2018 07:55 AM VA-TOBACCO USE > 15 LESS THAN 30 YEARS [facility] [place] [facility] Oct 26, 2018 07:55 AM VA-TOBACCO USE ADVICE [facility] [place] [facility] Oct 26, 2018 07:55 AM VA-TOBACCO USE JUNIOR COPYWRITER NO [facility] [place] [facility] Oct 26, 2018 07:55 AM VA-TOBACCO USE MED NO [place] [facility] [place] [facility] Oct 26, 2018 07:55 AM VA-TOBACCO USE WI 30 MIN OF WAKEUP [place] [facility] Oct 26, 2018 07:55 AM VA-TOBACCO USER EVERY DAY [facility] [place] [facility] Aug 04, 2017 08:53 AM CURRENT SMOKER [facility] [place] [facility] Aug 04, 2017 08:53 AM V1-PT DECLINES REF TO TOBACCO CESS PRGM [facility] [place] [facility] Aug 04, 2017 08:53 AM V1-PT DECLINES TOBACCO CESSATION MEDS [facility] [place] [facility] Aug 04, 2017 08:53 AM V1-PT THINKING ABOUT QUIT TOBACCO USE [facility] [place] [facility] Jan 31, 2017 09:51 AM QUIT TOBACCO USE IN PAST YEAR 31 days [facility] [place] [facility] Jan 26, 2016 08:36 AM CURRENT SMOKER [place] [facility] [facility] Jan 26, 2016 08:36 AM V1-PT DECLINES REF TO TOBACCO CESS PRGM [facility] [place] [facility] Jan 26, 2016 08:36 AM V1-PT DECLINES TOBACCO CESSATION MEDS [facility] [place] [facility] Jan 26, 2016 08:36 AM V1-PT THINKING ABOUT QUIT TOBACCO [facility] Feb 20, 2015 10:25 AM QUIT TOBACCO USE IN PAST YEAR [facility] [place] [facility] June 17, 2014 07:37 AM CURRENT SMOKER Reports being an off and on smoker -cigarettes [facility] [place] [facility] June 17, 2014 07:37 AM V1-PT DECLINES REF TO TOBACCO CESS PRGM [facility] [place] [facility] June 17, 2014 07:37 AM V1-PT DECLINES TOBACCO CESSATION MEDS [facility] [place] [facility] June 17, 2014 07:37 AM V1-PT THINKING ABOUT QUIT TOBACCO USE [facility] [place] [facility] Sep 14, 2011 09:51 AM CURRENT SMOKER less than a pack a day [facility] [place] [facility] Sep 14, 2011 09:51 AM V1-PT DECLINES REF TO TOBACCO CESS PRGM [facility] Sep 14, 2011 09:51 AM V1-PT DECLINES TOBACCO CESSATION MEDS [facility] Sep 14, 2011 09:51 AM V1-PT THINKING ABOUT QUIT TOBACCO USE [facility] Mar 09, 2010 09:32 AM CURRENT SMOKER 1 ppd [facility] Mar 09, 2010 09:32 AM V1-PT DECLINES TOBACCO CESSATION MEDS [facility] Mar 09, 2010 09:32 AM V1-PT REF TO NON-VA TOBACCO CESS PRGM [facility] TR[facility] Mar 09, 2010 09:32 AM V1-PT THINKING ABOUT QUIT TOBACCO USE [facility] Sep 29, 2009 02:07 PM V1-PT DECLINES REF TO TOBACCO CESS PRGM [facility] Sep 29, 2009 02:07 PM V1-PT DECLINES TOBACCO CESSATION MEDS [facility] Sep 29, 2009 02:07 PM V1-PT NOT INTERESTED IN QUIT TOBACCO USE [facility] Jan 29, 2009 11:00 AM CURRENT SMOKER 1 ppd [facility] Jan 29, 2009 11:00 AM V1-PT DECLINES TOBACCO CESSATION MEDS [facility] Jan 29, 2009 11:00 AM V1-PT READY TO QUIT TOBACCO USE [facility] Mar 17, 2005 08:36 AM CURRENT SMOKER [facility] Advance Directives: All historical and current [...] 11, 2023 ADVANCE DIRECTIVE [facility] Radiology Reports: +/- 30 days of [...] facilities. Date/Time Radiology Report Provider Source May 10, 2024 09:23 AM LDCT LUNG CANCER SCREENING: BRAD CUENCA [id number] -[id number] M Exm Date: MAY 10, 2024@09:23 Req Phys: VIRA CRUZ Loc: [facility] LCS CHART CONSULT (Req'g L Img Loc: [facility]/CT Service: Unknown [facility] [address] (Case [id number] COMPLETE) LDCT LUNG CANCER SCREENING (CT Detailed) CPT:98272 Reason for Study: LUNG CANCER SCREENING Clinical History: 58 TPY-smoking intermittently Prior imaging: CT scan of the chest from January 12, 2023, December 24, 2021, December 22, 2020, November 01, 2019 and February 20, 2015 and June 26, 2014. LCS LDCT done on 05/12/2023: LR 2 RLL index nodule previoously 6.7mm now measures 4.9mm in greatest dimesion image [id number] Report Status: Verified Date Reported: MAY 10, 2024 Date Verified: MAY 10, 2024 Sand Technician E-Sig:/ES/SHYAM BROWN JR Report: Study: Lung cancer screening CT of the chest. Provided History: Lung cancer screening. Comparison: CT scan of the chest from May 12, 2023, January 12, 2023, December 24, 2021, December 22, 2020, November 01, 2019, February 20, 2015 and June 26, 2014. Technique: 1 mm lung algorithm and 3 mm soft tissue algorithm axial reconstructions from the lung apices through the lung bases without the administration of intravenous contrast as per standard department protocol for lung cancer screening. Subsequently, sagittal and coronal reformats were generated. MIP images also provided and reviewed. Secondary computer-aided detection with post-processing from [facility] is used. The lack of intravenous contrast inherently limits the evaluation of hilar structures, vascular structures, and abnormal enhancement patterns. Lower than standard dose was utilized limiting sensitivity for fine parenchymal detail. Dose Parameters: CTDI(vol): 3.4 mGy. DLP: 126.9 mGy*cm. Findings: Lungs: Emphysema: Moderate centrilobular and paraseptal emphysematous changes with associated scattered parenchymal scarring is unchanged. Index Nodule: Stable 5.1 mm solid, round, well-circumscribed, juxtapleural right lower lobe pulmonary nodule, 8-310. Other Nodules: None. Lungs/airway findings: No acute [...] lateral rib fracture. Other findings: None. Impression: No significant interval change or new abnormality, as described above. Lung-RADS Assessment: Category 2, benign appearance or behavior. Recommendation: Continue annual screening with lung cancer screening CT in 12 months. Other Significant Findings and Recommendations: None. Primary Diagnostic Code: No immediate attention required Secondary Diagnostic Codes: LUNGRADS 2: BENIGN APPEARANCE OR BEHAVIOR Primary Interpreting Staff: SHYAM BROWN JR, Radiologist (Sand Technician) /SHYAM DAVILA JR [facility] Encounter Notes: All associated encounter notes This section contains the clinical notes associated to the Encounter. Date/Time Encounter Note(s) Provider Source May 10, 2024 10:45 AM PHYSICIAN NOTE: LOCAL TITLE: MD NOTE STANDARD TITLE: PHYSICIAN NOTE DATE OF NOTE: MAY 10, 2024@10:45 ENTRY DATE: MAY 10, 2024@10:45:32 AUTHOR: PRINCESS RAMON COSIGNER: URGENCY: STATUS: COMPLETED BRAD CUENCA is a 73 year old WHITE MALE who is being seen today in primary care for routine follow up. CARE TEAM Community Primary Care Provider: Dr. Jasper Asencio, [facility]- phone [phone], FAX [phone] [facility] Specialists: optometry Community Specialists: phlebotomy- [facility] For hemachromatosis- monthly blood draws, 500 cc, hold if Hb 12 or lower changed to q 2 mo blood draws, 450 cc, hold for Hb<12 pulmonology- Dr. Dockery, [facility] HISTORY PERIOD OF SERVICE - [place] [facility] CONNECTED % - NONE FOUND [employer], [place], [id number], [place] HISTORY OF PRESENT ILLNESS is 10 days without smoking finger hurts- left hand- middle finger DIP and PIP back hurts- chronic did his LDCT scan this am plan for TURP with [facility]- had one episode of incontinence, continues with nocturia as well- more difficulty getting back to sleep RELEVANT PAST MEDICAL HISTORY Active problems - Computerized Problem List is the source for the followin. Centriacinar emphysema sees [facility] 2. Impaired fasting glucose 3. Benign prostatic hyperplasia sees [facility]- plan for TURP 4. Obesity 5. Open Angle Glaucoma Suspect 6. Erectile dysfunction (SNOMED CT 724783460) 7. Nicotine dependence (SNOMED CT 45816629) 8. Hemochromatosis (SNOMED CT 170159139) keep HCT <16, ferritin <200. [place] [facility] changed to every other month, 450cc PAST SURGICAL HISTORY appendectomy tonsillectomy FAMILY HISTORY Mother: at age 81, sepsis after hernia operation - knicked her bowel Father: at 76, ? cancer of GI tract Siblings: 4 brother- of drugs, cocaine no known thyroid or pancreatic cancers SOCIAL HISTORY Background: born and raised in [place], [place]. 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 Exercise: prev ballroom dancing, more sedentary now, limited by back pain ALLERGIES CHANTIX MEDICATIONS VA and Non VA meds were reconciled with the patient who left with a corrected copy. Active and Recently Outpatient Medications (excluding Supplies): Active Outpatient Medications Status ========= 1) ALBUTEROL 90MCG (CFC-F) 200D ORAL INHL [...] - - - - - - - central obesity RRR S1 s2 decreased breath sounds throughout, no wheezing left finder- some swelling at PIP/DIP RECENT LABS LAB CHEMISTRY & HEMATOLOGY Collection DT Specimen Test Name Result Units Ref Range 05/04/2024 07:35 SERUM FERRITIN 92 ng/mL 20 - 300 05/04/2024 07:35 SERUM CALCIUM 8.8 mg/dL 8.5 - 10.2 CREATININE, Serum 0.87 mg/dL 0.50 - 1.40 eGFR(CKD-EPI 2020 89 mL/min Ref: >=60 SODIUM 139 mmol/L 135 - 145 POTASSIUM 4.2 mmol/L 3.5 - 5.0 CHLORIDE 106 mmol/L 100 - 110 CO2 26 mEq/L 20 - 30 UREA NITROGEN 18 mg/dL 7 - 25 GLUCOSE 123 H mg/dL 65 - 100 PROTEIN,TOTAL 6.7 g/dL 6.0 - 8.3 ALBUMIN 4.0 g/dL 3.5 - 5.0 ALK JULIEAT 81 U/L 40 - 150 AST 18 U/L 5 - 34 BILIRUBIN, TOTAL 0.7 mg/dL 0.2 - 1.2 CHOLESTEROL 162 mg/dL <7 - 199 TRIGLYCERIDE 119 mg/dL 0 - 150 LDL calculated 97 mg/dL 0 - 129 CHOL/HDL 4.0 ALT 32 U/L <6 - 55 HDL CHOLESTEROL 41 mg/dL 40 - 60 05/04/2024 07:35 BLOOD !! HEMOGLOBIN A1C 6.0 H % 4.0 - 5.6 05/04/2024 07:35 BLOOD WBC 7.46 10*3/uL 4.50 - 11.00 RBC 4.82 10*6/uL 4.23 - 5.66 HGB 15.6 g/dL 12.8 - 17 HCT 45.4 % 39.2 - 50.4 MCV 94.2 fl 82 - 99 MCH 32.4 pg 26.2 - 32.6 MCHC 34.4 g/dL 30.8 - 35.1 RDW-CV 12.4 % 12.0 - 16.0 PLT 158 10*3/uL 140 - 360 IMAGING IMPRESSION Date Procedure CPT Status Case # 05/10/2024 LDCT LUNG CANCER SCREENING [id number] Verified 375 No significant interval change or new abnormality, as described above. Lung-RADS Assessment: Category 2, benign appearance or behavior. Recommendation: Continue annual screening with lung cancer screening CT in 12 months. Other Significant Findings and Recommendations: None. ASSESSMENT AND PLAN 1. Morbid obesity- doing intermittent fasting. just quit smoking 10 days ago. 2. Hemachromatosis- having phlebotomy every OTHER month, goal is to keep Hb<16 and ferritin <200. gets 450 cc remved every other month at [facility] 3. BPH- now seeing [facility]- TURP planned. having occasional incontinence. difficulty getting back to sleep when nocturia 4. OA finger- left middle finger DIP/PIP- ok to use tylenol prn 5. lower back pain- chronic in nature- weigth loss will help 6. tobacco user- quit 10 days ago. for the past 2 years only buys 1 cig at a time from [employer]. has smoked all his life. has had CT scans of lungs from 6168-8133- no chnage. sees [facility]. i don;t think he needs any more CT scans 7. COPD- on wixela and spiriva. renewed today HEALTH MAINTENANCE Colonoscopy - shows diverticulosis/adenomatous polyp/internal hemorrhoids August 2016 and recommended to repeat in 10 years - due 2026 Lung Ca screening- negative from [id number], no need to continue LDCTs Abdominal Aortic Aneurysm Screening - negative- had CT abd 2021 Prostate screening - negative PSA- sees urology Tetanus: due every 10 years Pneumonia Vacccine: Flu Vaccine: due yearly Covid Vaccine: due yearly FOLLOW UP f/u in 6 mo with labs VISIT TYPE: a MODERATE complexity visit where 30 minutes was spent in direct patient care, review of records and documentation. Tobacco Use Follow-Up: Patient was advised to stop smoking and/or using other tobacco products. Advised patient that a combination of behavioral counseling and FDA-approved cessation medications is the most effective way to ensure their success in stopping to smoke and/or using other tobacco products. The patient was not interested in additional information about behavioral counseling and other support strategies discussed. Informed patient that medications can help with cravings and withdrawal symptoms, and they greatly increase the chances of successfully stopping your tobacco use. The patient was not interested in a prescription for tobacco cessation medications. /natalie/ PRINCESS RAMON D.O. PHYSICIAN Signed: 05/10/2024 11:20 PRINCESS RAMON [facility] [place] [facility] May 10, 2024 10:32 AM PREVENTIVE MEDICINE NURSING NOTE: LOCAL TITLE: CLINICAL REMINDERS/NURSING STANDARD TITLE: PREVENTIVE MEDICINE NURSING NOTE DATE OF NOTE: MAY 10, 2024@10:32 ENTRY DATE: MAY 10, 2024@10:32:17 AUTHOR: TRU CALVERT EXP COSIGNER: URGENCY: STATUS: COMPLETED Depression Screening: Perform PHQ-2 A PHQ-2 screen was performed. The score was 0 which is a negative screen for depression. Over the past two weeks, how often have you been bothered by the following problems? 1. Little interest or pleasure in doing things Not at all 2. Feeling down, depressed, or hopeless Not at all Tobacco Use Screening: The patient smokes cigarettes some days. The patient has never used other types of tobacco. is curretnly on day 10 of not smoking. previously smoked on and off for about 2 years and prior was a pack a day for >50 years. Influenza Immunization: Deferral / Refusal COVID-19 Immunization: Refused Moderna Monovalent COVID-19 vaccine Immunization: COVID-19 (MODERNA), MRNA, LNP-S, PF, 50 MCG/0.5 ML (AGES 12+ YEARS) Refusal Reason: PATIENT DECISION Patient refuses all immunization(s) in the COVID-19 group Date Documented: 05/10/24 10:34 RSV Immunization: Respiratory Syncytial Virus (RSV) Vaccine: Refused Yapta (Abrysvo, RSVpreF vaccine). Immunization: RSV, BIVALENT, PROTEIN SUBUNIT RSVPREF, DILUENT RECONSTITUTED, 0.5 ML, PF Refusal Reason: PATIENT DECISION Patient refuses all immunization(s) in the RSV group Date Documented: 05/10/24 10:35 Sexual Orientation: The patient thinks of their sexual orientation as: Straight or Heterosexual /avani CALVERT LPN License Practical Nurse Signed: 05/10/2024 10:35 TRU CALVERT [place] [facility] [place] [facility] May 03, 2024 01:14 PM NURSING NOTE: LOCAL TITLE: NURSING NOTE STANDARD TITLE: NURSING NOTE DATE OF NOTE: MAY 03, 2024@13:14 ENTRY DATE: MAY 03, 2024@13:14:10 AUTHOR: TRU CALVERT EXP COSIGNER: URGENCY: STATUS: COMPLETED called, reminded of upcoming apt scheduled on may 10 at 10:30AM, with fasting blood work ordered. /avani CALVERT LPN License Practical Nurse Signed: 05/03/2024 13:15 NEHALTRU [place] [facility] [place] [facility] Apr 27, 2024 09:27 AM ADMINISTRATIVE NOTE: LOCAL TITLE: FAX/MAIL RECEIVED STANDARD TITLE: ADMINISTRATIVE NOTE DATE OF NOTE: APR 27, 2024@09:27 ENTRY DATE: APR 27, 2024@09:27:37 AUTHOR: TRU CALVERT EXP COSIGNER: URGENCY: STATUS: COMPLETED Document Received On: Apr Document Type: Other: cystoscopy/US Date of Service: Mar Facility and or Provider: [facility] Contact Information: PCP of Record: PRINCESS RAMON Next visit with PCP: 05/10/2024 09:30 [facility] CAT SCAN 05/10/2024 10:30 [facility] PACT EIGHT 11/22/2024 10:30 [facility] DERMATOLOGY MACHINE ENGINEER 1 AM 04/02/2025 09:00 [facility] OPTOMETRY 2 AM Primary Care May keep copies of this document for up to 14 days and send the original for scanning. HPI: brad is a pleasant caucasioan male, he is a patient of Dr. Cruz. he seen for the followg urologi consitions lower urnary tract symptoms here for office cystoscop large prostate nitced large PVR noted on bladder ultrasound june castañeda recommend prostate green light laser Office Procedures Cystoscopy Consent Discussed risk and benefit or proposed procedure with the patient. Information consent for procedure given to the patient, Discussed technical aspects, risks, benefits and alternatives in full, Addressed all of the patient's questions and concerns regarding the procedure, The patient demonstrated knowledge and understanding, They wish to proceed with this procedure. procedure Cystoscopy performed using a disposable Urovue digital 16 Qatari cystoscope. meatus circumcised urethra anterior and posterior urethra prostatic urethra trilobar hyperplasia Bladder examination with retroflexion of cystoscope Bladder Orifices normal shape and position Bladder Capacity median trabeculations grade 1/2 cellule formation yes Diverticulum Formation Mucosal Erythema Bladder Tumor [id number] DISPOSABLE SCOPE URO-G FLEXIBLE SCOPE Procedure code (CPT) selection complete Assessment & Plan (1) BPH (benign prostatic hyperplasia): N40,0 - Benign prostatic hyperplasia without lower urinary tract symptoms Medical (2) Incomplete emptying of bladder due to benign prostatic hyperplasia: N40,l - Benign prostatic hyperplasia with lower urinary tract symptoms; R33,9 - Retention of urine, unspecified We discussed the nature of the decision and reasonable options for performing a prostate intervention. Interventions include TURP, Green Light laser enucleation of the prostate, Green Light laser ablation of the prostate, transurethral incision of the prostate, and I-Tend prostate procedure. Options such as medical therapy were discussed, The relative uncertainties and benefits related to each alternate procedure were adequately discussed, General surgical risks including, but not limited to, pain, bleeding, infection, myocardial infarction, pulmonary embolus, deep vein thrombosis and cerebrovascular accident which may result in further hospitalization were discussed. Full disclosure of the procedure as well as all major risks, benefits and complications were discussed including but not limited to damage to the urethra or bladder neck, recurrent BPH, retrograde ejaculation, bladder infection, urge, de nova frequency, incomplete emptying, dysuria, remote chance of erectile dysfunction, epididymitis, and meatal stenosis, The success rate of the procedure was discussed, Success of the procedure in the short-term does not necessarily guarantee that long-term success will be maintained, Suitable follow up will need to be maintained, The patient showed understanding of discussion, An opportunity was provided for questions to be answered and wishes to proceed with L-3 [facility] Information Management [id number] the following procedure, - Green Light laser prostatectomy /avani CALVERT LPN License Practical Nurse Signed: 04/27/2024 10:19 TRU CALVERT [place] [facility] [place] [facility] Apr 20, 2024 01:27 PM ADDENDUM: LOCAL TITLE: Addendum STANDARD TITLE: ADDENDUM DATE OF NOTE: APR 20, 2024@13:27:01 ENTRY DATE: APR 20, 2024@13:27:03 AUTHOR: TRU CALVERT EXP COSIGNER: URGENCY: STATUS: COMPLETED correction [facility] pulmonary rehab consult is asctive. [facility] pulmonary consult placed, held for signature. /avani CALVERT LPN License Practical Nurse Signed: 04/20/2024 13:28 Receipt Acknowledged By: 04/23/2024 10:34 /es/ RANDI HANSON [employer] CLEANER --- Original Document --- 04/20/24 FAX/MAIL RECEIVED: Document Received On: Apr Document Type: Other: referral/consult request Date of Service: Apr Facility and or Provider: Contact Information: PCP of Record: PRINCESS RAMON Next visit with PCP: 05/10/2024 09:30 [facility] CAT SCAN 05/10/2024 10:30 [facility] PACT TERESA CARRIZALES 11/22/2024 10:30 [facility] DERMATOLOGY MACHINE ENGINEER 1 AM 04/02/2025 09:00 [facility] OPTOMETRY 2 AM Primary Care May keep copies of this document for up to 14 days and send the original for scanning. Received referral request, with upcoming appointment on 05/08/24 at [facility] pulmonology. Community care pulmonary consult does not till 08/25/24. Please refax the consult. /natalie/ TRU CALVERT LPN License Practical Nurse Signed: 04/20/2024 13:19 TRU CALVERT [place] [facility] [place] [facility] Apr 20, 2024 01:17 PM ADMINISTRATIVE NOTE: LOCAL TITLE: FAX/MAIL RECEIVED STANDARD TITLE: ADMINISTRATIVE NOTE DATE OF NOTE: APR 20, 2024@13:17 ENTRY DATE: APR 20, 2024@13:17:07 AUTHOR: TRU CALVERT EXP COSIGNER: URGENCY: STATUS: COMPLETED FAX/MAIL RECEIVED Has ADDENDA Document Received On: Apr Document Type: Other: referral/consult request Date of Service: Apr Facility and or Provider: Contact Information: PCP of Record: PRINCESS RAMON Next visit with PCP: 05/10/2024 09:30 [facility] CAT SCAN 05/10/2024 10:30 [facility] PACT TERESA CARRIZALES 11/22/2024 10:30 [facility] DERMATOLOGY MACHINE ENGINEER 1 AM 04/02/2025 09:00 [facility] OPTOMETRY 2 AM Primary Care May keep copies of this document for up to 14 days and send the original for scanning. Received referral request, with upcoming appointment on 05/08/24 at [facility] pulmonology. Community care pulmonary consult does not till 08/25/24. Please refax the consult. /natalie/ TRU CALVERT LPN License Practical Nurse Signed: 04/20/2024 13:19 04/20/2024 ADDENDUM STATUS: COMPLETED correction [facility] pulmonary rehab consult is asctive. new community care pulmonary consult placed, held for signature. /natalie/ TRU CALVERT LPN License Practical Nurse Signed: 04/20/2024 13:28 Receipt Acknowledged By: * AWAITING SIGNATURE * RANDI HANSON AGN[place] [facility] [place] [facility] Apr 13, 2024 01:13 PM ADMINISTRATIVE NOTE: LOCAL TITLE: FAX/MAIL RECEIVED STANDARD TITLE: ADMINISTRATIVE NOTE DATE OF NOTE: APR 13, 2024@13:13 ENTRY DATE: APR 13, 2024@13:13:25 AUTHOR: TRU CALVERT EXP COSIGNER: URGENCY: STATUS: COMPLETED Document Received On: Mar Document Type: Other: US urinary bladder Date of Service: Mar Facility and or Provider: Contact Information: PCP of Record: PRINCESS RAMON Next visit with PCP: 05/10/2024 09:30 C[facility]/NO/CAT SCAN 05/10/2024 10:30 [facility] PACT EIGHT 11/22/2024 10:30 [facility] DERMATOLOGY MACHINE ENGINEER 1 AM 04/02/2025 09:00 [facility] OPTOMETRY 2 AM Primary Care May keep copies of this document for up to 14 days and send the original for scanning. ordering physician: Roe Chilel MD CLINICAL HISTORY-poor urinary stream US URINARY BLADDER findings the urinary bladder in unremarkable prvoid volume : 315 ML post void volume: 269 ml Ureteral jets are visualized bilaterally Prostate measures 4.8x3.7x5.0cm equal to a volume of 47ml Impression 1 smooth urinary bladder outline 2 large post void residural of roughly 85 percent 3 prostatomegaly /natalie/ TRU CALVERT LPN License Practical Nurse Signed: 04/13/2024 13:17 TRU CALVERT [facility] [place] [facility] Apr 13, 2024 01:09 PM ADMINISTRATIVE NOTE: LOCAL TITLE: FAX/MAIL RECEIVED STANDARD TITLE: ADMINISTRATIVE NOTE DATE OF NOTE: APR 13, 2024@13:09 ENTRY DATE: APR 13, 2024@13:09:11 AUTHOR: TRU CALVERT EXP COSIGNER: URGENCY: STATUS: COMPLETED Document Received On: Mar Document Type: Office Visit Note Date of Service: Feb Facility and or Provider: [facility] Contact Information: PCP of Record: PRINCESS RAMON Next visit with PCP: 05/10/2024 09:30 CWM/NO/CAT SCAN 05/10/2024 10:30 [facility] PACT EIGHT MD 11/22/2024 10:30 [facility] DERMATOLOGY MACHINE ENGINEER 1 AM 04/02/2025 09:00 [facility] OPTOMETRY 2 AM Primary Care May keep copies of this document for up to 14 days and send the original for scanning. INtake: BPH/elevated PSA/Turp consult HPI jesika López is a pleasant male. he is a patient of dr. Cruz. he seen for the following urologic condtions Lower urinary tract symptoms Assessment & Plan Assessment & Plan (1) BPH (benign prostatic hyperplasia): N40,0 - Benign prostatic hyperplasia without lower urinary tract symptoms Plan Plan bladder ultrasound Office cystoscopy /es/ TRU CALVERT LPN License Practical Nurse Signed: 04/13/2024 13:13 TRU CALVERT [facility]
--- OUTSIDE RECORDS SUMMARY | 2024-06-15 06:56 | XMS_ITS ---
Author Name [facility] [place] [facility] [facility] [place] Address [address] [place] [address] Care Team Providers Care Diamond Setter Apprentice Name Role Phone PRINCESS RMAON Primary Care Provider Unavailabl e Insurance Providers: [...] PART A Jul 15, 2013 PART A [id number] BRAD CUENCA JR PATIENT MEDICARE (WNR) MEDICARE (M) PART B Jul 15, 2013 PART B [id number] BRAD CUENCA JR PATIENT MEDICARE (WNR) MEDICARE (M) PART A Jul 15, 2013 PART A [id number] BRAD CUENCA JR PATIENT MEDICARE (WNR) MEDICARE (M) PART B Jul 15, 2013 PART B [id number] BRAD CUENCA JR PATIENT Selected Encounter This section includes the information on record at [place] for the Encounter. 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 Date/Time Primary/Secondary Diagnosis Diagnosis Name Provider Source Mar 21, 2024 07:09 AM PRIMARY Rhinophyma PROMISE CAMARA [place] [facility] [place] [facility] Mar 21, 2024 07:09 AM SECONDARY Benign neoplasm of left choroid PROIMSE CAMARA [facility] [place] [facility] Mar 21, 2024 07:09 AM SECONDARY Combined forms of age-related cataract, bilateral PROMISE CAMARA [facility] [place] [facility] Mar 21, 2024 07:09 AM SECONDARY Dry eye syndrome of bilateral lacrimal glands PROMISE CAMARA [place] [facility] [place] [facility] Mar 21, 2024 07:09 AM SECONDARY Meibomian gland dysfnct left eye, upper and lower eyelids PROMISE CAMARA [facility] [place] [facility] Mar 21, 2024 07:09 AM SECONDARY Meibomian gland dysfnct right eye, upper and lower eyelids PROMISE CAMARA [facility] [place] [facility] Mar 21, 2024 07:09 AM SECONDARY Open angle with borderline findings, low risk, bilateral PROMISE CAMARA [facility] [place] [facility] Mar 21, 2024 07:09 AM SECONDARY Other rosacea PROMISE CAMARA [place] [facility] [place] [facility] Plan of Treatment: Future Appointments (+ 6 months) and Future Tests (+/- 45 days) The Plan of Treatment section includes future care activities for the patient from all [place] treatmentfacilities. This section includes future appointments and future orders which are active, pending or scheduled. Future Appointments This section includes appointments that were scheduled to occur 6 months from the date of the Encounter, up to a maximum of 20 appointments. The data comes from all [place] treatment facilities. Appointment Date/Time Appointment Type Appointme nt Facility Name May 08, 2024 01:45 PM AMBULATORY - MEDICINE [facility] [place] [facility] May 10, 2024 09:30 AM AMBULATORY - NONE [facility] [place] [facility] May 10, 2024 10:30 AM AMBULATORY - MEDICINE [place] [facility] [place] [facility] Social History: Smoking Status (Most [...] took place. Date/Time Current Smoking Status Comment [facility] it Jan 12, 2023 09:00 AM VA-TOBACCO DOESNT USE WI 30 MIN WA[place]UP [place] [facility] Tobacco Use History This section includes a history of the smoking, or tobacco-related health factors, that were collected on or before the date of the Encounter. The data comes from the [place] facility where the Encounter took place. Date/Time Smoking Status/[facility] 09:00 AM VA-TOBACCO USE 30 YEARS OR MORE [facility] [place] [facility] Jan 12, 2023 09:00 AM VA-TOBACCO USE ADVICE [facility] [place] [facility] Jan 12, 2023 09:00 AM VA-TOBACCO USE SYSTEMS TESTING LABORATORY TECHNICIAN NO [facility] [place] [facility] Jan 12, 2023 09:00 AM VA-TOBACCO USE MED NO [facility] [place] [facility] Jan 12, 2023 09:00 AM VA-TOBACCO USER EVERY DAY [facility] [place] [facility] Oct 23, 2021 08:00 AM VA-TOBACCO DOESNT USE WI 30 MIN WAKEUP [facility] [place] [facility] Oct 23, 2021 08:00 AM VA-TOBACCO USE 30 YEARS OR MORE [facility] [place] [facility] Oct 23, 2021 08:00 AM VA-TOBACCO USE ADVICE [facility] [place] [facility] Oct 23, 2021 08:00 AM VA-TOBACCO USE SYSTEMS TESTING LABORATORY TECHNICIAN NO [facility] [place] [facility] Oct 23, 2021 08:00 AM VA-TOBACCO USE MED NO [facility] [place] [facility] Oct 23, 2021 08:00 AM VA-TOBACCO USER EVERY DAY [facility] [place] [facility] Oct 29, 2020 10:00 AM VA-TOBACCO DOESNT USE WI 30 MIN WAKEUP [place] [facility] [place] [facility] Oct 29, 2020 10:00 AM VA-TOBACCO USE 30 YEARS OR MORE [place] [facility] [place] [facility] Oct 29, 2020 10:00 AM VA-TOBACCO USE ADVICE [facility] [place] [facility] Oct 29, 2020 10:00 AM VA-TOBACCO USE SYSTEMS TESTING LABORATORY TECHNICIAN YES [place] [facility] [place] [facility] Oct 29, 2020 10:00 AM VA-TOBACCO USE MED NOTIFY PROVIDER [place] [facility] [place] [facility] Oct 29, 2020 10:00 AM VA-TOBACCO USER EVERY DAY [place] [facility] [place] [facility] Oct 10, 2019 11:00 AM VA-TOBACCO FORMER USER [place] [facility] [place] [facility] Oct 10, 2019 11:00 AM VA-TOBACCO QUIT < 1 YEAR [place] [facility] [place] [facility] Oct 26, 2018 07:55 AM VA-TOBACCO USE > 15 LESS THAN 30 YEARS [place] [facility] [place] [facility] Oct 26, 2018 07:55 AM VA-TOBACCO USE ADVICE [place] [facility] [place] [facility] Oct 26, 2018 07:55 AM VA-TOBACCO USE SYSTEMS TESTING LABORATORY TECHNICIAN NO [place] [facility] [place] [facility] Oct 26, 2018 07:55 AM VA-TOBACCO USE MED NO [place] [facility] [place] [facility] Oct 26, 2018 07:55 AM VA-TOBACCO USE WI 30 MIN OF WAKEUP [place] [facility] [place] [facility] Oct 26, 2018 07:55 AM VA-TOBACCO USER EVERY DAY [place] [facility] [place] [facility] Aug 04, 2017 08:53 AM CURRENT SMOKER [place] [facility] [place] [facility] Aug 04, 2017 08:53 AM V1-PT DECLINES REF TO TOBACCO CESS PRGM [place] [facility] [place] [facility] Aug 04, 2017 08:53 AM V1-PT DECLINES TOBACCO CESSATION MEDS [facility] [place] [facility] Aug 04, 2017 08:53 AM V1-PT THINKING ABOUT QUIT TOBACCO USE [facility] [place] [facility] Jan 31, 2017 09:51 AM QUIT TOBACCO USE IN PAST YEAR 31 days [facility] [place] [facility] Jan 26, 2016 08:36 AM CURRENT SMOKER [facility] [place] [facility] Jan 26, 2016 08:36 AM V1-PT DECLINES REF TO TOBACCO CESS PRGM [facility] [place] [facility] Jan 26, 2016 08:36 AM V1-PT DECLINES TOBACCO CESSATION MEDS [facility] [place] [facility] Jan 26, 2016 08:36 AM V1-PT THINKING ABOUT QUIT TOBACCO USE [facility] [place] [facility] Feb 20, 2015 10:25 AM QUIT TOBACCO USE IN PAST YEAR [facility] [place] [facility] June 17, 2014 07:37 AM CURRENT SMOKER Reports being an off and on smoker -cigarettes [facility] [place] [facility] June 17, 2014 07:37 AM V1-PT DECLINES REF TO TOBACCO CESS PRGM [facility] [place] [facility] June 17, 2014 07:37 AM V1-PT DECLINES TOBACCO CESSATION MEDS [facility] [place] [facility] June 17, 2014 07:37 AM V1-PT THINKING ABOUT QUIT TOBACCO USE [facility] [place] [facility] Sep 14, 2011 09:51 AM CURRENT SMOKER less than a pack a day [facility] [place] [facility] Sep 14, 2011 09:51 AM V1-PT DECLINES REF TO TOBACCO CESS PRGM [facility] [place] [facility] Sep 14, 2011 09:51 AM V1-PT DECLINES TOBACCO CESSATION MEDS [facility] [place] [facility] Sep 14, 2011 09:51 AM V1-PT THINKING ABOUT QUIT TOBACCO USE [facility] [place] [facility] Mar 09, 2010 09:32 AM CURRENT SMOKER 1 ppd [facility] [place] [facility] Mar 09, 2010 09:32 AM V1-PT DECLINES TOBACCO CESSATION MEDS [facility] [place] [facility] Mar 09, 2010 09:32 AM V1-PT REF TO NON-VA TOBACCO CESS PRGM [facility] [place] [facility] Mar 09, 2010 09:32 AM V1-PT [facility] ABOUT [facility] Sep 29, 2009 02:07 PM V1-PT DECLINES REF TO TOBACCO CESS PRGM [facility] Sep 29, 2009 02:07 PM V1-PT DECLINES TOBACCO CESSATION MEDS [facility] Sep 29, 2009 02:07 PM V1-PT NOT INTERESTED IN QUIT TOBACCO USE [facility] Jan 29, 2009 11:00 AM CURRENT SMOKER 1 ppd [facility] Jan 29, 2009 11:00 AM V1-PT DECLINES TOBACCO CESSATION MEDS [facility] Jan 29, 2009 11:00 AM V1-PT READY TO QUIT TOBACCO USE [facility] Mar 17, 2005 08:36 AM CURRENT SMOKER [facility] Advance Directives: All historical and current [...] 11, 2023 ADVANCE DIRECTIVE JACOB DEL TORO [facility] Encounter Notes: All associated encounter notes [...] OPTOMETRY Signed: 03/21/2024 07:09 ADONIS CAMARA CNTRL [facility] Mar 20, 2024 07:34 AM OPTOMETRY NOTE: [...] Glaucoma Suspect 6. Erectile dysfunction (SNOMED CT 445328996) 7. Elevated Prostate Specific Antigen (PSA) 8. Impacted cerumen * 9. Depressive Disorder NEC 10. Nicotine dependence (SNOMED CT 34154313) 11. Hemochromatosis (SNOMED CT 685005473) Active Outpatient Medications (including Supplies): Active Outpatient [...] 100 20/20 OS: +4.25 -1.00 x 080 20 Add: +2.50 All the above performed by [...] C/D: 0.65/0.65 OD, 0.60/0.60 OS; (+)PPA OS (-)drjohn chapman Macula: flat and clear OU Tr [...] OF OPTOMETRY Cosigned: 03/21/2024 07:16 ORAL HOLT [facility]
--- OUTSIDE RECORDS SUMMARY | 2024-06-15 06:56 | XMS_ITS ---
Author Name [facility] [place] Organization [facility] [place] Address [address] [place] [address] Care Team Providers Care Tree Feller Name Role Phone PRINCESS RAMON Primary Care [...] PART B Jul 15, 2013 PART B [id number] BRAD CUENCA JR PATIENT MEDICARE (WNR) MEDICARE (M) PART A Jul 15, 2013 PART A [id number] BRAD CUENCA JR PATIENT MEDICARE (WNR) MEDICARE (M) PART B Jul 15, 2013 PART B [id number] BRAD CUENCA JR PATIENT MEDICARE (WNR) MEDICARE (M) PART A Jul 15, 2013 PART A [id number] BRAD CUENCA JR PATIENT Selected Encounter This section includes the information on record at [place] for the Encounter. Date/Time Encounter Type Encounter Description Reason Provider Source Nov 11, 2023 09:00 AM OFFICE O/P EST HI 40 MIN PRIMARY CARE/MEDICINE ICD-10-CM J43.2 Centrilobular emphysema FURCOLO,PRINCESS IHE Encounter Template Text not used by [place] Assessments - Encounter Diagnoses This section includes the primary and secondary diagnoses documented for the Encounter. Date/Time Primary/Secondary Diagnosis Diagnosis Name Provider Source Nov 11, 2023 12:17 PM PRIMARY Centrilobular emphysema FURCOLO,PRINCESS [facility] [place] [facility] Nov 11, 2023 12:17 PM SECONDARY Benign prostatic hyperplasia without lower urinry tract symp FURCOLO,PRINCESS [facility] [place] [facility] Nov 11, 2023 12:17 PM SECONDARY Nicotine dependence, unsp, w oth nicotine-induced disorders FURCOLO,PRINCESS [facility] [place] [facility] Nov 11, 2023 12:17 PM SECONDARY Other hemochromatosis FURCOLO,PRINCESS [facility] [place] [facility] Nov 11, 2023 12:17 PM SECONDARY Other obesity FURCOLO,PRINCESS [facility] [place] [facility] Plan of Treatment: Future Appointments (+ 6 months) and Future Tests (+/- 45 days) The Plan of Treatment section includes future care activities for the patient [facility] This section includes future appointments and future [...] - MEDICINE [place] [facility] [place] [facility] Nov 29, 2023 09:00 AM AMBULATORY - MEDICINE [place] [facility] [place] [facility] Feb 21, 2024 09:45 AM AMBULATORY - MEDICINE [facility] [place] [facility] Feb 27, 2024 10:00 AM AMBULATORY - MEDICINE [facility] [place] [facility] Mar 20, 2024 09:00 AM AMBULATORY - MEDICINE [facility] [place] [facility] Mar 20, 2024 11:15 AM AMBULATORY - MEDICINE [facility] [place] [facility] May 08, 2024 01:45 PM AMBULATORY - MEDICINE [facility] [place] [facility] May 10, 2024 09:30 AM AMBULATORY - NONE [facility] [place] [facility] May 10, 2024 10:30 AM [facility] Lab Results: +/- 30 days of [...] Unit Interpretation Reference Range Specimen Type Comment Nov 03, 2023 08:12 AM [facility] FERRITIN SERUM Specimen Type: SERUM No comment entered. Ordering Provider: PRINCESS RAMON Report Released Date/Time: Nov 01, 2023 12:47 PM Reporting Lab: [facility] [address] [address] Performing Lab: [facility] [address] [address] FERRITIN 144 ng/mL 20-300 Nov 03, 2023 08:12 AM [facility] IRON & TIBC PANEL SERUM Specimen Type: SERUM No comment entered. Ordering Provider: PRINCESS RAMON Report Released Date/Time: Nov 01, 2023 12:47 PM Reporting Lab: [facility] [address] [address] Performing Lab: [facility] [address] [address] TIBC 268 ug/dL 204-475 IRON 195 ug/dL H 40-160 Transferrin Saturation 72.8 H 20.0-50.0 Transferrin (TRF) 203 mg/dL 200-360 Nov 03, 2023 08:12 AM [facility] CBC BLOOD Specimen Type: BLOOD No comment entered. Ordering Provider: PRINCESS RAMON Report Released Date/Time: Nov 01, 2023 12:47 PM Reporting Lab: [facility] [address] [facility] [address] [address] Performing Lab: [address] [address] WBC 7.31 10*3/uL 4.50-11.00 RBC 5.14 10*6/uL 4.23-5.66 HGB 16.5 g/dL 12.8-17 HCT 49.0 39.2-50.4 MCV 95.3 fL 82-99 MCHC 33.7 g/dL 30.8-35.1 PLT 182 10*3/uL 140-360 RDW-CV 12.3 12.0-16.0 MCH 32.1 pg 26.2-32.6 Nov 03, 2023 08:12 AM [facility] LIVER FUNCTION SERUM Specimen Type: SERUM No comment entered. Ordering Provider: PRINCESS RAMON Report Released Date/Time: Nov 01, 2023 12:47 PM Reporting Lab: [address] [address] Performing Lab: [address] [address] PROTEIN,TOTAL 6.4 g/dL 6.0-8.3 ALBUMIN 4.1 g/dL 3.5-5.0 ALKALINE PHOSPHATASE 75 U/L 40-150 AST 22 U/L 5-34 ALT 35 U/L BILIRUBIN, TOTAL 0.6 mg/dL 0.2-1.2 Vital Signs: All taken on the encounter date This section contains inpatient and outpatient Vital Signs collected on the date of the Encounter. Date/Time Temperature Pulse Blood Pressure Respiratory Rate SP02 Pain Height Weight Body Mass Index Source Nov 11, 2023 12:06 PM 138/70 [facility] Nov 11, 2023 09:02 AM 98.7 107 154/90 16 90 0 265 37 [facility] Social History: Smoking Status (Most current) and [...] took place. Date/Time Current Smoking Status Comment [facility] Jan 12, 2023 09:00 AM VA-TOBACCO USER EVERY DAY [facility] [place] [facility] Tobacco Use History This section includes a history of the smoking, or tobacco-related health factors, that were collected on or before the date of the Encounter. The data comes from the [place] facility where the Encounter took place. Date/Time Smoking Status/Tobac co Use Comment Facility Jan 12, 2023 09:00 AM VA-TOBACCO USE 30 YEARS OR MORE [facility] [place] [facility] Jan 12, 2023 09:00 AM VA-TOBACCO USE ADVICE [facility] [place] [facility] Jan 12, 2023 09:00 AM VA-TOBACCO USE INVESTIGATIVE ANALYST NO [facility] [place] [facility] Jan 12, 2023 09:00 AM VA-TOBACCO USE MED NO [facility] [place] [facility] Jan 12, 2023 09:00 AM VA-TOBACCO USER EVERY DAY [facility] [place] [facility] Oct 23, 2021 08:00 AM VA-TOBACCO DOESNT USE WI 30 MIN WAKEUP [facility] [place] [facility] Oct 23, 2021 08:00 AM VA-TOBACCO USE 30 YEARS OR MORE [facility] [place] [facility] Oct 23, 2021 08:00 AM VA-TOBACCO USE ADVICE [facility] [place] [facility] Oct 23, 2021 08:00 AM VA-TOBACCO USE INVESTIGATIVE ANALYST NO [facility] [place] [facility] Oct 23, 2021 08:00 AM VA-TOBACCO USE MED NO [facility] [place] [facility] Oct 23, 2021 08:00 AM VA-TOBACCO USER EVERY DAY [facility] [place] [facility] Oct 29, 2020 10:00 AM VA-TOBACCO DOESNT USE WI 30 MIN WAKEUP [facility] [place] [facility] Oct 29, 2020 10:00 AM VA-TOBACCO USE 30 YEARS OR MORE [facility] [place] [facility] Oct 29, 2020 10:00 AM VA-TOBACCO USE ADVICE [facility] [place] [facility] Oct 29, 2020 10:00 AM VA-TOBACCO USE INVESTIGATIVE ANALYST YES [facility] [place] [facility] Oct 29, 2020 10:00 AM VA-TOBACCO USE MED NOTIFY PROVIDER [facility] Oct 29, 2020 10:00 AM VA-TOBACCO USER EVERY DAY [facility] [place] [facility] Oct 10, 2019 11:00 AM VA-TOBACCO FORMER USER [facility] [place] [facility] Oct 10, 2019 11:00 AM VA-TOBACCO QUIT < 1 YEAR [facility] [place] [facility] Oct 26, 2018 07:55 AM VA-TOBACCO USE > 15 LESS THAN 30 YEARS [facility] [place] [facility] Oct 26, 2018 07:55 AM VA-TOBACCO USE ADVICE [facility] [place] [facility] Oct 26, 2018 07:55 AM VA-TOBACCO USE INVESTIGATIVE ANALYST NO [facility] [place] [facility] Oct 26, 2018 07:55 AM VA-TOBACCO USE MED NO [facility] [place] [facility] Oct 26, 2018 07:55 AM VA-TOBACCO USE WI 30 MIN OF WAKEUP [facility] [place] [facility] Oct 26, 2018 07:55 AM VA-TOBACCO USER EVERY DAY [facility] [place] [facility] Aug 04, 2017 08:53 AM CURRENT SMOKER [facility] [place] [facility] Aug 04, 2017 08:53 AM V1-PT DECLINES REF TO TOBACCO CESS PRGM [facility] [place] [facility] Aug 04, 2017 08:53 AM V1-PT DECLINES TOBACCO CESSATION MEDS [facility] [place] [facility] Aug 04, 2017 08:53 AM V1-PT THINKING ABOUT QUIT TOBACCO USE [facility] [place] [facility] Jan 31, 2017 09:51 AM QUIT TOBACCO USE IN PAST YEAR 31 days [facility] [place] [facility] Jan 26, 2016 08:36 AM CURRENT SMOKER [facility] [place] [facility] Jan 26, 2016 08:36 AM V1-PT DECLINES REF TO TOBACCO CESS PRGM [facility] [place] [facility] Jan 26, 2016 08:36 AM V1-PT DECLINES TOBACCO CESSATION MEDS [facility] [place] [facility] Jan 26, 2016 08:36 AM V1-PT THINKING ABOUT QUIT TOBACCO USE [facility] [place] [facility] Feb 20, 2015 10:25 AM QUIT TOBACCO USE IN PAST YEAR [facility] [place] [facility] June 17, 2014 07:37 AM CURRENT SMOKER Reports being an off and on smoker -cigarettes [facility] [place] [facility] June 17, 2014 07:37 AM V1-PT DECLINES REF TO TOBACCO CESS PRGM [facility] [place] [facility] June 17, 2014 07:37 AM V1-PT DECLINES TOBACCO CESSATION MEDS [facility] [place] [facility] June 17, 2014 07:37 AM V1-PT THINKING ABOUT QUIT TOBACCO USE [facility] [place] [facility] Sep 14, 2011 09:51 AM CURRENT SMOKER less than a pack a day [facility] Sep 14, 2011 09:51 AM V1-PT DECLINES REF TO TOBACCO CESS PRGM [facility] [place] [facility] Sep 14, 2011 09:51 AM V1-PT DECLINES TOBACCO CESSATION MEDS [facility] Sep 14, 2011 09:51 AM V1-PT THINKING ABOUT QUIT TOBACCO USE [facility] [place] [facility] Mar 09, 2010 09:32 AM CURRENT SMOKER 1 ppd [facility] [place] [facility] Mar 09, 2010 09:32 AM V1-PT DECLINES TOBACCO CESSATION MEDS [facility] [place] [facility] Mar 09, 2010 09:32 AM V1-PT REF TO NON-VA TOBACCO CESS PRGM [facility] [place] [facility] Mar 09, 2010 09:32 AM V1-PT THINKING ABOUT QUIT TOBACCO USE [facility] [place] [facility] Sep 29, 2009 02:07 PM V1-PT DECLINES REF TO TOBACCO CESS PRGM [facility] [place] [facility] Sep 29, 2009 02:07 PM V1-PT DECLINES TOBACCO CESSATION MEDS [facility] Sep 29, 2009 02:07 PM V1-PT NOT INTERESTED IN QUIT TOBACCO USE [facility] [place] [facility] Jan 29, 2009 11:00 AM CURRENT SMOKER 1 ppd [facility] Jan 29, 2009 11:00 AM V1-PT DECLINES TOBACCO CESSATION MEDS [facility] Jan 29, 2009 11:00 AM V1-PT READY TO QUIT TOBACCO USE [facility] Mar 17, 2005 08:36 AM CURRENT SMOKER [facility] Advance Directives: All historical and current [...] 11, 2023 ADVANCE DIRECTIVE JACOB DEL TORO [facility] Encounter Notes: All associated encounter notes This section contains the clinical notes associated to the Encounter. Date/Time Encounter Note(s) Provider Source Nov 11, 2023 12:18 PM ADDENDUM: LOCAL TITLE: Addendum STANDARD TITLE: ADDENDUM DATE OF NOTE: NOV 11, 2023@12:18:55 ENTRY DATE: NOV 11, 2023@12:18:56 AUTHOR: PRINCESS RAMON COSIGNER: URGENCY: STATUS: COMPLETED please fax to outside PCP Dr. Jasper Asencio [place]-FAX [phone] /natalie/ PRINCESS RAMON D.O. PHYSICIAN Signed: 11/11/2023 12:19 Receipt Acknowledged By: 11/11/2023 13:59 /avani DEL TORO AMSA --- Original Document --- 11/11/23 NOTE: BANGBRAD HERMAN is a 73 year old WHITE MALE who is being seen today in primary care for routine follow up. CARE TEAM Community Primary Care Provider: Dr. Jasper Asencio, [place] [employer]- phone [phone], FAX [phone] newrequesting taht I fax him visist note an dprevious labs [facility] Specialists: Community Specialists: phlebotomy- [facility] For hemachromatosis- monthly blood draws, 500 cc, hold if Hb 12 or lower changed to q 2 mo blood draws, 450 cc, hold for Hb<12 pulmonology- Dr. Dockery, [facility]- Dr. Montanez/Rosi (does not want to go back to) HISTORY PERIOD OF SERVICE - [place] SERVICE CONNECTED % - NONE FOUND [employer], [phone], [facility] HISTORY OF PRESENT ILLNESS Patient presents today [...] procedure. did not liek urologist office in [place] RELEVANT PAST MEDICAL HISTORY Active problems - Computerized Problem List is the source for the followin. Centriacinar emphysema 2. Impaired fasting glucose 3. Benign prostatic hyperplasia 4. Obesity 5. Open Angle Glaucoma Suspect 6. Counseling on Sexually Transmitted Diseases 7. History of colonoscopy Multihyperplastic polyps rectosigmoid, 3 - 5 yr f/u, screening colonoscopy was done 2016 8. Erectile dysfunction (SNOMED CT 632672972) 9. Elevated Prostate Specific Antigen (PSA) 10. Impacted cerumen * 11. Depressive Disorder NEC 12. Nicotine dependence (SNOMED CT 08839424) 13. Hemochromatosis (SNOMED CT 514012307) DR Hunter at [facility], phlebotomy. PAST SURGICAL HISTORY appendectomy tonsillectomy FAMILY HISTORY Mother: at age 81, sepsis after hernia operation - knicked her bowel Father: at 76, ? cancer of GI tract Siblings: 4 brother- of drugs, cocaine no known thyroid or pancreatic cancers SOCIAL HISTORY Background: born and raised in [place], [place]. 2 years at [employer] Marital Status: single, never Children: none Lives [...] SERUM CO2 31 H mEq/L 20 - 30 01/04/2023 07:41 SERUM CREATININE, Serum 0.95 mg/dL [...] 173 PSA TREND Collection DT Spec PSA - 04/12/2018 07:01 SERUM 3.13 11/24/2017 07:13 SERUM [...] single form firnds. has had LDCT from 7733-1480. last 04/2023: Decreasing size of the right [...] due 2026 Lung Ca screening- negatiev from 2011-8613, no need to continue LDCTs Abdominal Aortic [...] 11/11/2023 09:00 CWM/NO/PACT EIGHT 11/29/2023 09:00 CWM/NO/DERMATOLOGY EVICTION SPECIALIST AM 03/20/2024 09:00 CWM/NO/OPTOMETRY/JAX /es/ Oc LORD.O. PHYSICIAN Signed: 11/11/2023 12:18 PRINCESS RAMON [facility] [place] [facility] Nov 11, 2023 09:05 AM PREVENTIVE MEDICINE NURSING NOTE: LOCAL TITLE: CLINICAL REMINDERS/NURSING STANDARD TITLE: PREVENTIVE MEDICINE NURSING NOTE DATE OF NOTE: NOV 11, 2023@09:05 ENTRY DATE: NOV 11, 2023@09:05:07 AUTHOR: EVELIN DELGADO EXP COSIGNER: URGENCY: STATUS: COMPLETED Suicide Screen: C-SSRS Screening [place] Suicide Severity Rating Scale (C-SSRS) screener 1. [...] 11/11/2023 09:06 SEAN DELGADO [facility]L [facility] [place] [facility] Nov 11, 2023 07:56 AM PHYSICIAN NOTE: LOCAL TITLE: MD NOTE STANDARD TITLE: PHYSICIAN NOTE DATE OF NOTE: NOV 11, 2023@07:56 ENTRY DATE: NOV 11, 2023@07:56:05 AUTHOR: PRINCESS RAMON COSIGNER: URGENCY: STATUS: COMPLETED NOTE Has ADDENDA BANGBRAD is a 73 year old WHITE MALE who is being seen today in primary care for routine follow up. CARE TEAM Community Primary Care Provider: Dr. Jasper Asencio, [facility]- phone [phone], FAX [phone] newrequesting taht I fax him visist note an dprevious labs [facility] Special[facility]: Community Specialists: phlebotomy- [facility] For hemachromatosis- monthly blood draws, 500 cc, hold if Hb 12 or lower changed to q 2 mo blood draws, 450 cc, hold for Hb<12 pulmonology- Dr. Dockery, [facility]- Dr. Montanez/Rosi (does not want to go back to) HISTORY PERIOD OF SERVICE - [place] SERVICE CONNECTED % - NONE FOUND [employer], [employer], [phone], [place] HISTORY OF PRESENT ILLNESS Patient presents today [...] procedure. did not liek urologist office in [place] RELEVANT PAST MEDICAL HISTORY Active problems - Computerized Problem List is the source for the followin. Centriacinar emphysema 2. Impaired fasting glucose 3. Benign prostatic hyperplasia 4. Obesity 5. Open Angle Glaucoma Suspect 6. Counseling on Sexually Transmitted Diseases 7. History of colonoscopy Multihyperplastic polyps rectosigmoid, 3 - 5 yr f/u, screening colonoscopy was done 2016 8. Erectile dysfunction (SNOMED CT 284929903) 9. Elevated Prostate Specific Antigen (PSA) 10. Impacted cerumen * 11. Depressive Disorder NEC 12. Nicotine dependence (SNOMED CT 47856352) 13. Hemochromatosis (SNOMED CT 728130649) DR Hunter at [facility], phlebotomy. PAST SURGICAL HISTORY appendectomy tonsillectomy FAMILY HISTORY Mother: at age 81, sepsis after hernia operation - knicked her bowel Father: at 76, ? cancer of GI tract Siblings: 4 brother- of drugs, cocaine no known thyroid or pancreatic cancers SOCIAL HISTORY Background: born and raised in [place], [place]. 2 years at [employer] Marital Status: single, never Children: none Lives [...] SERUM CO2 31 H mEq/L 20 - 30 01/04/2023 07:41 SERUM CREATININE, Serum 0.95 mg/dL [...] single form firnds. has had LDCT from 2020-9924. last 04/2023: Decreasing size of the right [...] due 2026 Lung Ca screening- negatiev from 2868-4045, no need to continue LDCTs Abdominal Aortic [...] 11/11/2023 09:00 CWM/NO/PACT EIGHT 11/29/2023 09:00 CWM/NO/DERMATOLOGY EVICTION SPECIALIST AM 03/20/2024 09:00 CWM/NO/OPTOMETRY/JAX /es/ PRINCESS RAMON D.O. PHYSICIAN Signed: 11/11/2023 12:18 11/11/2023 ADDENDUM STATUS: COMPLETED please fax to outside PCP Iesha [employer]-FAX [phone] /natalie/ PRINCESS RAMON D.O. PHYSICIAN Signed: 11/11/2023 12:19 Receipt Acknowledged By: * AWAITING SIGNATURE * JACOB DEL TORO TINA [facility] Nov 03, 2023 01:08 PM LETTERS: LOCAL TITLE: PATIENT LETTER (T) STANDARD TITLE: LETTERS DATE OF NOTE: NOV 03, 2023@13:08 ENTRY DATE: NOV 03, 2023@13:09:02 AUTHOR: PRINCESS RAMON EXP COSIGNER: URGENCY: STATUS: COMPLETED [facility] Toll Free Number Primary Care Telephone Assistance can be reached at extension [phone] [place] [facility] scheduling can be reached at extension [phone] [place] [facility] scheduling can be reached at ext [phone] BRAD HERMAN [address], [address] Dear , Your recent test results are as follows: ferritin level is good as <300. will fax to [facility] as well LAB CHEMISTRY & HEMATOLOGY Collection [...] 11/11/2023 09:00 CWM/NO/PACT EIGHT 11/29/2023 09:00 CWM/NO/DERMATOLOGY EVICTION SPECIALIST AM 03/20/2024 09:00 CWM/NO/OPTOMETRY/JAX Sincerely, Your Primary Care Team [facility] [address] [place] [address] [place] [address] [phone] [place] [facility] [address] [place] [address] [place] [address] [phone] [facility] [address] [facility] [place] [phone] [place] [address] PRINCESS RAMON [facility]
--- OUTSIDE RECORDS SUMMARY | 2024-06-15 06:56 | XMS_ITS ---
Author Name [facility] Organization [facility] Address [address] [place] [address] Care Team Providers Care Executive Chef Name Role Phone PRINCESS RAMON Primary Care [...] PART A Jul 15, 2013 PART A [id number] BRAD CUENCA JR PATIENT MEDICARE (WNR) MEDICARE (M) PART B Jul 15, 2013 PART B [id number] BRAD CUENCA JR PATIENT MEDICARE (WNR) MEDICARE (M) PART A Jul 15, 2013 PART A [id number] BRAD CUENCA JR PATIENT MEDICARE (WNR) MEDICARE (M) PART B Jul 15, 2013 PART B [id number] BRAD CUENCA JR PATIENT Selected Encounter This section includes the information on record at ME for the Encounter. Date/Time Encounter Type Encounter Description Reason Provider Source Nov 29, 2023 09:00 AM OFFICE O/P NEW MOD 45 MIN DERMATOLOGY ICD-10-CM L57.0 Actinic keratosis CARLITOKISHORT KEYSHA Rajwinder Encounter Template Text not used by VA Assessments - Encounter Diagnoses This section includes the primary and secondary diagnoses documented for the Encounter. Date/Time Primary/Secondary Diagnosis Diagnosis Name Provider Source Nov 29, 2023 10:04 AM PRIMARY Actinic keratosis DAVID ESTEBAN [facility] [place] [facility] Nov 29, 2023 10:04 AM SECONDARY Hemangioma of skin and subcutaneous tissue [facility] [facility] Nov 29, 2023 10:04 AM SECONDARY Neoplasm of uncertain behavior of skin [facility] [facility] Nov 29, 2023 10:04 AM SECONDARY Other hypertrophic disorders of the skin [facility] [facility] Nov 29, 2023 10:04 AM SECONDARY Other melanin hyperpigmentation [facility] [facility] Nov 29, 2023 10:04 AM SECONDARY Other seborrheic keratosis [facility] [place] [facility] Nov 29, 2023 10:04 AM SECONDARY Personal history of other malignant neoplasm of skin [facility] [facility] Nov 29, 2023 10:04 AM SECONDARY Xerosis cutis [facility] [facility] Plan of Treatment: Future Appointments (+ 6 months) and Future Tests (+/- 45 days) The Plan of Treatment section includes future care activities for the patient [facility] This section includes future appointments and future orders which are active, pending or scheduled. Future Appointments This section includes appointments that were scheduled to occur 6 months from the date of the Encounter, up to a maximum of 20 appointments. The data comes from all ME treatment facilities. Appointment Date/Time Appointment Type Appointme nt Facility Name Feb 21, 2024 09:45 AM AMBULATORY - MEDICINE [place] C [facility] [facility] Feb 27, 2024 10:00 AM AMBULATORY - MEDICINE [facility] C [facility] [place] [facility] Mar 20, 2024 09:00 AM AMBULATORY - MEDICINE ME C [facility] [place] [facility] Mar 20, 2024 11:15 AM AMBULATORY - MEDICINE ME C [facility] [place] [facility] May 08, 2024 01:45 PM AMBULATORY - MEDICINE ME C [facility] [place] [facility] May 10, 2024 09:30 AM [facility] May 10, 2024 10:30 AM AMBULATORY - MEDICINE [facility] Active, Pending, and Scheduled Orders This section includes a listing of several types of active, pending, and scheduled orders, including clinic medications orders, diagnostic test orders, procedure orders and consult orders; where the start date of the order is 45 days before the date of the Encounter or 45 days after the date of theEncounter. The data comes from all ME treatment facilities. Test Date/Time Test Type Test Details Facility Name Jan 05, 2024 08:22 AM Consult Order [facility] Cons [employer] [facility] Lab Results: +/- 30 days of [...] Type Comment Nov 03, 2023 08:12 AM [facility] FERRITIN SERUM Specimen Type: SERUM No comment entered. Ordering Provider: PRINCESS RAMON Report Released Date/Time: Nov 01, 2023 12:47 PM Reporting Lab: [facility] [address] [facility] [address] Performing Lab: [address] [address] FERRITIN 144 ng/mL 20-300 Nov 03, 2023 08:12 AM [facility] IRON & TIBC PANEL SERUM Specimen Type: SERUM No comment entered. Ordering Provider: PRINCESS RAMON Report Released Date/Time: Nov 01, 2023 12:47 PM Reporting Lab: [facility] [address] [facility] [address] Performing Lab: [address] [address] TIBC 268 ug/dL 204-475 IRON 195 ug/dL H 40-160 Transferrin Saturation 72.8 H 20.0-50.0 Transferrin (TRF) 203 mg/dL 200-360 Nov 03, 2023 08:12 AM [facility] CBC BLOOD Specimen Type: BLOOD No comment entered. Ordering Provider: PRINCESS RAMON Report Released Date/Time: Nov 01, 2023 12:47 PM Reporting Lab: [address] [address] Performing Lab: [address] [address] WBC 7.31 10*3/uL 4.50-11.00 RBC 5.14 10*6/uL 4.23-5.66 HGB 16.5 g/dL 12.8-17 HCT 49.0 39.2-50.4 MCV 95.3 fL 82-99 MCHC 33.7 g/dL 30.8-35.1 PLT 182 10*3/uL 140-360 RDW-CV 12.3 12.0-16.0 MCH 32.1 pg 26.2-32.6 Nov 03, 2023 08:12 AM [facility] LIVER FUNCTION SERUM Specimen Type: SERUM No comment entered. Ordering Provider: PRINCESS RAMON Report Released Date/Time: Nov 01, 2023 12:47 PM Reporting Lab: [address] [address] Performing Lab: [address] [address] PROTEIN,TOTAL 6.4 g/dL 6.0-8.3 ALBUMIN 4.1 g/dL 3.5-5.0 ALKALINE PHOSPHATASE 75 U/L 40-150 AST 22 U/L 5-34 ALT 35 U/L BILIRUBIN, TOTAL 0.6 mg/dL 0.2-1.2 Social History: Smoking Status (Most current) and Tobacco Use (All prior to encounter date) This section includes the most current, and the historical, smoking and tobacco- related health factors from the ME facility where the Encounter took place. Current Smoking Status This section includes the most current smoking, or tobacco-related health factor, from the ME facility where the Encounter took place. Date/Time Current Smoking Status Comment [facility] it Jan 12, 2023 09:00 AM VA-TOBACCO USER EVERY DAY ME [facility] [facility] Tobacco Use History This section includes a history of the smoking, or tobacco-related health factors, that were collected on or before the date of the Encounter. The data comes from the ME facility where the Encounter took place. Date/Time Smoking Status/Tobac co Use Comment [facility] Jan 12, 2023 09:00 AM VA-TOBACCO USE 30 YEARS OR MORE [facility] [place] [facility] Jan 12, 2023 09:00 AM VA-TOBACCO USE ADVICE ME [facility] [place] [facility] Jan 12, 2023 09:00 AM VA-TOBACCO USE TARGET SETTER NO ME [facility] [place] [facility] Jan 12, 2023 09:00 AM VA-TOBACCO USE MED NO ME [facility] [place] [facility] Jan 12, 2023 09:00 AM VA-TOBACCO USER EVERY DAY [facility] [facility] Oct 23, 2021 08:00 AM VA-TOBACCO DOESNT USE WI 30 MIN WAKEUP [facility] [place] [facility] Oct 23, 2021 08:00 AM VA-TOBACCO USE 30 YEARS OR MORE [facility] [place] [facility] Oct 23, 2021 08:00 AM VA-TOBACCO USE ADVICE [facility] [place] [facility] Oct 23, 2021 08:00 AM VA-TOBACCO USE TARGET SETTER NO [facility] [place] [facility] Oct 23, 2021 08:00 AM VA-TOBACCO USE MED NO [facility] [place] [facility] Oct 23, 2021 08:00 AM VA-TOBACCO USER EVERY DAY [facility] [place] [facility] Oct 29, 2020 10:00 AM VA-TOBACCO DOESNT USE WI 30 MIN WAKEUP [facility] [facility] Oct 29, 2020 10:00 AM VA-TOBACCO USE 30 YEARS OR MORE [facility] [place] [facility] Oct 29, 2020 10:00 AM VA-TOBACCO USE ADVICE [facility] [place] [facility] Oct 29, 2020 10:00 AM VA-TOBACCO USE TARGET SETTER YES [facility] [facility] Oct 29, 2020 10:00 AM VA-TOBACCO USE MED NOTIFY PROVIDER [facility] [place] [facility] Oct 29, 2020 10:00 AM VA-TOBACCO USER EVERY DAY [facility] [place] [facility] Oct 10, 2019 11:00 AM VA-TOBACCO FORMER USER ME [facility] [place] [facility] Oct 10, 2019 11:00 AM VA-TOBACCO QUIT < 1 YEAR [facility] [place] [facility] Oct 26, 2018 07:55 AM VA-TOBACCO USE > 15 LESS THAN 30 YEARS ME [facility] [place] [facility] Oct 26, 2018 07:55 AM VA-TOBACCO USE ADVICE [facility] [place] [facility] Oct 26, 2018 07:55 AM VA-TOBACCO USE TARGET SETTER NO ME [facility] [place] [facility] Oct 26, 2018 07:55 AM VA-TOBACCO USE MED NO [facility] [place] [facility] Oct 26, 2018 07:55 AM VA-TOBACCO USE WI 30 MIN [facility] [place] [facility] Oct 26, 2018 07:55 AM VA-TOBACCO USER EVERY DAY [facility] [place] [facility] Aug 04, 2017 08:53 AM CURRENT SMOKER [facility] [place] [facility] Aug 04, 2017 08:53 AM V1-PT DECLINES REF TO TOBACCO CESS PRGM [facility] [place] [facility] Aug 04, 2017 08:53 AM V1-PT DECLINES TOBACCO CESSATION MEDS ME [facility] [place] [facility] Aug 04, 2017 08:53 AM V1-PT THINKING ABOUT QUIT TOBACCO USE [facility] [place] [facility] Jan 31, 2017 09:51 AM QUIT TOBACCO USE IN PAST YEAR 31 days [facility] [place] [facility] Jan 26, 2016 08:36 AM CURRENT SMOKER [facility] [place] [facility] Jan 26, 2016 08:36 AM V1-PT DECLINES REF TO TOBACCO CESS PRGM [facility] [facility] Jan 26, 2016 08:36 AM V1-PT DECLINES TOBACCO CESSATION MEDS [facility] Jan 26, 2016 08:36 AM V1-PT THINKING ABOUT QUIT TOBACCO USE [facility] [place] [facility] Feb 20, 2015 10:25 AM QUIT TOBACCO USE IN PAST YEAR [facility] [place] [facility] June 17, 2014 07:37 AM CURRENT SMOKER Reports being an off and on smoker -cigarettes [facility] June 17, 2014 07:37 AM V1-PT DECLINES REF TO TOBACCO CESS [facility] June 17, 2014 07:37 AM V1-PT DECLINES TOBACCO CESSATION MEDS [facility] June 17, 2014 07:37 AM V1-PT THINKING ABOUT QUIT TOBACCO USE [facility] Sep 14, 2011 09:51 AM CURRENT SMOKER less than a pack a day [facility] Sep 14, 2011 09:51 AM V1-PT DECLINES REF TO TOBACCO CESS PRGM [facility] Sep 14, 2011 09:51 AM V1-PT DECLINES TOBACCO CESSATION MEDS [facility] Sep 14, 2011 09:51 AM V1-PT THINKING ABOUT QUIT TOBACCO USE [facility] [facility] Mar 09, 2010 09:32 AM CURRENT SMOKER 1 ppd [facility] Mar 09, 2010 09:32 AM V1-PT DECLINES TOBACCO CESSATION MEDS [facility] Mar 09, 2010 09:32 AM V1-PT REF TO NON-VA TOBACCO CESS PRGM [facility] Mar 09, 2010 09:32 AM V1-PT THINKING ABOUT QUIT TOBACCO USE [facility] [place] [facility] Sep 29, 2009 02:07 PM V1-PT DECLINES REF TO TOBACCO CESS PRGM [facility] Sep 29, 2009 02:07 PM V1-PT DECLINES TOBACCO CESSATION MED[facility] Sep 29, 2009 02:07 PM V1-PT NOT INTERESTED IN QUIT TOBACCO [facility] Jan 29, 2009 11:00 AM CURRENT SMOKER 1 ppd [facility] Jan 29, 2009 11:00 AM V1-PT DECLINES TOBACCO CESSATION MEDS [facility] Jan 29, 2009 11:00 AM V1-PT READY TO QUIT TOBACCO USE [facility] Mar 17, 2005 08:36 AM CURRENT SMOKER [facility] Advance Directives: All historical and current Section Date Range: From patient's date of to the date document was created. This section includes ALL of a patient's completed or amended ME Advance and Rescinded Directives. The entries below indicate that a directive exists for the patient, but an actual copy is not included with this document. The data comes from all ME facilities. Date Advance Directives Provider Source Nov 11, 2023 ADVANCE DIRECTIVE [facility] Encounter Notes: All associated encounter [...] CHIEF COMPLAINT: 'Actinic Keratosis' per consule HPI: reports arms, legs, ankles with white, ramsay and brown crusty bumps. Also with a lesion on abd and on face. Reports none of the lesions are painful or itchy. Rufus denies any other new/changing/bleeding/non-heali ng lesions. Reviewed records in [facility] and Remote Data (all available). REVIEW [...] on peripheral -generalized xerosis Diagnosis/Plan: #Actinic Keratosis: -Rufus educated on relationship to squamous cell carcinoma. [...] symptomatic to notify clinic. #Seborrheic Keratoses: -The Rufus was educated regarding the benign nature, but [...] emollients RTC 1 yr, sooner PRN * Rufus educated to RTC cristobal if any new, changing, non-healing, or symptomatic lesions. * Education on sun protection and avoidance strategies was provided. * Encouraged monthly skin self exams for lesions changing in size, shape, or color, or non-healing lesions * Differential diagnosis, prescription options and risks/benefits were discussed with the patient, who consented to treatment plan. * Rufus consented to photography for documentation if indicated. [...] this VA (local) and dispensed from another VA or DoD facility [...] Remote Allergy/ADR Data available for this patient [facility] (Tool #1) INCLUDED IN THIS LIST: Alphabetical list of active outpatient prescriptions dispensed from this ME (local) and dispensed from another ME or [facility] facility (remote) as well as inpatient orders (local pending and active), local clinic medications, locally documented non-VA medications, and local prescriptions that have or been discontinued in the past 90 days. Non-VA Meds Last Documented On: Data not found NOTE The display of VA prescriptions dispensed from another ME or DoD facility (remote) is limited to active outpatient prescription entries matched to National Drug File at the originating site and may not include some items such as investigational drugs, compounds, etc. NOT INCLUDED IN THIS LIST: Medications self-entered by the patient into personal health records (i.e. [email or web address]) are NOT included in this list. Non-VA medications documented outside this ME, remote inpatient orders (regardless of status) and remote clinic medications are NOT included in this list. The patient and provider must always discuss medications the patient is taking, regardless of where the medication was dispensed or obtained. OUTPT ALBUTEROL 90MCG (CFC-F) 200D ORAL INHL (Status = Discontinued) INHALE 2 PUFFS BY MOUTH FOUR TIMES DAILY NEEDED FOR BREATHING Rx# [id number] Last Released: 08/17/23 Qty/Days Supply: 03/15 Rx Expiration Date: 08/16/24 Refills Remainin OUTPT ALBUTEROL 90MCG (CFC-F) 200D ORAL INHL (Status = Active) INHALE 2 PUFFS BY MOUTH FOUR TIMES DAILY NEEDED FOR BREATHING Rx# [id number] Last Released: Qty/Days Supply: Rx Expiration Date: 11/25/24 Refills Remainin OUTPT CARBOXYMETHYLCELLULOSE NA 0.5% OPH SOLN (Status = Active) INSTILL 1 DROP INTO EACH EYE FOUR TIMES DAILY NEEDED FOR DRY EYE Rx# [id number] Last Released: 03/05/23 Qty/Days Supply: Rx Expiration Date: 03/01/24 Refills Remainin Indication: FOR DRY EYE OUTPT FINASTERIDE 5MG TAB (Status = Active) TAKE ONE TABLET BY MOUTH ONCE DAILY FOR PROSTATE Rx# [id number] Last Released: 08/29/23 Qty/Days Supply: Rx Expiration Date: 01/13/24 Refills Remainin OUTPT FLUTICAS 250/SALMETEROL 50 INHL DISK 60 (Status = Active) INHALE 1 PUFF BY MOUTH TWICE DAILY FOR BREATHING - RINSE MOUTH AFTER USE Rx# [id number] Last Released: 08/29/23 Qty/Days Supply: 03/15 Rx Expiration Date: 08/16/24 Refills Remainin OUTPT LIDOCAINE 5% PATCH (Status = Active) APPLY 1 PATCH TOPICALLY ONCE DAILY FOR NERVE PAIN (LEAVE PATCH ON FOR 12 HOURS, THEN REMOVE PATCH) Rx# [id number] Last Released: 11/14/23 Qty/Days Supply: Rx Expiration Date: 11/11/24 Refills Remainin Indication: FOR NERVE PAIN OUTPT TAMSULOSIN HCL 0.4MG CAP (Status = Active) TAKE ONE CAPSULE BY MOUTH AT BEDTIME Rx# [id number] Last Released: 09/22/23 Qty/Days Supply: Rx Expiration Date: 08/16/24 Refills Remainin OUTPT THEOPHYLLINE 400MG 24HR SA TAB (Status = Discontinued) TAKE ONE TABLET BY MOUTH ONCE DAILY Rx# [id number] Last Released: 04/07/23 Qty/Days Supply: Rx Expiration Date: 04/06/24 Refills Remainin OUTPT TIOTROPIUM 2.5MCG/ACTUAT 60D ORAL INHL (Status = Active) INHALE 2 PUFFS BY MOUTH ONCE DAILY Rx# [id number] Last Released: 08/29/23 Qty/Days Supply: 1/30 Rx Expiration Date: 08/16/24 Refills Remainin SUPPLIES /natalie/ ALECIA ESTEBAN DNP, TOWN CLERK-C NURSE PRACTITIONER Signed: 11/29/2023 10:03 ALECIA ESTEBAN [facility]
--- OUTSIDE RECORDS SUMMARY | 2024-06-15 06:56 | XMS_ITS | Encounter Summary ---
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 Date/Time Encounter Type Encounter Description Reason Provider Source Mar 20, 2024 11:15 AM CPTRZD OPH DX IMG ANT SGM OPTOMETRY ICD-10-CM H40.013 Open angle with borderline findings, low risk, bilateral PROMISE CAMARA Rajwinder E Encounter Template Text not used by [place] Assessments - Encounter Diagnoses This section includes the primary and secondary diagnoses documented for the Encounter. Date/Time Primary/Secondary Diagnosis Diagnosis Name Provider Source Mar 21, 2024 07:19 AM PRIMARY Open angle with borderline findings, low risk, bilateral [facility] Mar 21, 2024 07:19 AM SECONDARY Anatomical narrow angle, bilateral [facility] Plan of Treatment: Future Appointments (+ 6 months) and Future Tests (+/- 45 days) The Plan of Treatment section includes future care activities for the [facility] [place] [facility] This section includes future appointments and future orders which are active, pending or scheduled. Future Appointments This section includes appointments that were scheduled to occur 6 months from the date of the Encounter, up to a maximum of 20 appointments. The data comes from all [place] treatment facilities. Appointment Date/Time Appointment Type Appointme nt Facility Name May 08, 2024 01:45 PM AMBULATORY - MEDICINE [facility] May 10, 2024 09:30 AM AMBULATORY - NONE [facility] May 10, 2024 10:30 AM AMBULATORY - MEDICINE [facility] Social History: Smoking Status (Most current) and Tobacco Use (All prior to encounter date) This section includes the most current, and the historical, smoking and tobacco- related health factors from the [place] facility where the Encounter took place. Current Smoking Status This section includes the most current smoking, or tobacco-related health factor, from the [place] facility where the Encounter took place. Date/Time Current Smoking Status Comment Shanell gale Jan 12, 2023 09:00 AM VA-TOBACCO USER EVERY DAY [facility] Tobacco Use History This section includes a history of the smoking, or tobacco-related health factors, that were collected on or before the date of the Encounter. The data comes from the [place] facility where the Encounter took place. Date/Time Smoking Status/Tobac co Use Comment Facility Jan 12, 2023 09:00 AM VA-TOBACCO USE 30 YEARS OR MORE [facility] [place] [facility] Jan 12, 2023 09:00 AM VA-TOBACCO USE ADVICE [facility] [place] [facility] Jan 12, 2023 09:00 AM VA-TOBACCO USE CULTURED [employer] MAKER NO [facility] [place] [facility] Jan 12, 2023 09:00 AM VA-TOBACCO USE MED NO [facility] [place] [facility] Jan 12, 2023 09:00 AM VA-TOBACCO USER EVERY DAY [facility] [place] [facility] Oct 23, 2021 08:00 AM VA-TOBACCO DOESNT USE WI 30 MIN WAKEUP [place] [facility] [place] [facility] Oct 23, 2021 08:00 AM VA-TOBACCO USE 30 YEARS OR MORE [facility] [place] [facility] Oct 23, 2021 08:00 AM VA-TOBACCO USE ADVICE [facility] [place] [facility] Oct 23, 2021 08:00 AM VA-TOBACCO USE CULTURED [employer] MA[employer] NO [facility] [place] [facility] Oct 23, 2021 08:00 AM VA-TOBACCO USE MED NO [facility] [place] [facility] Oct 23, 2021 08:00 AM VA-TOBACCO USER EVERY DAY [facility] [place] [facility] Oct 29, 2020 10:00 AM VA-TOBACCO DOESNT USE WI 30 MIN WAKEUP [place] [facility] [place] [facility] Oct 29, 2020 10:00 AM VA-TOBACCO USE 30 YEARS OR MORE [facility] [place] [facility] Oct 29, 2020 10:00 AM VA-TOBACCO USE ADVICE [facility] [place] [facility] Oct 29, 2020 10:00 AM VA-TOBACCO USE CULTURED [employer] MA[employer] YES [facility] [place] [facility] Oct 29, 2020 10:00 AM VA-TOBACCO USE MED NOTIFY PROVIDER [facility] [place] [facility] Oct 29, 2020 10:00 AM VA-TOBACCO USER EVERY DAY [facility] [place] [facility] Oct 10, 2019 11:00 AM VA-TOBACCO FORMER USER [facility] [place] [facility] Oct 10, 2019 11:00 AM VA-TOBACCO QUIT < 1 YEAR [facility] [place] [facility] Oct 26, 2018 07:55 AM VA-TOBACCO USE > 15 LESS THAN 30 YEARS [facility] [place] [facility] Oct 26, 2018 07:55 AM VA-TOBACCO USE ADVICE [facility] [place] [facility] Oct 26, 2018 07:55 AM VA-TOBACCO USE CULTURED [employer] MAK[employer] NO [place] [facility] [place] [facility] Oct 26, 2018 07:55 AM VA-TOBACCO USE MED NO [facility] [place] [facility] Oct 26, 2018 07:55 AM VA-TOBACCO USE WI 30 MIN OF WAKEUP [facility] [place] [facility] Oct 26, 2018 07:55 AM VA-TOBACCO USER EVERY DAY [place] [facility] [place] [facility] Aug 04, 2017 08:53 AM CURRENT SMOKER [facility] [place] [facility] Aug 04, 2017 08:53 AM V1-PT DECLINES REF TO TOBACCO CESS PRGM [facility] [place] [facility] Aug 04, 2017 08:53 AM V1-PT DECLINES TOBACCO CESSATION MEDS [place] [facility] [place] [facility] Aug 04, 2017 08:53 AM V1-PT THINKING ABOUT QUIT TOBACCO USE [facility] [place] [facility] Jan 31, 2017 09:51 AM QUIT TOBACCO USE IN PAST YEAR 31 days [facility] [place] [facility] Jan 26, 2016 08:36 AM CURRENT SMOKER [facility] [place] [facility] Jan 26, 2016 08:36 AM V1-PT DECLINES REF TO TOBACCO CESS PRGM [facility] [place] [facility] Jan 26, 2016 08:36 AM V1-PT DECLINES TOBACCO CESSATION MEDS [facility] [place] [facility] Jan 26, 2016 08:36 AM V1-PT THINKING ABOUT QUIT TOBACCO USE [facility] [place] [facility] Feb 20, 2015 10:25 AM QUIT TOBACCO USE IN PAST YEAR [facility] [place] [facility] June 17, 2014 07:37 AM CURRENT SMOKER Reports being an off and on smoker -cigarettes [facility] [place] [facility] June 17, 2014 07:37 AM V1-PT DECLINES REF TO TOBACCO CESS PRGM [facility] [place] [facility] June 17, 2014 07:37 AM V1-PT DECLINES TOBACCO CESSATION MEDS [facility] [place] [facility] June 17, 2014 07:37 AM V1-PT THINKING ABOUT QUIT TOBACCO USE [facility] [place] [facility] Sep 14, 2011 09:51 AM CURRENT SMOKER less than a pack a day [facility] [place] [facility] Sep 14, 2011 09:51 AM V1-PT DECLINES REF TO TOBACCO CESS PRGM [facility] [place] [facility] Sep 14, 2011 09:51 AM V1-PT DECLINES TOBACCO CESSATION MEDS [facility] [place] [facility] Sep 14, 2011 09:51 AM V1-PT THINKING ABOUT QUIT TOBACCO USE [facility] [place] [facility] Mar 09, 2010 09:32 AM CURRENT SMOKER 1 ppd [facility] [place] [facility] Mar 09, 2010 09:32 AM V1-PT DECLINES TOBACCO CESSATION MEDS [facility] [place] [facility] Mar 09, 2010 09:32 AM V1-PT REF TO NON-VA TOBACCO CESS PRGM [place] [facility] [place] [facility] Mar 09, 2010 09:32 AM V1-PT THINKING ABOUT QUIT TOBACCO USE [facility] [place] [facility] Sep 29, 2009 02:07 PM V1-PT DECLINES REF TO TOBACCO CESS PRGM [facility] [place] [facility] Sep 29, 2009 02:07 PM V1-PT DECLINES TOBACCO CESSATION MEDS [facility] [place] [facility] Sep 29, 2009 02:07 PM V1-PT NOT INTERESTED IN QUIT TOBACCO USE [facility] [place] [facility] Jan 29, 2009 11:00 AM CURRENT SMOKER 1 ppd [facility] [place] [facility] Jan 29, 2009 11:00 AM V1-PT DECLINES TOBACCO CESSATION MEDS [facility] [place] [facility] Jan 29, 2009 11:00 AM V1-PT READY TO QUIT TOBACCO USE [facility] [place] [facility] Mar 17, 2005 08:36 AM CURRENT SMOKER [facility] [place] [facility] Advance Directives: All historical and current Section Date Range: From patient's date of to the date document was created. This section includes ALL of a patient's completed or amended [place] Advance and Rescinded Directives. The entries below indicate that a directive exists for the patient, but an actual copy is not included with this document. The data comes from all [place] facilities. Date Advance Directives Provider Source Nov 11, 2023 ADVANCE DIRECTIVE ALVERTOJACOB J [place] [facility] Encounter Notes: All associated encounter notes This section contains the clinical notes associated to the Encounter. Date/Time Encounter Note(s) Provider Source Mar 20, 2024 11:55 AM OPTOMETRY CONSULT: LOCAL TITLE: CONSULT REPORT/OPTOMETRY OCT STANDARD TITLE: OPTOMETRY CONSULT DATE OF NOTE: MAR 20, 2024@11:55 ENTRY DATE: MAR 20, 2024@11:55:34 AUTHOR: IVANA HOLT COSIGNER: JESSA CAMARA URGENCY: STATUS: COMPLETED CONSULT [...] HOLT OPTOMETRY STUDENT Signed: 03/20/2024 12:10 /natalie/ Jessa Camara OD CHIEF OF OPTOMETRY Cosigned: 03/21/2024 [...] for repeat imaging in 12 months. /natalie/ Jessa Camara OD CHIEF OF OPTOMETRY Signed: 03/21/2024 07:19 IVANA HOLT [facility]
--- OUTSIDE RECORDS SUMMARY | 2024-06-15 06:56 | XMS_ITS | Continuity of Care Document ---
Author Name [facility] Organization [facility] Care Team Providers Care Data Capture Clerk Name Role Phone [facility] Unavailable Unavailable Problems Combined list of problems from Department of Defense and Veterans Affairs facilities. It does not include entries that were removed or entered in error. Problem Status Onset Date Problem Type Date of Resolution Comments Source Hemochromatosis (SNOMED CT 889952386) Active 02/14/18 96 Condition Nov 11, 2023 Entered By: PRINCESS RAMON Comment: keep HCT <16, ferritin <200. phlebotomy at [facility] changed to every other month, 450cc [facility] Benign prostatic hyperplasia Active Condition May 10, 2024 Entered By: PRINCESS RAMON Comment: caren Collins urology- plan for TURP [facility] Centriacinar emphysema Active Condition May 10, 2024 Entered By: PRINCESS RAMON Comment: caren collins pulmonary [facility] Erectile dysfunction (SNOMED CT 632764817) Active Condition [facility] Hemochromatosis Active Condition [facility] Impaired fasting glucose Active Condition [facility] Nicotine dependence (SNOMED CT 14786915) Active Condition [facility] Obesity Active Condition [facility] 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 [facility] Encounter for Vocational Therapy (ICD-9-CM V57.22) Inactive Condition 03/09/2010 [facility] Lack of Housing Inactive Condition 03/09/2010 [facility] Microscopic Hematuria Inactive Condition 04/01/2010 [facility] Diagnosis: ICD-10-CM Z12.2 Encntr screen for malignant neoplasm of respiratory organs Active Diagnosis [facility] Diagnosis: ICD-10-CM J43.2 Centrilobular [...] [facility] Diagnosis: ICD-10-CM R91.1 Solitary pulmonary nodule Active Diagnosis [facility] Diagnosis: ICD-10-CM H02.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 Meibomian gland dysfnct left eye, upper and lower eyelids Active Diagnosis [facility] Diagnosis: ICD-10-CM R91.8 Other nonspecific abnormal finding of lung field Active Diagnosis [facility] Medications Combined list of outpatient medications [...] G RESPIR ATORY (INHAL ATION) ACTIVE 11/25/2024 [id number] 5 FURCOLO,T PATY 2023 3 [facility] ALBUTEROL 90MCG/ACTUA T (CFC-F) INHL,ORAL,8 .5GM DOSE COUNTER INHALE 2 PUFFS BY MOUTH FOUR TIMES DAILY NEEDED FOR BREATHIN G RESPIR ATORY (INHAL ATION) DISCONT INUED 08/16/2024 [id number] 4 FURCOLO,T PATY 2023 1 [facility] ALBUTEROL 90MCG/ACTUA T (CFC-F) INHL,ORAL,8 .5GM DOSE COUNTER INHALE 2 PUFFS BY MOUTH FOUR TIMES DAILY NEEDED FOR BREATHIN G RESPIR ATORY (INHAL ATION) DISCONT INUED 07/06/2023 [id number] [facility] 2022 1 [facility] FINASTERIDE 5MG TAB TAKE ONE TABLET BY MOUTH ONCE DAILY FOR PROSTATE ORAL SUSPEND ED 02/13/2025 [id number] 5 FURCOLO,T PATY 2023 90 [facility] FINASTERIDE 5MG TAB TAKE ONE TABLET BY MOUTH ONCE DAILY FOR PROSTATE ORAL DISCONT INUED 01/13/2024 [id number] 4 [facility]UVENALMED JAWED 2022 90 [facility] FLUTICASONE 250MCG/SALM ETEROL 50MCG INHL,ORAL,D ISKUS,60 INHALE 1 PUFF BY MOUTH TWICE DAILY FOR BREATHIN G - RINSE MOUTH AFTER USE RESPIR ATORY (INHAL ATION) ACTIVE 05/11/2025 [id number] 5 FURCOLO,T PATY 2024 3 [facility] FLUTICASONE 250MCG/SALM ETEROL 50MCG INHL,ORAL,D ISKUS,60 INHALE 1 PUFF BY MOUTH TWICE DAILY FOR BREATHIN G - RINSE MOUTH AFTER USE RESPIR ATORY (INHAL ATION) DISCONT INUED 08/16/2024 [id number] 5 FURCOLO,T PATY 2023 1 [facility] FLUTICASONE 250MCG/SALM ETEROL 50MCG INHL,ORAL,D ISKUS,60 INHALE 1 PUFF BY MOUTH TWICE DAILY FOR BREATHIN G - RINSE MOUTH AFTER USE RESPIR ATORY (INHAL ATION) DISCONT INUED 01/13/2024 [id number] 4 [facility] JAWED 2022 1 [facility] LIDOCAINE 5% PATCH APPLY 1 PATCH TOPICALL Y ONCE DAILY FOR NERVE PAIN (LEAVE PATCH ON FOR 12 HOURS, THEN REMOVE PATCH) TOPICA L ACTIVE 11/11/2024 [id number] FURCOLO,T PATY 2023 90 [facility] TAMSULOSIN HCL 0.4MG CAP TAKE ONE CAPSULE BY MOUTH AT BEDTIME ORAL SUSPEND ED 08/16/2024 [id number] 5 FURCOLO,T PATY 2023 90 [facility] TAMSULOSIN HCL 0.4MG CAP TAKE ONE CAPSULE BY MOUTH AT BEDTIME ORAL DISCONT INUED 01/13/2024 [id number] 4 DK CRU[facility] JAWED 2022 90 [facility] THEOPHYLLIN E 400MG 24HR TAB,SA TAKE ONE TABLET BY MOUTH ONCE DAILY ORAL DISCONT INUED BY PROVIDE R 04/06/2024 [id number] LAMONT,AN BARBARA 2023 30 [facility] TIOTROPIUM 2.5MCG/ACTU AT INHL,ORAL,6 0D,4GM INHALE 2 PUFFS BY MOUTH ONCE DAILY RESPIR ATORY (INHAL ATION) ACTIVE 05/11/2025 [id number] 5 FURCOLO,T PATY 2024 3 [facility] TIOTROPIUM 2.5MCG/ACTU AT INHL,ORAL,6 0D,4GM INHALE 2 PUFFS BY MOUTH ONCE DAILY RESPIR ATORY (INHAL ATION) DISCONT INUED 08/16/2024 [id number] 5 FURCOLO,T PATY 2023 1 [facility] TIOTROPIUM 2.5MCG/ACTU AT INHL,ORAL,6 0D,4GM INHALE 2 PUFFS BY MOUTH ONCE DAILY RESPIR ATORY (INHAL ATION) DISCONT INUED 01/13/2024 [id number] 4 DK CRUZ JAWED 2022 1 [facility] [place] [facility] Allergies, Adverse Reactions, Alerts Combined list of allergies from Department of Defense and Veterans Affairs facilities. It does not include entries that were removed or entered in error. Substance Category Reaction Severity Reaction type Status Date Reported Comments Source CHANTIX Propensity to adverse reactions to drug (finding) Anxiety active 0 [facility] [place] [facility] Immunizations Combined list of available immunizations from the Department of Defense and Veterans Affairs facilities. Immunization Series Date Given Administered By Site Reaction Lot Number CVX Code Drug Secondary Connector Armature Status Comments Source INFLUENZA, HIGH-DOSE, QUADRIVALENT 2022 PELON ESPINOSA LEFT DELTO ID [id number] A 197 complet ed Completed Series, ADMINISTE [facility] AT [facility], [facility] [place] [facility] INFLUENZA VACCINE, QUADRIVALENT, ADJUVANTED 2021 205 complet ed [facility] [place] ZOSTER RECOMBINANT 2 2021 187 complet ed [facility] COVID-19 (MODERNA), MRNA, LNP-S, PF, 100 MCG OR 50 MCG DOSE 3 2020 207 complet ed MOD; [id number]; 2 [facility] [place] [facility] INFLUENZA VACCINE, QUADRIVALENT, ADJUVANTED 2020 205 complet ed [facility] [place] [facility] PNEUMOCOCCAL POLYSACCHARID E PPV23 2020 33 complet ed [facility] TDAP 2020 115 complet ed [facility] ZOSTER RECOMBINANT 1 2020 187 complet ed [facility] COVID-19 (MODERNA), MRNA, LNP-S, PF, 100 MCG/0.5 ML DOSE 2 2020 207 complet ed MOD; [id number]; 1 [facility] COVID-19 (MODERNA), MRNA, LNP-S, PF, 100 MCG/0.5 ML DOSE 1 2020 207 complet ed MOD; [id number]; 1 [facility] [...] Reference Range Date Interpretation Specimen Comments Source HEMOGLOBI N A1C PANEL HEMOGLOBIN A1C/HEMOGLO BIN.TOTAL IN BLOOD BY HPLC 6.0 4.0 - 5.6 05/04 H Specimen Type: BLOOD Comment: Values obtained from A1C measurement s can vary. For atypical A1C assays, a reported value of 7.0 could actually be between 6.72 and 7.28 if measured by a reference method. A reported value of 9.0 could actually be between 8.73 and 9.27. Ref: http://www. ngsp.org/[place] Pdata.asp Ordering Provider: RADHA RAMON Report Released Date/Time: May 01, 2024 08:17 AM Reporting Lab: [facility] [place] [facility] [address] [address] Performing Lab: [facility] [place] [facility] [address] [address] [facility] [facility] FERRITIN FERRITIN [MASS/VOLUM E] IN SERUM OR PLASMA 92 ng/mL 20 - 300 05/04 Specimen Type: SERUM No comment entered. Ordering Provider: RADHA RAMON Report Released Date/Time: May 01, 2024 08:17 AM Reporting Lab: [facility] [place] [facility] [address] [facility] [address] Performing Lab: [facility] [place] [facility] [address] [address] [facility] [place] [facility] LIVER FUNCTION PROTEIN [MASS/VOLUM E] IN SERUM OR PLASMA 6.7 g/dL 6.0 - 8.3 05/04 Specimen Type: SERUM No comment entered. Ordering Provider: RADHA RAMON Report Released Date/Time: May 01, 2024 08:17 AM Reporting Lab: [facility] [place] [facility] [address] [facility] [address] Performing Lab: [facility] [place] [facility] [address] [address] [facility] [place] [facility] LIVER FUNCTION ALBUMIN [MASS/VOLUM E] IN SERUM OR PLASMA 4.0 g/dL 3.5 - 5.0 05/04 Specimen Type: SERUM No comment entered. Ordering Provider: RADHA RAMON Report Released Date/Time: May 01, 2024 08:17 AM Reporting Lab: [facility] [place] [facility] [address] [facility] [address] Performing Lab: [facility] [place] [facility] [address] [address] [facility] [place] [facility] LIVER FUNCTION ALKALINE PHOSPHATASE [ENZYMATIC ACTIVITY/VO LUME] IN SERUM OR PLASMA 81 U/L 40 - 150 05/04 Specimen Type: SERUM No comment entered. Ordering Provider: RADHA RAMON Report Released Date/Time: May 01, 2024 08:17 AM Reporting Lab: [facility] [place] [facility] [address] [facility] [address] Performing Lab: [facility] [place] [facility] [address] [address] [facility] [place] [facility] LIVER FUNCTION ASPARTATE AMINOTRANSF ERASE [ENZYMATIC ACTIVITY/VO LUME] IN SERUM OR PLASMA 18 U/L 5 - 34 05/04 Specimen Type: SERUM No comment entered. Ordering Provider: RADHA RAMON Report Released Date/Time: May 01, 2024 08:17 AM Reporting Lab: [facility] [address] [facility] [address] Performing Lab: [facility] [address] [facility] [address] [facility] [place] [facility] LIVER FUNCTION ALANINE AMINOTRANSF ERASE [ENZYMATIC ACTIVITY/VO LUME] IN SERUM OR PLASMA 32 U/L 05/04 Specimen Type: SERUM No comment entered. Ordering Provider: RADHA RAMON Report Released Date/Time: May 01, 2024 08:17 AM Reporting Lab: [facility] [address] [facility] [address] Performing Lab: [facility] [place] [facility] [address] [address] [facility] [place] [facility] LIVER FUNCTION BILIRUBIN.T OTAL [MASS/VOLUM E] IN SERUM OR PLASMA 0.7 mg/dL 0.2 - 1.2 05/04 Specimen Type: SERUM No comment entered. Ordering Provider: RADHA RAMON Report Released Date/Time: May 01, 2024 08:17 AM Reporting Lab: [facility] [address] [facility] [address] Performing Lab: [facility] [place] [facility] [address] [address] [facility] [place] [facility] CBC LEUKOCYTES [#/VOLUME] IN BLOOD BY AUTOMATED COUNT 7.46 10*3/u L 4.50 - 11.00 05/04 Specimen Type: BLOOD No comment entered. Ordering Provider: RADHA RAMON Report Released Date/Time: May 01, 2024 08:17 AM Reporting Lab: [facility] [address] [facility] [address] Performing Lab: [facility] [place] [facility] [address] [address] [facility] [place] [facility] CBC ERYTHROCYTE S [#/VOLUME] IN BLOOD BY AUTOMATED COUNT 4.82 10*6/u L 4.23 - 5.66 05/04 Specimen Type: BLOOD No comment entered. Ordering Provider: RADHA RAMON Report Released Date/Time: May 01, 2024 08:17 AM Reporting Lab: [facility] [address] [facility] [address] Performing Lab: [facility] [place] [facility] [address] [address] [facility] [place] [facility] CBC HEMOGLOBIN [MASS/VOLUM E] IN BLOOD 15.6 g/dL 12.8 - 17 05/04 Specimen Type: BLOOD No comment entered. Ordering Provider: RADHA RAMON Report Released Date/Time: May 01, 2024 08:17 AM Reporting Lab: [facility] [place] [facility] [address] [address] Performing Lab: [facility] [place] [facility] [address] [address] [facility] [place] [facility] CBC HEMATOCRIT [VOLUME FRACTION] OF BLOOD BY AUTOMATED COUNT 45.4 39.2 - 50.4 05/04 Specimen Type: BLOOD No comment entered. Ordering Provider: RADHA RAMON Report Released Date/Time: May 01, 2024 08:17 AM Reporting Lab: [facility] [place] [facility] [address] [facility] [address] Performing Lab: [facility] [place] [facility] [address] [facility] [address] [facility] [place] [facility] CBC MCV [ENTITIC VOLUME] BY AUTOMATED COUNT 94.2 fL 82 - 99 05/04 Specimen Type: BLOOD No comment entered. Ordering Provider: RADHA RAMON Report Released Date/Time: May 01, 2024 08:17 AM Reporting Lab: [facility] [place] [facility] [address] [facility] [address] Performing Lab: [facility] [place] [facility] [address] [facility] [address] [facility] [place] [facility] CBC MCHC [MASS/VOLUM E] BY AUTOMATED COUNT 34.4 g/dL 30.8 - 35.1 05/04 Specimen Type: BLOOD No comment entered. Ordering Provider: RADHA RAMON Report Released Date/Time: May 01, 2024 08:17 AM Reporting Lab: [facility] [place] [facility] [address] [facility] [address] Performing Lab: [facility] [place] [facility] [address] [facility] [address] [facility] [place] [facility] CBC PLATELETS [#/VOLUME] IN BLOOD BY AUTOMATED COUNT 158 10*3/u L 140 - 360 05/04 Specimen Type: BLOOD No comment entered. Ordering Provider: RADHA RAMON Report Released Date/Time: May 01, 2024 08:17 AM Reporting Lab: [facility] [place] [facility] [address] [facility] [address] Performing Lab: [facility] [place] [address] [address] [facility] [place] [facility] CBC ERYTHROCYTE DISTRIBUTIO N WIDTH [RATIO] BY AUTOMATED COUNT 12.4 12.0 - 16.0 05/04 Specimen Type: BLOOD No comment entered. Ordering Provider: RADHA RAMON Report Released Date/Time: May 01, 2024 08:17 AM Reporting Lab: [facility] [place] [facility] [address] [facility] [address] Performing Lab: [facility] [place] [facility] [address] [facility] [address] [facility] [place] [facility] CBC MCH [ENTITIC MASS] BY AUTOMATED COUNT 32.4 pg 26.2 - 32.6 05/04 Specimen Type: BLOOD No comment entered. Ordering Provider: RADHA RAMON Report Released Date/Time: May 01, 2024 08:17 AM Reporting Lab: [facility] [place] [facility] [address] [facility] [address] Performing Lab: [facility] [place] [facility] [address] [facility] [address] [facility] [place] [facility] LIPID PANEL FASTING CHOLESTEROL [MASS/VOLUM E] IN SERUM OR PLASMA 162 mg/dL 05/04 Specimen Type: SERUM No comment entered. Ordering Provider: RADHA RAMON Report Released Date/Time: May 01, 2024 08:17 AM Reporting Lab: [facility] [place] [place] [facility] [address] [facility] [address] Performing Lab: [facility]ITALRL TRN [facility] [address] [facility] [address] [facility]ITALRNOR[facility]ERN [facility]USE [facility] LIPID PANEL FASTING TRIGLYCERID E [MASS/VOLUM E] IN SERUM OR PLASMA 119 mg/dL 0 - 150 05/04 Specimen Type: SERUM No comment entered. Ordering Provider: RADHA RAMON Report Released Date/Time: May 01, 2024 08:17 AM Reporting Lab: [facility]ITALRL TRN [facility]PITALUSE[address] [address] Performing Lab: [facility] HOSPITALRTHOMAS HOSPITALTRN [address] [address] [facility] LIPID PANEL FASTING CHOLESTEROL IN LDL [MASS/VOLUM E] IN SERUM OR PLASMA BY CALCULATION 97 mg/dL 0 - 129 05/04 Specimen Type: SERUM No comment entered. Ordering Provider: RADHA RAMON Report Released Date/Time: May 01, 2024 08:17 AM Reporting Lab: [facility] HOS[facility]ITALRL TRN [facility]ITALUSE[address] [address] Performing Lab: [facility]OSPITALRL TRN [facility]ITALUSE[address] [address] [facility]PITALRNORTH ALABAMA MEDICAL [facility]ERN [facility] LIPID PANEL FASTING CHOLESTEROL .TOTAL/CHOL ESTEROL IN HDL [MASS RATIO] IN SERUM OR PLASMA 4.0 05/04 Specimen Type: SERUM No comment entered. Ordering Provider: RADHA RAMON Report Released Date/Time: May 01, 2024 08:17 AM Reporting Lab: [facility] HOSPITALRL TRN [facility]OSPITALUSEHELEN [facility] [address] [facility] [address] Performing Lab: [facility] HOSPITALRL TRN [facility]PITALUSE[address] [address] [facility]ITALRNORTH ALABAMA MED[facility]ENTERN [facility]ITALUSE [facility] LIPID PANEL FASTING CHOLESTEROL IN HDL [MASS/VOLUM E] IN SERUM OR PLASMA 41 mg/dL 40 - 60 05/04 Specimen Type: SERUM No comment entered. Ordering Provider: RADHA RAMON Report Released Date/Time: May 01, 2024 08:17 AM Reporting Lab: [facility] [place] [facility] [address] [facility] [address] Performing Lab: [facility]OSPITALUSEHELEN [facility] [address] [facility] [address] [facility]OSPITALRL WSTRN MASSUSE [facility] BASIC METABOLIC PANEL (fasting) UREA NITROGEN [MASS/VOLUM E] IN SERUM OR PLASMA 18 mg/dL 7 - 25 05/04 Specimen Type: SERUM No comment entered. Ordering Provider: RADHA RAMON Report Released Date/Time: May 01, 2024 08:17 AM Reporting Lab: [facility]OSPITALUSEHELEN [facility] [address] [facility] [address] Performing Lab: [facility] [place] [facility] [address] [facility] [address] [facility]OSPITALRL WSTRN [facility] HOSPITALUSE [facility] BASIC METABOLIC PANEL (fasting) GLUCOSE [MASS/VOLUM E] IN SERUM OR PLASMA 123 mg/dL 65 - 100 05/04 H Specimen Type: SERUM No comment entered. Ordering Provider: RADHA RAMON Report Released Date/Time: May 01, 2024 08:17 AM Reporting Lab: [facility] HOSPITALRL [place] [facility] [address] [facility] [address] Performing Lab: [facility] [place] [facility] [address] [facility] [address] [facility] [place] [facility] BASIC METABOLIC PANEL (fasting) SODIUM [MOLES/VOLU ME] IN SERUM OR PLASMA 139 mmol/L 135 - 145 05/04 Specimen Type: SERUM No comment entered. Ordering Provider: RADHA RAMON Report Released Date/Time: May 01, 2024 08:17 AM Reporting Lab: [facility] [place] [facility] [address] [facility] [address] Performing Lab: [facility] [place] [facility] [address] [facility] [address] [facility] [place] [facility] BASIC METABOLIC PANEL (fasting) POTASSIUM [MOLES/VOLU ME] IN SERUM OR PLASMA 4.2 mmol/L 3.5 - 5.0 05/04 Specimen Type: SERUM No comment entered. Ordering Provider: RADHA RAMON Report Released Date/Time: May 01, 2024 08:17 AM Reporting Lab: [facility] HOSPITALRTHOMAS HOSPITALTRN [facility]ITALUSE[address] [address] Performing Lab: [facility] HOSPITALR WSTRN [facility]ITALUSE[address] [address] [facility]ITALN [facility] BASIC METABOLIC PANEL (fasting) CHLORIDE [MOLES/VOLU ME] IN SERUM OR PLASMA 106 mmol/L 100 - 110 05/04 Specimen Type: SERUM No comment entered. Ordering Provider: RADHA RAMON Report Released Date/Time: May 01, 2024 08:17 AM Reporting Lab: [facility] HOSPITALRTHOMAS HOSPITALTRN [facility]ITALUSE[address] [address] Performing Lab: [facility] HOSPITALRL WSTRN [facility]ITALUSE[address] [address] [facility]ITALN [facility] BASIC METABOLIC PANEL (fasting) CARBON DIOXIDE, TOTAL [MOLES/VOLU ME] IN SERUM OR PLASMA 26 meq/L 20 - 30 05/04 Specimen Type: SERUM No comment entered. Ordering Provider: RADHA RAMON Report Released Date/Time: May 01, 2024 08:17 AM Reporting Lab: [facility] HOSPITALRTHOMAS HOSPITALTRN MASSUSE[address] [address] Performing Lab: [facility] HOSPITALRL WSTRN [facility]ITALUSE[address] [address] [facility]PITALRNORTH ALABAMA MEDICAL CENTERN [facility]LEY HOSPITALUSE [facility] BASIC METABOLIC PANEL (fasting) CALCIUM [MASS/VOLUM E] IN SERUM OR PLASMA 8.8 mg/dL 8.5 - 10.2 05/04 Specimen Type: SERUM No comment entered. Ordering Provider: RADHA RAMON Report Released Date/Time: May 01, 2024 08:17 AM Reporting Lab: [facility] HOSPITALRTHOMAS HOSPITALTRN [facility]ITALUSE[address] [address] Performing Lab: [facility] HOSPITALRL [place]N [place] [facility] [address] [address] [facility]OSPITALRNORTH ALABAMA MEDICAL CENTERN [facility]ITALUSE [facility] BASIC METABOLIC PANEL (fasting) CREATININE [MASS/VOLUM E] IN SERUM OR PLASMA 0.87 mg/dL 0.50 - 1.40 05/04 Specimen Type: SERUM No comment entered. Ordering Provider: RADHA RAMON Report Released Date/Time: May 01, 2024 08:17 AM Reporting Lab: [facility] HOSPITALRL [place]N [place] [facility] [address] [address] Performing Lab: [facility] HOSPITALRL TRN [facility]ITALUSEHE[facility] [address] [address] [facility]N [facility]ITALUSE [facility] BASIC METABOLIC PANEL (fasting) GLOMERULAR FILTRATION RATE/1.73 SQ M.PREDICTED [VOLUME RATE/AREA] IN SERUM, PLASMA OR BLOOD BY CREATININE- BASED FORMULA (CKD-EPI 2020) 89 mL/min 60 05/04 Specimen Type: SERUM No comment entered. Ordering Provider: RADHA RAMON Report Released Date/Time: May 01, 2024 08:17 AM Reporting Lab: [facility] HOSPITALRTHOMAS HOSPITALTRN [facility]ITALUSE[facility] [address] [facility] [address] Performing Lab: [facility] HOSPITALRL TRN [facility]ITALUSE[facility] [address] [facility] [address] [facility] FERRITIN FERRITIN [MASS/VOLUM E] IN SERUM OR PLASMA 144 ng/mL 20 - 300 11/02 Specimen Type: SERUM No comment entered. Ordering Provider: RADHA RAMON Report Released Date/Time: Nov 01, 2023 12:47 PM Reporting Lab: [facility] HOSPITALRTHOMAS HOSPITALTRN [facility]ITALUSE[facility] [address] [facility] [address] Performing Lab: [facility] HOSPITALRTHOMAS HOSPITALTRN [facility]ITALUSE[facility] [address] [facility] [address] [facility] IRON & TIBC PANEL IRON BINDING CAPACITY [MASS/VOLUM E] IN SERUM OR PLASMA 268 ug/dL 204 - 475 11/02 Specimen Type: SERUM No comment entered. Ordering Provider: RADHA RAMON Report Released Date/Time: Nov 01, 2023 12:47 PM Reporting Lab: [facility] [place] [facility] [address] [address] Performing Lab: [facility] [place] [facility] [address] [address] [facility] IRON & TIBC PANEL IRON [MASS/VOLUM E] IN SERUM OR PLASMA 195 ug/dL 40 - 160 11/02 H Specimen Type: SERUM No comment entered. Ordering Provider: RADHA RAMON Report Released Date/Time: Nov 01, 2023 12:47 PM Reporting Lab: [facility] [place] [facility] [address] [address] Performing Lab: [facility] [place] [facility] [address] [address] [facility] [place] IRON & TIBC PANEL IRON/IRON BINDING CAPACITY.TO KEVIN [MASS RATIO] IN SERUM OR PLASMA 72.8 20.0 - 50.0 11/02 H Specimen Type: SERUM No comment entered. Ordering Provider: RADHA RAMON Report Released Date/Time: Nov 01, 2023 12:47 PM Reporting Lab: [facility] [place] [facility] [address] [address] Performing Lab: [facility] [place] [facility] [address] [address] [facility] IRON & TIBC PANEL TRANSFERRIN [MASS/VOLUM E] IN SERUM OR PLASMA 203 mg/dL 200 - 360 11/02 Specimen Type: SERUM No comment entered. Ordering Provider: RADHA RAMON Report Released Date/Time: Nov 01, 2023 12:47 PM Reporting Lab: [facility] [place] [facility] [address] [address] Performing Lab: [facility] [place] [facility] [address] [address] [facility] CBC LEUKOCYTES [#/VOLUME] IN BLOOD BY AUTOMATED COUNT 7.31 10*3/u L 4.50 - 11.00 11/02 Specimen Type: BLOOD No comment entered. Ordering Provider: RADHA RAMON Report Released Date/Time: Nov 01, 2023 12:47 PM Reporting Lab: [facility] [place] [facility] [address] [facility] [address] Performing Lab: [facility] [address] [address] [facility] CBC ERYTHROCYTE S [#/VOLUME] IN BLOOD BY AUTOMATED COUNT 5.14 10*6/u L 4.23 - 5.66 11/02 Specimen Type: BLOOD No comment entered. Ordering Provider: RADHA RAMON Report Released Date/Time: Nov 01, 2023 12:47 PM Reporting Lab: [facility] [place] [facility] [address] [address] Performing Lab: [facility] [place] [facility] [address] [address] [facility] [place] CBC HEMOGLOBIN [MASS/VOLUM E] IN BLOOD 16.5 g/dL 12.8 - 17 11/02 Specimen Type: BLOOD No comment entered. Ordering Provider: RADHA RAMON Report Released Date/Time: Nov 01, 2023 12:47 PM Reporting Lab: [facility] [place] [facility] [address] [facility] [address] Performing Lab: [facility] [place] [facility] [address] [address] [facility] [place] CBC HEMATOCRIT [VOLUME FRACTION] OF BLOOD BY AUTOMATED COUNT 49.0 39.2 - 50.4 11/02 Specimen Type: BLOOD No comment entered. Ordering Provider: RADHA RAMON Report Released Date/Time: Nov 01, 2023 12:47 PM Reporting Lab: [facility] [place] [facility] [address] [address] Performing Lab: [facility] [place] [facility] [address] [address] [facility] [place] CBC MCV [ENTITIC VOLUME] BY AUTOMATED COUNT 95.3 fL 82 - 99 11/02 Specimen Type: BLOOD No comment entered. Ordering Provider: RADHA RAMON Report Released Date/Time: Nov 01, 2023 12:47 PM Reporting Lab: [facility] [address] [facility] [address] Performing Lab: [facility] [address] [address] [facility] [place] CBC MCHC [MASS/VOLUM E] BY AUTOMATED COUNT 33.7 g/dL 30.8 - 35.1 11/02 Specimen Type: BLOOD No comment entered. Ordering Provider: RADHA RAMON Report Released Date/Time: Nov 01, 2023 12:47 PM Reporting Lab: [facility] [place] [facility] [address] [facility] [address] Performing Lab: [facility] [place] [facility] [address] [address] [facility] [place] CBC PLATELETS [#/VOLUME] IN BLOOD BY AUTOMATED COUNT 182 10*3/u L 140 - 360 11/02 Specimen Type: BLOOD No comment entered. Ordering Provider: RADHA RAMON Report Released Date/Time: Nov 01, 2023 12:47 PM Reporting Lab: [facility] [place] [facility] [address] [facility] [address] Performing Lab: [facility] [place] [facility] [address] [facility] [address] [facility] [place] CBC ERYTHROCYTE DISTRIBUTIO N WIDTH [RATIO] BY AUTOMATED COUNT 12.3 12.0 - 16.0 11/02 Specimen Type: BLOOD No comment entered. Ordering Provider: RADHA RAMON Report Released Date/Time: Nov 01, 2023 12:47 PM Reporting Lab: [facility] [place] [facility] [address] [facility] [address] Performing Lab: [facility] [place] [facility] [address] [address] [facility] [place] CBC MCH [ENTITIC MASS] BY AUTOMATED COUNT 32.1 pg 26.2 - 32.6 11/02 Specimen Type: BLOOD No comment entered. Ordering Provider: RADHA RAMON Report Released Date/Time: Nov 01, 2023 12:47 PM Reporting Lab: [facility] [place] [facility] [address] [facility] [address] Performing Lab: [facility] [place] [facility] [address] [facility] [address] [facility] LIVER FUNCTION PROTEIN [MASS/VOLUM E] IN SERUM OR PLASMA 6.4 g/dL 6.0 - 8.3 11/02 Specimen Type: SERUM No comment entered. Ordering Provider: RADHA RAMON Report Released Date/Time: Nov 01, 2023 12:47 PM Reporting Lab: [facility] [place] [facility] [address] [facility] [address] Performing Lab: [facility] [place] [address] [address] [facility] LIVER FUNCTION ALBUMIN [MASS/VOLUM E] IN SERUM OR PLASMA 4.1 g/dL 3.5 - 5.0 11/02 Specimen Type: SERUM No comment entered. Ordering Provider: RADHA RAMON Report Released Date/Time: Nov 01, 2023 12:47 PM Reporting Lab: [facility] [place] [address] [address] Performing Lab: [facility] [place] [facility] [address] [facility] [address] [facility] [place] [facility] LIVER FUNCTION ALKALINE PHOSPHATASE [ENZYMATIC ACTIVITY/VO LUME] IN SERUM OR PLASMA 75 U/L 40 - 150 11/02 Specimen Type: SERUM No comment entered. Ordering Provider: RADHA RAMON Report Released Date/Time: Nov 01, 2023 12:47 PM Reporting Lab: [facility] [place] [facility] [address] [facility] [address] Performing Lab: [facility] [place] [address] [address] [facility] [place] [facility] LIVER FUNCTION ASPARTATE AMINOTRANSF ERASE [ENZYMATIC ACTIVITY/VO LUME] IN SERUM OR PLASMA 22 U/L 5 - 34 11/02 Specimen Type: SERUM No comment entered. Ordering Provider: RADHA RAMON Report Released Date/Time: Nov 01, 2023 12:47 PM Reporting Lab: [facility] [place] [facility] [address] [facility] [address] Performing Lab: [facility] [place] [facility] [address] [facility] [address] [facility] [place] [facility] LIVER FUNCTION ALANINE AMINOTRANSF ERASE [ENZYMATIC ACTIVITY/VO LUME] IN SERUM OR PLASMA 35 U/L 11/02 Specimen Type: SERUM No comment entered. Ordering Provider: RADHA RAMON Report Released Date/Time: Nov 01, 2023 12:47 PM Reporting Lab: [facility] [place] [address] [address] Performing Lab: [facility] [place] [facility] [address] [facility] [address] [facility] LIVER FUNCTION BILIRUBIN.T OTAL [MASS/VOLUM E] IN SERUM OR PLASMA 0.6 mg/dL 0.2 - 1.2 11/02 Specimen Type: SERUM No comment entered. Ordering Provider: RADHA RAMON Report Released Date/Time: Nov 01, 2023 12:47 PM Reporting Lab: [facility] [place] [address] [address] Performing Lab[facility] [place] [address] [address] [facility] [place] [facility] Vital Signs Combined list of inpatient and outpatient Vital Signs from Department of Defense and Veterans Affairs, ranging from 12 months to all on record, depending upon the facility. Vital Sign Value Date Comments Source SYSTOLIC BLOOD PRESSURE 133 05/11/19 25 10:36:03 [facility] [place] [facility] DIASTOLIC BLOOD PRESSURE 79 025 10:36:03 [facility] [place] [facility] PULSE OXIMETRY 91 05/10/2024 10:36:03 [facility] WEIGHT 261 05/10/2024 10:36:03 [facility] BMI 36 kg/m2 05/10/2024 10:36:03 [facility] PAIN 1 05/10/2024 10:36:03 [facility] TEMPERATURE 98.3 05/10/2024 10:36:03 [facility] PULSE 81 05/10/2024 10:36:03 [facility] RESPIRATION 16 05/10/2024 10:36:03 [facility] SYSTOLIC BLOOD PRESSURE 154 11/11/19 09:02:37 [facility] DIASTOLIC BLOOD PRESSURE 90 024 09:02:37 [facility] PULSE OXIMETRY 90 11/11/2023 09:02:37 [facility] WEIGHT 265 11/11/2023 09:02:37 [facility] BMI 37 kg/m2 11/11/2023 09:02:37 [facility] PAIN 0 11/11/2023 09:02:37 [facility] TEMPERATURE 98.7 11/11/2023 09:02:37 [facility] PULSE 107 11/11/2023 09:02:37 [facility] RESPIRATION 16 11/11/2023 09:02:37 [facility] Encounters Combined [...] [facility] En[facility] [id number] 01/05 [facility] OFFICE O/P EST MOD 30-39 MIN [id number] Diagnos is: ICD-10- CM J43.2 Centril obular emphyse GORDON Bee MMED JAWED 01/12 [facility] En[facility] [id number] 01/13 [facility] En[facility] [id number] 01/14 [facility] Outpatient Encounter [id number] Diagnos is: ICD-10- CM R91.8 Other nonspec ific abnorma l finding of lung field KARLA MCKAY 01/14 [facility] En[facility] [id number] 01/14 [facility] CMPTR OPHTH IMG OPTIC NERVE [id number] Diagnos is: ICD-10- CM H40.013 Open angle with borderl ine finding s, low risk, bilater al CLAUDIA CAMARA 03/01 [facility] COMPRE OPH EXAM EST PT 1/> [id number] Diagnos is: ICD-10- CM 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, upper and lower eyelids CLAUDIA CAMARA 03/01 [facility] FIT SPECTACLES MULTIFOCAL [id number] Diagnos is: ICD-10- CM Z46.0 Encount er for fit/adj st of spectac les and contact lenses CLAUDIA CAMARA 03/01 [facility] En[facility] [id number] 03/17 [facility] En[facility] [id number] 03/22 [facility] En[facility] [id number] 03/23 [facility] En[facility] [id number] 04/06 [facility] Encounter [id number] 05/11 [facility] OFFICE O/P EST MOD 30 MIN [id number] Diagnos is: ICD-10- CM J43.2 Centril obular emphyse GORDON Bee MMED JAWED 05/11 [facility] QNHP OL DIG ASSMT&MGMT 11-20 [id number] Diagnos is: ICD-10- CM R91.1 Solitar y pulmona ry nodule LUIGI GOMEZ L 05/11 [facility] En[facility] [id number] 07/25 [facility] En[facility] [id number] 07/26 [facility] En[facility] [id number] 08/14 [facility] En[facility] [id number] 08/29 [facility] Encounter [id number] 09/04 [facility] Encounter [id number] 09/28 [facility] Encounter [id number] 10/27 [facility] Encounter [id number] 10/30 [facility] Encounter [id number] 10/31 [facility] Encounter [id number] 11/06 [facility] OFFICE O/P EST HI 40 MIN [id number] 1. Diagnos is: ICD-10- CM J43.2 Centril obular emphyse ma YENNY,TI NA 11/10 [facility] En[facility] [id number] 11/10 [facility] Encounter [id number] 1[facility]11/15 [facility] [id number] [facility] Encounter [id number] 1.11/24 [facility] OFFICE O/P NEW MOD 45 MIN [id number] Diagnos is: ICD-10- CM L57.0 Actinic keratos is ALECIA ESTEBAN 11/28 [facility] En[facility] [id number] 1.12/06 [facility] Encounter [id number] 1[facility]01/03 [facility] En[facility] [id number] 01/18 [facility] En[facility] [id number] 02/12 [facility] Encounter [id number] 02/12 [facility] Encounter [id number] 02/20 [facility] Encounter [id number] 02/21 [facility] OFFICE O/P EST MOD 30 MIN [id number] Diagnos is: ICD-10- CM L71.1 Rhinoph germana CLAUDIA CAMARAE 03/20 [facility] CPTRZD OPH DX IMG ANT SGM [id number] Diagnos is: ICD-10- CM H40.013 Open angle with borderl ine finding s, low risk, bilater al CLAUDIA CAMARA 03/20 [facility] FIT SPECTACLES MULTIFOCAL [id number] Diagnos is: ICD-10- CM Z46.0 Encount er for fit/adj st of spectac les and contact lenses CLAUDIA CAMARA 03/22 [facility] En[facility] [id number] 04/11 [facility] Encounter [id number] 04/12 [facility] Encounter [id number] 04/18 [facility] Encounter [id number] [facility] Encounter [id number] [facility] OFFICE O/P EST MOD 30 MIN [id number] Diagnos is: ICD-10- CM J43.2 Centril obular emphyse ma YENNY,TI NA 05/10 [facility] [place] NQHP OL DIG ASSMT&MGMT 21+ [id number] Diagnos is: ICD-10- CM Z12.2 Encntr screen for maligna nt neoplas m of respira tory organs KRISTYN CERVANTES 05/10 [facility] [place] [facility] [facility] Outpatient Encounter [id number] 05/29 [facility] [place] Outpatient Encounter [id number] 05/29 [facility] [place] [place] [facility] Social History Combined list of available smoking, tobacco, and other social history from Department of Defense and Veterans Affairs facilities. Social History Type Response Date Comment Source Tobacco smoking status [facility]-TO[facility] NEVER USED OTHER TYPE 05/10/2024 [facility] [place] [facility] History of tobacco use [facility]-TO[facility] USE SOME DAYS CIGARETTES 05/10/2024 [facility] [place] [facility] History of tobacco use VA-TOBACCO USER EVERY DAY 01/12/2023 [facility] [place] [facility] History of tobacco use VA-TOBACCO USER EVERY DAY 10/23/2021 [facility] [place] [facility] History of tobacco use VA-TOBACCO USER EVERY DAY 10/29/2020 [facility] [place] [facility] History of tobacco use VA-TOBACCO FORMER USER 10/10/2019 [facility] [place] [facility] 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/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 [facility] [place] [facility] History of tobacco use CURRENT SMOKER 08/04/2017 [facility] [place] [facility] History of tobacco use QUIT TOBACCO USE IN PAST YEAR 01/31/2017 31 days [facility] [place] [facility] History of tobacco use CURRENT SMOKER 01/26/2016 [facility] History of tobacco use QUIT TOBACCO USE IN PAST YEAR 02/20/2015 [facility] History of tobacco use CURRENT SMOKER 06/17/2014 Reports being an off and on smoker -cigarette s [facility] History of tobacco use CURRENT SMOKER 09/14/2011 less than a pack a day [facility] History of tobacco use CURRENT SMOKER 03/09/2010 1 ppd [facility] History of tobacco use V1-PT DECLINES TOBACCO CESSATION MEDS 09/29/2009 [facility] History of tobacco use CURRENT SMOKER 01/29/2009 1 ppd [facility] History of tobacco use CURRENT SMOKER 03/17/2005 [facility] Plan of Care List of future care activities from [facility] facilities. Additional future care activities may be listed in the Assessment and Plan section. Date/Time Care Activity Care Activity Detail Facili ty 11/12/2024 AMBULATORY - MEDICINE AMBULATORY - MEDICI [facility] Advance Directives List of completed, amended, or rescinded Advance Directives on record at [facility] facilities. An actual copy of the Directive is not included. Date Advance Directive Provider Source 11/11/2023 ADVANCE DIRECTIVE JACOB [facility]
--- OUTSIDE RECORDS SUMMARY | 2024-06-15 06:56 | XMS_ITS | Encounter Summary ---
Author Name [facility] [place] [facility] [place] Address [address] [place] [address] Care Team Providers Care Magistrate Judge Name Role Phone PRINCESS RAMON Primary Care [...] Name Patient's Relationship to Policy [place] MEDICARE (WN) MEDICARE (M) PART A Jul 15, 2013 PART A [id number] BRAD BOATENG JR PATIENT MEDICARE (WNR) MEDICARE (M) PART B Jul 15, 2013 PART B [id number] BRAD BOATENG JR PATIENT MEDICARE (WNR) MEDICARE (M) PART A Jul 15, 2013 PART A [id number] BRAD BOATENG JR PATIENT MEDICARE (WNR) MEDICARE (M) PART B Jul 15, 2013 PART B [id number] BRAD BOATENG JR PATIENT Selected Encounter This section includes the information on record at [place] for the Encounter. Date/Time Encounter Type Encounter Description Reason Provider Source May 10, 2024 02:23 PM NQHP OL DIG ASSMT&MGMT 21+ PULMONARY/CHEST ICD-10-CM Z12.2 Encntr screen for malignant neoplasm of respiratory organs PHOEBE CERVANTES IHE Encounter Template Text not used by [facility] Assessments - Encounter Diagnoses This section includes the primary and secondary diagnoses documented for the Encounter. Date/Time Primary/Secondary Diagnosis Diagnosis Name Provider Source May 10, 2024 02:38 PM PRIMARY Encntr screen for malignant neoplasm of respiratory organs PHOEBE CERVANTES [facility] Cost Effective Data [facility] Lab Results: +/- 30 days of the encounter This section includes the Chemistry and Hematology Lab Results on record with [place] for the patient. Radiology Reports and Pathology Reports are provided separately, in subsequent sections. Lab Results This section contains the Chemistry/Hematology Results that were resulted 30 days before or 30 daysafter the date of the Encounter. Date/Time Source Result Type Result - Unit Interpretation Reference Range Specimen Type Comment May 04, 2024 07:35 AM [facility] HEMOGLOBIN A1C PANEL BLOOD Specimen Type: BLOOD [...] May 01, 2024 08:17 AM Reporting Lab: [facility] [address] [address] Performing Lab: [facility] PharmaceuticalsUSETS [facility] [address] [address] HEMOGLOBIN A1C 6.0 H 4.0-5.6 May 04, 2024 07:35 AM [place] Source [facility] [employer] PharmaceuticalsUSEPWRF [facility] FERRITIN SERUM Specimen Type: SERUM No comment entered. Ordering Provider: PRINCESS RAMON Report Released Date/Time: May 01, 2024 08:17 AM Reporting Lab: [facility] [employer]aceuticalsUSEPWRF [facility] [address] [address] Performing Lab: [facility] [address] [address] FERRITIN 92 ng/mL 20-300 May 04, 2024 07:35 AM [facility] LIVER FUNCTION SERUM Specimen Type: SERUM No comment entered. Ordering Provider: PRINCESS RAMON Report Released Date/Time: May 01, 2024 08:17 AM Reporting Lab: [address] [address] Performing Lab: [address] [address] PROTEIN,TOTAL 6.7 g/dL 6.0-8.3 ALBUMIN 4.0 g/dL 3.5-5.0 ALKALINE PHOSPHATASE 81 U/L 40-150 AST 18 U/L 5-34 ALT 32 U/L BILIRUBIN, TOTAL 0.7 mg/dL 0.2-1.2 May 04, 2024 07:35 AM [facility] CBC BLOOD Specimen Type: BLOOD No comment entered. Ordering Provider: PRINCESS RAMON Report Released Date/Time: May 01, 2024 08:17 AM Reporting Lab: [address] [address] Performing Lab: [address] [address] WBC 7.46 10*3/uL 4.50-11.00 RBC 4.82 10*6/uL 4.23-5.66 HGB 15.6 g/dL 12.8-17 HCT 45.4 39.2-50.4 MCV 94.2 fL 82-99 MCHC 34.4 g/dL 30.8-35.1 PLT 158 10*3/uL 140-360 RDW-CV 12.4 12.0-16.0 MCH 32.4 pg 26.2-32.6 May 04, 2024 07:35 AM [facility] LIPID PANEL FASTING SERUM Specimen Type: SERU M No comment entered. Ordering Provider: PRINCESS RAMON Report Released Date/Time: May 01, 2024 08:17 AM Reporting Lab: [address] [place] [address] Performing Lab: [facility] [address] [address] CHOLESTEROL 162 mg/dL TRIGLYCERIDE 119 mg/dL 0-150 LDL calculated 97 mg/dL 0-129 CHOL/HDL 4.0 HDL CHOLESTEROL 41 mg/dL 40-60 May 04, 2024 07:35 AM [facility] BASIC METABOLIC PANEL (fasting) SERUM Specime n Type: SERUM No comment entered. Ordering Provider: PRINCESS RAMON Report Released Date/Time: May 01, 2024 08:17 AM Reporting Lab: [address] [address] Performing Lab: [address] [address] UREA NITROGEN 18 mg/dL 7-25 GLUCOSE 123 [...] 81 133/79 16 91 1 261 36 [facility] Social History: Smoking Status (Most current) and Tobacco Use (All prior to encounter date) This section includes the most current, and the historical, smoking and tobacco- related health factors from the [place] facility where the Encounter took place. Current Smoking Status This section includes the most current smoking, or tobacco-related health factor, from the [place] facility where the Encounter took place. Date/Time Current Smoking Status Comment Shanell gale May 10, 2024 10:30 AM [place]-TOBACCO NEVER U SED OTHER TYPE [facility] Tobacco Use History This section includes a history of the smoking, or tobacco-related health factors, that were collected on or before the date of the Encounter. The data comes from the [place] facility where the Encounter took place. 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 [facility] May 10, 2024 10:30 AM VA-TOBACCO USE MED NO [facility] [place] [facility] May 10, 2024 10:30 AM VA-TOBACCO USE SOME DAYS CIGARETTES [facility] Jan 12, 2023 09:00 AM VA-TOBACCO DOESNT USE WI 30 MIN WAKEUP [facility] Jan 12, 2023 09:00 AM VA-TOBACCO USE 30 YEARS OR MORE [facility] [place] [facility] Jan 12, 2023 09:00 AM VA-TOBACCO USE ADVICE [facility] [place] [facility] Jan 12, 2023 09:00 AM 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 [facility] [place] Jan 12, 2023 09:00 AM VA-TOBACCO USE MED NO [facility] [place] [facility] Jan 12, 2023 09:00 AM VA-TOBACCO USER EVERY DAY [facility] [place] [facility] Oct 23, 2021 08:00 AM VA-TOBACCO DOESNT USE WI 30 MIN WAKEUP [facility] [place] [facility] Oct 23, 2021 08:00 AM VA-TOBACCO USE 30 YEARS OR MORE [facility] [place] [facility] Oct 23, 2021 08:00 AM VA-TOBACCO USE ADVICE [facility] [place] [facility] Oct 23, 2021 08:00 AM 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 [facility] [place] [facility] Oct 23, 2021 08:00 AM VA-TOBACCO USE MED NO [facility] [place] [facility] Oct 23, 2021 08:00 AM VA-TOBACCO USER EVERY DAY [facility] [place] [facility] Oct 29, 2020 10:00 AM VA-TOBACCO DOESNT USE WI 30 MIN WAKEUP [place] [facility] [place] [facility] Oct 29, 2020 10:00 AM VA-TOBACCO USE 30 YEARS OR MORE [facility] [place] [facility] Oct 29, 2020 10:00 AM VA-TOBACCO USE ADVICE [place] [facility] [place] [facility] Oct 29, 2020 10:00 AM 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 [place] [facility] [place] [facility] Oct 29, 2020 10:00 AM VA-TOBACCO USE MED NOTIFY PROVIDER [place] [facility] [place] [facility] Oct 29, 2020 10:00 AM VA-TOBACCO USER EVERY DAY [place] [facility] [place] [facility] Oct 10, 2019 11:00 AM VA-TOBACCO FORMER USER [place] [facility] [place] [facility] Oct 10, 2019 11:00 AM VA-TOBACCO QUIT < 1 YEAR [place] [facility] [place] [facility] Oct 26, 2018 07:55 AM VA-TOBACCO USE > 15 LESS THAN 30 YEARS [place] [facility] [place] [facility] Oct 26, 2018 07:55 AM VA-TOBACCO USE ADVICE [place] [facility] [place] [facility] Oct 26, 2018 07:55 AM 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 [place] [facility] [place] [facility] Oct 26, 2018 07:55 AM VA-TOBACCO USE MED NO [place] [facility] [place] [facility] Oct 26, 2018 07:55 AM VA-TOBACCO USE WI 30 MIN OF WAKEUP [place] [facility] [place] [facility] Oct 26, 2018 07:55 AM VA-TOBACCO USER EVERY DAY [place] [facility] [place] [facility] Aug 04, 2017 08:53 AM CURRENT SMOKER [place] [facility] [place] [facility] Aug 04, 2017 08:53 AM V1-PT DECLINES REF TO TOBACCO CESS PRGM [place] [facility] [place] [facility] Aug 04, 2017 08:53 AM V1-PT DECLINES TOBACCO CESSATION MEDS [place] [facility] [place] [facility] Aug 04, 2017 08:53 AM V1-PT THINKING ABOUT QUIT TOBACCO USE [place] [facility] [place] [facility] Jan 31, 2017 09:51 AM QUIT TOBACCO USE IN PAST YEAR 31 days [facility] [place] [facility] Jan 26, 2016 08:36 AM CURRENT SMOKER [facility] [place] [facility] Jan 26, 2016 08:36 AM V1-PT DECLINES REF TO TOBACCO CESS PRGM [facility] [place] [facility] Jan 26, 2016 08:36 AM V1-PT DECLINES TOBACCO CESSATION MEDS [facility] [place] [facility] Jan 26, 2016 08:36 AM V1-PT THINKING ABOUT QUIT TOBACCO USE [facility] [place] [facility] Feb 20, 2015 10:25 AM QUIT TOBACCO USE IN PAST YEAR [facility] [place] June 17, 2014 07:37 AM CURRENT SMOKER Reports being an off and on smoker -cigarettes [facility] June 17, 2014 07:37 AM V1-PT DECLINES REF TO TOBACCO CESS PRGM [facility] [place] June 17, 2014 07:37 AM V1-PT DECLINES TOBACCO CESSATION MEDS [facility] [place] [facility] June 17, 2014 07:37 AM V1-PT THINKING ABOUT QUIT TOBACCO USE [facility] [place] [facility] Sep 14, 2011 09:51 AM CURRENT SMOKER less than a pack a day [facility] [place] Sep 14, 2011 09:51 AM V1-PT DECLINES REF TO TOBACCO CESS [facility] Sep 14, 2011 09:51 AM V1-PT DECLINES TOBACCO CESSATION MEDS [facility] [place] [facility] Sep 14, 2011 09:51 AM V1-PT THINKING ABOUT QUIT TOBACCO USE [facility] [place] [facility] Mar 09, 2010 09:32 AM CURRENT SMOKER 1 ppd [place] [facility] [place] [facility] Mar 09, 2010 09:32 AM V1-PT DECLINES TOBACCO CESSATION MEDS [facility] [place] [facility] Mar 09, 2010 09:32 AM V1-PT REF TO NON-VA TOBACCO CESS PRGM [place] [facility] [place] [facility] Mar 09, 2010 09:32 AM V1-PT THINKING ABOUT QUIT TOBACCO USE [facility] Sep 29, 2009 02:07 PM V1-PT DECLINES REF TO TOBACCO CESS PRGM [facility] Sep 29, 2009 02:07 PM V1-PT DECLINES TOBACCO CESSATION MEDS [facility] Sep 29, 2009 02:07 PM V1-PT NOT INTERESTED IN QUIT TOBACCO USE [facility] Jan 29, 2009 11:00 AM CURRENT SMOKER 1 ppd [facility] Jan 29, 2009 11:00 AM V1-PT DECLINES TOBACCO CESSATION MEDS [facility] Jan 29, 2009 11:00 AM V1-PT READY TO QUIT TOBACCO USE [facility] Mar 17, 2005 08:36 AM CURRENT SMOKER [facility] Advance Directives: All historical and current Section Date Range: From patient's date of to the date document was created. This section includes ALL of a patient's completed or amended [place] Advance and Rescinded Directives. The entries below indicate that a directive exists for the patient, but an actual copy is not included with this document. The data comes from all [place] facilities. Date Advance Directives Provider Source Nov 11, 2023 ADVANCE DIRECTIVE JACOB DEL TORO [facility] Radiology Reports: +/- 30 days of [...] the Encounter. The data comes from all [place] treatment facilities. Date/Time Radiology Report Provider Source May 10, 2024 09:23 AM LDCT LUNG CANCER SCREENING: BRAD BOATENG BATSHEVA [id number] M Exm Date: MAY 10, 2024@09:23 Req Phys: VIRA CRUZ Pat Loc: [facility]CS CHART CONSULT (Req'g L Img Loc: [facility]/CT Service: Unknown [facility] [place], [place] [address] (Case [id number] COMPLETE) LDCT LUNG CANCER SCREENING (CT Detailed) CPT:05198 Reason for Study: LUNG CANCER SCREENING Clinical [...] 10, 2024 Date Verified: MAY 10, 2024 [employer] E-Sig:/ES/SHYAM BROWN JR Report: Study: Lung cancer [...] reviewed. Secondary computer-aided detection with post-processing from [employer] is used. The lack of intravenous contrast [...] Primary Interpreting Staff: SHYAM BROWN JR, Radiologist ([employer]) /SHYAM DAVILA JR [facility] Encounter Notes: All associated encounter notes This section contains the clinical notes associated to the Encounter. Date/Time Encounter Note(s) Provider Source May 10, 2024 03:29 PM ADDENDUM: LOCAL TITLE: Addendum STANDARD TITLE: ADDENDUM DATE OF NOTE: MAY 10, 2024@15:29:17 ENTRY DATE: MAY 10, 2024@15:29:18 AUTHOR: KRISTYN CERVANTES EXP COSIGNER: URGENCY: STATUS: COMPLETED The USPSTF recommends continuing annual screening for Lung Cancer with Low-dose CT in adults age 50 - 80 years, who have a 20 pack year smoking history and currently smoke or have quit within the past 15 years. I did discuss with the recommendations, and the benefits (monitoring for any new changes/nodules) of continued screening with annual LDCT scans until either he has quit for 15 years, or reaches age 80. The agreed to continue screening at this time, and is aware he can opt out of screening at anytime. /natalie/ CORONA MEIER,RN. LUNG CANCER SCREENING NURSE Signed: 05/10/2024 15:33 Receipt Acknowledged By: 05/11/2024 12:35 /natalie/ PRINCESS RAMON D.O. PHYSICIAN --- Original Document --- 05/10/24 LUNG CANCER SCREENING DOCUMENTATION: TRACKING OF NODULE COMPLETED/ENDED. Date of most recent follow-up image: Date: May 10, 2024 Most Recent Lung RADS Score: 2 Lung-RADS Assessment: Category 2, benign appearance or behavior. Recommendation: Continue annual screening with lung cancer screening CT in 12 months. Index Nodule: Stable 5.1 mm solid, round, well-circumscribed, juxtapleural right lower lobe pulmonary nodule, 8-310. Other Nodules: None. INCIDENTAL FINDINGS WILL BE MANAGED DEEMED APPROPRIATE BY PCP Incidental Findings: The following *INCIDENTAL FINDINGS* were noted: Other: Emphysema: Moderate centrilobular and paraseptal emphysematous changes with associated scattered parenchymal scarring is unchanged. Visualized coronary artery calcifications: Atherosclerotic changes of the aorta and coronary arteries. Upper abdomen: Simple cyst again seen in the right lobe of the liver. Partially visualized simple cysts in the right kidney. Bones and soft tissues: Healed left 11th lateral rib fracture. I am notifying the Primary Care Provider for information, and for follow-up of incidental findings, if indicated. Comment: PCP as second signer in CPRS Reason nodule will no longer be tracked: Tracking completed as per LungRADS guidelines or provider recommendation. Plan: Resume routine annual lung cancer screening. Patient Notification of results: Results letter sent to patient. Patient contacted by telephone. Call placed to the . Results of LCS LDCT reviewed specific to pulmonary nodules/masses. [place] aware of stable RLL nodule. Importance of and rationale for continued surveillance with LDCT at an annual interval discussed. [place] states he may end up declining additional scans since this nodule has been stable for so long, reviewed with [place] the benefits of annual screening picking up on any new nodules/masses that may develop and in addition continue to montior existing nodules for changes/signs of cancer. Reviewed USPSTF LCS screening criteria, advised would screen until age 80, or when patient has quit smoking for 15 or more years. [place] has been smoking intermittently, but hasn't smoked in 10 days! Congratulated [place] on this! At this time agrees with continued surveillance through the lung cancer screening program and LCS LDCT in one year. is aware if at any point he should decide he doesn't want to continue to screen he can decline at that time. Order for LCS LDCT in 12 months placed, held for PCP signature /natalie/ KENNY MEIERN,RN. LUNG CANCER SCREENING NURSE Signed: 05/10/2024 14:38 Receipt Acknowledged By: 05/10/2024 15:09 /natalie/ PRINCESS RAMON D.O. PHYSICIAN 05/10/2024 ADDENDUM STATUS: COMPLETED he has had LDCT scans since 2014 with no significant change- isn't it OK to stop at this point? i saw him today for a routine office visist and i told him he didn't need any further /natalie/ PRINCESS RAMON D.O. PHYSICIAN Signed: 05/10/2024 15:10 KRISTYN CERVANTES [facility] May 10, 2024 02:40 PM PREVENTIVE MEDICINE RISK ASSESSMENT SCREENING NOTE: LOCAL TITLE: LUNG CANCER SCREENING DOCUMENTATION STANDARD TITLE: PREVENTIVE MEDICINE RISK ASSESSMENT SCREENING NO DATE OF NOTE: MAY 10, 2024@14:40 ENTRY DATE: MAY 10, 2024@14:40:04 AUTHOR: KRISTYN CERVANTES EXP COSIGNER: URGENCY: STATUS: COMPLETED May 10, 2024 Dear [place]: Mr. Brad Boateng, Your recent lung cancer screening CT scan [...] screening CT scans, but very few nodules collar turner to be cancer. In general, more than 95 out of 100 nodules found on lung cancer screening CT scans are not lung cancer. A copy of the results from your Low-Dose CT scan done on 05/10/2024 are enclosed with this letter. If there are additional findings, we will alert your primary care team. Your next lung cancer screening CT scan is due in 12 months(APRIL 2025). You can call Imaging at [phone] to schedule this appointment. Or the Radiology team will reach out to schedule about 3 months prior to when your scan is due. If at the time of your next scan you are experiencing an upper respiratory illness [...] care provider know. You can also call [phone] ( ) or visit [email or web address]. Please contact us with questions or concerns about lung cancer screening. Sincerely, CORONA Urbano, RN Ext [phone] [facility] Lung Cancer Screening Coordinator Enclosures: brochure entitled, Small Lung Nodules: What You Need to Know /es/ CORONA MEIER,RN. LUNG CANCER SCREENING NURSE Signed: 05/10/2024 14:40 KRISTYN CERVANTES [place] [facility] [place] [facility] May 10, 2024 02:23 PM PREVENTIVE MEDICINE RISK ASSESSMENT SCREENING NOTE: LOCAL TITLE: LUNG CANCER SCREENING DOCUMENTATION STANDARD TITLE: PREVENTIVE MEDICINE RISK ASSESSMENT SCREENING NO DATE OF NOTE: MAY 10, 2024@14:23 ENTRY DATE: MAY 10, 2024@14:23:48 AUTHOR: KRISTYN CERVANTES EXP COSIGNER: URGENCY: STATUS: COMPLETED LUNG CANCER SCREENING DOCUMENTATION Has ADDENDA TRACKING OF NODULE COMPLETED/ENDED. Date of most recent follow-up image: Date: May 10, 2024 Most Recent Lung RADS Score: 2 Lung-RADS Assessment: Category 2, benign appearance or behavior. Recommendation: Continue annual screening with lung cancer screening CT in 12 months. Index Nodule: Stable 5.1 mm solid, round, well-circumscribed, juxtapleural right lower lobe pulmonary nodule, 8-310. Other Nodules: None. INCIDENTAL FINDINGS WILL BE MANAGED DEEMED APPROPRIATE BY PCP Incidental Findings: The following *INCIDENTAL FINDINGS* were noted: Other: Emphysema: Moderate centrilobular and paraseptal emphysematous changes with associated scattered parenchymal scarring is unchanged. Visualized coronary artery calcifications: Atherosclerotic changes of the aorta and coronary arteries. Upper abdomen: Simple cyst again seen in the right lobe of the liver. Partially visualized simple cysts in the right kidney. Bones and soft tissues: Healed left 11th lateral rib fracture. I am notifying the Primary Care Provider for information, and for follow-up of incidental findings, if indicated. Comment: PCP as second signer in CPRS Reason nodule will no longer be tracked: Tracking completed as per LungRADS guidelines or provider recommendation. Plan: Resume routine annual lung cancer screening. Patient Notification of results: Results letter sent to patient. Patient contacted by telephone. Call placed to the [place]. Results of LCS LDCT reviewed specific to pulmonary nodules/masses. [place] aware of stable RLL nodule. Importance of and rationale for continued surveillance with LDCT at an annual interval discussed. states he may end up declining additional scans since this nodule has been stable for so long, reviewed with the benefits of annual screening picking up on any new nodules/masses that may develop and in addition continue to montior existing nodules for changes/signs of cancer. Reviewed USPSTF LCS screening criteria, advised would screen until age 80, or when patient has quit smoking for 15 or more years. has been smoking intermittently, but hasn't smoked in 10 days! Congratulated on this! At this time [place] agrees with continued surveillance through the lung cancer screening program and LCS LDCT in one year. [place] is aware if at any point he should decide he doesn't want to continue to screen he can decline at that time. Order for LCS LDCT in 12 months placed, held for PCP signature /natalie/ KENNY MEIERN,RN. LUNG CANCER SCREENING NURSE Signed: 05/10/2024 14:38 Receipt Acknowledged By: 05/10/2024 15:09 /natalie/ PRINCESS RAMON D.O. PHYSICIAN 05/10/2024 ADDENDUM STATUS: COMPLETED he has had LDCT scans since 2014 with no significant change- isn't it OK to stop at this point? i saw him today for a routine office visist and i told him he didn't need any further /natalie/ PRINCESS RAMON D.O. PHYSICIAN Signed: 05/10/2024 15:10 05/10/2024 ADDENDUM STATUS: COMPLETED The USPSTF recommends continuing annual screening for Lung Cancer with Low-dose CT in adults age 50 - 80 years, who have a 20 pack year smoking history and currently smoke or have quit within the past 15 years. I did discuss with the recommendations, and the benefits (monitoring for any new changes/nodules) of continued screening with annual LDCT scans until either he has quit for 15 years, or reaches age 78. The agreed to continue screening at this time, and is aware he can opt out of screening at anytime. /natalie/ CORONA MEIER,RN. LUNG CANCER SCREENING NURSE Signed: 05/10/2024 15:33 Receipt Acknowledged By: * AWAITING SIGNATURE * PRINCESS RAMON SARAH D [facility]
[2024-07-19 13:15] VITALS: BMI 35.3
--- NOTE | 2024-07-20 10:32 | HO.ANESPROP2 ---
HPI - Anesthesia Eval Consult details Narrative: 73yo M for Laser Ablation Prostate w/Green Light Pulmo optimized. Follows [facility] for COPD, snf smoker [facility] Active Problems Active Problems: All Active Problems Encounter for preoperative pulmonary examination (Acute) Dyspnea on exertion (Acute) Incomplete emptying of bladder due to benign prostatic hyperplasia (Acute) BPH (benign prostatic hyperplasia) (Acute) Pulmonary nodules (Acute) COPD (chronic obstructive pulmonary disease) (Acute) Personal history of nicotine dependence (Acute) Past Medical History Medical History Frequent urination Nocturia Other obesity not elsewhere classified Other male erectile dysfunction Other hemochromatosis Impacted cerumen Depressive disorder, not elsewhere classified Centrilobular emphysema Elevated PSA Hemochromatosis Pulmonary nodules COPD (chronic obstructive pulmonary disease) Personal history of nicotine dependence BPH (benign prostatic hyperplasia) Erectile dysfunction Family History Family History Mother Sepsis Father GI cancer Surgical History Surgical History History of tonsillectomy History of appendectomy History of colonoscopy Social History Social History Patient Tobacco Use Status: Current everyday Tobacco user Tobacco use type: Cigarette Cigarettes Per Day: 2 Years Smoked: smoked for 60 years 1PPD, quit a few days ago. started at 11 Meds Allergies Allergy/AdvReac Type Severity Reaction Status Date / Time varenicline (From [employer]) Allergy Mild Unknown Verified 07/23/24 09:26 Home Medications ?Medication ?Instructions ?Recorded ?Confirmed ?Last Taken ?Type finasteride 5 mg tablet 5 mg PO DAILY 02/09/24 07/23/24 Unknown History fluticasone 250 mcg-salmeterol 50 1 inh inhalation BID 02/09/24 07/23/24 Unknown History mcg/dose blistr powdr for inhalation lidocaine 5 % topical patch 1 patch topical DAILY 02/09/24 07/23/24 Unknown History tamsulosin 0.4 mg capsule 0.4 mg PO BEDTIME 02/09/24 07/23/24 Unknown History tiotropium bromide 2.5 2 puff inhalation DAILY 02/09/24 07/23/24 Unknown History mcg/actuation mist for inhalation Exam Height,Weight and Vital Signs: Height 6 ft Weight 117.934 kg Assessment and Plan Assessment Anesthesia Assessment: Chart Reviewed
--- NOTE | 2024-07-23 09:21 | P.CONAN_ITS ---
FORM[facility]LY [facility] Active Problems Active Problems: All Active Problems Encounter for preoperative pulmonary examination (Acute) Dyspnea on exertion (Acute) Incomplete emptying of bladder due to benign prostatic hyperplasia (Acute) BPH (benign prostatic hyperplasia) (Acute) Pulmonary nodules (Acute) COPD (chronic obstructive pulmonary disease) (Acute) Personal history of nicotine dependence (Acute) Past Medical History Medical History Frequent urination Nocturia Other obesity not elsewhere classified Other male erectile dysfunction Other hemochromatosis Impacted cerumen Depressive disorder, not elsewhere classified Centrilobular emphysema Elevated PSA Hemochromatosis Pulmonary nodules COPD (chronic obstructive pulmonary disease) Personal history of nicotine dependence BPH (benign prostatic hyperplasia) Erectile dysfunction Family History Family History Mother Sepsis Father GI cancer Surgical History Surgical History History of tonsillectomy History of appendectomy History of colonoscopy History of Problems with Anesthesia: No Social History Social History Patient Tobacco Use Status: Current someday Tobacco user Tobacco use type: Cigarette Years Smoked: smoked for 60 years 1PPD, quit a few days ago. started at 11 Advance Directives: No Advance Directives Information Provided: Yes Meds Allergies Allergy/AdvReac Type Severity Reaction Status Date / Time varenicline [From Chantix] Allergy Mild Unknown Verified 07/23/24 09:26 Active Medications: Current Medications Albuterol Sulfate (Albuterol Sulfate (0.083%) 2.5 Mg/3 Ml Vial.Neb) 2.5 mg INHALE ONCE PRN PRN Reason: Shortness of Breath/Wheezing Lactated Ringer's (Lr) 1,000 mls @ 100 mls/hr IVCONT .Q10H MUKESH Levofloxacin (Levaquin) 500 mg in 100 mls @ 100 mls/hr IV PREOP ONE Stop: 07/23/24 10:04 Home Medications ?Medication ?Instructions ?Recorded ?Confirmed ?Last Taken ?Type finasteride 5 mg tablet 5 mg PO DAILY 02/09/24 Unknown History fluticasone 250 mcg-salmeterol 50 1 inh inhalation BID 02/09/24 Unknown History mcg/dose blistr powdr for inhalation lidocaine 5 % topical patch 1 patch topical DAILY 02/09/24 Unknown History tamsulosin 0.4 mg capsule 0.4 mg PO BEDTIME 02/09/24 Unknown History tiotropium bromide 2.5 2 puff inhalation DAILY 02/09/24 Unknown History mcg/actuation mist for inhalation Exam Height,Weight and Vital Signs: Height 6 ft Weight 117.934 kg Airway Mallampati Class: III TM Dist: >3cm Neck ROM: Full Denture: Upper and Lower Loose/Missing/Broken Teeth: Yes, Upper and Lower Heart: RRR Lungs: CTA Assessment and Plan Assessment Anesthesia Assessment: Anesthesia Plan Discussed and Chart Reviewed Final Anesthetic Review History of Problems with Anesthesia: No NPO: Yes ASA Class: III Final Preanesthetic Review: Meds/Allgs Chart Reviewed, Consent Obtained/Reviewed and Anes Risks/Benef Reviewed Patient Risk: Intermediate Procedure Risk: Low Anesthetic Plan Anesthetic Plan: GA Disposition: Standard PACU
[2024-07-23 09:27] VITALS: BP 137/93; PULSE 17; RESP 17; TEMP 36.3; O2SAT 95; BMI 34.1
[2024-07-23] MEDS: Lactated Ringers 1,000 ML 100 ML IVCONT (09:37)
--- NOTE | 2024-07-23 09:51 | MHC.SHP ---
Pre-Procedural Eval Section A - 24 Hr Update-Section A only Date of Service: 07/23/24 The patient is an INPATIENT: No Changes since office visit: No Cold of Flu in the past 2 weeks, No New Medical Problems, No Changes in Medication and No Patient answered all questions The patient has been examined within 24 hours of the surgical procedure. The History & Physical has been completed within 30 days and I have reviewed it.: Yes Section B - Complete if H&P > 30 days Chief Complaint: Benign prostatic hyperplasia with lower urinary tr Allergies: Allergies Allergy/AdvReac Type Severity Reaction Status Date / Time varenicline [From Chantix] Allergy Mild Unknown Verified 07/23/24 09:26 Review of Systems Sugical H&P ROS: Negative: Constitution, Cardiovascular, Respiratory, Neurological, Psychiatric, Hem-Onc, Allergic/Immunologic, Gastrointestinal, Genitourinary, Musculoskeletal, Integumentary, Endocrine and Eyes/Ears/Nose/Throat Exam Surgical H&P Exam: Normal: HEENT, Normal: Heart, Normal: Lungs, Normal: Extremities, Normal: Abdomen, Normal: Skin and Normal: Neurological Plan Diagnosis/Plan: Unchanged (greenlight laser prostate) I have reviewed the history and physical and performed a pertinent physical examination on my patient. No changes have occurred unless specified. Time Spent With Patient Time: Total time managing care of this patient today ____ minutes.
--- NOTE | 2024-07-23 10:45 | W.PM.OPN ---
Operative Note Operative Note Date of Service: 07/23/24 Narrative: PreOperative Diagnosis: Bladder outlet obstruction Post Operative Diagnosis: Bladder outlet obstruction Procedure: GreenLight Laser Enucleation of the prostate CPT 57601 Surgeon: Dr Roe Serrano Anesthesia: General History of bladder outlet obstruction. Treated with alpha-tracy and other medications. Still with symptoms. On cystoscopy in office has tight bladder neck. Recommendation for prostate procedure with laser enucleation of prostate. Risks and benefits have been discussed. Focus was placed on development of retrograde ejaculation which is a normal part of this procedure. Procedure: After informed consent was verified the patient was brought to the operating room and placed in a supine position. Anesthesia was administered per protocol. Patient was placed in modified dorsal lithotomy position and prepped and draped in a sterile fashion. Safety pause time-out was confirmed. Antibiotics have been given. A Twenty-four Portuguese laser cystoscope was inserted per urethra. No abnormalities were found of the anterior and bulbar urethra. The prostatic urethra shows tight bladder neck, lateral lobe crowding. The bladder was examined and both ureteric orifices were seen in their normal positions away from the area of interest. Bladder trabeculation Grade 1 but did have terminal glomerulations. Using a GreenLight laser with initial settings of 80 parekh incisions were made at the 5 and 7 o'clock position. The incisions were taken down from the bladder neck down to the area just proximal of the veru. These were gradually deepened in order to define the lateral aspects of the median lobe area. The deep boundary of enucleation was defined by the prostate surgical capsule. Once clearly defined the grooves were extended in the lateral directions in order to create a deep groove. The median lobe was then ablated and enucleated tissue released into the bladder with the laser power increased to 120 W. meet disla. Once the median lobe area had been cleared, attention was directed to the lateral lobes. Starting with the patient's left lateral lobe. First the 05:00 o'clock groove was further developed. This was moved in the lateral direction to undermine the tissue on the lateral side running from the bladder neck to the prostate apex. The ureteric orifice was used to guide incisions. The laser fiber was placed at the 1 o'clock position and a secondary groove was developed down to the level of prostatic capsule. The creation of a second deep groove defined a segment of intervening tissue similar to a slice of orange. At the apex of the prostate the laser was used to vertically link the two grooves releasing the intervening tissue and creating a segment of tissue. This tissue was then removed with a combination of enucleation and ablation working from the apex toward the bladder neck. A similar procedure was repeated on the patient's right-hand side. The only differences being the position of the lateral groove at he 7 o'clock position and the secondary groove at the 11 o'clock position, Otherwise the procedure was developed in a mirror fashion. Laser power 120W After the majority of tissue had been debulked remnant tissue was ablated with the side fire laser and the curve of the prostate followed up each side wall clearly defining the anterior remnant strip that remained between the 11 and 1 o'clock positions. At completion debris and pieces of prostate were removed from the bladder with irrigation. Both ureteric orifices were reviewed again in shown to be patent in away from any areas of energy damage. The apical area was reviewed and any stray mucosal ooze was controlled. A 22 Portuguese 30 cc balloon Jade catheter was placed into the bladder using a flexible stylet. Clear efflux was obtained upon irrigation with a Tesha piston syringe. 50 cc was placed in the balloon and gentle traction was placed. A snap was used to hold tension on the catheter to control bleeding during patient moved and transported. A drainage bag was placed. Once transportation is complete to the PACU the snap will be removed. The patient tolerated the procedure well, he was extubated in the operating and transferred in a stable condition to the recovery area. Total Power 127 kJ Lasing time 18:38 Pathology: Prostate tissue Drains: Jade catheter
[2024-07-23 10:51] VITALS: BP 109/79; PULSE 74; RESP 18; TEMP 36.6; O2SAT 93
[2024-07-23 10:55] VITALS: BP 118/73; PULSE 75; RESP 20; O2SAT 92
[2024-07-23 11:00] VITALS: BP 117/62; PULSE 77; RESP 18; O2SAT 93
[2024-07-23 11:05] VITALS: BP 121/74; PULSE 80; RESP 18; O2SAT 92
[2024-07-23 11:20] VITALS: BP 132/76; PULSE 77; RESP 16; TEMP 36.1; O2SAT 93
== END 2024-07-23 12:24 | disposition home or self-care (01) ==
PROVIDERS: PCP Internal Medicine; Visit Provider Urology
PROC: (CPT 52648; principal; 2024-07-23 09:30)
DX: N40.1 Benign prostatic hyperplasia with lower urinary tract symptoms (principal); N13.8 Other obstructive and reflux uropathy; N42.0 Calculus of prostate; N32.89 Other specified disorders of bladder; R35.1 Nocturia; R35.0 Frequency of micturition; N52.9 Male erectile dysfunction, unspecified; J44.9 Chronic obstructive pulmonary disease, unspecified; J43.2 Centrilobular emphysema; E83.119 Hemochromatosis, unspecified; R91.8 Other nonspecific abnormal finding of lung field; F32.A Depression, unspecified; E66.9 Obesity, unspecified; Z68.35 Body mass index [BMI] 35.0-35.9, adult; Z79.51 Long term (current) use of inhaled steroids; Z79.899 Other long term (current) drug therapy; Z88.8 Allergy status to other drugs, medicaments and biological substances; Z98.890 Other specified postprocedural states; F17.210 Nicotine dependence, cigarettes, uncomplicated
CPT/HCPCS: 52649; 88305; J1100; J1956; J2003; J2405; J2704; J3010

== ENCOUNTER → 2024-07-23 08:46 | Outpatient (BNV) | payer OTHER, SELFPAY | PROVIDERS: PCP Internal Medicine; Visit Provider Urology | DX: N32.0 Bladder-neck obstruction (principal) | CPT/HCPCS: 52649 ==

== ENCOUNTER → 2024-07-25 08:39 | Outpatient (BNVA) | payer OTHER, SELFPAY | PROVIDERS: PCP Obstetrics & Gynecology; Visit Provider Urology | DX: N40.1 Benign prostatic hyperplasia with lower urinary tract symptoms (principal); R33.9 Retention of urine, unspecified | CPT/HCPCS: 51700; 51798 ==

== ENCOUNTER 2024-08-28 09:49 | Outpatient (REF) | payer OTHER, SELFPAY ==
--- OUTSIDE RECORDS SUMMARY | 2024-08-28 05:32 | XMS_ITS | Continuity of Care Document ---
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 It does not include entries that were removed or entered in error. Problem Status Onset Date Problem Type Date of Resolution Comments Source Hemochromatosis (SNOMED CT 653354731) Active 02/14/18 96 Condition Nov 11, 2023 Entered By: PRINCESS RAMON Comment: keep HCT <16, ferritin <200. phlebotomy at [facility] [place] changed to every other month, 450cc [facility] Benign prostatic hyperplasia Active Condition May 10, 2024 Entered By: PRINCESS RAMON Comment: caren Collins urology- plan for TURP [facility] Centriacinar emphysema Active Condition May 10, 2024 Entered By: PRINCESS RAMON Comment: caren collins pulmonary [facility] Erectile dysfunction (SNOMED CT 396445958) Active Condition [facility] Hemochromatosis Active Condition [facility] Impaired fasting glucose Active Condition [facility] Nicotine dependence (SNOMED CT 29559871) Active Condition [facility] [...] Actinic keratosis Active Diagnosis [facility] Diagnosis: ICD-10-CM R91.1 Solitary pulmonary nodule Active Diagnosis [facility] Diagnosis: ICD-10-CM H02.88B Meibomian gland dysfnct left eye, upper and lower eyelids Active Diagnosis [facility] Medications Combined list of outpatient medications from [...] G RESPIR ATORY (INHAL ATION) ACTIVE 11/25/2024 [id number] FURCOLO,T PATY 2023 3 [facility] ALBUTEROL 90MCG/ACTUA T (CFC-F) INHL,ORAL,8 .5GM DOSE COUNTER INHALE 2 PUFFS BY MOUTH FOUR TIMES DAILY NEEDED FOR BREATHIN G RESPIR ATORY (INHAL ATION) DISCONT INUED 08/16/2024 [id number] 4 FURCOLO,T PATY 2023 1 [facility] ALBUTEROL 90MCG/ACTUA T (CFC-F) INHL,ORAL,8 .5GM DOSE COUNTER INHALE 2 PUFFS BY MOUTH FOUR TIMES DAILY NEEDED FOR BREATHIN G RESPIR ATORY (INHAL ATION) DISCONT INUED 07/06/2023 [id number] 4 [facility] 1 [facility] FINASTERIDE 5MG TAB TAKE ONE TABLET BY MOUTH ONCE DAILY FOR PROSTATE ORAL ACTIVE 02/13/2025 [id number] 5 FURCOLO,T PATY 2023 90 [facility] FINASTERIDE 5MG TAB TAKE ONE TABLET BY MOUTH ONCE DAILY FOR PROSTATE ORAL DISCONT INUED 01/13/2024 [id number] 4 [facility] 2022 90 [facility] FLUTICASONE 250MCG/SALM ETEROL 50MCG INHL,ORAL,D ISKUS,60 INHALE 1 PUFF BY MOUTH TWICE DAILY FOR BREATHIN G - RINSE MOUTH AFTER USE RESPIR ATORY (INHAL ATION) ACTIVE 05/11/2025 [id number] 5 FURCOLO,T PATY 2024 3 [facility] FLUTICASONE 250MCG/SALM ETEROL 50MCG INHL,ORAL,D ISKUS,60 INHALE 1 PUFF BY MOUTH TWICE DAILY FOR BREATHIN G - RINSE MOUTH AFTER USE RESPIR ATORY (INHAL ATION) DISCONT INUED 08/16/2024 [id number] 5 FURCOLO,T PATY 2023 1 [facility] FLUTICASONE 250MCG/SALM ETEROL 50MCG INHL,ORAL,D ISKUS,60 INHALE 1 PUFF BY MOUTH TWICE DAILY FOR BREATHIN G - RINSE MOUTH AFTER USE RESPIR ATORY (INHAL ATION) DISCONT INUED 01/13/2024 [id number] 4 [facility] 20[facility] 1 [facility] LIDOCAINE 5% PATCH APPLY 1 PATCH TOPICALL Y ONCE DAILY FOR NERVE PAIN (LEAVE PATCH ON FOR 12 HOURS, THEN REMOVE PATCH) TOPICA L ACTIVE 11/11/2024 [id number] FURCOLO,T PATY 2023 90 [facility] TAMSULOSIN HCL 0.4MG CAP TAKE ONE CAPSULE BY MOUTH AT BEDTIME ORAL DISCONT INUED 01/13/2024 [id number] 4 [facility] JAWED 2022 90 [facility] TAMSULOSIN HCL 0.4MG CAP TAKE ONE CAPSULE BY MOUTH AT BEDTIME ORAL 08/16/2024 [id number] 5 FURCOLO,T PATY 2023 90 [facility] TIOTROPIUM 2.5MCG/ACTU AT INHL,ORAL,6 0D,4GM INHALE 2 PUFFS BY MOUTH ONCE DAILY RESPIR ATORY (INHAL ATION) ACTIVE 05/11/2025 [id number] 5 FURCOLO,T PATY 2024 3 [facility] TIOTROPIUM 2.5MCG/ACTU AT INHL,ORAL,6 0D,4GM INHALE 2 PUFFS BY MOUTH ONCE DAILY RESPIR ATORY (INHAL ATION) DISCONT INUED 08/16/2024 [id number] 5 FURCOLO,T PATY 2023 1 [facility] TIOTROPIUM 2.5MCG/ACTU AT INHL,ORAL,6 0D,4GM INHALE 2 PUFFS BY MOUTH ONCE DAILY RESPIR ATORY (INHAL ATION) DISCONT INUED 01/13/2024 [id number] 4 [facility] JAWED 2022 1 [facility] Allergies, Adverse Reactions, Alerts Combined list of allergies from Department of Defense and Veterans Affairs facilities. It does not include entries that were removed or entered in error. Substance Category Reaction Severity Reaction type Status Date Reported Comments Source CHANTIX Propensity to adverse reactions to drug (finding) Anxiety active 0 [facility] Immunizations Combined list of available immunizations from the Department of Defense and Veterans Affairs facilities. Immunization Series Date Given Administered By Site Reaction Lot Number CVX Code Drug Data Network Architect Status Comments Source INFLUENZA, HIGH-DOSE, QUADRIVALENT 2022 AUGUST ESP[employer]AM[employer] Jamison Jas LEFT DELTO ID [id number] 197 complet ed Completed Series, ADMINISTE RED AT PA, [facility] INFLUENZA VACCINE, QUADRIVALENT, ADJUVANTED 2021 205 complet ed [facility] ZOSTER RECOMBINANT 2 2021 187 complet ed [facility] COVID-19 (MODERNA), MRNA, LNP-S, PF, 100 MCG OR 50 MCG DOSE 3 2020 207 complet ed MOD; [id number]; 2 [facility] [...] DOSE 2 2020 207 complet ed MOD; [id number]; 1 [facility] COVID-19 (MODERNA), MRNA, LNP-S, PF, 100 MCG/0.5 ML DOSE 1 2020 207 complet ed MOD; [id number]; 1 [facility] INFLUENZA, UNSPECIFIED FORMULATION 2019 88 complet ed [facility] PNEUMOCOCCAL CONJUGATE PCV 13 2014 133 complet ed [facility] ZOSTER (SHINGLES) (HISTORICAL) 2014 121 complet ed Proximal Left [facility] DTAP, UNSPECIFIED FORMULATION 2010 107 complet ed Site: Left Deltoid [facility] PNEUMOCOCCAL, UNSPECIFIED FORMULATION 2005 KEITH CESAR 109 complet ed [facility] Results Combined list [...] May 01, 2024 08:17 AM Reporting Lab: [address] [address] Performing Lab: [facility] [address] [facility] [facility] [address] [facility] HEMOGLOBI N A1C PANEL HEMOGLOBIN A1C/HEMOGLO [...] May 01, 2024 08:17 AM Reporting Lab: [facility] [address] [facility] [facility] [address] Performing Lab: [facility] [address] [facility] LIVER FUNCTION PROTEIN [MASS/VOLUM E] IN SERUM OR PLASMA 6.7 g/dL 6.0 - 8.3 05/04 Specimen Type: SERUM No comment entered. Ordering Provider: RADHA RAMON Report Released Date/Time: May 01, 2024 08:17 AM Reporting Lab: [facility] [facility] [address] [facility] [address] Performing Lab: [facility] [place] [facility] [address] [facility] [facility] [address] [facility] LIVER FUNCTION ALBUMIN [MASS/VOLUM E] IN SERUM OR PLASMA 4.0 g/dL 3.5 - 5.0 05/04 Specimen Type: SERUM No comment entered. Ordering Provider: RADHA RAMON Report Released Date/Time: May 01, 2024 08:17 AM Reporting Lab: [facility] [place] [facility] [address] [facility] [address] Performing Lab: [facility] [place] [facility] [address] [facility] [address] [facility] LIVER FUNCTION ALKALINE PHOSPHATASE [ENZYMATIC ACTIVITY/VO LUME] IN SERUM OR PLASMA 81 U/L 40 - 150 05/04 Specimen Type: SERUM No comment entered. Ordering Provider: RADHA RAMON Report Released Date/Time: May 01, 2024 08:17 AM Reporting Lab: [facility] [place] [facility] [address] [facility] [address] Performing Lab: [facility] [place] [facility] [address] [facility] [facility] [address] [facility] LIVER FUNCTION ASPARTATE AMINOTRANSF ERASE [ENZYMATIC ACTIVITY/VO LUME] IN SERUM OR PLASMA 18 U/L 5 - 34 05/04 Specimen Type: SERUM No comment entered. Ordering Provider: RADHA RAMON Report Released Date/Time: May 01, 2024 08:17 AM Reporting Lab: [facility] [place] [facility] [address] [facility] [address] Performing Lab: [facility] [place] [facility] [address] [facility] [address] [facility] LIVER FUNCTION ALANINE AMINOTRANSF ERASE [ENZYMATIC ACTIVITY/VO LUME] IN SERUM OR PLASMA 32 U/L 05/04 Specimen Type: SERUM No comment entered. Ordering Provider: RADHA RAMON Report Released Date/Time: May 01, 2024 08:17 AM Reporting Lab: [facility] [place] [facility] [address] [facility] [address] Performing Lab: [facility] [place] [facility] [address] [facility] [address] [facility] LIVER FUNCTION BILIRUBIN.T OTAL [MASS/VOLUM E] IN SERUM OR PLASMA 0.7 mg/dL 0.2 - 1.2 05/04 Specimen Type: SERUM No comment entered. Ordering Provider: RADHA RAMON Report Released Date/Time: May 01, 2024 08:17 AM Reporting Lab: [facility] [address] [address] Performing Lab: [facility] [address] [address] [facility] [place] [facility] CBC LEUKOCYTES [#/VOLUME] IN BLOOD BY AUTOMATED COUNT 7.46 10*3/u L 4.50 - 11.00 05/04 Specimen Type: BLOOD No comment entered. Ordering Provider: RADHA RAMON Report Released Date/Time: May 01, 2024 08:17 AM Reporting Lab: [facility] [address] [address] Performing Lab: [facility] [place] [address] [address] [facility] CBC ERYTHROCYTE S [#/VOLUME] IN BLOOD BY AUTOMATED COUNT 4.82 10*6/u L 4.23 - 5.66 05/04 Specimen Type: BLOOD No comment entered. Ordering Provider: RADHA RAMON Report Released Date/Time: May 01, 2024 08:17 AM Reporting Lab: [facility] [place] [address] [address] Performing Lab: [facility] [place] [address] [address] [facility] CBC HEMOGLOBIN [MASS/VOLUM E] IN BLOOD 15.6 g/dL 12.8 - 17 05/04 Specimen Type: BLOOD No comment entered. Ordering Provider: RADHA RAMON Report Released Date/Time: May 01, 2024 08:17 AM Reporting Lab: [facility] [address] [facility] [address] Performing Lab: [facility] [address] [facility] [address] [facility] [place] [facility] CBC HEMATOCRIT [VOLUME FRACTION] OF BLOOD BY AUTOMATED COUNT 45.4 39.2 - 50.4 05/04 Specimen Type: BLOOD No comment entered. Ordering Provider: RADHA RAMON Report Released Date/Time: May 01, 2024 08:17 AM Reporting Lab: [facility] [place] [facility] [address] [facility] [address] Performing Lab: [facility] [place] [facility] [address] [facility] [facility] [address] [facility] [place] CBC MCV [ENTITIC VOLUME] BY AUTOMATED COUNT 94.2 fL 82 - 99 05/04 Specimen Type: BLOOD No comment entered. Ordering Provider: RADHA RAMON Report Released Date/Time: May 01, 2024 08:17 AM Reporting Lab: [facility] [place] [facility] [address] [facility] [address] Performing Lab: [facility] [address] [facility] [address] [facility] [place] [facility] CBC MCHC [MASS/VOLUM E] BY AUTOMATED COUNT 34.4 g/dL 30.8 - 35.1 05/04 Specimen Type: BLOOD No comment entered. Ordering Provider: RADHA RAMON Report Released Date/Time: May 01, 2024 08:17 AM Reporting Lab: [facility] [place] [facility] [address] [facility] [address] Performing Lab: [facility] [place] [facility] [address] [facility] [address] [facility] CBC PLATELETS [#/VOLUME] IN BLOOD BY AUTOMATED COUNT 158 10*3/u L 140 - 360 05/04 Specimen Type: BLOOD No comment entered. Ordering Provider: RADHA RAMON Report Released Date/Time: May 01, 2024 08:17 AM Reporting Lab: [facility] [place] [facility] [address] [facility] [address] Performing Lab: [facility] [address] [facility] [address] [facility] [place] [facility] CBC ERYTHROCYTE DISTRIBUTIO N WIDTH [RATIO] BY AUTOMATED COUNT 12.4 12.0 - 16.0 05/04 Specimen Type: BLOOD No comment entered. Ordering Provider: RADHA RAMON Report Released Date/Time: May 01, 2024 08:17 AM Reporting Lab: [facility] [place] [facility] [address] [facility] [address] Performing Lab: [facility] [place] [facility] [address] [facility] [address] [facility] [place] [facility] CBC MCH [ENTITIC MASS] BY AUTOMATED COUNT 32.4 pg 26.2 - 32.6 05/04 Specimen Type: BLOOD No comment entered. Ordering Provider: RADHA RAMON Report Released Date/Time: May 01, 2024 08:17 AM Reporting Lab: [facility] [place] [facility] [address] [facility] [address] Performing Lab: [facility] [place] [facility] [address] [facility] [address] [facility] [place] [facility] LIPID PANEL FASTING CHOLESTEROL [MASS/VOLUM E] IN SERUM OR PLASMA 162 mg/dL 05/04 Specimen Type: SERUM No comment entered. Ordering Provider: RADHA RAMON Report Released Date/Time: May 01, 2024 08:17 AM Reporting Lab: [facility] [place] [facility] [address] [facility] [address] Performing Lab: [facility] [place] [facility] [address] [facility] [address] [facility] [place] [facility] LIPID PANEL FASTING TRIGLYCERID E [MASS/VOLUM E] IN SERUM OR PLASMA 119 mg/dL 0 - 150 05/04 Specimen Type: SERUM No comment entered. Ordering Provider: RADHA RAMON Report Released Date/Time: May 01, 2024 08:17 AM Reporting Lab: [facility] [place] [facility] [address] [facility] [address] Performing Lab: [facility] [place] [facility] [address] [facility] [facility] [address] [facility] [place] [facility] LIPID PANEL FASTING CHOLESTEROL IN LDL [MASS/VOLUM E] IN SERUM OR PLASMA BY CALCULATION 97 mg/dL 0 - 129 05/04 Specimen Type: SERUM No comment entered. Ordering Provider: RADHA RAMON Report Released Date/Time: May 01, 2024 08:17 AM Reporting Lab: [facility] [place] [address] [address] Performing Lab: [facility] [place] [address] [address] [facility] [place] [facility] LIPID PANEL FASTING CHOLESTEROL .TOTAL/CHOL ESTEROL IN HDL [MASS RATIO] IN SERUM OR PLASMA 4.0 05/04 Specimen Type: SERUM No comment entered. Ordering Provider: RADHA RAMON Report Released Date/Time: May 01, 2024 08:17 AM Reporting Lab: [facility] [place] [address] [address] Performing Lab: [facility] [place] [facility] [address] [facility] [address] [facility] [place] LIPID PANEL FASTING CHOLESTEROL IN HDL [MASS/VOLUM E] IN SERUM OR PLASMA 41 mg/dL 40 - 60 05/04 Specimen Type: SERUM No comment entered. Ordering Provider: RADHA RAMON Report Released Date/Time: May 01, 2024 08:17 AM Reporting Lab: [facility] [place] [address] [address] Performing Lab: [facility] [facility] [address] [facility] [address] [facility] BASIC METABOLIC PANEL (fasting) UREA NITROGEN [MASS/VOLUM E] IN SERUM OR PLASMA 18 mg/dL 7 - 25 05/04 Specimen Type: SERUM No comment entered. Ordering Provider: RADHA RAMON Report Released Date/Time: May 01, 2024 08:17 AM Reporting Lab: [facility] [place] [facility] [address] [facility] [address] Performing Lab: [facility] [place] [address] [address] [facility] [place] [facility] BASIC METABOLIC PANEL (fasting) GLUCOSE [MASS/VOLUM E] IN SERUM OR PLASMA 123 mg/dL 65 - 100 05/04 H Specimen Type: SERUM No comment entered. Ordering Provider: RADHA RAMON Report Released Date/Time: May 01, 2024 08:17 AM Reporting Lab: [facility] [place] [address] [address] Performing Lab: [facility] [place] [address] [address] [facility] [place] [facility] BASIC METABOLIC PANEL (fasting) SODIUM [MOLES/VOLU ME] IN SERUM OR PLASMA 139 mmol/L 135 - 145 05/04 Specimen Type: SERUM No comment entered. Ordering Provider: RADHA RAMON Report Released Date/Time: May 01, 2024 08:17 AM Reporting Lab: [facility] [place] [address] [address] Performing Lab: [facility] [place] [address] [address] [facility] [place] [facility] BASIC METABOLIC PANEL (fasting) POTASSIUM [MOLES/VOLU ME] IN SERUM OR PLASMA 4.2 mmol/L 3.5 - 5.0 05/04 Specimen Type: SERUM No comment entered. Ordering Provider: RADHA RAMON Report Released Date/Time: May 01, 2024 08:17 AM Reporting Lab: [facility] [place] [address] [place] [address] Performing Lab: [facility] [address] [facility] [facility] [address] [facility] BASIC METABOLIC PANEL (fasting) CHLORIDE [MOLES/VOLU ME] IN SERUM OR PLASMA 106 mmol/L 100 - 110 05/04 Specimen Type: SERUM No comment entered. Ordering Provider: RADHA RAMON Report Released Date/Time: May 01, 2024 08:17 AM Reporting Lab: [facility]ERYRM[facility] [address] [facility] [address] Performing Lab: [facility] [address] [address] [facility] BASIC METABOLIC PANEL (fasting) CARBON DIOXIDE, TOTAL [MOLES/VOLU ME] IN SERUM OR PLASMA 26 meq/L 20 - 30 05/04 Specimen Type: SERUM No comment entered. Ordering Provider: RADHA RAMON Report Released Date/Time: May 01, 2024 08:17 AM Reporting Lab: [facility] [address] [facility] [address] Performing Lab: [facility] [address] [facility] [address] [facility] BASIC METABOLIC PANEL (fasting) CALCIUM [MASS/VOLUM E] IN SERUM OR PLASMA 8.8 mg/dL 8.5 - 10.2 05/04 Specimen Type: SERUM No comment entered. Ordering Provider: RADHA RAMON Report Released Date/Time: May 01, 2024 08:17 AM Reporting Lab: [facility]N [facility] [address] [facility] [address] Performing Lab: [facility]N [facility] [address] [facility] [address] [facility] BASIC METABOLIC PANEL (fasting) CREATININE [MASS/VOLUM E] IN SERUM OR PLASMA 0.87 mg/dL 0.50 - 1.40 05/04 Specimen Type: SERUM No comment entered. Ordering Provider: FURCOLO,TIN A Report Released Date/Time: May 01, 2024 08:17 AM Reporting Lab: [facility] [place] [facility] [address] [facility] [address] Performing Lab: [facility] [place] [facility] [address] [facility] [address] [facility] [place] [facility] BASIC METABOLIC PANEL (fasting) GLOMERULAR FILTRATION RATE/1.73 SQ M.PREDICTED [VOLUME RATE/AREA] IN SERUM, PLASMA OR BLOOD BY CREATININE- BASED FORMULA (CKD-EPI 2020) 89 mL/min 60 05/04 Specimen Type: SERUM No comment entered. Ordering Provider: RADHA RAMON Report Released Date/Time: May 01, 2024 08:17 AM Reporting Lab: [facility] [place] [facility] [address] [facility] [address] Performing Lab: [facility] [place] [facility] [address] [facility] [address] [facility] [place] [facility] FERRITIN FERRITIN [MASS/VOLUM E] IN SERUM OR PLASMA 144 ng/mL 20 - 300 11/02 Specimen Type: SERUM No comment entered. Ordering Provider: RADHA RAMON Report Released Date/Time: Nov 01, 2023 12:47 PM Reporting Lab: [facility] [place] [facility] [address] [facility] [address] Performing Lab: [facility] [place] [facility] [address] [facility] [address] [facility] [place] [facility] IRON & TIBC PANEL IRON BINDING CAPACITY [MASS/VOLUM E] IN SERUM OR PLASMA 268 ug/dL 204 - 475 11/02 Specimen Type: SERUM No comment entered. Ordering Provider: RADHA RAMON Report Released Date/Time: Nov 01, 2023 12:47 PM Reporting Lab: [facility] [facility] [address] [facility] [address] Performing Lab: [facility] [facility] [address] [address] [facility] [place] [facility] IRON & TIBC PANEL IRON [MASS/VOLUM E] IN SERUM OR PLASMA 195 ug/dL 40 - 160 11/02 H Specimen Type: SERUM No comment entered. Ordering Provider: RADHA RAMON Report Released Date/Time: Nov 01, 2023 12:47 PM Reporting Lab: [facility] [place] [facility] [address] [address] Performing Lab: [facility] [place] [facility] [address] [address] [facility] [place] [facility] IRON & TIBC PANEL IRON/IRON BINDING CAPACITY.TO KEVIN [MASS RATIO] IN SERUM OR PLASMA 72.8 20.0 - 50.0 11/02 H Specimen Type: SERUM No comment entered. Ordering Provider: RADHA RAMON Report Released Date/Time: Nov 01, 2023 12:47 PM Reporting Lab: [facility] [place] [address] [address] Performing Lab: [facility] [place] [address] [address] [facility] [place] [facility] IRON & TIBC PANEL TRANSFERRIN [MASS/VOLUM E] IN SERUM OR PLASMA 203 mg/dL 200 - 360 11/02 Specimen Type: SERUM No comment entered. Ordering Provider: RADHA RAMON Report Released Date/Time: Nov 01, 2023 12:47 PM Reporting Lab: [facility] [place] [address] [address] Performing Lab: [facility] [place] [address] [address] [facility] [place] [facility] CBC LEUKOCYTES [#/VOLUME] IN BLOOD BY AUTOMATED COUNT 7.31 10*3/u L 4.50 - 11.00 11/02 Specimen Type: BLOOD No comment entered. Ordering Provider: RADHA RAMON Report Released Date/Time: Nov 01, 2023 12:47 PM Reporting Lab: [facility] [address] [address] Performing Lab: [facility] [place] [address] [address] [facility] CBC ERYTHROCYTE S [#/VOLUME] IN BLOOD BY AUTOMATED COUNT 5.14 10*6/u L 4.23 - 5.66 11/02 Specimen Type: BLOOD No comment entered. Ordering Provider: RADHA RAMON Report Released Date/Time: Nov 01, 2023 12:47 PM Reporting Lab: [facility] [place] [facility] [address] [facility] [address] Performing Lab: [facility] [place] [facility] [address] [facility] [address] [facility] CBC HEMOGLOBIN [MASS/VOLUM E] IN BLOOD 16.5 g/dL 12.8 - 17 11/02 Specimen Type: BLOOD No comment entered. Ordering Provider: RADHA RAMON Report Released Date/Time: Nov 01, 2023 12:47 PM Reporting Lab: [facility] [place] [facility] [address] [facility] [address] Performing Lab: [facility] [place] [facility] [address] [facility] [address] [facility] CBC HEMATOCRIT [VOLUME FRACTION] OF BLOOD BY AUTOMATED COUNT 49.0 39.2 - 50.4 11/02 Specimen Type: BLOOD No comment entered. Ordering Provider: RADHA RAMON Report Released Date/Time: Nov 01, 2023 12:47 PM Reporting Lab: [facility] [place] [facility] [address] [facility] [address] Performing Lab: [facility] [place] [facility] [address] [facility] [address] [facility] CBC MCV [ENTITIC VOLUME] BY AUTOMATED COUNT 95.3 fL 82 - 99 11/02 Specimen Type: BLOOD No comment entered. Ordering Provider: RADHA RAMON Report Released Date/Time: Nov 01, 2023 12:47 PM Reporting Lab: [facility] [place] [facility] [address] [facility] [address] Performing Lab: [facility] [place] [facility] [address] [facility] [address] [facility] CBC MCHC [MASS/VOLUM E] BY AUTOMATED COUNT 33.7 g/dL 30.8 - 35.1 11/02 Specimen Type: BLOOD No comment entered. Ordering Provider: RADHA RAMON Report Released Date/Time: Nov 01, 2023 12:47 PM Reporting Lab: [facility] [place] [facility] [address] [facility] [address] Performing Lab: [facility] [place] [facility] [address] [facility] [address] [facility] CBC PLATELETS [#/VOLUME] IN BLOOD BY AUTOMATED COUNT 182 10*3/u L 140 - 360 11/02 Specimen Type: BLOOD No comment entered. Ordering Provider: RADHA RAMON Report Released Date/Time: Nov 01, 2023 12:47 PM Reporting Lab: [facility] [place] [facility] [address] [facility] [address] Performing Lab: [facility] [place] [facility] [address] [facility] [address] [facility] [place] [facility] CBC ERYTHROCYTE DISTRIBUTIO N WIDTH [RATIO] BY AUTOMATED COUNT 12.3 12.0 - 16.0 11/02 Specimen Type: BLOOD No comment entered. Ordering Provider: RADHA RAMON Report Released Date/Time: Nov 01, 2023 12:47 PM Reporting Lab: [facility] [place] [facility] [address] [facility] [address] Performing Lab: [facility] [place] [facility] [address] [facility] [address] [facility] [place] [facility] CBC MCH [ENTITIC MASS] BY AUTOMATED COUNT 32.1 pg 26.2 - 32.6 11/02 Specimen Type: BLOOD No comment entered. Ordering Provider: RADHA RAMON Report Released Date/Time: Nov 01, 2023 12:47 PM Reporting Lab: [facility] [place] [facility] [address] [facility] [address] Performing Lab: [facility] [place] [address] [address] [facility] [place] LIVER FUNCTION PROTEIN [MASS/VOLUM E] IN SERUM OR PLASMA 6.4 g/dL 6.0 - 8.3 11/02 Specimen Type: SERUM No comment entered. Ordering Provider: RADHA RAMON Report Released Date/Time: Nov 01, 2023 12:47 PM Reporting Lab: [facility] [place] [facility] [address] [facility] [address] Performing Lab: [facility] [place] [facility] [address] [facility] [address] [facility] [place] LIVER FUNCTION ALBUMIN [MASS/VOLUM E] IN SERUM OR PLASMA 4.1 g/dL 3.5 - 5.0 11/02 Specimen Type: SERUM No comment entered. Ordering Provider: RADHA RAMON Report Released Date/Time: Nov 01, 2023 12:47 PM Reporting Lab: [facility] [place] [facility] [address] [facility] [address] Performing Lab: [facility] [place] [facility] [address] [facility] [address] [facility] LIVER FUNCTION ALKALINE PHOSPHATASE [ENZYMATIC ACTIVITY/VO LUME] IN SERUM OR PLASMA 75 U/L 40 - 150 11/02 Specimen Type: SERUM No comment entered. Ordering Provider: RADHA RAMON Report Released Date/Time: Nov 01, 2023 12:47 PM Reporting Lab: [facility] [place] [facility] [address] [facility] [address] Performing Lab: [facility] [place] [facility] [address] [facility] [address] [facility] LIVER FUNCTION ASPARTATE AMINOTRANSF ERASE [ENZYMATIC ACTIVITY/VO LUME] IN SERUM OR PLASMA 22 U/L 5 - 34 11/02 Specimen Type: SERUM No comment entered. Ordering Provider: RADHA RAMON Report Released Date/Time: Nov 01, 2023 12:47 PM Reporting Lab: [facility] [place] [facility] [address] [facility] [address] Performing Lab: [facility] [place] [facility] [address] [facility] [address] [facility] LIVER FUNCTION ALANINE AMINOTRANSF ERASE [ENZYMATIC ACTIVITY/VO LUME] IN SERUM OR PLASMA 35 U/L 11/02 Specimen Type: SERUM No comment entered. Ordering Provider: RADHA RAMON Report Released Date/Time: Nov 01, 2023 12:47 PM Reporting Lab: [facility] [address] [facility] [address] Performing Lab: [facility] [place] [facility] [address] [facility] [address] [facility] LIVER FUNCTION BILIRUBIN.T OTAL [MASS/VOLUM E] IN SERUM OR PLASMA 0.6 mg/dL 0.2 - 1.2 11/02 Specimen Type: SERUM No comment entered. Ordering Provider: RADHA RAMON Report Released Date/Time: Nov 01, 2023 12:47 PM Reporting Lab: [facility] [place] [facility] [address] [facility] [address] Performing Lab: [facility] [place] [facility] [address] [facility] [address] [facility] Vital Signs Combined list of inpatient and outpatient Vital Signs from Department of Defense and Veterans Affairs, ranging from 12 months to all on record, depending upon the facility. Vital Sign Value Date Comments Source SYSTOLIC BLOOD PRESSURE 133 05/11/19 25 10:36:03 [facility] [facility] DIASTOLIC BLOOD PRESSURE 79 025 10:36:03 [facility] [place] [facility] PULSE OXIMETRY 91 05/10/2024 10:36:03 [facility] WEIGHT 261 05/10/2024 10:36:03 [facility] BMI 36 kg/m2 05/10/2024 10:36:03 [facility] PAIN 1 05/10/2024 10:36:03 [facility] [place] [facility] TEMPERATURE 98.3 05/10/2024 10:36:03 [facility] [...] Source [facility] CMPTR OPHTH IMG OPTIC NERVE [id number] Diagnos is: ICD-10- CM H40.013 Open angle with borderl ine finding s, low risk, bilater al JAX,MI KALEB 03/01 [facility] [place] 1/ [id number] Diagnos is: ICD-10- CM 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, upper and lower eyelids CLAUDIA CAMARA 03/01 [facility] FIT SPECTACLES MULTIFOCAL [id number] Diagnos is: ICD-10- CM Z46.0 Encount er for fit/adj st of spectac les and contact lenses CLAUDIA CAMARA 03/01 [facility] En[facility] [id number] 03/17 [facility] En[facility] [id number] 03/22 [facility] En[facility] [id number] 03/23 [facility] En[facility] [id number] 04/06 [facility] En[facility] [id number] 05/11 [facility] OFFICE O/P EST MOD 30 MIN [id number] Diagnos is: ICD-10- CM J43.2 Centril obular emphyse GORDON Bee MMED JAWED 05/11 [facility] QNHP OL DIG ASSMT&MGMT 11-20 [id number] Diagnos is: ICD-10- CM R91.1 Solitar y pulmona ry nodule LUIGI GOMEZ L 05/11 [facility] En[facility] [id number] 07/25 [facility] En[facility] [id number] 07/26 [facility] En[facility] [id number] 08/14 [facility] En[facility] [id number] 08/29 [facility] En[facility] [id number] 09/04 [facility] En[facility] [id number] 09/28 [facility] [id number] 10/27 [facility] En[facility] [id number] 10/30 [facility] En[facility] [id number] 10/31 [facility] En[facility] [id number] 11/06 [facility] OFFICE O/P EST HI 40 MIN [id number] 1. Diagnos is: ICD-10- CM J43.2 Centril obular emphyse chiquita PONCELO,TI NA 11/10 [facility] En[facility] [id number] 11/10 [facility] [id number] 1.11/15 [facility] En[facility] [id number] [facility] En[facility] [id number] 1.11/24 [facility] OFFICE O/P NEW MOD 45 MIN [id number] Diagnos is: ICD-10- CM L57.0 Actinic keratos is ALECIA ESTEBAN 11/28 [facility] En[facility] [id number] 1.12/06 [facility] [id number] 01/03 [facility] En[facility] [id number] 01/18 [facility] En[facility] [id number] 02/12 [facility] En[facility] [id number] 02/12 [facility] [id number] 02/20 [facility] Encounter [id number] 02/21 [facility] OFFICE O/P EST MOD 30 MIN [id number] Diagnos is: ICD-10- CM L71.1 Rhinoph yma CLAUDIA CAMARA 03/20 [facility] CPTRZD OPH DX IMG ANT SGM [id number] Diagnos is: ICD-10- CM H40.013 Open angle with borderl ine finding s, low risk, bilater al CLAUDIA CAMARA 03/20 [facility] FIT SPECTACLES MULTIFOCAL [id number] Diagnos is: ICD-10- CM Z46.0 Encount er for fit/adj st of spectac les and contact lenses CLAUDIA CAMARA 03/22 [facility] En[facility] [id number] 04/11 [facility] En[facility] [id number] 04/12 [facility] En[facility] [id number] 04/18 [facility] En[facility] [id number] 05/08 [facility] [id number] 05/10 [facility] OFFICE O/P EST MOD 30 MIN [id number] Diagnos is: ICD-10- CM J43.2 Centril obular emphyse ma FURCOLO,TI NA 05/10 [facility] NQHP OL DIG ASSMT&MGMT 21+ [id number] Diagnos is: ICD-10- CM Z12.2 Encntr screen for maligna nt neoplas m of respira tory organs KRISTYN CERVANTES 05/10 [facility] En[facility] [id number] 05/29 [facility] En[facility] [id number] 05/29 [facility] En[facility] [id number] 06/20 [facility] En[facility] [id number] 06/25 [facility] Encounter [id number] 07/05 [facility] En[facility] [id number] 07/05 [facility] En[facility] [id number] 07/12 [facility] [place] [place] [facility] Outpatient Encounter [id number] 07/23 [facility] [place] [facility] Social History Combined list of available smoking, tobacco, and other social history from Department of Defense and Veterans Affairs facilities. Social History Type Response Date Comment Source Tobacco smoking status [facility]-TOBACCO USE SOME DAYS CIGARETTES 05/10/2024 [facility] [place] [facility] 05/10/2024 [facility] [place] [facility] History of tobacco use PA-TOBACCO USER EVERY DAY 01/12/2023 [facility] [place] [facility] History of tobacco use PA-TOBACCO USER EVERY DAY 10/23/2021 [facility] [place] [facility] History of tobacco use PA-TOBACCO USER EVERY DAY 10/29/2020 [facility] [place] [facility] History of tobacco use PA-TOBACCO FORMER USER 10/10/2019 [facility] [place] [facility] of [facility] 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 10/26/2018 [facility] [place] [facility] History of tobacco use CURRENT SMOKER 08/04/2017 [facility] [facility] History of tobacco use QUIT TOBACCO USE IN PAST YEAR 01/31/2017 31 days [facility] [place] [facility] History of tobacco use CURRENT SMOKER 01/26/2016 [facility] [facility] History of tobacco use QUIT TOBACCO USE IN PAST YEAR 02/20/2015 [facility] [facility] History of tobacco use CURRENT SMOKER 06/17/2014 Reports being an off and on smoker -cigarette s [facility] [place] [facility] History of tobacco use CURRENT SMOKER 09/14/2011 less than a pack a day [facility] [place] [facility] History of tobacco use CURRENT SMOKER 03/09/2010 1 ppd [facility] [facility] History of tobacco use V1-PT DECLINES TOBACCO CESSATION MEDS 09/29/2009 [facility] History of tobacco use CURRENT SMOKER 01/29/2009 1 ppd [facility] History of tobacco use CURRENT SMOKER 03/17/2005 [facility] Plan of Care List of future care activities from [facility] facilities. Additional future care activities may be listed in the Assessment and Plan section. Date/Time Care Activity Care Activity Detail Facili ty 08/31/2024 AMBULATORY - MEDICINE AMBULATORY - [facility] Advance Directives List of completed, amended, or rescinded Advance Directives on record at [facility] facilities. An actual copy of the Directive is not included. Date Advance Directive Provider Source 11/11/2023 ADVANCE DIRECTIVE [facility]
== END 2024-08-28 09:50 | disposition home or self-care (01) ==
LOC: HO.BBR 09:49
PROVIDERS: PCP Internal Medicine; Visit Provider Internal Medicine
DX: Z13.89 Encounter for screening for other disorder (principal)

== ENCOUNTER 2024-08-31 09:48 | Outpatient (AMB) | payer OTHER, SELFPAY ==
--- NOTE | 2024-08-31 09:58 | A.OFFVIS_ITS ---
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 He is a patient of Dr. Roblero. He seen for the following urologic conditions - lower urinary tract symptoms Follow-up from [facility] May stop tamsulosin Continue finasteride until runs out Improving symptoms Six-month follow-up check PSA Lower urinary tract symptoms On combination therapy - finasteride and tamsulosin Persistent weakness of stream with urinary urgency Bladder ultrasound - large PVR, 50 g prostate GreenLight laser 08/08 [facility] Medical History Frequent urination Nocturia Other obesity not elsewhere classified Other male erectile dysfunction Other hemochromatosis Impacted cerumen Depressive disorder, not elsewhere classified Centrilobular emphysema Elevated PSA Hemochromatosis Pulmonary nodules COPD (chronic obstructive pulmonary disease) Personal history of nicotine dependence BPH (benign prostatic hyperplasia) Erectile dysfunction Surgical History History of tonsillectomy History of appendectomy History of colonoscopy Family History Mother Sepsis Father GI cancer Social History Patient Tobacco Use Status: Current everyday Tobacco user Tobacco use type: Cigarette Cigarettes Per Day: 2 Years Smoked: smoked for 60 years 1PPD, quit a few days ago. started at 11 Review of Systems Const Denies chills and Denies fever(s) Card Reports no additional complaints and Denies syncope Resp Denies cough GI Denies abdominal pain and Denies heartburn Reports as per HPI and Denies change in libido Neuro Denies syncope Psych Denies change in libido Endo Denies change in libido Physical Exam Const General: cooperative, healthy appearing, comfortable and no acute distress Orientation/consciousness: patient oriented x3 HEENT Face and sinus: Yes normal facial exam Mouth: moist mucous membranes Neck Neck: Yes normal visual inspection, Yes full ROM and Yes trachea midline Chest Chest palpation & inspection: normal inspection of the chest Resp Effort & Inspection: normal respiratory effort, able to speak in complete sentences and no respiratory distress GI Inspection: Yes normal to inspection Back/Spine/Pelvis Cervical Spine: normal cervical lordosis Thoracic/Lumbar Spine: thoracic and lumbar spine normal to inspection Skin General skin exam: no rashes or lesions noted Neuro General: patient oriented x3, gait normal, tone normal and moves all extremities Extrem General: Yes normal to inspection and Yes capillary refill normal Assessment & Plan Assessment & Plan (1) Incomplete emptying of bladder due to benign prostatic hyperplasia: Code(s): N40.1 - Benign prostatic hyperplasia with lower urinary tract symptoms; R33.9 - Retention of urine, unspecified Category: Medical (2) BPH (benign prostatic hyperplasia): Code(s): N40.0 - Benign prostatic hyperplasia without lower urinary tract symptoms Category: Medical Plan Six-month follow-up PSA Orders: Orders Prostate Specific Antigen 6 Months N40.0 - Benign prostatic hyperplasia without lower urinary tract symptoms Patient Instructions: This note is constructed using voice recognition software. While every effort has been made to ensure accuracy relocation director errors may have been included. Imaging studies, laboratory and physical exam results were discussed and reviewed in detail. No major barriers to patient understanding were identified. An opportunity to ask questions regarding the treatment plan was provided. All questions were answered. The patient expressed understanding and agreement with the above treatment plan. The patient is aware they should contact our office by phone for worsening of their current condition or the appearance of new urologic symptoms. Compliance is encouraged with any medications and followup testing that is ordered. It is a privilege to participate in the urologic care of your patient. If you have any questions or concerns regarding treatment for the above conditions, or other urologic issues, please do not hesitate to contact me. The office telephone contact is [phone]. Sincerely, Dr Roe Serrano MD, [facility] - Urology Compassionate Specialist Care for the Genitourinary System Coding Level of Care Code Est Pt Level 3 (43864) Diagnoses Incomplete emptying of bladder due to benign prostatic hyperplasia N40.1; R33.9 BPH (benign prostatic hyperplasia) N40.0
== END 2024-08-31 10:32 | disposition home or self-care (01) ==
LOC: HO.HUSH 09:48
PROVIDERS: PCP Obstetrics & Gynecology; Visit Provider Urology
DX: N40.1 Benign prostatic hyperplasia with lower urinary tract symptoms (principal); R33.9 Retention of urine, unspecified; N40.0 Benign prostatic hyperplasia without lower urinary tract symptoms
CPT/HCPCS: 99024

== ENCOUNTER → 2024-08-31 09:48 | Outpatient (BNVA) | payer OTHER, SELFPAY | PROVIDERS: PCP Obstetrics & Gynecology; Visit Provider Urology | DX: N40.1 Benign prostatic hyperplasia with lower urinary tract symptoms (principal); R33.9 Retention of urine, unspecified | CPT/HCPCS: 99212 ==

== ENCOUNTER 2024-10-31 10:03 | Outpatient (REF) | payer OTHER, SELFPAY | END 2024-10-31 10:04 | disposition home or self-care (01) | LOC: HO.BBR 10:03 | PROVIDERS: PCP Internal Medicine; Visit Provider Internal Medicine | DX: Z13.89 Encounter for screening for other disorder (principal) ==

== ENCOUNTER 2025-01-01 09:40 | Outpatient (REF) | payer OTHER, SELFPAY | END 2025-01-01 09:41 | disposition home or self-care (01) | LOC: HO.BBR 09:40 | PROVIDERS: PCP Internal Medicine; Visit Provider Internal Medicine | DX: Z13.89 Encounter for screening for other disorder (principal) ==

== ENCOUNTER 2025-01-04 10:10 | Outpatient (AMB) | payer OTHER, SELFPAY ==
[2025-01-04 10:13] VITALS: BP 140/80; PULSE 92; O2SAT 92; BMI 34.2
--- NOTE | 2025-01-04 10:13 | A.OFFVIS_ITS ---
Vital Signs 01/04/25 10:13 Height 6 ft Weight 252 lb BMI 34.2 BP 140/80 H Blood Pressure Location Rt brachial Position Sitting Pulse 92 Pulse Source Pulse Oximeter Pulse Oximetry (%) 92 Oxygen Delivery Method Room Air Intake Visit Reasons: COPD Allergies varenicline (From Chantix) Allergy (Mild, Verified 01/04/25 10:18) Unknown HPI HPI COPD: Details: 74-year-old gentleman, recent 60 pack-year smoker, also underlying history of hemochromatosis on phlebotomy now followed for moderate COPD. He has been using Wixela and Spiriva together with albuterol MDI for underlying emphysema with reasonable control. He was tried on theophylline, however he did not have any symptomatic benefit. Patient has a follow-up CT chest at [facility] in April of 2024 that showed stable pulmonary nodules. He denies recent acute exacerbations. [facility] Medical History Frequent urination Nocturia Other obesity not elsewhere classified Other male erectile dysfunction Other hemochromatosis Impacted cerumen Depressive disorder, not elsewhere classified Centrilobular emphysema Elevated PSA Hemochromatosis Pulmonary nodules COPD (chronic obstructive pulmonary disease) Personal history of nicotine dependence BPH (benign prostatic hyperplasia) Erectile dysfunction Surgical History History of tonsillectomy History of appendectomy History of colonoscopy Family History Mother Sepsis Father GI cancer Social History Patient Tobacco Use Status: Current everyday Tobacco user Tobacco use type: Cigarette Cigarettes Per Day: 2 Years Smoked: smoked for 60 years 1PPD, quit a few days ago. started at 11 Review of Systems Const Denies daytime sleepiness, Denies excessive sweating, Denies fatigue, Denies fever(s), Denies lethargy, Denies malaise, Denies night sweats, Denies snoring and Denies weight loss Eyes Denies blurry vision and Denies itchy eyes ENT Denies nasal congestion, Denies post nasal drip, Denies sinus pain, Denies sinus pressure and Denies other ( Thrush) Card Denies chest pain, Denies pedal edema, Denies dyspnea, Denies orthopnea and Denies paroxysmal nocturnal dyspnea Resp Denies cough, Denies hemoptysis, Denies excessive phlegm production, Denies dysp catarino, Denies snoring and Denies wheezing GI Denies abdominal pain and Denies heartburn Musc Denies myalgias, Denies arthralgias and Denies joint swelling Skin/Breast Denies rash Neuro Denies memory loss and Denies seizure-like activity Psych Denies abnormal sleep pattern, Denies anxiety and Denies memory loss Endo Denies excessive sweating, Denies fatigue and Denies heat intolerance Colton/Lymph Denies easy bruising Aller/Immun Denies itchy eyes, Denies seasonal rhinorrhea and Denies wheezing Physical Exam Vital Signs: Last Vital Signs Pulse 92 01/04/25 10:13 BP 140/80 H 01/04/25 10:13 Pulse Ox 92 01/04/25 10:13 Oxygen Delivery Method Room Air 01/04/25 10:13 BMI result Body Mass Index 34.2 Const General: no acute distress and alert Nutritional Appearance: obese Orientation/consciousness: Other orientation findings ( oriented) HEENT Head: Yes atraumatic Eyes General: appearance normal, both eyes and all related structures Sclerae: sclerae normal EOM: EOMs intact bilaterally Neck Neck: Yes supple Lymphatic: no lymphadenopathy noted Resp Effort & Inspection: normal respiratory effort and no use of accessory muscles Auscultation: clear to auscultation bilaterally Cardio Rate: regular rate Rhythm: regular rhythm Heart sounds: no gallops, no murmurs and no rubs Skin General skin exam: other ( warm) Extrem General: No clubbing, No cyanosis and No edema Assessment & Plan Assessment & Plan (1) COPD (chronic obstructive pulmonary disease): Code(s): J44.9 - Chronic obstructive pulmonary disease, unspecified Category: Medical Plan: Well controlled on current regimen of Wixela, Spiriva, and albuterol MDI. Continue current regimen. (2) Personal history of nicotine dependence: Comment: (onset 11yo, 1ppd x 60yrs - recently quitting 2023 - does [facility]) Code(s): Z87.891 - Personal history of nicotine dependence Category: Medical Plan: Results of lung cancer screening CT chest from April of 2024 reviewed, no worrisome nodules, continue with yearly screening, next in April of 2025, done through [facility]. Coding Level of Care Code Est Pt Level 4 (77593) Diagnoses COPD (chronic obstructive pulmonary disease) J44.9 Personal history of nicotine dependence Z87.894
== END 2025-01-04 10:30 | disposition home or self-care (01) ==
LOC: HO.HPS 10:11
PROVIDERS: PCP Obstetrics & Gynecology; Referring Provider Internal Medicine Pulmonary Disease; Visit Provider Internal Medicine Pulmonary Disease
DX: J44.9 Chronic obstructive pulmonary disease, unspecified (principal); Z87.891 Personal history of nicotine dependence
CPT/HCPCS: 99214

== ENCOUNTER → 2025-01-04 10:10 | Outpatient (BNVA) | payer OTHER, SELFPAY | PROVIDERS: PCP Obstetrics & Gynecology; Visit Provider Internal Medicine Pulmonary Disease | DX: J44.9 Chronic obstructive pulmonary disease, unspecified (principal); F17.210 Nicotine dependence, cigarettes, uncomplicated; Z79.51 Long term (current) use of inhaled steroids | CPT/HCPCS: 99212 ==